=== PATIENT | female | born 1950 | race African-American/Black ===

== ENCOUNTER → 2016-06-27 | Outpatient (CLI) | payer OTHER, MEDICAID ==
[2015-09-28 11:19] VITALS: BP 183/88
[2016-06-27 10:46] LABS: BASOPHILS # (AUTO) 0.1 X10^3/uL (0.0-0.1); BASOPHILS % (AUTO) 0.7 % (0.2-1.0); EOSINOPHILS # (AUTO) 0.2 x10^3/uL (0.0-0.2); EOSINOPHILS % (AUTO) 1.5 % (0.9-2.9); HEMATOCRIT 37.7 % (36.0-47.0); HEMOGLOBIN 11.9 g/dL (12.0-16.0); LYMPHOCYTES # (AUTO) 2.8 X10^3/uL (1.3-2.9); LYMPHOCYTES % (AUTO) 18.6 % (21.0-51.0); MEAN CORPUSCULAR HEMOGLOBIN 25.9 pg (27.0-34.0); MEAN CORPUSCULAR HGB CONC 31.5 g/dL (33.0-35.0); MEAN CORPUSCULAR VOLUME 82.2 fL (80.0-100.0); MEAN PLATELET VOLUME 7.3 fL (7.4-11.0); MONOCYTES # (AUTO) 1.1 x10^3/uL (0.3-0.8); MONOCYTES % (AUTO) 7.4 % (0.0-13.0); NEUTROPHILS # (AUTO) 10.7 x10^3/uL (2.2-4.8); NEUTROPHILS % (AUTO) 71.8 % (42.0-75.0); PLATELET COUNT 329 X10^3/uL (150.0-450.0); RED BLOOD COUNT 4.59 X10^6/uL (3.5-5.4); RED CELL DISTRIBUTION WIDTH 15.2 % (11.6-16.5); RETICULOCYTE % 1.28 % (0.8-2.2); WHITE BLOOD COUNT 14.8 X10^3/uL (3.6-10.0)
[2016-06-27 11:00] LABS: ALANINE AMINOTRANSFERASE 40 Units/L (12-78); ALBUMIN 3.5 g/dL (3.4-5.0); ALKALINE PHOSPHATASE 73 Units/L (46-116); ASPARTATE AMINO TRANSFERASE 16 Units/L (15-37); BLOOD UREA NITROGEN 15 mg/dL (7-18); CALCIUM 8.4 mg/dL (8.5-10.1); CARBON DIOXIDE 30.2 mmol/L (21-32); CHLORIDE 106 mmol/L (98-107); CREATININE 0.89 mg/dL (0.55-1.02); GLUCOSE 85 mg/dL (65-99); MAGNESIUM 1.8 mg/dL (1.7-2.9); SODIUM 144 mmol/L (136-145); TOTAL PROTEIN 6.7 g/dL (6.4-8.2); eGFR BLACK RACES > 60 (>60); eGFR NON BLACK RACES > 60 (>60)
[2016-06-27 11:03] LABS: HEMOGLOBIN A1C 6.6 % (4.5-6.2)
[2016-06-27 11:10] LABS: CHOL/HDL RATIO 2.8 (0.0-5.0); TSH (3RD GENERATION) 0.334 uIU/mL (0.358-3.74)
[2016-06-27 11:41] LABS: PLATELET MORPHOLOGY COMMENT NORMAL (NORMAL)
[2016-06-30 14:08] LABS: METHYLMALONIC ACID <0.10 umol/L (0.00-0.40)
== END ==
LOC: LAB 08:57
PROVIDERS: ATTEND Nurse Practitioner Family
DX: K14.0 Glossitis (principal); I10 Essential (primary) hypertension; E78.4 Other hyperlipidemia; E03.8 Other specified hypothyroidism; K12.0 Recurrent oral aphthae; E55.9 Vitamin D deficiency, unspecified
CPT/HCPCS: 36415; 80053; 80061; 82306; 82607; 82615; 82746; 83036; 83735; 83918; 84207; 84443; 84630; 85025; 85045; 86256; 86340

== ENCOUNTER → 2016-06-28 | Outpatient (CLI) | payer OTHER, MEDICAID ==
[2015-09-28 11:19] VITALS: BP 183/88
[~2016-06-28] MED LIST: NS 100 ML IV 100 ML IV ONE
--- NOTE | 2016-06-28 13:56 | CT ---
HISTORY: Glossitis Study: CT soft tissue neck with and without contrast Comparison: 08/02/2012 Technique: Multiple axial images of the soft tissue neck were obtained from skull base to the aortic arch before and after the administration of IV contrast. Sagittal and coronal reformats were perfo rmed and reviewed. Dose reduction techniques including Automated Exposure Control (AEC) and adjustm ent of mA and kV were utilized. Findings: The visualized intracranial structures appear normal. The skull base and visualized cervical spine a re intact with mild spondylosis and degenerative disc space narrowing at C4-C5. The facial bones chalino ear grossly intact. There is minimal right sphenoid sinus mucosal thickening. Otherwise the visualiz ed paranasal sinuses and mastoid air cells are clear. The visualized lung apices are clear. The thyr oid gland appears normal. The aerodigestive structures appear normal. The prevertebral soft tissues and paraspinal soft tissue s are unremarkable. The epiglottis and laryngeal structures appear normal. No evidence of mass or ab scess. No pathologically enlarged lymph nodes are identified. No abnormal enhancement. The carotid, parotid, parapharyngeal, boat worker, and retropharyngeal space s appear normal. The pharyngeal mucosal surfaces appear grossly normal. Normal appearance of the par otid and submandibular glands. There is mild to moderate atherosclerotic disease at the bilateral ca rotid bifurcations. IMPRESSION: Normal CT of the neck soft tissues. Reported By:
== END ==
LOC: RAD 10:14
PROVIDERS: ATTEND Nurse Practitioner Family
DX: K14.0 Glossitis (principal); H92.02 Otalgia, left ear
CPT/HCPCS: 70492; A4222

== ENCOUNTER 2016-09-01 09:30 | Emergency (ER) | payer OTHER, MEDICAID ==
[2016-09-01 09:41] VITALS: BP 126/80; BMI 34.7
--- NOTE | 2016-09-01 10:36 | DR.GENAD ---
HPI - PCP Primary Care Physician: TULIO - Complaint/Symptoms Chief Complaint Doctors Comments: Patient states that she has had constipation for one week was advised to take laxatives and has had results with BM. A couple of times she notices blood in her stool and some in stool. She dmits to a colonscopy more than five years ago. Denies history of hemorrhoids. She was seen two times this week by her pulmologist due to COPD and was told she has CHF. Chief Complaint:: PT C/O BLOOD IN STOOL. PT STATES SHE WAS CONSTIPATED LAST WEEK AND SHE HAS GOT BETTER. THIS PAST SUNDAY SHE STARTED SEEING BRIGHT RED BLOOD. THROUGHOUT THE DAYS SHE STATES SHE HAS BEEN HAVING DARK TARY STOOLS WITH A BAD SMELL. - Source History Provided: Patient - Mode of Arrival Mode of Arrival: Ambulatory - Timing Onset of Chief Complaint: 08/27/16 PMH - PMH Past Medical History: Yes Past Medical History: Anxiety, Arthritis, CHF, COPD, Coronary Artery Disease, Depression, Migraines, Hypertension, Hypothyroidism Past Surgical History: Yes Surgical History: Cholecystectomy, Hysterectomy, Joint Replacement, Ortho Surgery - Family History History of Family Medical Conditions: Yes Family Medical History: Hypertension - Social History Does any household member use tobacco: Yes Alcohol Use: None Do you use any recreational Drugs:: No Lives With: Alone Lives Where: Home - infectious screening In the last 2 months have you had wt loss of >10#?: NO Have you had fever, night sweats or hemotysis?: No Have you traveled outside the country in the last 6 months?: No Isolation: Standard ROS - Review of Systems Eyes: No Symptoms Reported ENTM: No Symptoms Reported Respiratoy: No Symptoms Reported Cardiovascular: No Symptoms Reported Gastrointestinal/Abdominal: No Symptoms Reported Genitourinary: No Symptoms Reported Neurological: No Symptoms Reported Musculoskeletal: No Symptoms Reported Integumentary: No Symptoms Reported Hematologic/Lymphatic: No Symptoms Reported Endocrine: No Symptoms Reported Psychiatric: No Symptoms Reported All Other Systems: Reviewed and Negative PE - Vital Signs Vitals: Temperature 98.9 F Pulse Rate [Left Radial] 98 Pulse Rate 109 Respiratory Rate 20 Blood Pressure [Left Calf] 140/77 Blood Pressure [Left Arm] 153/82 Blood Pressure [Right Arm] 183/88 Blood Pressure 126/80 O2 Sat by Pulse Oximetry 98 - General Limitations: No Limitations General Appearance: Alert, In No Apparent Distress - Head Head Exam: Normal Inspection, Atraumatic - Eyes Eye exam: Normal Appearance, PERRL, EOMI - ENT ENT Exam: Normal Exam External Ear Exam: Normal External Inspection TM/Canal Exam: Bilateral Normal Nose Exam: Normal Nose Exam Mouth Exam: Normal Inspection Throat Exam: Normal Inspection - Chest Chest Inspection: Normal Inspection - Respiratory Respiratory Exam: Normal Lung Sounds Bilat Respiratory Exam: Bilateral Clear to Auscultation - Cardiovascular Cardiovascular Exam: Regular Rate, Normal Rhythm - Abdominal Exam Abdominal Exam: Normal Inspection Abdominal Tenderness: negative: RUQ, RLQ, LUQ, LLQ, Epigastrium, Suprapubic, Diffuse, Mild, Moderate, Severe, Other - Extremities Extremities Exam: Normal Inspection, Edema (2+pitting) - Back Back Exam: Normal Inspection - Neurologic Neurological Exam: Alert, Oriented X3, CN II-XII Intact - Psychiatric Psychiatric Exam: Normal Affect, Normal Mood - Skin Skin Exam: Warm, Dry, Intact (Rectum: w/o fissure, negative for hemorrhoid) ROR - Labs Reviewed Result Diagrams: 09/01/16 11:08 09/01/16 11:08 Laboratory: WBC 12.2 X10^3/uL (3.6-10.0) H 09/01/16 11:08 RBC 3.59 X10^6/uL (3.5-5.4) 09/01/16 11:08 Hgb 9.3 g/dL (12.0-16.0) L 09/01/16 11:08 Hct 29.3 % (36.0-47.0) L 09/01/16 11:08 MCV 81.8 fL (80.0-100.0) 09/01/16 11:08 MCH 25.8 pg (27.0-34.0) L 09/01/16 11:08 MCHC 31.5 g/dL (33.0-35.0) L 09/01/16 11:08 RDW 16.6 % (11.6-16.5) H 09/01/16 11:08 Plt Count 407 X10^3/uL (150.0-450.0) 09/01/16 11:08 Plt Count Comment Adequate (ADEQUATE) 09/01/16 11:08 MPV 7.8 fL (7.4-11.0) 09/01/16 11:08 Neut % 66.0 % (42.0-75.0) 09/01/16 11:08 Lymph % 21.2 % (21.0-51.0) 09/01/16 11:08 [place] % 8.5 % (0.0-13.0) 09/01/16 11:08 Eos % 3.6 % (0.9-2.9) H 09/01/16 11:08 Baso % 0.7 % (0.2-1.0) 09/01/16 11:08 Neut # 8.0 x10^3/uL (2.2-4.8) H 09/01/16 11:08 Lymph # 2.6 X10^3/uL (1.3-2.9) 09/01/16 11:08 [place] # 1.0 x10^3/uL (0.3-0.8) H 09/01/16 11:08 Eos # 0.4 x10^3/uL (0.0-0.2) H 09/01/16 11:08 Baso # 0.1 X10^3/uL (0.0-0.1) 09/01/16 11:08 Absolute Nucleated RBC 0.1 /100WBC 09/01/16 11:08 Plt Morphology Comment Normal (NORMAL) 09/01/16 11:08 RBC Morphology Normal (NORMAL) 09/01/16 11:08 Sodium 140 mmol/L (136-145) 09/01/16 11:08 Corrected Sodium TNP 09/01/16 11:08 Potassium 4.1 mmol/L (3.5-5.1) 09/01/16 11:08 Chloride 106 mmol/L (98-107) 09/01/16 11:08 Carbon Dioxide 26.6 mmol/L (21-32) 09/01/16 11:08 BUN 15 mg/dL (7-18) 09/01/16 11:08 Creatinine 1.00 mg/dL (0.55-1.02) 09/01/16 11:08 Est GFR (MDRD) Af Amer > 60 (>60) 09/01/16 11:08 Est GFR (MDRD) Non-Af 59 (>60) 09/01/16 11:08 Glucose 97 mg/dL (65-99) 09/01/16 11:08 Calcium 8.8 mg/dL (8.5-10.1) 09/01/16 11:08 Corrected Calcium 9.4 mg/dL (8.5-10.1) 09/01/16 11:08 Total Bilirubin 0.30 mg/dL (0.2-1.0) 09/01/16 11:08 AST 22 Units/L (15-37) 09/01/16 11:08 ALT 30 Units/L (12-78) 09/01/16 11:08 Alkaline Phosphatase 63 Units/L (46-116) 09/01/16 11:08 Total Protein 7.0 g/dL (6.4-8.2) 09/01/16 11:08 Albumin 3.2 g/dL (3.4-5.0) L 09/01/16 11:08 Globulin 3.8 g/dL (2.5-4.5) 09/01/16 11:08 Albumin/Globulin Ratio 0.8 Ratio (1.1-2.1) L 09/01/16 11:08 Stool Description Fob tube 09/01/16 10:51 Stl Occult Blood (IFOB) Positive (NEGATIVE) A 09/01/16 10:51 - Diagnosis Discharge Problem: Rectal bleed - Discharge Plan Condition: Stable - Follow ups/Referrals Follow ups/Referrals: NATANAEL ANTUNEZ [Primary Care Provider] - 3 days - Instructions
[2016-09-01 11:31] LABS: ALANINE AMINOTRANSFERASE 30 Units/L (12-78); ALBUMIN 3.2 g/dL (3.4-5.0); ALKALINE PHOSPHATASE 63 Units/L (46-116); ASPARTATE AMINO TRANSFERASE 22 Units/L (15-37); BLOOD UREA NITROGEN 15 mg/dL (7-18); CALCIUM 8.8 mg/dL (8.5-10.1); CARBON DIOXIDE 26.6 mmol/L (21-32); CHLORIDE 106 mmol/L (98-107); COR CA(FOR HYPOALB) 9.4 mg/dL (8.5-10.1); GLUCOSE 97 mg/dL (65-99); SODIUM 140 mmol/L (136-145); eGFR BLACK RACES > 60 (>60); eGFR NON BLACK RACES 59 (>60)
[2016-09-01 12:04] LABS: BASOPHILS # (AUTO) 0.1 X10^3/uL (0.0-0.1); BASOPHILS % (AUTO) 0.7 % (0.2-1.0); EOSINOPHILS # (AUTO) 0.4 x10^3/uL (0.0-0.2); EOSINOPHILS % (AUTO) 3.6 % (0.9-2.9); HEMATOCRIT 29.3 % (36.0-47.0); HEMOGLOBIN 9.3 g/dL (12.0-16.0); LYMPHOCYTES # (AUTO) 2.6 X10^3/uL (1.3-2.9); LYMPHOCYTES % (AUTO) 21.2 % (21.0-51.0); MEAN CORPUSCULAR HEMOGLOBIN 25.8 pg (27.0-34.0); MEAN CORPUSCULAR HGB CONC 31.5 g/dL (33.0-35.0); MEAN CORPUSCULAR VOLUME 81.8 fL (80.0-100.0); MEAN PLATELET VOLUME 7.8 fL (7.4-11.0); MONOCYTES % (AUTO) 8.5 % (0.0-13.0); PLATELET COUNT 407 X10^3/uL (150.0-450.0); RED BLOOD COUNT 3.59 X10^6/uL (3.5-5.4); RED CELL DISTRIBUTION WIDTH 16.6 % (11.6-16.5); WHITE BLOOD COUNT 12.2 X10^3/uL (3.6-10.0)
[2016-09-01 12:05] LABS: PLATELET MORPHOLOGY COMMENT NORMAL (NORMAL)
== END 2016-09-01 11:55 | disposition home or self-care (01) ==
LOC: ER 09:46
DX: K62.5 Hemorrhage of anus and rectum (principal)
CPT/HCPCS: 36415; 80053; 82270; 85025; 99282

== ENCOUNTER → 2016-09-11 | Outpatient (CLI) | payer OTHER, MEDICAID ==
[2016-09-01 09:41] VITALS: BP 126/80
[2016-09-11 13:57] LABS: ALANINE AMINOTRANSFERASE 24 Units/L (12-78); ALBUMIN 3.2 g/dL (3.4-5.0); ALKALINE PHOSPHATASE 66 Units/L (46-116); ASPARTATE AMINO TRANSFERASE 16 Units/L (15-37); BLOOD UREA NITROGEN 7 mg/dL (7-18); CALCIUM 9.1 mg/dL (8.5-10.1); CARBON DIOXIDE 24.8 mmol/L (21-32); CHLORIDE 106 mmol/L (98-107); COR CA(FOR HYPOALB) 9.7 mg/dL (8.5-10.1); COR NA(FOR HYPERGLY) 142 mmol/L (136-145); GLUCOSE 111 mg/dL (65-99); SODIUM 142 mmol/L (136-145); TOTAL PROTEIN 7.2 g/dL (6.4-8.2); eGFR BLACK RACES > 60 (>60); eGFR NON BLACK RACES 59 (>60)
[2016-09-11 14:21] LABS: BASOPHILS # (AUTO) 0.1 X10^3/uL (0.0-0.1); BASOPHILS % (AUTO) 1.1 % (0.2-1.0); EOSINOPHILS # (AUTO) 0.2 x10^3/uL (0.0-0.2); EOSINOPHILS % (AUTO) 2.3 % (0.9-2.9); HEMATOCRIT 30.2 % (36.0-47.0); HEMOGLOBIN 9.5 g/dL (12.0-16.0); LYMPHOCYTES # (AUTO) 2.4 X10^3/uL (1.3-2.9); LYMPHOCYTES % (AUTO) 24.4 % (21.0-51.0); MEAN CORPUSCULAR HEMOGLOBIN 25.8 pg (27.0-34.0); MEAN CORPUSCULAR HGB CONC 31.4 g/dL (33.0-35.0); MEAN PLATELET VOLUME 7.3 fL (7.4-11.0); MONOCYTES % (AUTO) 9.6 % (0.0-13.0); NEUTROPHILS # (AUTO) 6.2 x10^3/uL (2.2-4.8); NEUTROPHILS % (AUTO) 62.6 % (42.0-75.0); PLATELET COUNT 700 X10^3/uL (150.0-450.0); RED BLOOD COUNT 3.68 X10^6/uL (3.5-5.4); RED CELL DISTRIBUTION WIDTH 17.3 % (11.6-16.5); RETICULOCYTE % 3.76 % (0.8-2.2); WHITE BLOOD COUNT 9.9 X10^3/uL (3.6-10.0)
[2016-09-11 14:36] LABS: HYPOCHROMASIA 1+; PLATELET MORPHOLOGY COMMENT NORMAL (NORMAL); POIKILOCYTOSIS 1+
[2016-09-14 06:13] LABS: METHYLMALONIC ACID 0.14 umol/L (0.00-0.40)
== END ==
LOC: LAB 13:11
PROVIDERS: ATTEND Nurse Practitioner Family
DX: I10 Essential (primary) hypertension (principal); R20.0 Anesthesia of skin
CPT/HCPCS: 36415; 80053; 82607; 82615; 82746; 83918; 85025; 85045; 86256; 86340

== ENCOUNTER → 2016-09-15 | Outpatient (CLI) | payer OTHER, MEDICAID ==
[2016-09-01 09:41] VITALS: BP 126/80
== END ==
LOC: RT 14:13
PROVIDERS: ATTEND Nurse Practitioner Family
DX: R20.0 Anesthesia of skin (principal)
CPT/HCPCS: 95909

== ENCOUNTER → 2016-09-18 | Outpatient (CLI) | payer OTHER, MEDICAID ==
[2015-09-28 11:19] VITALS: BP 183/88
[~2016-09-18] MED LIST changes: +LEXISCAN IV ONE; -NS 100 ML IV 100 ML IV ONE
[2016-09-18 09:29] LABS: BASOPHILS # (AUTO) 0.1 X10^3/uL (0.0-0.1); BASOPHILS % (AUTO) 1.2 % (0.2-1.0); EOSINOPHILS # (AUTO) 0.3 x10^3/uL (0.0-0.2); EOSINOPHILS % (AUTO) 2.9 % (0.9-2.9); HEMATOCRIT 31.5 % (36.0-47.0); HEMOGLOBIN 9.9 g/dL (12.0-16.0); LYMPHOCYTES # (AUTO) 2.8 X10^3/uL (1.3-2.9); LYMPHOCYTES % (AUTO) 24.7 % (21.0-51.0); MEAN CORPUSCULAR HEMOGLOBIN 25.2 pg (27.0-34.0); MEAN CORPUSCULAR HGB CONC 31.3 g/dL (33.0-35.0); MEAN CORPUSCULAR VOLUME 80.5 fL (80.0-100.0); MEAN PLATELET VOLUME 6.8 fL (7.4-11.0); MONOCYTES % (AUTO) 8.6 % (0.0-13.0); NEUTROPHILS % (AUTO) 62.6 % (42.0-75.0); PLATELET COUNT 597 X10^3/uL (150.0-450.0); RED BLOOD COUNT 3.91 X10^6/uL (3.5-5.4); RED CELL DISTRIBUTION WIDTH 16.7 % (11.6-16.5); WHITE BLOOD COUNT 11.2 X10^3/uL (3.6-10.0)
[2016-09-18 09:50] LABS: HYPOCHROMASIA SLIGHT; PLATELET MORPHOLOGY COMMENT NORMAL (NORMAL)
== END ==
LOC: RAD 08:57
PROVIDERS: ATTEND Internal Medicine Cardiovascular Disease
DX: R07.89 Other chest pain (principal); D61.818 Other pancytopenia
CPT/HCPCS: 36415; 85025; A4222; J2785

== ENCOUNTER 2016-09-28 07:18 | Day surgery (SDC) | payer OTHER, MEDICAID ==
[2016-09-28] MEDS ORDERED: D5 LR 1000 ML 1,000 ML IV ONE (07:47)
[2016-09-28] MEDS ORDERED: DIPRIVAN VIAL 20 ML ONE (09:07)
[2016-09-28] MEDS ORDERED: DIPRIVAN VIAL 10 ML ONE (09:24)
[2016-09-28 09:42] VITALS: BP 144/73
== END 2016-09-28 09:44 | disposition home or self-care (01) ==
LOC: SURG1 07:18
PROVIDERS: ATTEND Internal Medicine Gastroenterology
PROC: 0DJD8ZZ Inspection of Lower Intestinal Tract, Via Natural or Artificial Opening Endoscopic (ICD-10-PCS; principal; 2016-09-28 09:15)
PROC: 0DBM8ZX Excision of Descending Colon, Via Natural or Artificial Opening Endoscopic, Diagnostic (ICD-10-PCS; principal; 2016-09-28 09:15)
DX: K92.1 Melena (principal); R19.4 Change in bowel habit; K63.5 Polyp of colon; K64.0 First degree hemorrhoids; D12.4 Benign neoplasm of descending colon
CPT/HCPCS: A4217; J3490; J7120

== ENCOUNTER → 2016-10-02 | Outpatient (CLI) | payer OTHER, MEDICAID | LOC: RAD 08:47 | PROVIDERS: ATTEND Nurse Practitioner Family | DX: R22.32 Localized swelling, mass and lump, left upper limb (principal); R07.89 Other chest pain ==

== ENCOUNTER → 2016-10-11 | Outpatient (CLI) | payer OTHER, MEDICAID ==
[2016-09-28 09:42] VITALS: BP 144/73
--- NOTE | 2016-10-11 12:02 | MRI ---
HISTORY: Numbness of fingers. Study: MRI cervical spine without contrast. Comparison: Cervical spine series dated November 04, 2013. Technique: Multiplanar multisequence MRI of the cervical spine was obtained utilizing standard depar tmental protocol. Findings: The visualized posterior fossa appears normal. No cerebellar tonsillar ectopia. No acute fracture or listhesis. Multilevel disc desiccation with associated mild disc height loss and type 2 Modic endpl ate changes. 7 mm T1/T2 bright focus within the T1 vertebral body most likely representing a benign hemangioma. Remaining bone marrow signal is unremarkable. The visualized spinal cord demonstrates no rmal course, caliber, and signal characteristics. C2 -- C3: No significant disc bulge, neural foraminal narrowing, or spinal canal stenosis. C3 -- C4: Broad-based disc bulge with associated uncovertebral hypertrophy causing bilateral mild/mo derate neural foraminal narrowing and spinal canal stenosis to 9 mm. C4 -- C5: Broad-based disc bulge causing spinal canal stenosis to 11 mm. No significant neural santosh inal narrowing. C5 -- C6: Broad-based disc bulge and associated uncovertebral hypertrophy causing mild/moderate bila teral neural foraminal narrowing and spinal canal stenosis to 11 mm. C6 -- C7: Broad-based disc bulge and associated uncovertebral hypertrophy causing mild bilateral alis ral foraminal narrowing and spinal canal stenosis to 10 mm. C7 -- T1: No significant disc bulge, neural foraminal narrowing, or spinal canal stenosis. IMPRESSION: Broad-based disc bulges and associated uncovertebral hypertrophy at C3 through C7 causin g mild to moderate neural foraminal narrowing. Multilevel spinal canal stenosis to 9 mm. Reported By:
== END | disposition home or self-care (01) ==
LOC: RAD 10:35
PROVIDERS: ATTEND Nurse Practitioner Family
DX: R20.0 Anesthesia of skin (principal); M50.221 Other cervical disc displacement at C4-C5 level; M50.222 Other cervical disc displacement at C5-C6 level; M50.223 Other cervical disc displacement at C6-C7 level
CPT/HCPCS: 72141

== ENCOUNTER → 2016-11-08 | Outpatient (CLI) | payer OTHER, MEDICAID ==
[2016-11-08 10:35] LABS: BASOPHILS # (AUTO) 0.1 X10^3/uL (0.0-0.1); BASOPHILS % (AUTO) 0.6 % (0.2-1.0); EOSINOPHILS % (AUTO) 0.2 % (0.9-2.9); HEMOGLOBIN 11.1 g/dL (12.0-16.0); LYMPHOCYTES # (AUTO) 2.8 X10^3/uL (1.3-2.9); LYMPHOCYTES % (AUTO) 23.7 % (21.0-51.0); MEAN CORPUSCULAR HEMOGLOBIN 24.8 pg (27.0-34.0); MEAN CORPUSCULAR HGB CONC 31.6 g/dL (33.0-35.0); MEAN CORPUSCULAR VOLUME 78.5 fL (80.0-100.0); MEAN PLATELET VOLUME 7.3 fL (7.4-11.0); MONOCYTES # (AUTO) 1.1 x10^3/uL (0.3-0.8); MONOCYTES % (AUTO) 9.1 % (0.0-13.0); NEUTROPHILS # (AUTO) 7.8 x10^3/uL (2.2-4.8); NEUTROPHILS % (AUTO) 66.4 % (42.0-75.0); PLATELET COUNT 445 X10^3/uL (150.0-450.0); RED BLOOD COUNT 4.46 X10^6/uL (3.5-5.4); RED CELL DISTRIBUTION WIDTH 16.4 % (11.6-16.5); WHITE BLOOD COUNT 11.8 X10^3/uL (3.6-10.0)
[2016-11-08 10:44] LABS: HEMOGLOBIN A1C 6.3 % (4.5-6.2)
[2016-11-08 10:45] LABS: PLATELET MORPHOLOGY COMMENT NORMAL (NORMAL)
[2016-11-08 10:55] LABS: ALANINE AMINOTRANSFERASE 29 Units/L (12-78); ALBUMIN 3.2 g/dL (3.4-5.0); ALKALINE PHOSPHATASE 55 Units/L (46-116); ASPARTATE AMINO TRANSFERASE 15 Units/L (15-37); BLOOD UREA NITROGEN 14 mg/dL (7-18); CALCIUM 7.8 mg/dL (8.5-10.1); CARBON DIOXIDE 33.4 mmol/L (21-32); CHLORIDE 105 mmol/L (98-107); CHOL/HDL RATIO 2.4 (0.0-5.0); CHOLESTEROL 130 mg/dL (0-200); COR CA(FOR HYPOALB) 8.4 mg/dL (8.5-10.1); CREATININE 0.75 mg/dL (0.55-1.02); FREE T4 (FREE THYROXINE) 0.82 ng/dL (0.76-1.46); GLUCOSE 81 mg/dL (65-99); HDL CHOLESTEROL 55 mg/dL (40-60); SODIUM 143 mmol/L (136-145); TOTAL PROTEIN 6.5 g/dL (6.4-8.2); TRIGLYCERIDES 68 mg/dL (0-150); TSH (3RD GENERATION) 0.183 uIU/mL (0.358-3.74); eGFR BLACK RACES > 60 (>60); eGFR NON BLACK RACES > 60 (>60)
[2016-11-08 11:11] LABS: ERYTHROCYTE SEDIMENTATION RATE 17 MM/HOUR (0-20)
[2016-11-08 11:15] LABS: CREATININE,URINE 206.52 mg/dL (29-226); MICROALBUMIN,URINE 26.9 mg/L
== END ==
LOC: LAB 09:48
PROVIDERS: ATTEND Nurse Practitioner Family
DX: E78.4 Other hyperlipidemia (principal); D64.89 Other specified anemias; I10 Essential (primary) hypertension; E03.8 Other specified hypothyroidism; M15.0 Primary generalized (osteo)arthritis; E11.9 Type 2 diabetes mellitus without complications
CPT/HCPCS: 36415; 80053; 80061; 82043; 83036; 84439; 84443; 84481; 85025; 85652; 86140

== ENCOUNTER → 2016-11-09 | Outpatient (CLI) | payer OTHER, MEDICAID ==
--- NOTE | 2016-11-09 15:06 | RAD ---
HISTORY: Abnormal lung sounds. Study: PA and lateral chest. Comparison: Chest x-ray dated September 21, 2016. Findings: The trachea is midline. The cardiac silhouette is unchanged. The lungs are clear without focal inf iltrate or effusion. The bony thorax unchanged. IMPRESSION: 1. No acute cardiopulmonary disease. Reported By:
== END ==
LOC: LAB 14:27
PROVIDERS: ATTEND Nurse Practitioner Family
DX: R59.1 Generalized enlarged lymph nodes (principal); R09.89 Other specified symptoms and signs involving the circulatory and respiratory systems
CPT/HCPCS: 71020

== ENCOUNTER 2016-11-10 07:01 | Day surgery (SDC) | payer OTHER, MEDICAID ==
[2016-11-10] MEDS ORDERED: NS 50 ML IV + SPIKE MINIBAG* 100 ML IV ONE (07:09)
[2016-11-10] MEDS ORDERED: LR 1000 ML IV 1,000 ML IV ONE (07:09)
[2016-11-10] MEDS ORDERED: DUONEB 0.5 MG/3 MG NEB ONE (07:21)
[2016-11-10] MEDS ORDERED: PROVENTIL NEB TX 0.083% 2.5MG/ 3ML ONE (07:27)
[2016-11-10] MEDS: MARCAINE 0.25% INJ ONE ×2 (07:50→08:44)
[2016-11-10] MEDS: ANCEF VIAL 1 GM ONE ×2 (07:50→08:20)
[2016-11-10] MEDS ORDERED: FENTANYL INJ 100 mcg ONE (07:59)
[2016-11-10] MEDS ORDERED: NS IRRIGATION 1000 ML 500 ML IR ONE (08:54)
--- NOTE | 2016-11-10 09:57 | RAD ---
HISTORY: Port-A-Cath placement Study: Single view of the chest Comparison: November 09, 2016 Findings: The trachea is midline. The cardiac silhouette is enlarged. The lungs are clear without focal infi ltrate or effusion. A left-sided Port-A-Cath is noted with the tip projecting near the cavoatrial junction. The aorta is partially calcified and tortuous. Postoperative changes of the right humerus are partially visualized. IMPRESSION: 1. Cardiomegaly. 2. Port-A-Cath placement as noted above. Reported By:
[2016-11-10 10:40] VITALS: BP 150/85
== END 2016-11-10 10:40 | disposition home or self-care (01) | DRG 301 ==
LOC: SURG1 07:01
PROVIDERS: ATTEND Surgery
PROC: 0JHF3XZ Insertion of Tunneled Vascular Access Device into Left Upper Arm Subcutaneous Tissue and Fascia, Percutaneous Approach (ICD-10-PCS; principal; 2016-11-10 08:00)
PROC: 05HN33Z Insertion of Infusion Device into Left Internal Jugular Vein, Percutaneous Approach (ICD-10-PCS; principal; 2016-11-10 08:00)
PROC: B504YZZ Plain Radiography of Left Jugular Veins using Other Contrast (ICD-10-PCS; principal; 2016-11-10 08:00)
DX: I87.2 Venous insufficiency (chronic) (peripheral) (principal)
CPT/HCPCS: 71010; 76000; 94640; A4222; S0020; J0690; J3010; J7120; J7613; J7620

== ENCOUNTER → 2016-12-14 | Outpatient (CLI) | payer OTHER, MEDICAID ==
--- NOTE | 2016-12-15 09:49 | MRI ---
HISTORY: Lumbar spondylosis, low back pain Study: MRI lumbar spine Comparison: May 26, 2016 Technique: Multiplanar multi-sequence MRI of the lumbar spine was obtained. Sagittal T1, sagittal T2 , and stir weighted images, axial T1, and axial T2 images were obtained. Findings: The lumbar spine demonstrates normal alignment with the expected signal characteristics of the bone m arrow. The conus of the cord terminates normally. T12 -- L1: No evidence for compressive disc disease. The neural foramina are patent. The joints are n ormal. L1 -- L2: No evidence for compressive disc disease. The neural foramina are patent. The joints are no rmal. L2 -- L3: Mild concentric disc bulging contributes along with bilateral facet arthropathy to mild lat eral recess narrowing on the right. The left neural foramen is patent. L3 -- L4: Mild concentric disc bulging contributes along with mild facet arthropathy to very mild lat eral recess narrowing bilaterally. L4 -- L5: Mild concentric disc bulging contributes along with pedicular shortening and facet arthropa thy to mild lateral recess narrowing bilaterally right greater than left. L5 -- S1: Broad-based disk bulging does not cause significant thecal sac effacement but contributes a long with mild bilateral facet arthropathy to lateral recess and foraminal narrowing bilaterally. IMPRESSION: As above Reported By:
== END ==
LOC: RAD 14:49
PROVIDERS: ATTEND Nurse Practitioner Family
DX: M43.06 Spondylolysis, lumbar region (principal); M51.26 Other intervertebral disc displacement, lumbar region; M54.5 Low back pain
CPT/HCPCS: 72148

== ENCOUNTER → 2017-02-06 | Outpatient (CLI) | payer OTHER, MEDICAID ==
[2017-02-06 10:01] LABS: BASOPHILS # (AUTO) 0.1 X10^3/uL (0.0-0.1); EOSINOPHILS % (AUTO) 0.1 % (0.9-2.9); HEMATOCRIT 37.2 % (36.0-47.0); HEMOGLOBIN 11.8 g/dL (12.0-16.0); LYMPHOCYTES # (AUTO) 2.7 X10^3/uL (1.3-2.9); LYMPHOCYTES % (AUTO) 20.6 % (21.0-51.0); MEAN CORPUSCULAR HEMOGLOBIN 25.3 pg (27.0-34.0); MEAN CORPUSCULAR HGB CONC 31.7 g/dL (33.0-35.0); MEAN CORPUSCULAR VOLUME 79.7 fL (80.0-100.0); MEAN PLATELET VOLUME 7.3 fL (7.4-11.0); MONOCYTES % (AUTO) 7.5 % (0.0-13.0); NEUTROPHILS # (AUTO) 9.5 x10^3/uL (2.2-4.8); NEUTROPHILS % (AUTO) 70.8 % (42.0-75.0); PLATELET COUNT 387 X10^3/uL (150.0-450.0); RED BLOOD COUNT 4.67 X10^6/uL (3.5-5.4); RED CELL DISTRIBUTION WIDTH 17.6 % (11.6-16.5); WHITE BLOOD COUNT 13.3 X10^3/uL (3.6-10.0)
[2017-02-06 10:17] LABS: HEMOGLOBIN A1C 5.9 % (4.5-6.2); PLATELET MORPHOLOGY COMMENT NORMAL (NORMAL)
[2017-02-06 10:26] LABS: ALANINE AMINOTRANSFERASE 20 Units/L (12-78); ALBUMIN 3.6 g/dL (3.4-5.0); ALKALINE PHOSPHATASE 65 Units/L (46-116); ASPARTATE AMINO TRANSFERASE 15 Units/L (15-37); BLOOD UREA NITROGEN 14 mg/dL (7-18); CALCIUM 9.4 mg/dL (8.5-10.1); CHLORIDE 101 mmol/L (98-107); CHOLESTEROL 120 mg/dL (0-200); CREATININE 1.05 mg/dL (0.55-1.02); FREE T4 (FREE THYROXINE) 0.73 ng/dL (0.76-1.46); HDL CHOLESTEROL 60 mg/dL (40-60); SODIUM 142 mmol/L (136-145); TOTAL PROTEIN 7.7 g/dL (6.4-8.2); TRIGLYCERIDES 39 mg/dL (0-150); TSH (3RD GENERATION) 0.423 uIU/mL (0.358-3.74); eGFR BLACK RACES > 60 (>60); eGFR NON BLACK RACES 55 (>60)
[2017-02-06 10:51] LABS: CREATININE,URINE 163.02 mg/dL (29-226); MICROALBUMIN,URINE 11.5 mg/L
[2017-02-06 10:54] LABS: ERYTHROCYTE SEDIMENTATION RATE 28 MM/HOUR (0-20)
== END ==
LOC: LAB 09:08
PROVIDERS: ATTEND Nurse Practitioner Family
DX: I10 Essential (primary) hypertension (principal); E11.9 Type 2 diabetes mellitus without complications; E03.8 Other specified hypothyroidism; E78.4 Other hyperlipidemia; M15.0 Primary generalized (osteo)arthritis
CPT/HCPCS: 36415; 80053; 80061; 82043; 83036; 84439; 84443; 84481; 85025; 85652; 86140

== ENCOUNTER → 2017-03-05 | Outpatient (CLI) | payer OTHER, MEDICAID ==
--- NOTE | 2017-03-05 13:00 | RAD ---
Examination: Abdomen series with PA chest History: Abdominal pain and swelling Findings: PA chest demonstrates normal heart size, arteriosclerotic aorta. There are interstitial louann nges in the lung base these which may reflect mild chronic thickening. A left IJ injection port exten ds to the right atrium. No pleural fluid or pneumoperitoneum identified. In the abdomen, supine and upright views demonstrate no evidence for localized ileus or intestinal ob struction. No free air, ascites or pathologic calcification is seen. A right hip prosthesis is observ ed. Impression: No acute chest or abdominal abnormality noted. Postsurgical findings. Reported By:
== END ==
LOC: RAD 12:04
PROVIDERS: ATTEND Nurse Practitioner Family
DX: R10.84 Generalized abdominal pain (principal)
CPT/HCPCS: 74022

== ENCOUNTER → 2017-03-23 | Outpatient (CLI) | payer OTHER, MEDICAID ==
--- NOTE | 2017-03-23 13:44 | RAD ---
Examination: Left hip, three views History: Left hip pain Findings: There is slight narrowing of the joint space. Subchondral cystic changes are present in the femoral head. No fracture is seen. There is a deep acetabulum, extending medial to the ilioischial l ine. Impression: Left hip osteoarthritis. Coxa profunda. Reported By:
== END ==
LOC: RAD 12:41
PROVIDERS: ATTEND Nurse Practitioner Family
DX: M25.552 Pain in left hip (principal); M16.12 Unilateral primary osteoarthritis, left hip
CPT/HCPCS: 73501

== ENCOUNTER → 2017-03-26 | Outpatient (CLI) | payer OTHER, MEDICAID ==
--- NOTE | 2017-03-26 16:41 | RAD ---
Examination: Lumbar spine, five views History: Low back pain Findings: Normal curvature, segmentation and alignment. There is marked disc degeneration at the L5-S 1 interspace. No evidence for fracture, pedicle destruction or sacroiliac disease. A right hip arthro plasty is present. Impression: No acute process identified. Findings of degenerative disc disease at the L5-S1 level. Reported By:
== END | disposition home or self-care (01) | DRG 552 ==
LOC: RAD 15:22
PROVIDERS: ATTEND Orthopaedic Surgery
DX: M54.5 Low back pain (principal); M51.37 Other intervertebral disc degeneration, lumbosacral region
CPT/HCPCS: 72110

== ENCOUNTER → 2017-04-25 | Outpatient (CLI) | payer OTHER, MEDICAID ==
--- NOTE | 2017-04-25 12:54 | RAD ---
HISTORY: Left hip pain that radiates down left leg. Study: Left hip: Two views Comparison: 03/23/2017 Findings: The pelvic ring is intact. Minimal degenerative changes noted the sacroiliac joints. The pubic rami are intact. The left hip shows delete minimal joint space narrowing. Mild acetabular spurring is noted. There i s suggestion of possible subchondral cyst formation in the head of the femur. No acute bony abnormal ities are identified. IMPRESSION: 1. Mild degenerative change in the left hip. 2. No acute bony abnormalities are identified. 3. No significant change is noted when compared to the prior examination. Reported By:
== END ==
LOC: RAD 11:51
PROVIDERS: ATTEND Orthopaedic Surgery
DX: M25.552 Pain in left hip (principal)
CPT/HCPCS: 73501

== ENCOUNTER 2017-04-26 09:01 | Day surgery (SDC) | payer OTHER, MEDICAID ==
[2017-04-26] MEDS ORDERED: NS 1000 ML 1,000 ML ONE (09:07)
[2017-04-26] MEDS ORDERED: DIPRIVAN VIAL 20 ML ONE (10:40)
[2017-04-26 11:26] VITALS: BP 153/80
== END 2017-04-26 11:15 | disposition home or self-care (01) ==
LOC: SURG1 09:01
PROVIDERS: ATTEND Internal Medicine Gastroenterology
PROC: 0DJ08ZZ Inspection of Upper Intestinal Tract, Via Natural or Artificial Opening Endoscopic (ICD-10-PCS; principal; 2017-04-26 11:15)
PROC: 0DB68ZX Excision of Stomach, Via Natural or Artificial Opening Endoscopic, Diagnostic (ICD-10-PCS; principal; 2017-04-26 11:15)
PROC: 0D757ZZ Dilation of Esophagus, Via Natural or Artificial Opening (ICD-10-PCS; principal; 2017-04-26 11:15)
PROC: 0DB88ZX Excision of Small Intestine, Via Natural or Artificial Opening Endoscopic, Diagnostic (ICD-10-PCS; principal; 2017-04-26 11:15)
DX: R10.13 Epigastric pain (principal); R13.19 Other dysphagia; K21.9 Gastro-esophageal reflux disease without esophagitis; R11.0 Nausea; K25.9 Gastric ulcer, unspecified as acute or chronic, without hemorrhage or perforation; K20.8 Other esophagitis; K22.2 Esophageal obstruction
CPT/HCPCS: A4217; J3490

== ENCOUNTER → 2017-05-25 | Outpatient (CLI) | payer OTHER, MEDICAID ==
[2017-04-26 11:26] VITALS: BP 153/80
--- NOTE | 2017-05-25 11:13 | VAS ---
HISTORY: Extremity pain, swelling, and edema Study: Right lower extremity Doppler venous ultrasound. TECHNIQUE: Multiple steve scale and color flow Doppler images of the deep venous system were obtained of the right lower extremity. FINDINGS: The deep venous system of the right lower extremity evaluated from the level of the common femoral ve in through the popliteal vein. Normal color flow and augmentation can be observed. In addition, nor mal compression is seen throughout the deep venous system. IMPRESSION: 1. Negative examination for DVT. Reported By:
== END ==
LOC: RAD 09:40
PROVIDERS: ATTEND Orthopaedic Surgery
DX: R60.0 Localized edema (principal)
CPT/HCPCS: 93971

== ENCOUNTER → 2017-06-21 | Outpatient (CLI) | payer OTHER, MEDICAID ==
[2017-06-27 06:45] LABS: PARATHYROID HORMONE INT 30 pg/mL (15-65)
== END ==
LOC: LAB 16:13
PROVIDERS: ATTEND Nurse Practitioner Family
DX: M85.88 Other specified disorders of bone density and structure, other site (principal)
CPT/HCPCS: 36415; 82310; 82330; 83970

== ENCOUNTER 2017-07-02 14:15 | Day surgery (SDC) | payer OTHER, MEDICAID ==
[2017-07-02] MEDS ORDERED: KENALOG INJ 40 MG IM ONE (14:29)
[2017-07-02] MEDS ORDERED: XYLOCAINE 1 % (PLAIN) ONE (14:29)
[2017-07-02] MEDS ORDERED: MARCAINE 0.25% INJ ONE (14:30)
[2017-07-02 15:05] VITALS: BP 146/76
== END 2017-07-02 15:07 | disposition home or self-care (01) | DRG 552 ==
LOC: SURG1 14:15
PROVIDERS: ATTEND Orthopaedic Surgery
PROC: 3E0R33Z Introduction of Anti-inflammatory into Spinal Canal, Percutaneous Approach (ICD-10-PCS; principal; 2017-07-02 12:45)
PROC: 3E0R3BZ Introduction of Anesthetic Agent into Spinal Canal, Percutaneous Approach (ICD-10-PCS; principal; 2017-07-02 12:45)
DX: M54.17 Radiculopathy, lumbosacral region (principal)
CPT/HCPCS: 62323; 76000; A4222; S0020; J2001; J3301

== ENCOUNTER → 2017-07-19 | Outpatient (CLI) | payer OTHER, MEDICAID ==
[2017-07-02 15:05] VITALS: BP 146/76
--- NOTE | 2017-07-19 15:43 | RAD ---
HISTORY: Shortness of breath. Study: PA and lateral chest. Comparison: Chest x-ray dated November 10, 2016. Findings: Stable appearance of a left chest Port-A-Cath. The cardiac silhouette is unremarkable. Chronic emphy sematous changes. Bibasilar scarring versus atelectasis. No obvious focal consolidation, pleural effu miroslava, or pneumothorax. The bony thorax is unremarkable. IMPRESSION: No acute cardiopulmonary disease. Reported By:
[2017-07-19 15:55] LABS: BILIRUBIN,URINE 1+ (NEGATIVE); BLOOD/HEMOGLOBIN,URINE NEGATIVE (NEGATIVE); GLUCOSE, URINE NEGATIVE (NEGATIVE); KETONES,URINE NEGATIVE (NEGATIVE); LEUKOCYTE ESTERASE ,URINE 1+ (NEGATIVE); NITRITES,URINE NEGATIVE (NEGATIVE); PROTEIN,URINE 2+ (NEGATIVE); UROBILINOGEN,URINE NORMAL (NORMAL)
[2017-07-19 16:00] LABS: BASOPHILS # (AUTO) 0.1 X10^3/uL (0.0-0.1); BASOPHILS % (AUTO) 0.7 % (0.2-1.0); EOSINOPHILS # (AUTO) 0.1 x10^3/uL (0.0-0.2); EOSINOPHILS % (AUTO) 0.8 % (0.9-2.9); HEMOGLOBIN 10.8 g/dL (12.0-16.0); LYMPHOCYTES # (AUTO) 1.6 X10^3/uL (1.3-2.9); LYMPHOCYTES % (AUTO) 12.1 % (21.0-51.0); MEAN CORPUSCULAR HEMOGLOBIN 27.4 pg (27.0-34.0); MEAN CORPUSCULAR HGB CONC 31.8 g/dL (33.0-35.0); MEAN CORPUSCULAR VOLUME 86.3 fL (80.0-100.0); MEAN PLATELET VOLUME 7.2 fL (7.4-11.0); MONOCYTES # (AUTO) 0.7 x10^3/uL (0.3-0.8); MONOCYTES % (AUTO) 5.5 % (0.0-13.0); NEUTROPHILS # (AUTO) 10.9 x10^3/uL (2.2-4.8); NEUTROPHILS % (AUTO) 80.9 % (42.0-75.0); PLATELET COUNT 332 X10^3/uL (150.0-450.0); RED BLOOD COUNT 3.94 X10^6/uL (3.5-5.4); RED CELL DISTRIBUTION WIDTH 15.1 % (11.6-16.5); WHITE BLOOD COUNT 13.4 X10^3/uL (3.6-10.0)
[2017-07-19 16:03] LABS: ALANINE AMINOTRANSFERASE 35 Units/L (12-78); ALBUMIN 3.5 g/dL (3.4-5.0); ALKALINE PHOSPHATASE 66 Units/L (46-116); ASPARTATE AMINO TRANSFERASE 16 Units/L (15-37); BLOOD UREA NITROGEN 26 mg/dL (7-18); CALCIUM 8.7 mg/dL (8.5-10.1); CARBON DIOXIDE 29.6 mmol/L (21-32); CHLORIDE 105 mmol/L (98-107); COR NA(FOR HYPERGLY) 143 mmol/L (136-145); CREATININE 1.13 mg/dL (0.55-1.02); SODIUM 143 mmol/L (136-145); eGFR BLACK RACES > 60 (>60); eGFR NON BLACK RACES 51 (>60)
[2017-07-19 16:08] LABS: B-TYPE NATRIURETIC PEPTIDE 14.9 pg/mL (0-79)
[2017-07-19 16:20] LABS: APPEARANCE,URINE HAZY (CLEAR); COLOR,URINE YELLOW (YELLOW); RBC,URINE 0-2 /HPF (NONE SEEN)
[2017-07-19 16:21] LABS: BACTERIA,URINE TRACE /HPF (NEGATIVE); MUCUS,URINE MODERATE /HPF (NEGATIVE); SQUAMOUS EPITHELIAL CELL,UR MODERATE /HPF (NEGATIVE)
== END ==
LOC: LAB 15:23
PROVIDERS: ATTEND Psychiatry & Neurology Neurology
DX: R63.5 Abnormal weight gain (principal); R06.02 Shortness of breath; Z79.899 Other long term (current) drug therapy
CPT/HCPCS: 36415; 71046; 80053; 81001; 83880; 85025

== ENCOUNTER 2017-07-27 08:10 | Day surgery (SDC) | payer OTHER, MEDICAID ==
[2017-07-27] MEDS ORDERED: ANCEF 1 GM IV PREMIX* 1 GM/50 ML BAG IV ONE (08:12)
[2017-07-27] MEDS ORDERED: LR 1000 ML IV 1,000 ML IV ONE (08:12)
[2017-07-27] MEDS ORDERED: XYLOCAINE 1% and EPINEPHRINE 1:100,000 ONE (09:27)
[2017-07-27] MEDS ORDERED: MARCAINE 0.25% INJ ONE (09:28)
[2017-07-27] MEDS ORDERED: FENTANYL INJ 100 mcg ONE (09:43)
[2017-07-27] MEDS ORDERED: NS IRRIGATION 1000 ML 1,000 ML with BACITRACIN VIAL 50,000 UNT IR ONE ×2 (10:00)
[2017-07-27] MEDS ORDERED: BACTROBAN OINT ONE (10:14)
[2017-07-27 11:01] VITALS: BP 197/100
[2017-07-27] MEDS ORDERED: VERSED ONE (14:20)
[2017-07-27] MEDS ORDERED: DIPRIVAN VIAL ONE (14:20)
== END 2017-07-27 11:03 | disposition home or self-care (01) ==
LOC: SURG1 08:10
PROVIDERS: ATTEND Surgery
PROC: 0JB70ZZ Excision of Back Subcutaneous Tissue and Fascia, Open Approach (ICD-10-PCS; principal; 2017-07-27 10:00)
DX: D21.6 Benign neoplasm of connective and other soft tissue of trunk, unspecified (principal)
CPT/HCPCS: A4222; S0020; J0690; J2001; J2250; J3010; J3490; J7120

== ENCOUNTER → 2017-07-30 | Outpatient (CLI) | payer OTHER, MEDICAID ==
[2017-07-27 11:01] VITALS: BP 197/100
[2017-07-30 15:36] LABS: BASOPHILS # (AUTO) 0.1 X10^3/uL (0.0-0.1); BASOPHILS % (AUTO) 0.9 % (0.2-1.0); EOSINOPHILS # (AUTO) 0.3 x10^3/uL (0.0-0.2); EOSINOPHILS % (AUTO) 1.8 % (0.9-2.9); HEMATOCRIT 34.6 % (36.0-47.0); HEMOGLOBIN 11.1 g/dL (12.0-16.0); LYMPHOCYTES % (AUTO) 20.7 % (21.0-51.0); MEAN CORPUSCULAR HEMOGLOBIN 27.1 pg (27.0-34.0); MEAN CORPUSCULAR VOLUME 84.8 fL (80.0-100.0); MEAN PLATELET VOLUME 7.2 fL (7.4-11.0); MONOCYTES # (AUTO) 1.1 x10^3/uL (0.3-0.8); MONOCYTES % (AUTO) 7.6 % (0.0-13.0); NEUTROPHILS # (AUTO) 9.9 x10^3/uL (2.2-4.8); PLATELET COUNT 395 X10^3/uL (150.0-450.0); RED BLOOD COUNT 4.09 X10^6/uL (3.5-5.4); RED CELL DISTRIBUTION WIDTH 15.1 % (11.6-16.5); WHITE BLOOD COUNT 14.4 X10^3/uL (3.6-10.0)
== END ==
LOC: LAB 12:16
PROVIDERS: ATTEND Nurse Practitioner Family
DX: D64.9 Anemia, unspecified (principal); R79.89 Other specified abnormal findings of blood chemistry
CPT/HCPCS: 36415; 82746; 83540; 83550; 85025

== ENCOUNTER → 2017-08-14 | Outpatient (CLI) | payer OTHER, MEDICAID ==
[2017-07-27 11:01] VITALS: BP 197/100
[2017-08-14 15:01] LABS: BASOPHILS # (AUTO) 0.1 X10^3/uL (0.0-0.1); BASOPHILS % (AUTO) 0.9 % (0.2-1.0); EOSINOPHILS # (AUTO) 0.2 x10^3/uL (0.0-0.2); EOSINOPHILS % (AUTO) 1.7 % (0.9-2.9); HEMATOCRIT 33.7 % (36.0-47.0); LYMPHOCYTES # (AUTO) 2.2 X10^3/uL (1.3-2.9); LYMPHOCYTES % (AUTO) 15.4 % (21.0-51.0); MEAN CORPUSCULAR HEMOGLOBIN 27.2 pg (27.0-34.0); MEAN CORPUSCULAR HGB CONC 32.7 g/dL (33.0-35.0); MEAN CORPUSCULAR VOLUME 83.2 fL (80.0-100.0); MEAN PLATELET VOLUME 7.4 fL (7.4-11.0); MONOCYTES # (AUTO) 1.2 x10^3/uL (0.3-0.8); NEUTROPHILS # (AUTO) 10.7 x10^3/uL (2.2-4.8); PLATELET COUNT 382 X10^3/uL (150.0-450.0); RED BLOOD COUNT 4.05 X10^6/uL (3.5-5.4); RED CELL DISTRIBUTION WIDTH 14.5 % (11.6-16.5); WHITE BLOOD COUNT 14.4 X10^3/uL (3.6-10.0)
[2017-08-14 15:17] LABS: CREATININE,URINE 268.44 mg/dL (29-226); TOTAL PROTEIN,URINE 62.7 mg/dl (0-11.9)
[2017-08-14 15:43] LABS: ALBUMIN 3.7 g/dL (3.4-5.0); BLOOD UREA NITROGEN 34 mg/dL (7-18); CALCIUM 8.7 mg/dL (8.5-10.1); CARBON DIOXIDE 28.5 mmol/L (21-32); CHLORIDE 99 mmol/L (98-107); COR NA(FOR HYPERGLY) 140 mmol/L (136-145); PHOSPHORUS 2.6 mg/dL (2.6-4.7); SODIUM 140 mmol/L (136-145); URIC ACID 9.1 mg/dL (2.6-6.0); eGFR BLACK RACES 41 (>60); eGFR NON BLACK RACES 34 (>60)
[2017-08-18 19:51] LABS: KAPPA LIGHT CHAINS 2.05 mg/dL (0.33-1.94); LAMBDA LIGHT CHAIN 1.79 mg/dL (0.57-2.63)
[2017-08-19 08:29] LABS: ANTI-NUCLEAR ANTIBODY TEST None Detected (None Detected)
[2017-08-19 08:33] LABS: KAPPA/LAMBDA RATIO 1.15 (0.26-1.65)
== END ==
LOC: LAB 14:23
PROVIDERS: ATTEND Internal Medicine
DX: N18.3 Chronic kidney disease, stage 3 (moderate) (principal)
CPT/HCPCS: 36415; 80069; 82570; 83883; 84157; 84550; 85025; 86308

== ENCOUNTER 2017-08-17 12:44 | Inpatient (IN) | payer OTHER, MEDICAID ==
[2017-08-17 13:57] LABS: BASOPHILS # (AUTO) 0.1 X10^3/uL (0.0-0.1); BASOPHILS % (AUTO) 0.6 % (0.2-1.0); EOSINOPHILS # (AUTO) 0.3 x10^3/uL (0.0-0.2); EOSINOPHILS % (AUTO) 1.8 % (0.9-2.9); HEMATOCRIT 33.1 % (36.0-47.0); HEMOGLOBIN 10.9 g/dL (12.0-16.0); LYMPHOCYTES # (AUTO) 2.8 X10^3/uL (1.3-2.9); LYMPHOCYTES % (AUTO) 19.6 % (21.0-51.0); MEAN CORPUSCULAR HEMOGLOBIN 27.2 pg (27.0-34.0); MEAN CORPUSCULAR VOLUME 82.6 fL (80.0-100.0); MEAN PLATELET VOLUME 7.4 fL (7.4-11.0); MONOCYTES # (AUTO) 1.3 x10^3/uL (0.3-0.8); MONOCYTES % (AUTO) 8.7 % (0.0-13.0); NEUTROPHILS % (AUTO) 69.3 % (42.0-75.0); PLATELET COUNT 377 X10^3/uL (150.0-450.0); RED CELL DISTRIBUTION WIDTH 14.2 % (11.6-16.5); WHITE BLOOD COUNT 14.5 X10^3/uL (3.6-10.0)
[2017-08-17 14:01] LABS: ALANINE AMINOTRANSFERASE 29 Units/L (12-78); ALBUMIN 3.8 g/dL (3.4-5.0); ALKALINE PHOSPHATASE 70 Units/L (46-116); ASPARTATE AMINO TRANSFERASE 19 Units/L (15-37); BLOOD UREA NITROGEN 60 mg/dL (7-18); CALCIUM 9.1 mg/dL (8.5-10.1); CARBON DIOXIDE 37.8 mmol/L (21-32); CHLORIDE 97 mmol/L (98-107); COR NA(FOR HYPERGLY) 141 mmol/L (136-145); CREATININE 2.21 mg/dL (0.55-1.02); SODIUM 141 mmol/L (136-145); TOTAL PROTEIN 7.7 g/dL (6.4-8.2); eGFR BLACK RACES 28 (>60); eGFR NON BLACK RACES 23 (>60)
[2017-08-17] MEDS ORDERED: NS 500 ML IV 500 ML IV ONE (14:03)
[2017-08-17] MEDS: ALBUMIN HUMAN 25%- 100ML 100 ML IV SCH (14:10)
[2017-08-17] MEDS ORDERED: POTASSIUM CHL 60 MEQ/NS 0.45% 500 ML IV PRN (14:27)
[2017-08-17] MEDS ORDERED: K-LYTE EFFERVESCENT PO PRN (14:27)
[2017-08-17] MEDS ORDERED: POTASSIUM CHLORIDE LIQ 20 MEQ UDC PO PRN (14:27)
[2017-08-17] MEDS ORDERED: MAGNESIUM SULFATE 1 GM/100 mL PREMIX 1 GM/100 ML BAG IV PRN (14:27)
[2017-08-17] MEDS ORDERED: K-RIDER 10 MEQ/NS 100 ML 10 MEQ/100 ML BAG IV PRN (14:27)
[2017-08-17] MEDS ORDERED: ULTRAM PO PRN (14:48)
[2017-08-17] MEDS ORDERED: TYLENOL 325 MG TAB PO PRN (14:48)
--- NOTE | 2017-08-17 15:08 | RAD ---
Examination: Portable AP chest History: CHF, chest pain Comparison reference 07/19/2017 Findings: Continued normal heart size with essentially clear lungs, although the extreme lung bases a re partly obscured by low lung volumes. Left jugular line extends to the right atrium. No evidence fo r pneumonia or pneumothorax. Impression: Postsurgical findings, no acute abnormality demonstrated. Reported By:
[2017-08-17] MEDS: NORCO 5/325 MG TAB PO PRN ×2 (15:26→22:06)
[2017-08-17] MEDS: POTASSIUM CHL 40 MEQ/NS 0.45% 500 ML IV PRN (15:26)
[2017-08-17 15:36] LABS: BILIRUBIN,URINE NEGATIVE (NEGATIVE); BLOOD/HEMOGLOBIN,URINE NEGATIVE (NEGATIVE); GLUCOSE, URINE NEGATIVE (NEGATIVE); KETONES,URINE NEGATIVE (NEGATIVE); LEUKOCYTE ESTERASE ,URINE NEGATIVE (NEGATIVE); NITRITES,URINE NEGATIVE (NEGATIVE); PROTEIN,URINE NEGATIVE (NEGATIVE); UROBILINOGEN,URINE NORMAL (NORMAL)
[2017-08-17 15:46] LABS: APPEARANCE,URINE CLEAR (CLEAR); COLOR,URINE YELLOW (YELLOW)
[2017-08-17 16:13] VITALS: BMI 35.9
[2017-08-17] MEDS: NS 1000 ML 1,000 ML IV SCH (22:26)
[2017-08-17] MEDS ORDERED: XANAX PO ONE (23:18)
[2017-08-17] MEDS: AMBIEN PO PRN (23:41)
[2017-08-18 06:16] LABS: BASOPHILS % (AUTO) 0.4 % (0.2-1.0); EOSINOPHILS # (AUTO) 0.2 x10^3/uL (0.0-0.2); EOSINOPHILS % (AUTO) 1.8 % (0.9-2.9); HEMATOCRIT 29.9 % (36.0-47.0); HEMOGLOBIN 9.8 g/dL (12.0-16.0); LYMPHOCYTES # (AUTO) 2.1 X10^3/uL (1.3-2.9); LYMPHOCYTES % (AUTO) 20.9 % (21.0-51.0); MEAN CORPUSCULAR HEMOGLOBIN 27.1 pg (27.0-34.0); MEAN CORPUSCULAR HGB CONC 32.6 g/dL (33.0-35.0); MEAN CORPUSCULAR VOLUME 83.2 fL (80.0-100.0); MEAN PLATELET VOLUME 7.5 fL (7.4-11.0); MONOCYTES # (AUTO) 0.8 x10^3/uL (0.3-0.8); NEUTROPHILS % (AUTO) 68.9 % (42.0-75.0); PLATELET COUNT 339 X10^3/uL (150.0-450.0); RED CELL DISTRIBUTION WIDTH 14.2 % (11.6-16.5); WHITE BLOOD COUNT 10.2 X10^3/uL (3.6-10.0)
[2017-08-18 06:23] LABS: ALANINE AMINOTRANSFERASE 23 Units/L (12-78); ALBUMIN 3.6 g/dL (3.4-5.0); ALKALINE PHOSPHATASE 57 Units/L (46-116); ASPARTATE AMINO TRANSFERASE 14 Units/L (15-37); BLOOD UREA NITROGEN 58 mg/dL (7-18); CALCIUM 8.6 mg/dL (8.5-10.1); CARBON DIOXIDE 36.7 mmol/L (21-32); CHLORIDE 102 mmol/L (98-107); CREATININE 1.78 mg/dL (0.55-1.02); SODIUM 144 mmol/L (136-145); TOTAL PROTEIN 7.1 g/dL (6.4-8.2); eGFR BLACK RACES 36 (>60); eGFR NON BLACK RACES 30 (>60)
[2017-08-18] MEDS: POTASSIUM CHL 40 MEQ/NS 0.45% 500 ML IV PRN (06:36)
[2017-08-18] MEDS: ALBUMIN HUMAN 25%- 100ML 100 ML IV SCH (09:46)
[2017-08-18] MEDS: NORCO 5/325 MG TAB PO PRN (10:39)
[2017-08-18] MEDS: DUONEB 0.5 MG/3 MG NEB SCH ×3 (13:29→20:51)
[2017-08-18] MEDS ORDERED: PATIENT'S HOME MEDICATION (Oxycodone Hcl/Acetaminophen [Percocet 10-325 Mg Tablet] 1 TAB) PO PRN (13:35)
[2017-08-18] MEDS ORDERED: AMBIEN PO PRN (13:35)
[2017-08-18] MEDS ORDERED: PATIENT'S HOME MEDICATION (Tizanidine Hcl [Zanaflex 4 Mg] 4 MG) PO PRN (13:35)
[2017-08-18] MEDS ORDERED: DILTIAZEM HCL 240 MG PO SCH (13:45)
[2017-08-18] MEDS ORDERED: PATIENT'S HOME MEDICATION (Budesonide-Formoterol 2 PUFF) IN SCH (13:45)
[2017-08-18] MEDS ORDERED: PATIENT'S HOME MEDICATION (Gabapentin [Gabapentin] 1 TAB) PO SCH (13:45)
[2017-08-18] MEDS ORDERED: SYNTHROID 50 mcg TAB PO SCH ×2 (14:00→14:33)
[2017-08-18] MEDS ORDERED: ULTRAM PO SCH (14:00)
[2017-08-18] MEDS ORDERED: SYNTHROID 50 mcg TAB ONE (14:09)
[2017-08-18] MEDS ORDERED: DITROPAN TAB 5 MG PO ONE (14:09)
[2017-08-18] MEDS: NYSTATIN SUSP PO SCH ×3 (14:14→20:07)
[2017-08-18] MEDS: IMDUR PO SCH (14:14)
[2017-08-18] MEDS: CELEXA PO SCH (14:16)
[2017-08-18] MEDS: ZAROXOYLN PO SCH (14:16)
[2017-08-18] MEDS: APRESOLINE TAB 25 MG PO SCH ×2 (14:17→21:21)
[2017-08-18] MEDS: OXYBUTYNIN CHLORIDE ER PO SCH (14:17)
[2017-08-18] MEDS: CYMBALTA PO SCH ×2 (14:18→20:06)
[2017-08-18] MEDS ORDERED: ZANAFLEX PO PRN (14:44)
[2017-08-18] MEDS: FLONASE NASAL SPRAY ENOSTRIL SCH (14:52)
[2017-08-18] MEDS: CARDIZEM CD 240 MG PO SCH (16:00)
[2017-08-18] MEDS: NEURONTIN CAP 400 MG PO SCH ×2 (16:39→20:05)
[2017-08-18] MEDS: PERCOCET TAB 5/325 MG PO PRN (18:17)
[2017-08-18] MEDS: LIPITOR TAB 10 MG PO SCH (20:05)
[2017-08-18] MEDS: LOPRESSOR TAB 50 MG PO SCH (20:05)
[2017-08-18] MEDS: RANEXA PO SCH (20:06)
[2017-08-18] MEDS: PROTONIX TAB 40 MG PO SCH (20:06)
[2017-08-18] MEDS: GLUCOPHAGE XR PO SCH (20:08)
[2017-08-18] MEDS: PULMICORT NEB TX 0.5 MG NEB SCH (20:51)
[2017-08-18] MEDS ORDERED: PATIENT'S HOME MEDICATION (Metformin Hcl [Metformin Hcl Er] 500 MG) PO SCH (21:00)
[2017-08-18] MEDS ORDERED: METAXALONE 400 MG PO SCH (21:00)
[2017-08-18] MEDS ORDERED: MILK OF MAGNESIA PO PRN (22:28)
[2017-08-18] MEDS: COLACE CAP 100 MG PO PRN (22:37)
[2017-08-18] MEDS: AMBIEN PO PRN (22:37)
[2017-08-18] MEDS: XANAX PO PRN (22:37)
[2017-08-19] MEDS: NS 1000 ML 1,000 ML IV SCH (03:38)
[2017-08-19] MEDS: PERCOCET TAB 5/325 MG PO PRN ×3 (03:55→22:49)
[2017-08-19] MEDS: APRESOLINE TAB 25 MG PO SCH ×3 (05:09→22:49)
[2017-08-19] MEDS: DUONEB 0.5 MG/3 MG NEB SCH ×2 (05:20→13:49)
[2017-08-19 05:38] LABS: ALANINE AMINOTRANSFERASE 25 Units/L (12-78); ALBUMIN 3.9 g/dL (3.4-5.0); ALKALINE PHOSPHATASE 53 Units/L (46-116); ASPARTATE AMINO TRANSFERASE 16 Units/L (15-37); BLOOD UREA NITROGEN 30 mg/dL (7-18); CALCIUM 8.7 mg/dL (8.5-10.1); CHLORIDE 102 mmol/L (98-107); COR NA(FOR HYPERGLY) 147 mmol/L (136-145); CREATININE 1.26 mg/dL (0.55-1.02); SODIUM 146 mmol/L (136-145); TOTAL PROTEIN 7.3 g/dL (6.4-8.2); eGFR BLACK RACES 54 (>60); eGFR NON BLACK RACES 45 (>60)
[2017-08-19 05:39] LABS: BASOPHILS # (AUTO) 0.1 X10^3/uL (0.0-0.1); EOSINOPHILS # (AUTO) 0.2 x10^3/uL (0.0-0.2); HEMATOCRIT 31.1 % (36.0-47.0); HEMOGLOBIN 9.9 g/dL (12.0-16.0); LYMPHOCYTES # (AUTO) 2.3 X10^3/uL (1.3-2.9); LYMPHOCYTES % (AUTO) 21.9 % (21.0-51.0); MEAN CORPUSCULAR HEMOGLOBIN 26.7 pg (27.0-34.0); MEAN CORPUSCULAR HGB CONC 31.8 g/dL (33.0-35.0); MEAN CORPUSCULAR VOLUME 83.9 fL (80.0-100.0); MEAN PLATELET VOLUME 8.1 fL (7.4-11.0); MONOCYTES # (AUTO) 1.2 x10^3/uL (0.3-0.8); NEUTROPHILS # (AUTO) 6.8 x10^3/uL (2.2-4.8); NEUTROPHILS % (AUTO) 64.1 % (42.0-75.0); PLATELET COUNT 344 X10^3/uL (150.0-450.0); RED BLOOD COUNT 3.71 X10^6/uL (3.5-5.4); RED CELL DISTRIBUTION WIDTH 14.3 % (11.6-16.5); WHITE BLOOD COUNT 10.6 X10^3/uL (3.6-10.0)
--- NOTE | 2017-08-19 08:09 | RAD ---
Findings: Examination: AP chest History: SOB Comparison reference 08/17/2017 Findings: Continued normal heart size. The lungs are essentially clear. There is no evidence for cons olidation, pulmonary edema or pneumothorax. The left jugular injection port is stable, terminating in the right atrium. Impression: No change; no acute findings. Reported By:
[2017-08-19] MEDS: ALBUMIN HUMAN 25%- 100ML 100 ML IV SCH (08:43)
[2017-08-19] MEDS: SYNTHROID 25 mcg TAB PO SCH (08:43)
[2017-08-19] MEDS: MICRO K EXTEN CAP 10 MEQ PO SCH (08:44)
[2017-08-19] MEDS: CELEXA PO SCH (08:44)
[2017-08-19] MEDS: CARDIZEM CD 240 MG PO SCH (08:44)
[2017-08-19] MEDS: CYMBALTA PO SCH ×2 (08:44→20:22)
[2017-08-19] MEDS: NEURONTIN CAP 400 MG PO SCH ×4 (08:44→20:21)
[2017-08-19] MEDS: FLONASE NASAL SPRAY ENOSTRIL SCH (08:44)
[2017-08-19] MEDS: IMDUR PO SCH (08:44)
[2017-08-19] MEDS: PROTONIX TAB 40 MG PO SCH ×2 (08:45→20:22)
[2017-08-19] MEDS: RANEXA PO SCH ×2 (08:45→20:21)
[2017-08-19] MEDS: NYSTATIN SUSP PO SCH ×4 (08:45→20:21)
[2017-08-19] MEDS: ZAROXOYLN PO SCH (08:45)
[2017-08-19] MEDS: OXYBUTYNIN CHLORIDE ER PO SCH (08:45)
[2017-08-19] MEDS ORDERED: PATIENT'S HOME MEDICATION (Potassium Chloride [Klor-Con 10 (10 Meq)] 10 MEQ) PO SCH (09:00)
[2017-08-19] MEDS: PULMICORT NEB TX 0.5 MG NEB SCH (09:04)
--- NOTE | 2017-08-19 11:47 | DR.UPDATE ---
H&P Update History and Physical Update: WAS SEEN IN THE OFFICE ON 08/17/2016. A H&P WAS COMPELTED PRIOR TO ADMISSION. PATIENT HAS BEEN SEEN AND EXAMINED WITH NO CHANGES NOTED TO H&P. Changes noted: NO Yes with the following:
--- NOTE | 2017-08-19 11:56 | PCM.PROG ---
Progress Note - Progress Note for Day of Date: 08/18/17 - Subjective Subjective: IS BEING TREATED FOR SHORTNESS OF BREATH, LIKELY RELATED TO AN EXACERBATION OF COPD. TODAY, SHE IS ALERT AND ORIENTED, LYING IN BED ON MORNING ROUNDS. SHE CONTINUES WITH COMPLAINTS OF SHORTNESS OF BREATH, NON- PRODUCTIVE COUGH, AND AN OVERACTIVE BLADDER. HER VITALS ARE STABLE TODAY. WBC 10.2, HGB 9.8, HCT 29.9, POTASSIUM 3.3, BUN 58, CREATININE 1.78, GLUCOSE 110, AST 14. OTHERWISE, SHE IS HEMODYNAMICALLY STABLE. CHEST XRAY OBTAINED ON ADMISSION IS STABLE. TODAY, WE WILL START OXYBUTYNIN AND ORDER NEW TREATMENTS TID. OTHERWISE, WE WILL CONTINUE WITH PLAN OF CARE AND IV HYDRATION. WE WILL FOLLOW UP WITH AM LABS AND CONTINUE TO MONITOR PATIENT. - Past Medical Family Social History Past Med/Fam/Surg Hx: No changes since H&P Allergies: Allergies morphine Allergy (Verified 07/02/17 14:32) rofecoxib [From Vioxx] Allergy (Verified 07/02/17 14:32) - Review of Systems ROS: No change since H&P - Vital Signs and I&O's Vital Signs: Temperature 98.4 F Pulse Rate [Left Brachial] 74 Pulse Rate 87 Respiratory Rate 20 Blood Pressure [Left Calf] 190/91 Blood Pressure [Left Arm] 121/58 Blood Pressure [Right Arm] 183/88 Blood Pressure 197/100 O2 Sat by Pulse Oximetry 98 Intake and Output: Intake & Output 08/16/17 08/17/17 08/18/17 08/19/17 11:59 11:59 11:59 11:59 Intake Total 2380 1300 Output Total 900 2950 Balance 1480 -1650 - Physical Exam Oriented: Normal Eyes: Normal Ear: Normal Nose: Normal Throat: Normal Respiratory: Generalized, Diminished Cardiovascular: Normal, Edema (BILATERAL LOWER EXTREMITY 1+ PITTING EDEMA. ) : Normal Auscultation: Bowel Sounds: Normal Palpation: Normal Tenderness: Normal Skin: Normal Musculoskeletal: Normal Psychiatric: Normal Mood Description: Calm Affect: Normal Speech Pattern: Clear, Appropriate - Laboratory and Diagnostics Result Diagrams: 08/19/17 04:16 08/19/17 04:16 Labs: Laboratory WBC 10.6 X10^3/uL (3.6-10.0) H 08/19/17 04:16 RBC 3.71 X10^6/uL (3.5-5.4) 08/19/17 04:16 Hgb 9.9 g/dL (12.0-16.0) L 08/19/17 04:16 Hct 31.1 % (36.0-47.0) L 08/19/17 04:16 MCV 83.9 fL (80.0-100.0) 08/19/17 04:16 MCH 26.7 pg (27.0-34.0) L 08/19/17 04:16 MCHC 31.8 g/dL (33.0-35.0) L 08/19/17 04:16 RDW 14.3 % (11.6-16.5) 08/19/17 04:16 Plt Count 344 X10^3/uL (150.0-450.0) 08/19/17 04:16 MPV 8.1 fL (7.4-11.0) 08/19/17 04:16 Neut % (Auto) 64.1 % (42.0-75.0) 08/19/17 04:16 Lymph % (Auto) 21.9 % (21.0-51.0) 08/19/17 04:16 [place] % (Auto) 11.0 % (0.0-13.0) 08/19/17 04:16 Eos % (Auto) 2.0 % (0.9-2.9) 08/19/17 04:16 Baso % (Auto) 1.0 % (0.2-1.0) 08/19/17 04:16 Neut # (Auto) 6.8 x10^3/uL (2.2-4.8) H 08/19/17 04:16 Lymph # (Auto) 2.3 X10^3/uL (1.3-2.9) 08/19/17 04:16 [place] # (Auto) 1.2 x10^3/uL (0.3-0.8) H 08/19/17 04:16 Eos # (Auto) 0.2 x10^3/uL (0.0-0.2) 08/19/17 04:16 Baso # (Auto) 0.1 X10^3/uL (0.0-0.1) 08/19/17 04:16 Absolute Nucleated RBC 0.1 /100WBC 08/19/17 04:16 Sodium 146 mmol/L (136-145) H 08/19/17 04:16 Corrected Sodium 147 mmol/L (136-145) H 08/19/17 04:16 Potassium 3.8 mmol/L (3.5-5.1) 08/19/17 04:16 Chloride 102 mmol/L (98-107) 08/19/17 04:16 Carbon Dioxide 33.0 mmol/L (21-32) H 08/19/17 04:16 BUN 30 mg/dL (7-18) H 08/19/17 04:16 Creatinine 1.26 mg/dL (0.55-1.02) H 08/19/17 04:16 Est GFR (MDRD) Af Amer 54 (>60) L 08/19/17 04:16 Est GFR (MDRD) Non-Af 45 (>60) L 08/19/17 04:16 Glucose 136 mg/dL (65-99) H 08/19/17 04:16 POC Glucose (mg/dL) 108 mg/dL (65-99) H 08/19/17 11:40 Calcium 8.7 mg/dL (8.5-10.1) 08/19/17 04:16 Corrected Calcium TNP 08/19/17 04:16 Magnesium 2.4 mg/dL (1.7-2.9) 08/17/17 13:31 Total Bilirubin 0.20 mg/dL (0.2-1.0) 08/19/17 04:16 AST 16 Units/L (15-37) 08/19/17 04:16 ALT 25 Units/L (12-78) 08/19/17 04:16 Alkaline Phosphatase 53 Units/L (46-116) 08/19/17 04:16 B-Natriuretic Peptide 15.4 pg/mL (0-79) 08/17/17 13:31 Total Protein 7.3 g/dL (6.4-8.2) 08/19/17 04:16 Albumin 3.9 g/dL (3.4-5.0) 08/19/17 04:16 Globulin 3.4 g/dL (2.5-4.5) 08/19/17 04:16 Albumin/Globulin Ratio 1.1 Ratio (1.1-2.1) 08/19/17 04:16 Specimen Type Clean catch urine 08/17/17 13:18 Urine Color Yellow (YELLOW) 08/17/17 13:18 Urine Appearance Clear (CLEAR) 08/17/17 13:18 Urine pH 6.0 (5.0 - 8.0) 08/17/17 13:18 Ur Specific [place] 1.005 (1.000-1.030) 08/17/17 13:18 Urine Protein Negative (NEGATIVE) 08/17/17 13:18 Urine Glucose (UA) Negative (NEGATIVE) 08/17/17 13:18 Urine Ketones Negative (NEGATIVE) 08/17/17 13:18 Urine Occult Blood Negative (NEGATIVE) 08/17/17 13:18 Urine Nitrite Negative (NEGATIVE) 08/17/17 13:18 Urine Bilirubin Negative (NEGATIVE) 08/17/17 13:18 Urine Urobilinogen Normal (NORMAL) 08/17/17 13:18 Ur Leukocyte Esterase Negative (NEGATIVE) 08/17/17 13:18 - Plan (1) COPD exacerbation Status: Acute Plan: SUPPLEMENTAL OXYGEN, RESPIRATORY TREATMENTS, CONTINUE APOLINAR MEDS, CONTINUE TO MONITOR (2) Dehydration Status: Acute Plan: NORMAL SALINE AT 75ML/HR, ALBUMIN 25% IV DAILY, CONTINUE TO MONITOR
--- NOTE | 2017-08-19 15:22 | PCM.PROG ---
Progress Note - Progress Note for Day of Date: 08/19/17 - Subjective Subjective: IS BEING TREATED FOR SHORTNESS OF BREATH, LIKELY RELATED TO AN EXACERBATION OF COPD. TODAY, SHE IS ALERT AND ORIENTED, LYING IN BED ON MORNING ROUNDS. SHE CONTINUES WITH COMPLAINTS OF SHORTNESS OF BREATH AND A NON- PRODUCTIVE COUGH. HER VITALS ARE STABLE TODAY. WBC 10.6, HGB 9.9, HCT 31.1, SODIUM 146, CARBON DIOXIDE 33.0, BUN 30, CREATININE 1.26, GLUCOSE 136. OTHERWISE , SHE IS HEMODYNAMICALLY STABLE. CHEST XRAY IS STABLE. TODAY, WE WILL CONTINUE WITH IV FLUIDS AND RESPIRATORY TREATMENTS. OTHERWISE, WE WILL FOLLOW UP WITH AM LABS AND CONTINUE TO MONITOR PATIENT. - Past Medical Family Social History Past Med/Fam/Surg Hx: No changes since H&P Allergies: Allergies morphine Allergy (Verified 07/02/17 14:32) rofecoxib [From Vioxx] Allergy (Verified 07/02/17 14:32) - Review of Systems ROS: No change since H&P - Vital Signs and I&O's Vital Signs: Temperature 98.4 F Pulse Rate [Left Brachial] 74 Pulse Rate 62 Respiratory Rate 20 Blood Pressure [Left Calf] 190/91 Blood Pressure [Left Arm] 121/58 Blood Pressure [Right Arm] 183/88 Blood Pressure 197/100 O2 Sat by Pulse Oximetry 99 Intake and Output: Intake & Output 08/17/17 08/18/17 08/19/17 08/20/17 11:59 11:59 11:59 11:59 Intake Total 2380 1300 350 Output Total 900 2950 Balance 1480 -1650 350 - Physical Exam Oriented: Normal Eyes: Normal Ear: Normal Nose: Normal Throat: Normal Respiratory: Generalized, Diminished Cardiovascular: Normal, Edema (BILATERAL LOWER EXTREMITY 1+ PITTING EDEMA. ) : Normal Auscultation: Bowel Sounds: Normal Palpation: Normal Tenderness: Normal Skin: Normal Musculoskeletal: Normal Psychiatric: Normal Mood Description: Calm Affect: Normal Speech Pattern: Clear, Appropriate - Laboratory and Diagnostics Result Diagrams: 08/19/17 04:16 08/19/17 04:16 Labs: Laboratory WBC 10.6 X10^3/uL (3.6-10.0) H 08/19/17 04:16 RBC 3.71 X10^6/uL (3.5-5.4) 08/19/17 04:16 Hgb 9.9 g/dL (12.0-16.0) L 08/19/17 04:16 Hct 31.1 % (36.0-47.0) L 08/19/17 04:16 MCV 83.9 fL (80.0-100.0) 08/19/17 04:16 MCH 26.7 pg (27.0-34.0) L 08/19/17 04:16 MCHC 31.8 g/dL (33.0-35.0) L 08/19/17 04:16 RDW 14.3 % (11.6-16.5) 08/19/17 04:16 Plt Count 344 X10^3/uL (150.0-450.0) 08/19/17 04:16 MPV 8.1 fL (7.4-11.0) 08/19/17 04:16 Neut % (Auto) 64.1 % (42.0-75.0) 08/19/17 04:16 Lymph % (Auto) 21.9 % (21.0-51.0) 08/19/17 04:16 Rush % (Auto) 11.0 % (0.0-13.0) 08/19/17 04:16 Eos % (Auto) 2.0 % (0.9-2.9) 08/19/17 04:16 Baso % (Auto) 1.0 % (0.2-1.0) 08/19/17 04:16 Neut # (Auto) 6.8 x10^3/uL (2.2-4.8) H 08/19/17 04:16 Lymph # (Auto) 2.3 X10^3/uL (1.3-2.9) 08/19/17 04:16 [place] # (Auto) 1.2 x10^3/uL (0.3-0.8) H 08/19/17 04:16 Eos # (Auto) 0.2 x10^3/uL (0.0-0.2) 08/19/17 04:16 Baso # (Auto) 0.1 X10^3/uL (0.0-0.1) 08/19/17 04:16 Absolute Nucleated RBC 0.1 /100WBC 08/19/17 04:16 Sodium 146 mmol/L (136-145) H 08/19/17 04:16 Corrected Sodium 147 mmol/L (136-145) H 08/19/17 04:16 Potassium 3.8 mmol/L (3.5-5.1) 08/19/17 04:16 Chloride 102 mmol/L (98-107) 08/19/17 04:16 Carbon Dioxide 33.0 mmol/L (21-32) H 08/19/17 04:16 BUN 30 mg/dL (7-18) H 08/19/17 04:16 Creatinine 1.26 mg/dL (0.55-1.02) H 08/19/17 04:16 Est GFR (MDRD) Af Amer 54 (>60) L 08/19/17 04:16 Est GFR (MDRD) Non-Af 45 (>60) L 08/19/17 04:16 Glucose 136 mg/dL (65-99) H 08/19/17 04:16 POC Glucose (mg/dL) 108 mg/dL (65-99) H 08/19/17 11:40 Calcium 8.7 mg/dL (8.5-10.1) 08/19/17 04:16 Corrected Calcium TNP 08/19/17 04:16 Magnesium 2.4 mg/dL (1.7-2.9) 08/17/17 13:31 Total Bilirubin 0.20 mg/dL (0.2-1.0) 08/19/17 04:16 AST 16 Units/L (15-37) 08/19/17 04:16 ALT 25 Units/L (12-78) 08/19/17 04:16 Alkaline Phosphatase 53 Units/L (46-116) 08/19/17 04:16 B-Natriuretic Peptide 15.4 pg/mL (0-79) 08/17/17 13:31 Total Protein 7.3 g/dL (6.4-8.2) 08/19/17 04:16 Albumin 3.9 g/dL (3.4-5.0) 08/19/17 04:16 Globulin 3.4 g/dL (2.5-4.5) 08/19/17 04:16 Albumin/Globulin Ratio 1.1 Ratio (1.1-2.1) 08/19/17 04:16 Specimen Type Clean catch urine 08/17/17 13:18 Urine Color Yellow (YELLOW) 08/17/17 13:18 Urine Appearance Clear (CLEAR) 08/17/17 13:18 Urine pH 6.0 (5.0 - 8.0) 08/17/17 13:18 Ur Specific [place] 1.005 (1.000-1.030) 08/17/17 13:18 Urine Protein Negative (NEGATIVE) 08/17/17 13:18 Urine Glucose (UA) Negative (NEGATIVE) 08/17/17 13:18 Urine Ketones Negative (NEGATIVE) 08/17/17 13:18 Urine Occult Blood Negative (NEGATIVE) 08/17/17 13:18 Urine Nitrite Negative (NEGATIVE) 08/17/17 13:18 Urine Bilirubin Negative (NEGATIVE) 08/17/17 13:18 Urine Urobilinogen Normal (NORMAL) 08/17/17 13:18 Ur Leukocyte Esterase Negative (NEGATIVE) 08/17/17 13:18 - Plan (1) COPD exacerbation Status: Acute Plan: SUPPLEMENTAL OXYGEN, RESPIRATORY TREATMENTS, CONTINUE APOLINAR MEDS, CONTINUE TO MONITOR (2) Dehydration Status: Acute Plan: NORMAL SALINE AT 75ML/HR, ALBUMIN 25% IV DAILY, CONTINUE TO MONITOR
[2017-08-19] MEDS: GLUCOPHAGE XR PO SCH (20:21)
[2017-08-19] MEDS: LOPRESSOR TAB 50 MG PO SCH (20:21)
[2017-08-19] MEDS: COLACE CAP 100 MG PO PRN (20:21)
[2017-08-19] MEDS: LIPITOR TAB 10 MG PO SCH (20:22)
[2017-08-19] MEDS: XANAX PO PRN (22:48)
[2017-08-19] MEDS: AMBIEN PO PRN (22:49)
[2017-08-20] MEDS: PULMICORT NEB TX 0.5 MG NEB SCH ×3 (00:53→20:50)
[2017-08-20] MEDS: DUONEB 0.5 MG/3 MG NEB SCH ×4 (00:53→20:50)
[2017-08-20] MEDS: APRESOLINE TAB 25 MG PO SCH ×3 (05:11→22:00)
[2017-08-20] MEDS: NS 1000 ML 1,000 ML IV SCH ×2 (05:43→20:39)
--- NOTE | 2017-08-20 06:09 | RAD ---
HISTORY: Shortness of breath Study: Chest AP portable Comparison: 08/19/2017, 08/17/2017 Findings: There is a port present on the left. Its tip is in the right atrium. The heart remains enlarged. No c ongestive heart failure is noted. No acute alveolar infiltrates or pleural effusions are identified. The bony thorax is unremarkable with the exception of a right shoulder arthroplasty. IMPRESSION: Mild cardiomegaly without congestive heart failure Lungs clear Reported By:
[2017-08-20] MEDS: SYNTHROID 25 mcg TAB PO SCH (06:19)
[2017-08-20 06:51] LABS: BASOPHILS % (AUTO) 0.4 % (0.2-1.0); EOSINOPHILS # (AUTO) 0.2 x10^3/uL (0.0-0.2); HEMATOCRIT 29.2 % (36.0-47.0); HEMOGLOBIN 9.5 g/dL (12.0-16.0); LYMPHOCYTES # (AUTO) 2.5 X10^3/uL (1.3-2.9); LYMPHOCYTES % (AUTO) 24.2 % (21.0-51.0); MEAN CORPUSCULAR HEMOGLOBIN 27.1 pg (27.0-34.0); MEAN CORPUSCULAR HGB CONC 32.5 g/dL (33.0-35.0); MEAN CORPUSCULAR VOLUME 83.5 fL (80.0-100.0); MEAN PLATELET VOLUME 7.4 fL (7.4-11.0); MONOCYTES # (AUTO) 1.1 x10^3/uL (0.3-0.8); MONOCYTES % (AUTO) 10.8 % (0.0-13.0); NEUTROPHILS # (AUTO) 6.5 x10^3/uL (2.2-4.8); NEUTROPHILS % (AUTO) 62.6 % (42.0-75.0); PLATELET COUNT 337 X10^3/uL (150.0-450.0); RED CELL DISTRIBUTION WIDTH 14.5 % (11.6-16.5); WHITE BLOOD COUNT 10.4 X10^3/uL (3.6-10.0)
[2017-08-20 07:07] LABS: ALANINE AMINOTRANSFERASE 22 Units/L (12-78); ALBUMIN 3.7 g/dL (3.4-5.0); ALKALINE PHOSPHATASE 46 Units/L (46-116); ASPARTATE AMINO TRANSFERASE 14 Units/L (15-37); BLOOD UREA NITROGEN 18 mg/dL (7-18); CALCIUM 8.3 mg/dL (8.5-10.1); CARBON DIOXIDE 32.7 mmol/L (21-32); CHLORIDE 105 mmol/L (98-107); CREATININE 0.94 mg/dL (0.55-1.02); SODIUM 144 mmol/L (136-145); TOTAL PROTEIN 6.8 g/dL (6.4-8.2); eGFR BLACK RACES > 60 (>60); eGFR NON BLACK RACES > 60 (>60)
[2017-08-20] MEDS: ALBUMIN HUMAN 25%- 100ML 100 ML IV SCH (08:49)
[2017-08-20] MEDS: FLONASE NASAL SPRAY ENOSTRIL SCH (08:50)
[2017-08-20] MEDS: CYMBALTA PO SCH ×2 (08:50→20:36)
[2017-08-20] MEDS: CELEXA PO SCH (08:50)
[2017-08-20] MEDS: CARDIZEM CD 240 MG PO SCH (08:50)
[2017-08-20] MEDS: ZAROXOYLN PO SCH (08:51)
[2017-08-20] MEDS: IMDUR PO SCH (08:51)
[2017-08-20] MEDS: OXYBUTYNIN CHLORIDE ER PO SCH (08:51)
[2017-08-20] MEDS: MICRO K EXTEN CAP 10 MEQ PO SCH (08:51)
[2017-08-20] MEDS: NYSTATIN SUSP PO SCH ×4 (08:52→20:40)
[2017-08-20] MEDS: RANEXA PO SCH ×2 (08:52→20:35)
[2017-08-20] MEDS: NEURONTIN CAP 400 MG PO SCH ×4 (08:52→20:37)
[2017-08-20] MEDS: PROTONIX TAB 40 MG PO SCH ×2 (08:52→20:36)
[2017-08-20] MEDS: PERCOCET TAB 5/325 MG PO PRN ×2 (12:17→20:42)
[2017-08-20] MEDS: XANAX PO PRN ×2 (12:18→23:18)
[2017-08-20] MEDS: GLUCOPHAGE XR PO SCH (20:36)
[2017-08-20] MEDS: LIPITOR TAB 10 MG PO SCH (20:37)
[2017-08-20] MEDS: LOPRESSOR TAB 50 MG PO SCH (20:38)
[2017-08-20] MEDS: AMBIEN PO PRN (23:18)
[2017-08-21] MEDS: APRESOLINE TAB 25 MG PO SCH (05:54)
[2017-08-21] MEDS: SYNTHROID 25 mcg TAB PO SCH (06:05)
[2017-08-21] MEDS: DUONEB 0.5 MG/3 MG NEB SCH (06:35)
[2017-08-21 07:09] LABS: BASOPHILS # (AUTO) 0.1 X10^3/uL (0.0-0.1); BASOPHILS % (AUTO) 0.9 % (0.2-1.0); EOSINOPHILS # (AUTO) 0.2 x10^3/uL (0.0-0.2); EOSINOPHILS % (AUTO) 1.7 % (0.9-2.9); HEMATOCRIT 30.1 % (36.0-47.0); HEMOGLOBIN 9.8 g/dL (12.0-16.0); LYMPHOCYTES # (AUTO) 2.5 X10^3/uL (1.3-2.9); LYMPHOCYTES % (AUTO) 24.3 % (21.0-51.0); MEAN CORPUSCULAR HEMOGLOBIN 27.2 pg (27.0-34.0); MEAN CORPUSCULAR HGB CONC 32.6 g/dL (33.0-35.0); MEAN CORPUSCULAR VOLUME 83.2 fL (80.0-100.0); MEAN PLATELET VOLUME 7.5 fL (7.4-11.0); MONOCYTES % (AUTO) 10.1 % (0.0-13.0); NEUTROPHILS # (AUTO) 6.4 x10^3/uL (2.2-4.8); PLATELET COUNT 312 X10^3/uL (150.0-450.0); RED BLOOD COUNT 3.63 X10^6/uL (3.5-5.4); RED CELL DISTRIBUTION WIDTH 14.3 % (11.6-16.5); WHITE BLOOD COUNT 10.1 X10^3/uL (3.6-10.0)
--- NOTE | 2017-08-21 07:19 | RAD ---
HISTORY: Shortness of breath Study: Chest AP portable Comparison: 08/20/2017 Findings: There is a port present on the left. Its tip is in the right atrium. The heart is enlarged. No conges tive heart failure is noted. No alveolar infiltrates or pleural effusions are identified. The bony th orax is unremarkable with the exception of a right shoulder arthroplasty. Hyperinflation is present. IMPRESSION: Moderate cardiomegaly without congestive heart failure Lungs hyperinflated but clear Reported By:
[2017-08-21 07:27] LABS: ALANINE AMINOTRANSFERASE 21 Units/L (12-78); ALBUMIN 3.9 g/dL (3.4-5.0); ALKALINE PHOSPHATASE 47 Units/L (46-116); ASPARTATE AMINO TRANSFERASE 12 Units/L (15-37); BLOOD UREA NITROGEN 14 mg/dL (7-18); CALCIUM 8.4 mg/dL (8.5-10.1); CARBON DIOXIDE 29.8 mmol/L (21-32); CHLORIDE 104 mmol/L (98-107); SODIUM 142 mmol/L (136-145); eGFR BLACK RACES > 60 (>60); eGFR NON BLACK RACES 58 (>60)
[2017-08-21] MEDS: PULMICORT NEB TX 0.5 MG NEB SCH (09:13)
[2017-08-21] MEDS: PROTONIX TAB 40 MG PO SCH (09:25)
[2017-08-21] MEDS: OXYBUTYNIN CHLORIDE ER PO SCH (09:25)
[2017-08-21] MEDS: CELEXA PO SCH (09:25)
[2017-08-21] MEDS: RANEXA PO SCH (09:25)
[2017-08-21] MEDS: CARDIZEM CD 240 MG PO SCH (09:26)
[2017-08-21] MEDS: IMDUR PO SCH (09:26)
[2017-08-21] MEDS: NYSTATIN SUSP PO SCH (09:26)
[2017-08-21] MEDS: MICRO K EXTEN CAP 10 MEQ PO SCH (09:26)
[2017-08-21] MEDS: ZAROXOYLN PO SCH (09:26)
[2017-08-21] MEDS: NEURONTIN CAP 400 MG PO SCH (09:26)
[2017-08-21] MEDS: ALBUMIN HUMAN 25%- 100ML 100 ML IV SCH (09:27)
[2017-08-21] MEDS: FLONASE NASAL SPRAY ENOSTRIL SCH (09:28)
[2017-08-21] MEDS: CYMBALTA PO SCH (09:29)
--- NOTE | 2017-08-21 11:07 | PCM.PROG ---
Progress Note - Progress Note for Day of Date: 08/21/17 - Subjective Subjective: IS BEING TREATED FOR SHORTNESS OF BREATH RELATED TO A COPD EXACERBATION. TODAY, SHE IS ALERT AND ORIENTED, LYING IN BED ON MORNING ROUNDS. SHE CONTINUES WITH COMPLAINTS OF SHORTNESS OF BREATH AND A NON-PRODUCTIVE COUGH. HER VITALS TODAY ARE 98.3-71-20-95%-140/54. ABNORMAL LAB VALUES INCLUDE THE FOLLOWING: WBC 10.4, HGB 9.5, HCT 29.2, CARBON DIOXIDE 32.7, GLUCOSE 104, CALCIUM 8.3, AST 14. OTHERWISE, SHE IS HEMODYNAMICALLY STABLE. TODAYS CHEST XRAY IS STABLE. TODAY, WE WILL CONTINUE WITH IV FLUIDS AND RESPIRATORY TREATMENTS. OTHERWISE, WE WILL FOLLOW UP WITH AM LABS AND CONTINUE TO MONITOR PATIENT. - Past Medical Family Social History Past Med/Fam/Surg Hx: No changes since H&P Allergies: Allergies morphine Allergy (Verified 07/02/17 14:32) rofecoxib [From Vioxx] Allergy (Verified 07/02/17 14:32) - Review of Systems ROS: No change since H&P - Vital Signs and I&O's Vital Signs: Temperature 98.6 F Pulse Rate [Left Brachial] 62 Pulse Rate 68 Respiratory Rate 20 Blood Pressure [Left Calf] 138/68 Blood Pressure [Left Arm] 135/68 Blood Pressure [Right Arm] 183/88 Blood Pressure 197/100 O2 Sat by Pulse Oximetry 98 Intake and Output: Intake & Output 08/18/17 08/19/17 08/20/17 08/21/17 11:59 11:59 11:59 11:59 Intake Total 2380 1300 1916 2240 Output Total 900 2950 1600 600 Balance 1480 -1884 828 [id number] - Physical Exam Oriented: Normal Eyes: Normal Ear: Normal Nose: Normal Throat: Normal Respiratory: Generalized, Diminished Cardiovascular: Normal, Edema (BILATERAL LOWER EXTREMITY 1+ PITTING EDEMA. ) : Normal Auscultation: Bowel Sounds: Normal Palpation: Normal Tenderness: Normal Skin: Normal Musculoskeletal: Normal Psychiatric: Normal Mood Description: Calm Affect: Normal Speech Pattern: Clear, Appropriate - Laboratory and Diagnostics Result Diagrams: 08/21/17 06:41 08/21/17 06:41 Labs: Laboratory WBC 10.1 X10^3/uL (3.6-10.0) H 08/21/17 06:41 RBC 3.63 X10^6/uL (3.5-5.4) 08/21/17 06:41 Hgb 9.8 g/dL (12.0-16.0) L 08/21/17 06:41 Hct 30.1 % (36.0-47.0) L 08/21/17 06:41 MCV 83.2 fL (80.0-100.0) 08/21/17 06:41 MCH 27.2 pg (27.0-34.0) 08/21/17 06:41 MCHC 32.6 g/dL (33.0-35.0) L 08/21/17 06:41 RDW 14.3 % (11.6-16.5) 08/21/17 06:41 Plt Count 312 X10^3/uL (150.0-450.0) 08/21/17 06:41 MPV 7.5 fL (7.4-11.0) 08/21/17 06:41 Neut % (Auto) 63.0 % (42.0-75.0) 08/21/17 06:41 Lymph % (Auto) 24.3 % (21.0-51.0) 08/21/17 06:41 Rush % (Auto) 10.1 % (0.0-13.0) 08/21/17 06:41 Eos % (Auto) 1.7 % (0.9-2.9) 08/21/17 06:41 Baso % (Auto) 0.9 % (0.2-1.0) 08/21/17 06:41 Neut # (Auto) 6.4 x10^3/uL (2.2-4.8) H 08/21/17 06:41 Lymph # (Auto) 2.5 X10^3/uL (1.3-2.9) 08/21/17 06:41 Rush # (Auto) 1.0 x10^3/uL (0.3-0.8) H 08/21/17 06:41 Eos # (Auto) 0.2 x10^3/uL (0.0-0.2) 08/21/17 06:41 Baso # (Auto) 0.1 X10^3/uL (0.0-0.1) 08/21/17 06:41 Absolute Nucleated RBC 0.0 /100WBC 08/21/17 06:41 Sodium 142 mmol/L (136-145) 08/21/17 06:41 Corrected Sodium TNP 08/21/17 06:41 Potassium 4.1 mmol/L (3.5-5.1) 08/21/17 06:41 Chloride 104 mmol/L (98-107) 08/21/17 06:41 Carbon Dioxide 29.8 mmol/L (21-32) 08/21/17 06:41 BUN 14 mg/dL (7-18) 08/21/17 06:41 Creatinine 1.00 mg/dL (0.55-1.02) 08/21/17 06:41 Est GFR (MDRD) Af Amer > 60 (>60) 08/21/17 06:41 Est GFR (MDRD) Non-Af 58 (>60) L 08/21/17 06:41 Glucose 95 mg/dL (65-99) 08/21/17 06:41 POC Glucose (mg/dL) 90 mg/dL (65-99) 08/21/17 06:02 Calcium 8.4 mg/dL (8.5-10.1) L 08/21/17 06:41 Corrected Calcium TNP 08/21/17 06:41 Magnesium 2.4 mg/dL (1.7-2.9) 08/17/17 13:31 Total Bilirubin 0.20 mg/dL (0.2-1.0) 08/21/17 06:41 AST 12 Units/L (15-37) L 08/21/17 06:41 ALT 21 Units/L (12-78) 08/21/17 06:41 Alkaline Phosphatase 47 Units/L (46-116) 08/21/17 06:41 B-Natriuretic Peptide 15.4 pg/mL (0-79) 08/17/17 13:31 Total Protein 7.0 g/dL (6.4-8.2) 08/21/17 06:41 Albumin 3.9 g/dL (3.4-5.0) 08/21/17 06:41 Globulin 3.1 g/dL (2.5-4.5) 08/21/17 06:41 Albumin/Globulin Ratio 1.3 Ratio (1.1-2.1) 08/21/17 06:41 Specimen Type Clean catch urine 08/17/17 13:18 Urine Color Yellow (YELLOW) 08/17/17 13:18 Urine Appearance Clear (CLEAR) 08/17/17 13:18 Urine pH 6.0 (5.0 - 8.0) 08/17/17 13:18 Ur Specific [place] 1.005 (1.000-1.030) 08/17/17 13:18 Urine Protein Negative (NEGATIVE) 08/17/17 13:18 Urine Glucose (UA) Negative (NEGATIVE) 08/17/17 13:18 Urine Ketones Negative (NEGATIVE) 08/17/17 13:18 Urine Occult Blood Negative (NEGATIVE) 08/17/17 13:18 Urine Nitrite Negative (NEGATIVE) 08/17/17 13:18 Urine Bilirubin Negative (NEGATIVE) 08/17/17 13:18 Urine Urobilinogen Normal (NORMAL) 08/17/17 13:18 Ur Leukocyte Esterase Negative (NEGATIVE) 08/17/17 13:18 - Plan (1) COPD exacerbation Status: Acute Plan: SUPPLEMENTAL OXYGEN, RESPIRATORY TREATMENTS, CONTINUE APOLINAR MEDS, CONTINUE TO MONITOR (2) Dehydration Status: Acute Plan: NORMAL SALINE AT 75ML/HR, ALBUMIN 25% IV DAILY, CONTINUE TO MONITOR
[2017-08-21 13:26] VITALS: BP 146/67
== END 2017-08-21 11:55 | disposition home or self-care (01) | DRG 191 ==
LOC: INTOOBSV 12:44 → MED/SURG 12:44 → OBSVTOIN 12:44
PROVIDERS: ADMIT Internal Medicine; ATTEND Internal Medicine
DX: J44.1 Chronic obstructive pulmonary disease with (acute) exacerbation (principal); I11.0 Hypertensive heart disease with heart failure; E86.0 Dehydration; R06.02 Shortness of breath; E11.65 Type 2 diabetes mellitus with hyperglycemia; R60.0 Localized edema; N17.9 Acute kidney failure, unspecified; R53.83 Other fatigue
CPT/HCPCS: 36415; 71045; 80053; 81003; 83735; 83880; 85025; 93005; 94640; 94760; A4222; P9047; J7620; J7626

== ENCOUNTER → 2019-05-28 15:15 | Observation (INO) ==
[2019-05-26 19:51] LABS: BASOPHILS % (AUTO) 0.3 % (0.2-1.0); EOSINOPHILS # (AUTO) 0.1 x10^3/uL (0.0-0.2); EOSINOPHILS % (AUTO) 0.9 % (0.9-2.9); HEMOGLOBIN 11.3 g/dL (12.0-16.0); LYMPHOCYTES # (AUTO) 2.6 X10^3/uL (1.3-2.9); LYMPHOCYTES % (AUTO) 19.9 % (21.0-51.0); MEAN CORPUSCULAR HEMOGLOBIN 27.8 pg (27.0-34.0); MEAN CORPUSCULAR HGB CONC 32.2 g/dL (33.0-35.0); MEAN CORPUSCULAR VOLUME 86.5 fL (80.0-100.0); MEAN PLATELET VOLUME 7.5 fL (7.4-11.0); MONOCYTES # (AUTO) 1.1 x10^3/uL (0.3-0.8); MONOCYTES % (AUTO) 8.5 % (0.0-13.0); NEUTROPHILS # (AUTO) 9.2 x10^3/uL (2.2-4.8); NEUTROPHILS % (AUTO) 70.4 % (42.0-75.0); PLATELET COUNT 347 X10^3/uL (150.0-450.0); RED BLOOD COUNT 4.04 X10^6/uL (3.5-5.4)
[2019-05-26 19:53] LABS: ALANINE AMINOTRANSFERASE 32 Units/L (12-78); ALBUMIN 3.3 g/dL (3.4-5.0); ALKALINE PHOSPHATASE 72 Units/L (46-116); ASPARTATE AMINO TRANSFERASE 14 Units/L (15-37); BLOOD UREA NITROGEN 15 mg/dL (7-18); CALCIUM 8.5 mg/dL (8.5-10.1); CARBON DIOXIDE 29.1 mmol/L (21-32); CHLORIDE 105 mmol/L (98-107); CKMB % 2.2 % (<4); COR CA(FOR HYPOALB) 9.1 mg/dL (8.5-10.1); CREATINE KINASE 63 Units/L (26-192); CREATINE KINASE MB 1.4 ng/mL (0-4.0); CREATININE 0.89 mg/dL (0.55-1.02); SODIUM 140 mmol/L (136-145); TOTAL PROTEIN 6.7 g/dL (6.4-8.2); TROPONIN I < 0.02 ng/mL (0-1.5); eGFR NON BLACK RACES > 60 (>60)
[2019-05-26] MEDS: NS 1000 ML 1,000 ML IV SCH (20:06)
[2019-05-26 20:19] VITALS: BMI 33.0
[2019-05-26] MEDS: DUONEB 0.5 MG/3 MG (3 mL) NEB SCH (21:20)
[2019-05-26] MEDS: PULMICORT NEB TX 0.5 MG NEB SCH (21:20)
--- NOTE | 2019-05-26 22:16 | RAD ---
HISTORYSOB, CHEST PAINSTUDYCHEST, 1 [id number]/2019FINDINGSThe trachea is midline. The cardiac silhouette is stable. The lungs are clear without focal infiltrate or effusion. No acute fracture. Right shoulder arthroplasty. Left chest port unchanged.IMPRESSIONNo acute cardiopulmonary disease.Electronically signed by: CAMILA CAMPOS (May 26, 2019 22:15:29)
[2019-05-26] MEDS: AMBIEN PO PRN (22:25)
[2019-05-26] MEDS: ULTRAM PO PRN (23:44)
[2019-05-27 01:16] LABS: CKMB % 2.5 % (<4); CREATINE KINASE 56 Units/L (26-192); CREATINE KINASE MB 1.4 ng/mL (0-4.0); TROPONIN I < 0.02 ng/mL (0-1.5)
[2019-05-27 06:29] LABS: BASOPHILS # (AUTO) 0.1 X10^3/uL (0.0-0.1); BASOPHILS % (AUTO) 0.6 % (0.2-1.0); EOSINOPHILS # (AUTO) 0.1 x10^3/uL (0.0-0.2); EOSINOPHILS % (AUTO) 0.9 % (0.9-2.9); HEMATOCRIT 33.9 % (36.0-47.0); HEMOGLOBIN 10.8 g/dL (12.0-16.0); LYMPHOCYTES # (AUTO) 1.9 X10^3/uL (1.3-2.9); LYMPHOCYTES % (AUTO) 16.7 % (21.0-51.0); MEAN CORPUSCULAR HEMOGLOBIN 27.8 pg (27.0-34.0); MEAN CORPUSCULAR HGB CONC 31.9 g/dL (33.0-35.0); MEAN CORPUSCULAR VOLUME 87.1 fL (80.0-100.0); MONOCYTES % (AUTO) 8.6 % (0.0-13.0); NEUTROPHILS # (AUTO) 8.4 x10^3/uL (2.2-4.8); NEUTROPHILS % (AUTO) 73.2 % (42.0-75.0); PLATELET COUNT 299 X10^3/uL (150.0-450.0); RED CELL DISTRIBUTION WIDTH 13.8 % (11.6-16.5); WHITE BLOOD COUNT 11.4 X10^3/uL (3.6-10.0)
[2019-05-27 06:59] LABS: ALANINE AMINOTRANSFERASE 27 Units/L (12-78); ALBUMIN 2.8 g/dL (3.4-5.0); ALKALINE PHOSPHATASE 64 Units/L (46-116); ASPARTATE AMINO TRANSFERASE 13 Units/L (15-37); BLOOD UREA NITROGEN 9 mg/dL (7-18); CALCIUM 7.9 mg/dL (8.5-10.1); CARBON DIOXIDE 27.2 mmol/L (21-32); CHLORIDE 107 mmol/L (98-107); COR CA(FOR HYPOALB) 8.9 mg/dL (8.5-10.1); CREATINE KINASE 51 Units/L (26-192); CREATININE 0.74 mg/dL (0.55-1.02); SODIUM 141 mmol/L (136-145); TOTAL PROTEIN 5.9 g/dL (6.4-8.2); TROPONIN I < 0.02 ng/mL (0-1.5); eGFR NON BLACK RACES > 60 (>60)
[2019-05-27] MEDS: NS 1000 ML 1,000 ML IV SCH (09:01)
[2019-05-27] MEDS: PULMICORT NEB TX 0.5 MG NEB SCH ×2 (09:07→20:25)
[2019-05-27] MEDS: DUONEB 0.5 MG/3 MG (3 mL) NEB SCH ×4 (09:07→20:25)
[2019-05-27] MEDS: PROTONIX INJ 40 MG VIAL IVP SCH ×2 (10:58→21:27)
[2019-05-27] MEDS: PEPCID 20 MG IV PREMIX* 20 MG/50 ML BAG IV SCH ×2 (10:58→21:27)
[2019-05-27] MEDS: ULTRAM PO PRN (11:02)
--- NOTE | 2019-05-27 11:40 | DR.UPDATE ---
H&P Update History and Physical Update: History and Physical reviewed and patient examined. Changes noted: Yes with the following: IS A 69 YEAR OLD PATIENT OF OURS WHO WAS SEEN IN THE OFFICE YESTERDAY FOR COMPLAINTS OF SHORTNESS OF BREATH, CHEST DISCOMFORT, AND WEAKNESS. SYMPTOMS REPORTEDLY STARTED EARLIER IN THE DAY. PATIENT HAS A PMH OF COPD, ASTHMA, VA, HTN, AND CARDIAC ARRHYTHMIA. WE ADMITTED PATIENT FOR FURTHER OBSERVATION AND TREATMENT. ON ARRIVAL TO THE HOSPITAL, VITALS WERE 98.3-61-20-97%-166/80. LABS WERE OBTAINED. ABNORMAL LAB VALUES INCLUDE THE FOLLOWING: WBC 13.0, HGB 11.3, HCT 35.0, TOTAL BILI 0.10, AST 14, ALBUMIN 3.3. CARDIAC ENZYMES WITHIN NORMAL LIMITS. CHEST XRAY WAS OBTAINED AND REVEALED: NO ACUTE CARDIOPULMONARY DISEASE. AN EKG WAS OBTAINED AND REVEALED: SINUS RHYTHM WITH HR 52. SHE WAS STARTED ON PROCAL AT 40ML/HR, RESPIRATORY TX, IV PEPCID, IV PROTONIX, AND HOME MEDICATIONS WERE RESUMED. WE WILL REPEAT CARDIAC ENZYMES AND EKGS TODAY AND OBTAIN AN ECHO. OTHERWISE, WE WILL FOLLOW UP WITH AM LABS AND CONTINUE TO MONITOR. Prescription drug monitoring program results: PDMP reviewed and no concerns identified H&P Reviewed: Yes Patient was examined?: Yes
--- NOTE | 2019-05-27 11:43 | RAD ---
HISTORYSOBSTUDYCHEST, 1 VIEWCOMPARISONFINDINGSThe trachea is midline. The cardiac silhouette is unremarkable. A left-sided port is in place tip in the right atrium. The lungs are clear without focal infiltrate or effusion. The bony thorax is unremarkable. A right shoulder prosthesis is in place.IMPRESSIONNo acute cardiopulmonary disease and no significant interval change from May 26, 2019 prior film..Electronically signed by: KALYN JENSEN (May 27, 2019 11:41:45)
[2019-05-27 12:05] LABS: CKMB % 1.8 % (<4); CREATINE KINASE 55 Units/L (26-192); CREATINE KINASE MB < 1.0 ng/mL (0-4.0); TROPONIN I < 0.02 ng/mL (0-1.5)
[2019-05-27 15:32] LABS: CKMB % 2.2 % (<4); CREATINE KINASE 50 Units/L (26-192); CREATINE KINASE MB 1.1 ng/mL (0-4.0); TROPONIN I < 0.02 ng/mL (0-1.5)
[2019-05-27] MEDS: CARDIZEM CD 240 MG 24-HR PO SCH (18:32)
[2019-05-27] MEDS: ALDACTONE TAB 25 MG PO SCH (18:32)
[2019-05-27] MEDS: CELEXA PO SCH (18:33)
[2019-05-27] MEDS: DIFLUCAN PO SCH (18:33)
[2019-05-27] MEDS: LIPITOR TAB 10 MG PO SCH (18:34)
[2019-05-27] MEDS: PERCOCET TAB 5/325 MG PO PRN (20:05)
[2019-05-27 20:06] LABS: CREATINE KINASE 57 Units/L (26-192); CREATINE KINASE MB < 1.0 ng/mL (0-4.0); TROPONIN I < 0.02 ng/mL (0-1.5)
[2019-05-27 20:11] LABS: CKMB % 1.8 % (<4)
[2019-05-27] MEDS: ELIQUIS PO SCH (21:30)
[2019-05-27] MEDS: LASIX PO SCH (21:30)
[2019-05-27] MEDS: XANAX PO SCH (21:30)
[2019-05-27] MEDS: AMBIEN PO PRN (21:30)
[2019-05-27] MEDS: APRESOLINE TAB 25 MG PO SCH (21:30)
[2019-05-27] MEDS: MICRO K EXTEN CAP 10 MEQ PO SCH (21:30)
[2019-05-28] MEDS: APRESOLINE TAB 25 MG PO SCH (05:34)
[2019-05-28] MEDS: XANAX PO SCH (05:34)
--- NOTE | 2019-05-28 06:36 | RAD ---
HISTORYShortness of breathSTUDYCHEST, 1 VIEWCOMPARISONbruary 2019FINDINGSThere is a left-sided port present. The heart is upper limits normal in size. No congestive heart failure is noted. No acute alveolar infiltrates are identified. No pleural effusions are present. Bony thorax is unremarkable with the exception of a right shoulder arthroplasty.IMPRESSIONNo definite infiltrates or congestive heart failureElectronically signed by: CAMILA CAMPOS (May 28, 2019 06:35:02)
[2019-05-28 06:41] LABS: BASOPHILS # (AUTO) 0.1 X10^3/uL (0.0-0.1); BASOPHILS % (AUTO) 0.6 % (0.2-1.0); EOSINOPHILS # (AUTO) 0.1 x10^3/uL (0.0-0.2); EOSINOPHILS % (AUTO) 0.8 % (0.9-2.9); HEMATOCRIT 34.8 % (36.0-47.0); HEMOGLOBIN 11.2 g/dL (12.0-16.0); LYMPHOCYTES # (AUTO) 1.6 X10^3/uL (1.3-2.9); LYMPHOCYTES % (AUTO) 15.6 % (21.0-51.0); MEAN CORPUSCULAR HEMOGLOBIN 27.7 pg (27.0-34.0); MEAN CORPUSCULAR HGB CONC 32.1 g/dL (33.0-35.0); MEAN CORPUSCULAR VOLUME 86.4 fL (80.0-100.0); MEAN PLATELET VOLUME 7.2 fL (7.4-11.0); MONOCYTES % (AUTO) 9.4 % (0.0-13.0); NEUTROPHILS # (AUTO) 7.4 x10^3/uL (2.2-4.8); NEUTROPHILS % (AUTO) 73.6 % (42.0-75.0); PLATELET COUNT 289 X10^3/uL (150.0-450.0); RED BLOOD COUNT 4.03 X10^6/uL (3.5-5.4); RED CELL DISTRIBUTION WIDTH 14.2 % (11.6-16.5); WHITE BLOOD COUNT 10.1 X10^3/uL (3.6-10.0)
[2019-05-28 06:59] LABS: ALANINE AMINOTRANSFERASE 30 Units/L (12-78); ALKALINE PHOSPHATASE 69 Units/L (46-116); ASPARTATE AMINO TRANSFERASE 11 Units/L (15-37); BLOOD UREA NITROGEN 4 mg/dL (7-18); CALCIUM 8.3 mg/dL (8.5-10.1); CARBON DIOXIDE 29.8 mmol/L (21-32); CHLORIDE 106 mmol/L (98-107); COR CA(FOR HYPOALB) 9.1 mg/dL (8.5-10.1); COR NA(FOR HYPERGLY) 143 mmol/L (136-145); CREATININE 0.81 mg/dL (0.55-1.02); SODIUM 143 mmol/L (136-145); TOTAL PROTEIN 6.2 g/dL (6.4-8.2); eGFR NON BLACK RACES > 60 (>60)
[2019-05-28] MEDS: PERCOCET TAB 5/325 MG PO PRN (08:31)
[2019-05-28] MEDS: DUONEB 0.5 MG/3 MG (3 mL) NEB SCH (08:33)
[2019-05-28] MEDS: PULMICORT NEB TX 0.5 MG NEB SCH (08:34)
[2019-05-28] MEDS: PEPCID 20 MG IV PREMIX* 20 MG/50 ML BAG IV SCH (09:59)
[2019-05-28] MEDS: DIFLUCAN PO SCH (10:00)
[2019-05-28] MEDS: MICRO K EXTEN CAP 10 MEQ PO SCH (10:01)
[2019-05-28] MEDS: LASIX PO SCH (10:01)
[2019-05-28] MEDS: CARDIZEM CD 240 MG 24-HR PO SCH (10:02)
[2019-05-28] MEDS: LIPITOR TAB 10 MG PO SCH (10:02)
[2019-05-28] MEDS: ELIQUIS PO SCH (10:02)
[2019-05-28] MEDS: CELEXA PO SCH (10:03)
[2019-05-28] MEDS: ALDACTONE TAB 25 MG PO SCH (10:03)
[2019-05-28] MEDS: PROTONIX INJ 40 MG VIAL IVP SCH (10:04)
[2019-05-28] MEDS: ULTRAM PO PRN (11:04)
[2019-05-28 12:23] VITALS: BP 152/86
[~2019-05-28 15:15] MED LIST changes: +ANTIVERT TAB 25 MG PO PRN; +BENADRYL CAP/TAB 25 MG PO ONE; +DEMADEX PO PRN; +GLUCOPHAGE XR PO SCH; +ISOSORBIDE MONONITRATE ER PO SCH; +LEVAQUIN PREMIX IV 750 MG 750 MG/150 ML BAG IV SCH; -LEXISCAN IV ONE; +NITROSTAT SL PRN; +PROCALAMINE 3 % 1,000 ML IV SCH; +SALINE 3% 15 ML NEB TX NEB ONE; +SOLU-Medrol 125 MG VIAL IVP ONE; +SOMA TAB 350 MG PO PRN; +SYNTHROID 25 mcg TAB ONE; +SYNTHROID 25 mcg TAB PO SCH; +TOPROL XL PO ONE; +TOPROL XL PO SCH; +VOLTAREN 1 % GEL MULTI DOSE TUBE TOP PRN
== END | disposition home health service (06) ==
LOC: MED/SURG
PROVIDERS: ADMIT Internal Medicine; ATTEND Internal Medicine
DX: Z79.899 Other long term (current) drug therapy; I10 Essential (primary) hypertension; J44.9 Chronic obstructive pulmonary disease, unspecified; R06.02 Shortness of breath; R07.89 Other chest pain; I25.10 Atherosclerotic heart disease of native coronary artery without angina pectoris; R53.1 Weakness
CPT/HCPCS: 36415; 71010; 71045; 80053; 82550; 82553; 84484; 85025; 93005; 93306; 94640; 94760; 96360; 96361; 96374; A4222; C9113; G0378; J1642; J1956; J2930; J7030; J7620; J7626; S0028

== ENCOUNTER 2019-12-12 13:28 | Inpatient (IN) ==
--- NOTE | 2019-12-12 13:53 | DR.GENAD ---
HPI Time Seen Time Seen by Provider: 12/12/19 13:34 PCP Primary Care Physician: RICARDO Complaint/Symptoms Chief Complaint Doctors Comments: Patient has talked to Dr. Souza and will try rehab to see if mobility will increase. Chief Complaint:: PT. C/O WEAKNESS AND DECREASED MOBILITY. PT. STATES FOR THE PAST 1.5 MONTHS IT IS GETTING MORE DIFFICULT FOR HER TO WALK. PT. STATES SHE HAS BEEN HAVING FREQUENT FALLS AT HOME. COVID-19 Coronavirus risk:travel/contact w/high risk person: No Has patient experienced Coronavirus symptoms: No Nurses notes reviewed Nurses Notes Review: Yes Source History Provided: Patient Mode of Arrival Mode of Arrival: EMS Timing Onset of Chief Complaint: 11/12/19 Came on: Gradually Duration How lon Duration: Days Location Location: [facility] Severity Severity: Moderate Modifying Factors Worsens:: exertion Associated Signs and Symptoms Associated Signs and Symptoms: falling PMH PMH Past Medical History: Yes Past Medical History: Anxiety, Arthritis, CHF, COPD, Coronary Artery Disease, Depression, Migraines, Hypertension and Hypothyroidism Past Surgical History: Yes Surgical History: Cholecystectomy, Hysterectomy, Ortho Surgery and Other Family History History of Family Medical Conditions: Yes Family Medical History: Heart Failure Social History Does patient currently use any type of tobacco product: No Have you used tobacco products in the last 12 months: No Type of Tobacco Use: None Does any household member use tobacco: No Alcohol Use: None Do you use any recreational Drugs:: No Lives With: Spouse Lives Where: Home Travel Risk Coronavirus risk:travel/contact w/high risk person: No Has patient experienced Coronavirus symptoms: No Infectious screening In the last 2 months have you had wt loss of >10#?: NO Have you had fever, night sweats or hemotysis?: No Have you traveled outside the country in the last 6 months?: No Isolation: Standard ROS Review of Systems Constitutional: Weakness Eyes: No Symptoms Reported ENTM: No Symptoms Reported Respiratoy: No Symptoms Reported Cardiovascular: No Symptoms Reported Gastrointestinal/Abdominal: No Symptoms Reported Genitourinary: No Symptoms Reported Neurological: Weakness Musculoskeletal: No Symptoms Reported Integumentary: No Symptoms Reported Hematologic/Lymphatic: No Symptoms Reported Endocrine: No Symptoms Reported Psychiatric: No Symptoms Reported All Other Systems: Reviewed and Negative PE Vital Signs Vitals: Temperature 97.3 F Pulse Rate 80 Respiratory Rate 17 Blood Pressure [Left Calf] 172/80 Blood Pressure [Left Arm] 152/86 Blood Pressure 169/87 O2 Sat by Pulse Oximetry 100 General Limitations: No Limitations General Appearance: Alert and In No Apparent Distress Head Head Exam: Normal Inspection, Atraumatic and Normocephalic Eyes Eye exam: Normal Appearance and EOMI ENT ENT Exam: Normal Exam and Normal Oropharynx External Ear Exam: Normal External Inspection Nose Exam: Normal Nose Exam Mouth Exam: Normal Inspection Throat Exam: Normal Inspection Neck Neck Exam: Normal Inspection, Full ROM and Trachea Midline Chest Chest Inspection: Normal Inspection Respiratory Respiratory Exam: Normal Lung Sounds Bilat Respiratory Exam: Bilateral: Clear to Auscultation Cardiovascular Cardiovascular Exam: Regular Rate Abdominal Exam Abdominal Exam: Normal Inspection Extremities Extremities Exam: Normal Inspection Back Back Exam: Normal Inspection Neurologic Neurological Exam: Alert, Oriented X3, CN II-XII Intact and Normal Gait Psychiatric Psychiatric Exam: Normal Affect Skin Skin Exam: Normal Color ROR Labs Reviewed Result Diagrams: 12/12/19 14:04 12/12/19 14:04 Laboratory: WBC 7.2 X10^3/uL (3.6-10.0) 12/12/19 14:04 RBC 4.46 X10^6/uL (3.5-5.4) 12/12/19 14:04 Hgb 11.7 g/dL (12.0-16.0) L 12/12/19 14:04 Hct 37.4 % (36.0-47.0) 12/12/19 14:04 MCV 83.9 fL (80.0-100.0) 12/12/19 14:04 MCH 26.2 pg (27.0-34.0) L 12/12/19 14:04 MCHC 31.3 g/dL (33.0-35.0) L 12/12/19 14:04 RDW 13.2 % (11.6-16.5) 12/12/19 14:04 Plt Count 364 X10^3/uL (150.0-450.0) 12/12/19 14:04 MPV 7.7 fL (7.4-11.0) 12/12/19 14:04 Neut % (Auto) 49.0 % (42.0-75.0) 12/12/19 14:04 Lymph % (Auto) 35.7 % (21.0-51.0) 12/12/19 14:04 Person % (Auto) 10.3 % (0.0-13.0) 12/12/19 14:04 Eos % (Auto) 4.4 % (0.9-2.9) H 12/12/19 14:04 Baso % (Auto) 0.6 % (0.2-1.0) 12/12/19 14:04 Neut # (Auto) 3.5 x10^3/uL (2.2-4.8) 12/12/19 14:04 Lymph # (Auto) 2.6 X10^3/uL (1.3-2.9) 12/12/19 14:04 Person # (Auto) 0.7 x10^3/uL (0.3-0.8) 12/12/19 14:04 Eos # (Auto) 0.3 x10^3/uL (0.0-0.2) H 12/12/19 14:04 Baso # (Auto) 0.0 X10^3/uL (0.0-0.1) 12/12/19 14:04 Absolute Nucleated RBC 0.0 /100WBC 12/12/19 14:04 Sodium 139 mmol/L (136-145) 12/12/19 14:04 Corrected Sodium TNP 12/12/19 14:04 Potassium 3.8 mmol/L (3.5-5.1) 12/12/19 14:04 Chloride 102 mmol/L (98-107) 12/12/19 14:04 Carbon Dioxide 31.8 mmol/L (21-32) 12/12/19 14:04 BUN 8 mg/dL (7-18) 12/12/19 14:04 Creatinine 1.00 mg/dL (0.55-1.02) 12/12/19 14:04 Est GFR (MDRD) Af Amer > 60 (>60) 12/12/19 14:04 Est GFR (MDRD) Non-Af 58 (>60) L 12/12/19 14:04 Glucose 97 mg/dL (65-99) 12/12/19 14:04 Calcium 10.8 mg/dL (8.5-10.1) H 12/12/19 14:04 Corrected Calcium 11.4 mg/dL (8.5-10.1) H 12/12/19 14:04 Total Bilirubin 0.30 mg/dL (0.2-1.0) 12/12/19 14:04 AST 16 Units/L (15-37) 12/12/19 14:04 ALT 13 Units/L (12-78) 12/12/19 14:04 Alkaline Phosphatase 74 Units/L (46-116) 12/12/19 14:04 Creatine Kinase 36 Units/L (26-192) 12/12/19 14:04 CK-MB (CK-2) < 1.0 ng/mL (0-4.0) 12/12/19 14:04 CK/CKMB % Calc 2.8 % (<4) 12/12/19 14:04 Troponin I < 0.02 ng/mL (0-1.5) 12/12/19 14:04 Total Protein 7.2 g/dL (6.4-8.2) 12/12/19 14:04 Albumin 3.3 g/dL (3.4-5.0) L 12/12/19 14:04 Globulin 3.9 g/dL (2.5-4.5) 12/12/19 14:04 Albumin/Globulin Ratio 0.8 Ratio (1.1-2.1) L 12/12/19 14:04 EKG Rate: 95 [place]: LAD Rhythm: NSR Block: None Opioid Opioid Risk Tool Age (Can box if 16-45): No History of Preadolescent Sexual Abuse: No Total: 0 Total Score Risk Category: Low Risk Copyright: Miko CASIANO predicting aberrant behaviors
[2019-12-12] MEDS ORDERED: CATAPRES TAB 0.2 MG PO ONE (14:04)
[2019-12-12] MEDS ORDERED: CATAPRES TAB 0.2 MG ONE (14:08)
[2019-12-12 14:17] LABS: BASOPHILS % (AUTO) 0.6 % (0.2-1.0); EOSINOPHILS # (AUTO) 0.3 x10^3/uL (0.0-0.2); EOSINOPHILS % (AUTO) 4.4 % (0.9-2.9); HEMATOCRIT 37.4 % (36.0-47.0); HEMOGLOBIN 11.7 g/dL (12.0-16.0); LYMPHOCYTES # (AUTO) 2.6 X10^3/uL (1.3-2.9); LYMPHOCYTES % (AUTO) 35.7 % (21.0-51.0); MEAN CORPUSCULAR HEMOGLOBIN 26.2 pg (27.0-34.0); MEAN CORPUSCULAR HGB CONC 31.3 g/dL (33.0-35.0); MEAN CORPUSCULAR VOLUME 83.9 fL (80.0-100.0); MEAN PLATELET VOLUME 7.7 fL (7.4-11.0); MONOCYTES # (AUTO) 0.7 x10^3/uL (0.3-0.8); MONOCYTES % (AUTO) 10.3 % (0.0-13.0); NEUTROPHILS # (AUTO) 3.5 x10^3/uL (2.2-4.8); PLATELET COUNT 364 X10^3/uL (150.0-450.0); RED BLOOD COUNT 4.46 X10^6/uL (3.5-5.4); RED CELL DISTRIBUTION WIDTH 13.2 % (11.6-16.5); WHITE BLOOD COUNT 7.2 X10^3/uL (3.6-10.0)
--- NOTE | 2019-12-12 14:18 | RAD ---
HISTORYFALLSSTUDYCHEST, 1 VIEWCOMPARISONFINDINGSThe trachea is midline. there is a left internal jugular port in place tip in the right atrium a. The heart size and configuration are normal. The lungs are clear without focal infiltrate or effusion or pneumothorax. No rib fractures are observed.. The bony thorax is unremarkable.IMPRESSIONNo acute cardiopulmonary disease and no change from prior chest film October 12, 2019..Electronically signed by: KALYN JENSEN (Dec 12, 2019 14:17:07)
[2019-12-12 14:31] LABS: BLOOD UREA NITROGEN 8 mg/dL (7-18); CALCIUM 10.8 mg/dL (8.5-10.1); CARBON DIOXIDE 31.8 mmol/L (21-32); CHLORIDE 102 mmol/L (98-107); SODIUM 139 mmol/L (136-145); TROPONIN I < 0.02 ng/mL (0-1.5); eGFR NON BLACK RACES 58 (>60)
[2019-12-12 14:35] LABS: ALANINE AMINOTRANSFERASE 13 Units/L (12-78); ALBUMIN 3.3 g/dL (3.4-5.0); ALKALINE PHOSPHATASE 74 Units/L (46-116); ASPARTATE AMINO TRANSFERASE 16 Units/L (15-37); CKMB % 2.8 % (<4); COR CA(FOR HYPOALB) 11.4 mg/dL (8.5-10.1); CREATINE KINASE 36 Units/L (26-192); CREATINE KINASE MB < 1.0 ng/mL (0-4.0); TOTAL PROTEIN 7.2 g/dL (6.4-8.2)
[2019-12-12] MEDS ORDERED: NS 1000 ML 1,000 ML ONE (16:02)
[2019-12-12] MEDS: NS 1000 ML 1,000 ML IV SCH (17:19)
[2019-12-12 19:08] VITALS: BMI 30.7
[2019-12-12] MEDS ORDERED: AMBIEN PO PRN (21:36)
[2019-12-12] MEDS ORDERED: NORCO 5/325 MG TAB ONE (21:39)
[2019-12-12] MEDS: NORCO 5/325 MG TAB PO PRN (21:41)
[2019-12-13 06:10] LABS: BASOPHILS % (AUTO) 0.7 % (0.2-1.0); EOSINOPHILS # (AUTO) 0.3 x10^3/uL (0.0-0.2); EOSINOPHILS % (AUTO) 4.4 % (0.9-2.9); HEMATOCRIT 33.7 % (36.0-47.0); HEMOGLOBIN 10.7 g/dL (12.0-16.0); LYMPHOCYTES # (AUTO) 2.4 X10^3/uL (1.3-2.9); LYMPHOCYTES % (AUTO) 32.9 % (21.0-51.0); MEAN CORPUSCULAR HEMOGLOBIN 26.6 pg (27.0-34.0); MEAN CORPUSCULAR HGB CONC 31.7 g/dL (33.0-35.0); MEAN PLATELET VOLUME 7.8 fL (7.4-11.0); MONOCYTES # (AUTO) 0.7 x10^3/uL (0.3-0.8); MONOCYTES % (AUTO) 9.7 % (0.0-13.0); NEUTROPHILS # (AUTO) 3.8 x10^3/uL (2.2-4.8); NEUTROPHILS % (AUTO) 52.3 % (42.0-75.0); PLATELET COUNT 300 X10^3/uL (150.0-450.0); RED BLOOD COUNT 4.02 X10^6/uL (3.5-5.4); RED CELL DISTRIBUTION WIDTH 13.3 % (11.6-16.5); WHITE BLOOD COUNT 7.3 X10^3/uL (3.6-10.0)
[2019-12-13] MEDS: NS 1000 ML 1,000 ML IV SCH ×2 (06:25→20:17)
[2019-12-13] MEDS: NORCO 5/325 MG TAB PO PRN (06:25)
[2019-12-13 06:28] LABS: ALANINE AMINOTRANSFERASE 12 Units/L (12-78); ALBUMIN 2.8 g/dL (3.4-5.0); ALKALINE PHOSPHATASE 65 Units/L (46-116); ASPARTATE AMINO TRANSFERASE 16 Units/L (15-37); BLOOD UREA NITROGEN 9 mg/dL (7-18); CALCIUM 10.3 mg/dL (8.5-10.1); CARBON DIOXIDE 29.9 mmol/L (21-32); CHLORIDE 107 mmol/L (98-107); COR CA(FOR HYPOALB) 11.3 mg/dL (8.5-10.1); CREATININE 0.84 mg/dL (0.55-1.02); SODIUM 141 mmol/L (136-145); TOTAL PROTEIN 6.1 g/dL (6.4-8.2); eGFR NON BLACK RACES > 60 (>60)
--- NOTE | 2019-12-13 12:23 | DR.H&P ---
H&P - History & Physical for Day of: H&P Date: 12/12/19 - Chief Complaint Chief Complaint: weakness, falls - History of Present Illness History of Present Illness: PT IS 69 BF, PT OF DR SANTIAGO, ADMITTED VIA ER WITH CO INCREASED WEAKNES AND MULTIPLE FALLS. PT RECENTLY HAD CT L SPINE WITH SEVERE MULTI LEVEL DDD. PT HAS PMH OF MALIGNANT HTN. PT STATES HER LEGS "GIVE OUT". PT ADMITTED FOR TREATMENT OF ACUTE ILLNESS. - Past Medical History Past Medical History: Coronary Artery Disease, Hypertension, Depression, Anxiety, Hypothyroidism, COPD, Arthritis, Migraines, CHF Additional Medical History: Congenital Heart Disease, Asthma, Fibroids, Muscle Weakness, Back Pain, Degenerative Disc Disease - Past Surgical History Surgical History: Hysterectomy, Other - Family History Family Medical History: Diabetes Mellitus, [place], Hypertension - Social History Does patient currently use any type of tobacco product: No Have you used tobacco products in the last 12 months: No Type of Tobacco Use: None Does any household member use tobacco: No Alcohol Use: None Drug Use: None - Medications Home Medications: morphine Allergy (Verified 12/12/19 13:31) rofecoxib [From Vioxx] Allergy (Verified 12/12/19 13:31) CONTINUE taking the following medications aspirin [Aspirin Low Dose] 81 mg PO DAILY 12/12/19 [History] gabapentin 600 mg PO TID 12/12/19 [History] hydroxyzine HCl 10 mg PO DAILY 12/12/19 [History] meclizine 25 mg PO BID PRN 12/12/19 [History] metolazone 2.5 mg PO DAILY 12/12/19 [History] nystatin 5 ml PO QID 12/12/19 [History] - Review of Systems Constitutional: Weakness Eyes: No Symptoms Reported ENT: No Symptoms Reported Respiratory: SOB with Excertion Cardiovascular: No Symptoms Reported, Edema Gastrointestinal: No Symptoms Reported Genitourinary: No Symptoms Reported Musculoskeletal: Back Pain, Leg Pain Skin: No Symptoms Reported Neurological: Weakness - Physical Exam Vital Signs: Temperature 98.2 F Pulse Rate [Left Brachial] 83 Pulse Rate 76 Respiratory Rate 20 Blood Pressure [Left Calf] 172/80 Blood Pressure [Left Arm] 143/68 Blood Pressure 169/87 O2 Sat by Pulse Oximetry 98 Oriented: Normal Eyes: Normal Ear: Normal Nose: Normal Throat: Normal Respiratory: RLL Diminished, LLL Diminished Cardiovascular: Normal, Edema : Normal Auscultation: Bowel Sounds: Normal Palpation: Normal Tenderness: Normal Skin: Decreased Turgur Musculoskeletal: Right, Left, Back:Thoracic, Back:Lumbar, Motor Deficit Psychiatric: Normal Mood Description: Calm Speech Pattern: Clear, Appropriate - Assessment/Plan (1) Weakness Status: Acute Plan: ADMIT, ADMISSION LABS. EKG AND CXR ON ADMISSION. VERIFY HOME MEDICATION, BP CONTROL. GENTLE IV HYDRATION, STRICT I&O. 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 RESP CONSULT, SUPPLEMENTAL O2 (2) Acute and chronic respiratory failure Qualifiers: Status: Acute (3) CKD (chronic kidney disease) stage 3, GFR 30-59 ml/min Status: Acute (4) Hyperglycemia due to type 2 diabetes mellitus Status: Acute (5) CAD (coronary artery disease) Status: Chronic (6) COPD (chronic obstructive pulmonary disease) Status: Chronic (7) Degenerative disc disease Status: Chronic - Allergies Allergies/Adverse Reactions: Allergies Allergy/AdvReac Type Severity Reaction Status Date / Time morphine Allergy Verified 12/12/19 13:31 rofecoxib [From Vioxx] Allergy Verified 12/12/19 13:31
--- NOTE | 2019-12-13 12:27 | PCM.PROG ---
Progress Note - Progress Note for Day of Date of Exam: 12/13/19 - Subjective Subjective: PT IS 69BF, ER ADMISSION WITH CO GENERALIZED WEAKNESS AND MULTIPLE FALLS WITH INTRACTABLE LOWER BACK PAIN. PT HAD CT L SPINE 11/10 WITH MULTIPLE LEVEL DDD. PT HAS RESP FAILURE AND COPD, STAYS ON SUPPLEMENTAL O2. PT HAD CXR ON ADMISSION WITHOUT ACUTE FINDINGS. PTS HAD MALIGNANT HTN, BP MEDICATION HAS BEEN RESUMED, UA AND UC ORDERED. PLAN TO CONSULT CASE MANAGEMENT OF NH PLACEMENT. - Past Medical Family Social History Past Med/Fam/Surg Hx: No changes since H&P Allergies: Allergies morphine Allergy (Verified 12/12/19 13:31) rofecoxib [From Vioxx] Allergy (Verified 12/12/19 13:31) - Review of Systems ROS: No change since H&P - Vital Signs and I&O's Vital Signs: Temperature 98.2 F Pulse Rate [Left Brachial] 83 Pulse Rate 76 Respiratory Rate 20 Blood Pressure [Left Calf] 172/80 Blood Pressure [Left Arm] 143/68 Blood Pressure 169/87 O2 Sat by Pulse Oximetry 98 Intake and Output: Intake & Output 12/11/19 12/12/19 12/13/19 12/14/19 11:59 11:59 11:59 11:59 Intake Total 1077 / 1077 Balance 1077 / 1077 - Physical Exam Oriented: Normal Eyes: Normal Ear: Normal Nose: Normal Throat: Normal Respiratory: Diminished Cardiovascular: Normal, Edema : Normal Auscultation: Bowel Sounds: Normal Tenderness: Normal Skin: Decreased Turgur Musculoskeletal: Right, Left, Back:Thoracic, Back:Lumbar, Motor Deficit Psychiatric: Normal Mood Description: Calm Speech Pattern: Clear, Appropriate - Laboratory and Diagnostics Result Diagrams: 12/13/19 06:00 12/13/19 06:00 Labs: Laboratory WBC 7.3 X10^3/uL (3.6-10.0) 12/13/19 06:00 RBC 4.02 X10^6/uL (3.5-5.4) 12/13/19 06:00 Hgb 10.7 g/dL (12.0-16.0) L 12/13/19 06:00 Hct 33.7 % (36.0-47.0) L 12/13/19 06:00 MCV 84.0 fL (80.0-100.0) 12/13/19 06:00 MCH 26.6 pg (27.0-34.0) L 12/13/19 06:00 MCHC 31.7 g/dL (33.0-35.0) L 12/13/19 06:00 RDW 13.3 % (11.6-16.5) 12/13/19 06:00 Plt Count 300 X10^3/uL (150.0-450.0) 12/13/19 06:00 MPV 7.8 fL (7.4-11.0) 12/13/19 06:00 Neut % (Auto) 52.3 % (42.0-75.0) 12/13/19 06:00 Lymph % (Auto) 32.9 % (21.0-51.0) 12/13/19 06:00 [place] % (Auto) 9.7 % (0.0-13.0) 12/13/19 06:00 Eos % (Auto) 4.4 % (0.9-2.9) H 12/13/19 06:00 Baso % (Auto) 0.7 % (0.2-1.0) 12/13/19 06:00 Neut # (Auto) 3.8 x10^3/uL (2.2-4.8) 12/13/19 06:00 Lymph # (Auto) 2.4 X10^3/uL (1.3-2.9) 12/13/19 06:00 [place] # (Auto) 0.7 x10^3/uL (0.3-0.8) 12/13/19 06:00 Eos # (Auto) 0.3 x10^3/uL (0.0-0.2) H 12/13/19 06:00 Baso # (Auto) 0.0 X10^3/uL (0.0-0.1) 12/13/19 06:00 Absolute Nucleated RBC 0.0 /100WBC 12/13/19 06:00 Sodium 141 mmol/L (136-145) 12/13/19 06:00 Corrected Sodium TNP 12/13/19 06:00 Potassium 3.8 mmol/L (3.5-5.1) 12/13/19 06:00 Chloride 107 mmol/L (98-107) 12/13/19 06:00 Carbon Dioxide 29.9 mmol/L (21-32) 12/13/19 06:00 BUN 9 mg/dL (7-18) 12/13/19 06:00 Creatinine 0.84 mg/dL (0.55-1.02) 12/13/19 06:00 Est GFR (MDRD) Af Amer > 60 (>60) 12/13/19 06:00 Est GFR (MDRD) Non-Af > 60 (>60) 12/13/19 06:00 Glucose 104 mg/dL (65-99) H 12/13/19 06:00 POC Glucose (mg/dL) 95 mg/dL (65-99) 12/13/19 05:31 Calcium 10.3 mg/dL (8.5-10.1) H 12/13/19 06:00 Corrected Calcium 11.3 mg/dL (8.5-10.1) H 12/13/19 06:00 Total Bilirubin 0.20 mg/dL (0.2-1.0) 12/13/19 06:00 AST 16 Units/L (15-37) 12/13/19 06:00 ALT 12 Units/L (12-78) 12/13/19 06:00 Alkaline Phosphatase 65 Units/L (46-116) 12/13/19 06:00 Creatine Kinase 36 Units/L (26-192) 12/12/19 14:04 CK-MB (CK-2) < 1.0 ng/mL (0-4.0) 12/12/19 14:04 CK/CKMB % Calc 2.8 % (<4) 12/12/19 14:04 Troponin I < 0.02 ng/mL (0-1.5) 12/12/19 14:04 Total Protein 6.1 g/dL (6.4-8.2) L 12/13/19 06:00 Albumin 2.8 g/dL (3.4-5.0) L 12/13/19 06:00 Globulin 3.3 g/dL (2.5-4.5) 12/13/19 06:00 Albumin/Globulin Ratio 0.8 Ratio (1.1-2.1) L 12/13/19 06:00 - Plan (1) Weakness Status: Acute Plan: REPEAT AM LABS, PT/OT EVALUATION. EKG AND CXR ON ADMISSION. VERIFY HOME MEDICATION, BP CONTROL. GENTLE IV HYDRATION, STRICT I&O. OCCULT STOOL DUE TO HX OF DEAN OF MEN ANTICOAGULANT THERAPY. RESP CONSULT, SUPPLEMENTAL O2 (2) Acute and chronic respiratory failure Status: Acute Qualifiers: (3) CKD (chronic kidney disease) stage 3, GFR 30-59 ml/min Status: Acute (4) Hyperglycemia due to type 2 diabetes mellitus Status: Acute (5) CAD (coronary artery disease) Status: Chronic (6) COPD (chronic obstructive pulmonary disease) Status: Chronic (7) Degenerative disc disease Status: Chronic
[2019-12-13] MEDS ORDERED: TOPROL XL PO ONE (12:36)
[2019-12-13] MEDS: CARDIZEM CD 240 MG 24-HR PO SCH (12:40)
[2019-12-13] MEDS: TOPROL XL PO SCH (12:40)
[2019-12-13] MEDS: LIPITOR TAB 10 MG PO SCH (12:40)
[2019-12-13] MEDS: CELEXA PO SCH (12:40)
[2019-12-13] MEDS: ISOSORBIDE MONONITRATE ER 24-HR PO SCH (12:40)
[2019-12-13 17:26] LABS: BILIRUBIN,URINE NEGATIVE (NEGATIVE); BLOOD/HEMOGLOBIN,URINE NEGATIVE (NEGATIVE); GLUCOSE, URINE NEGATIVE (NEGATIVE); KETONES,URINE NEGATIVE (NEGATIVE); LEUKOCYTE ESTERASE ,URINE NEGATIVE (NEGATIVE); NITRITES,URINE NEGATIVE (NEGATIVE); PROTEIN,URINE NEGATIVE (NEGATIVE); UROBILINOGEN,URINE NORMAL (NORMAL)
[2019-12-13 17:30] LABS: APPEARANCE,URINE CLEAR (CLEAR); COLOR,URINE DARK YELLOW (YELLOW)
[2019-12-13] MEDS ORDERED: ELIQUIS ONE (19:52)
[2019-12-13] MEDS: ELIQUIS PO SCH (20:16)
[2019-12-14 06:09] LABS: BASOPHILS % (AUTO) 0.5 % (0.2-1.0); EOSINOPHILS # (AUTO) 0.3 x10^3/uL (0.0-0.2); EOSINOPHILS % (AUTO) 2.8 % (0.9-2.9); HEMATOCRIT 32.3 % (36.0-47.0); HEMOGLOBIN 10.1 g/dL (12.0-16.0); LYMPHOCYTES # (AUTO) 2.6 X10^3/uL (1.3-2.9); LYMPHOCYTES % (AUTO) 26.6 % (21.0-51.0); MEAN CORPUSCULAR HEMOGLOBIN 26.5 pg (27.0-34.0); MEAN CORPUSCULAR HGB CONC 31.3 g/dL (33.0-35.0); MEAN CORPUSCULAR VOLUME 84.7 fL (80.0-100.0); MEAN PLATELET VOLUME 8.2 fL (7.4-11.0); MONOCYTES % (AUTO) 10.4 % (0.0-13.0); NEUTROPHILS # (AUTO) 5.8 x10^3/uL (2.2-4.8); NEUTROPHILS % (AUTO) 59.7 % (42.0-75.0); PLATELET COUNT 330 X10^3/uL (150.0-450.0); RED BLOOD COUNT 3.82 X10^6/uL (3.5-5.4); RED CELL DISTRIBUTION WIDTH 13.5 % (11.6-16.5); WHITE BLOOD COUNT 9.7 X10^3/uL (3.6-10.0)
[2019-12-14 06:29] LABS: ALANINE AMINOTRANSFERASE 12 Units/L (12-78); ALBUMIN 2.9 g/dL (3.4-5.0); ALKALINE PHOSPHATASE 63 Units/L (46-116); ASPARTATE AMINO TRANSFERASE 13 Units/L (15-37); BLOOD UREA NITROGEN 6 mg/dL (7-18); CALCIUM 10.2 mg/dL (8.5-10.1); CARBON DIOXIDE 28.1 mmol/L (21-32); CHLORIDE 104 mmol/L (98-107); COR CA(FOR HYPOALB) 11.1 mg/dL (8.5-10.1); SODIUM 139 mmol/L (136-145); TOTAL PROTEIN 6.3 g/dL (6.4-8.2); eGFR NON BLACK RACES > 60 (>60)
[2019-12-14] MEDS ORDERED: K-RIDER 10 MEQ/NS 100 ML 10 MEQ/100 ML BAG IV PRN (07:13)
[2019-12-14] MEDS ORDERED: MICRO K EXTEN CAP 10 MEQ PO PRN (07:13)
[2019-12-14] MEDS ORDERED: POTASSIUM CHL 60 MEQ/NS 0.45% 500 ML IV PRN (07:13)
[2019-12-14] MEDS ORDERED: K-DUR TAB 20 MEQ PO PRN (07:13)
[2019-12-14] MEDS ORDERED: KLOR-CON PO PRN (07:13)
[2019-12-14] MEDS ORDERED: POTASSIUM CHL 40 MEQ/NS 0.45% 500 ML IV PRN (07:13)
[2019-12-14] MEDS ORDERED: POTASSIUM CHLORIDE LIQ 20 MEQ UDC PO PRN (07:13)
[2019-12-14] MEDS ORDERED: TOPROL XL PO ONE (08:06)
[2019-12-14] MEDS: TOPROL XL PO SCH (08:14)
[2019-12-14] MEDS: SYNTHROID 25 mcg TAB PO SCH (08:14)
[2019-12-14] MEDS: CARDIZEM CD 240 MG 24-HR PO SCH (08:14)
[2019-12-14] MEDS: ISOSORBIDE MONONITRATE ER 24-HR PO SCH (08:14)
[2019-12-14] MEDS: ELIQUIS PO SCH ×2 (08:15→21:11)
[2019-12-14] MEDS: LIPITOR TAB 10 MG PO SCH (08:15)
[2019-12-14] MEDS: CELEXA PO SCH (08:15)
[2019-12-14] MEDS: NS 1000 ML 1,000 ML IV SCH ×2 (10:55→23:30)
[2019-12-14 11:51] LABS: ABG BASE EXCESS 4.8 mmol/L (-2.0-2.0)
[2019-12-14 11:52] LABS: ABG ALLEN TEST POS; ABG HCO3 30.4 mmol/L (22-26)
[2019-12-14] MEDS: ZOFRAN INJ 4 MG VIAL IVP PRN ×2 (13:30→13:38)
[2019-12-14] MEDS ORDERED: ZOFRAN INJ 4 MG VIAL ONE (13:31)
[2019-12-14] MEDS: NEURONTIN TAB 600 MG PO SCH ×2 (14:31→21:11)
[2019-12-14] MEDS: XANAX PO SCH ×2 (14:32→23:45)
[2019-12-14] MEDS: DUONEB 0.5 MG/3 MG (3 mL) NEB SCH ×3 (17:00→20:00)
[2019-12-14] MEDS ORDERED: PROTONIX TAB 40 MG PO ONE (19:34)
[2019-12-14] MEDS: MICRO K EXTEN CAP 10 MEQ PO SCH (21:11)
[2019-12-14] MEDS: PROTONIX TAB 40 MG PO SCH (21:11)
[2019-12-15] MEDS: DUONEB 0.5 MG/3 MG (3 mL) NEB SCH ×6 (00:15→21:25)
[2019-12-15] MEDS ORDERED: XANAX PO PRN (02:33)
[2019-12-15] MEDS: NEURONTIN TAB 600 MG PO SCH ×3 (05:59→21:00)
[2019-12-15 06:25] LABS: BASOPHILS # (AUTO) 0.1 X10^3/uL (0.0-0.1); BASOPHILS % (AUTO) 0.6 % (0.2-1.0); EOSINOPHILS # (AUTO) 0.3 x10^3/uL (0.0-0.2); EOSINOPHILS % (AUTO) 2.8 % (0.9-2.9); HEMATOCRIT 30.7 % (36.0-47.0); HEMOGLOBIN 9.8 g/dL (12.0-16.0); LYMPHOCYTES % (AUTO) 33.3 % (21.0-51.0); MEAN CORPUSCULAR HEMOGLOBIN 26.6 pg (27.0-34.0); MEAN CORPUSCULAR HGB CONC 31.9 g/dL (33.0-35.0); MEAN CORPUSCULAR VOLUME 83.5 fL (80.0-100.0); MEAN PLATELET VOLUME 8.1 fL (7.4-11.0); MONOCYTES # (AUTO) 0.7 x10^3/uL (0.3-0.8); MONOCYTES % (AUTO) 7.3 % (0.0-13.0); PLATELET COUNT 308 X10^3/uL (150.0-450.0); RED BLOOD COUNT 3.68 X10^6/uL (3.5-5.4); RED CELL DISTRIBUTION WIDTH 13.5 % (11.6-16.5); WHITE BLOOD COUNT 8.9 X10^3/uL (3.6-10.0)
[2019-12-15 06:33] LABS: ALANINE AMINOTRANSFERASE 11 Units/L (12-78); ALBUMIN 2.6 g/dL (3.4-5.0); ALKALINE PHOSPHATASE 57 Units/L (46-116); ASPARTATE AMINO TRANSFERASE 11 Units/L (15-37); BLOOD UREA NITROGEN 5 mg/dL (7-18); CALCIUM 10.1 mg/dL (8.5-10.1); CARBON DIOXIDE 29.9 mmol/L (21-32); CHLORIDE 107 mmol/L (98-107); COR CA(FOR HYPOALB) 11.2 mg/dL (8.5-10.1); CREATININE 0.79 mg/dL (0.55-1.02); SODIUM 142 mmol/L (136-145); TOTAL PROTEIN 5.9 g/dL (6.4-8.2); eGFR NON BLACK RACES > 60 (>60)
[2019-12-15] MEDS ORDERED: TOPROL XL PO ONE (08:41)
[2019-12-15] MEDS: CARDIZEM CD 240 MG 24-HR PO SCH (08:45)
[2019-12-15] MEDS: CELEXA PO SCH (08:46)
[2019-12-15] MEDS: ISOSORBIDE MONONITRATE ER 24-HR PO SCH (08:47)
[2019-12-15] MEDS: ELIQUIS PO SCH ×2 (08:47→20:44)
[2019-12-15] MEDS: LIPITOR TAB 10 MG PO SCH (08:48)
[2019-12-15] MEDS: MICRO K EXTEN CAP 10 MEQ PO SCH ×2 (08:48→20:44)
[2019-12-15] MEDS: PROTONIX TAB 40 MG PO SCH ×2 (08:48→20:45)
[2019-12-15] MEDS: TOPROL XL PO SCH (08:49)
[2019-12-15] MEDS: SYNTHROID 25 mcg TAB PO SCH (08:49)
[2019-12-15] MEDS: INVANZ INJ 1 GM VIAL 1 GM in NS 100 ML IV + SPIKE MINIBAG* 100 ML IV SCH (10:09)
[2019-12-15] MEDS: PERCOCET TAB 5/325 MG PO PRN ×3 (10:14→20:45)
[2019-12-15 10:26] LABS: CKMB % 2.6 % (<4); CREATINE KINASE 38 Units/L (26-192); CREATINE KINASE MB < 1.0 ng/mL (0-4.0); TROPONIN I < 0.02 ng/mL (0-1.5)
[2019-12-15] MEDS: NS 1000 ML 1,000 ML IV SCH (17:40)
--- NOTE | 2019-12-15 20:20 | PCM.PROG ---
Progress Note - Progress Note for Day of Date of Exam: 12/15/19 - Subjective Subjective: WAS ADMITTED ON 12/12/19 WITH INCREASED WEAKNESS AND MULTIPLE FALLS AT HOME. SHE HAD A RECENT L-SPINE CT WHICH REVEALED MULTI-LEVEL DDD. PATIENT REPORTED THAT HER LEGS GIVE OUT OFTEN. SHE REPORTS BEING UNABLE TO CARE FOR HERSELF AT HOME IN THIS CONDITION. TODAY, SHE IS ALERT AND ORIENTED, LYING IN BED ON MORNING ROUNDS. SHE CONTINUES WITH COMPLAINTS OF WEAKNESS. SHE ALSO REPORTS MILD LOWER ABDOMINAL PAIN. ON EXAMINATION, HEART IS REGULAR IN RATE AND RHYTHM. BILATERAL LUNGS ARE NOTED WITH DIMINISHED LUNG SOUNDS THROUGHOUT. ABDOMEN IS ROUND, SOFT, AND NOTED WITH MILD SUPRAPUBIC TENDERNESS. NORMAL BOWEL SOUNDS NOTED IN ALL QUADRANTS. HER VITALS THIS MORNING ARE: 98.9-75-20-94%NC- 132/68. LABS WERE OBTAINED. ABNORMAL LAB VALUES INCLUDE THE FOLLOWING: HGB 9.8, HCT 30.7, BUN 5, AST 11, ALT 11, TOTAL PROTEIN 5.9, ALBUMIN 2.6. CARDIAC ENZYMES ARE PENDING. STOOL IS POSITIVE FOR OCCULT BLOOD. URINE CULTURE REVEALS GROWTH OF E.COLI. SHE IS CURRNETLY RECEIVING NS AT 75 ML/HR, THE POTASSIUM AND MAGNESIUM PROTOCOLS, HUMULIN R SLIDING SCALE, DONEBS Q4H, ZOFRAN 4MG IV Q6H PRN, AND HER HOME MEDICATIONS WERE RESUMED. TODAY, WE WILL START INVANZ 1G IV DAILY. WE WILL HAVE PHYSICAL THERAPY EVALUATE PATIENT AND POSSIBLY ARRANGE FOR PHYSICAL THERAPY AT [facility]. OTHERWISE, WE PLAN TO FOLLOW UP WITH AM LABS AND CONTINUE TO MONITOR. - Past Medical Family Social History Past Med/Fam/Surg Hx: No changes since H&P Allergies: Allergies morphine Allergy (Verified 12/12/19 13:31) rofecoxib [From Vioxx] Allergy (Verified 12/12/19 13:31) - Review of Systems ROS: No change since H&P - Vital Signs and I&O's Vital Signs: Temperature 98.1 F Pulse Rate [Left Brachial] 62 Pulse Rate 64 Respiratory Rate 22 Blood Pressure [Left Calf] 172/80 Blood Pressure [Left Arm] 114/70 Blood Pressure 169/87 O2 Sat by Pulse Oximetry 94 Intake and Output: Intake & Output 12/13/19 12/14/19 12/15/19 12/16/19 11:59 11:59 11:59 11:59 Intake Total 1076 / 7 2555 / 2555 3052 / 3052 1285 / 1285 Balance 1077 / 1077 2555 / 2555 3052 / 3052 1285 / 1285 - Physical Exam Oriented: Normal Eyes: Normal Ear: Normal Nose: Normal Throat: Normal Respiratory: Diminished Cardiovascular: Normal, Edema : Normal Auscultation: Bowel Sounds: Normal Tenderness: Suprapubic, Mild Skin: Decreased Turgur Musculoskeletal: Right, Left, Back:Thoracic, Back:Lumbar, Motor Deficit Psychiatric: Normal Mood Description: Calm Speech Pattern: Clear, Appropriate - Laboratory and Diagnostics Result Diagrams: 12/15/19 05:40 12/15/19 05:40 Labs: 12/13/19 17:10 Urine,Clean Catch Urine Culture - Final Escherichia Coli Laboratory WBC 8.9 X10^3/uL (3.6-10.0) 12/15/19 05:40 RBC 3.68 X10^6/uL (3.5-5.4) 12/15/19 05:40 Hgb 9.8 g/dL (12.0-16.0) L 12/15/19 05:40 Hct 30.7 % (36.0-47.0) L 12/15/19 05:40 MCV 83.5 fL (80.0-100.0) 12/15/19 05:40 MCH 26.6 pg (27.0-34.0) L 12/15/19 05:40 MCHC 31.9 g/dL (33.0-35.0) L 12/15/19 05:40 RDW 13.5 % (11.6-16.5) 12/15/19 05:40 Plt Count 308 X10^3/uL (150.0-450.0) 12/15/19 05:40 MPV 8.1 fL (7.4-11.0) 12/15/19 05:40 Neut % (Auto) 56.0 % (42.0-75.0) 12/15/19 05:40 Lymph % (Auto) 33.3 % (21.0-51.0) 12/15/19 05:40 [place] % (Auto) 7.3 % (0.0-13.0) 12/15/19 05:40 Eos % (Auto) 2.8 % (0.9-2.9) 12/15/19 05:40 Baso % (Auto) 0.6 % (0.2-1.0) 12/15/19 05:40 Neut # (Auto) 5.0 x10^3/uL (2.2-4.8) H 12/15/19 05:40 Lymph # (Auto) 3.0 X10^3/uL (1.3-2.9) H 12/15/19 05:40 [place] # (Auto) 0.7 x10^3/uL (0.3-0.8) 12/15/19 05:40 Eos # (Auto) 0.3 x10^3/uL (0.0-0.2) H 12/15/19 05:40 Baso # (Auto) 0.1 X10^3/uL (0.0-0.1) 12/15/19 05:40 Absolute Nucleated RBC 0.1 /100WBC 12/15/19 05:40 Sample Site Rr 12/14/19 11:46 ABG pH 7.410 (7.35-7.45) 12/14/19 11:46 ABG pCO2 48.0 mmHg (35.0-45.0) H 12/14/19 11:46 ABG pO2 84.0 mmHg (80.0-100.0) 12/14/19 11:46 ABG HCO3 30.4 mmol/L (22-26) H* 12/14/19 11:46 ABG O2 Saturation 96.0 % (90-100) 12/14/19 11:46 ABG Base Excess 4.8 mmol/L (-2.0-2.0) H 12/14/19 11:46 Lui Test Pos 12/14/19 11:46 A-a Gradient 56.0 mmHg 12/14/19 11:46 FiO2 28.0 12/14/19 11:46 Blood Gas Comments Tal well cdn/gmb 12/14/19 11:46 Sodium 142 mmol/L (136-145) 12/15/19 05:40 Corrected Sodium TNP 12/15/19 05:40 Potassium 3.5 mmol/L (3.5-5.1) 12/15/19 05:40 Chloride 107 mmol/L (98-107) 12/15/19 05:40 Carbon Dioxide 29.9 mmol/L (21-32) 12/15/19 05:40 BUN 5 mg/dL (7-18) L 12/15/19 05:40 Creatinine 0.79 mg/dL (0.55-1.02) 12/15/19 05:40 Est GFR (MDRD) Af Amer > 60 (>60) 12/15/19 05:40 Est GFR (MDRD) Non-Af > 60 (>60) 12/15/19 05:40 Glucose 82 mg/dL (65-99) 12/15/19 05:40 POC Glucose (mg/dL) 113 mg/dL (65-99) H 12/15/19 20:03 Calcium 10.1 mg/dL (8.5-10.1) 12/15/19 05:40 Corrected Calcium 11.2 mg/dL (8.5-10.1) H 12/15/19 05:40 Total Bilirubin 0.40 mg/dL (0.2-1.0) 12/15/19 05:40 AST 11 Units/L (15-37) L 12/15/19 05:40 ALT 11 Units/L (12-78) L 12/15/19 05:40 Alkaline Phosphatase 57 Units/L (46-116) 12/15/19 05:40 Creatine Kinase 38 Units/L (26-192) 12/15/19 06:08 CK-MB (CK-2) < 1.0 ng/mL (0-4.0) 12/15/19 06:08 CK/CKMB % Calc 2.6 % (<4) 12/15/19 06:08 Troponin I < 0.02 ng/mL (0-1.5) 12/15/19 06:08 Total Protein 5.9 g/dL (6.4-8.2) L 12/15/19 05:40 Albumin 2.6 g/dL (3.4-5.0) L 12/15/19 05:40 Globulin 3.3 g/dL (2.5-4.5) 12/15/19 05:40 Albumin/Globulin Ratio 0.8 Ratio (1.1-2.1) L 12/15/19 05:40 Specimen Type Clean catch urine 12/13/19 17:10 Urine Color Dark yellow (YELLOW) 12/13/19 17:10 Urine Appearance Clear (CLEAR) 12/13/19 17:10 Urine pH 5.0 (5.0 - 8.0) 12/13/19 17:10 Ur Specific [place] 1.030 (1.000-1.030) 12/13/19 17:10 Urine Protein Negative (NEGATIVE) 12/13/19 17:10 Urine Glucose (UA) Negative (NEGATIVE) 12/13/19 17:10 Urine Ketones Negative (NEGATIVE) 12/13/19 17:10 Urine Occult Blood Negative (NEGATIVE) 12/13/19 17:10 Urine Nitrite Negative (NEGATIVE) 12/13/19 17:10 Urine Bilirubin Negative (NEGATIVE) 12/13/19 17:10 Urine Urobilinogen Normal (NORMAL) 12/13/19 17:10 Ur Leukocyte Esterase Negative (NEGATIVE) 12/13/19 17:10 Stool Description 25 grs soft yellow 12/14/19 14:25 Stl Occult Blood (IFOB) Positive (NEGATIVE) A 12/14/19 14:25 - Plan (1) Weakness Status: Acute Plan: REPEAT AM LABS, PT/OT EVALUATION. GENTLE IV HYDRATION, STRICT I&O. PT/OT (2) Frequent falls Status: Acute (3) Acute and chronic respiratory failure Status: Acute Qualifiers: Respiratory failure complication: unspecified whether with hypoxia or hypercapnia Qualified Code(s): J96.20 - Acute and chronic respiratory failure, unspecified whether with hypoxia or hypercapnia (4) CKD (chronic kidney disease) stage 3, GFR 30-59 ml/min Status: Chronic (5) Hyperglycemia due to type 2 diabetes mellitus Status: Chronic Qualifiers: Diabetes mellitus [place] insulin use: with supervisor intermediates use Qualified Code(s): E11.65 - Type 2 diabetes mellitus with hyperglycemia; Z79.4 - termite control servicer (current) use of insulin (6) CAD (coronary artery disease) Status: Chronic Qualifiers: Coronary Disease-Associated Artery/Lesion type: [place] artery [place] vs. transplanted heart: [place] heart Associated angina: with unspecified angina Qualified Code(s): I25.119 - Atherosclerotic heart disease of [place] coronary artery with unspecified angina pectoris (7) COPD (chronic obstructive pulmonary disease) Status: Chronic Qualifiers: COPD type: unspecified COPD Qualified Code(s): J44.9 - Chronic obstructive pulmonary disease, unspecified (8) Degenerative disc disease Status: Chronic Qualifiers: Mid-cervical spinal level: unspecified (9) History of anemia Status: Chronic
[2019-12-16] MEDS: DUONEB 0.5 MG/3 MG (3 mL) NEB SCH ×6 (00:35→20:45)
[2019-12-16] MEDS: NEURONTIN TAB 600 MG PO SCH (05:25)
[2019-12-16] MEDS: NS 1000 ML 1,000 ML IV SCH ×2 (05:25→20:30)
[2019-12-16] MEDS: PERCOCET TAB 5/325 MG PO PRN ×2 (05:39→20:07)
[2019-12-16 07:01] LABS: ALANINE AMINOTRANSFERASE 14 Units/L (12-78); ALKALINE PHOSPHATASE 61 Units/L (46-116); ASPARTATE AMINO TRANSFERASE 16 Units/L (15-37); BLOOD UREA NITROGEN 9 mg/dL (7-18); CALCIUM 10.2 mg/dL (8.5-10.1); CARBON DIOXIDE 28.1 mmol/L (21-32); CHLORIDE 105 mmol/L (98-107); CREATININE 0.91 mg/dL (0.55-1.02); SODIUM 140 mmol/L (136-145); TOTAL PROTEIN 6.7 g/dL (6.4-8.2); eGFR NON BLACK RACES > 60 (>60)
[2019-12-16 07:21] LABS: BASOPHILS % (AUTO) 0.6 % (0.2-1.0); EOSINOPHILS # (AUTO) 0.3 x10^3/uL (0.0-0.2); EOSINOPHILS % (AUTO) 4.1 % (0.9-2.9); HEMATOCRIT 31.8 % (36.0-47.0); HEMOGLOBIN 9.9 g/dL (12.0-16.0); LYMPHOCYTES # (AUTO) 2.5 X10^3/uL (1.3-2.9); LYMPHOCYTES % (AUTO) 31.4 % (21.0-51.0); MEAN CORPUSCULAR HEMOGLOBIN 26.2 pg (27.0-34.0); MEAN CORPUSCULAR HGB CONC 31.2 g/dL (33.0-35.0); MEAN PLATELET VOLUME 8.3 fL (7.4-11.0); MONOCYTES # (AUTO) 0.7 x10^3/uL (0.3-0.8); MONOCYTES % (AUTO) 9.2 % (0.0-13.0); NEUTROPHILS # (AUTO) 4.3 x10^3/uL (2.2-4.8); NEUTROPHILS % (AUTO) 54.7 % (42.0-75.0); PLATELET COUNT 325 X10^3/uL (150.0-450.0); RED BLOOD COUNT 3.78 X10^6/uL (3.5-5.4); RED CELL DISTRIBUTION WIDTH 13.4 % (11.6-16.5); WHITE BLOOD COUNT 7.8 X10^3/uL (3.6-10.0)
[2019-12-16] MEDS ORDERED: TOPROL XL PO ONE (08:18)
[2019-12-16] MEDS: CARDIZEM CD 240 MG 24-HR PO SCH (08:57)
[2019-12-16] MEDS: CELEXA PO SCH (08:59)
[2019-12-16] MEDS: ELIQUIS PO SCH ×2 (09:04→20:06)
[2019-12-16] MEDS: TOPROL XL PO SCH (09:04)
[2019-12-16] MEDS: SYNTHROID 25 mcg TAB PO SCH (09:04)
[2019-12-16] MEDS: MICRO K EXTEN CAP 10 MEQ PO SCH ×2 (09:05→20:07)
[2019-12-16] MEDS: LIPITOR TAB 10 MG PO SCH (09:05)
[2019-12-16] MEDS: PROTONIX TAB 40 MG PO SCH ×2 (09:05→20:07)
[2019-12-16] MEDS: INVANZ INJ 1 GM VIAL 1 GM in NS 100 ML IV + SPIKE MINIBAG* 100 ML IV SCH (09:05)
[2019-12-16] MEDS: ISOSORBIDE MONONITRATE ER 24-HR PO SCH (09:06)
[2019-12-16] MEDS ORDERED: XANAX PO PRN (09:52)
--- NOTE | 2019-12-16 11:50 | PCM.PROG ---
Progress Note - Progress Note for Day of Date of Exam: 12/16/19 - Subjective Subjective: WAS ADMITTED ON 12/12/19 WITH INCREASED WEAKNESS AND MULTIPLE FALLS AT HOME, SHE HAD A RECENT L-SPINE CT WHICH REVEALED MULTI-LEVEL DDD. PATIENT REPORTED THAT HER LEGS GIVE OUT OFTEN. SHE REPORTS BEING UNABLE TO CARE FOR HERSELF AT HOME IN THIS CONDITION AND HAS REQUESTED PHYSICAL THERAPY AT [facility]. URINE CULTURE HAS GROWN OUT E.COLI. TODAY, SHE IS ALERT AND ORIENTED, LYING IN BED ON MORNING ROUNDS. SHE CONTINUES WITH COMPLAINTS OF WEAKNESS. ON EXAMINATION, HEART IS REGULAR IN RATE AND RHYTHM. BILATERAL LUNGS ARE NOTED WITH DIMINISHED LUNG SOUNDS THROUGHOUT. ABDOMEN IS ROUND, SOFT, AND NOTED WITH MILD SUPRAPUBIC TENDERNESS. NORMAL BOWEL SOUNDS NOTED IN ALL QUADRANTS. HER VITALS THIS MORNING ARE: 98.8-62-18-95%NC-130/80. LABS WERE OBTAINED. ABNORMAL LAB VALUES INCLUDE THE FOLLOWING: HGB 9.9, HCT 31.8, CALCIUM 10.2, ALBUMIN 3.0. SHE IS CURRNETLY RECEIVING NS AT 75 ML/HR, INVANZ 1G IV DAILY, THE POTASSIUM AND MAGNESIUM PROTOCOLS, HUMULIN R SLIDING SCALE, DONEBS Q4H, ZOFRAN 4MG IV Q6H PRN, AND HER HOME MEDICATIONS WERE RESUMED. SHE HAS BEEN ACCEPTED AT [facility], PENDING COVID TEST. WE WILL DECREASE HER DOSES OF PERCOCET, ALPRAZOLAM, AND GABAPENTIN. OTHERWSE, WE WILL CONTINUE WITH CURRENT PLAN OF CARE TODAY. WE PLAN TO FOLLOW UP WITH AM LABS AND CONTINUE TO MONITOR. - Past Medical Family Social History Past Med/Fam/Surg Hx: No changes since H&P Allergies: Allergies morphine Allergy (Verified 12/12/19 13:31) rofecoxib [From Vioxx] Allergy (Verified 12/12/19 13:31) - Review of Systems ROS: No change since H&P - Vital Signs and I&O's Vital Signs: Temperature 98.8 F Pulse Rate [Left Brachial] 62 Pulse Rate 70 Respiratory Rate 18 Blood Pressure [Left Calf] 172/80 Blood Pressure [Left Arm] 130/80 Blood Pressure 169/87 O2 Sat by Pulse Oximetry 95 Intake and Output: Intake & Output 12/13/19 12/14/19 12/15/19 12/16/19 11:59 11:59 11:59 11:59 Intake Total 1076 / 1076 2555 / 2555 3052 / 3052 2335 / 2335 Balance 1077 / 1077 2555 / 2555 3052 / 3052 2335 / 2335 - Physical Exam Oriented: Normal Eyes: Normal Ear: Normal Nose: Normal Throat: Normal Respiratory: Diminished Cardiovascular: Normal, Edema : Normal Auscultation: Bowel Sounds: Normal Palpation: Normal Tenderness: Suprapubic, Mild Skin: Decreased Turgur Musculoskeletal: Right, Left, Back:Thoracic, Back:Lumbar, Motor Deficit Psychiatric: Normal Mood Description: Calm Speech Pattern: Clear, Appropriate - Laboratory and Diagnostics Result Diagrams: 12/16/19 05:30 12/16/19 05:30 Labs: 12/13/19 17:10 Urine,Clean Catch Urine Culture - Final Escherichia Coli Laboratory WBC 7.8 X10^3/uL (3.6-10.0) 12/16/19 05:30 RBC 3.78 X10^6/uL (3.5-5.4) 12/16/19 05:30 Hgb 9.9 g/dL (12.0-16.0) L 12/16/19 05:30 Hct 31.8 % (36.0-47.0) L 12/16/19 05:30 MCV 84.0 fL (80.0-100.0) 12/16/19 05:30 MCH 26.2 pg (27.0-34.0) L 12/16/19 05:30 MCHC 31.2 g/dL (33.0-35.0) L 12/16/19 05:30 RDW 13.4 % (11.6-16.5) 12/16/19 05:30 Plt Count 325 X10^3/uL (150.0-450.0) 12/16/19 05:30 MPV 8.3 fL (7.4-11.0) 12/16/19 05:30 Neut % (Auto) 54.7 % (42.0-75.0) 12/16/19 05:30 Lymph % (Auto) 31.4 % (21.0-51.0) 12/16/19 05:30 [place] % (Auto) 9.2 % (0.0-13.0) 12/16/19 05:30 Eos % (Auto) 4.1 % (0.9-2.9) H 12/16/19 05:30 Baso % (Auto) 0.6 % (0.2-1.0) 12/16/19 05:30 Neut # (Auto) 4.3 x10^3/uL (2.2-4.8) 12/16/19 05:30 Lymph # (Auto) 2.5 X10^3/uL (1.3-2.9) 12/16/19 05:30 [place] # (Auto) 0.7 x10^3/uL (0.3-0.8) 12/16/19 05:30 Eos # (Auto) 0.3 x10^3/uL (0.0-0.2) H 12/16/19 05:30 Baso # (Auto) 0.0 X10^3/uL (0.0-0.1) 12/16/19 05:30 Absolute Nucleated RBC 0.0 /100WBC 12/16/19 05:30 Sample Site Rr 12/14/19 11:46 ABG pH 7.410 (7.35-7.45) 12/14/19 11:46 ABG pCO2 48.0 mmHg (35.0-45.0) H 12/14/19 11:46 ABG pO2 84.0 mmHg (80.0-100.0) 12/14/19 11:46 ABG HCO3 30.4 mmol/L (22-26) H* 12/14/19 11:46 ABG O2 Saturation 96.0 % (90-100) 12/14/19 11:46 ABG Base Excess 4.8 mmol/L (-2.0-2.0) H 12/14/19 11:46 Lui Test Pos 12/14/19 11:46 A-a Gradient 56.0 mmHg 12/14/19 11:46 FiO2 28.0 12/14/19 11:46 Blood Gas Comments Tal well cdn/gmb 12/14/19 11:46 Sodium 140 mmol/L (136-145) 12/16/19 05:30 Corrected Sodium TNP 12/16/19 05:30 Potassium 3.8 mmol/L (3.5-5.1) 12/16/19 05:30 Chloride 105 mmol/L (98-107) 12/16/19 05:30 Carbon Dioxide 28.1 mmol/L (21-32) 12/16/19 05:30 BUN 9 mg/dL (7-18) 12/16/19 05:30 Creatinine 0.91 mg/dL (0.55-1.02) 12/16/19 05:30 Est GFR (MDRD) Af Amer > 60 (>60) 12/16/19 05:30 Est GFR (MDRD) Non-Af > 60 (>60) 12/16/19 05:30 Glucose 84 mg/dL (65-99) 12/16/19 05:30 POC Glucose (mg/dL) 99 mg/dL (65-99) 12/16/19 11:10 Calcium 10.2 mg/dL (8.5-10.1) H 12/16/19 05:30 Corrected Calcium 11.0 mg/dL (8.5-10.1) H 12/16/19 05:30 Total Bilirubin 0.20 mg/dL (0.2-1.0) 12/16/19 05:30 AST 16 Units/L (15-37) 12/16/19 05:30 ALT 14 Units/L (12-78) 12/16/19 05:30 Alkaline Phosphatase 61 Units/L (46-116) 12/16/19 05:30 Creatine Kinase 38 Units/L (26-192) 12/15/19 06:08 CK-MB (CK-2) < 1.0 ng/mL (0-4.0) 12/15/19 06:08 CK/CKMB % Calc 2.6 % (<4) 12/15/19 06:08 Troponin I < 0.02 ng/mL (0-1.5) 12/15/19 06:08 Total Protein 6.7 g/dL (6.4-8.2) 12/16/19 05:30 Albumin 3.0 g/dL (3.4-5.0) L 12/16/19 05:30 Globulin 3.7 g/dL (2.5-4.5) 12/16/19 05:30 Albumin/Globulin Ratio 0.8 Ratio (1.1-2.1) L 12/16/19 05:30 Specimen Type Clean catch urine 12/13/19 17:10 Urine Color Dark yellow (YELLOW) 12/13/19 17:10 Urine Appearance Clear (CLEAR) 12/13/19 17:10 Urine pH 5.0 (5.0 - 8.0) 12/13/19 17:10 Ur Specific [place] 1.030 (1.000-1.030) 12/13/19 17:10 Urine Protein Negative (NEGATIVE) 12/13/19 17:10 Urine Glucose (UA) Negative (NEGATIVE) 12/13/19 17:10 Urine Ketones Negative (NEGATIVE) 12/13/19 17:10 Urine Occult Blood Negative (NEGATIVE) 12/13/19 17:10 Urine Nitrite Negative (NEGATIVE) 12/13/19 17:10 Urine Bilirubin Negative (NEGATIVE) 12/13/19 17:10 Urine Urobilinogen Normal (NORMAL) 12/13/19 17:10 Ur Leukocyte Esterase Negative (NEGATIVE) 12/13/19 17:10 Stool Description 25 grs soft yellow 12/14/19 14:25 Stl Occult Blood (IFOB) Positive (NEGATIVE) A 12/14/19 14:25 - Plan (1) Weakness Status: Acute Plan: REPEAT AM LABS, PT/OT EVALUATION. GENTLE IV HYDRATION, STRICT I&O. PT/OT (2) Frequent falls Status: Acute (3) E. coli UTI Status: Acute Plan: INVANZ 1G IV DAILY, IV FLUIDS, CONTINUE TO MONITOR (4) Acute and chronic respiratory failure Status: Acute Qualifiers: Respiratory failure complication: unspecified whether with hypoxia or hypercapnia Qualified Code(s): J96.20 - Acute and chronic respiratory failure, unspecified whether with hypoxia or hypercapnia (5) CKD (chronic kidney disease) stage 3, GFR 30-59 ml/min Status: Chronic (6) Hyperglycemia due to type 2 diabetes mellitus Status: Chronic Qualifiers: Diabetes mellitus fdc insulin use: with long goods drier use Qualified Code(s): E11.65 - Type 2 diabetes mellitus with hyperglycemia; Z79.4 - exterminator helper (current) use of insulin (7) CAD (coronary artery disease) Status: Chronic Qualifiers: Coronary Disease-Associated Artery/Lesion type: [place] artery [place] vs. transplanted heart: [place] heart Associated angina: with unspecified angina Qualified Code(s): I25.119 - Atherosclerotic heart disease of [place] coronary artery with unspecified angina pectoris (8) COPD (chronic obstructive pulmonary disease) Status: Chronic Qualifiers: COPD type: unspecified COPD Qualified Code(s): J44.9 - Chronic obstructive pulmonary disease, unspecified (9) Degenerative disc disease Status: Chronic Qualifiers: Mid-cervical spinal level: unspecified (10) History of anemia Status: Chronic
[2019-12-16] MEDS: NEURONTIN CAP 300 MG PO SCH ×2 (14:25→21:12)
[2019-12-17] MEDS: DUONEB 0.5 MG/3 MG (3 mL) NEB SCH ×4 (01:15→14:24)
[2019-12-17] MEDS: PERCOCET TAB 5/325 MG PO PRN ×2 (01:31→08:59)
[2019-12-17] MEDS: NEURONTIN CAP 300 MG PO SCH ×2 (05:25→13:57)
[2019-12-17 06:29] LABS: ALANINE AMINOTRANSFERASE 13 Units/L (12-78); ALBUMIN 2.7 g/dL (3.4-5.0); ALKALINE PHOSPHATASE 57 Units/L (46-116); ASPARTATE AMINO TRANSFERASE 15 Units/L (15-37); BLOOD UREA NITROGEN 8 mg/dL (7-18); CALCIUM 9.7 mg/dL (8.5-10.1); CARBON DIOXIDE 27.7 mmol/L (21-32); CHLORIDE 106 mmol/L (98-107); COR CA(FOR HYPOALB) 10.7 mg/dL (8.5-10.1); CREATININE 0.85 mg/dL (0.55-1.02); SODIUM 140 mmol/L (136-145); eGFR NON BLACK RACES > 60 (>60)
[2019-12-17 06:30] LABS: BASOPHILS # (AUTO) 0.1 X10^3/uL (0.0-0.1); BASOPHILS % (AUTO) 0.7 % (0.2-1.0); EOSINOPHILS # (AUTO) 0.3 x10^3/uL (0.0-0.2); HEMATOCRIT 27.8 % (36.0-47.0); HEMOGLOBIN 8.9 g/dL (12.0-16.0); LYMPHOCYTES # (AUTO) 2.4 X10^3/uL (1.3-2.9); LYMPHOCYTES % (AUTO) 31.4 % (21.0-51.0); MEAN CORPUSCULAR HEMOGLOBIN 26.6 pg (27.0-34.0); MEAN CORPUSCULAR HGB CONC 32.1 g/dL (33.0-35.0); MEAN CORPUSCULAR VOLUME 82.8 fL (80.0-100.0); MONOCYTES # (AUTO) 0.6 x10^3/uL (0.3-0.8); MONOCYTES % (AUTO) 7.4 % (0.0-13.0); NEUTROPHILS # (AUTO) 4.4 x10^3/uL (2.2-4.8); NEUTROPHILS % (AUTO) 56.5 % (42.0-75.0); PLATELET COUNT 309 X10^3/uL (150.0-450.0); RED BLOOD COUNT 3.36 X10^6/uL (3.5-5.4); RED CELL DISTRIBUTION WIDTH 13.4 % (11.6-16.5); WHITE BLOOD COUNT 7.8 X10^3/uL (3.6-10.0)
[2019-12-17] MEDS ORDERED: TOPROL XL PO ONE (08:02)
[2019-12-17] MEDS: INVANZ INJ 1 GM VIAL 1 GM in NS 100 ML IV + SPIKE MINIBAG* 100 ML IV SCH (08:19)
[2019-12-17] MEDS: ISOSORBIDE MONONITRATE ER 24-HR PO SCH (08:20)
[2019-12-17] MEDS: SYNTHROID 25 mcg TAB PO SCH (08:20)
[2019-12-17] MEDS: PROTONIX TAB 40 MG PO SCH (08:20)
[2019-12-17] MEDS: TOPROL XL PO SCH (08:20)
[2019-12-17] MEDS: CELEXA PO SCH (08:21)
[2019-12-17] MEDS: ELIQUIS PO SCH (08:21)
[2019-12-17] MEDS: MICRO K EXTEN CAP 10 MEQ PO SCH (08:21)
[2019-12-17] MEDS: CARDIZEM CD 240 MG 24-HR PO SCH (08:21)
[2019-12-17] MEDS: NS 1000 ML 1,000 ML IV SCH (11:19)
[2019-12-17 13:57] VITALS: BP 161/76
== END 2019-12-17 15:00 | DRG 689 ==
LOC: MED/SURG 13:28 → ER 13:28 → MED/SURG 16:23
PROVIDERS: ADMIT Internal Medicine; ATTEND Internal Medicine
DX: I25.119 Atherosclerotic heart disease of native coronary artery with unspecified angina pectoris; R29.6 Repeated falls; E03.8 Other specified hypothyroidism; J96.20 Acute and chronic respiratory failure, unspecified whether with hypoxia or hypercapnia; Z79.4 Long term (current) use of insulin; J44.9 Chronic obstructive pulmonary disease, unspecified; R26.89 Other abnormalities of gait and mobility; N18.3 Chronic kidney disease, stage 3 (moderate); I12.9 Hypertensive chronic kidney disease with stage 1 through stage 4 chronic kidney disease, or unspecified chronic kidney disease; M51.36 Other intervertebral disc degeneration, lumbar region; J20.9 Acute bronchitis, unspecified; Z20.828 Contact with and (suspected) exposure to other viral communicable diseases; N39.0 Urinary tract infection, site not specified; B96.29 Other Escherichia coli [E. coli] as the cause of diseases classified elsewhere; M54.5 Low back pain; E11.65 Type 2 diabetes mellitus with hyperglycemia

== ENCOUNTER 2020-08-25 12:03 | Inpatient (IN) ==
--- NOTE | 2020-08-25 12:23 | DR.GENAD ---
HPI Time Seen Time Seen by Provider: 08/25/20 12:16 PCP Primary Care Physician: RICARDO HPI Comment HPI Comment: PATIENT WITH A HISTORY OF COPD, HAS HAD A PRODUCTIVE COUGH YELLOWS SPUTUM X 2 WEEKS, FREQUENT FALLS FOR 3 WEEKS AND CONFUSION PAST 3-4 DAYS. DENIES CHEST PAIN, FEVER, CHILLS, HEADACHE, NECK PAIN. Complaint/Symptoms Chief Complaint Doctors Comments: FREQUENT FALLS, WEAKNESS Chief Complaint:: FAMILY MEMBER STATES PT. HAS BEEN CONFUSED X 2 DAYS AND HAS BEEN HAVING FREQUENT FALLS AT HOME. PT. C/O CHRONIC PAIN & GENERALIZED WEAKNESS. PT. ALSO STATES SHE RECENTLY HAD A UTI. COVID-19 Coronavirus risk:travel/contact w/high risk person: No Has patient experienced Coronavirus symptoms: No Nurses notes reviewed Nurses Notes Review: Yes Source History Provided: Patient and Family Member Mode of Arrival Mode of Arrival: Wheelchair Timing Onset of Chief Complaint: 08/23/20 Came on: Gradually Duration Duration: Since Onset How lon Duration: Weeks Associated Signs and Symptoms Associated Signs and Symptoms: PRODUCTIVE COUGH, WEAKNESS PMH PMH Past Medical History: Yes Past Medical History: Anxiety, Arthritis, CHF, COPD, Coronary Artery Disease, Depression, Diabetes, Migraines, Hypertension and Hypothyroidism Past Surgical History: Yes Surgical History: Hysterectomy and Other Family History History of Family Medical Conditions: Yes Family Medical History: Diabetes Mellitus, [place] and Hypertension Social History Does patient currently use any type of tobacco product: No Have you used tobacco products in the last 12 months: No Type of Tobacco Use: None Does any household member use tobacco: No Alcohol Use: None Do you use any recreational Drugs:: No Lives With: Family Lives Where: Home Travel Risk Coronavirus risk:travel/contact w/high risk person: No Has patient experienced Coronavirus symptoms: No Infectious screening In the last 2 months have you had wt loss of >10#?: NO Have you had fever, night sweats or hemotysis?: No Have you traveled outside the country in the last 6 months?: No Isolation: Standard ROS Review of Systems Constitutional: See HPI Eyes: No Symptoms Reported ENTM: No Symptoms Reported Respiratoy: Productive Cough Cardiovascular: No Symptoms Reported Gastrointestinal/Abdominal: No Symptoms Reported Genitourinary: No Symptoms Reported Neurological: See HPI, Problems Walking and Other (FREQUENT FALLS) Musculoskeletal: No Symptoms Reported Integumentary: No Symptoms Reported Hematologic/Lymphatic: No Symptoms Reported Endocrine: No Symptoms Reported Psychiatric: No Symptoms Reported All Other Systems: Reviewed and Negative PE Vital Signs Vitals: Temperature 98.2 F Pulse Rate 88 Respiratory Rate 16 Blood Pressure [Left Calf] 172/80 Blood Pressure [Left Arm] 157/88 Blood Pressure 173/79 O2 Sat by Pulse Oximetry 100 General Limitations: No Limitations General Appearance: Alert Head Head Exam: Normal Inspection and Atraumatic Eyes Eye exam: Normal Appearance and PERRL ENT ENT Exam: Normal Exam and Normal Oropharynx External Ear Exam: Normal External Inspection TM/Canal Exam: Bilateral: Normal Nose Exam: Normal Nose Exam Mouth Exam: Normal Inspection Neck Neck Exam: Normal Inspection (NO POSTERIOR CERVICAL VERTEBRAL TENDERNESS) and Full ROM Chest Chest Inspection: Normal Inspection and Symmetric Chest Wall Rise Respiratory Respiratory Exam: Normal Lung Sounds Bilat Respiratory Exam: Bilateral: Clear to Auscultation Cardiovascular Cardiovascular Exam: Regular Rate and Normal Rhythm Abdominal Exam Abdominal Exam: Normal Inspection and Normal Bowel Sounds Back Back Exam: Normal Inspection and Full ROM Neurologic Neurological Exam: Alert and Oriented X3 Psychiatric Psychiatric Exam: Normal Affect and Normal Mood MDM Differential Diagnosis Differential Diagnosis: EXACERBATION COPD, FREQUENT FALLS, GENERALIZED WEAKNESS COURSE Treatment Treatment: IV NORMAL SALINE 50ML/HR, AFTER 2 SETS OF BLOOD CULTURES, ROCEPHIN 1 GM IVBP, DUONEB AERSOL [place] Reevaluation 1st: Unchanged Consultation Call Returned: 14:45 Consultation Comments: DISCUSSED FINDINGS WITH DR SILVA AT 1445 FOR OBSERVATION ROR Labs Reviewed Laboratory Results Reviewed?: Yes Result Diagrams: 08/25/20 13:25 08/25/20 13:25 Laboratory: WBC 11.9 X10^3/uL (3.6-10.0) H 08/25/20 13:25 RBC 3.69 X10^6/uL (3.5-5.4) 08/25/20 13:25 Hgb 10.2 g/dL (12.0-16.0) L 08/25/20 13:25 Hct 32.0 % (36.0-47.0) L 08/25/20 13:25 MCV 86.9 fL (80.0-100.0) 08/25/20 13:25 MCH 27.6 pg (27.0-34.0) 08/25/20 13:25 MCHC 31.8 g/dL (33.0-35.0) L 08/25/20 13:25 RDW 15.2 % (11.6-16.5) 08/25/20 13:25 Plt Count 504 X10^3/uL (150.0-450.0) H 08/25/20 13:25 Plt Count Comment Increased (ADEQUATE) A 08/25/20 13:25 MPV 7.0 fL (7.4-11.0) L 08/25/20 13:25 Neut % (Auto) 62.3 % (42.0-75.0) 08/25/20 13:25 Lymph % (Auto) 22.1 % (21.0-51.0) 08/25/20 13:25 [place] % (Auto) 13.3 % (0.0-13.0) H 08/25/20 13:25 Eos % (Auto) 1.7 % (0.9-2.9) 08/25/20 13:25 Baso % (Auto) 0.6 % (0.2-1.0) 08/25/20 13:25 Neut # (Auto) 7.4 x10^3/uL (2.2-4.8) H 08/25/20 13:25 Lymph # (Auto) 2.6 X10^3/uL (1.3-2.9) 08/25/20 13:25 [place] # (Auto) 1.6 x10^3/uL (0.3-0.8) H 08/25/20 13:25 Eos # (Auto) 0.2 x10^3/uL (0.0-0.2) 08/25/20 13:25 Baso # (Auto) 0.1 X10^3/uL (0.0-0.1) 08/25/20 13:25 Absolute Nucleated RBC 0.2 /100WBC 08/25/20 13:25 Total Counted 100 08/25/20 13:25 Neutrophils % (Manual) 67 % (39-76) 08/25/20 13:25 Band Neutrophils % 6 % (0-10) 08/25/20 13:25 Lymphocytes % (Manual) 11 % (13-43) L 08/25/20 13:25 Monocytes % (Manual) 10 % (4-9) H 08/25/20 13:25 Eosinophils % (Manual) 6 % (0-6) 08/25/20 13:25 Plt Morphology Comment Normal (NORMAL) 08/25/20 13:25 RBC Morphology Abnormal (NORMAL) A 08/25/20 13:25 Hypochromasia Slight A 08/25/20 13:25 Anisocytosis 1+ A 08/25/20 13:25 Sodium 138 mmol/L (136-145) 08/25/20 13:25 Corrected Sodium TNP 08/25/20 13:25 Potassium 3.9 mmol/L (3.5-5.1) 08/25/20 13:25 Chloride 100 mmol/L (98-107) 08/25/20 13:25 Carbon Dioxide 32.8 mmol/L (21-32) H 08/25/20 13:25 BUN 18 mg/dL (7-18) 08/25/20 13:25 Creatinine 0.93 mg/dL (0.55-1.02) 08/25/20 13:25 Est GFR (MDRD) Af Amer > 60 (>60) 08/25/20 13:25 Est GFR (MDRD) Non-Af > 60 (>60) 08/25/20 13:25 Glucose 79 mg/dL (65-99) 08/25/20 13:25 Calcium 8.8 mg/dL (8.5-10.1) 08/25/20 13:25 Corrected Calcium 9.8 mg/dL (8.5-10.1) 08/25/20 13:25 Total Bilirubin 0.20 mg/dL (0.2-1.0) 08/25/20 13:25 AST 25 Units/L (15-37) 08/25/20 13:25 ALT 23 Units/L (12-78) 08/25/20 13:25 Alkaline Phosphatase 73 Units/L (46-116) 08/25/20 13:25 Troponin I 0.06 ng/mL (0-1.5) 08/25/20 13:25 Total Protein 7.0 g/dL (6.4-8.2) 08/25/20 13:25 Albumin 2.8 g/dL (3.4-5.0) L 08/25/20 13:25 Globulin 4.2 g/dL (2.5-4.5) 08/25/20 13:25 Albumin/Globulin Ratio 0.7 Ratio (1.1-2.1) L 08/25/20 13:25 Specimen Type Catherized urine 08/25/20 13:48 Urine Color Yellow (YELLOW) 08/25/20 13:48 Urine Appearance Clear (CLEAR) 08/25/20 13:48 Urine pH 6.0 (5.0 - 8.0) 08/25/20 13:48 Ur Specific [place] 1.020 (1.000-1.030) 08/25/20 13:48 Urine Protein 1+ (NEGATIVE) 08/25/20 13:48 Urine Glucose (UA) Negative (NEGATIVE) 08/25/20 13:48 Urine Ketones Negative (NEGATIVE) 08/25/20 13:48 Urine Occult Blood Negative (NEGATIVE) 08/25/20 13:48 Urine Nitrite Negative (NEGATIVE) 08/25/20 13:48 Urine Bilirubin Negative (NEGATIVE) 08/25/20 13:48 Urine Urobilinogen Normal (NORMAL) 08/25/20 13:48 Ur Leukocyte Esterase 1+ (NEGATIVE) 08/25/20 13:48 Urine RBC 0-2 /HPF (0-3) 08/25/20 13:48 Urine WBC 0-2 /HPF (0-5) 08/25/20 13:48 Ur Squamous Epith Cells Rare /HPF (NEGATIVE) 08/25/20 13:48 Urine Bacteria Trace /HPF (NEGATIVE) 08/25/20 13:48 Urine Mucus Rare /HPF (NEGATIVE) 08/25/20 13:48 Ur Culture Indicated? No/not indicated 08/25/20 13:48 SARS CoV-2 RNA Rapid DURGA Negative (NEGATIVE) 08/25/20 14:50 XRAY X-ray Results: PORTABLE CHEST XRAY - NO ACUTE PROCESS, HEAD CT SCAN CONSISTENT WITH A SUBTLE PARENCHYMAL HYPODENSITY IN THE LEFT BRAINSTEM, WHICH COULD REFLECT A LACUNAR ISCHEMIC EVENT/CVA. OTHERWISE NO INTRACRANIAL HEMORHAGE OR ACUTE INTRACRANIAL PROCESS IDENTIFIED EKG Rate: 73 [place]: Normal Rhythm: NSR Hypertrophy: LAE ST: Nonsp (INFERIOR LAT NO CHANGE FROM EKG 08/06/2020) Opioid Opioid Risk Tool Age (Can box if 16-45): No History of Preadolescent Sexual Abuse: No Total: 0 Total Score Risk Category: Low Risk Copyright: Miko CASIANO predicting aberrant behaviors Diagnosis Discharge Problem: Acute exacerbation of chronic obstructive pulmonary disease, Falls frequently, Generalized weakness
[2020-08-25] MEDS ORDERED: ROCEPHIN 1 GRAM IV PREMIX 1 G/50 ML IV.SOLN. IV ONE ×2 (12:26→12:42)
--- NOTE | 2020-08-25 13:34 | CT ---
HISTORYS/P FALL, CONFUSION, HEMATOMA TO HEAD, NECK PAIN, PRODUCTIVE COUGHNoncontrast head CT examination.Comparison: Head CT examination dated October 03, 2019.Technique:Multiple axial images of the brain were obtained from the skull base to the vertex without administration of IV contrast.Findings: There is moderate sulcal and cisternal prominence as well as atherosclerotic change in the proximal intracranial carotid and vertebral arteries, which is not out of proportion to the patient's stated age. There is diffuse CT density alteration seen in the periventricular white matter of the high and mid-convexity, which is likely in the setting of small vessel disease and not out of proportion to the patient's stated age. There is [mild bilateral ex vacuo] ventricular dilatation without evidence for hydrocephalus or herniation syndrome. No midline shift is evident. No acute intraparenchymal hemorrhage or mass can be identified. If there remains a strong concern for any intra-cranial neoplasm, then follow-up with CT or MR imaging of the brain would be more sensitive to exclude any intra-cranial mass lesion. No extra-axial fluid collections are seen. No alteration in the attenuation of the brain parenchyma can be identified to suggest acute or subacute ischemic change. However, if clinical symptoms are concerning for an acute CVA, then follow-up MRI with DWI sequencing is recommended. The extracranial structures [are unremarkable].IMPRESSION:Subtle parenchymal hypodensity in the left brainstem on image number 10 of series 2 which could reflect a lacunar ischemic event/CVA. This could be best followed up with MR imaging of the brain with diffusion-weighted sequencing for assurance. Otherwise, no intracranial hemorrhage or other acute intracranial process identified.Chronic periventricular white matter microvascular disease. Age-appropriate intra-cranial cerebral senescent changes of advancing age.Electronically signed by: JOHNNY JULIAN III (August 25, 2020 13:31:30)
--- NOTE | 2020-08-25 13:36 | CT ---
HISTORYS/P FALL, CONFUSION, HEMATOMA TO HEAD, NECK PAIN, PRODUCTIVE COUGHSTUDYCT cervical spine without IV contrastCOMPARISONMRI 02/25/2020TECHNIQUEMultiple axial images of the cervical spine were obtained from the skull base to the thoracic inlet without administration of IV contrast. Sagittal and coronal reformats were performed and reviewed. Dose reduction techniques including Automated Exposure Control (AEC) and adjustment of mA and kV were utilized.FINDINGSStraightened lordosis.No subluxation.Bones appear osteopenic. Large anterior cervical osteophytes are seen at C4-5. Calcified disc bulge is seen at C3-4, unchanged from prior MRI. This likely causes cord effacement. Soft tissue detail is limited in the central canal below this level.No prevertebral edema.No C-spine fracture is seen.IMPRESSIONNo C-spine fracture is seen. Chronic disc bulge at C3-4 causes probable cord effacement as seen on prior MRI.Electronically signed by: Lazaro Modi (August 25, 2020 13:34:33)
[2020-08-25 13:58] LABS: BILIRUBIN,URINE NEGATIVE (NEGATIVE); BLOOD/HEMOGLOBIN,URINE NEGATIVE (NEGATIVE); GLUCOSE, URINE NEGATIVE (NEGATIVE); KETONES,URINE NEGATIVE (NEGATIVE); LEUKOCYTE ESTERASE ,URINE 1+ (NEGATIVE); NITRITES,URINE NEGATIVE (NEGATIVE); PROTEIN,URINE 1+ (NEGATIVE); UROBILINOGEN,URINE NORMAL (NORMAL)
--- NOTE | 2020-08-25 14:00 | RAD ---
HISTORYS/P FALL, CONFUSION, HEMATOMA TO HEAD, NECK PAIN, PRODUCTIVE COUGHSTUDYCHEST, 1 VIEWCOMPARISONPortable chest August 06, 2020.FINDINGSThe trachea is midline. The cardiac silhouette is unremarkable . The lungs are clear without focal infiltrate or effusion. Left internal jugular central venous port is in place tip in the superior vena cava. Chronic changes of fibrosis are present in the right upper lobe stable unchanged from August 06, 2020. A reverse right shoulder prosthesis is in place on the right and moderate osteoarthritic changes seen at the left glenohumeral joint. The bony thorax is unremarkable.IMPRESSIONNo acute cardiopulmonary disease but stable chronic lung changes right upper lobe stable postsurgical right shoulder and indwelling left internal jugular central venous port in place..Electronically signed by: KALYN JENSEN (August 25, 2020 13:58:39)
[2020-08-25 14:01] LABS: ALANINE AMINOTRANSFERASE 23 Units/L (12-78); ALBUMIN 2.8 g/dL (3.4-5.0); ALKALINE PHOSPHATASE 73 Units/L (46-116); ASPARTATE AMINO TRANSFERASE 25 Units/L (15-37); BLOOD UREA NITROGEN 18 mg/dL (7-18); CALCIUM 8.8 mg/dL (8.5-10.1); CARBON DIOXIDE 32.8 mmol/L (21-32); CHLORIDE 100 mmol/L (98-107); COR CA(FOR HYPOALB) 9.8 mg/dL (8.5-10.1); CREATININE 0.93 mg/dL (0.55-1.02); SODIUM 138 mmol/L (136-145); TROPONIN I 0.06 ng/mL (0-1.5); eGFR NON BLACK RACES > 60 (>60)
[2020-08-25 14:04] LABS: APPEARANCE,URINE CLEAR (CLEAR); COLOR,URINE YELLOW (YELLOW)
[2020-08-25 14:05] LABS: BACTERIA,URINE TRACE /HPF (NEGATIVE); MUCUS,URINE RARE /HPF (NEGATIVE); RBC,URINE 0-2 /HPF (0-3); SQUAMOUS EPITHELIAL CELL,UR RARE /HPF (NEGATIVE)
[2020-08-25 14:08] LABS: BASOPHILS # (AUTO) 0.1 X10^3/uL (0.0-0.1); BASOPHILS % (AUTO) 0.6 % (0.2-1.0); EOSINOPHILS # (AUTO) 0.2 x10^3/uL (0.0-0.2); EOSINOPHILS % (AUTO) 1.7 % (0.9-2.9); HEMOGLOBIN 10.2 g/dL (12.0-16.0); LYMPHOCYTES # (AUTO) 2.6 X10^3/uL (1.3-2.9); LYMPHOCYTES % (AUTO) 22.1 % (21.0-51.0); MEAN CORPUSCULAR HEMOGLOBIN 27.6 pg (27.0-34.0); MEAN CORPUSCULAR HGB CONC 31.8 g/dL (33.0-35.0); MEAN CORPUSCULAR VOLUME 86.9 fL (80.0-100.0); MONOCYTES # (AUTO) 1.6 x10^3/uL (0.3-0.8); MONOCYTES % (AUTO) 13.3 % (0.0-13.0); NEUTROPHILS # (AUTO) 7.4 x10^3/uL (2.2-4.8); NEUTROPHILS % (AUTO) 62.3 % (42.0-75.0); PLATELET COUNT 504 X10^3/uL (150.0-450.0); RED BLOOD COUNT 3.69 X10^6/uL (3.5-5.4); RED CELL DISTRIBUTION WIDTH 15.2 % (11.6-16.5); WHITE BLOOD COUNT 11.9 X10^3/uL (3.6-10.0)
[2020-08-25 14:23] LABS: ANISOCYTOSIS 1+; BAND NEUTROPHILS % 6 % (0-10); HYPOCHROMASIA SLIGHT; PLATELET MORPHOLOGY COMMENT NORMAL (NORMAL)
[2020-08-25] MEDS ORDERED: PERCOCET TAB 5/325 MG PO STA (14:42)
[2020-08-25] MEDS ORDERED: PERCOCET TAB 5/325 MG ONE (14:54)
--- NOTE | 2020-08-25 16:44 | RAD ---
Left shoulder three viewsIndication: Left shoulder pain after fallFINDINGSThere is moderate acromioclavicular glenohumeral joint DJD. Acromial humeral interval is narrowed suggesting rotator cuff insufficiency. No displaced fracture identified. Port-A-Cath is noted.Patchy left lower lung infiltrate possible.IMPRESSION1. Left shoulder degenerative change without displaced fracture.2. Possible left lower lung infiltrate. Follow-up to resolution.Electronically signed by: KATIE MAURICIO (August 25, 2020 16:43:02)
[2020-08-25] MEDS ORDERED: ROCEPHIN 1 GRAM IV PREMIX 1 G/50 ML IV.SOLN. IV SCH (18:29)
[2020-08-25] MEDS ORDERED: NITROSTAT SL PRN (18:29)
[2020-08-25] MEDS ORDERED: DEMADEX PO PRN (18:29)
[2020-08-25] MEDS: DUONEB 0.5 MG/3 MG (3 mL) NEB SCH ×2 (18:36→21:21)
[2020-08-25] MEDS: ULTRAM PO PRN (20:09)
[2020-08-25] MEDS ORDERED: VENTOLIN or PROAIR HFA IN SCH (21:00)
[2020-08-25] MEDS ORDERED: ZITHROMAX INJ 500 MG VIAL IV ONE (21:19)
[2020-08-25] MEDS: GLUCOPHAGE XR 24-HR PO SCH (22:09)
[2020-08-25] MEDS: ELIQUIS PO SCH (22:10)
[2020-08-25] MEDS: ZITHROMAX INJ 500 MG VIAL 500 MG in NS 250 ML IV 250 ML IV SCH (22:10)
[2020-08-25] MEDS: MICRO K EXTEN CAP 10 MEQ PO SCH (22:10)
[2020-08-25] MEDS: NEURONTIN CAP 300 MG PO SCH (22:10)
[2020-08-25] MEDS: PROTONIX TAB 40 MG PO SCH (22:11)
[2020-08-26] MEDS ORDERED: PROVENTIL NEB TX 0.083% 2.5MG/ 3ML NEB SCH
[2020-08-26] MEDS: DUONEB 0.5 MG/3 MG (3 mL) NEB SCH ×6 (00:40→20:20)
[2020-08-26] MEDS ORDERED: TOPROL XL PO ONE ×2 (02:57→09:42)
[2020-08-26] MEDS: TOPROL XL PO SCH ×2 (03:00→10:04)
[2020-08-26 05:08] VITALS: BMI 26.4
[2020-08-26] MEDS: NEURONTIN CAP 300 MG PO SCH ×3 (05:41→21:38)
[2020-08-26 09:11] LABS: BASOPHILS # (AUTO) 0.1 X10^3/uL (0.0-0.1); BASOPHILS % (AUTO) 1.3 % (0.2-1.0); EOSINOPHILS # (AUTO) 0.1 x10^3/uL (0.0-0.2); EOSINOPHILS % (AUTO) 0.6 % (0.9-2.9); HEMATOCRIT 29.5 % (36.0-47.0); HEMOGLOBIN 9.6 g/dL (12.0-16.0); LYMPHOCYTES # (AUTO) 2.6 X10^3/uL (1.3-2.9); LYMPHOCYTES % (AUTO) 24.9 % (21.0-51.0); MEAN CORPUSCULAR HEMOGLOBIN 28.1 pg (27.0-34.0); MEAN CORPUSCULAR HGB CONC 32.6 g/dL (33.0-35.0); MEAN CORPUSCULAR VOLUME 86.1 fL (80.0-100.0); MEAN PLATELET VOLUME 6.9 fL (7.4-11.0); MONOCYTES # (AUTO) 1.3 x10^3/uL (0.3-0.8); MONOCYTES % (AUTO) 12.7 % (0.0-13.0); NEUTROPHILS # (AUTO) 6.3 x10^3/uL (2.2-4.8); NEUTROPHILS % (AUTO) 60.5 % (42.0-75.0); PLATELET COUNT 475 X10^3/uL (150.0-450.0); RED BLOOD COUNT 3.42 X10^6/uL (3.5-5.4); WHITE BLOOD COUNT 10.3 X10^3/uL (3.6-10.0)
[2020-08-26 09:23] LABS: ALANINE AMINOTRANSFERASE 19 Units/L (12-78); ALBUMIN 2.4 g/dL (3.4-5.0); ALKALINE PHOSPHATASE 67 Units/L (46-116); ASPARTATE AMINO TRANSFERASE 13 Units/L (15-37); BLOOD UREA NITROGEN 11 mg/dL (7-18); CALCIUM 8.6 mg/dL (8.5-10.1); CARBON DIOXIDE 30.6 mmol/L (21-32); COR CA(FOR HYPOALB) 9.9 mg/dL (8.5-10.1); CREATININE 0.85 mg/dL (0.55-1.02); TOTAL PROTEIN 6.3 g/dL (6.4-8.2); eGFR NON BLACK RACES > 60 (>60)
[2020-08-26 09:30] LABS: CHLORIDE 102 mmol/L (98-107); SODIUM 139 mmol/L (136-145)
--- NOTE | 2020-08-26 09:53 | RAD ---
HISTORYSOBSTUDYCHEST x-ray, 1 VIEWCOMPARISONX-ray 08/25/2020FINDINGSPort catheter terminates in the region of the right atrium of the heart, unchanged. Patient is rotated to the right. Heart is likely normal in size. Mild increased interstitial densities in the lungs are similar to prior study and may be chronic interstitial lung disease. No pneumothorax or pleural effusion is seen. Right TSA.IMPRESSIONNo acute cardiopulmonary abnormality is seen.Electronically signed by: Lazaro Modi (August 26, 2020 09:50:54)
[2020-08-26] MEDS: ELIQUIS PO SCH ×2 (10:02→20:27)
[2020-08-26] MEDS: PROTONIX TAB 40 MG PO SCH ×2 (10:02→20:27)
[2020-08-26] MEDS: ROCEPHIN 1 GRAM IV PREMIX 1 G/50 ML IV.SOLN. IV SCH (10:02)
[2020-08-26] MEDS: CELEXA PO SCH (10:02)
[2020-08-26] MEDS: ISOSORBIDE MONONITRATE ER 24-HR PO SCH (10:03)
[2020-08-26] MEDS: ASPIRIN EC 81 MG PO SCH (10:03)
[2020-08-26] MEDS: CARDIZEM CD 240 MG 24-HR PO SCH (10:03)
[2020-08-26] MEDS: MICRO K EXTEN CAP 10 MEQ PO SCH ×2 (10:03→20:27)
[2020-08-26] MEDS: ALDACTONE TAB 25 MG PO SCH (10:03)
[2020-08-26] MEDS: ZAROXOLYN PO SCH (10:03)
[2020-08-26] MEDS: ZITHROMAX INJ 500 MG VIAL 500 MG in NS 250 ML IV 250 ML IV SCH (10:09)
[2020-08-26] MEDS ORDERED: CATAPRES-TTS-1 TD SCH (11:00)
[2020-08-26] MEDS: ULTRAM PO PRN (12:47)
--- NOTE | 2020-08-26 12:57 | MRI ---
HISTORYAMS, FALLS, WEAKNESSSTUDYBRAIN W/O CONCOMPARISONCT brain from 08/25/2020.TECHNIQUEMultiplanar multi-sequence MRI of the brain was obtained utilizing standard departmental protocol. Sagittal and axial T1 weighted images were obtained. Axial T2 and flair weighted images were performed as well. Axial diffusion weighted and ADC trace mapping was performed.FINDINGSMild motion artifact.Diffusion imaging: [Normal, no acute infarct.]Susceptibility weighted imaging: [No abnormal susceptibility artifact.]Brain volume: [Appropriate for age.]Ventricles and basal cisterns: [Normal for age.]Extra-axial spaces: [No extra-axial collection.]Cerebral parynchema: [No mass, hematoma, or mass effect.] Mild amount of T2 and Flair hyperintensities in the supratentorial subcortical and deep white matter. Bilateral chronic basal ganglia and pontine lacunar infarcts.Pituitary and other sagittal midline structures: [Partially empty sella.]Visualized orbits: [Normal.]Paranasal sinuses and mastoid air cells: [Clear.]Bones: [Intact.]Other: [None.]IMPRESSION[No acute intracranial abnormality. Mild chronic small vessel disease and chronic appearing lacunar infarcts in the basal ganglia and christy.]Electronically signed by: Parag Hirsch (August 26, 2020 12:55:54)
[2020-08-26] MEDS: SYNTHROID 25 mcg TAB PO SCH (17:58)
[2020-08-26] MEDS: GLUCOPHAGE XR 24-HR PO SCH (17:59)
[2020-08-26] MEDS: NORCO 5/325 MG TAB PO PRN (20:28)
[2020-08-27] MEDS: DUONEB 0.5 MG/3 MG (3 mL) NEB SCH ×6 (00:15→21:36)
[2020-08-27] MEDS: NEURONTIN CAP 300 MG PO SCH ×3 (05:24→21:09)
[2020-08-27] MEDS: ULTRAM PO PRN ×3 (05:24→16:48)
[2020-08-27 06:43] LABS: ALANINE AMINOTRANSFERASE 20 Units/L (12-78); ALBUMIN 2.5 g/dL (3.4-5.0); ALKALINE PHOSPHATASE 70 Units/L (46-116); ASPARTATE AMINO TRANSFERASE 11 Units/L (15-37); BLOOD UREA NITROGEN 15 mg/dL (7-18); CALCIUM 8.5 mg/dL (8.5-10.1); CARBON DIOXIDE 30.4 mmol/L (21-32); CHLORIDE 102 mmol/L (98-107); COR CA(FOR HYPOALB) 9.7 mg/dL (8.5-10.1); COR NA(FOR HYPERGLY) 141 mmol/L (136-145); CREATININE 0.99 mg/dL (0.55-1.02); SODIUM 140 mmol/L (136-145); TOTAL PROTEIN 6.3 g/dL (6.4-8.2); eGFR NON BLACK RACES 59 (>60)
[2020-08-27 06:47] LABS: BASOPHILS # (AUTO) 0.1 X10^3/uL (0.0-0.1); BASOPHILS % (AUTO) 0.6 % (0.2-1.0); EOSINOPHILS # (AUTO) 0.1 x10^3/uL (0.0-0.2); EOSINOPHILS % (AUTO) 0.7 % (0.9-2.9); HEMATOCRIT 27.9 % (36.0-47.0); HEMOGLOBIN 9.2 g/dL (12.0-16.0); LYMPHOCYTES # (AUTO) 3.3 X10^3/uL (1.3-2.9); LYMPHOCYTES % (AUTO) 28.1 % (21.0-51.0); MEAN CORPUSCULAR HEMOGLOBIN 28.3 pg (27.0-34.0); MEAN CORPUSCULAR HGB CONC 32.9 g/dL (33.0-35.0); MEAN PLATELET VOLUME 7.2 fL (7.4-11.0); MONOCYTES # (AUTO) 1.3 x10^3/uL (0.3-0.8); MONOCYTES % (AUTO) 11.4 % (0.0-13.0); NEUTROPHILS # (AUTO) 6.9 x10^3/uL (2.2-4.8); NEUTROPHILS % (AUTO) 59.2 % (42.0-75.0); PLATELET COUNT 490 X10^3/uL (150.0-450.0); RED BLOOD COUNT 3.24 X10^6/uL (3.5-5.4); RED CELL DISTRIBUTION WIDTH 14.9 % (11.6-16.5); WHITE BLOOD COUNT 11.7 X10^3/uL (3.6-10.0)
[2020-08-27 07:22] LABS: BAND NEUTROPHILS % 6 % (0-10)
[2020-08-27 07:23] LABS: PLATELET MORPHOLOGY COMMENT NORMAL (NORMAL)
[2020-08-27] MEDS ORDERED: TOPROL XL PO ONE (08:09)
[2020-08-27] MEDS ORDERED: HumuLIN R SUBCUT PRN (08:12)
--- NOTE | 2020-08-27 08:22 | DR.H&P ---
H&P - History & Physical for Day of: H&P Date: 08/25/20 - Chief Complaint Chief Complaint: COUGH, SOB, AMS, WEAKNESS, FREQUENT FALLS - History of Present Illness History of Present Illness: IS A 70 YEAR OLD PATIENT OF OURS WHO PRESENTED TO THE ER WITH COMPLAINTS OF PRODUCTIVE COUGH, SHORTNESS OF BREATH, CONFUSION, GENERALIZED WEAKNESS, FREQUENT FALLS, AND LEFT SHOULDER PAIN. SYMPTOMS STARTED APPROXIMATELY TWO WEEKS AGO. CONFUSION AND WEAKNESS HAS WORSENED OVER THE PAST TWO DAYS. PATIENT WAS RECENTLY TREATEED FOR A URINARY TRACT INFECTION. SHE HAS TAKEN MACROBID 100MG BID, KEFLEX 500MG TID. AFTER NO IMPROVEMENT WITH THOSE, SHE WAS GIVEN CIPRO 500MG PO BID AND FLAGYL 500MG PO BID. FAMILY MEMBER DENIES IMPROVEMENT IN SYMPTOMS DESPITE COMPLAINCE WITH MEDICATIONS. ON ARRIVAL TO THE ER, PATIENT IS DISORIENTED. SHE DOES FOLLOW S IMPLE COMMANDS, BUT IS NOT ORIENTED TO PLACE AND TIME. EXAMINATION REVEALED SCATTERED WHEEZING TO BILATERAL LUNGS. ON ARRIVAL, VITALS WERE 98.2-73-17-96%-173/88. LABS WERE OBTAINED. ABNORMAL LAB VALUES INCLUDE THE FOLLOWING: WBC 11.9, HGB 10.2, HCT 32.0, PLT COUNT 504, CARBON DIOXIDE 32.8, ALBUMIN 2.8. URINALYSIS WAS OBTAINED. IT WAS UNREMARKABLE. COVID-[address] WAS OBTAINED AND REVEALED: Subtle parenchymal hypodensity in the left brainstem on image number 10 of series 2 which could reflect a lacunar ischemic event/CVA. This could be best followed up with MR imaging of the brain with diffusion-weighted sequencing for assurance. Otherwise, no intracranial hemorrhage or other acute intracranial process identified. Chronic periventricular white matter microvascular disease. Age-appropriate intra- cranial cerebral senescent changes of advancing age. A C-SPINE CT WAS OBTAINED AND REVEALED: No C-spine fracture is seen. Chronic disc bulge at C3-4 causes probable cord effacement as seen on prior MRI. CHEST XRAY OBTAINED AND REVEALED: No acute cardiopulmonary disease but stable chronic lung changes right upper lobe stable postsurgical right shoulder and indwelling left internal jugular central venous port in place. A SHOULDER XRAY WAS OBTAINED AND REVEALED: 1. Left shoulder degenerative change without displaced fracture. 2. Possible left lower lung infiltrate. Follow-up to resolution. EKG REVEALED: SINUS RHYTHM WITH HR 73. SHE WAS ADMITTED TO THE HOSPITAL FOR FURTHER EVALUATION AND TREATMENT OF CVA, PNEUMONIA, COPD WITH ACUTE BRONCHITIS, AND GENERALIZED WEAKNESS. SHE WAS STARTED ON AZITHROMYCIN 500MG IV DAILY, ROCEPHIN 1G IV DAILY, DUONEBS Q4H, OTBS ACHS, HUMULIN R SLIDING. HER HOME MEDICATIONS WERE RESUMED. WE WILL OBTAIN A BRAIN MRI AND START A CATAPRES 0.1MG/HR TD PATCH. OTHERWISE, WE WILL FOLLOW UP WITH AM LABS AND CHEST XRAY AND CONTINUE TO MONITOR. TIME SPENT ON CLINICAL ASSESSMENT, REVIEWING LABS AND IMAGING, DECISION MAKING, AND DOCUMENTATION GREATER THAN 75 MINUTES. - Past Medical History Past Medical History: Coronary Artery Disease, Hypertension, Diabetes, Depression, Anxiety, Hypothyroidism, COPD, Arthritis, Migraines, CHF Additional Medical History: Congenital Heart Disease, Asthma, Fibroids, Muscle Weakness, Back Pain, Degenerative Disc Disease - Past Surgical History Surgical History: Hysterectomy - Family History Family Medical History: Diabetes Mellitus, [place], Hypertension - Social History Does patient currently use any type of tobacco product: No Have you used tobacco products in the last 12 months: No Type of Tobacco Use: None Does any household member use tobacco: No Alcohol Use: None Drug Use: Prescription Drugs - Medications Home Medications: morphine Allergy (Verified 08/06/20 13:53) rofecoxib [From Vioxx] Allergy (Verified 08/06/20 13:53) - Review of Systems Constitutional: See HPI, Weakness Eyes: No Symptoms Reported ENT: No Symptoms Reported Respiratory: See HPI, Cough, Shortness of Breath, Wheezing Cardiovascular: No Symptoms Reported Gastrointestinal: No Symptoms Reported Genitourinary: No Symptoms Reported Musculoskeletal: Shoulder Pain (LEFT ) Skin: No Symptoms Reported Neurological: See HPI, Weakness, Confusion - Physical Exam Vital Signs: Temperature 98.5 F Pulse Rate [Left Radial] 75 Pulse Rate 81 Respiratory Rate 18 Blood Pressure [Left Calf] 172/80 Blood Pressure [Left Arm] 121/65 Blood Pressure 144/68 O2 Sat by Pulse Oximetry 96 Oriented: Normal Eyes: Normal Ear: Normal Nose: Normal Throat: Normal Respiratory: Wheezes Throughout Cardiovascular: Normal : Normal Auscultation: Bowel Sounds: Normal Palpation: Normal Tenderness: Normal Skin: Normal Musculoskeletal: Normal Psychiatric: Normal Mood Description: Calm Affect: Normal Speech Pattern: Clear - Assessment/Plan (1) Acute exacerbation of chronic obstructive pulmonary disease Status: Acute Plan: ADMIT, SUPPLEMENTAL OXYGEN, AZITHROMYCIN 500MG IV DAILY, ROCEPHIN 1G IV DAILY, DUONEBS Q4H, OTBS ACHS, HUMULIN R SLIDING. (2) Acute bronchitis Qualifiers: Bronchitis organism: unspecified organism Qualified Code(s): J20.9 - Acute bronchitis, unspecified Status: Acute (3) CVA (cerebral vascular accident) Qualifiers: CVA mechanism: unspecified Qualified Code(s): I63.9 - Cerebral infarction, unspecified Status: Suspected Plan: OBTAIN BRAIN MRI (4) Falls frequently Status: Acute (5) Generalized weakness Status: Acute - Allergies Allergies/Adverse Reactions: Allergies Allergy/AdvReac Type Severity Reaction Status Date / Time morphine Allergy Verified 08/06/20 13:53 rofecoxib [From Vioxx] Allergy Verified 08/06/20 13:53
[2020-08-27] MEDS: ZITHROMAX INJ 500 MG VIAL 500 MG in NS 250 ML IV 250 ML IV SCH (08:40)
[2020-08-27] MEDS: ROCEPHIN 1 GRAM IV PREMIX 1 G/50 ML IV.SOLN. IV SCH (08:40)
[2020-08-27] MEDS: MICRO K EXTEN CAP 10 MEQ PO SCH ×2 (08:40→20:40)
[2020-08-27] MEDS: CARDIZEM CD 240 MG 24-HR PO SCH (08:40)
[2020-08-27] MEDS: ALDACTONE TAB 25 MG PO SCH (08:40)
[2020-08-27] MEDS: ISOSORBIDE MONONITRATE ER 24-HR PO SCH (08:41)
[2020-08-27] MEDS: CELEXA PO SCH (08:41)
[2020-08-27] MEDS: ZAROXOLYN PO SCH (08:41)
[2020-08-27] MEDS: TOPROL XL PO SCH (08:41)
[2020-08-27] MEDS: ASPIRIN EC 81 MG PO SCH (08:41)
[2020-08-27] MEDS: PROTONIX TAB 40 MG PO SCH ×2 (08:41→20:40)
[2020-08-27] MEDS: ELIQUIS PO SCH ×2 (08:41→20:40)
--- NOTE | 2020-08-27 10:22 | RAD ---
Chest AP portableIndication: DyspneaComparison August 26, 2020FINDINGSThere is no pneumothorax. Port-A-Cath tip is over the SVC. Monitor leads obscure minimal detail. Heart size is normal. Minimal increased interstitial markings noted. Right shoulder arthroplasty hardware is noted. Left shoulder DJD noted.IMPRESSIONNo acute chest process or change from the prior.Electronically signed by: KATIE MAURICIO (August 27, 2020 10:20:19)
[2020-08-27] MEDS: SYNTHROID 25 mcg TAB PO SCH (16:47)
[2020-08-27] MEDS: GLUCOPHAGE XR 24-HR PO SCH (16:48)
[2020-08-27] MEDS: SNACK - Diabetic Appropriate PO SCH (20:39)
[2020-08-27] MEDS: NORCO 5/325 MG TAB PO PRN (20:40)
[2020-08-27] MEDS: CRESTOR TAB 10 MG PO SCH (20:42)
[2020-08-28] MEDS: DUONEB 0.5 MG/3 MG (3 mL) NEB SCH ×6 (00:29→20:40)
[2020-08-28] MEDS: COLACE CAP 100 MG PO PRN ×2 (04:10→20:17)
[2020-08-28] MEDS: NORCO 5/325 MG TAB PO PRN ×4 (04:20→22:50)
[2020-08-28] MEDS: NEURONTIN CAP 300 MG PO SCH ×3 (05:03→21:04)
[2020-08-28 06:34] LABS: BASOPHILS # (AUTO) 0.1 X10^3/uL (0.0-0.1); BASOPHILS % (AUTO) 0.9 % (0.2-1.0); EOSINOPHILS # (AUTO) 0.1 x10^3/uL (0.0-0.2); EOSINOPHILS % (AUTO) 0.7 % (0.9-2.9); HEMATOCRIT 27.9 % (36.0-47.0); HEMOGLOBIN 9.2 g/dL (12.0-16.0); LYMPHOCYTES # (AUTO) 2.7 X10^3/uL (1.3-2.9); LYMPHOCYTES % (AUTO) 21.4 % (21.0-51.0); MEAN CORPUSCULAR HEMOGLOBIN 27.8 pg (27.0-34.0); MEAN CORPUSCULAR HGB CONC 32.8 g/dL (33.0-35.0); MEAN CORPUSCULAR VOLUME 84.8 fL (80.0-100.0); MEAN PLATELET VOLUME 7.2 fL (7.4-11.0); MONOCYTES # (AUTO) 1.2 x10^3/uL (0.3-0.8); MONOCYTES % (AUTO) 9.5 % (0.0-13.0); NEUTROPHILS # (AUTO) 8.5 x10^3/uL (2.2-4.8); NEUTROPHILS % (AUTO) 67.5 % (42.0-75.0); PLATELET COUNT 509 X10^3/uL (150.0-450.0); RED BLOOD COUNT 3.29 X10^6/uL (3.5-5.4); WHITE BLOOD COUNT 12.6 X10^3/uL (3.6-10.0)
[2020-08-28 06:49] LABS: ALANINE AMINOTRANSFERASE 22 Units/L (12-78); ALBUMIN 2.7 g/dL (3.4-5.0); ALKALINE PHOSPHATASE 82 Units/L (46-116); ASPARTATE AMINO TRANSFERASE 11 Units/L (15-37); BLOOD UREA NITROGEN 15 mg/dL (7-18); CALCIUM 8.5 mg/dL (8.5-10.1); CARBON DIOXIDE 28.3 mmol/L (21-32); CHLORIDE 102 mmol/L (98-107); COR CA(FOR HYPOALB) 9.5 mg/dL (8.5-10.1); COR NA(FOR HYPERGLY) 137 mmol/L (136-145); CREATININE 0.89 mg/dL (0.55-1.02); SODIUM 137 mmol/L (136-145); TOTAL PROTEIN 6.7 g/dL (6.4-8.2); eGFR NON BLACK RACES > 60 (>60)
[2020-08-28] MEDS ORDERED: TOPROL XL PO ONE (08:56)
[2020-08-28] MEDS ORDERED: NS 100 ML IV 100 ML IV ONE (09:41)
[2020-08-28] MEDS: ROCEPHIN 1 GRAM IV PREMIX 1 G/50 ML IV.SOLN. IV SCH (09:52)
[2020-08-28] MEDS: ALDACTONE TAB 25 MG PO SCH (09:53)
[2020-08-28] MEDS: MICRO K EXTEN CAP 10 MEQ PO SCH ×2 (09:54→20:18)
[2020-08-28] MEDS: TOPROL XL PO SCH (09:54)
[2020-08-28] MEDS: CARDIZEM CD 240 MG 24-HR PO SCH (09:54)
[2020-08-28] MEDS: ELIQUIS PO SCH ×2 (09:54→20:17)
[2020-08-28] MEDS: ZAROXOLYN PO SCH (09:55)
[2020-08-28] MEDS: ISOSORBIDE MONONITRATE ER 24-HR PO SCH (09:55)
[2020-08-28] MEDS: PROTONIX TAB 40 MG PO SCH ×2 (09:57→20:17)
[2020-08-28] MEDS: ASPIRIN EC 81 MG PO SCH (09:57)
[2020-08-28] MEDS: CELEXA PO SCH (09:58)
[2020-08-28] MEDS: ZITHROMAX INJ 500 MG VIAL 500 MG in NS 250 ML IV 250 ML IV SCH (10:00)
[2020-08-28] MEDS: GLUCOPHAGE XR 24-HR PO SCH (16:45)
[2020-08-28] MEDS: SYNTHROID 25 mcg TAB PO SCH (16:45)
[2020-08-28] MEDS: CRESTOR TAB 10 MG PO SCH (20:18)
[2020-08-28] MEDS: SNACK - Diabetic Appropriate PO SCH (20:18)
[2020-08-28] MEDS: ULTRAM PO PRN (21:04)
[2020-08-29] MEDS: DUONEB 0.5 MG/3 MG (3 mL) NEB SCH ×6 (00:16→20:31)
[2020-08-29] MEDS: NORCO 5/325 MG TAB PO PRN ×3 (05:00→20:09)
[2020-08-29] MEDS: NEURONTIN CAP 300 MG PO SCH ×3 (05:00→20:59)
[2020-08-29 06:39] LABS: BASOPHILS # (AUTO) 0.1 X10^3/uL (0.0-0.1); BASOPHILS % (AUTO) 0.5 % (0.2-1.0); EOSINOPHILS # (AUTO) 0.1 x10^3/uL (0.0-0.2); EOSINOPHILS % (AUTO) 0.5 % (0.9-2.9); HEMATOCRIT 28.9 % (36.0-47.0); HEMOGLOBIN 9.3 g/dL (12.0-16.0); MEAN CORPUSCULAR HEMOGLOBIN 27.5 pg (27.0-34.0); MEAN CORPUSCULAR HGB CONC 32.3 g/dL (33.0-35.0); MEAN CORPUSCULAR VOLUME 85.2 fL (80.0-100.0); MEAN PLATELET VOLUME 7.2 fL (7.4-11.0); MONOCYTES % (AUTO) 7.7 % (0.0-13.0); NEUTROPHILS # (AUTO) 8.4 x10^3/uL (2.2-4.8); NEUTROPHILS % (AUTO) 67.3 % (42.0-75.0); PLATELET COUNT 489 X10^3/uL (150.0-450.0); RED BLOOD COUNT 3.39 X10^6/uL (3.5-5.4); RED CELL DISTRIBUTION WIDTH 15.1 % (11.6-16.5); WHITE BLOOD COUNT 12.5 X10^3/uL (3.6-10.0)
[2020-08-29 06:51] LABS: ALANINE AMINOTRANSFERASE 25 Units/L (12-78); ALBUMIN 2.8 g/dL (3.4-5.0); ALKALINE PHOSPHATASE 92 Units/L (46-116); ASPARTATE AMINO TRANSFERASE 15 Units/L (15-37); BLOOD UREA NITROGEN 16 mg/dL (7-18); CARBON DIOXIDE 27.8 mmol/L (21-32); CHLORIDE 102 mmol/L (98-107); COR NA(FOR HYPERGLY) 139 mmol/L (136-145); CREATININE 0.88 mg/dL (0.55-1.02); SODIUM 138 mmol/L (136-145); eGFR NON BLACK RACES > 60 (>60)
[2020-08-29] MEDS ORDERED: TOPROL XL PO ONE (07:34)
[2020-08-29] MEDS ORDERED: NS 100 ML IV 100 ML IV ONE (09:18)
[2020-08-29] MEDS: ROCEPHIN 1 GRAM IV PREMIX 1 G/50 ML IV.SOLN. IV SCH (09:27)
[2020-08-29] MEDS: ZITHROMAX INJ 500 MG VIAL 500 MG in NS 250 ML IV 250 ML IV SCH (09:27)
[2020-08-29] MEDS: ALDACTONE TAB 25 MG PO SCH (09:28)
[2020-08-29] MEDS: CARDIZEM CD 240 MG 24-HR PO SCH (09:28)
[2020-08-29] MEDS: ZAROXOLYN PO SCH (09:28)
[2020-08-29] MEDS: TOPROL XL PO SCH (09:29)
[2020-08-29] MEDS: PROTONIX TAB 40 MG PO SCH ×2 (09:29→20:08)
[2020-08-29] MEDS: MICRO K EXTEN CAP 10 MEQ PO SCH ×2 (09:30→20:07)
[2020-08-29] MEDS: ELIQUIS PO SCH ×2 (09:30→20:07)
[2020-08-29] MEDS: ISOSORBIDE MONONITRATE ER 24-HR PO SCH (09:30)
[2020-08-29] MEDS: CELEXA PO SCH (09:30)
[2020-08-29] MEDS: ASPIRIN EC 81 MG PO SCH (09:31)
[2020-08-29] MEDS: ULTRAM PO PRN (10:45)
[2020-08-29] MEDS: SYNTHROID 25 mcg TAB PO SCH (17:00)
[2020-08-29] MEDS: GLUCOPHAGE XR 24-HR PO SCH (17:50)
[2020-08-29] MEDS: COLACE CAP 100 MG PO PRN (20:07)
[2020-08-29] MEDS: CRESTOR TAB 10 MG PO SCH (20:07)
[2020-08-29] MEDS: SNACK - Diabetic Appropriate PO SCH (20:08)
[2020-08-30] MEDS: DUONEB 0.5 MG/3 MG (3 mL) NEB SCH ×4 (00:43→12:15)
[2020-08-30] MEDS: NEURONTIN CAP 300 MG PO SCH ×2 (05:24→14:24)
[2020-08-30] MEDS: NORCO 5/325 MG TAB PO PRN (05:24)
[2020-08-30 06:10] LABS: BASOPHILS # (AUTO) 0.1 X10^3/uL (0.0-0.1); BASOPHILS % (AUTO) 0.9 % (0.2-1.0); EOSINOPHILS # (AUTO) 0.1 x10^3/uL (0.0-0.2); EOSINOPHILS % (AUTO) 0.5 % (0.9-2.9); HEMATOCRIT 27.4 % (36.0-47.0); LYMPHOCYTES # (AUTO) 2.8 X10^3/uL (1.3-2.9); LYMPHOCYTES % (AUTO) 22.4 % (21.0-51.0); MEAN CORPUSCULAR HEMOGLOBIN 28.1 pg (27.0-34.0); MEAN CORPUSCULAR HGB CONC 32.8 g/dL (33.0-35.0); MEAN CORPUSCULAR VOLUME 85.9 fL (80.0-100.0); MEAN PLATELET VOLUME 7.1 fL (7.4-11.0); MONOCYTES # (AUTO) 1.1 x10^3/uL (0.3-0.8); MONOCYTES % (AUTO) 8.5 % (0.0-13.0); NEUTROPHILS # (AUTO) 8.5 x10^3/uL (2.2-4.8); NEUTROPHILS % (AUTO) 67.7 % (42.0-75.0); PLATELET COUNT 454 X10^3/uL (150.0-450.0); RED BLOOD COUNT 3.19 X10^6/uL (3.5-5.4); RED CELL DISTRIBUTION WIDTH 15.1 % (11.6-16.5); WHITE BLOOD COUNT 12.5 X10^3/uL (3.6-10.0)
[2020-08-30 06:21] LABS: ALANINE AMINOTRANSFERASE 25 Units/L (12-78); ALBUMIN 2.7 g/dL (3.4-5.0); ALKALINE PHOSPHATASE 90 Units/L (46-116); ASPARTATE AMINO TRANSFERASE 14 Units/L (15-37); BLOOD UREA NITROGEN 17 mg/dL (7-18); CALCIUM 8.6 mg/dL (8.5-10.1); CARBON DIOXIDE 25.6 mmol/L (21-32); CHLORIDE 105 mmol/L (98-107); COR CA(FOR HYPOALB) 9.6 mg/dL (8.5-10.1); CREATININE 0.94 mg/dL (0.55-1.02); SODIUM 139 mmol/L (136-145); TOTAL PROTEIN 6.7 g/dL (6.4-8.2); eGFR NON BLACK RACES > 60 (>60)
[2020-08-30 08:09] VITALS: BP 136/63
[2020-08-30] MEDS ORDERED: TOPROL XL PO ONE (09:03)
[2020-08-30] MEDS: ROCEPHIN 1 GRAM IV PREMIX 1 G/50 ML IV.SOLN. IV SCH (09:17)
[2020-08-30] MEDS: PROTONIX TAB 40 MG PO SCH (09:20)
[2020-08-30] MEDS: MICRO K EXTEN CAP 10 MEQ PO SCH (09:21)
[2020-08-30] MEDS: ZAROXOLYN PO SCH (09:21)
[2020-08-30] MEDS: ELIQUIS PO SCH (09:21)
[2020-08-30] MEDS: CARDIZEM CD 240 MG 24-HR PO SCH (09:22)
[2020-08-30] MEDS: ASPIRIN EC 81 MG PO SCH (09:22)
[2020-08-30] MEDS: ISOSORBIDE MONONITRATE ER 24-HR PO SCH (09:23)
[2020-08-30] MEDS: TOPROL XL PO SCH (09:23)
[2020-08-30] MEDS: CELEXA PO SCH (09:23)
[2020-08-30] MEDS: ALDACTONE TAB 25 MG PO SCH (09:23)
[2020-08-30] MEDS: ZITHROMAX INJ 500 MG VIAL 500 MG in NS 250 ML IV 250 ML IV SCH (10:00)
--- NOTE | 2020-08-30 10:47 | RAD ---
HISTORYSOBSTUDYCHEST, 1 [id number]/14/2021.TECHNIQUEAP view of the chestFINDINGSReverse right total shoulder arthroplasty noted. Left chest wall port with tip in stable position. Cardiac and mediastinal contours are within normal limits. No consolidation or segmental lung collapse. No definite pleural effusion or pneumothorax. Soft tissue attenuation limits evaluation.IMPRESSIONNo acute pulmonary process.Electronically signed by: Parag Hirsch (August 30, 2020 10:44:44)
--- NOTE | 2020-08-30 11:23 | PCM.PROG ---
Progress Note - Progress Note for Day of Date of Exam: 08/27/20 - Subjective Subjective: WAS ADMITTED FOR FOR EXACERBATION OF COPD, ACUTE BRONCHITIS, SUSPECTED CVA, FREQUENT FALLS, AND GENERALIZED WEAKNESS. 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 TODAY, SHE IS ALERT AND ORIENTED, LYING IN BED ON MORNING ROUNDS. SHE CONTINUES WITH COMPLAINTS OF COUGH, SHORTNESS OF BREATH, AND WEAKNESS. SHE ALSO CONTINUES WITH COMPLAINTS OF LEFT SHOULDER PAIN SINCE FALLING. ON EXAMINATION, HEART IS REGUALR IN RATE AND RHYTHM. BILATERAL LUNGS ARE NOTED WITH SCATTERED WHEEZING THROUGHOUT. ABDOMEN IS ROUND, SOFT, AND NON- TENDER WITH NORMAL BOWEL SOUNDS NOTED IN ALL QUADRANTS. HER VITALS THIS MORNING ARE: 98.3-86-20-95%-154/83. LABS WERE OBTAINED. ABNORMAL LAB VALUES INCLUDE THE FOLLOWING: WBC 11.7, RBC 3.24, HGB 9.2, HCT 27.9, PLT COUNT 490, GLUCOSE 131, AST 11, TOTAL PROTEIN 6.3, ALBUMIN 2.5. BLOOD CULTURES ARE PENDING. A CHEST XRAY WAS OBTAINED AND REVEALED: There is no pneumothorax. Port-A-Cath tip is over the SVC. Monitor leads obscure minimal detail. Heart size is normal. Minimal increased interstitial markings noted. Right shoulder arthroplasty hardware is noted. Left shoulder DJD noted. SHE IS CURRENTLY RECEIVING AZITHROMYCIN 500MG IV DAILY, ROCEPHIN 1G IV DAILY, CATAPRES 0.1MG/HR TD PATCH, DUONEBS Q4H, OTBS ACHS, HUMULIN R SLIDING. HER HOME MEDICATIONS WERE RESUMED. TODAY, WE WILL ADD ECOTRIN 81MG PO DAILY, AND ROSUVASTATIN 10MG PO HS. OTHERWISE, WE PLAN TO FOLLOW UP WITH AM LABS AND CHEST XRAY AND CONTINUE TO MONITOR. PHYSICAL THERAPY WILL CONTINUE TO WORK WITH PATIENT. TIME SPENT ON CLINICAL ASSESSMENT, REVIEWING LABS AND IMAGING, DECISION MAKING, AND DOCUMENTATION GREATER THAN 45 MINUTES. - Past Medical Family Social History Past Med/Fam/Surg Hx: No changes since H&P Allergies: Allergies morphine Allergy (Verified 08/06/20 13:53) rofecoxib [From Vioxx] Allergy (Verified 08/06/20 13:53) - Review of Systems ROS: No change since H&P - Vital Signs and I&O's Vital Signs: Temperature 98.9 F Pulse Rate [Left Radial] 96 Pulse Rate 81 Respiratory Rate 20 Blood Pressure [Left Calf] 172/80 Blood Pressure [Left Arm] 136/63 Blood Pressure 144/68 O2 Sat by Pulse Oximetry 97 Intake and Output: Intake & Output 08/27/20 08/28/20 08/29/20 08/30/20 11:59 11:59 11:59 11:59 Intake Total 1011 / 1011 1120 / 1120 1300 / 1300 1390 / 1390 Balance 1011 / 1011 1120 / 1120 1300 / 1300 1390 / 1390 - Physical Exam Oriented: Normal Eyes: Normal Ear: Normal Nose: Normal Throat: Normal Respiratory: Generalized, Diminished, Wheezes Cardiovascular: Normal : Normal Auscultation: Bowel Sounds: Normal Palpation: Normal Tenderness: Normal Skin: Normal Musculoskeletal: Normal Psychiatric: Normal Mood Description: Calm Affect: Normal Speech Pattern: Clear, Appropriate - Laboratory and Diagnostics Result Diagrams: 08/30/20 05:25 08/30/20 05:25 Labs: 08/25/20 13:14 Blood Blood Culture - Preliminary 08/25/20 13:57 Blood Blood Culture - Preliminary Laboratory WBC 12.5 X10^3/uL (3.6-10.0) H 08/30/20 05:25 RBC 3.19 X10^6/uL (3.5-5.4) L 08/30/20 05:25 Hgb 9.0 g/dL (12.0-16.0) L 08/30/20 05:25 Hct 27.4 % (36.0-47.0) L 08/30/20 05:25 MCV 85.9 fL (80.0-100.0) 08/30/20 05:25 MCH 28.1 pg (27.0-34.0) 08/30/20 05:25 MCHC 32.8 g/dL (33.0-35.0) L 08/30/20 05:25 RDW 15.1 % (11.6-16.5) 08/30/20 05:25 Plt Count 454 X10^3/uL (150.0-450.0) H 08/30/20 05:25 Plt Count Comment Increased (ADEQUATE) A 08/27/20 05:39 MPV 7.1 fL (7.4-11.0) L 08/30/20 05:25 Neut % (Auto) 67.7 % (42.0-75.0) 08/30/20 05:25 Lymph % (Auto) 22.4 % (21.0-51.0) 08/30/20 05:25 [place] % (Auto) 8.5 % (0.0-13.0) 08/30/20 05:25 Eos % (Auto) 0.5 % (0.9-2.9) L 08/30/20 05:25 Baso % (Auto) 0.9 % (0.2-1.0) 08/30/20 05:25 Neut # (Auto) 8.5 x10^3/uL (2.2-4.8) H 08/30/20 05:25 Lymph # (Auto) 2.8 X10^3/uL (1.3-2.9) 08/30/20 05:25 [place] # (Auto) 1.1 x10^3/uL (0.3-0.8) H 08/30/20 05:25 Eos # (Auto) 0.1 x10^3/uL (0.0-0.2) 08/30/20 05:25 Baso # (Auto) 0.1 X10^3/uL (0.0-0.1) 08/30/20 05:25 Absolute Nucleated RBC 0.3 /100WBC 08/30/20 05:25 Total Counted 100 08/27/20 05:39 Neutrophils % (Manual) 45 % (39-76) 08/27/20 05:39 Band Neutrophils % 6 % (0-10) 08/27/20 05:39 Lymphocytes % (Manual) 31 % (13-43) 08/27/20 05:39 Monocytes % (Manual) 16 % (4-9) H 08/27/20 05:39 Eosinophils % (Manual) 2 % (0-6) 08/27/20 05:39 Plt Morphology Comment Normal (NORMAL) 08/27/20 05:39 RBC Morphology Normal (NORMAL) 08/27/20 05:39 Hypochromasia Slight A 08/25/20 13:25 Anisocytosis 1+ A 08/25/20 13:25 Sodium 139 mmol/L (136-145) 08/30/20 05:25 Corrected Sodium TNP 08/30/20 05:25 Potassium 4.4 mmol/L (3.5-5.1) 08/30/20 05:25 Chloride 105 mmol/L (98-107) 08/30/20 05:25 Carbon Dioxide 25.6 mmol/L (21-32) 08/30/20 05:25 BUN 17 mg/dL (7-18) 08/30/20 05:25 Creatinine 0.94 mg/dL (0.55-1.02) 08/30/20 05:25 Est GFR (MDRD) Af Amer > 60 (>60) 08/30/20 05:25 Est GFR (MDRD) Non-Af > 60 (>60) 08/30/20 05:25 Glucose 104 mg/dL (65-99) H 08/30/20 05:25 POC Glucose (mg/dL) 101 mg/dL (65-99) H 08/30/20 05:36 Calcium 8.6 mg/dL (8.5-10.1) 08/30/20 05:25 Corrected Calcium 9.6 mg/dL (8.5-10.1) 08/30/20 05:25 Iron 60 ug/dL (50-175) 08/28/20 06:10 Transferrin 223 mg/dL (202-364) 08/28/20 06:10 Ferritin 81 ng/mL (8-252) 08/28/20 06:10 Total Bilirubin 0.20 mg/dL (0.2-1.0) 08/30/20 05:25 AST 14 Units/L (15-37) L 08/30/20 05:25 ALT 25 Units/L (12-78) 08/30/20 05:25 Alkaline Phosphatase 90 Units/L (46-116) 08/30/20 05:25 Troponin I 0.06 ng/mL (0-1.5) 08/25/20 13:25 Total Protein 6.7 g/dL (6.4-8.2) 08/30/20 05:25 Albumin 2.7 g/dL (3.4-5.0) L 08/30/20 05:25 Globulin 4.0 g/dL (2.5-4.5) 08/30/20 05:25 Albumin/Globulin Ratio 0.7 Ratio (1.1-2.1) L 08/30/20 05:25 Vitamin B12 463 pg/mL (193-986) 08/28/20 06:10 Folate 15.1 ng/mL (>8.6) 08/28/20 06:10 Specimen Type Catherized urine 08/25/20 13:48 Urine Color Yellow (YELLOW) 08/25/20 13:48 Urine Appearance Clear (CLEAR) 08/25/20 13:48 Urine pH 6.0 (5.0 - 8.0) 08/25/20 13:48 Ur Specific [place] 1.020 (1.000-1.030) 08/25/20 13:48 Urine Protein 1+ (NEGATIVE) 08/25/20 13:48 Urine Glucose (UA) Negative (NEGATIVE) 08/25/20 13:48 Urine Ketones Negative (NEGATIVE) 08/25/20 13:48 Urine Occult Blood Negative (NEGATIVE) 08/25/20 13:48 Urine Nitrite Negative (NEGATIVE) 08/25/20 13:48 Urine Bilirubin Negative (NEGATIVE) 08/25/20 13:48 Urine Urobilinogen Normal (NORMAL) 08/25/20 13:48 Ur Leukocyte Esterase 1+ (NEGATIVE) 08/25/20 13:48 Urine RBC 0-2 /HPF (0-3) 08/25/20 13:48 Urine WBC 0-2 /HPF (0-5) 08/25/20 13:48 Ur Squamous Epith Cells Rare /HPF (NEGATIVE) 08/25/20 13:48 Urine Bacteria Trace /HPF (NEGATIVE) 08/25/20 13:48 Urine Mucus Rare /HPF (NEGATIVE) 08/25/20 13:48 Ur Culture Indicated? No/not indicated 08/25/20 13:48 SARS CoV-2 RNA Rapid DURGA Negative (NEGATIVE) 08/25/20 14:50 - Plan (1) Acute exacerbation of chronic obstructive pulmonary disease Status: Acute Plan: SUPPLEMENTAL OXYGEN, AZITHROMYCIN 500MG IV DAILY, ROCEPHIN 1G IV DAILY, DUONEBS Q4H, OTBS ACHS, HUMULIN R SLIDING. (2) Acute bronchitis Status: Acute Qualifiers: Bronchitis organism: unspecified organism Qualified Code(s): J20.9 - Acute bronchitis, unspecified (3) CVA (cerebral vascular accident) Status: Suspected Qualifiers: CVA mechanism: unspecified Qualified Code(s): I63.9 - Cerebral infarction, unspecified Plan: OBTAIN BRAIN MRI (4) Falls frequently Status: Acute (5) Generalized weakness Status: Acute
--- NOTE | 2020-08-30 13:07 | MRI ---
MR left shoulder without contrastIndication: History of pain after fall. Muscle spasmsTECHNIQUEMultiplanar multisequence imaging through the left shoulder without contrastCOMPARISONMay 2020 radiographFINDINGSThere is os acromiale with DJD at the synchondrosis and fairly advanced DJD at the AC joint. This shows downsloping of the 8 acromion, with narrowing of the acromial humeral interval and sagittal image 6. Advanced muscle belly atrophy of the supraspinatus, infraspinatus and probably sub scapularis suspected.There is joint effusion, freely communicating with the subacromial/subdeltoid bursa in the degenerated AC joint with synovitis.There is massive tear of the superior rotator cuff and infraspinatus with retraction to the glenohumeral joint.Motion artifact limits sensitivity significantly. Sub scapularis is torn and retracted to the glenohumeral joint as well on axial image 12. Circumferential fraying and tearing of the glenoid labrum noted, with complete full-thickness glenohumeral cartilage loss. Intra-articular biceps tendon is not seen.T1 weighted bone marrow signal is normal. Neurovascular structures are normal.IMPRESSION1. Full-thickness massive rotator cuff tear of the supraspinatus infraspinatus and sub scapularis, with muscle belly atrophy and retraction.2. AC joint DJD, degenerated os acromiale, narrowed acromial humeral interval, subacromial/subdeltoid bursitis and glenohumeral joint effusion, all freely communicating and glenohumeral joint DJD with full-thickness cartilage loss.3. Chronic circumferential fraying and tearing of the glenoid labrum. Presumably torn and retracted biceps tendon, not convincingly identified.4. Study is significantly motion artifact limited.Electronically signed by: KATIE MAURICIO (August 30, 2020 13:04:52)
== END 2020-08-30 16:10 | disposition home or self-care (01) | DRG 65 ==
LOC: ER 12:03 → MED/SURG 12:03 → OBSVTOIN 15:57 → MED/SURG 16:28
PROVIDERS: ADMIT Internal Medicine; ATTEND Internal Medicine
DX: R06.02 Shortness of breath; E11.65 Type 2 diabetes mellitus with hyperglycemia; Z91.81 History of falling; I25.10 Atherosclerotic heart disease of native coronary artery without angina pectoris; M25.512 Pain in left shoulder; E03.8 Other specified hypothyroidism; I63.89 Other cerebral infarction; I10 Essential (primary) hypertension; R53.1 Weakness; R29.6 Repeated falls; M54.2 Cervicalgia; J44.1 Chronic obstructive pulmonary disease with (acute) exacerbation; J20.8 Acute bronchitis due to other specified organisms

== ENCOUNTER 2021-02-03 16:26 | Inpatient (IN) ==
[2021-02-03] MEDS: SNACK - Diabetic Appropriate PO SCH (20:20)
[2021-02-03] MEDS: SOLU-Medrol 40 MG VIAL IVP SCH ×2 (20:20→22:43)
[2021-02-03] MEDS: NS 1000 ML 1,000 ML IV SCH (20:30)
[2021-02-03 20:49] VITALS: BMI 26.2
[2021-02-03] MEDS ORDERED: FLUZONE II4 or AFLURIA II4 IM ONE (20:49)
[2021-02-03] MEDS ORDERED: LEVAQUIN PREMIX IV 500 MG 500 MG/100 ML BAG IV ONE (21:00)
[2021-02-03 21:04] LABS: BASOPHILS # (AUTO) 0.1 X10^3/uL (0.0-0.1); BASOPHILS % (AUTO) 0.7 % (0.2-1.0); EOSINOPHILS # (AUTO) 0.2 x10^3/uL (0.0-0.2); EOSINOPHILS % (AUTO) 2.2 % (0.9-2.9); HEMATOCRIT 33.6 % (36.0-47.0); HEMOGLOBIN 10.8 g/dL (12.0-16.0); LYMPHOCYTES # (AUTO) 2.6 X10^3/uL (1.3-2.9); LYMPHOCYTES % (AUTO) 24.6 % (21.0-51.0); MEAN CORPUSCULAR HEMOGLOBIN 27.3 pg (27.0-34.0); MEAN CORPUSCULAR HGB CONC 32.1 g/dL (33.0-35.0); MEAN PLATELET VOLUME 6.8 fL (7.4-11.0); MONOCYTES % (AUTO) 9.8 % (0.0-13.0); NEUTROPHILS # (AUTO) 6.7 x10^3/uL (2.2-4.8); NEUTROPHILS % (AUTO) 62.7 % (42.0-75.0); PLATELET COUNT 394 X10^3/uL (150.0-450.0); RED BLOOD COUNT 3.95 X10^6/uL (3.5-5.4); RED CELL DISTRIBUTION WIDTH 18.6 % (11.6-16.5); WHITE BLOOD COUNT 10.7 X10^3/uL (3.6-10.0)
[2021-02-03] MEDS: DUONEB 0.5 MG/3 MG (3 mL) NEB SCH (21:14)
[2021-02-03] MEDS: PULMICORT NEB TX 0.5 MG NEB SCH ×2 (21:14→22:08)
[2021-02-03 21:16] LABS: ALANINE AMINOTRANSFERASE 26 Units/L (12-78); ALBUMIN 3.5 g/dL (3.4-5.0); ALKALINE PHOSPHATASE 96 Units/L (46-116); ASPARTATE AMINO TRANSFERASE 23 Units/L (15-37); BLOOD UREA NITROGEN 29 mg/dL (7-18); CALCIUM 9.1 mg/dL (8.5-10.1); CARBON DIOXIDE 24.5 mmol/L (21-32); CHLORIDE 104 mmol/L (98-107); CREATININE 1.24 mg/dL (0.55-1.02); SODIUM 140 mmol/L (136-145); TOTAL PROTEIN 7.7 g/dL (6.4-8.2); eGFR NON BLACK RACES 45 (>60)
[2021-02-03] MEDS: ULTRAM PO PRN (23:00)
[2021-02-04] MEDS: SOLU-Medrol 40 MG VIAL IVP SCH ×3 (05:28→21:06)
[2021-02-04] MEDS: ULTRAM PO PRN (05:30)
--- NOTE | 2021-02-04 05:57 | RAD ---
HISTORYCOPDSTUDYCHEST, 1 [id number]/2021FINDINGSThe trachea is midline. Left Port-A-Cath tip in right atrium unchanged. The cardiac silhouette is unremarkable . The lungs are clear without focal infiltrate or effusion. Pulmonary vasculature within normal limits. No pneumothorax. The bony thorax is unremarkable.IMPRESSIONNo acute cardiopulmonary disease.Electronically signed by: Luis A Mayers (Feb 04, 2021 05:55:32)
[2021-02-04 06:10] LABS: BASOPHILS % (AUTO) 0.1 % (0.2-1.0); HEMATOCRIT 28.2 % (36.0-47.0); HEMOGLOBIN 9.1 g/dL (12.0-16.0); LYMPHOCYTES % (AUTO) 10.4 % (21.0-51.0); MEAN CORPUSCULAR HEMOGLOBIN 27.1 pg (27.0-34.0); MEAN CORPUSCULAR HGB CONC 32.3 g/dL (33.0-35.0); MEAN CORPUSCULAR VOLUME 83.9 fL (80.0-100.0); MEAN PLATELET VOLUME 6.9 fL (7.4-11.0); MONOCYTES # (AUTO) 0.1 x10^3/uL (0.3-0.8); MONOCYTES % (AUTO) 1.2 % (0.0-13.0); NEUTROPHILS # (AUTO) 8.2 x10^3/uL (2.2-4.8); NEUTROPHILS % (AUTO) 88.3 % (42.0-75.0); PLATELET COUNT 354 X10^3/uL (150.0-450.0); RED BLOOD COUNT 3.36 X10^6/uL (3.5-5.4); WHITE BLOOD COUNT 9.3 X10^3/uL (3.6-10.0)
[2021-02-04 06:20] LABS: ALANINE AMINOTRANSFERASE 23 Units/L (12-78); ALBUMIN 2.8 g/dL (3.4-5.0); ALKALINE PHOSPHATASE 78 Units/L (46-116); ASPARTATE AMINO TRANSFERASE 15 Units/L (15-37); BLOOD UREA NITROGEN 27 mg/dL (7-18); CALCIUM 8.4 mg/dL (8.5-10.1); CARBON DIOXIDE 22.8 mmol/L (21-32); CHLORIDE 107 mmol/L (98-107); COR CA(FOR HYPOALB) 9.4 mg/dL (8.5-10.1); COR NA(FOR HYPERGLY) 141 mmol/L (136-145); CREATININE 1.07 mg/dL (0.55-1.02); SODIUM 140 mmol/L (136-145); TOTAL PROTEIN 6.5 g/dL (6.4-8.2); eGFR NON BLACK RACES 54 (>60)
[2021-02-04] MEDS: PULMICORT NEB TX 0.5 MG NEB SCH ×2 (08:40→21:30)
[2021-02-04] MEDS: DUONEB 0.5 MG/3 MG (3 mL) NEB SCH ×4 (08:40→21:30)
--- NOTE | 2021-02-04 10:06 | DR.H&P ---
H&P - History & Physical for Day of: H&P Date: 02/03/21 - Chief Complaint Chief Complaint: COUGH, SHORTNESS OF BREATH, WEAKNESS, FALLS - History of Present Illness History of Present Illness: IS A 70 YEAR OLD PATIENT OF OURS WHO HAS BEEN FOLLOWED IN THE OFFICE FOR PRODUCTIVE COUGH, SHORTNESS OF BREATH, GENERALIZED WEAKNESS, AND FREQUENT FALLS. SYMPTOMS STARTED APPROXIMATELY TWO WEEKS AGO. SHE HAS BEEN TAKING LEVAQUIN 500MG PO DAILY FOR THE PAST WEEK FOR TREATMENT OF COPD WITH ACUTE BRONCHITIS. FAMILY MEMBER DENIES IMPROVEMENT IN SYMPTOMS DESPITE COMPLAINCE WITH MEDICATIONS. AUSCULTATION OF LUNG MEDINA REVEALED SCATTERED WHEEZING. HER PMH INCLUDES: CAD, [place], HYPERTENSION, COPD, GERD, UTIs, DM II, ANXIETY, DEPRESSION, CHOLECYSTECTOMY, HYSTERECTOMY, RIGHT HIP REPLACEMENT, RIGHT SHOULDER REPLACEMENT. SHE WAS ADMITTED TO THE HOSPITAL FOR FURTHER EVALUATION AND TREATMENT. ON ARRIVAL TO THE HOSPITAL, VITALS WERE 98.6-62-22-96%-171/81. LABS WERE OBTAINED. ABNORMAL LAB VALUES INCLUDE THE FOLLOWING: WBC 10.7, HGB 10.8, HCT 33.6, BUN 29, CREATININE 1.24, TOTAL BILI 0.10. A CHEST XRAY WAS OBTAINED. SHE WAS STARTED ON NORMAL SALINE AT 75 ML/HR, LEVAQUIN 250MG IV HS, DUONEBS QID, PULMICORT NEBS BID, SOLU-MEDROL 40MG IV Q8H, OTBS ACHS, HUMULIN R SLIDING SCALE, PERCOCET 5/325MG 2 TABS Q6H PRN PAIN, AND HER HOME MEDICATIONS WERE RESUMED. WE WILL OBTAIN A CHEST CT WITH CONTRAST IN THE MORNING. OTHERWISE, WE WILL FOLLOW UP WITH AM LABS AND CHEST XRAY AND CONTINUE TO MONITOR. TIME SPENT ON CLINICAL ASSESSMENT, REVIEWING LABS AND IMAGING, DECISION MAKING, AND DOCUMENTATION GREATER THAN 75 MINUTES. - Past Medical History Past Medical History: Coronary Artery Disease, Hypertension, Diabetes, Depression, Anxiety, Hypothyroidism, COPD, Arthritis, Migraines, CHF Additional Medical History: Congenital Heart Disease, Asthma, Fibroids, Muscle Weakness, Back Pain, Degenerative Disc Disease - Past Surgical History Surgical History: Cholecystectomy, Hysterectomy, Joint Replacement, Ortho Surgery - Family History Family Medical History: Diabetes Mellitus, Cancer, [place], Coronary Artery Disease - Social History Does patient currently use any type of tobacco product: No Have you used tobacco products in the last 12 months: No Type of Tobacco Use: None Does any household member use tobacco: No Alcohol Use: None Drug Use: None - Medications Home Medications: morphine Allergy (Verified 08/06/20 13:53) rofecoxib [From Vioxx] Allergy (Verified 08/06/20 13:53) - Review of Systems Constitutional: Weakness Eyes: No Symptoms Reported ENT: No Symptoms Reported Respiratory: See HPI, Cough, Shortness of Breath, SOB with Excertion, Wheezing Cardiovascular: No Symptoms Reported Gastrointestinal: No Symptoms Reported Genitourinary: No Symptoms Reported Musculoskeletal: No Symptoms Reported Skin: No Symptoms Reported Neurological: Weakness - Physical Exam Vital Signs: Temperature 98.8 F Pulse Rate [Radial] 88 Pulse Rate 78 Respiratory Rate 18 Blood Pressure [Right Arm] 151/79 Blood Pressure [Left Calf] 172/80 Blood Pressure [Left Arm] 171/81 O2 Sat by Pulse Oximetry 94 Oriented: Normal Eyes: Normal Ear: Normal Nose: Normal Throat: Normal Respiratory: Wheezes Throughout Cardiovascular: Normal : Normal Auscultation: Bowel Sounds: Normal Palpation: Normal Tenderness: Normal Skin: Normal Musculoskeletal: Normal Psychiatric: Normal Mood Description: Calm Affect: Normal Speech Pattern: Clear - Assessment/Plan (1) Acute exacerbation of chronic obstructive pulmonary disease Status: Acute Plan: ADMIT, NORMAL SALINE AT 75 ML/HR, LEVAQUIN 250MG IV HS, DUONEBS QID, PULMICORT NEBS BID, SOLU-MEDROL 40MG IV Q8H, OTBS ACHS, HUMULIN R SLIDING SCALE, PERCOCET 5/325MG 2 TABS Q6H PRN PAIN, AND HER HOME MEDICATIONS WERE RESUMED. OBTAIN SPUTUM CULTURE. OBTAIN CHEST CT (2) Acute bronchitis Qualifiers: Bronchitis organism: unspecified organism Status: Acute - Allergies Allergies/Adverse Reactions: Allergies Allergy/AdvReac Type Severity Reaction Status Date / Time morphine Allergy Verified 08/06/20 13:53 rofecoxib [From Vioxx] Allergy Verified 08/06/20 13:53
[2021-02-04] MEDS: ELIQUIS PO SCH ×2 (11:09→20:23)
[2021-02-04] MEDS: PERCOCET TAB 5/325 MG PO PRN ×2 (11:09→20:25)
[2021-02-04] MEDS: HumuLIN R SUBCUT PRN ×3 (11:57→20:24)
[2021-02-04] MEDS: NS 1000 ML 1,000 ML IV SCH ×2 (13:39→22:11)
[2021-02-04] MEDS ORDERED: ANTIVERT TAB 25 MG PO PRN (16:45)
[2021-02-04] MEDS ORDERED: NITROSTAT SL PRN ×2 (16:45→18:00)
[2021-02-04] MEDS ORDERED: ULTRAM PO PRN (16:45)
[2021-02-04] MEDS ORDERED: TORADOL TAB PO PRN (16:45)
[2021-02-04] MEDS ORDERED: ZOFRAN TAB 4 MG PO PRN (16:45)
[2021-02-04] MEDS ORDERED: XANAX PO PRN (17:08)
[2021-02-04] MEDS ORDERED: TOPROL XL PO ONE (17:17)
[2021-02-04] MEDS: TOPROL XL PO SCH (17:32)
[2021-02-04] MEDS: SYNTHROID 25 mcg TAB PO SCH (17:32)
[2021-02-04] MEDS: OXYBUTYNIN CHLORIDE ER PO SCH (17:33)
[2021-02-04] MEDS: ZAROXOLYN PO SCH (17:33)
[2021-02-04] MEDS: ATARAX TAB 10 MG PO SCH (17:35)
[2021-02-04] MEDS: COLACE CAP 100 MG PO SCH (20:23)
[2021-02-04] MEDS: SNACK - Diabetic Appropriate PO SCH (20:23)
[2021-02-04] MEDS: PROTONIX TAB 40 MG PO SCH (20:23)
[2021-02-04] MEDS: LEVAQUIN PREMIX IV 250 MG 250 MG/50 ML BAG IV SCH (20:24)
[2021-02-04] MEDS: MEGACE PO SCH (20:24)
[2021-02-04] MEDS: AMBIEN PO PRN (20:35)
[2021-02-05] MEDS: PERCOCET TAB 5/325 MG PO PRN ×3 (03:52→22:17)
[2021-02-05] MEDS ORDERED: CATAPRES TAB 0.1 MG PO ONE (04:59)
[2021-02-05] MEDS ORDERED: CATAPRES TAB 0.1 MG ONE (05:01)
[2021-02-05] MEDS: SOLU-Medrol 40 MG VIAL IVP SCH ×3 (05:33→22:16)
[2021-02-05 05:58] LABS: BASOPHILS % (AUTO) 0 % (0.2-1.0); HEMATOCRIT 27.5 % (36.0-47.0); LYMPHOCYTES # (AUTO) 1.1 X10^3/uL (1.3-2.9); LYMPHOCYTES % (AUTO) 8.5 % (21.0-51.0); MEAN CORPUSCULAR HEMOGLOBIN 26.9 pg (27.0-34.0); MEAN CORPUSCULAR HGB CONC 32.7 g/dL (33.0-35.0); MEAN CORPUSCULAR VOLUME 82.4 fL (80.0-100.0); MONOCYTES # (AUTO) 0.9 x10^3/uL (0.3-0.8); MONOCYTES % (AUTO) 6.9 % (0.0-13.0); NEUTROPHILS # (AUTO) 11.2 x10^3/uL (2.2-4.8); NEUTROPHILS % (AUTO) 84.6 % (42.0-75.0); PLATELET COUNT 384 X10^3/uL (150.0-450.0); RED BLOOD COUNT 3.33 X10^6/uL (3.5-5.4); WHITE BLOOD COUNT 13.2 X10^3/uL (3.6-10.0)
[2021-02-05] MEDS: NS 1000 ML 1,000 ML IV SCH ×2 (06:15→12:36)
[2021-02-05 06:31] LABS: ALANINE AMINOTRANSFERASE 24 Units/L (12-78); ALBUMIN 2.9 g/dL (3.4-5.0); ALKALINE PHOSPHATASE 74 Units/L (46-116); ASPARTATE AMINO TRANSFERASE 11 Units/L (15-37); BLOOD UREA NITROGEN 14 mg/dL (7-18); CALCIUM 8.5 mg/dL (8.5-10.1); CARBON DIOXIDE 24.3 mmol/L (21-32); CHLORIDE 106 mmol/L (98-107); COR CA(FOR HYPOALB) 9.4 mg/dL (8.5-10.1); COR NA(FOR HYPERGLY) 142 mmol/L (136-145); CREATININE 0.91 mg/dL (0.55-1.02); SODIUM 141 mmol/L (136-145); TOTAL PROTEIN 6.5 g/dL (6.4-8.2); eGFR NON BLACK RACES > 60 (>60)
[2021-02-05] MEDS ORDERED: TOPROL XL PO ONE ×2 (08:22→08:50)
[2021-02-05] MEDS: SYNTHROID 25 mcg TAB PO SCH (08:46)
[2021-02-05] MEDS: ASPIRIN EC 81 MG PO SCH (08:46)
[2021-02-05] MEDS: COLACE CAP 100 MG PO SCH ×2 (08:46→20:41)
[2021-02-05] MEDS: TOPROL XL PO SCH (08:47)
[2021-02-05] MEDS: MEGACE PO SCH ×2 (08:47→20:42)
[2021-02-05] MEDS: ELIQUIS PO SCH ×2 (08:48→20:42)
[2021-02-05] MEDS: ZAROXOLYN PO SCH (08:48)
[2021-02-05] MEDS: PROTONIX TAB 40 MG PO SCH ×2 (08:48→20:42)
[2021-02-05] MEDS: OXYBUTYNIN CHLORIDE ER PO SCH (08:48)
[2021-02-05] MEDS: ULTRAM PO PRN ×2 (09:00→20:43)
[2021-02-05] MEDS: PULMICORT NEB TX 0.5 MG NEB SCH ×2 (09:06→20:09)
[2021-02-05] MEDS: DUONEB 0.5 MG/3 MG (3 mL) NEB SCH ×4 (09:06→20:09)
[2021-02-05] MEDS: ATARAX TAB 10 MG PO SCH (09:42)
--- NOTE | 2021-02-05 11:03 | PCM.PROG ---
Progress Note - Progress Note for Day of Date of Exam: 02/05/21 - Subjective Subjective: WAS ADMITTED FOR TREATMENT OF COPD EXACERBATION WITH ACUTE BRONCHITIS. TODAY, SHE IS ALERT AND ORIENTED, LYING IN BED ON MORNING ROUNDS. SHE CONTINUES WITH COMPLAINTS OF COUGH, SHORTNESS OF BREATH, AND WEAKNESS TODAY. SHE ALSO REPORTS HAVING A HEADACHE. ON EXAMINATION, HEART IS REGULAR IN RATE AND RHYTHM. BILATERAL LUNGS ARE NOTED WITH WHEEZING THROUGHOUT. ABDOMEN IS ROUND, SOFT, AND NON-TENDER WITH NORMAL BOWEL SOUNDS NOTED IN ALL QUADRANTS. HER VITALS THIS MORNING ARE: 98.9-72-20-99%-189/92. LABS WERE OBTAINED. ABNORMAL LAB VALUES INCLUDE THE FOLLOWING: WBC 13.2, RBC 3.33, HGB 9.0, HCT 27.5, GLUCOSE 144, AST 11, ALBUMIN 2.9. A CHEST CT WITH CONTRAST WAS OBTAINED THIS MORNING. RESULTS ARE PENDING. SHE IS CURRENTLY RECEIVING: NORMAL SALINE AT 75 ML/HR, LEVAQUIN 250MG IV HS, DUONEBS QID, PULMICORT NEBS BID, SOLU-MEDROL 40MG IV Q8H, OTBS ACHS, HUMULIN R SLIDING SCALE, PERCOCET 5/325MG 2 TABS Q6H PRN PAIN, AND HER HOME MEDICATIONS WERE RESUMED. WE WILL ADD TOPAMAX 25MG PO BID TODAY. OTHERWISE, WE WILL CONTINUE WITH CURRENT PLAN OF CARE. WE WILL FOLLOW UP WITH AM LABS AND CHEST XRAY AND CONTINUE TO MONITOR. TIME SPENT ON CLINICAL ASSESSMENT, REVIEWING LABS AND IMAGING, DECISION MAKING, AND DOCUMENTATION GREATER THAN 45 MINUTES. - Past Medical Family Social History Past Med/Fam/Surg Hx: No changes since H&P Allergies: Allergies morphine Allergy (Verified 08/06/20 13:53) rofecoxib [From Vioxx] Allergy (Verified 08/06/20 13:53) - Review of Systems ROS: No change since H&P - Vital Signs and I&O's Vital Signs: Temperature 98.9 F Pulse Rate [Radial] 72 Pulse Rate 77 Respiratory Rate 20 Blood Pressure [Right Arm] 189/92 Blood Pressure [Left Calf] 172/80 Blood Pressure [Left Arm] 135/68 O2 Sat by Pulse Oximetry 98 Intake and Output: Intake & Output 02/02/21 02/03/21 02/04/21 02/05/21 11:59 11:59 11:59 11:59 Intake Total 1055 / 1055 2170 / 2170 Balance 1055 / 1055 2170 / 2170 - Physical Exam Oriented: Normal Eyes: Normal Ear: Normal Nose: Normal Throat: Normal Respiratory: Wheezes Cardiovascular: Normal : Normal Auscultation: Bowel Sounds: Normal Palpation: Normal Tenderness: Normal Skin: Normal Musculoskeletal: Normal Psychiatric: Normal Mood Description: Calm Affect: Normal Speech Pattern: Clear, Appropriate - Laboratory and Diagnostics Result Diagrams: 02/05/21 05:28 02/05/21 05:28 Labs: Laboratory WBC 13.2 X10^3/uL (3.6-10.0) H 02/05/21 05:28 RBC 3.33 X10^6/uL (3.5-5.4) L 02/05/21 05:28 Hgb 9.0 g/dL (12.0-16.0) L 02/05/21 05:28 Hct 27.5 % (36.0-47.0) L 02/05/21 05:28 MCV 82.4 fL (80.0-100.0) 02/05/21 05:28 MCH 26.9 pg (27.0-34.0) L 02/05/21 05:28 MCHC 32.7 g/dL (33.0-35.0) L 02/05/21 05:28 RDW 18.0 % (11.6-16.5) H 02/05/21 05:28 Plt Count 384 X10^3/uL (150.0-450.0) 02/05/21 05:28 MPV 7.0 fL (7.4-11.0) L 02/05/21 05:28 Neut % (Auto) 84.6 % (42.0-75.0) H 02/05/21 05:28 Lymph % (Auto) 8.5 % (21.0-51.0) L 02/05/21 05:28 [place] % (Auto) 6.9 % (0.0-13.0) 02/05/21 05:28 Eos % (Auto) 0.0 % (0.9-2.9) L 02/05/21 05:28 Baso % (Auto) 0 % (0.2-1.0) L 02/05/21 05:28 Neut # (Auto) 11.2 x10^3/uL (2.2-4.8) H 02/05/21 05:28 Lymph # (Auto) 1.1 X10^3/uL (1.3-2.9) L 02/05/21 05:28 [place] # (Auto) 0.9 x10^3/uL (0.3-0.8) H 02/05/21 05:28 Eos # (Auto) 0.0 x10^3/uL (0.0-0.2) 02/05/21 05:28 Baso # (Auto) 0.0 X10^3/uL (0.0-0.1) 02/05/21 05:28 Absolute Nucleated RBC 0.0 /100WBC 02/05/21 05:28 Sodium 141 mmol/L (136-145) 02/05/21 05:28 Corrected Sodium 142 mmol/L (136-145) 02/05/21 05:28 Potassium 4.1 mmol/L (3.5-5.1) 02/05/21 05:28 Chloride 106 mmol/L (98-107) 02/05/21 05:28 Carbon Dioxide 24.3 mmol/L (21-32) 02/05/21 05:28 BUN 14 mg/dL (7-18) 02/05/21 05:28 Creatinine 0.91 mg/dL (0.55-1.02) 02/05/21 05:28 Est GFR (MDRD) Af Amer > 60 (>60) 02/05/21 05:28 Est GFR (MDRD) Non-Af > 60 (>60) 02/05/21 05:28 Glucose 144 mg/dL (65-99) H 02/05/21 05:28 POC Glucose (mg/dL) 132 mg/dL (65-99) H 02/05/21 05:29 Calcium 8.5 mg/dL (8.5-10.1) 02/05/21 05:28 Corrected Calcium 9.4 mg/dL (8.5-10.1) 02/05/21 05:28 Total Bilirubin 0.20 mg/dL (0.2-1.0) 02/05/21 05:28 AST 11 Units/L (15-37) L 02/05/21 05:28 ALT 24 Units/L (12-78) 02/05/21 05:28 Alkaline Phosphatase 74 Units/L (46-116) 02/05/21 05:28 Total Protein 6.5 g/dL (6.4-8.2) 02/05/21 05:28 Albumin 2.9 g/dL (3.4-5.0) L 02/05/21 05:28 Globulin 3.6 g/dL (2.5-4.5) 02/05/21 05:28 Albumin/Globulin Ratio 0.8 Ratio (1.1-2.1) L 02/05/21 05:28 SARS-CoV-2 (PCR) Negative (NEGATIVE) 02/03/21 18:05 Influenza Type A (PCR) Negative (NEGATIVE) 02/03/21 18:05 Influenza Type B (PCR) Negative (NEGATIVE) 02/03/21 18:05 RSV (PCR) Negative (NEGATIVE) 02/03/21 18:05 - Plan (1) Acute exacerbation of chronic obstructive pulmonary disease Status: Acute Plan: NORMAL SALINE AT 75 ML/HR, LEVAQUIN 250MG IV HS, DUONEBS QID, PULMICORT NEBS BID, SOLU-MEDROL 40MG IV Q8H, OTBS ACHS, HUMULIN R SLIDING SCALE, PERCOCET 5/325MG 2 TABS Q6H PRN PAIN, AND HER HOME MEDICATIONS WERE RESUMED. OBTAIN SPUTUM CULTURE. OBTAIN CHEST CT (2) Acute bronchitis Status: Acute Qualifiers: Bronchitis organism: unspecified organism
[2021-02-05] MEDS: TOPAMAX PO SCH ×2 (11:15→20:42)
[2021-02-05] MEDS: HumuLIN R SUBCUT PRN ×2 (11:28→20:43)
--- NOTE | 2021-02-05 14:35 | CT ---
PROCEDURE: CTA Chest .HISTORY: Dyspnea and COPD.TECHNIQUE: Axial images were performed through the chest with the administration of IV contrast with multiplanar reformations . 3D and MIPS reconstructions were performed and reviewed. Dose reduction techniques including Automated Exposure Control (AEC) and adjustment of mA and kV were utilized .COMPARISON: 10/20/2018.TECHNICAL QUALITY: Satisfactory .FINDINGS:Mild atherosclerosis and tortuosity aorta with no aneurysm or dissection.No evidence of pulmonary embolus.Normal size heart no pericardial fluid.Mediastinum and hilar regions show no masses or lymphadenopathy.No pulmonary consolidation, masses, or pleural fluid.Some linear scar versus discoid atelectasis both lung carroll.Visualized upper abdomen shows mild hydroureteronephrosis visualized collecting system on the right. Previous cholecystectomy.No acute bony abnormality.IMPRESSION:1. No pulmonary embolus or aortic dissection.2. No pulmonary consolidation.3. Mild hydroureteronephrosis visualized collecting system on the right that is unchanged from previous CT abdomen pelvis from August 06, 2020.Electronically signed by: Aly Stevens (Feb 05, 2021 14:33:27)
[2021-02-05] MEDS: SNACK - Diabetic Appropriate PO SCH (20:41)
[2021-02-05] MEDS: LEVAQUIN PREMIX IV 250 MG 250 MG/50 ML BAG IV SCH (20:42)
[2021-02-05] MEDS: AMBIEN PO PRN (20:43)
[2021-02-06] MEDS: NS 1000 ML 1,000 ML IV SCH ×2 (02:34→13:33)
[2021-02-06] MEDS: SOLU-Medrol 40 MG VIAL IVP SCH ×3 (05:37→21:03)
[2021-02-06 06:40] LABS: BASOPHILS % (AUTO) 0.1 % (0.2-1.0); HEMATOCRIT 28.2 % (36.0-47.0); HEMOGLOBIN 9.1 g/dL (12.0-16.0); LYMPHOCYTES # (AUTO) 1.4 X10^3/uL (1.3-2.9); MEAN CORPUSCULAR HGB CONC 32.3 g/dL (33.0-35.0); MEAN CORPUSCULAR VOLUME 83.7 fL (80.0-100.0); MEAN PLATELET VOLUME 6.9 fL (7.4-11.0); MONOCYTES % (AUTO) 8.9 % (0.0-13.0); NEUTROPHILS # (AUTO) 9.2 x10^3/uL (2.2-4.8); PLATELET COUNT 369 X10^3/uL (150.0-450.0); RED BLOOD COUNT 3.37 X10^6/uL (3.5-5.4); RED CELL DISTRIBUTION WIDTH 17.9 % (11.6-16.5); WHITE BLOOD COUNT 11.7 X10^3/uL (3.6-10.0)
[2021-02-06 06:55] LABS: ALANINE AMINOTRANSFERASE 33 Units/L (12-78); ALBUMIN 2.8 g/dL (3.4-5.0); ALKALINE PHOSPHATASE 66 Units/L (46-116); ASPARTATE AMINO TRANSFERASE 16 Units/L (15-37); BLOOD UREA NITROGEN 16 mg/dL (7-18); CALCIUM 8.7 mg/dL (8.5-10.1); CHLORIDE 104 mmol/L (98-107); COR CA(FOR HYPOALB) 9.7 mg/dL (8.5-10.1); COR NA(FOR HYPERGLY) 141 mmol/L (136-145); CREATININE 0.97 mg/dL (0.55-1.02); SODIUM 140 mmol/L (136-145); TOTAL PROTEIN 6.3 g/dL (6.4-8.2); eGFR NON BLACK RACES 60 (>60)
--- NOTE | 2021-02-06 07:57 | RAD ---
HISTORYSOBSTUDYAP [id number] heart size. The lungs are normally inflated without evidence for localized airspace disease or edema. Stable position of left IJ port extending to the cavoatrial junction or right atrium.IMPRESSIONNo significant change or acute pulmonary infiltrate identified.Electronically signed by: ZAC AVENDANO (Feb 06, 2021 07:55:56)
[2021-02-06] MEDS ORDERED: TOPROL XL PO ONE (08:27)
[2021-02-06] MEDS: PULMICORT NEB TX 0.5 MG NEB SCH ×2 (08:29→20:52)
[2021-02-06] MEDS: DUONEB 0.5 MG/3 MG (3 mL) NEB SCH ×4 (08:29→20:51)
[2021-02-06] MEDS: ATARAX TAB 10 MG PO SCH (08:42)
[2021-02-06] MEDS: ASPIRIN EC 81 MG PO SCH (08:42)
[2021-02-06] MEDS: TOPROL XL PO SCH (08:43)
[2021-02-06] MEDS: ZAROXOLYN PO SCH (08:43)
[2021-02-06] MEDS: MILK OF MAGNESIA PO SCH (08:44)
[2021-02-06] MEDS: PROTONIX TAB 40 MG PO SCH ×2 (08:44→20:38)
[2021-02-06] MEDS: SYNTHROID 25 mcg TAB PO SCH (08:44)
[2021-02-06] MEDS: OXYBUTYNIN CHLORIDE ER PO SCH (08:44)
[2021-02-06] MEDS: TOPAMAX PO SCH ×2 (08:44→20:38)
[2021-02-06] MEDS: MEGACE PO SCH ×2 (08:44→20:37)
[2021-02-06] MEDS: ELIQUIS PO SCH ×2 (08:45→20:37)
[2021-02-06] MEDS: PERCOCET TAB 5/325 MG PO PRN ×2 (08:50→16:05)
--- NOTE | 2021-02-06 18:12 | PCM.PROG ---
Progress Note - Progress Note for Day of Date of Exam: 02/06/21 - Subjective Subjective: WAS ADMITTED FOR TREATMENT OF COPD EXACERBATION WITH ACUTE BRONCHITIS. TODAY, SHE IS ALERT AND ORIENTED, LYING IN BED ON MORNING ROUNDS. SHE CONTINUES WITH COMPLAINTS OF COUGH, SHORTNESS OF BREATH, AND WEAKNESS TODAY. ON EXAMINATION, HEART IS REGULAR IN RATE AND RHYTHM. BILATERAL LUNGS ARE NOTED WITH WHEEZING THROUGHOUT. ABDOMEN IS ROUND, SOFT, AND NON-TENDER WITH NORMAL BOWEL SOUNDS NOTED IN ALL QUADRANTS. HER VITALS THIS MORNING ARE: 99.4-62-14-94%-199/90. LABS WERE OBTAINED. ABNORMAL LAB VALUES INCLUDE THE FOLLOWING: WBC 11.7, HCT 3.37, HGB 9.1, HCT 28.2, GLUCOSE 133, TOTAL PROTEIN 6.3, ALUBMIN 2.8. A CHEST CT WITH CONTRAST WAS OBTAINED YESTERDAY. IT REVEALED: 1. No pulmonary embolus or aortic dissection. 2. No pulmonary consolidation. 3. Mild hydroureteronephrosis visualized collecting system on the right that is unchanged from previous CT abdomen pelvis from August 06. SHE IS CURRENTLY RECEIVING: NORMAL SALINE AT 75 ML/HR, LEVAQUIN 250MG IV HS, DUONEBS QID, PULMIC ORT NEBS BID, SOLU-MEDROL 40MG IV Q8H, TOPAMAX 25MG PO BID, OTBS ACHS, HUMULIN R SLIDING SCALE, PERCOCET 5/325MG 2 TABS Q6H PRN PAIN, AND HER HOME MEDICATIONS WERE RESUMED. OTHERWISE, WE WILL CONTINUE WITH CURRENT PLAN OF CARE. WE WILL FOLLOW UP WITH AM LABS AND CHEST XRAY AND CONTINUE TO MONITOR. TIME SPENT ON CLINICAL ASSESSMENT, REVIEWING LABS AND IMAGING, DECISION MAKING, AND DOCUMENTATION GREATER THAN 45 MINUTES. - Past Medical Family Social History Past Med/Fam/Surg Hx: No changes since H&P Allergies: Allergies morphine Allergy (Verified 08/06/20 13:53) rofecoxib [From Vioxx] Allergy (Verified 08/06/20 13:53) - Review of Systems ROS: No change since H&P - Vital Signs and I&O's Vital Signs: Temperature 98.4 F Pulse Rate [Radial] 76 Pulse Rate 89 Respiratory Rate 20 Blood Pressure [Right Arm] 198/84 Blood Pressure [Left Calf] 172/80 Blood Pressure [Left Arm] 135/68 O2 Sat by Pulse Oximetry 100 Intake and Output: Intake & Output 02/04/21 02/05/21 02/06/21 02/07/21 11:59 11:59 11:59 11:59 Intake Total 1055 / 1055 2170 / 2170 2546 / 2546 1664 / 1664 Balance 1055 / 1055 2170 / 2170 2546 / 2546 1664 / 1664 - Physical Exam Oriented: Normal Eyes: Normal Ear: Normal Nose: Normal Throat: Normal Respiratory: Wheezes Cardiovascular: Normal : Normal Auscultation: Bowel Sounds: Normal Tenderness: Normal Skin: Normal Musculoskeletal: Normal Psychiatric: Normal Mood Description: Calm Affect: Normal Speech Pattern: Clear, Appropriate - Laboratory and Diagnostics Result Diagrams: 02/06/21 06:10 02/06/21 06:10 Labs: 02/06/21 09:02 Sputum - Expectorated Sputum - Final Laboratory WBC 11.7 X10^3/uL (3.6-10.0) H 02/06/21 06:10 RBC 3.37 X10^6/uL (3.5-5.4) L 02/06/21 06:10 Hgb 9.1 g/dL (12.0-16.0) L 02/06/21 06:10 Hct 28.2 % (36.0-47.0) L 02/06/21 06:10 MCV 83.7 fL (80.0-100.0) 02/06/21 06:10 MCH 27.0 pg (27.0-34.0) 02/06/21 06:10 MCHC 32.3 g/dL (33.0-35.0) L 02/06/21 06:10 RDW 17.9 % (11.6-16.5) H 02/06/21 06:10 Plt Count 369 X10^3/uL (150.0-450.0) 02/06/21 06:10 MPV 6.9 fL (7.4-11.0) L 02/06/21 06:10 Neut % (Auto) 79.0 % (42.0-75.0) H 02/06/21 06:10 Lymph % (Auto) 12.0 % (21.0-51.0) L 02/06/21 06:10 [place] % (Auto) 8.9 % (0.0-13.0) 02/06/21 06:10 Eos % (Auto) 0.0 % (0.9-2.9) L 02/06/21 06:10 Baso % (Auto) 0.1 % (0.2-1.0) L 02/06/21 06:10 Neut # (Auto) 9.2 x10^3/uL (2.2-4.8) H 02/06/21 06:10 Lymph # (Auto) 1.4 X10^3/uL (1.3-2.9) 02/06/21 06:10 [place] # (Auto) 1.0 x10^3/uL (0.3-0.8) H 02/06/21 06:10 Eos # (Auto) 0.0 x10^3/uL (0.0-0.2) 02/06/21 06:10 Baso # (Auto) 0.0 X10^3/uL (0.0-0.1) 02/06/21 06:10 Absolute Nucleated RBC 0.0 /100WBC 02/06/21 06:10 Sodium 140 mmol/L (136-145) 02/06/21 06:10 Corrected Sodium 141 mmol/L (136-145) 02/06/21 06:10 Potassium 3.9 mmol/L (3.5-5.1) 02/06/21 06:10 Chloride 104 mmol/L (98-107) 02/06/21 06:10 Carbon Dioxide 27.0 mmol/L (21-32) 02/06/21 06:10 BUN 16 mg/dL (7-18) 02/06/21 06:10 Creatinine 0.97 mg/dL (0.55-1.02) 02/06/21 06:10 Est GFR (MDRD) Af Amer > 60 (>60) 02/06/21 06:10 Est GFR (MDRD) Non-Af 60 (>60) 02/06/21 06:10 Glucose 133 mg/dL (65-99) H 02/06/21 06:10 POC Glucose (mg/dL) 133 mg/dL (65-99) H 02/06/21 16:18 Calcium 8.7 mg/dL (8.5-10.1) 02/06/21 06:10 Corrected Calcium 9.7 mg/dL (8.5-10.1) 02/06/21 06:10 Total Bilirubin 0.20 mg/dL (0.2-1.0) 02/06/21 06:10 AST 16 Units/L (15-37) 02/06/21 06:10 ALT 33 Units/L (12-78) 02/06/21 06:10 Alkaline Phosphatase 66 Units/L (46-116) 02/06/21 06:10 Total Protein 6.3 g/dL (6.4-8.2) L 02/06/21 06:10 Albumin 2.8 g/dL (3.4-5.0) L 02/06/21 06:10 Globulin 3.5 g/dL (2.5-4.5) 02/06/21 06:10 Albumin/Globulin Ratio 0.8 Ratio (1.1-2.1) L 02/06/21 06:10 SARS-CoV-2 (PCR) Negative (NEGATIVE) 02/03/21 18:05 Influenza Type A (PCR) Negative (NEGATIVE) 02/03/21 18:05 Influenza Type B (PCR) Negative (NEGATIVE) 02/03/21 18:05 RSV (PCR) Negative (NEGATIVE) 02/03/21 18:05 - Plan (1) Acute exacerbation of chronic obstructive pulmonary disease Status: Acute Plan: NORMAL SALINE AT 75 ML/HR, LEVAQUIN 250MG IV HS, DUONEBS QID, PULMICORT NEBS BID, SOLU-MEDROL 40MG IV Q8H, OTBS ACHS, HUMULIN R SLIDING SCALE, PERCOCET 5/325MG 2 TABS Q6H PRN PAIN, AND HER HOME MEDICATIONS WERE RESUMED. OBTAIN SPUTUM CULTURE. OBTAIN CHEST CT (2) Acute bronchitis Status: Acute Qualifiers: Bronchitis organism: unspecified organism
[2021-02-06] MEDS: LEVAQUIN PREMIX IV 250 MG 250 MG/50 ML BAG IV SCH (20:37)
[2021-02-06] MEDS: SNACK - Diabetic Appropriate PO SCH (20:37)
[2021-02-06] MEDS ORDERED: COLACE CAP 100 MG PO SCH (21:00)
[2021-02-06] MEDS: AMBIEN PO PRN (21:03)
[2021-02-07] MEDS: NS 1000 ML 1,000 ML IV SCH (04:23)
[2021-02-07 05:20] LABS: BASOPHILS % (AUTO) 0 % (0.2-1.0); HEMATOCRIT 28.8 % (36.0-47.0); HEMOGLOBIN 9.5 g/dL (12.0-16.0); LYMPHOCYTES % (AUTO) 12.1 % (21.0-51.0); MEAN CORPUSCULAR HEMOGLOBIN 27.1 pg (27.0-34.0); MEAN CORPUSCULAR HGB CONC 32.9 g/dL (33.0-35.0); MEAN CORPUSCULAR VOLUME 82.3 fL (80.0-100.0); MONOCYTES # (AUTO) 1.8 x10^3/uL (0.3-0.8); MONOCYTES % (AUTO) 10.8 % (0.0-13.0); NEUTROPHILS # (AUTO) 12.6 x10^3/uL (2.2-4.8); NEUTROPHILS % (AUTO) 77.1 % (42.0-75.0); PLATELET COUNT 382 X10^3/uL (150.0-450.0); RED CELL DISTRIBUTION WIDTH 17.7 % (11.6-16.5); WHITE BLOOD COUNT 16.4 X10^3/uL (3.6-10.0)
[2021-02-07 05:21] LABS: ALANINE AMINOTRANSFERASE 46 Units/L (12-78); ALBUMIN 2.8 g/dL (3.4-5.0); ALKALINE PHOSPHATASE 65 Units/L (46-116); ASPARTATE AMINO TRANSFERASE 18 Units/L (15-37); BLOOD UREA NITROGEN 17 mg/dL (7-18); CALCIUM 8.7 mg/dL (8.5-10.1); CARBON DIOXIDE 27.7 mmol/L (21-32); CHLORIDE 103 mmol/L (98-107); COR CA(FOR HYPOALB) 9.7 mg/dL (8.5-10.1); CREATININE 0.98 mg/dL (0.55-1.02); SODIUM 137 mmol/L (136-145); TOTAL PROTEIN 6.3 g/dL (6.4-8.2); eGFR NON BLACK RACES 59 (>60)
[2021-02-07] MEDS: SOLU-Medrol 40 MG VIAL IVP SCH (05:27)
--- NOTE | 2021-02-07 07:18 | RAD ---
HISTORYSOBSTUDYCHEST, 1 VIEWCOMPARISONOne day prior.TECHNIQUEAP view of the chestFINDINGSLeft chest wall port with tip in good position.[The cardiac and mediastinal contours are within normal limits. The lungs are clear without focal consolidation or segmental collapse. No pleural effusion or pneumothorax.] Reversed right total shoulder arthroplasty noted.IMPRESSIONNo acute pulmonary process.Electronically signed by: Parag Hirsch (Feb 07, 2021 07:15:38)
[2021-02-07 07:51] VITALS: BP 195/75
[2021-02-07] MEDS: PULMICORT NEB TX 0.5 MG NEB SCH (08:30)
[2021-02-07] MEDS: DUONEB 0.5 MG/3 MG (3 mL) NEB SCH (08:30)
[2021-02-07] MEDS ORDERED: TOPROL XL PO ONE (08:31)
[2021-02-07] MEDS: TOPROL XL PO SCH (08:57)
[2021-02-07] MEDS: ASPIRIN EC 81 MG PO SCH (08:57)
[2021-02-07] MEDS: ATARAX TAB 10 MG PO SCH (08:58)
[2021-02-07] MEDS: MILK OF MAGNESIA PO SCH (08:58)
[2021-02-07] MEDS: MEGACE PO SCH (08:58)
[2021-02-07] MEDS: TOPAMAX PO SCH (08:59)
[2021-02-07] MEDS: PROTONIX TAB 40 MG PO SCH (09:00)
[2021-02-07] MEDS: ZAROXOLYN PO SCH (09:00)
[2021-02-07] MEDS: ELIQUIS PO SCH (09:01)
[2021-02-07] MEDS: SYNTHROID 25 mcg TAB PO SCH (09:04)
[2021-02-07] MEDS: OXYBUTYNIN CHLORIDE ER PO SCH (09:09)
[2021-02-07] MEDS: PERCOCET TAB 5/325 MG PO PRN (11:15)
== END 2021-02-07 12:45 | disposition home or self-care (01) | DRG 192 ==
LOC: MED/SURG 16:35
PROVIDERS: ADMIT Internal Medicine; ATTEND Internal Medicine
DX: R06.02 Shortness of breath; R51.9 Headache, unspecified; R29.6 Repeated falls; J20.8 Acute bronchitis due to other specified organisms; R53.1 Weakness; J44.0 Chronic obstructive pulmonary disease with (acute) lower respiratory infection; J44.1 Chronic obstructive pulmonary disease with (acute) exacerbation; Z20.822 Contact with and (suspected) exposure to COVID-19

== ENCOUNTER 2021-03-28 15:49 | Observation (INO) ==
--- NOTE | 2021-03-28 15:59 | DR.CP ---
HPI Time Seen Time Seen by Provider: 03/28/21 15:51 Complaint Chief Complaint Doctor Comments: 70 y/o female sent to the ER from [place] for evaluation. Sent for chest pain and low heart rate (30s). Pt states having pain across the chest, describes as "pain". Radiates to upper abdomen. Nothing makes it better, nothing makes it worse. Associated with nausea, denies vomiting or diarrhea. No change in bowel or bladder. Denies fever/chills or dyspnea. COVID-19 Coronavirus risk:travel/contact w/high risk person: No Has patient experienced Coronavirus symptoms: No Reviewed Nurses Notes Review: Yes Source History Provided: Patient and Mcfp Mode of Arrival Mode of Arrival: Stretcher Timing Came on: Gradually Duration Duration: Constant Duration: Hours Context Onset: At rest Severity Severity: Moderate PMH PMH Past Medical History: Anxiety, Arthritis, CHF, COPD, Coronary Artery Disease, Depression, Diabetes, Migraines, Hypertension and Hypothyroidism Past Surgical History: Yes Surgical History: Cholecystectomy, Hysterectomy and Other Family History Family Medical History: Diabetes Mellitus, Cancer, [place] and Coronary Artery Disease Social History Do you use any recreational Drugs:: No ROS Review of Systems Constitutional: Malaise and Weakness Eyes: No Symptoms Reported ENTM: No Symptoms Reported Respiratoy: No Symptoms Reported Cardiovascular: Chest Pain Gastrointestinal/Abdominal: Abdominal Pain and Nausea Genitourinary: No Symptoms Reported Neurological: Weakness Musculoskeletal: No Symptoms Reported Integumentary: No Symptoms Reported Hematologic/Lymphatic: No Symptoms Reported Psychiatric: No Symptoms Reported All Other Systems: Reviewed and Negative PE Vitals Vitals: Temperature 97.8 F Pulse Rate 64 Respiratory Rate 29 Blood Pressure [Right Arm] 124/74 Blood Pressure 154/67 O2 Sat by Pulse Oximetry 100 General Limitations: No Limitations General Appearance: Alert and In No Apparent Distress Head Head Exam: Normal Inspection Eyes Eye exam: Normal Appearance, PERRL and EOMI ENT ENT Exam: Normal Exam and Mucous Membranes Moist Chest Chest Inspection: Normal Inspection; negative Tenderness Respiratory Respiratory Exam: Normal Lung Sounds Bilat; negative Accessory Muscle Use and Respiratory Distress Respiratory Exam: Bilateral: Clear to Auscultation Cardiovascular Cardiovascular Exam: Regular Rate, Normal Rhythm and Normal Heart Sounds Abdominal Exam Abdominal Exam: Normal Inspection, Normal Bowel Sounds, Soft and Tenderness (RUQ > LUQ) Extremities Extremities Exam: Normal Inspection and Full ROM; negative Tenderness and Edema Neurologic Neurological Exam: Alert, Oriented X3 and CN II-XII Intact; negative Motor Sensory Deficit Psychiatric Psychiatric Exam: Normal Affect Skin Skin Exam: Warm and Dry MDM Differential Diagnosis Differential Diagnosis: Angina, Chest Wall Pain, Cholelithasis, Costochondritis, Gastritis and Myocardial Infarction COURSE Treatment Treatment: 70 y/o female sent from [place] with chest pain, bradycardia. Pt in bigeminy at 72 (probably how the NH recorded 30 bpm). More tender of the RUQ. W/u initiated. ASA not given, reportedly on Eliquis, took today. 1904 - pt was feeling better, pain returning, epigastric, lower anterior chest. Has remaind in bigeminy during her ER stay. Reviewed record from recent hospitalization/EMR, no report of bigeminy in past. Labs, CXR acceptable. Cardiac enzymes negative. Will give dose of demerol/zofran and repeat troponin. 2033 - discussed with Dr Florian, covering for Dr Souza. Will admit for further observation of her bigeminy, chest/abdominal pain. ROR Labs Reviewed Laboratory Results Reviewed?: Yes Result Diagrams: 03/28/21 16:27 03/28/21 16:27 Laboratory: WBC 9.9 X10^3/uL (3.6-10.0) 03/28/21 16: RBC 3.95 X10^6/uL (3.5-5.4) 03/28/21 16: Hgb 10.9 g/dL (12.0-16.0) L 03/28/21 16: Hct 32.7 % (36.0-47.0) L 03/28/21 16: MCV 82.9 fL (80.0-100.0) 03/28/21 16: MCH 27.7 pg (27.0-34.0) 03/28/21 16: MCHC 33.4 g/dL (33.0-35.0) 03/28/21 16: RDW 14.5 % (11.6-16.5) 03/28/21 16: Plt Count 565 X10^3/uL (150.0-450.0) H 03/28/21 16: MPV 7.2 fL (7.4-11.0) L 03/28/21 16:27 Neut % (Auto) 78.5 % (42.0-75.0) H 03/28/21 16:27 Lymph % (Auto) 7.7 % (21.0-51.0) L 03/28/21 16:27 [place] % (Auto) 13.7 % (0.0-13.0) H 03/28/21 16:27 Eos % (Auto) 0.0 % (0.9-2.9) L 03/28/21 16:27 Baso % (Auto) 0.1 % (0.2-1.0) L 03/28/21 16:27 Neut # (Auto) 7.8 x10^3/uL (2.2-4.8) H 03/28/21 16:27 Lymph # (Auto) 0.8 X10^3/uL (1.3-2.9) L 03/28/21 16:27 [place] # (Auto) 1.4 x10^3/uL (0.3-0.8) H 03/28/21 16:27 Eos # (Auto) 0.0 x10^3/uL (0.0-0.2) 03/28/21 16:27 Baso # (Auto) 0.0 X10^3/uL (0.0-0.1) 03/28/21 16:27 Absolute Nucleated RBC 0.1 /100WBC 03/28/21 16:27 Sodium 138 mmol/L (136-145) 03/28/21 16:27 Corrected Sodium 140 mmol/L (136-145) 03/28/21 16:27 Potassium 3.6 mmol/L (3.5-5.1) 03/28/21 16:27 Chloride 104 mmol/L (98-107) 03/28/21 16:27 Carbon Dioxide 24.5 mmol/L (21-32) 03/28/21 16:27 BUN 27 mg/dL (7-18) H 03/28/21 16:27 Creatinine 0.92 mg/dL (0.55-1.02) 03/28/21 16:27 Est GFR (MDRD) Af Amer > 60 (>60) 03/28/21 16:27 Est GFR (MDRD) Non-Af > 60 (>60) 03/28/21 16:27 Glucose 195 mg/dL (65-99) H 03/28/21 16:27 Calcium 8.2 mg/dL (8.5-10.1) L 03/28/21 16:27 Corrected Calcium 9.6 mg/dL (8.5-10.1) 03/28/21 16:27 Total Bilirubin 0.20 mg/dL (0.2-1.0) 03/28/21 16:27 AST 12 Units/L (15-37) L 03/28/21 16:27 ALT 22 Units/L (12-78) 03/28/21 16:27 Alkaline Phosphatase 37 Units/L (46-116) L 03/28/21 16:27 Creatine Kinase 19 Units/L (26-192) L 03/28/21 16:27 CK-MB (CK-2) < 1.0 ng/mL (0-4.0) 03/28/21 16:27 CK/CKMB % Calc 5.3 % (<4) 03/28/21 16:27 Troponin I < 0.02 ng/mL (0-1.5) 03/28/21 20:13 Total Protein 5.8 g/dL (6.4-8.2) L 03/28/21 16:27 Albumin 2.3 g/dL (3.4-5.0) L 03/28/21 16:27 Globulin 3.5 g/dL (2.5-4.5) 03/28/21 16:27 Albumin/Globulin Ratio 0.7 Ratio (1.1-2.1) L 03/28/21 16:27 Lipase 386 Units/L (73-393) 03/28/21 16:27 Other Results Comments: Labs overall acceptable, mild anemia. Cardiac enzymes negative. XRAY XRAY Interpreted by: Both X-ray Results: COPD/chronic bronchitis changes, no acute abnormalities EKG Rate: 82 [place]: Normal Rhythm: NSR Block: None Hypertrophy: None ST: Nonsp Opioid Opioid Risk Tool Age (Can box if 16-45): No History of Preadolescent Sexual Abuse: No Total: 0 Total Score Risk Category: Low Risk Copyright: [facility] predicting aberrant behaviors Diagnosis Discharge Problem: Bigeminy, Acute upper abdominal pain
[2021-03-28 16:08] VITALS: BMI 26.6
[2021-03-28 16:40] LABS: BASOPHILS % (AUTO) 0.1 % (0.2-1.0); HEMATOCRIT 32.7 % (36.0-47.0); HEMOGLOBIN 10.9 g/dL (12.0-16.0); LYMPHOCYTES # (AUTO) 0.8 X10^3/uL (1.3-2.9); LYMPHOCYTES % (AUTO) 7.7 % (21.0-51.0); MEAN CORPUSCULAR HEMOGLOBIN 27.7 pg (27.0-34.0); MEAN CORPUSCULAR HGB CONC 33.4 g/dL (33.0-35.0); MEAN CORPUSCULAR VOLUME 82.9 fL (80.0-100.0); MEAN PLATELET VOLUME 7.2 fL (7.4-11.0); MONOCYTES # (AUTO) 1.4 x10^3/uL (0.3-0.8); MONOCYTES % (AUTO) 13.7 % (0.0-13.0); NEUTROPHILS # (AUTO) 7.8 x10^3/uL (2.2-4.8); NEUTROPHILS % (AUTO) 78.5 % (42.0-75.0); PLATELET COUNT 565 X10^3/uL (150.0-450.0); RED BLOOD COUNT 3.95 X10^6/uL (3.5-5.4); RED CELL DISTRIBUTION WIDTH 14.5 % (11.6-16.5); WHITE BLOOD COUNT 9.9 X10^3/uL (3.6-10.0)
[2021-03-28 16:57] LABS: ALANINE AMINOTRANSFERASE 22 Units/L (12-78); ALBUMIN 2.3 g/dL (3.4-5.0); ALKALINE PHOSPHATASE 37 Units/L (46-116); ASPARTATE AMINO TRANSFERASE 12 Units/L (15-37); BLOOD UREA NITROGEN 27 mg/dL (7-18); CALCIUM 8.2 mg/dL (8.5-10.1); CARBON DIOXIDE 24.5 mmol/L (21-32); CHLORIDE 104 mmol/L (98-107); CKMB % 5.3 % (<4); COR CA(FOR HYPOALB) 9.6 mg/dL (8.5-10.1); COR NA(FOR HYPERGLY) 140 mmol/L (136-145); CREATINE KINASE 19 Units/L (26-192); CREATINE KINASE MB < 1.0 ng/mL (0-4.0); CREATININE 0.92 mg/dL (0.55-1.02); LIPASE 386 Units/L (73-393); SODIUM 138 mmol/L (136-145); TOTAL PROTEIN 5.8 g/dL (6.4-8.2); TROPONIN I < 0.02 ng/mL (0-1.5); eGFR NON BLACK RACES > 60 (>60)
--- NOTE | 2021-03-28 17:22 | RAD ---
HISTORYCHEST PAIN CAD, RI, HTN, ASTHMA, COPD, DM, GB, HYST.STUDYCHEST, 1 VIEWCOMPARISONChest radiograph dated March 28, 2021.FINDINGSThe trachea is midline. The cardiac silhouette is unremarkable. The lungs are clear without focal infiltrate or effusion. The bony thorax is unremarkable. Changes of chronic bronchitis/COPD remain. There is a stable left-sided larry catheter CVL.IMPRESSIONNo acute cardiopulmonary findings or changes. Findings chronic bronchitis/COPD are stable.Electronically signed by: JOHNNY JULIAN III (Mar 28, 2021 17:21:13)
[2021-03-28] MEDS ORDERED: ZOFRAN INJ 4 MG VIAL IVP ONE (19:02)
[2021-03-28] MEDS ORDERED: DEMEROL INJ IVP ONE (19:02)
[2021-03-28] MEDS ORDERED: DEMEROL INJ ONE (19:20)
[2021-03-28] MEDS ORDERED: ZOFRAN INJ 4 MG VIAL ONE (19:20)
[2021-03-28] MEDS ORDERED: VENTOLIN or PROAIR HFA IN SCH (20:45)
[2021-03-29] MEDS ORDERED: LIPITOR TAB 10 MG PO SCH (01:30)
[2021-03-29] MEDS ORDERED: PATIENT'S HOME MEDICATION (Alprazolam 0.5 mg tablet) PO SCH (01:30)
[2021-03-29] MEDS ORDERED: CELEXA PO SCH ×2 (01:30→09:00)
[2021-03-29] MEDS ORDERED: GLYCOPYRROLATE FORMOTEROL IN SCH (01:30)
[2021-03-29] MEDS ORDERED: TESSALON PERLES PO PRN (01:30)
[2021-03-29] MEDS ORDERED: ANTIVERT TAB 25 MG PO PRN (01:30)
[2021-03-29] MEDS ORDERED: NITROSTAT SL PRN (01:30)
[2021-03-29] MEDS ORDERED: ARICEPT TAB 5 MG PO SCH (01:30)
[2021-03-29] MEDS ORDERED: ROXICODONE TAB 5 MG PO PRN (01:58)
[2021-03-29] MEDS ORDERED: TYLENOL 325 MG TAB PO PRN (01:59)
[2021-03-29] MEDS: NovoLIN R (or HumuLIN R) SC SCH ×3 (03:32→14:07)
[2021-03-29] MEDS: NS 1,000 ML IV 1,000 ML IV SCH ×2 (03:44→14:07)
[2021-03-29] MEDS: COLACE CAP 100 MG PO SCH ×2 (03:50→08:28)
[2021-03-29] MEDS: MEGACE PO SCH ×2 (03:50→08:29)
[2021-03-29] MEDS: TOPAMAX PO SCH ×2 (03:50→08:29)
[2021-03-29] MEDS: ELIQUIS PO SCH ×2 (03:51→08:34)
[2021-03-29] MEDS: MICRO K EXTEN CAP 10 MEQ PO SCH ×2 (03:51→08:29)
[2021-03-29] MEDS: XANAX PO SCH ×2 (03:51→08:30)
[2021-03-29] MEDS: PROTONIX TAB 40 MG PO SCH ×2 (03:52→08:29)
[2021-03-29 05:53] LABS: BASOPHILS % (AUTO) 0.4 % (0.2-1.0); HEMATOCRIT 33.8 % (36.0-47.0); HEMOGLOBIN 11.1 g/dL (12.0-16.0); LYMPHOCYTES # (AUTO) 1.6 X10^3/uL (1.3-2.9); LYMPHOCYTES % (AUTO) 13.5 % (21.0-51.0); MEAN CORPUSCULAR HEMOGLOBIN 27.2 pg (27.0-34.0); MEAN CORPUSCULAR HGB CONC 32.8 g/dL (33.0-35.0); MEAN CORPUSCULAR VOLUME 82.7 fL (80.0-100.0); MEAN PLATELET VOLUME 7.4 fL (7.4-11.0); MONOCYTES # (AUTO) 1.8 x10^3/uL (0.3-0.8); MONOCYTES % (AUTO) 14.7 % (0.0-13.0); NEUTROPHILS # (AUTO) 8.5 x10^3/uL (2.2-4.8); NEUTROPHILS % (AUTO) 71.4 % (42.0-75.0); PLATELET COUNT 559 X10^3/uL (150.0-450.0); RED BLOOD COUNT 4.09 X10^6/uL (3.5-5.4); RED CELL DISTRIBUTION WIDTH 14.7 % (11.6-16.5)
[2021-03-29 06:31] LABS: ALANINE AMINOTRANSFERASE 23 Units/L (12-78); ALBUMIN 2.3 g/dL (3.4-5.0); ALKALINE PHOSPHATASE 36 Units/L (46-116); ASPARTATE AMINO TRANSFERASE 13 Units/L (15-37); BLOOD UREA NITROGEN 28 mg/dL (7-18); CALCIUM 8.4 mg/dL (8.5-10.1); CARBON DIOXIDE 25.1 mmol/L (21-32); CHLORIDE 105 mmol/L (98-107); COR CA(FOR HYPOALB) 9.8 mg/dL (8.5-10.1); CREATININE 0.78 mg/dL (0.55-1.02); SODIUM 139 mmol/L (136-145); TOTAL PROTEIN 5.8 g/dL (6.4-8.2); eGFR NON BLACK RACES > 60 (>60)
[2021-03-29 07:11] LABS: PLATELET MORPHOLOGY COMMENT NORMAL (NORMAL)
[2021-03-29] MEDS ORDERED: TOPROL XL PO ONE (08:21)
[2021-03-29 08:39] LABS: CKMB % 4.6 % (<4); CREATINE KINASE 22 Units/L (26-192); CREATINE KINASE MB < 1.0 ng/mL (0-4.0); TROPONIN I < 0.02 ng/mL (0-1.5)
[2021-03-29] MEDS ORDERED: SYNTHROID 25 mcg TAB PO SCH (09:00)
[2021-03-29] MEDS ORDERED: ISOSORBIDE MONONITRATE 120 MG PO SCH (09:00)
[2021-03-29] MEDS ORDERED: GLUCOPHAGE XR 24-HR PO SCH (09:00)
[2021-03-29] MEDS ORDERED: ZAROXOLYN PO SCH (09:00)
[2021-03-29] MEDS ORDERED: ALDACTONE TAB 25 MG PO SCH (09:00)
[2021-03-29] MEDS ORDERED: ACCUNEB 1.25 MG NEBULE NEB PRN (09:00)
[2021-03-29] MEDS ORDERED: ISOSORBIDE MONONITRATE ER 24-HR PO SCH (09:00)
[2021-03-29] MEDS ORDERED: TOPROL XL PO SCH (09:00)
[2021-03-29 12:07] VITALS: BP 144/68
[2021-03-29] MEDS ORDERED: SNACK - Diabetic Appropriate PO SCH (20:00)
== END 2021-03-29 14:30 ==
LOC: MED/SURG 15:49 → ER 15:49 → MED/SURG 22:38
PROVIDERS: ADMIT Internal Medicine; ATTEND Internal Medicine
DX: R10.84 Generalized abdominal pain; I10 Essential (primary) hypertension; Z20.822 Contact with and (suspected) exposure to COVID-19; E11.65 Type 2 diabetes mellitus with hyperglycemia; R00.8 Other abnormalities of heart beat; J44.1 Chronic obstructive pulmonary disease with (acute) exacerbation; R07.89 Other chest pain

== ENCOUNTER 2021-04-05 12:26 | Inpatient (IN) ==
[2021-04-05] MEDS ORDERED: LEVAQUIN PREMIX IV 500 MG 500 MG/100 ML BAG IV SCH (16:00)
[2021-04-05] MEDS ORDERED: NS 1/2 1,000 ML IV 1,000 ML IV ONE (16:03)
[2021-04-05] MEDS: NS 1/2 1,000 ML IV 1,000 ML IV SCH (16:21)
[2021-04-05] MEDS: VSL#3 PO SCH (16:22)
[2021-04-05] MEDS: ROBITUSSIN DM PO SCH ×2 (16:22→21:25)
[2021-04-05 16:32] LABS: ALANINE AMINOTRANSFERASE 34 Units/L (12-78); ALKALINE PHOSPHATASE 62 Units/L (46-116); ASPARTATE AMINO TRANSFERASE 15 Units/L (15-37); BLOOD UREA NITROGEN 50 mg/dL (7-18); CALCIUM 8.7 mg/dL (8.5-10.1); CARBON DIOXIDE 20.3 mmol/L (21-32); CHLORIDE 110 mmol/L (98-107); COR CA(FOR HYPOALB) 10.3 mg/dL (8.5-10.1); CREATININE 1.48 mg/dL (0.55-1.02); SODIUM 141 mmol/L (136-145); TOTAL PROTEIN 5.9 g/dL (6.4-8.2); eGFR NON BLACK RACES 37 (>60)
[2021-04-05 16:38] LABS: BASOPHILS % (AUTO) 0.1 % (0.2-1.0); EOSINOPHILS # (AUTO) 0.1 x10^3/uL (0.0-0.2); EOSINOPHILS % (AUTO) 0.3 % (0.9-2.9); HEMATOCRIT 29.8 % (36.0-47.0); HEMOGLOBIN 9.7 g/dL (12.0-16.0); LYMPHOCYTES # (AUTO) 1.4 X10^3/uL (1.3-2.9); LYMPHOCYTES % (AUTO) 4.8 % (21.0-51.0); MEAN CORPUSCULAR HEMOGLOBIN 27.5 pg (27.0-34.0); MEAN CORPUSCULAR HGB CONC 32.6 g/dL (33.0-35.0); MEAN CORPUSCULAR VOLUME 84.3 fL (80.0-100.0); MEAN PLATELET VOLUME 7.3 fL (7.4-11.0); MONOCYTES # (AUTO) 2.1 x10^3/uL (0.3-0.8); MONOCYTES % (AUTO) 7.1 % (0.0-13.0); NEUTROPHILS # (AUTO) 26.2 x10^3/uL (2.2-4.8); NEUTROPHILS % (AUTO) 87.7 % (42.0-75.0); PLATELET COUNT 358 X10^3/uL (150.0-450.0); RED BLOOD COUNT 3.54 X10^6/uL (3.5-5.4); RED CELL DISTRIBUTION WIDTH 15.4 % (11.6-16.5); WHITE BLOOD COUNT 29.9 X10^3/uL (3.6-10.0)
[2021-04-05 16:39] LABS: LACTIC ACID 1.4 mmol/L (0.4-2.0)
--- NOTE | 2021-04-05 16:49 | RAD ---
HISTORYPNEUMONIA HX: CAD, NM, HTN, ASTHMA, COPD, DM SX: GB, HYST..brSTUDYCHEST, 1 VIEWCOMPARISONPortable chest March 28, 2021FINDINGSThe trachea is midline. The cardiac silhouette is unremarkable. A left internal jugular port is in place tip in the right atrium. The lungs are clear without focal infiltrate or effusion. Chronic changes of fibrosis are seen right greater than left upper lung field but are stable compared to March 28, 2021 as well as older films of March 14, 2021. The bony thorax is unremarkable. Right shoulder prosthesis is in place.IMPRESSIONChronic lung changes in the apices with left sided port in place but no acute cardiopulmonary findings and no significant change compared to most recent prior chest film March 28, 2021.Electronically signed by: KALYN JENSEN (Apr 05, 2021 16:48:33)
[2021-04-05 17:15] LABS: PLATELET MORPHOLOGY COMMENT NORMAL (NORMAL)
[2021-04-05 17:23] LABS: BILIRUBIN,URINE 1+ (NEGATIVE); BLOOD/HEMOGLOBIN,URINE 2+ (NEGATIVE); GLUCOSE, URINE NEGATIVE (NEGATIVE); KETONES,URINE NEGATIVE (NEGATIVE); LEUKOCYTE ESTERASE ,URINE 1+ (NEGATIVE); NITRITES,URINE NEGATIVE (NEGATIVE); PROTEIN,URINE 2+ (NEGATIVE); UROBILINOGEN,URINE NORMAL (NORMAL)
[2021-04-05 17:32] LABS: APPEARANCE,URINE SLIGHTLY HAZY (CLEAR); BACTERIA,URINE TRACE /HPF (NEGATIVE); COLOR,URINE YELLOW (YELLOW); SQUAMOUS EPITHELIAL CELL,UR FEW /HPF (NEGATIVE); YEAST,URINE FEW /HPF (NEGATIVE)
[2021-04-05] MEDS: PROVENTIL NEB TX 0.083% 2.5MG/ 3ML NEB SCH (17:55)
[2021-04-05] MEDS ORDERED: PHARMACY CONSULT LTC MEDICATIONS XX SCH (19:00)
[2021-04-05] MEDS: FORTAZ or TAZICEF VIAL INJ 1 G in NS 100 ML IV + SPIKE MINIBAG* 100 ML IV SCH (21:26)
[2021-04-06] MEDS: PROVENTIL NEB TX 0.083% 2.5MG/ 3ML NEB SCH ×4 (01:00→19:09)
[2021-04-06] MEDS ORDERED: NS 1/2 1,000 ML IV 1,000 ML IV ONE (05:14)
[2021-04-06] MEDS: NS 1/2 1,000 ML IV 1,000 ML IV SCH (05:27)
[2021-04-06] MEDS: FORTAZ or TAZICEF VIAL INJ 1 G in NS 100 ML IV + SPIKE MINIBAG* 100 ML IV SCH (05:27)
[2021-04-06 06:16] LABS: BASOPHILS % (AUTO) 0 % (0.2-1.0); EOSINOPHILS # (AUTO) 0.1 x10^3/uL (0.0-0.2); EOSINOPHILS % (AUTO) 0.3 % (0.9-2.9); HEMATOCRIT 31.8 % (36.0-47.0); HEMOGLOBIN 10.3 g/dL (12.0-16.0); LYMPHOCYTES # (AUTO) 1.6 X10^3/uL (1.3-2.9); LYMPHOCYTES % (AUTO) 5.3 % (21.0-51.0); MEAN CORPUSCULAR HEMOGLOBIN 27.3 pg (27.0-34.0); MEAN CORPUSCULAR HGB CONC 32.5 g/dL (33.0-35.0); MEAN CORPUSCULAR VOLUME 84.1 fL (80.0-100.0); MEAN PLATELET VOLUME 7.4 fL (7.4-11.0); MONOCYTES % (AUTO) 6.7 % (0.0-13.0); NEUTROPHILS # (AUTO) 26.8 x10^3/uL (2.2-4.8); NEUTROPHILS % (AUTO) 87.7 % (42.0-75.0); PLATELET COUNT 363 X10^3/uL (150.0-450.0); RED BLOOD COUNT 3.78 X10^6/uL (3.5-5.4); RED CELL DISTRIBUTION WIDTH 15.5 % (11.6-16.5)
[2021-04-06 06:19] LABS: WHITE BLOOD COUNT 30.5 X10^3/uL (3.6-10.0)
[2021-04-06 06:34] LABS: ALBUMIN 1.9 g/dL (3.4-5.0); CARBON DIOXIDE 16.5 mmol/L (21-32); COR CA(FOR HYPOALB) 10.7 mg/dL (8.5-10.1); CREATININE 1.24 mg/dL (0.55-1.02); TOTAL PROTEIN 6.1 g/dL (6.4-8.2)
[2021-04-06] MEDS: VSL#3 PO SCH (08:27)
[2021-04-06] MEDS: ROBITUSSIN DM PO SCH (08:35)
[2021-04-06] MEDS ORDERED: LEVAQUIN PREMIX IV 750 MG 750 MG/150 ML BAG IV SCH (09:00)
--- NOTE | 2021-04-06 09:52 | DR.UPDATE ---
H&P Update History and Physical Update: History and Physical reviewed and patient examined. Changes noted: Yes with the following: WAS A DIRECT ADMISSION TO THE HOSPITAL YESTERDAY DUE TO WBC OF 29.9, PERSISTENT COUGH AND SHORTNESS OF BREATH, AMS, AND GENERALIZED WEAKNESS. PATIENT WAS TREATED IN THE HOSPITAL FROM 03/23-03/29 FOR PNEUMONIA AND COPD EXACERBATION. SHE CONTINUED TO RECEIVE ORAL ANTIBIOTICS AND NEBULIZER TREATMENTS AFTER SHE WAS DISCHARGED TO THE HOSPITAL. PATIENTS DAUGHTER REPORTS THAT PATIENT HAS BEEN LETHARGIC, CONFUSED, AND HAS CONTINUED TO HAVE A PERSISTENT COUGH DESPITE COMPLIANCE WITH MEDICATIONS. ON ARRIVAL TO THE HOSPTIAL, PATIENT WAS NOTED TO BE LETHARGIC. SHE OPENED EYES TO VERBAL STIMULI, BUT DID NOT FOLLOW COMMANDS. HER VITALS ON ARRIVAL WERE 98.7-103-24-98%-120/61. LABS WERE OBTAINED. ABNORMAL LAB VALUES INCLUDE THE FOLLOWING: WBC 29.9, HGB 9.7, HCT 29.8, POTASSIUM 5.3, CHLORIDE 110, CARBON DIOXIDE 20.3, BUN 50, CREATININE 1.48, GLUCOSE 104, TOTAL PROTEIN 5.9, ALBUMIN 2.0. URINALYSIS REVEALED: WBC 3-5, RBC 3-5, LEUKOCYTES 1+, BACTERIA TRACE, OCCULT BLOOD 2+, PROTEIN 2+. CHEST XRAY REVEALED: The trachea is midline. The cardiac silhouette is unremarkable. A left internal jugular port is in place tip in the right atrium. The lungs are clear without focal infiltrate or effusion. Chronic changes of fibrosis are seen right greater than left upper lung field but are stable compared to March 28, 2021 as well as older films of March 14, 2021. The bony thorax is unremarkable. Right shoulder prosthesis is in place. SHE WAS STARTED ON 1/2NS AT 75 ML/HR, LEVAQUIN 750MG IV Q48H, FORTAZ 1G IV BID, AND ALBUTEROL NEBS Q6H FOR TREATMENT OF PNUEMONIA, UTI, SEPSIS. DUE TO DECREASED MENTAL STATUS, WE WILL HOLD HER ORAL MEDICATIONS AT THIS TIME. DUE TO PATIENTS CHRONIC PAIN, WE WILL ADD A FENTANYL 25MCG/HR PATCH AND ATROPINE DROPS Q2-4H SL PRN FOR SECRETIONS. OTHERWISE, WE WILL FOLLOW UP WITH AM LABS AND CONTINUE TO MONITOR. TIME SPENT ON CLINICAL ASSESSMENT, REVIEWING LABS AND IMAGING, DECISION MAKING, AND DOCUMENTATION GREATER THAN 75 MINUTES. H&P Reviewed: Yes Patient was examined?: Yes
[2021-04-06] MEDS: ISOPTO ATROPINE SL PRN (10:30)
[2021-04-06] MEDS: CHECK PATCH XX SCH ×2 (10:42→20:14)
[2021-04-06 13:45] VITALS: BMI 25.0
[2021-04-06] MEDS ORDERED: NYSTATIN POWDER TOP PRN (15:10)
[2021-04-06] MEDS ORDERED: OFIRMEV IV 1000 MG VIAL 1,000 MG/100 ML VIAL IV PRN (15:40)
[2021-04-06] MEDS: D5W 1,000 ML IV 1,000 ML IV SCH (16:53)
[2021-04-06] MEDS: BUTT CREAM (COMPOUND) TOP SCH (20:14)
[2021-04-06] MEDS: NORCO 7.5/325 MG TAB PO SCH (20:15)
[2021-04-06] MEDS ORDERED: FORTAZ or TAZICEF VIAL INJ 1 G in NS 100 ML IV + SPIKE MINIBAG* 100 ML IV SCH (21:00)
[2021-04-06] MEDS: MILK OF MAGNESIA PO SCH (21:52)
[2021-04-07] MEDS: PROVENTIL NEB TX 0.083% 2.5MG/ 3ML NEB SCH ×4 (00:22→16:50)
[2021-04-07 05:48] LABS: BASOPHILS % (AUTO) 0.1 % (0.2-1.0); EOSINOPHILS # (AUTO) 0.1 x10^3/uL (0.0-0.2); EOSINOPHILS % (AUTO) 0.3 % (0.9-2.9); HEMATOCRIT 30.4 % (36.0-47.0); HEMOGLOBIN 9.8 g/dL (12.0-16.0); LYMPHOCYTES # (AUTO) 1.5 X10^3/uL (1.3-2.9); LYMPHOCYTES % (AUTO) 6.4 % (21.0-51.0); MEAN CORPUSCULAR HEMOGLOBIN 26.9 pg (27.0-34.0); MEAN CORPUSCULAR HGB CONC 32.3 g/dL (33.0-35.0); MEAN CORPUSCULAR VOLUME 83.4 fL (80.0-100.0); MEAN PLATELET VOLUME 7.2 fL (7.4-11.0); MONOCYTES # (AUTO) 1.8 x10^3/uL (0.3-0.8); MONOCYTES % (AUTO) 7.4 % (0.0-13.0); NEUTROPHILS # (AUTO) 20.6 x10^3/uL (2.2-4.8); NEUTROPHILS % (AUTO) 85.8 % (42.0-75.0); PLATELET COUNT 334 X10^3/uL (150.0-450.0); RED BLOOD COUNT 3.64 X10^6/uL (3.5-5.4); RED CELL DISTRIBUTION WIDTH 15.2 % (11.6-16.5); WHITE BLOOD COUNT 24.1 X10^3/uL (3.6-10.0)
--- NOTE | 2021-04-07 05:54 | RAD ---
HISTORYSOB HX: CAD, NM, HTN, ASTHMA, COPD, DM SX: GB, HYST.STUDYCHEST, 1 [id number]/21/2021FINDINGSThe trachea is midline. Left Port-A-Cath tip in proximal right atrium unchanged. The cardiac silhouette is unremarkable. The lungs are clear without focal infiltrate or effusion. The bony thorax is unremarkable.IMPRESSIONNo acute cardiopulmonary findings .Electronically signed by: Luis A Mayers (Apr 07, 2021 05:53:17)
[2021-04-07 05:57] LABS: PLATELET MORPHOLOGY COMMENT NORMAL (NORMAL)
[2021-04-07 06:05] LABS: ALANINE AMINOTRANSFERASE 22 Units/L (12-78); ALBUMIN 1.7 g/dL (3.4-5.0); ALKALINE PHOSPHATASE 67 Units/L (46-116); ASPARTATE AMINO TRANSFERASE 12 Units/L (15-37); BLOOD UREA NITROGEN 28 mg/dL (7-18); CALCIUM 8.5 mg/dL (8.5-10.1); CARBON DIOXIDE 18.2 mmol/L (21-32); CHLORIDE 102 mmol/L (98-107); COR CA(FOR HYPOALB) 10.3 mg/dL (8.5-10.1); COR NA(FOR HYPERGLY) 131 mmol/L (136-145); CREATININE 1.02 mg/dL (0.55-1.02); SODIUM 131 mmol/L (136-145); TOTAL PROTEIN 5.9 g/dL (6.4-8.2); eGFR NON BLACK RACES 57 (>60)
[2021-04-07] MEDS: D5W 1,000 ML IV 1,000 ML IV SCH ×2 (06:56→20:20)
[2021-04-07] MEDS: FORTAZ or TAZICEF VIAL INJ 1 G in NS 100 ML IV + SPIKE MINIBAG* 100 ML IV SCH ×3 (08:40→21:05)
[2021-04-07] MEDS: LEVAQUIN PREMIX IV 750 MG 750 MG/150 ML BAG IV SCH (08:42)
[2021-04-07] MEDS: NORCO 7.5/325 MG TAB PO SCH ×4 (08:43→20:21)
[2021-04-07] MEDS: MILK OF MAGNESIA PO SCH ×2 (08:55→20:20)
[2021-04-07] MEDS: BUTT CREAM (COMPOUND) TOP SCH ×4 (08:56→20:20)
[2021-04-07] MEDS: CHECK PATCH XX SCH ×2 (08:56→20:20)
[2021-04-07] MEDS: ISOPTO ATROPINE SL PRN (08:58)
[2021-04-08] MEDS: PROVENTIL NEB TX 0.083% 2.5MG/ 3ML NEB SCH ×4 (00:04→18:45)
[2021-04-08] MEDS: FORTAZ or TAZICEF VIAL INJ 1 G in NS 100 ML IV + SPIKE MINIBAG* 100 ML IV SCH ×3 (06:10→20:59)
[2021-04-08] MEDS: D5W 1,000 ML IV 1,000 ML IV SCH ×3 (06:11→20:58)
[2021-04-08 06:15] LABS: BASOPHILS % (AUTO) 0.1 % (0.2-1.0); EOSINOPHILS # (AUTO) 0.2 x10^3/uL (0.0-0.2); EOSINOPHILS % (AUTO) 0.8 % (0.9-2.9); HEMATOCRIT 27.8 % (36.0-47.0); HEMOGLOBIN 9.2 g/dL (12.0-16.0); LYMPHOCYTES # (AUTO) 1.4 X10^3/uL (1.3-2.9); LYMPHOCYTES % (AUTO) 7.1 % (21.0-51.0); MEAN CORPUSCULAR HEMOGLOBIN 27.6 pg (27.0-34.0); MEAN CORPUSCULAR HGB CONC 33.2 g/dL (33.0-35.0); MEAN CORPUSCULAR VOLUME 83.1 fL (80.0-100.0); MONOCYTES # (AUTO) 1.6 x10^3/uL (0.3-0.8); MONOCYTES % (AUTO) 7.8 % (0.0-13.0); NEUTROPHILS # (AUTO) 17.1 x10^3/uL (2.2-4.8); NEUTROPHILS % (AUTO) 84.2 % (42.0-75.0); PLATELET COUNT 330 X10^3/uL (150.0-450.0); RED BLOOD COUNT 3.34 X10^6/uL (3.5-5.4); RED CELL DISTRIBUTION WIDTH 14.8 % (11.6-16.5); WHITE BLOOD COUNT 20.4 X10^3/uL (3.6-10.0)
[2021-04-08 06:28] LABS: ALANINE AMINOTRANSFERASE 18 Units/L (12-78); ALBUMIN 1.7 g/dL (3.4-5.0); ALKALINE PHOSPHATASE 82 Units/L (46-116); ASPARTATE AMINO TRANSFERASE 13 Units/L (15-37); BLOOD UREA NITROGEN 21 mg/dL (7-18); CALCIUM 8.6 mg/dL (8.5-10.1); CARBON DIOXIDE 18.6 mmol/L (21-32); CHLORIDE 99 mmol/L (98-107); COR CA(FOR HYPOALB) 10.4 mg/dL (8.5-10.1); CREATININE 0.96 mg/dL (0.55-1.02); SODIUM 129 mmol/L (136-145); eGFR NON BLACK RACES > 60 (>60)
[2021-04-08] MEDS: BUTT CREAM (COMPOUND) TOP SCH ×4 (08:22→20:57)
[2021-04-08] MEDS: CHECK PATCH XX SCH ×2 (08:23→20:58)
[2021-04-08] MEDS: NORCO 7.5/325 MG TAB PO SCH ×4 (08:24→20:58)
[2021-04-08] MEDS: MILK OF MAGNESIA PO SCH ×2 (08:24→20:58)
[2021-04-08] MEDS: LEVAQUIN PREMIX IV 750 MG 750 MG/150 ML BAG IV SCH (08:24)
[2021-04-08] MEDS: CELEXA PO SCH (09:55)
[2021-04-08] MEDS: CARDIZEM CD 240 MG 24-HR PO SCH (09:55)
[2021-04-08] MEDS: XANAX PO SCH ×2 (09:55→20:59)
[2021-04-08] MEDS ORDERED: PHARMACY CONSULT - VANCOMYCIN XX SCH (10:00)
[2021-04-08] MEDS ORDERED: VANCOMYCIN IV *PREMIX 1.25 G/250 ML BAG 1.25 G/250 ML PIGGYBACK IV ONE (10:00)
[2021-04-08] MEDS: ARICEPT TAB 5 MG PO SCH (20:57)
[2021-04-08] MEDS: VANCOMYCIN IV *PREMIX 1 G/200 ML BAG 1 G/200 ML PIGGYBACK IV SCH (20:59)
[2021-04-09] MEDS: PROVENTIL NEB TX 0.083% 2.5MG/ 3ML NEB SCH ×4 (00:30→17:12)
[2021-04-09] MEDS: D5W 1,000 ML IV 1,000 ML IV SCH ×3 (04:44→23:00)
[2021-04-09] MEDS: FORTAZ or TAZICEF VIAL INJ 1 G in NS 100 ML IV + SPIKE MINIBAG* 100 ML IV SCH ×3 (05:20→21:29)
[2021-04-09 05:49] LABS: BASOPHILS % (AUTO) 0.3 % (0.2-1.0); EOSINOPHILS # (AUTO) 0.2 x10^3/uL (0.0-0.2); EOSINOPHILS % (AUTO) 1.1 % (0.9-2.9); HEMATOCRIT 25.7 % (36.0-47.0); HEMOGLOBIN 8.6 g/dL (12.0-16.0); LYMPHOCYTES # (AUTO) 1.1 X10^3/uL (1.3-2.9); LYMPHOCYTES % (AUTO) 7.8 % (21.0-51.0); MEAN CORPUSCULAR HEMOGLOBIN 27.6 pg (27.0-34.0); MEAN CORPUSCULAR HGB CONC 33.3 g/dL (33.0-35.0); MEAN CORPUSCULAR VOLUME 82.9 fL (80.0-100.0); MEAN PLATELET VOLUME 6.9 fL (7.4-11.0); MONOCYTES # (AUTO) 1.1 x10^3/uL (0.3-0.8); MONOCYTES % (AUTO) 7.7 % (0.0-13.0); NEUTROPHILS # (AUTO) 12.2 x10^3/uL (2.2-4.8); NEUTROPHILS % (AUTO) 83.1 % (42.0-75.0); PLATELET COUNT 296 X10^3/uL (150.0-450.0); RED CELL DISTRIBUTION WIDTH 14.7 % (11.6-16.5); WHITE BLOOD COUNT 14.7 X10^3/uL (3.6-10.0)
[2021-04-09 05:54] LABS: ALANINE AMINOTRANSFERASE 19 Units/L (12-78); ALBUMIN 1.6 g/dL (3.4-5.0); ALKALINE PHOSPHATASE 57 Units/L (46-116); ASPARTATE AMINO TRANSFERASE 15 Units/L (15-37); BLOOD UREA NITROGEN 14 mg/dL (7-18); CALCIUM 8.3 mg/dL (8.5-10.1); CARBON DIOXIDE 19.8 mmol/L (21-32); CHLORIDE 103 mmol/L (98-107); COR CA(FOR HYPOALB) 10.2 mg/dL (8.5-10.1); CREATININE 0.88 mg/dL (0.55-1.02); SODIUM 133 mmol/L (136-145); TOTAL PROTEIN 5.7 g/dL (6.4-8.2); eGFR NON BLACK RACES > 60 (>60)
[2021-04-09] MEDS: BUTT CREAM (COMPOUND) TOP SCH ×4 (09:07→21:28)
[2021-04-09] MEDS: CELEXA PO SCH (09:10)
[2021-04-09] MEDS: NORCO 7.5/325 MG TAB PO SCH ×4 (09:10→21:30)
[2021-04-09] MEDS: CARDIZEM CD 240 MG 24-HR PO SCH (09:10)
[2021-04-09] MEDS: VANCOMYCIN IV *PREMIX 1 G/200 ML BAG 1 G/200 ML PIGGYBACK IV SCH ×2 (09:11→22:00)
[2021-04-09] MEDS: XANAX PO SCH ×2 (09:11→21:29)
[2021-04-09] MEDS: CHECK PATCH XX SCH ×2 (09:12→21:33)
--- NOTE | 2021-04-09 10:21 | PCM.PROG ---
Progress Note - Progress Note for Day of Date of Exam: 04/07/21 - Subjective Subjective: WAS ADMITTED FOR TREATMENT OF BRONCHOPNEUMONIA, UTI, AND SEPSIS. TODAY, SHE IS MORE ALERT THAN SHE WAS YESTERDAY. SHE OPENS EYES TO VERBAL STIMULI AND RESPONDS VERBALLY. PATIENTS DAUGTER REPORTS HTAT SHE CONTINUES WITH INTERMITTENT CONFUSION. SHE HAS HAD DECREASED APPETITE WELL. ON EXAMINATION, HEART IS REGULAR IN RATE AND RHYTHM. BILATERAL LUNGS NOTED WITH RHONCHI THROUGHOUT. ABDOMEN IS ROUND, SOFT, AND NON-TENDER WITH NORMAL BOWEL SOUNDS NOTED IN ALL QUADRANTS. HER VITALS THIS MORNING ARE: 97.4-100-18-97%-133/66. LABS WERE OBTAINED. ABNORMAL LAB VALUES INCLUDE THE FOLLOWING: WBC 24.1, HGB 9.8, HCT 30.4, SODIUM 131, CARBON DIOXIDE 18.2, BUN 28, GLUCOSE 112, AST 12, TOTAL PROTEIN 5.9, ALBUMIN 1.7. BLOOD AND URINE CULTURES ARE PENDING. SHE IS CURRENTLY RECEIVING D5W AT 75 ML/HR, LEVAQUIN 750MG IV Q48H, FORTAZ 1G IV BID, ALBUTEROL NEBS Q6H, FENTANYL 25MCG/HR PATCH, ATROPINE DROPS PRN SECRETIONS. WE WILL REVIEW HER HOME MEDICATIONS NOW THAT SHE IS MORE ALERT AND RESUME APPROPRIATE. OTHERWISE, WE PLAN TO FOLLOW UP WITH AM LABS AND CONTINUE TO MONITOR. TIME SPENT ON CLINICAL ASSESSMENT, REVIEWING LABS AND IMAGING, DECISION MAKING, AND DOCUMENTATION GREATER THAN 45 MINUTES. - Past Medical Family Social History Past Med/Fam/Surg Hx: No changes since H&P Allergies: Allergies morphine Allergy (Verified 08/06/20 13:53) rofecoxib [From Vioxx] Allergy (Verified 08/06/20 13:53) - Review of Systems ROS: No change since H&P - Vital Signs and I&O's Vital Signs: Temperature 98.3 F Pulse Rate [Right Brachial] 92 Pulse Rate 111 Respiratory Rate 17 Blood Pressure [Right Arm] 143/74 Blood Pressure 154/67 O2 Sat by Pulse Oximetry 98 Intake and Output: Intake & Output 04/06/21 04/07/21 04/08/21 04/09/21 11:59 11:59 11:59 11:59 Intake Total 5590 / 5590 2146 / 2146 2533 / 2533 3991 / 3991 Balance 5590 / 5590 2146 / 2146 2533 / 2533 3991 / 3991 - Physical Exam Oriented: Person Eyes: Normal Ear: Normal Nose: Normal Throat: Normal Respiratory: Generalized, Diminished, Rhonchi Cardiovascular: Normal : Normal Auscultation: Bowel Sounds: Normal Palpation: Normal Tenderness: Normal Skin: Normal Musculoskeletal: Normal Psychiatric: Normal Mood Description: Calm Affect: Normal Speech Pattern: Clear - Laboratory and Diagnostics Result Diagrams: 04/09/21 05:00 04/09/21 05:15 Labs: 04/08/21 13:25 Stool Stool Culture - Preliminary 04/08/21 13:25 Stool - Final 04/05/21 15:55 Blood Blood Culture - Final 04/05/21 16:05 Blood Blood Culture - Preliminary 04/05/21 17:05 Urine,Clean Catch Urine Culture - Final Laboratory WBC 14.7 X10^3/uL (3.6-10.0) H 04/09/21 05:00 RBC 3.10 X10^6/uL (3.5-5.4) L 04/09/21 05:00 Hgb 8.6 g/dL (12.0-16.0) L 04/09/21 05:00 Hct 25.7 % (36.0-47.0) L 04/09/21 05:00 MCV 82.9 fL (80.0-100.0) 04/09/21 05:00 MCH 27.6 pg (27.0-34.0) 04/09/21 05:00 MCHC 33.3 g/dL (33.0-35.0) 04/09/21 05:00 RDW 14.7 % (11.6-16.5) 04/09/21 05:00 Plt Count 296 X10^3/uL (150.0-450.0) 04/09/21 05:00 Plt Count Comment Adequate (ADEQUATE) 04/07/21 05:16 MPV 6.9 fL (7.4-11.0) L 04/09/21 05:00 Neut % (Auto) 83.1 % (42.0-75.0) H 04/09/21 05:00 Lymph % (Auto) 7.8 % (21.0-51.0) L 04/09/21 05:00 [place] % (Auto) 7.7 % (0.0-13.0) 04/09/21 05:00 Eos % (Auto) 1.1 % (0.9-2.9) 04/09/21 05:00 Baso % (Auto) 0.3 % (0.2-1.0) 04/09/21 05:00 Neut # (Auto) 12.2 x10^3/uL (2.2-4.8) H 04/09/21 05:00 Lymph # (Auto) 1.1 X10^3/uL (1.3-2.9) L 04/09/21 05:00 [place] # (Auto) 1.1 x10^3/uL (0.3-0.8) H 04/09/21 05:00 Eos # (Auto) 0.2 x10^3/uL (0.0-0.2) 04/09/21 05:00 Baso # (Auto) 0.0 X10^3/uL (0.0-0.1) 04/09/21 05:00 Absolute Nucleated RBC 0.0 /100WBC 04/09/21 05:00 Total Counted 100 04/07/21 05:16 Neutrophils % (Manual) 86 % (39-76) H 04/07/21 05:16 Lymphocytes % (Manual) 5 % (13-43) L 04/07/21 05:16 Monocytes % (Manual) 8 % (4-9) 04/07/21 05:16 Eosinophils % (Manual) 1 % (0-6) 04/07/21 05:16 Plt Morphology Comment Normal (NORMAL) 04/07/21 05:16 RBC Morphology Normal (NORMAL) 04/07/21 05:16 Sodium 133 mmol/L (136-145) L 04/09/21 05:15 Corrected Sodium TNP 04/09/21 05:15 Potassium 3.6 mmol/L (3.5-5.1) 04/09/21 05:15 Chloride 103 mmol/L (98-107) 04/09/21 05:15 Carbon Dioxide 19.8 mmol/L (21-32) L 04/09/21 05:15 BUN 14 mg/dL (7-18) 04/09/21 05:15 Creatinine 0.88 mg/dL (0.55-1.02) 04/09/21 05:15 Est GFR (MDRD) Af Amer > 60 (>60) 04/09/21 05:15 Est GFR (MDRD) Non-Af > 60 (>60) 04/09/21 05:15 Glucose 91 mg/dL (65-99) 04/09/21 05:15 POC Glucose (mg/dL) 90 mg/dL (65-99) 04/09/21 05:47 Lactic Acid 1.4 mmol/L (0.4-2.0) 04/05/21 15:55 Calcium 8.3 mg/dL (8.5-10.1) L 04/09/21 05:15 Corrected Calcium 10.2 mg/dL (8.5-10.1) H 04/09/21 05:15 Total Bilirubin 0.30 mg/dL (0.2-1.0) 04/09/21 05:15 AST 15 Units/L (15-37) 04/09/21 05:15 ALT 19 Units/L (12-78) 04/09/21 05:15 Alkaline Phosphatase 57 Units/L (46-116) 04/09/21 05:15 Total Protein 5.7 g/dL (6.4-8.2) L 04/09/21 05:15 Albumin 1.6 g/dL (3.4-5.0) L 04/09/21 05:15 Globulin 4.1 g/dL (2.5-4.5) 04/09/21 05:15 Albumin/Globulin Ratio 0.4 Ratio (1.1-2.1) L 04/09/21 05:15 Specimen Type Catherized urine 04/05/21 17:05 Urine Color Yellow (YELLOW) 04/05/21 17:05 Urine Appearance Slightly hazy (CLEAR) 04/05/21 17:05 Urine pH 5.0 (5.0 - 8.0) 04/05/21 17:05 Ur Specific [place] 1.025 (1.000-1.030) 04/05/21 17:05 Urine Protein 2+ (NEGATIVE) 04/05/21 17:05 Urine Glucose (UA) Negative (NEGATIVE) 04/05/21 17:05 Urine Ketones Negative (NEGATIVE) 04/05/21 17:05 Urine Occult Blood 2+ (NEGATIVE) 04/05/21 17:05 Urine Nitrite Negative (NEGATIVE) 04/05/21 17:05 Urine Bilirubin 1+ (NEGATIVE) 04/05/21 17:05 Urine Urobilinogen Normal (NORMAL) 04/05/21 17:05 Ur Leukocyte Esterase 1+ (NEGATIVE) 04/05/21 17:05 Urine RBC 3-5 /HPF (0-3) A 04/05/21 17:05 Urine WBC 3-5 /HPF (0-5) 04/05/21 17:05 Ur Squamous Epith Cells Few /HPF (NEGATIVE) 04/05/21 17:05 Urine Bacteria Trace /HPF (NEGATIVE) 04/05/21 17:05 Urine Yeast Few /HPF (NEGATIVE) 04/05/21 17:05 Ur Culture Indicated? No/not indicated 04/05/21 17:05 SARS-CoV-2 (PCR) Negative (NEGATIVE) 04/05/21 13:10 Influenza Type A (PCR) Negative (NEGATIVE) 04/05/21 13:10 Influenza Type B (PCR) Negative (NEGATIVE) 04/05/21 13:10 RSV (PCR) Negative (NEGATIVE) 04/05/21 13:10 - Plan (1) Bronchopneumonia Status: Acute Plan: D5W AT 75 ML/HR, LEVAQUIN 750MG IV Q48H, FORTAZ 1G IV BID, ALBUTEROL NEBS Q6H, FENTANYL 25MCG/HR PATCH, ATROPINE DROPS PRN SECRETIONS. (2) UTI (urinary tract infection) Status: Acute Qualifiers: Urinary tract infection type: acute cystitis Hematuria presence: without hematuria Qualified Code(s): N30.00 - Acute cystitis without hematuria (3) Sepsis Status: Acute Qualifiers: Sepsis type: sepsis due to unspecified organism Sepsis acute organ dysfunction status: unspecified Qualified Code(s): A41.9 - Sepsis, unspecified organism
--- NOTE | 2021-04-09 10:33 | PCM.PROG ---
Progress Note - Progress Note for Day of Date of Exam: 04/08/21 - Subjective Subjective: WAS ADMITTED FOR TREATMENT OF BRONCHOPNEUMONIA, UTI, AND SEPSIS. TODAY, SHE ALERT, SITTING UP IN BED ON MORNING ROUNDS. SHE RESPONDS VERBALLY AND IS ABLE TO FOLLOW COMMANDS. PATIENTS CHRIS REPORTS THAAT SHE CONTINUES WITH INTERMITTENT CONFUSION AND WEAKNESS. SHE HAS HAD DECREASED APPETITE WELL. ON EXAMINATION, SHE IS TACHYCARDIC WITH HR 110-130 bpm. BILATERAL LUNGS NOTED WITH RHONCHI THROUGHOUT. ABDOMEN IS ROUND, SOFT, AND NON- TENDER WITH NORMAL BOWEL SOUNDS NOTED IN ALL QUADRANTS. HER VITALS THIS MORNING ARE: 99.2-131-18-99%-131/74. LABS WERE OBTAINED. ABNORMAL LAB VALUES INCLUDE THE FOLLOWING: WBC 20.4, RBC 3.34, HGB 9.2, HCT 27.8, SODIUM 129, CARBON DIOXIDE 18.6, BUN 21, GLUCOSE 107, AST 13, TOTAL PROTEIN 6.0, ALBUMIN 1.7. BLOOD AND URINE CULTURES ARE PENDING. PRELIMINARY BLOOD CULTURE ARE POSITIVE FOR GROWTH OF GRAM POSITIVE COCCI. SHE IS CURRENTLY RECEIVING D5W AT 75 ML/HR, LEVAQUIN 750MG IV Q48H, FORTAZ 1G IV BID, ALBUTEROL NEBS Q6H, FENTANYL 25MCG/HR PATCH, ATROPINE DROPS PRN SECRETIONS. MOST OF HER HOME MEDICATINS WERE RESUMED. WE WILL RESUME HER CARDIZEM TODAY. WE WILL ALSO DISCONTINUE THE LEVAQUIN AND START VANCOMYCIN. OTHERWISE, WE PLAN TO FOLLOW UP WITH AM LABS AND CONTINUE TO MONITOR. TIME SPENT ON CLINICAL ASSESSMENT, REVIEWING LABS AND IMAGING, DECISION MAKING, AND DOCUMENTATION GREATER THAN 45 MINUTES. - Past Medical Family Social History Past Med/Fam/Surg Hx: No changes since H&P Allergies: Allergies morphine Allergy (Verified 08/06/20 13:53) rofecoxib [From Vioxx] Allergy (Verified 08/06/20 13:53) - Review of Systems ROS: No change since H&P - Vital Signs and I&O's Vital Signs: Temperature 98.3 F Pulse Rate [Right Brachial] 92 Pulse Rate 111 Respiratory Rate 17 Blood Pressure [Right Arm] 143/74 Blood Pressure 154/67 O2 Sat by Pulse Oximetry 98 Intake and Output: Intake & Output 04/06/21 04/07/21 04/08/21 04/09/21 11:59 11:59 11:59 11:59 Intake Total 5590 / 5590 2146 / 2145 2533 / 2533 3991 / 3991 Balance 5590 / 5590 2145 / 6 2533 / 2533 2521 / 3991 - Physical Exam Oriented: Person Eyes: Normal Ear: Normal Nose: Normal Throat: Normal Respiratory: Generalized, Diminished, Rhonchi Cardiovascular: Normal : Normal Auscultation: Bowel Sounds: Normal Palpation: Normal Tenderness: Normal Skin: Normal Musculoskeletal: Normal Psychiatric: Normal Mood Description: Calm Affect: Normal Speech Pattern: Clear - Laboratory and Diagnostics Result Diagrams: 04/09/21 05:00 04/09/21 05:15 Labs: 04/08/21 13:25 Stool Stool Culture - Preliminary 04/08/21 13:25 Stool - Final 04/05/21 15:55 Blood Blood Culture - Final 04/05/21 16:05 Blood Blood Culture - Preliminary 04/05/21 17:05 Urine,Clean Catch Urine Culture - Final Laboratory WBC 14.7 X10^3/uL (3.6-10.0) H 04/09/21 05:00 RBC 3.10 X10^6/uL (3.5-5.4) L 04/09/21 05:00 Hgb 8.6 g/dL (12.0-16.0) L 04/09/21 05:00 Hct 25.7 % (36.0-47.0) L 04/09/21 05:00 MCV 82.9 fL (80.0-100.0) 04/09/21 05:00 MCH 27.6 pg (27.0-34.0) 04/09/21 05:00 MCHC 33.3 g/dL (33.0-35.0) 04/09/21 05:00 RDW 14.7 % (11.6-16.5) 04/09/21 05:00 Plt Count 296 X10^3/uL (150.0-450.0) 04/09/21 05:00 Plt Count Comment Adequate (ADEQUATE) 04/07/21 05:16 MPV 6.9 fL (7.4-11.0) L 04/09/21 05:00 Neut % (Auto) 83.1 % (42.0-75.0) H 04/09/21 05:00 Lymph % (Auto) 7.8 % (21.0-51.0) L 04/09/21 05:00 [place] % (Auto) 7.7 % (0.0-13.0) 04/09/21 05:00 Eos % (Auto) 1.1 % (0.9-2.9) 04/09/21 05:00 Baso % (Auto) 0.3 % (0.2-1.0) 04/09/21 05:00 Neut # (Auto) 12.2 x10^3/uL (2.2-4.8) H 04/09/21 05:00 Lymph # (Auto) 1.1 X10^3/uL (1.3-2.9) L 04/09/21 05:00 [place] # (Auto) 1.1 x10^3/uL (0.3-0.8) H 04/09/21 05:00 Eos # (Auto) 0.2 x10^3/uL (0.0-0.2) 04/09/21 05:00 Baso # (Auto) 0.0 X10^3/uL (0.0-0.1) 04/09/21 05:00 Absolute Nucleated RBC 0.0 /100WBC 04/09/21 05:00 Total Counted 100 04/07/21 05:16 Neutrophils % (Manual) 86 % (39-76) H 04/07/21 05:16 Lymphocytes % (Manual) 5 % (13-43) L 04/07/21 05:16 Monocytes % (Manual) 8 % (4-9) 04/07/21 05:16 Eosinophils % (Manual) 1 % (0-6) 04/07/21 05:16 Plt Morphology Comment Normal (NORMAL) 04/07/21 05:16 RBC Morphology Normal (NORMAL) 04/07/21 05:16 Sodium 133 mmol/L (136-145) L 04/09/21 05:15 Corrected Sodium TNP 04/09/21 05:15 Potassium 3.6 mmol/L (3.5-5.1) 04/09/21 05:15 Chloride 103 mmol/L (98-107) 04/09/21 05:15 Carbon Dioxide 19.8 mmol/L (21-32) L 04/09/21 05:15 BUN 14 mg/dL (7-18) 04/09/21 05:15 Creatinine 0.88 mg/dL (0.55-1.02) 04/09/21 05:15 Est GFR (MDRD) Af Amer > 60 (>60) 04/09/21 05:15 Est GFR (MDRD) Non-Af > 60 (>60) 04/09/21 05:15 Glucose 91 mg/dL (65-99) 04/09/21 05:15 POC Glucose (mg/dL) 90 mg/dL (65-99) 04/09/21 05:47 Lactic Acid 1.4 mmol/L (0.4-2.0) 04/05/21 15:55 Calcium 8.3 mg/dL (8.5-10.1) L 04/09/21 05:15 Corrected Calcium 10.2 mg/dL (8.5-10.1) H 04/09/21 05:15 Total Bilirubin 0.30 mg/dL (0.2-1.0) 04/09/21 05:15 AST 15 Units/L (15-37) 04/09/21 05:15 ALT 19 Units/L (12-78) 04/09/21 05:15 Alkaline Phosphatase 57 Units/L (46-116) 04/09/21 05:15 Total Protein 5.7 g/dL (6.4-8.2) L 04/09/21 05:15 Albumin 1.6 g/dL (3.4-5.0) L 04/09/21 05:15 Globulin 4.1 g/dL (2.5-4.5) 04/09/21 05:15 Albumin/Globulin Ratio 0.4 Ratio (1.1-2.1) L 04/09/21 05:15 Specimen Type Catherized urine 04/05/21 17:05 Urine Color Yellow (YELLOW) 04/05/21 17:05 Urine Appearance Slightly hazy (CLEAR) 04/05/21 17:05 Urine pH 5.0 (5.0 - 8.0) 04/05/21 17:05 Ur Specific [place] 1.025 (1.000-1.030) 04/05/21 17:05 Urine Protein 2+ (NEGATIVE) 04/05/21 17:05 Urine Glucose (UA) Negative (NEGATIVE) 04/05/21 17:05 Urine Ketones Negative (NEGATIVE) 04/05/21 17:05 Urine Occult Blood 2+ (NEGATIVE) 04/05/21 17:05 Urine Nitrite Negative (NEGATIVE) 04/05/21 17:05 Urine Bilirubin 1+ (NEGATIVE) 04/05/21 17:05 Urine Urobilinogen Normal (NORMAL) 04/05/21 17:05 Ur Leukocyte Esterase 1+ (NEGATIVE) 04/05/21 17:05 Urine RBC 3-5 /HPF (0-3) A 04/05/21 17:05 Urine WBC 3-5 /HPF (0-5) 04/05/21 17:05 Ur Squamous Epith Cells Few /HPF (NEGATIVE) 04/05/21 17:05 Urine Bacteria Trace /HPF (NEGATIVE) 04/05/21 17:05 Urine Yeast Few /HPF (NEGATIVE) 04/05/21 17:05 Ur Culture Indicated? No/not indicated 04/05/21 17:05 SARS-CoV-2 (PCR) Negative (NEGATIVE) 04/05/21 13:10 Influenza Type A (PCR) Negative (NEGATIVE) 04/05/21 13:10 Influenza Type B (PCR) Negative (NEGATIVE) 04/05/21 13:10 RSV (PCR) Negative (NEGATIVE) 04/05/21 13:10 - Plan (1) Bronchopneumonia Status: Acute Plan: D5W AT 75 ML/HR, VANCOMYCIN, FORTAZ 1G IV BID, ALBUTEROL NEBS Q6H, FENTANYL 25MCG/HR PATCH, ATROPINE DROPS PRN SECRETIONS. RESUME HOME MEDS (2) UTI (urinary tract infection) Status: Acute Qualifiers: Urinary tract infection type: acute cystitis Hematuria presence: without hematuria Qualified Code(s): N30.00 - Acute cystitis without hematuria (3) Sepsis Status: Acute Qualifiers: Sepsis type: sepsis due to unspecified organism Sepsis acute organ dysfunction status: unspecified Qualified Code(s): A41.9 - Sepsis, unspecified organism
[2021-04-09] MEDS: SYNTHROID 25 mcg TAB PO SCH (11:13)
[2021-04-09] MEDS: ALDACTONE TAB 25 MG PO SCH (11:13)
[2021-04-09] MEDS: COLACE CAP 100 MG PO SCH ×2 (11:13→21:29)
[2021-04-09] MEDS: TOPAMAX PO SCH ×2 (11:14→21:29)
[2021-04-09] MEDS: PROTONIX TAB 40 MG PO SCH ×2 (11:15→21:30)
[2021-04-09] MEDS: COZAAR PO SCH (11:16)
[2021-04-09] MEDS: ELIQUIS PO SCH ×2 (11:16→21:32)
[2021-04-09] MEDS: MEGACE PO SCH ×2 (11:17→21:32)
--- NOTE | 2021-04-09 11:45 | PCM.PROG ---
Progress Note - Progress Note for Day of Date of Exam: 04/09/21 - Subjective Subjective: WAS ADMITTED FOR TREATMENT OF BRONCHOPNEUMONIA, UTI, AND SEPSIS. TODAY, SHE IS LYING IN BED WITH EYES CLOSED ON MORNING ROUNDS. SHE AWAKENS TO VERBAL STIMULI. SHE RESPONDS VERBALLY AND IS ABLE TO FOLLOW COMMANDS. STAFF REPORTS THAT SHE CONTINUES WITH GENERALIZED WEAKNESS. SHE HAS HAD DECREASED APPETITE WELL. ON EXAMINATION, HEART IS REGULAR IN RATE AND RHYTHM. BILATERAL LUNGS NOTED WITH RHONCHI THROUGHOUT. ABDOMEN IS ROUND, SOFT, AND NON- TENDER WITH NORMAL BOWEL SOUNDS NOTED IN ALL QUADRANTS. HER VITALS THIS MORNING ARE: 98.3-92-18-98%-143/74. LABS WERE OBTAINED. ABNORMAL LAB VALUES INCLUDE THE FOLLOWING: WBC 14.7, RBC 3.10, HGB 8.6, HCT 25.7, SODIUM 133, CARBON DIXOIDE 1 9.8, CALCIUM 8.3, TOTAL PROTEIN 5.7, ALBUMIN 1.6. BLOOD AND URINE CULTURES ARE PENDING. PRELIMINARY BLOOD CULTURE ARE POSITIVE FOR GROWTH OF GRAM POSITIVE COCCI. SHE IS CURRENTLY RECEIVING D5W AT 75 ML/HR, VANCOMYCIN 1G IV Q12H, FORTAZ 1G IV BID, ALBUTEROL NEBS Q6H, FENTANYL 25MCG/HR PATCH, ATROPINE DROPS PRN SECRETIONS. MOST OF HER HOME MEDICATINS WERE RESUMED. WE WILL ADD ALBUMIN 25% IV DAILY. OTHERWISE, WE PLAN TO FOLLOW UP WITH AM LABS AND CONTINUE TO MONITOR. TIME SPENT ON CLINICAL ASSESSMENT, REVIEWING LABS AND IMAGING, DECISION MAKING, AND DOCUMENTATION GREATER THAN 45 MINUTES. - Past Medical Family Social History Past Med/Fam/Surg Hx: No changes since H&P Allergies: Allergies morphine Allergy (Verified 08/06/20 13:53) rofecoxib [From Vioxx] Allergy (Verified 08/06/20 13:53) - Review of Systems ROS: No change since H&P - Vital Signs and I&O's Vital Signs: Temperature 98.3 F Pulse Rate [Right Brachial] 92 Pulse Rate 111 Respiratory Rate 20 Blood Pressure [Right Arm] 143/74 Blood Pressure 154/67 O2 Sat by Pulse Oximetry 98 Intake and Output: Intake & Output 04/06/21 04/07/21 04/08/21 04/09/21 11:59 11:59 11:59 11:59 Intake Total 5590 / 5590 2146 / 2146 2533 / 2533 3991 / 3991 Balance 5590 / 5590 2145 2533 / 2533 3991 / 3991 - Physical Exam Oriented: Person Eyes: Normal Ear: Normal Nose: Normal Throat: Normal Respiratory: Generalized, Diminished, Rhonchi Cardiovascular: Normal : Normal Auscultation: Bowel Sounds: Normal Palpation: Normal Tenderness: Normal Skin: Normal Musculoskeletal: Normal Psychiatric: Normal Mood Description: Calm Affect: Normal Speech Pattern: Clear - Laboratory and Diagnostics Result Diagrams: 04/09/21 05:00 04/09/21 05:15 Labs: 04/08/21 13:25 Stool Stool Culture - Preliminary 04/08/21 13:25 Stool - Final 04/05/21 15:55 Blood Blood Culture - Final 04/05/21 16:05 Blood Blood Culture - Preliminary 04/05/21 17:05 Urine,Clean Catch Urine Culture - Final Laboratory WBC 14.7 X10^3/uL (3.6-10.0) H 04/09/21 05:00 RBC 3.10 X10^6/uL (3.5-5.4) L 04/09/21 05:00 Hgb 8.6 g/dL (12.0-16.0) L 04/09/21 05:00 Hct 25.7 % (36.0-47.0) L 04/09/21 05:00 MCV 82.9 fL (80.0-100.0) 04/09/21 05:00 MCH 27.6 pg (27.0-34.0) 04/09/21 05:00 MCHC 33.3 g/dL (33.0-35.0) 04/09/21 05:00 RDW 14.7 % (11.6-16.5) 04/09/21 05:00 Plt Count 296 X10^3/uL (150.0-450.0) 04/09/21 05:00 Plt Count Comment Adequate (ADEQUATE) 04/07/21 05:16 MPV 6.9 fL (7.4-11.0) L 04/09/21 05:00 Neut % (Auto) 83.1 % (42.0-75.0) H 04/09/21 05:00 Lymph % (Auto) 7.8 % (21.0-51.0) L 04/09/21 05:00 [place] % (Auto) 7.7 % (0.0-13.0) 04/09/21 05:00 Eos % (Auto) 1.1 % (0.9-2.9) 04/09/21 05:00 Baso % (Auto) 0.3 % (0.2-1.0) 04/09/21 05:00 Neut # (Auto) 12.2 x10^3/uL (2.2-4.8) H 04/09/21 05:00 Lymph # (Auto) 1.1 X10^3/uL (1.3-2.9) L 04/09/21 05:00 [place] # (Auto) 1.1 x10^3/uL (0.3-0.8) H 04/09/21 05:00 Eos # (Auto) 0.2 x10^3/uL (0.0-0.2) 04/09/21 05:00 Baso # (Auto) 0.0 X10^3/uL (0.0-0.1) 04/09/21 05:00 Absolute Nucleated RBC 0.0 /100WBC 04/09/21 05:00 Total Counted 100 04/07/21 05:16 Neutrophils % (Manual) 86 % (39-76) H 04/07/21 05:16 Lymphocytes % (Manual) 5 % (13-43) L 04/07/21 05:16 Monocytes % (Manual) 8 % (4-9) 04/07/21 05:16 Eosinophils % (Manual) 1 % (0-6) 04/07/21 05:16 Plt Morphology Comment Normal (NORMAL) 04/07/21 05:16 RBC Morphology Normal (NORMAL) 04/07/21 05:16 Sodium 133 mmol/L (136-145) L 04/09/21 05:15 Corrected Sodium TNP 04/09/21 05:15 Potassium 3.6 mmol/L (3.5-5.1) 04/09/21 05:15 Chloride 103 mmol/L (98-107) 04/09/21 05:15 Carbon Dioxide 19.8 mmol/L (21-32) L 04/09/21 05:15 BUN 14 mg/dL (7-18) 04/09/21 05:15 Creatinine 0.88 mg/dL (0.55-1.02) 04/09/21 05:15 Est GFR (MDRD) Af Amer > 60 (>60) 04/09/21 05:15 Est GFR (MDRD) Non-Af > 60 (>60) 04/09/21 05:15 Glucose 91 mg/dL (65-99) 04/09/21 05:15 POC Glucose (mg/dL) 90 mg/dL (65-99) 04/09/21 05:47 Lactic Acid 1.4 mmol/L (0.4-2.0) 04/05/21 15:55 Calcium 8.3 mg/dL (8.5-10.1) L 04/09/21 05:15 Corrected Calcium 10.2 mg/dL (8.5-10.1) H 04/09/21 05:15 Total Bilirubin 0.30 mg/dL (0.2-1.0) 04/09/21 05:15 AST 15 Units/L (15-37) 04/09/21 05:15 ALT 19 Units/L (12-78) 04/09/21 05:15 Alkaline Phosphatase 57 Units/L (46-116) 04/09/21 05:15 Total Protein 5.7 g/dL (6.4-8.2) L 04/09/21 05:15 Albumin 1.6 g/dL (3.4-5.0) L 04/09/21 05:15 Globulin 4.1 g/dL (2.5-4.5) 04/09/21 05:15 Albumin/Globulin Ratio 0.4 Ratio (1.1-2.1) L 04/09/21 05:15 Specimen Type Catherized urine 04/05/21 17:05 Urine Color Yellow (YELLOW) 04/05/21 17:05 Urine Appearance Slightly hazy (CLEAR) 04/05/21 17:05 Urine pH 5.0 (5.0 - 8.0) 04/05/21 17:05 Ur Specific [place] 1.025 (1.000-1.030) 04/05/21 17:05 Urine Protein 2+ (NEGATIVE) 04/05/21 17:05 Urine Glucose (UA) Negative (NEGATIVE) 04/05/21 17:05 Urine Ketones Negative (NEGATIVE) 04/05/21 17:05 Urine Occult Blood 2+ (NEGATIVE) 04/05/21 17:05 Urine Nitrite Negative (NEGATIVE) 04/05/21 17:05 Urine Bilirubin 1+ (NEGATIVE) 04/05/21 17:05 Urine Urobilinogen Normal (NORMAL) 04/05/21 17:05 Ur Leukocyte Esterase 1+ (NEGATIVE) 04/05/21 17:05 Urine RBC 3-5 /HPF (0-3) A 04/05/21 17:05 Urine WBC 3-5 /HPF (0-5) 04/05/21 17:05 Ur Squamous Epith Cells Few /HPF (NEGATIVE) 04/05/21 17:05 Urine Bacteria Trace /HPF (NEGATIVE) 04/05/21 17:05 Urine Yeast Few /HPF (NEGATIVE) 04/05/21 17:05 Ur Culture Indicated? No/not indicated 04/05/21 17:05 SARS-CoV-2 (PCR) Negative (NEGATIVE) 04/05/21 13:10 Influenza Type A (PCR) Negative (NEGATIVE) 04/05/21 13:10 Influenza Type B (PCR) Negative (NEGATIVE) 04/05/21 13:10 RSV (PCR) Negative (NEGATIVE) 04/05/21 13:10 - Plan (1) Bronchopneumonia Status: Acute Plan: D5W AT 75 ML/HR, VANCOMYCIN, FORTAZ 1G IV BID, ALBUTEROL NEBS Q6H, FENTANYL 25MCG/HR PATCH, ATROPINE DROPS PRN SECRETIONS. RESUME HOME MEDS (2) UTI (urinary tract infection) Status: Acute Qualifiers: Urinary tract infection type: acute cystitis Hematuria presence: without hematuria Qualified Code(s): N30.00 - Acute cystitis without hematuria (3) Sepsis Status: Acute Qualifiers: Sepsis type: sepsis due to unspecified organism Sepsis acute organ dysfunction status: unspecified Qualified Code(s): A41.9 - Sepsis, unspecified organism
[2021-04-09] MEDS ORDERED: NORCO 5/325 MG TAB PO PRN (13:00)
[2021-04-09] MEDS: ALBUMIN HUMAN 25%- 100 ML 100 ML IV SCH (13:10)
[2021-04-09] MEDS ORDERED: K-RIDER 10 MEQ/NS 100 ML 10 MEQ/100 ML BAG IV PRN (17:25)
[2021-04-09] MEDS ORDERED: POTASSIUM CHL 60 MEQ/NS 0.45% 500 ML IV PRN (17:25)
[2021-04-09] MEDS ORDERED: POTASSIUM CHLORIDE LIQ 20 MEQ UDC PO PRN (17:25)
[2021-04-09] MEDS ORDERED: POTASSIUM CHL 40 MEQ/NS 0.45% 500 ML IV PRN (17:25)
[2021-04-09] MEDS ORDERED: MICRO K EXTEN CAP 10 MEQ PO PRN (17:25)
[2021-04-09] MEDS ORDERED: KLOR-CON PO PRN (17:25)
[2021-04-09] MEDS ORDERED: K-DUR TAB 20 MEQ PO PRN (17:25)
[2021-04-09] MEDS ORDERED: MAGNESIUM SULFATE 50% INJ VIAL ONE (18:13)
[2021-04-09] MEDS ORDERED: MICRO K EXTEN CAP 10 MEQ PO ONE (18:15)
[2021-04-09] MEDS ORDERED: MAGNESIUM SULFATE 1 GRAM/100 mL PREMIX 1 G/100 ML BAG IV ONE (18:18)
[2021-04-09] MEDS: MAGNESIUM SULFATE 1 GRAM/100 mL PREMIX 1 G/100 ML BAG IV PRN ×2 (18:32→20:02)
[2021-04-09] MEDS ORDERED: PHARMACY COMMENT IV SCH (20:30)
[2021-04-09 21:06] LABS: CREATININE 1.16 mg/dL (0.55-1.02); VANCOMYCIN,TROUGH 19.3 ug/mL (15-20)
[2021-04-09] MEDS: ARICEPT TAB 5 MG PO SCH (21:28)
[2021-04-09] MEDS: LIPITOR TAB 10 MG PO SCH (21:32)
[2021-04-10] MEDS: PROVENTIL NEB TX 0.083% 2.5MG/ 3ML NEB SCH ×4 (00:05→17:40)
[2021-04-10] MEDS: D5W 1,000 ML IV 1,000 ML IV SCH ×2 (03:37→12:27)
[2021-04-10 04:45] LABS: BASOPHILS % (AUTO) 0.3 % (0.2-1.0); EOSINOPHILS # (AUTO) 0.2 x10^3/uL (0.0-0.2); EOSINOPHILS % (AUTO) 1.4 % (0.9-2.9); HEMATOCRIT 24.6 % (36.0-47.0); HEMOGLOBIN 8.2 g/dL (12.0-16.0); LYMPHOCYTES # (AUTO) 1.3 X10^3/uL (1.3-2.9); LYMPHOCYTES % (AUTO) 9.6 % (21.0-51.0); MEAN CORPUSCULAR HEMOGLOBIN 27.7 pg (27.0-34.0); MEAN CORPUSCULAR HGB CONC 33.3 g/dL (33.0-35.0); MEAN CORPUSCULAR VOLUME 83.1 fL (80.0-100.0); MEAN PLATELET VOLUME 6.7 fL (7.4-11.0); MONOCYTES % (AUTO) 7.5 % (0.0-13.0); NEUTROPHILS # (AUTO) 10.7 x10^3/uL (2.2-4.8); NEUTROPHILS % (AUTO) 81.2 % (42.0-75.0); PLATELET COUNT 269 X10^3/uL (150.0-450.0); RED BLOOD COUNT 2.96 X10^6/uL (3.5-5.4); RED CELL DISTRIBUTION WIDTH 14.8 % (11.6-16.5); WHITE BLOOD COUNT 13.2 X10^3/uL (3.6-10.0)
[2021-04-10 05:00] LABS: ALANINE AMINOTRANSFERASE 24 Units/L (12-78); ALBUMIN 2.1 g/dL (3.4-5.0); ALKALINE PHOSPHATASE 49 Units/L (46-116); ASPARTATE AMINO TRANSFERASE 15 Units/L (15-37); BLOOD UREA NITROGEN 13 mg/dL (7-18); CALCIUM 8.3 mg/dL (8.5-10.1); CARBON DIOXIDE 18.5 mmol/L (21-32); CHLORIDE 106 mmol/L (98-107); COR CA(FOR HYPOALB) 9.8 mg/dL (8.5-10.1); CREATININE 0.98 mg/dL (0.55-1.02); MAGNESIUM 2.1 mg/dL (1.7-2.9); SODIUM 138 mmol/L (136-145); TOTAL PROTEIN 5.9 g/dL (6.4-8.2); eGFR NON BLACK RACES 59 (>60)
[2021-04-10] MEDS: FORTAZ or TAZICEF VIAL INJ 1 G in NS 100 ML IV + SPIKE MINIBAG* 100 ML IV SCH ×3 (05:15→21:43)
[2021-04-10] MEDS: ALBUMIN HUMAN 25%- 100 ML 100 ML IV SCH (08:43)
[2021-04-10] MEDS: ALDACTONE TAB 25 MG PO SCH (08:51)
[2021-04-10] MEDS: BUTT CREAM (COMPOUND) TOP SCH ×4 (08:52→21:03)
[2021-04-10] MEDS: ELIQUIS PO SCH ×2 (08:52→21:41)
[2021-04-10] MEDS: XANAX PO SCH ×2 (08:52→21:44)
[2021-04-10] MEDS: SYNTHROID 25 mcg TAB PO SCH (08:53)
[2021-04-10] MEDS: PROTONIX TAB 40 MG PO SCH ×2 (08:53→21:43)
[2021-04-10] MEDS: MEGACE PO SCH ×2 (08:53→21:41)
[2021-04-10] MEDS: COZAAR PO SCH (08:54)
[2021-04-10] MEDS: ISOSORBIDE MONONITRATE ER 24-HR PO SCH (08:54)
[2021-04-10] MEDS: TOPAMAX PO SCH ×2 (08:54→21:44)
[2021-04-10] MEDS: COLACE CAP 100 MG PO SCH ×2 (08:54→21:42)
[2021-04-10] MEDS: CARDIZEM CD 240 MG 24-HR PO SCH (08:55)
[2021-04-10] MEDS: CELEXA PO SCH (08:55)
[2021-04-10] MEDS: NORCO 7.5/325 MG TAB PO SCH ×4 (09:46→21:45)
[2021-04-10] MEDS: CHECK PATCH XX SCH ×2 (09:46→21:55)
[2021-04-10] MEDS: VANCOMYCIN IV *PREMIX 1 G/200 ML BAG 1 G/200 ML PIGGYBACK IV SCH ×2 (10:00→21:04)
[2021-04-10] MEDS: ARICEPT TAB 5 MG PO SCH (21:40)
[2021-04-10] MEDS: LIPITOR TAB 10 MG PO SCH (21:43)
[2021-04-11] MEDS: PROVENTIL NEB TX 0.083% 2.5MG/ 3ML NEB SCH ×4 (00:10→18:00)
[2021-04-11] MEDS: D5W 1,000 ML IV 1,000 ML IV SCH ×3 (02:56→14:21)
[2021-04-11 05:11] LABS: BASOPHILS # (AUTO) 0.1 X10^3/uL (0.0-0.1); BASOPHILS % (AUTO) 0.5 % (0.2-1.0); EOSINOPHILS # (AUTO) 0.2 x10^3/uL (0.0-0.2); EOSINOPHILS % (AUTO) 1.8 % (0.9-2.9); HEMATOCRIT 25.1 % (36.0-47.0); HEMOGLOBIN 8.3 g/dL (12.0-16.0); LYMPHOCYTES # (AUTO) 1.6 X10^3/uL (1.3-2.9); LYMPHOCYTES % (AUTO) 12.7 % (21.0-51.0); MEAN CORPUSCULAR HEMOGLOBIN 27.8 pg (27.0-34.0); MEAN CORPUSCULAR HGB CONC 33.1 g/dL (33.0-35.0); MONOCYTES # (AUTO) 1.1 x10^3/uL (0.3-0.8); MONOCYTES % (AUTO) 8.8 % (0.0-13.0); NEUTROPHILS # (AUTO) 9.4 x10^3/uL (2.2-4.8); NEUTROPHILS % (AUTO) 76.2 % (42.0-75.0); PLATELET COUNT 297 X10^3/uL (150.0-450.0); RED BLOOD COUNT 2.99 X10^6/uL (3.5-5.4); WHITE BLOOD COUNT 12.4 X10^3/uL (3.6-10.0)
[2021-04-11] MEDS: FORTAZ or TAZICEF VIAL INJ 1 G in NS 100 ML IV + SPIKE MINIBAG* 100 ML IV SCH ×3 (05:33→22:09)
[2021-04-11 05:38] LABS: ALANINE AMINOTRANSFERASE 27 Units/L (12-78); ALBUMIN 2.7 g/dL (3.4-5.0); ALKALINE PHOSPHATASE 49 Units/L (46-116); ASPARTATE AMINO TRANSFERASE 17 Units/L (15-37); BLOOD UREA NITROGEN 14 mg/dL (7-18); CALCIUM 8.6 mg/dL (8.5-10.1); CARBON DIOXIDE 16.5 mmol/L (21-32); CHLORIDE 106 mmol/L (98-107); COR CA(FOR HYPOALB) 9.6 mg/dL (8.5-10.1); CREATININE 1.01 mg/dL (0.55-1.02); SODIUM 138 mmol/L (136-145); TOTAL PROTEIN 6.3 g/dL (6.4-8.2); eGFR NON BLACK RACES 57 (>60)
[2021-04-11] MEDS: ALBUMIN HUMAN 25%- 100 ML 100 ML IV SCH (09:00)
[2021-04-11] MEDS: ELIQUIS PO SCH ×2 (09:01→21:13)
[2021-04-11] MEDS: CELEXA PO SCH (09:01)
[2021-04-11] MEDS: CHECK PATCH XX SCH ×2 (09:01→21:08)
[2021-04-11] MEDS: COZAAR PO SCH (09:01)
[2021-04-11] MEDS: CARDIZEM CD 240 MG 24-HR PO SCH (09:01)
[2021-04-11] MEDS: COLACE CAP 100 MG PO SCH ×2 (09:01→21:09)
[2021-04-11] MEDS: ALDACTONE TAB 25 MG PO SCH (09:01)
[2021-04-11] MEDS: BUTT CREAM (COMPOUND) TOP SCH ×4 (09:01→21:08)
[2021-04-11] MEDS: ISOSORBIDE MONONITRATE ER 24-HR PO SCH (09:02)
[2021-04-11] MEDS: NORCO 7.5/325 MG TAB PO SCH ×4 (09:02→21:10)
[2021-04-11] MEDS: MEGACE PO SCH ×2 (09:02→21:15)
[2021-04-11] MEDS: VANCOMYCIN IV *PREMIX 1 G/200 ML BAG 1 G/200 ML PIGGYBACK IV SCH ×2 (09:03→20:50)
[2021-04-11] MEDS: SYNTHROID 25 mcg TAB PO SCH (09:03)
[2021-04-11] MEDS: TOPAMAX PO SCH ×2 (09:03→21:10)
[2021-04-11] MEDS: PROTONIX TAB 40 MG PO SCH ×2 (09:03→21:10)
[2021-04-11] MEDS: XANAX PO SCH ×2 (09:04→21:09)
--- NOTE | 2021-04-11 09:21 | PCM.PROG ---
Progress Note - Progress Note for Day of Date of Exam: 04/10/21 - Subjective Subjective: WAS ADMITTED FOR TREATMENT OF BRONCHOPNEUMONIA, UTI, AND SEPSIS. TODAY, SHE IS LYING IN BED WITH EYES CLOSED ON MORNING ROUNDS. SHE AWAKENS TO VERBAL STIMULI. SHE RESPONDS VERBALLY AND IS ABLE TO FOLLOW COMMANDS. STAFF REPORTS THAT SHE CONTINUES WITH GENERALIZED WEAKNESS. ON EXAMINATION, HEART IS REGULAR IN RATE AND RHYTHM. BILATERAL LUNGS NOTED WITH RHONCHI THROUGHOUT. ABDOMEN IS ROUND, SOFT, AND NON-TENDER WITH NORMAL BOWEL SOUNDS NOTED IN ALL QUADRANTS. HER VITALS THIS MORNING ARE: 97.6-93-20-98%-139/73. LABS WERE OBTAINED. ABNORMAL LAB VALUES INCLUDE THE FOLLOWING: WBC 13.2, RBC 2.96, HGB 8.2, HCT 24.6, CARBON DIOXIDE 18.5, GLUCOSE 103, CALCIUM 8.3, TOTAL PROTEIN 5.9, ALBUMIN 2.1. BLOOD AND URINE CULTURES ARE PENDING. PRELIMINARY BLOOD CULTURE ARE POSITIVE FOR GROWTH OF GRAM POSITIVE COCCI. SHE IS CURRENTLY RECEIVING D5W AT 75 ML/HR, ALBUMIN 25% IV DAILY, VANCOMYCIN 1G IV Q12H, FORTAZ 1G IV BID, ALBUTEROL NEBS Q6H, FENTANYL 25MCG/HR PATCH, ATROPINE DROPS PRN SECRETIONS. WE WILL CONTINUE WITH CURRENT PLAN OF CARE TODAY. OTHERWISE, WE PLAN TO FOLLOW UP WITH AM LABS AND CONTINUE TO MONITOR. TIME SPENT ON CLINICAL ASSESSMENT, REVIEWING LABS AND IMAGING, DECISION MAKING, AND DOCUMENTATION GREATER THAN 45 MINUTES. - Past Medical Family Social History Past Med/Fam/Surg Hx: No changes since H&P Allergies: Allergies morphine Allergy (Verified 08/06/20 13:53) rofecoxib [From Vioxx] Allergy (Verified 08/06/20 13:53) - Review of Systems ROS: No change since H&P - Vital Signs and I&O's Vital Signs: Temperature 97.6 F Pulse Rate [Right Brachial] 108 Pulse Rate 80 Respiratory Rate 19 Blood Pressure [Right Arm] 145/75 Blood Pressure 154/67 O2 Sat by Pulse Oximetry 100 Intake and Output: Intake & Output 04/08/21 04/09/21 04/10/21 04/11/21 11:59 11:59 11:59 11:59 Intake Total 2533 / 2533 3991 / 3991 2463 / 2463 2254 / 2254 Output Total 200 / 200 Balance 2533 / 2533 3991 / 3991 2463 / 2463 2053 - Physical Exam Oriented: Person Eyes: Normal Ear: Normal Nose: Normal Throat: Normal Respiratory: Generalized, Diminished, Rhonchi Cardiovascular: Normal : Normal Auscultation: Bowel Sounds: Normal Palpation: Normal Tenderness: Normal Skin: Normal Musculoskeletal: Normal Psychiatric: Normal Mood Description: Calm Affect: Normal Speech Pattern: Appropriate - Laboratory and Diagnostics Result Diagrams: 04/11/21 04:05 04/11/21 04:05 Labs: 04/08/21 13:25 Stool Stool Culture - Final 04/08/21 13:25 Stool - Final 04/08/21 08:55 Blood Blood Culture - Preliminary 04/08/21 08:49 Blood Blood Culture - Preliminary 04/05/21 15:55 Blood Blood Culture - Final 04/05/21 16:05 Blood Blood Culture - Preliminary 04/05/21 17:05 Urine,Clean Catch Urine Culture - Final Laboratory WBC 12.4 X10^3/uL (3.6-10.0) H 04/11/21 04:05 RBC 2.99 X10^6/uL (3.5-5.4) L 04/11/21 04:05 Hgb 8.3 g/dL (12.0-16.0) L 04/11/21 04:05 Hct 25.1 % (36.0-47.0) L 04/11/21 04:05 MCV 84.0 fL (80.0-100.0) 04/11/21 04:05 MCH 27.8 pg (27.0-34.0) 04/11/21 04:05 MCHC 33.1 g/dL (33.0-35.0) 04/11/21 04:05 RDW 15.0 % (11.6-16.5) 04/11/21 04:05 Plt Count 297 X10^3/uL (150.0-450.0) 04/11/21 04:05 Plt Count Comment Adequate (ADEQUATE) 04/07/21 05:16 MPV 7.0 fL (7.4-11.0) L 04/11/21 04:05 Neut % (Auto) 76.2 % (42.0-75.0) H 04/11/21 04:05 Lymph % (Auto) 12.7 % (21.0-51.0) L 04/11/21 04:05 [place] % (Auto) 8.8 % (0.0-13.0) 04/11/21 04:05 Eos % (Auto) 1.8 % (0.9-2.9) 04/11/21 04:05 Baso % (Auto) 0.5 % (0.2-1.0) 04/11/21 04:05 Neut # (Auto) 9.4 x10^3/uL (2.2-4.8) H 04/11/21 04:05 Lymph # (Auto) 1.6 X10^3/uL (1.3-2.9) 04/11/21 04:05 [place] # (Auto) 1.1 x10^3/uL (0.3-0.8) H 04/11/21 04:05 Eos # (Auto) 0.2 x10^3/uL (0.0-0.2) 04/11/21 04:05 Baso # (Auto) 0.1 X10^3/uL (0.0-0.1) 04/11/21 04:05 Absolute Nucleated RBC 0.0 /100WBC 04/11/21 04:05 Total Counted 100 04/07/21 05:16 Neutrophils % (Manual) 86 % (39-76) H 04/07/21 05:16 Lymphocytes % (Manual) 5 % (13-43) L 04/07/21 05:16 Monocytes % (Manual) 8 % (4-9) 04/07/21 05:16 Eosinophils % (Manual) 1 % (0-6) 04/07/21 05:16 Plt Morphology Comment Normal (NORMAL) 04/07/21 05:16 RBC Morphology Normal (NORMAL) 04/07/21 05:16 Sodium 138 mmol/L (136-145) 04/11/21 04:05 Corrected Sodium TNP 04/11/21 04:05 Potassium 4.0 mmol/L (3.5-5.1) 04/11/21 04:05 Chloride 106 mmol/L (98-107) 04/11/21 04:05 Carbon Dioxide 16.5 mmol/L (21-32) L 04/11/21 04:05 BUN 14 mg/dL (7-18) 04/11/21 04:05 Creatinine 1.01 mg/dL (0.55-1.02) 04/11/21 04:05 Est GFR (MDRD) Af Amer > 60 (>60) 04/11/21 04:05 Est GFR (MDRD) Non-Af 57 (>60) L 04/11/21 04:05 Glucose 93 mg/dL (65-99) 04/11/21 04:05 POC Glucose (mg/dL) 109 mg/dL (65-99) H 04/11/21 05:08 Lactic Acid 1.4 mmol/L (0.4-2.0) 04/05/21 15:55 Calcium 8.6 mg/dL (8.5-10.1) 04/11/21 04:05 Corrected Calcium 9.6 mg/dL (8.5-10.1) 04/11/21 04:05 Magnesium 2.1 mg/dL (1.7-2.9) 04/10/21 04:15 Total Bilirubin 0.30 mg/dL (0.2-1.0) 04/11/21 04:05 AST 17 Units/L (15-37) 04/11/21 04:05 ALT 27 Units/L (12-78) 04/11/21 04:05 Alkaline Phosphatase 49 Units/L (46-116) 04/11/21 04:05 Total Protein 6.3 g/dL (6.4-8.2) L 04/11/21 04:05 Albumin 2.7 g/dL (3.4-5.0) L 04/11/21 04:05 Globulin 3.6 g/dL (2.5-4.5) 04/11/21 04:05 Albumin/Globulin Ratio 0.8 Ratio (1.1-2.1) L 04/11/21 04:05 Specimen Type Catherized urine 04/05/21 17:05 Urine Color Yellow (YELLOW) 04/05/21 17:05 Urine Appearance Slightly hazy (CLEAR) 04/05/21 17:05 Urine pH 5.0 (5.0 - 8.0) 04/05/21 17:05 Ur Specific [place] 1.025 (1.000-1.030) 04/05/21 17:05 Urine Protein 2+ (NEGATIVE) 04/05/21 17:05 Urine Glucose (UA) Negative (NEGATIVE) 04/05/21 17:05 Urine Ketones Negative (NEGATIVE) 04/05/21 17:05 Urine Occult Blood 2+ (NEGATIVE) 04/05/21 17:05 Urine Nitrite Negative (NEGATIVE) 04/05/21 17:05 Urine Bilirubin 1+ (NEGATIVE) 04/05/21 17:05 Urine Urobilinogen Normal (NORMAL) 04/05/21 17:05 Ur Leukocyte Esterase 1+ (NEGATIVE) 04/05/21 17:05 Urine RBC 3-5 /HPF (0-3) A 04/05/21 17:05 Urine WBC 3-5 /HPF (0-5) 04/05/21 17:05 Ur Squamous Epith Cells Few /HPF (NEGATIVE) 04/05/21 17:05 Urine Bacteria Trace /HPF (NEGATIVE) 04/05/21 17:05 Urine Yeast Few /HPF (NEGATIVE) 04/05/21 17:05 Ur Culture Indicated? No/not indicated 04/05/21 17:05 Vancomycin Trough 19.3 ug/mL (15-20) 04/09/21 20:32 SARS-CoV-2 (PCR) Negative (NEGATIVE) 04/05/21 13:10 Influenza Type A (PCR) Negative (NEGATIVE) 04/05/21 13:10 Influenza Type B (PCR) Negative (NEGATIVE) 04/05/21 13:10 RSV (PCR) Negative (NEGATIVE) 04/05/21 13:10 - Plan (1) Bronchopneumonia Status: Acute Plan: D5W AT 75 ML/HR, ALBUMIN 25% IV DAILY, VANCOMYCIN, FORTAZ 1G IV BID, ALBUTEROL NEBS Q6H, FENTANYL 25MCG/HR PATCH, ATROPINE DROPS PRN SECRETIONS. RESUME HOME MEDS (2) UTI (urinary tract infection) Status: Acute Qualifiers: Urinary tract infection type: acute cystitis Hematuria presence: without hematuria Qualified Code(s): N30.00 - Acute cystitis without hematuria (3) Sepsis Status: Acute Qualifiers: Sepsis type: sepsis due to unspecified organism Sepsis acute organ dysfunction status: unspecified Qualified Code(s): A41.9 - Sepsis, unspecified organism
--- NOTE | 2021-04-11 09:29 | PCM.PROG ---
Progress Note - Progress Note for Day of Date of Exam: 04/11/21 - Subjective Subjective: WAS ADMITTED FOR TREATMENT OF BRONCHOPNEUMONIA, UTI, AND SEPSIS. TODAY, SHE IS ALERT, SITTING UP IN BED ON MORNING ROUNDS. SHE RESPONDS VERBALLY AND IS ABLE TO FOLLOW COMMANDS. STAFF AND FAMILY REPORTS THAT SHE CONTINUES WITH GENERALIZED WEAKNESS. PATIENT DENIES COMPLAINTS THIS MORNING. ON EXAMINATION, HEART IS REGULAR IN RATE AND RHYTHM. BILATERAL LUNGS NOTED WITH DIMINISHED LUNG SOUNDS THROUGHOUT. ABDOMEN IS ROUND, SOFT, AND NON-TENDER WITH NORMAL BOWEL SOUNDS NOTED IN ALL QUADRANTS. HER VITALS THIS MORNING ARE: 96.4-061-50-100%-145/75. LABS WERE OBTAINED. ABNORMAL LAB VALUES INCLUDE THE FOLLOWING: WBC 12.4, RBC 2.99, HGB 8.3, HCT 25.1, CARBON DIOXIDE 16.5, TOTAL PROTEIN 6.3, ALBUMIN 2.7. SHE IS CURRENTLY RECEIVING D5W AT 75 ML/HR, ALBUMIN 25% IV DAILY, VANCOMYCIN 1G IV Q12H, FORTAZ 1G IV BID, ALBUTEROL NEBS Q6H, FENTANYL 25MCG/HR PATCH, ATROPINE DROPS PRN SECRETIONS. MOST OF HER HOME MEDICATIONS HAVE BEEN RESUMED. WE WILL CONTINUE WITH CURRENT PLAN OF CARE TODAY. OTHERWISE, WE PLAN TO FOLLOW UP WITH AM LABS AND CONTINUE TO MONITOR. TIME SPENT ON CLINICAL ASSESSMENT, REVIEWING LABS AND IMAGING, DECISION MAKING, AND DOCUMENTATION GREATER THAN 45 MINUTES. - Past Medical Family Social History Past Med/Fam/Surg Hx: No changes since H&P Allergies: Allergies morphine Allergy (Verified 08/06/20 13:53) rofecoxib [From Vioxx] Allergy (Verified 08/06/20 13:53) - Review of Systems ROS: No change since H&P - Vital Signs and I&O's Vital Signs: Temperature 97.6 F Pulse Rate [Right Brachial] 108 Pulse Rate 80 Respiratory Rate 19 Blood Pressure [Right Arm] 145/75 Blood Pressure 154/67 O2 Sat by Pulse Oximetry 100 Intake and Output: Intake & Output 04/08/21 04/09/21 04/10/21 04/11/21 11:59 11:59 11:59 11:59 Intake Total 2533 / 2533 3991 / 3991 2463 / 2463 2254 / 2254 Output Total 200 / 200 Balance 2533 / 2533 3991 / 3991 2463 / 2463 2054 / 2054 - Physical Exam Oriented: Person Eyes: Normal Ear: Normal Nose: Normal Throat: Normal Respiratory: Generalized, Diminished Cardiovascular: Normal : Normal Auscultation: Bowel Sounds: Normal Palpation: Normal Tenderness: Normal Skin: Normal Musculoskeletal: Normal Psychiatric: Normal Mood Description: Calm Affect: Normal Speech Pattern: Appropriate - Laboratory and Diagnostics Result Diagrams: 04/11/21 04:05 04/11/21 04:05 Labs: 04/08/21 13:25 Stool Stool Culture - Final 04/08/21 13:25 Stool - Final 04/08/21 08:55 Blood Blood Culture - Preliminary 04/08/21 08:49 Blood Blood Culture - Preliminary 04/05/21 15:55 Blood Blood Culture - Final 04/05/21 16:05 Blood Blood Culture - Preliminary 04/05/21 17:05 Urine,Clean Catch Urine Culture - Final Laboratory WBC 12.4 X10^3/uL (3.6-10.0) H 04/11/21 04:05 RBC 2.99 X10^6/uL (3.5-5.4) L 04/11/21 04:05 Hgb 8.3 g/dL (12.0-16.0) L 04/11/21 04:05 Hct 25.1 % (36.0-47.0) L 04/11/21 04:05 MCV 84.0 fL (80.0-100.0) 04/11/21 04:05 MCH 27.8 pg (27.0-34.0) 04/11/21 04:05 MCHC 33.1 g/dL (33.0-35.0) 04/11/21 04:05 RDW 15.0 % (11.6-16.5) 04/11/21 04:05 Plt Count 297 X10^3/uL (150.0-450.0) 04/11/21 04:05 Plt Count Comment Adequate (ADEQUATE) 04/07/21 05:16 MPV 7.0 fL (7.4-11.0) L 04/11/21 04:05 Neut % (Auto) 76.2 % (42.0-75.0) H 04/11/21 04:05 Lymph % (Auto) 12.7 % (21.0-51.0) L 04/11/21 04:05 [place] % (Auto) 8.8 % (0.0-13.0) 04/11/21 04:05 Eos % (Auto) 1.8 % (0.9-2.9) 04/11/21 04:05 Baso % (Auto) 0.5 % (0.2-1.0) 04/11/21 04:05 Neut # (Auto) 9.4 x10^3/uL (2.2-4.8) H 04/11/21 04:05 Lymph # (Auto) 1.6 X10^3/uL (1.3-2.9) 04/11/21 04:05 [place] # (Auto) 1.1 x10^3/uL (0.3-0.8) H 04/11/21 04:05 Eos # (Auto) 0.2 x10^3/uL (0.0-0.2) 04/11/21 04:05 Baso # (Auto) 0.1 X10^3/uL (0.0-0.1) 04/11/21 04:05 Absolute Nucleated RBC 0.0 /100WBC 04/11/21 04:05 Total Counted 100 04/07/21 05:16 Neutrophils % (Manual) 86 % (39-76) H 04/07/21 05:16 Lymphocytes % (Manual) 5 % (13-43) L 04/07/21 05:16 Monocytes % (Manual) 8 % (4-9) 04/07/21 05:16 Eosinophils % (Manual) 1 % (0-6) 04/07/21 05:16 Plt Morphology Comment Normal (NORMAL) 04/07/21 05:16 RBC Morphology Normal (NORMAL) 04/07/21 05:16 Sodium 138 mmol/L (136-145) 04/11/21 04:05 Corrected Sodium TNP 04/11/21 04:05 Potassium 4.0 mmol/L (3.5-5.1) 04/11/21 04:05 Chloride 106 mmol/L (98-107) 04/11/21 04:05 Carbon Dioxide 16.5 mmol/L (21-32) L 04/11/21 04:05 BUN 14 mg/dL (7-18) 04/11/21 04:05 Creatinine 1.01 mg/dL (0.55-1.02) 04/11/21 04:05 Est GFR (MDRD) Af Amer > 60 (>60) 04/11/21 04:05 Est GFR (MDRD) Non-Af 57 (>60) L 04/11/21 04:05 Glucose 93 mg/dL (65-99) 04/11/21 04:05 POC Glucose (mg/dL) 109 mg/dL (65-99) H 04/11/21 05:08 Lactic Acid 1.4 mmol/L (0.4-2.0) 04/05/21 15:55 Calcium 8.6 mg/dL (8.5-10.1) 04/11/21 04:05 Corrected Calcium 9.6 mg/dL (8.5-10.1) 04/11/21 04:05 Magnesium 2.1 mg/dL (1.7-2.9) 04/10/21 04:15 Total Bilirubin 0.30 mg/dL (0.2-1.0) 04/11/21 04:05 AST 17 Units/L (15-37) 04/11/21 04:05 ALT 27 Units/L (12-78) 04/11/21 04:05 Alkaline Phosphatase 49 Units/L (46-116) 04/11/21 04:05 Total Protein 6.3 g/dL (6.4-8.2) L 04/11/21 04:05 Albumin 2.7 g/dL (3.4-5.0) L 04/11/21 04:05 Globulin 3.6 g/dL (2.5-4.5) 04/11/21 04:05 Albumin/Globulin Ratio 0.8 Ratio (1.1-2.1) L 04/11/21 04:05 Specimen Type Catherized urine 04/05/21 17:05 Urine Color Yellow (YELLOW) 04/05/21 17:05 Urine Appearance Slightly hazy (CLEAR) 04/05/21 17:05 Urine pH 5.0 (5.0 - 8.0) 04/05/21 17:05 Ur Specific [place] 1.025 (1.000-1.030) 04/05/21 17:05 Urine Protein 2+ (NEGATIVE) 04/05/21 17:05 Urine Glucose (UA) Negative (NEGATIVE) 04/05/21 17:05 Urine Ketones Negative (NEGATIVE) 04/05/21 17:05 Urine Occult Blood 2+ (NEGATIVE) 04/05/21 17:05 Urine Nitrite Negative (NEGATIVE) 04/05/21 17:05 Urine Bilirubin 1+ (NEGATIVE) 04/05/21 17:05 Urine Urobilinogen Normal (NORMAL) 04/05/21 17:05 Ur Leukocyte Esterase 1+ (NEGATIVE) 04/05/21 17:05 Urine RBC 3-5 /HPF (0-3) A 04/05/21 17:05 Urine WBC 3-5 /HPF (0-5) 04/05/21 17:05 Ur Squamous Epith Cells Few /HPF (NEGATIVE) 04/05/21 17:05 Urine Bacteria Trace /HPF (NEGATIVE) 04/05/21 17:05 Urine Yeast Few /HPF (NEGATIVE) 04/05/21 17:05 Ur Culture Indicated? No/not indicated 04/05/21 17:05 Vancomycin Trough 19.3 ug/mL (15-20) 04/09/21 20:32 SARS-CoV-2 (PCR) Negative (NEGATIVE) 04/05/21 13:10 Influenza Type A (PCR) Negative (NEGATIVE) 04/05/21 13:10 Influenza Type B (PCR) Negative (NEGATIVE) 04/05/21 13:10 RSV (PCR) Negative (NEGATIVE) 04/05/21 13:10 - Plan (1) Bronchopneumonia Status: Acute Plan: D5W AT 75 ML/HR, ALBUMIN 25% IV DAILY, VANCOMYCIN, FORTAZ 1G IV BID, ALBUTEROL NEBS Q6H, FENTANYL 25MCG/HR PATCH, ATROPINE DROPS PRN SECRETIONS. RESUME HOME MEDS (2) UTI (urinary tract infection) Status: Acute Qualifiers: Urinary tract infection type: acute cystitis Hematuria presence: without hematuria Qualified Code(s): N30.00 - Acute cystitis without hematuria (3) Sepsis Status: Acute Qualifiers: Sepsis type: sepsis due to unspecified organism Sepsis acute organ dysfunction status: unspecified Qualified Code(s): A41.9 - Sepsis, unspecified organism
[2021-04-11 20:42] LABS: CREATININE 0.87 mg/dL (0.55-1.02)
[2021-04-11 20:45] LABS: VANCOMYCIN,TROUGH 30.5 ug/mL (15-20)
[2021-04-11] MEDS: ARICEPT TAB 5 MG PO SCH (21:08)
[2021-04-11] MEDS: LIPITOR TAB 10 MG PO SCH (22:15)
[2021-04-12] MEDS: PROVENTIL NEB TX 0.083% 2.5MG/ 3ML NEB SCH ×4 (00:15→17:47)
[2021-04-12] MEDS: D5W 1,000 ML IV 1,000 ML IV SCH ×4 (00:24→16:22)
[2021-04-12 05:24] LABS: BASOPHILS # (AUTO) 0.1 X10^3/uL (0.0-0.1); BASOPHILS % (AUTO) 0.5 % (0.2-1.0); EOSINOPHILS # (AUTO) 0.2 x10^3/uL (0.0-0.2); EOSINOPHILS % (AUTO) 1.5 % (0.9-2.9); HEMATOCRIT 22.8 % (36.0-47.0); HEMOGLOBIN 7.7 g/dL (12.0-16.0); LYMPHOCYTES # (AUTO) 1.9 X10^3/uL (1.3-2.9); LYMPHOCYTES % (AUTO) 15.9 % (21.0-51.0); MEAN CORPUSCULAR HEMOGLOBIN 27.9 pg (27.0-34.0); MEAN CORPUSCULAR HGB CONC 33.8 g/dL (33.0-35.0); MEAN CORPUSCULAR VOLUME 82.6 fL (80.0-100.0); MEAN PLATELET VOLUME 7.4 fL (7.4-11.0); MONOCYTES % (AUTO) 8.9 % (0.0-13.0); NEUTROPHILS # (AUTO) 8.6 x10^3/uL (2.2-4.8); NEUTROPHILS % (AUTO) 73.2 % (42.0-75.0); PLATELET COUNT 322 X10^3/uL (150.0-450.0); RED BLOOD COUNT 2.76 X10^6/uL (3.5-5.4); WHITE BLOOD COUNT 11.8 X10^3/uL (3.6-10.0)
[2021-04-12 05:39] LABS: ALANINE AMINOTRANSFERASE 29 Units/L (12-78); ALBUMIN 2.7 g/dL (3.4-5.0); ALKALINE PHOSPHATASE 46 Units/L (46-116); ASPARTATE AMINO TRANSFERASE 29 Units/L (15-37); BLOOD UREA NITROGEN 11 mg/dL (7-18); CALCIUM 8.8 mg/dL (8.5-10.1); CARBON DIOXIDE 18.9 mmol/L (21-32); CHLORIDE 106 mmol/L (98-107); COR CA(FOR HYPOALB) 9.8 mg/dL (8.5-10.1); CREATININE 0.64 mg/dL (0.55-1.02); SODIUM 137 mmol/L (136-145); TOTAL PROTEIN 6.2 g/dL (6.4-8.2); eGFR NON BLACK RACES > 60 (>60)
[2021-04-12] MEDS: FORTAZ or TAZICEF VIAL INJ 1 G in NS 100 ML IV + SPIKE MINIBAG* 100 ML IV SCH ×3 (05:59→21:11)
[2021-04-12] MEDS: ALBUMIN HUMAN 25%- 100 ML 100 ML IV SCH (08:50)
[2021-04-12] MEDS: ALDACTONE TAB 25 MG PO SCH (08:50)
[2021-04-12] MEDS: CELEXA PO SCH (08:51)
[2021-04-12] MEDS: CARDIZEM CD 240 MG 24-HR PO SCH (08:51)
[2021-04-12] MEDS: COLACE CAP 100 MG PO SCH ×2 (08:51→20:54)
[2021-04-12] MEDS: COZAAR PO SCH (08:51)
[2021-04-12] MEDS: BUTT CREAM (COMPOUND) TOP SCH ×4 (08:51→20:54)
[2021-04-12] MEDS: ELIQUIS PO SCH ×2 (08:51→20:54)
[2021-04-12] MEDS: ISOSORBIDE MONONITRATE ER 24-HR PO SCH (08:51)
[2021-04-12] MEDS: MEGACE PO SCH ×2 (08:51→20:54)
[2021-04-12] MEDS: PROTONIX TAB 40 MG PO SCH ×2 (08:52→20:54)
[2021-04-12] MEDS: XANAX PO SCH ×2 (08:52→20:55)
[2021-04-12] MEDS: TOPAMAX PO SCH ×2 (08:52→20:55)
[2021-04-12] MEDS: NORCO 7.5/325 MG TAB PO SCH (08:52)
[2021-04-12] MEDS: SYNTHROID 25 mcg TAB PO SCH (08:52)
[2021-04-12] MEDS ORDERED: PHARMACY COMMENT IV NR (09:00)
[2021-04-12] MEDS: CHECK PATCH XX SCH ×2 (09:58→20:54)
[2021-04-12 10:54] LABS: CREATININE 0.82 mg/dL (0.55-1.02)
[2021-04-12 10:56] LABS: VANCOMYCIN,TROUGH 21.9 ug/mL (15-20)
[2021-04-12] MEDS ORDERED: NS 250 ML IV 250 ML IV PRN (14:00)
[2021-04-12] MEDS ORDERED: TYLENOL 325 MG TAB PO ONE (14:02)
[2021-04-12] MEDS ORDERED: BENADRYL INJ 50 MG VIAL IVP ONE (14:02)
--- NOTE | 2021-04-12 15:33 | PCM.PROG ---
Progress Note - Progress Note for Day of Date of Exam: 04/12/21 - Subjective Subjective: WAS ADMITTED FOR TREATMENT OF BRONCHOPNEUMONIA, UTI, AND SEPSIS. TODAY, SHE IS ALERT, SITTING UP IN BED ON MORNING ROUNDS. SHE RESPONDS VERBALLY AND IS ABLE TO FOLLOW COMMANDS. STAFF AND FAMILY REPORTS THAT SHE CONTINUES WITH GENERALIZED WEAKNESS. PATIENT DENIES COMPLAINTS THIS MORNING. ON EXAMINATION, HEART IS REGULAR IN RATE AND RHYTHM. BILATERAL LUNGS NOTED WITH DIMINISHED LUNG SOUNDS THROUGHOUT. ABDOMEN IS ROUND, SOFT, AND NON-TENDER WITH NORMAL BOWEL SOUNDS NOTED IN ALL QUADRANTS. HER VITALS THIS MORNING ARE: 98.8-101-18-99%-135/66. LABS WERE OBTAINED. ABNORMAL LAB VALUES INCLUDE THE FOLLOWING: WBC 11.8, RBC 2.76, HGB 7.7, HCT 22.8, CARBON DIOXIDE 18.9, TOTAL PROTEIN 6.2, ALBUMIN 2.7. SHE IS CURRENTLY RECEIVING D5W AT 75 ML/HR, ALBUMIN 25% IV DAILY, VANCOMYCIN 1G IV Q12H, FORTAZ 1G IV BID, ALBUTEROL NEBS Q6H, FENTANYL 25MCG/HR PATCH, ATROPINE DROPS PRN SECRETIONS. MOST OF HER HOME MEDICATIONS HAVE BEEN RESUMED. WE WILL TRANSFUSE 1 UNIT OF PACKED RED BLOOD CELLS TODAY. OTHERWISE, WE WILL CONTINUE WITH CURRENT PLAN OF CARE. WE PLAN TO FOLLOW UP WITH AM LABS AND CONTINUE TO MONITOR. TIME SPENT ON CLINICAL ASSESSMENT, REVIEWING LABS AND IMAGING, DECISION MAKING, AND DOCUMENTATION GREATER THAN 45 MINUTES. - Past Medical Family Social History Past Med/Fam/Surg Hx: No changes since H&P Allergies: Allergies morphine Allergy (Verified 08/06/20 13:53) rofecoxib [From Vioxx] Allergy (Verified 08/06/20 13:53) - Review of Systems ROS: No change since H&P - Vital Signs and I&O's Vital Signs: Temperature 98.6 F Pulse Rate [Right Brachial] 100 Pulse Rate 84 Respiratory Rate 16 Blood Pressure [Right Arm] 113/65 Blood Pressure 154/67 O2 Sat by Pulse Oximetry 97 Intake and Output: Intake & Output 04/10/21 04/11/21 04/12/21 04/13/21 11:59 11:59 11:59 11:59 Intake Total 2463 / 2463 2254 / 2254 2056 / 2056 781 / 781 Output Total 200 / 200 Balance 2463 / 2463 2054 / 2054 2057 / 2057 781 / 781 - Physical Exam Oriented: Normal Eyes: Normal Ear: Normal Nose: Normal Throat: Normal Respiratory: Generalized, Diminished Cardiovascular: Normal : Normal Auscultation: Bowel Sounds: Normal Palpation: Normal Tenderness: Normal Skin: Normal Musculoskeletal: Normal Psychiatric: Normal Mood Description: Calm Affect: Normal Speech Pattern: Appropriate - Laboratory and Diagnostics Result Diagrams: 04/12/21 04:28 04/12/21 09:56 Labs: 04/05/21 16:05 Blood Blood Culture - Final 04/08/21 13:25 Stool Stool Culture - Final 04/08/21 13:25 Stool - Final 04/08/21 08:55 Blood Blood Culture - Preliminary 04/08/21 08:49 Blood Blood Culture - Preliminary 04/05/21 15:55 Blood Blood Culture - Final 04/05/21 17:05 Urine,Clean Catch Urine Culture - Final Laboratory WBC 11.8 X10^3/uL (3.6-10.0) H 04/12/21 04:28 RBC 2.76 X10^6/uL (3.5-5.4) L 04/12/21 04:28 Hgb 7.7 g/dL (12.0-16.0) L 04/12/21 04:28 Hct 22.8 % (36.0-47.0) L 04/12/21 04:28 MCV 82.6 fL (80.0-100.0) 04/12/21 04:28 MCH 27.9 pg (27.0-34.0) 04/12/21 04:28 MCHC 33.8 g/dL (33.0-35.0) 04/12/21 04:28 RDW 15.0 % (11.6-16.5) 04/12/21 04:28 Plt Count 322 X10^3/uL (150.0-450.0) 04/12/21 04:28 Plt Count Comment Adequate (ADEQUATE) 04/07/21 05:16 MPV 7.4 fL (7.4-11.0) 04/12/21 04:28 Neut % (Auto) 73.2 % (42.0-75.0) 04/12/21 04:28 Lymph % (Auto) 15.9 % (21.0-51.0) L 04/12/21 04:28 [place] % (Auto) 8.9 % (0.0-13.0) 04/12/21 04:28 Eos % (Auto) 1.5 % (0.9-2.9) 04/12/21 04:28 Baso % (Auto) 0.5 % (0.2-1.0) 04/12/21 04:28 Neut # (Auto) 8.6 x10^3/uL (2.2-4.8) H 04/12/21 04:28 Lymph # (Auto) 1.9 X10^3/uL (1.3-2.9) 04/12/21 04:28 [place] # (Auto) 1.0 x10^3/uL (0.3-0.8) H 04/12/21 04:28 Eos # (Auto) 0.2 x10^3/uL (0.0-0.2) 04/12/21 04:28 Baso # (Auto) 0.1 X10^3/uL (0.0-0.1) 04/12/21 04:28 Absolute Nucleated RBC 0.0 /100WBC 04/12/21 04:28 Total Counted 100 04/07/21 05:16 Neutrophils % (Manual) 86 % (39-76) H 04/07/21 05:16 Lymphocytes % (Manual) 5 % (13-43) L 04/07/21 05:16 Monocytes % (Manual) 8 % (4-9) 04/07/21 05:16 Eosinophils % (Manual) 1 % (0-6) 04/07/21 05:16 Plt Morphology Comment Normal (NORMAL) 04/07/21 05:16 RBC Morphology Normal (NORMAL) 04/07/21 05:16 Sodium 137 mmol/L (136-145) 04/12/21 04:28 Corrected Sodium TNP 04/12/21 04:28 Potassium 4.0 mmol/L (3.5-5.1) 04/12/21 04:28 Chloride 106 mmol/L (98-107) 04/12/21 04:28 Carbon Dioxide 18.9 mmol/L (21-32) L 04/12/21 04:28 BUN 11 mg/dL (7-18) 04/12/21 04:28 Creatinine 0.82 mg/dL (0.55-1.02) 04/12/21 09:56 Est GFR (MDRD) Af Amer > 60 (>60) 04/12/21 04:28 Est GFR (MDRD) Non-Af > 60 (>60) 04/12/21 04:28 Glucose 90 mg/dL (65-99) 04/12/21 04:28 POC Glucose (mg/dL) 111 mg/dL (65-99) H 04/12/21 11:34 Lactic Acid 1.4 mmol/L (0.4-2.0) 04/05/21 15:55 Calcium 8.8 mg/dL (8.5-10.1) 04/12/21 04:28 Corrected Calcium 9.8 mg/dL (8.5-10.1) 04/12/21 04:28 Magnesium 2.1 mg/dL (1.7-2.9) 04/10/21 04:15 Total Bilirubin 0.50 mg/dL (0.2-1.0) 04/12/21 04:28 AST 29 Units/L (15-37) 04/12/21 04:28 ALT 29 Units/L (12-78) 04/12/21 04:28 Alkaline Phosphatase 46 Units/L (46-116) 04/12/21 04:28 Total Protein 6.2 g/dL (6.4-8.2) L 04/12/21 04:28 Albumin 2.7 g/dL (3.4-5.0) L 04/12/21 04:28 Globulin 3.5 g/dL (2.5-4.5) 04/12/21 04:28 Albumin/Globulin Ratio 0.8 Ratio (1.1-2.1) L 04/12/21 04:28 Specimen Type Catherized urine 04/05/21 17:05 Urine Color Yellow (YELLOW) 04/05/21 17:05 Urine Appearance Slightly hazy (CLEAR) 04/05/21 17:05 Urine pH 5.0 (5.0 - 8.0) 04/05/21 17:05 Ur Specific [place] 1.025 (1.000-1.030) 04/05/21 17:05 Urine Protein 2+ (NEGATIVE) 04/05/21 17:05 Urine Glucose (UA) Negative (NEGATIVE) 04/05/21 17:05 Urine Ketones Negative (NEGATIVE) 04/05/21 17:05 Urine Occult Blood 2+ (NEGATIVE) 04/05/21 17:05 Urine Nitrite Negative (NEGATIVE) 04/05/21 17:05 Urine Bilirubin 1+ (NEGATIVE) 04/05/21 17:05 Urine Urobilinogen Normal (NORMAL) 04/05/21 17:05 Ur Leukocyte Esterase 1+ (NEGATIVE) 04/05/21 17:05 Urine RBC 3-5 /HPF (0-3) A 04/05/21 17:05 Urine WBC 3-5 /HPF (0-5) 04/05/21 17:05 Ur Squamous Epith Cells Few /HPF (NEGATIVE) 04/05/21 17:05 Urine Bacteria Trace /HPF (NEGATIVE) 04/05/21 17:05 Urine Yeast Few /HPF (NEGATIVE) 04/05/21 17:05 Ur Culture Indicated? No/not indicated 04/05/21 17:05 Vancomycin Trough 21.9 ug/mL (15-20) H* 04/12/21 09:56 SARS-CoV-2 (PCR) Negative (NEGATIVE) 04/05/21 13:10 Influenza Type A (PCR) Negative (NEGATIVE) 04/05/21 13:10 Influenza Type B (PCR) Negative (NEGATIVE) 04/05/21 13:10 RSV (PCR) Negative (NEGATIVE) 04/05/21 13:10 Blood Type B POSITIVE 04/12/21 09:56 Antibody Screen Negative 04/12/21 09:56 Crossmatch See Detail 04/12/21 09:56 - Plan (1) Bronchopneumonia Status: Acute Plan: D5W AT 75 ML/HR, ALBUMIN 25% IV DAILY, VANCOMYCIN, FORTAZ 1G IV BID, ALBUTEROL NEBS Q6H, FENTANYL 25MCG/HR PATCH, ATROPINE DROPS PRN SECRETIONS. RESUME HOME MEDS (2) UTI (urinary tract infection) Status: Acute Qualifiers: Urinary tract infection type: acute cystitis Hematuria presence: without hematuria Qualified Code(s): N30.00 - Acute cystitis without hematuria (3) Sepsis Status: Acute Qualifiers: Sepsis type: sepsis due to unspecified organism Sepsis acute organ dysfunction status: unspecified Qualified Code(s): A41.9 - Sepsis, unspecified organism (4) Anemia Status: Acute Qualifiers: Anemia type: unspecified type Qualified Code(s): D64.9 - Anemia, unspecified Plan: TRANSFUSE 1 UNIT PRBC
[2021-04-12 19:45] LABS: HEMATOCRIT 26.1 % (36.0-47.0)
[2021-04-12] MEDS: ARICEPT TAB 5 MG PO SCH (20:53)
[2021-04-12] MEDS: LIPITOR TAB 10 MG PO SCH (20:54)
[2021-04-13] MEDS: PROVENTIL NEB TX 0.083% 2.5MG/ 3ML NEB SCH ×2 (00:10→06:17)
[2021-04-13] MEDS: FORTAZ or TAZICEF VIAL INJ 1 G in NS 100 ML IV + SPIKE MINIBAG* 100 ML IV SCH (05:27)
[2021-04-13] MEDS: D5W 1,000 ML IV 1,000 ML IV SCH (05:27)
[2021-04-13 06:10] LABS: BASOPHILS % (AUTO) 0 % (0.2-1.0); EOSINOPHILS # (AUTO) 0.4 x10^3/uL (0.0-0.2); EOSINOPHILS % (AUTO) 3.9 % (0.9-2.9); HEMATOCRIT 26.8 % (36.0-47.0); HEMOGLOBIN 9.1 g/dL (12.0-16.0); LYMPHOCYTES # (AUTO) 0.2 X10^3/uL (1.3-2.9); LYMPHOCYTES % (AUTO) 2.5 % (21.0-51.0); MEAN CORPUSCULAR HEMOGLOBIN 28.6 pg (27.0-34.0); MEAN CORPUSCULAR HGB CONC 34.1 g/dL (33.0-35.0); MEAN PLATELET VOLUME 7.1 fL (7.4-11.0); MONOCYTES # (AUTO) 0.3 x10^3/uL (0.3-0.8); MONOCYTES % (AUTO) 3.4 % (0.0-13.0); NEUTROPHILS # (AUTO) 9.2 x10^3/uL (2.2-4.8); NEUTROPHILS % (AUTO) 90.2 % (42.0-75.0); PLATELET COUNT 358 X10^3/uL (150.0-450.0); RED BLOOD COUNT 3.19 X10^6/uL (3.5-5.4); RED CELL DISTRIBUTION WIDTH 15.1 % (11.6-16.5); WHITE BLOOD COUNT 10.2 X10^3/uL (3.6-10.0)
[2021-04-13 06:23] LABS: ALANINE AMINOTRANSFERASE 26 Units/L (12-78); ALBUMIN 3.1 g/dL (3.4-5.0); ALKALINE PHOSPHATASE 50 Units/L (46-116); ASPARTATE AMINO TRANSFERASE 13 Units/L (15-37); BLOOD UREA NITROGEN 13 mg/dL (7-18); CALCIUM 9.1 mg/dL (8.5-10.1); CHLORIDE 105 mmol/L (98-107); COR CA(FOR HYPOALB) 9.8 mg/dL (8.5-10.1); CREATININE 0.69 mg/dL (0.55-1.02); SODIUM 137 mmol/L (136-145); TOTAL PROTEIN 6.3 g/dL (6.4-8.2); eGFR NON BLACK RACES > 60 (>60)
[2021-04-13 08:09] VITALS: BP 131/70
[2021-04-13] MEDS ORDERED: PHARMACY COMMENT IV NR (09:00)
[2021-04-13] MEDS: ALBUMIN HUMAN 25%- 100 ML 100 ML IV SCH (09:02)
[2021-04-13] MEDS: ELIQUIS PO SCH (09:03)
[2021-04-13] MEDS: COZAAR PO SCH (09:03)
[2021-04-13] MEDS: COLACE CAP 100 MG PO SCH (09:04)
[2021-04-13] MEDS: CARDIZEM CD 240 MG 24-HR PO SCH (09:04)
[2021-04-13] MEDS: CELEXA PO SCH (09:04)
[2021-04-13] MEDS: SYNTHROID 25 mcg TAB PO SCH (09:05)
[2021-04-13] MEDS: XANAX PO SCH (09:05)
[2021-04-13] MEDS: TOPAMAX PO SCH (09:05)
[2021-04-13] MEDS: ALDACTONE TAB 25 MG PO SCH (09:05)
[2021-04-13] MEDS: BUTT CREAM (COMPOUND) TOP SCH (09:06)
[2021-04-13] MEDS: PROTONIX TAB 40 MG PO SCH (09:06)
[2021-04-13] MEDS: ISOSORBIDE MONONITRATE ER 24-HR PO SCH (09:06)
[2021-04-13] MEDS: MEGACE PO SCH (09:06)
[2021-04-13] MEDS: CHECK PATCH XX SCH (09:07)
[2021-04-13] MEDS ORDERED: ELIQUIS PO SCH ×2 (09:15→21:00)
[2021-04-13 10:16] LABS: CREATININE 0.78 mg/dL (0.55-1.02); VANCOMYCIN,TROUGH 11.7 ug/mL (15-20)
== END 2021-04-13 11:50 | DRG 871 ==
LOC: MED/SURG → OBSVTOIN 12:31
PROVIDERS: ADMIT Internal Medicine; ATTEND Internal Medicine

== ENCOUNTER 2021-04-18 01:27 | Inpatient (IN) ==
[2021-04-18] MEDS ORDERED: CARDIZEM INJ 50 MG VIAL IVP ONE ×2 (01:45→02:49)
[2021-04-18] MEDS ORDERED: NS 500 ML IV 500 ML IV ONE (01:50)
[2021-04-18] MEDS ORDERED: NS 1,000 ML IV 1,000 ML ONE ×3 (01:50→07:15)
[2021-04-18] MEDS ORDERED: CARDIZEM INJ 50 MG VIAL ONE (01:51)
[2021-04-18 02:10] LABS: BASOPHILS % (AUTO) 0.2 % (0.2-1.0); EOSINOPHILS # (AUTO) 0.2 x10^3/uL (0.0-0.2); EOSINOPHILS % (AUTO) 0.6 % (0.9-2.9); HEMATOCRIT 33.9 % (36.0-47.0); LYMPHOCYTES % (AUTO) 11.3 % (21.0-51.0); MEAN CORPUSCULAR HEMOGLOBIN 27.9 pg (27.0-34.0); MEAN CORPUSCULAR HGB CONC 32.3 g/dL (33.0-35.0); MEAN CORPUSCULAR VOLUME 86.3 fL (80.0-100.0); MEAN PLATELET VOLUME 7.4 fL (7.4-11.0); MONOCYTES # (AUTO) 2.1 x10^3/uL (0.3-0.8); MONOCYTES % (AUTO) 7.8 % (0.0-13.0); NEUTROPHILS # (AUTO) 21.2 x10^3/uL (2.2-4.8); NEUTROPHILS % (AUTO) 80.1 % (42.0-75.0); PLATELET COUNT 860 X10^3/uL (150.0-450.0); RED BLOOD COUNT 3.93 X10^6/uL (3.5-5.4); RED CELL DISTRIBUTION WIDTH 16.5 % (11.6-16.5); WHITE BLOOD COUNT 26.5 X10^3/uL (3.6-10.0)
--- NOTE | 2021-04-18 02:14 | DR.AMS ---
HPI Time Seen Time Seen by Provider: 04/18/21 01:44 Complaint Cheif Complaint Doctors Comments: 71 y/o female brought over from the [facility] for altered mental status. Pt nonverbal, not responding to stimuli, gazing to the right. RN called the [facility] to ask when she was last seen as normal. The nurse at the [facility] states she was like this when she came on shift at 1830 (7+ hours ago). Was normal the night before. Not sure why the delay in sending over. BS on arrival 178. Monitor shows tachycardia around 135. Appears to be atrial fibrillation with RVR. BP 90s/60s. Pt unable to offer complaints. No further sym ptoms reported from [facility]. Reviewed Nurses Notes Reviewed: Yes PMH PMH Past Medical History: Anxiety, Arthritis, CHF, COPD, Coronary Artery Disease, Depression, Diabetes, Migraines, Hypertension and Hypothyroidism Past Surgical History: Yes Surgical History: Cholecystectomy, Hysterectomy and Other Family History Family Medical History: Diabetes Mellitus, Cancer, OR and Coronary Artery Disease Social History Do you use any recreational Drugs:: No ROS Review of Systems Unable to Obtain Due To: Altered mental status PE Vitals Vital Signs: Temp Pulse Resp BP BP Pulse Ox 04/18/21 07:45 109 H 21 111/63 99 04/18/21 07:30 118 H 21 110/57 100 04/18/21 07:15 122 H 22 100/55 99 04/18/21 07:07 98.4 F 124 H 22 126/67 99 04/18/21 07:03 18 04/18/21 07:00 121 H 27 H 126/67 98 04/18/21 06:46 121 H 25 H 125/63 04/18/21 06:45 121 H 26 H 88 L 04/18/21 06:30 121 H 26 H 147/69 93 L 04/18/21 06:15 120 H 24 138/73 100 04/18/21 06:00 120 H 23 117/66 100 04/18/21 05:45 120 H 23 116/67 100 04/18/21 05:30 122 H 26 H 152/74 100 04/18/21 05:15 124 H 27 H 133/77 99 04/18/21 05:00 125 H 26 H 133/66 99 04/18/21 04:45 123 H 29 H 126/57 99 04/18/21 04:30 121 H 25 H 118/93 04/18/21 04:22 122 H 25 H 128/84 04/18/21 04:15 122 H 28 H 04/18/21 04:00 119 H 30 H 04/18/21 03:45 120 H 32 H 04/18/21 03:30 119 H 30 H 04/18/21 03:15 119 H 31 H 04/18/21 03:00 113 H 32 H 98 04/18/21 02:45 120 H 32 H 04/18/21 02:44 120 H 31 H 143/92 04/18/21 02:30 122 H 32 H 89 L 04/18/21 02:15 121 H 30 H 04/18/21 02:14 121 H 29 H 04/18/21 02:10 132/87 04/18/21 01:29 100.6 F H 136 H 32 H 101/77 97 04/15/21 15:32 155/77 General Limitations: Altered Mental Status General Appearance: Other (gazing to right, having generalized weakness.) Head Head Exam: Normal Inspection, Atraumatic and Normocephalic Eyes Pupils: Regular, Round: Left (L 5 mm, R 4 mm) ENT ENT Exam: Mucous Membranes Moist Neck Neck Exam: Normal Inspection Respiratory Respiratory Exam: Normal Lung Sounds Bilat and Respiratory Distress (tachypnea) Respiratory Exam: Bilateral: Clear to Auscultation Cardiovascular Cardiovascular Exam: Tachycardia Abdominal Exam Abdominal Exam: Normal Bowel Sounds and Soft Extremities Extremities Exam: Normal Inspection (no obvious deformities. Not moving exts spontaneously.); negative Edema Skin Skin Exam: Warm, Dry and Normal Color; negative Diaphoresis Other Exam Other Exam: Unable to fully assess neuro exam - but unresponsive to verbal or noxious stimuli. Gazing to right, L pupil slightly larger than R. No obvious facial droop. + generalized weakness. Unable to assess sensation, localized weakness, cerebellar exam. GCS - 6 (eyes open spontaneously, no motor or verbal response). MDM Differential Diagnosis Metabolic: Hypoglycemia and Hypoxemia Structural: CVA and SAH Infectious: Sepsis and UTI COURSE Treatment Treatment: 71 y/o female sent over from the [facility] for evaluation of altered mental status. Unknown time of duration. The nurse at the [facility] states she was like this when she came on duty at 1830. Was fine the night before. BS not low. Does have tachycardia in the 140s, probable afib with RVR. W/u initiated. Given IV fluids, IV diltizem. Pt taken to CT - no obvious hemorrhage. No obvious sub acute CVA. Labs show WBC to be elevated to 26K. Platelets elevated to 860. Chemistries show potassium to be elevated at 6.8, with a low bicarb of 14, elevated Cr 3.8. ABG - very acidotic, pH 7.29. Given Calcium gluconate, sodium bicarb, regular insulin and D50 IV to treat her potassium. Given IV Zosyn for probable UTI/urosepsis. + nontraumatic renal injury - Cr 3.8 (was 0.92 few days ago), and WBC 26K. Cardiac enzymes negative. Additonal IV fluids given. 0445 - pt more awake, alert. Able to speak a bit now. States she is feeling a little better. Clinically with sepsis from a UTI. Seen recently in the ER, dx'd with UTI and treated with cipro. Urine culture shows growth resistent to quinolones, was sensitive to Zosyn. Given IV Zosyn. ROR Labs Reviewed Laboratory Results Reviewed?: Yes Result Diagrams: 04/18/21 01:36 04/18/21 07:09 Laboratory: WBC 26.5 X10^3/uL (3.6-10.0) H D 04/18/21 01:36 RBC 3.93 X10^6/uL (3.5-5.4) 04/18/21 01:36 Hgb 11.0 g/dL (12.0-16.0) L 04/18/21 01:36 Hct 33.9 % (36.0-47.0) L 04/18/21 01:36 MCV 86.3 fL (80.0-100.0) 04/18/21 01:36 MCH 27.9 pg (27.0-34.0) 04/18/21 01:36 MCHC 32.3 g/dL (33.0-35.0) L 04/18/21 01:36 RDW 16.5 % (11.6-16.5) 04/18/21 01:36 Plt Count 860 X10^3/uL (150.0-450.0) H 04/18/21 01:36 Plt Count Comment Increased (ADEQUATE) A 04/18/21 01:36 MPV 7.4 fL (7.4-11.0) 04/18/21 01:36 Neut % (Auto) 80.1 % (42.0-75.0) H 04/18/21 01:36 Lymph % (Auto) 11.3 % (21.0-51.0) L 04/18/21 01:36 [place] % (Auto) 7.8 % (0.0-13.0) 04/18/21 01:36 Eos % (Auto) 0.6 % (0.9-2.9) L 04/18/21 01:36 Baso % (Auto) 0.2 % (0.2-1.0) 04/18/21 01:36 Neut # (Auto) 21.2 x10^3/uL (2.2-4.8) H 04/18/21 01:36 Lymph # (Auto) 3.0 X10^3/uL (1.3-2.9) H 04/18/21 01:36 [place] # (Auto) 2.1 x10^3/uL (0.3-0.8) H 04/18/21 01:36 Eos # (Auto) 0.2 x10^3/uL (0.0-0.2) 04/18/21 01:36 Baso # (Auto) 0.0 X10^3/uL (0.0-0.1) 04/18/21 01:36 Absolute Nucleated RBC 0.1 /100WBC 04/18/21 01:36 Total Counted 100 04/18/21 01:36 Neutrophils % (Manual) 71 % (39-76) 04/18/21 01:36 Band Neutrophils % 9 % (0-10) 04/18/21 01:36 Lymphocytes % (Manual) 13 % (13-43) 04/18/21 01:36 Monocytes % (Manual) 7 % (4-9) 04/18/21 01:36 Plt Morphology Comment Normal (NORMAL) 04/18/21 01:36 RBC Morphology Normal (NORMAL) 04/18/21 01:36 PT 21.2 SECONDS (11.8-14.3) 04/18/21 03:55 INR Target Range - 04/18/21 03:55 INR 1.94 (0.8-1.3) H 04/18/21 03:55 APTT 38.8 SECONDS (22.9-36.5) H 04/18/21 03:55 PTT Comment - 04/18/21 03:55 Sample Site Rrad 04/18/21 03:00 ABG pH 7.290 (7.35-7.45) L 04/18/21 03:00 ABG pCO2 21.0 mmHg (35.0-45.0) L 04/18/21 03:00 ABG pO2 92.0 mmHg (80.0-100.0) 04/18/21 03:00 ABG HCO3 10.1 mmol/L (22-26) L* 04/18/21 03:00 ABG O2 Saturation 96.0 % (90-100) 04/18/21 03:00 ABG Base Excess -14.5 mmol/L (-2.0-2.0) L 04/18/21 03:00 Lui Test Pos 04/18/21 03:00 A-a Gradient 81.0 mmHg 04/18/21 03:00 FiO2 28.0 04/18/21 03:00 Blood Gas Comments Tal well ms 04/18/21 03:00 Sodium 137 mmol/L (136-145) 04/18/21 01:36 Corrected Sodium 140 mmol/L (136-145) 04/18/21 01:36 Potassium 5.4 mmol/L (3.5-5.1) H 04/18/21 07:09 Chloride 107 mmol/L (98-107) 04/18/21 01:36 Carbon Dioxide 14.4 mmol/L (21-32) L* 04/18/21 01:36 BUN 52 mg/dL (7-18) H 04/18/21 01:36 Creatinine 3.80 mg/dL (0.55-1.02) H 04/18/21 01:36 Est GFR (MDRD) Af Amer 15 (>60) L 04/18/21 01:36 Est GFR (MDRD) Non-Af 12 (>60) L 04/18/21 01:36 Glucose 212 mg/dL (65-99) H 04/18/21 01:36 POC Glucose (mg/dL) 178 mg/dL (65-99) H 04/18/21 01:34 Lactic Acid 6.1 mmol/L (0.4-2.0) H 04/18/21 07:09 Calcium 9.9 mg/dL (8.5-10.1) 04/18/21 01:36 Corrected Calcium 10.6 mg/dL (8.5-10.1) H 04/18/21 01:36 Total Bilirubin 0.30 mg/dL (0.2-1.0) 04/18/21 01:36 AST 12 Units/L (15-37) L 04/18/21 01:36 ALT 17 Units/L (12-78) 04/18/21 01:36 Alkaline Phosphatase 69 Units/L (46-116) 04/18/21 01:36 Creatine Kinase 34 Units/L (26-192) 04/18/21 01:36 CK-MB (CK-2) < 1.0 ng/mL (0-4.0) 04/18/21 01:36 CK/CKMB % Calc 2.9 % (<4) 04/18/21 01:36 Troponin I < 0.02 ng/mL (0-1.5) 04/18/21 01:36 Total Protein 7.8 g/dL (6.4-8.2) 04/18/21 01:36 Albumin 3.1 g/dL (3.4-5.0) L 04/18/21 01:36 Globulin 4.7 g/dL (2.5-4.5) H 04/18/21 01:36 Albumin/Globulin Ratio 0.7 Ratio (1.1-2.1) L 04/18/21 01:36 SARS-CoV-2 (PCR) Negative (NEGATIVE) 04/18/21 02:21 Influenza Type A (PCR) Negative (NEGATIVE) 04/18/21 02:21 Influenza Type B (PCR) Negative (NEGATIVE) 04/18/21 02:21 RSV (PCR) Negative (NEGATIVE) 04/18/21 02:21 Other Results Comments: ABG pH 7.29, pCO2 21, pO2 92, BE -14.5, HCO3 10. XRAY XRAY Interpreted by: Both X-ray Results: CXR without acute abnormalities. EKG Rate: 125 Barton: Normal Rhythm: ST Block: None Hypertrophy: LAE ST: Nonsp (+ peaked T waves) Opioid Opioid Risk Tool Age (Can box if 16-45): No History of Preadolescent Sexual Abuse: No Total: 0 Total Score Risk Category: Low Risk Copyright: Miko CASIANO predicting aberrant behaviors Diagnosis Discharge Problem: Sepsis Qualifiers: Sepsis type: Escherichia coli Sepsis acute organ dysfunction status: with acute organ dysfunction Severe sepsis acute organ dysfunction type: acute renal failure Acute renal failure type: unspecified Severe sepsis shock status: with septic shock Qualified Code(s): A41.51 - Sepsis due to Escherichia coli [E. coli] ADDITIONAL NOTES Additional Notes Additional Notes: Critical Care - 35 minutes. Time spent in initial evaluation/management, treatment with IV fluids (x 3), treatment of hyperkalemia (w/3 meds), interpretation of labs, review of medical record/recent ER visit, change of antibiotic therapy, review of [facility] record, reevaluation of pt, discussion with admitting attending
[2021-04-18 02:28] LABS: BAND NEUTROPHILS % 9 % (0-10); PLATELET MORPHOLOGY COMMENT NORMAL (NORMAL)
--- NOTE | 2021-04-18 02:32 | CT ---
PROCEDURE: CT Head without Contrast .HISTORY: Altered mental status.TECHNIQUE: Axial images were performed through the head without the administration of IV contrast with multiplanar reformations . Dose reduction techniques including Automated Exposure Control (AEC) and adjustment of mA and kV were utilized .COMPARISON: 08/25/2020.TECHNICAL QUALITY: Satisfactory .FINDINGS:Brain shows no mass, hemorrhage, or acute stroke.Moderate periventricular old micro ischemic changes. Moderate diffuse cerebral and cerebellar atrophy.Ventricles are normal size for patient's age.No acute skull or scalp abnormality.Air-fluid level in the left sphenoidal sinus and cyst in the right sphenoidal sinus. Clear mastoids.IMPRESSION:1. No acute intracranial abnormality.2. Senescent changes.3. Acute chronic sinus changes.Electronically signed by: Aly Stevens (Apr 18, 2021 02:30:41)
[2021-04-18 02:39] LABS: ALANINE AMINOTRANSFERASE 17 Units/L (12-78); ALBUMIN 3.1 g/dL (3.4-5.0); ALKALINE PHOSPHATASE 69 Units/L (46-116); ASPARTATE AMINO TRANSFERASE 12 Units/L (15-37); BLOOD UREA NITROGEN 52 mg/dL (7-18); CALCIUM 9.9 mg/dL (8.5-10.1); CHLORIDE 107 mmol/L (98-107); CKMB % 2.9 % (<4); COR CA(FOR HYPOALB) 10.6 mg/dL (8.5-10.1); COR NA(FOR HYPERGLY) 140 mmol/L (136-145); CREATINE KINASE 34 Units/L (26-192); CREATINE KINASE MB < 1.0 ng/mL (0-4.0); SODIUM 137 mmol/L (136-145); TOTAL PROTEIN 7.8 g/dL (6.4-8.2); eGFR NON BLACK RACES 12 (>60)
[2021-04-18 02:41] LABS: CARBON DIOXIDE 14.4 mmol/L (21-32)
[2021-04-18 03:05] LABS: ABG ALLEN TEST POS; ABG BASE EXCESS -14.5 mmol/L (-2.0-2.0); ABG HCO3 10.1 mmol/L (22-26)
[2021-04-18] MEDS ORDERED: SODIUM BICARBONATE 8.4% INJ ADULT IVP ONE (03:07)
[2021-04-18] MEDS ORDERED: D50W ABBOJECT SYR IV ONE (03:07)
[2021-04-18] MEDS ORDERED: CALCIUM GLUCONATE 10% 1 G in NS 100 ML IV 100 ML IV ONE (03:09)
[2021-04-18] MEDS ORDERED: NovoLIN R (or HumuLIN R) IV ONE (03:11)
[2021-04-18] MEDS ORDERED: ZOSYN VIAL 3.375 GRAMS 3.375 G in NS 100 ML IV + SPIKE MINIBAG* 100 ML IV ONE (03:25)
[2021-04-18] MEDS ORDERED: NS 1,000 ML IV 1,000 ML IV ONE (03:30)
[2021-04-18] MEDS ORDERED: NS 100 ML IV 100 ML ONE (03:38)
[2021-04-18] MEDS ORDERED: D50W ABBOJECT SYR ONE (03:38)
[2021-04-18] MEDS ORDERED: ZOSYN VIAL 3.375 GRAMS IV ONE (03:38)
[2021-04-18] MEDS ORDERED: NovoLIN R (or HumuLIN R) ONE (03:39)
[2021-04-18] MEDS ORDERED: SODIUM BICARBONATE 8.4% INJ ADULT ONE (03:39)
[2021-04-18] MEDS ORDERED: NS 100 ML IV + SPIKE MINIBAG* 100 ML IV ONE (03:40)
[2021-04-18 04:32] LABS: LACTIC ACID 7.1 mmol/L (0.4-2.0)
--- NOTE | 2021-04-18 05:12 | RAD ---
PROCEDURE: Chest X-ray 1 View .HISTORY: SEPSIS .TECHNIQUE: AP view .COMPARISON: 04/15/2021.TECHNICAL QUALITY: Satisfactory .FINDINGS:Unchanged left-sided internal jugular Port-A-Cath.Normal size heart.Mediastinum and hilar regions show no masses or lymphadenopathy .Normal central vascularity .No pulmonary consolidation, masses, pleural fluid, or pneumothorax .No acute bony abnormality .IMPRESSION:No active cardiopulmonary disease .Electronically signed by: Aly Stevens (Apr 18, 2021 05:10:18)
[2021-04-18] MEDS ORDERED: DEMEROL INJ IVP ONE (06:53)
[2021-04-18] MEDS ORDERED: ZOFRAN INJ 4 MG VIAL IVP ONE (06:53)
[2021-04-18] MEDS ORDERED: DEMEROL INJ ONE (06:57)
[2021-04-18] MEDS ORDERED: ZOFRAN INJ 4 MG VIAL ONE (06:57)
[2021-04-18] MEDS ORDERED: NS 1,000 ML IV 1,000 ML IV SCH (08:00)
[2021-04-18 10:00] VITALS: BMI 26.1
[2021-04-18] MEDS ORDERED: PHARMACY CONSULT LTC MEDICATIONS XX SCH (10:00)
[2021-04-18] MEDS ORDERED: NovoLIN R (or HumuLIN R) SUBCUT PRN (11:55)
[2021-04-18] MEDS ORDERED: ANTIVERT TAB 25 MG PO PRN (12:15)
[2021-04-18] MEDS ORDERED: TESSALON PERLES PO PRN (12:15)
[2021-04-18] MEDS ORDERED: NITROSTAT SL PRN (12:15)
[2021-04-18] MEDS ORDERED: VANCOMYCIN IV *PREMIX 1 G/200 ML BAG 1 G/200 ML PIGGYBACK IV NR (13:00)
[2021-04-18] MEDS: DUONEB 0.5 MG/3 MG (3 mL) NEB SCH ×3 (13:01→20:30)
[2021-04-18] MEDS: FORTAZ or TAZICEF VIAL INJ 1 G in NS 100 ML IV + SPIKE MINIBAG* 100 ML IV SCH (14:28)
[2021-04-18] MEDS: COLACE CAP 100 MG PO SCH ×2 (14:29→21:30)
[2021-04-18] MEDS: ZAROXOLYN PO SCH (14:29)
[2021-04-18] MEDS: MICRO K EXTEN CAP 10 MEQ PO SCH ×2 (14:30→21:42)
[2021-04-18] MEDS: TOPAMAX PO SCH ×2 (14:31→21:30)
[2021-04-18] MEDS: CELEXA PO SCH (14:31)
[2021-04-18] MEDS: TOPROL XL PO SCH (14:32)
[2021-04-18] MEDS: MEGACE PO SCH ×2 (14:32→21:30)
[2021-04-18] MEDS: SYNTHROID 25 mcg TAB PO SCH (14:32)
[2021-04-18] MEDS: PROTONIX TAB 40 MG PO SCH ×2 (14:33→21:30)
[2021-04-18] MEDS: COZAAR PO SCH (14:33)
[2021-04-18] MEDS: PERCOCET TAB 5/325 MG PO SCH ×3 (14:34→21:30)
[2021-04-18] MEDS: ELIQUIS PO SCH ×2 (14:35→21:30)
[2021-04-18] MEDS: ASPIRIN EC 81 MG PO SCH (14:35)
[2021-04-18] MEDS: NS 1,000 ML IV 1,000 ML with SODIUM BICARBONATE 8.4% INJ ADULT 100 ML IV SCH ×4 (14:58→22:50)
--- NOTE | 2021-04-18 17:12 | DR.H&P ---
H&P - History & Physical for Day of: H&P Date: 04/18/21 - Chief Complaint Chief Complaint: LETHARGIC, AMS - History of Present Illness History of Present Illness: IS A 71 YEAR OLD PATIENT OF OURS. SHE HAS BEEN A RESIDENT AT [facility] FOR PHYSICAL THERAPY AND REHAB. SHE HAS RECENTLY BEEN HOSPITALIZED FOR TREATMENT OF PNEUMONIA AND SEPSIS. SHE WAS LAST RELEASED FROM THE HOSPITAL ON 04/13/21. SHE RETURNED THIS MORNING WITH SENIOR CARE STAFF REPORTING THAT PATIENT HAS BEEN LETHARGIC AND HAS HAD ALTERED MENTAL STATUS. THEY REPORT THAT PATIENT IS NOT RESPONDING TO STIMULI. THEY REPORT THAT SHE IS GAZING TO THE RIGHT SIDE. SENIOR CARE STAFF REPORTED THAT PATIENT HAD BEEN IN THIS STATE FOR AT LEAST 8 HOURS. ON ARRIVAL TO THE ER, SHE WAS NOTED TO BE TACHYCARDIC WITH HR 130-140s. MARKETING INFORMATION ANALYST REVEALED ATRIAL FIBRILLATION. HER BLOOD PRESSURE WAS 90s/60s. HER PMH INCLUDES: CAD, NH, HYPERTENSION, COPD, GERD, UTIs, DM II, ANXIETY, DEPRESSION, CHOLECYSTECTOMY, HYSTERECTOMY, RIGHT HIP REPLACEMENT, RIGHT SHOULDER REPLACEMENT. ON ARRIVAL, VITALS WERE 100.6-136-32-97%-101/77. LABS WERE OBTAINED. ABNORMAL LAB VALUES INCLUDE THE FOLLOWING: WBC 26.5, HGB 11.0, HCT 33.9, PLT COUNT 860, INR 1.94, PTT 38.8, POTASSIUM 6.8, CARBON DIOXIDE 14.4, BUN 52, CREATININE 3.80, GLUCOSE 212, LACTIC ACID 7.1, AST 12, ALBUMIN 3.1, GLOBULIN 4.7. CARDIAC ENZYMES WERE WITHIN NORMAL LIMITS. AN OUTPATIENT URINALYSIS WAS OBTAINED AND REVEALED: WBC TNTC, RBC 5-10, NITRITES POSITIVE, LEUKOCYTES 3+, BACTERIA 3+. URINE CULTURE REVEALED GROWTH OF E.COLI. COVID, INFLUENZA, AND RSV NEGATIVE. ABG WAS OBTAINED AND REVEALED: PH 7.290, PC02 21, P02 92, HC03 10.1, 02 SAT 96, BASE EXCESS - 14.5, A-A GRADIENT 81, FI02 28.0. BLOOD CULTURES WERE SET UP. A BRAIN CT WAS OBTAINED AND REVEALED: 1. No acute intracranial abnormality. 2. Senescent sal[place] ges. 3. Acute chronic sinus changes. EKG REVEALED: SINUS TACHYCARDIA WITH HR 125. A CHEST XRAY WAS OBTAINED AND REVEALED: No active cardiopulmonary disease. IN THE ER, SHE WAS GIVEN A NORMAL SALINE BOLUS X 2 LITERS, 1 AMP OF D50, 1 AMP OF SODIUM BICARB, 1 G CALCIUM GLUCONATE, HUMULIN R 5 UNITS, ZOSYN 3.375G IV X 1 DOSE, DEMEROL 25MG IV X 1 DOSE, ZOFRAN 4MG IV X 1 DOSE, AND CARDIZEM 10MG IV X 2 DOSES. SHE WAS ADMITTED TO THE HOSPITAL FOR FURTHER EVALUATION AND TREATMENT OF UTI, SEPSIS. SHE WAS STARTED ON NORMAL SALINE WITH 2 AMPS SODIUM BICARB AT 125ML/HR, VANCOMYCIN 1G IV DAILY, FORTAZ 1G IV DAILY, DUONEBS QID, OTBS ACHS, HUMULIN R SLIDING SCALE, AND HER HOME MEDICATIONS WERE RESUMED. OTHERWISE, WE PLAN TO FOLLOW UP WITH AM LABS AND CONTINUE TO MONITOR. TIME SPENT ON CLINICAL ASSESSMENT, REVIEWING LABS AND IMAGING, DECISION MAKING, AND DOCUMENTATION WAS GREATER THAN 75 MINUTES. - Past Medical History Past Medical History: Coronary Artery Disease, Hypertension, Diabetes, Depression, Anxiety, Hypothyroidism, COPD, Arthritis, Migraines, CHF Additional Medical History: Congenital Heart Disease, Asthma, Fibroids, Muscle Weakness, Back Pain, Degenerative Disc Disease - Past Surgical History Surgical History: Cholecystectomy, Hysterectomy, Other - Family History Family Medical History: Diabetes Mellitus, Cancer, NH, Coronary Artery Disease - Social History Does patient currently use any type of tobacco product: No Have you used tobacco products in the last 12 months: No Type of Tobacco Use: None Does any household member use tobacco: No Alcohol Use: None Drug Use: None - Medications Home Medications: morphine Allergy (Verified 08/06/20 13:53) rofecoxib [From Vioxx] Allergy (Verified 08/06/20 13:53) - Review of Systems Constitutional: Weakness Eyes: No Symptoms Reported ENT: No Symptoms Reported Respiratory: No Symptoms Reported Cardiovascular: No Symptoms Reported Gastrointestinal: No Symptoms Reported Genitourinary: No Symptoms Reported Musculoskeletal: No Symptoms Reported Skin: No Symptoms Reported Neurological: See HPI, Weakness, Confusion - Physical Exam Vital Signs: Temperature 98.4 F Pulse Rate [Left Radial] 104 Pulse Rate 72 Respiratory Rate 20 Blood Pressure [Left Arm] 190/78 Blood Pressure 123/62 O2 Sat by Pulse Oximetry 97 Oriented: Unable to test Eyes: Normal Ear: Normal Nose: Normal Throat: Normal Respiratory: Diminished Throughout Cardiovascular: Tachycardia, Irregular : Normal Auscultation: Bowel Sounds: Normal Palpation: Normal Tenderness: Normal Skin: Normal Musculoskeletal: Normal Psychiatric: Normal Mood Description: Calm Affect: Normal Speech Pattern: Unclear - Assessment/Plan (1) UTI (urinary tract infection) Qualifiers: Urinary tract infection type: acute cystitis Hematuria presence: with hematuria Qualified Code(s): N30.01 - Acute cystitis with hematuria Status: Acute Plan: ADMIT, NORMAL SALINE WITH 2 AMPS SODIUM BICARB AT 125ML/HR, VANCOMYCIN 1G IV DAILY, FORTAZ 1G IV DAILY, DUONEBS QID, OTBS ACHS, HUMULIN R SLIDING SCALE, AND HER HOME MEDICATIONS WERE RESUMED. (2) Sepsis Qualifiers: Sepsis type: Escherichia coli Sepsis acute organ dysfunction status: with acute organ dysfunction Severe sepsis acute organ dysfunction type: acute renal failure Acute renal failure type: unspecified Severe sepsis shock status: with septic shock Qualified Code(s): A41.51 - Sepsis due to Escherichia coli [E. coli]; R65.21 - Severe sepsis with septic shock; N17.9 - Acute kidney failure, unspecified Status: Acute - Allergies Allergies/Adverse Reactions: Allergies Allergy/AdvReac Type Severity Reaction Status Date / Time morphine Allergy Verified 08/06/20 13:53 rofecoxib [From Vioxx] Allergy Verified 08/06/20 13:53
[2021-04-18] MEDS: SNACK - Diabetic Appropriate PO SCH (20:15)
[2021-04-18] MEDS: MOBIC TAB 15 MG PO SCH (21:30)
[2021-04-18] MEDS: ARICEPT TAB 5 MG PO SCH (21:30)
[2021-04-18] MEDS: LIPITOR TAB 10 MG PO SCH (21:30)
[2021-04-19] MEDS: NS 1,000 ML IV 1,000 ML with SODIUM BICARBONATE 8.4% INJ ADULT 100 ML IV SCH ×6 (05:24→21:34)
[2021-04-19 05:43] LABS: ABG ALLEN TEST POS; ABG BASE EXCESS -5.8 mmol/L (-2.0-2.0); ABG HCO3 18.5 mmol/L (22-26)
[2021-04-19 06:12] LABS: BASOPHILS % (AUTO) 0.2 % (0.2-1.0); EOSINOPHILS # (AUTO) 0.6 x10^3/uL (0.0-0.2); EOSINOPHILS % (AUTO) 3.3 % (0.9-2.9); HEMATOCRIT 25.2 % (36.0-47.0); HEMOGLOBIN 8.2 g/dL (12.0-16.0); LYMPHOCYTES # (AUTO) 1.3 X10^3/uL (1.3-2.9); LYMPHOCYTES % (AUTO) 7.1 % (21.0-51.0); MEAN CORPUSCULAR HEMOGLOBIN 27.9 pg (27.0-34.0); MEAN CORPUSCULAR HGB CONC 32.5 g/dL (33.0-35.0); MEAN CORPUSCULAR VOLUME 85.6 fL (80.0-100.0); MEAN PLATELET VOLUME 7.2 fL (7.4-11.0); MONOCYTES # (AUTO) 1.8 x10^3/uL (0.3-0.8); MONOCYTES % (AUTO) 9.9 % (0.0-13.0); NEUTROPHILS # (AUTO) 14.5 x10^3/uL (2.2-4.8); NEUTROPHILS % (AUTO) 79.5 % (42.0-75.0); PLATELET COUNT 563 X10^3/uL (150.0-450.0); RED BLOOD COUNT 2.95 X10^6/uL (3.5-5.4); RED CELL DISTRIBUTION WIDTH 16.2 % (11.6-16.5); WHITE BLOOD COUNT 18.2 X10^3/uL (3.6-10.0)
[2021-04-19 06:30] LABS: ALANINE AMINOTRANSFERASE 52 Units/L (12-78); ALBUMIN 2.1 g/dL (3.4-5.0); ALKALINE PHOSPHATASE 57 Units/L (46-116); ASPARTATE AMINO TRANSFERASE 50 Units/L (15-37); BLOOD UREA NITROGEN 54 mg/dL (7-18); CALCIUM 8.4 mg/dL (8.5-10.1); CARBON DIOXIDE 19.8 mmol/L (21-32); COR CA(FOR HYPOALB) 9.9 mg/dL (8.5-10.1); CREATININE 2.37 mg/dL (0.55-1.02); SODIUM 149 mmol/L (136-145); TOTAL PROTEIN 5.5 g/dL (6.4-8.2); eGFR NON BLACK RACES 21 (>60)
[2021-04-19 06:33] LABS: CHLORIDE 119 mmol/L (98-107)
[2021-04-19 07:05] LABS: BAND NEUTROPHILS % 5 % (0-10); PLATELET MORPHOLOGY COMMENT NORMAL (NORMAL)
[2021-04-19] MEDS: DUONEB 0.5 MG/3 MG (3 mL) NEB SCH ×4 (08:44→20:46)
[2021-04-19] MEDS: FORTAZ or TAZICEF VIAL INJ 1 G in NS 100 ML IV + SPIKE MINIBAG* 100 ML IV SCH (09:19)
[2021-04-19] MEDS: CELEXA PO SCH (09:19)
[2021-04-19] MEDS: ISOSORBIDE MONONITRATE ER 24-HR PO SCH (09:19)
[2021-04-19] MEDS: MOBIC TAB 15 MG PO SCH ×2 (09:19→21:10)
[2021-04-19] MEDS: MICRO K EXTEN CAP 10 MEQ PO SCH ×2 (09:20→21:10)
[2021-04-19] MEDS: SYNTHROID 25 mcg TAB PO SCH (09:20)
[2021-04-19] MEDS: ZAROXOLYN PO SCH (09:20)
[2021-04-19] MEDS: PROTONIX TAB 40 MG PO SCH ×2 (09:20→21:10)
[2021-04-19] MEDS: ELIQUIS PO SCH ×2 (09:20→21:10)
[2021-04-19] MEDS: CARDIZEM CD 240 MG 24-HR PO SCH (09:20)
[2021-04-19] MEDS: TOPROL XL PO SCH (09:21)
[2021-04-19] MEDS: COZAAR PO SCH (09:21)
[2021-04-19] MEDS: ASPIRIN EC 81 MG PO SCH (09:21)
[2021-04-19] MEDS: MEGACE PO SCH ×2 (09:21→21:10)
[2021-04-19] MEDS: PERCOCET TAB 5/325 MG PO SCH ×4 (09:21→21:10)
[2021-04-19] MEDS: COLACE CAP 100 MG PO SCH ×2 (09:21→21:10)
[2021-04-19] MEDS: TOPAMAX PO SCH ×2 (09:21→21:10)
[2021-04-19] MEDS ORDERED: PHARMACY COMMENT IV ONE (13:00)
[2021-04-19] MEDS ORDERED: VANCOMYCIN IV *PREMIX 1.25 G/250 ML BAG 1.25 G/250 ML PIGGYBACK IV NR (15:00)
[2021-04-19] MEDS: SNACK - Diabetic Appropriate PO SCH (21:10)
[2021-04-19] MEDS: ARICEPT TAB 5 MG PO SCH (21:10)
[2021-04-19] MEDS: LIPITOR TAB 10 MG PO SCH (21:10)
[2021-04-20] MEDS: NS 1,000 ML IV 1,000 ML with SODIUM BICARBONATE 8.4% INJ ADULT 100 ML IV SCH ×2 (05:51)
[2021-04-20 06:43] LABS: BASOPHILS # (AUTO) 0.1 X10^3/uL (0.0-0.1); BASOPHILS % (AUTO) 0.4 % (0.2-1.0); EOSINOPHILS # (AUTO) 0.4 x10^3/uL (0.0-0.2); EOSINOPHILS % (AUTO) 2.7 % (0.9-2.9); HEMATOCRIT 25.7 % (36.0-47.0); HEMOGLOBIN 8.5 g/dL (12.0-16.0); LYMPHOCYTES # (AUTO) 1.6 X10^3/uL (1.3-2.9); LYMPHOCYTES % (AUTO) 9.4 % (21.0-51.0); MEAN CORPUSCULAR HEMOGLOBIN 28.1 pg (27.0-34.0); MEAN CORPUSCULAR VOLUME 85.3 fL (80.0-100.0); MEAN PLATELET VOLUME 7.4 fL (7.4-11.0); MONOCYTES # (AUTO) 2.2 x10^3/uL (0.3-0.8); MONOCYTES % (AUTO) 12.9 % (0.0-13.0); NEUTROPHILS # (AUTO) 12.6 x10^3/uL (2.2-4.8); NEUTROPHILS % (AUTO) 74.6 % (42.0-75.0); PLATELET COUNT 587 X10^3/uL (150.0-450.0); RED BLOOD COUNT 3.02 X10^6/uL (3.5-5.4); RED CELL DISTRIBUTION WIDTH 16.6 % (11.6-16.5); WHITE BLOOD COUNT 16.9 X10^3/uL (3.6-10.0)
[2021-04-20 07:12] LABS: BAND NEUTROPHILS % 6 % (0-10); METAMYELOCYTES % 2; PLATELET MORPHOLOGY COMMENT NORMAL (NORMAL)
[2021-04-20 07:20] LABS: ALANINE AMINOTRANSFERASE 51 Units/L (12-78); ALBUMIN 2.2 g/dL (3.4-5.0); ALKALINE PHOSPHATASE 74 Units/L (46-116); ASPARTATE AMINO TRANSFERASE 34 Units/L (15-37); BLOOD UREA NITROGEN 53 mg/dL (7-18); CALCIUM 8.9 mg/dL (8.5-10.1); CARBON DIOXIDE 19.4 mmol/L (21-32); COR CA(FOR HYPOALB) 10.3 mg/dL (8.5-10.1); CREATININE 1.78 mg/dL (0.55-1.02); TOTAL PROTEIN 6.1 g/dL (6.4-8.2); eGFR NON BLACK RACES 30 (>60)
[2021-04-20 07:28] LABS: CHLORIDE 123 mmol/L (98-107); SODIUM 155 mmol/L (136-145)
[2021-04-20] MEDS: DUONEB 0.5 MG/3 MG (3 mL) NEB SCH ×4 (08:40→20:16)
[2021-04-20] MEDS ORDERED: NS 1/2 1,000 ML IV 1,000 ML IV ONE ×2 (09:45→22:38)
[2021-04-20] MEDS: COZAAR PO SCH (09:52)
[2021-04-20] MEDS: CARDIZEM CD 240 MG 24-HR PO SCH (09:52)
[2021-04-20] MEDS: ELIQUIS PO SCH ×2 (09:52→21:33)
[2021-04-20] MEDS: PERCOCET TAB 5/325 MG PO SCH ×4 (09:53→21:34)
[2021-04-20] MEDS: TOPROL XL PO SCH (09:53)
[2021-04-20] MEDS: FORTAZ or TAZICEF VIAL INJ 1 G in NS 100 ML IV + SPIKE MINIBAG* 100 ML IV SCH (09:53)
[2021-04-20] MEDS: NS 1/2 1,000 ML IV 1,000 ML IV SCH ×2 (09:53→22:00)
[2021-04-20] MEDS ORDERED: ISOPTO ATROPINE SL PRN (10:54)
[2021-04-20] MEDS: MICRO K EXTEN CAP 10 MEQ PO SCH ×2 (11:16→21:34)
[2021-04-20] MEDS: COLACE CAP 100 MG PO SCH ×2 (11:16→21:33)
[2021-04-20] MEDS: MEGACE PO SCH ×2 (11:16→21:33)
[2021-04-20] MEDS: ASPIRIN EC 81 MG PO SCH (11:16)
[2021-04-20] MEDS: CELEXA PO SCH (11:16)
[2021-04-20] MEDS: ISOSORBIDE MONONITRATE ER 24-HR PO SCH (11:16)
[2021-04-20] MEDS: SYNTHROID 25 mcg TAB PO SCH (11:17)
[2021-04-20] MEDS: ZAROXOLYN PO SCH (11:17)
[2021-04-20] MEDS: MOBIC TAB 15 MG PO SCH ×2 (11:17→21:34)
[2021-04-20] MEDS: TOPAMAX PO SCH ×2 (11:17→21:34)
[2021-04-20] MEDS: PROTONIX TAB 40 MG PO SCH ×2 (11:17→21:34)
--- NOTE | 2021-04-20 12:43 | PCM.PROG ---
Progress Note - Progress Note for Day of Date of Exam: 04/19/21 - Subjective Subjective: WAS ADMITTED FOR TREATMENT OF SEPSIS DUE TO UTI. TODAY, SHE IS LYING IN BED WITH EYES CLOSED ON MORNING ROUNDS. SHE OPENS EYES TO VERBAL STIMULI AND RESPONDS VERBALLY. PATIENTS DAUGTER REPORTS THAT SHE APPEARED TO BE UNCOMFORTABLE AND IN PAIN THROUGHOUT THE NIGHT. SHE HAS HAD DECREASED APPETITE. STAFF ALSO REPORTS THAT SHE HAS DIFFICULTY SWALLOWING. SHE HAS HAD MINIMAL URINARY OUTPUT. ON EXAMINATION, HEART IS REGULAR IN RATE AND RHYTHM. BILATERAL LUNGS NOTED WITH DIMINISHED LUNG SOUNDS THROUGHOUT. ABDOMEN IS ROUND, SOFT, AND NON-TENDER WITH NORMAL BOWEL SOUNDS NOTED IN ALL QUADRANTS. HER VITALS THIS MORNING ARE: 98.5-100-14-96%-167/79. LABS WERE OBTAINED. ABNORMAL LAB VALUES INCLUDE THE FOLLOWING: WBC WBC 18.2, RBC 2.95, HGB 8.2, HCT 25.2, PLT COUNT 563, SODIUM 149, CHLORIDE 119, CARBON DIOXIDE 19.8, BUN 54, CREATININE 2.37, CALCIUM 8.4, TOTAL BILI 0.10, AST 50, TOTAL PROTEIN 5.5, ALBUMIN 2.4. ABG REVEALED: PH 7.370, PC02 32, P02 72, HC03 18.5, 02 SAT 94, A-A GRADIENT 88, FI02 28.0. BLOOD CULTURES ARE PENDING. SHE IS CURRENTLY RECEIVING NORMAL SALINE WITH 2 AMPS SOD IUM BICARB AT 125ML/HR, VANCOMYCIN 1G IV DAILY, FORTAZ 1G IV DAILY, DUONEBS QID, OTBS ACHS, HUMULIN R SLIDING SCALE, FENTANYL 25MCG/HR PATCH, AND HER HOME MEDICATIONS WERE RESUMED. OTHERWISE, WE PLAN TO FOLLOW UP WITH AM LABS AND CONTINUE TO MONITOR. TIME SPENT ON CLINICAL ASSESSMENT, REVIEWING LABS AND IMAGING, DECISION MAKING, AND DOCUMENTATION GREATER THAN 45 MINUTES. - Past Medical Family Social History Past Med/Fam/Surg Hx: No changes since H&P Allergies: Allergies morphine Allergy (Verified 08/06/20 13:53) rofecoxib [From Vioxx] Allergy (Verified 08/06/20 13:53) - Review of Systems ROS: No change since H&P - Vital Signs and I&O's Vital Signs: Temperature 99.5 F Pulse Rate [Left Radial] 128 Pulse Rate 118 Respiratory Rate 22 Blood Pressure [Left Arm] 166/91 Blood Pressure 123/62 O2 Sat by Pulse Oximetry 98 Intake and Output: Intake & Output 04/18/21 04/19/21 04/20/21 04/21/21 11:59 11:59 11:59 11:59 Intake Total 100 / 100 1400 / 1400 Output Total 25 / 0 / 0 Balance 75 / 75 1400 / 1400 - Physical Exam Oriented: Person Eyes: Normal Ear: Normal Nose: Normal Throat: Normal Respiratory: Generalized, Diminished Cardiovascular: Normal : Normal Auscultation: Bowel Sounds: Normal Palpation: Normal Tenderness: Normal Skin: Normal Musculoskeletal: Normal Psychiatric: Normal Mood Description: Calm Affect: Normal Speech Pattern: Delayed - Laboratory and Diagnostics Result Diagrams: 04/20/21 05:27 04/20/21 05:27 Labs: 04/18/21 03:35 Blood Blood Culture - Preliminary 04/18/21 02:35 Blood Blood Culture - Preliminary Laboratory WBC 16.9 X10^3/uL (3.6-10.0) H 04/20/21 05:27 RBC 3.02 X10^6/uL (3.5-5.4) L 04/20/21 05:27 Hgb 8.5 g/dL (12.0-16.0) L 04/20/21 05:27 Hct 25.7 % (36.0-47.0) L 04/20/21 05:27 MCV 85.3 fL (80.0-100.0) 04/20/21 05:27 MCH 28.1 pg (27.0-34.0) 04/20/21 05:27 MCHC 33.0 g/dL (33.0-35.0) 04/20/21 05:27 RDW 16.6 % (11.6-16.5) H 04/20/21 05:27 Plt Count 587 X10^3/uL (150.0-450.0) H 04/20/21 05:27 Plt Count Comment Increased (ADEQUATE) A 04/20/21 05:27 MPV 7.4 fL (7.4-11.0) 04/20/21 05:27 Neut % (Auto) 74.6 % (42.0-75.0) 04/20/21 05:27 Lymph % (Auto) 9.4 % (21.0-51.0) L 04/20/21 05:27 Richardson % (Auto) 12.9 % (0.0-13.0) 04/20/21 05:27 Eos % (Auto) 2.7 % (0.9-2.9) 04/20/21 05:27 Baso % (Auto) 0.4 % (0.2-1.0) 04/20/21 05:27 Neut # (Auto) 12.6 x10^3/uL (2.2-4.8) H 04/20/21 05:27 Lymph # (Auto) 1.6 X10^3/uL (1.3-2.9) 04/20/21 05:27 Richardson # (Auto) 2.2 x10^3/uL (0.3-0.8) H 04/20/21 05:27 Eos # (Auto) 0.4 x10^3/uL (0.0-0.2) H 04/20/21 05:27 Baso # (Auto) 0.1 X10^3/uL (0.0-0.1) 04/20/21 05:27 Absolute Nucleated RBC 0.3 /100WBC 04/20/21 05:27 Total Counted 100 04/20/21 05:27 Neutrophils % (Manual) 64 % (39-76) 04/20/21 05:27 Band Neutrophils % 6 % (0-10) 04/20/21 05:27 Lymphocytes % (Manual) 18 % (13-43) 04/20/21 05:27 Monocytes % (Manual) 8 % (4-9) 04/20/21 05:27 Eosinophils % (Manual) 2 % (0-6) 04/20/21 05:27 Metamyelocytes % 2 04/20/21 05:27 Plt Morphology Comment Normal (NORMAL) 04/20/21 05:27 RBC Morphology Normal (NORMAL) 04/20/21 05:27 PT 21.2 SECONDS (11.8-14.3) 04/18/21 03:55 INR Target Range - 04/18/21 03:55 INR 1.94 (0.8-1.3) H 04/18/21 03:55 APTT 38.8 SECONDS (22.9-36.5) H 04/18/21 03:55 PTT Comment - 04/18/21 03:55 Sample Site Rr 04/19/21 05:00 ABG pH 7.370 (7.35-7.45) 04/19/21 05:00 ABG pCO2 32.0 mmHg (35.0-45.0) L 04/19/21 05:00 ABG pO2 72.0 mmHg (80.0-100.0) L 04/19/21 05:00 ABG HCO3 18.5 mmol/L (22-26) L 04/19/21 05:00 ABG O2 Saturation 94.0 % (90-100) 04/19/21 05:00 ABG Base Excess -5.8 mmol/L (-2.0-2.0) L 04/19/21 05:00 Lui Test Pos 04/19/21 05:00 A-a Gradient 88.0 mmHg 04/19/21 05:00 FiO2 28.0 04/19/21 05:00 Blood Gas Comments Tal well sw 04/19/21 05:00 Sodium 155 mmol/L (136-145) H* 04/20/21 05:27 Corrected Sodium TNP 04/20/21 05:27 Potassium 4.7 mmol/L (3.5-5.1) 04/20/21 05:27 Chloride 123 mmol/L (98-107) H* 04/20/21 05:27 Carbon Dioxide 19.4 mmol/L (21-32) L 04/20/21 05:27 BUN 53 mg/dL (7-18) H 04/20/21 05:27 Creatinine 1.78 mg/dL (0.55-1.02) H 04/20/21 05:27 Est GFR (MDRD) Af Amer 36 (>60) L 04/20/21 05:27 Est GFR (MDRD) Non-Af 30 (>60) L 04/20/21 05:27 Glucose 70 mg/dL (65-99) 04/20/21 05:27 POC Glucose (mg/dL) 85 mg/dL (65-99) 04/20/21 12:07 Lactic Acid 1.2 mmol/L (0.4-2.0) 04/18/21 18:16 Calcium 8.9 mg/dL (8.5-10.1) 04/20/21 05:27 Corrected Calcium 10.3 mg/dL (8.5-10.1) H 04/20/21 05:27 Total Bilirubin 0.20 mg/dL (0.2-1.0) 04/20/21 05:27 AST 34 Units/L (15-37) 04/20/21 05:27 ALT 51 Units/L (12-78) 04/20/21 05:27 Alkaline Phosphatase 74 Units/L (46-116) 04/20/21 05:27 Creatine Kinase 34 Units/L (26-192) 04/18/21 01:36 CK-MB (CK-2) < 1.0 ng/mL (0-4.0) 04/18/21 01:36 CK/CKMB % Calc 2.9 % (<4) 04/18/21 01:36 Troponin I < 0.02 ng/mL (0-1.5) 04/18/21 01:36 Total Protein 6.1 g/dL (6.4-8.2) L 04/20/21 05:27 Albumin 2.2 g/dL (3.4-5.0) L 04/20/21 05:27 Globulin 3.9 g/dL (2.5-4.5) 04/20/21 05:27 Albumin/Globulin Ratio 0.6 Ratio (1.1-2.1) L 04/20/21 05:27 Random Vancomycin 13.8 ug/mL 04/19/21 13:56 SARS-CoV-2 (PCR) Negative (NEGATIVE) 04/18/21 02:21 Influenza Type A (PCR) Negative (NEGATIVE) 04/18/21 02:21 Influenza Type B (PCR) Negative (NEGATIVE) 04/18/21 02:21 RSV (PCR) Negative (NEGATIVE) 04/18/21 02:21 - Plan (1) UTI (urinary tract infection) Status: Acute Qualifiers: Urinary tract infection type: acute cystitis Hematuria presence: with hematuria Qualified Code(s): N30.01 - Acute cystitis with hematuria Plan: NORMAL SALINE WITH 2 AMPS SODIUM BICARB AT 125ML/HR, VANCOMYCIN 1G IV DAILY, FORTAZ 1G IV DAILY, DUONEBS QID, FENTANYL 25MCG/HR PATCH, OTBS ACHS, HUMULIN R SLIDING SCALE, AND HER HOME MEDICATIONS WERE RESUMED. (2) Sepsis Status: Acute Qualifiers: Sepsis type: Escherichia coli Sepsis acute organ dysfunction status: with acute organ dysfunction Severe sepsis acute organ dysfunction type: acute renal failure Acute renal failure type: unspecified Severe sepsis shock status: with septic shock Qualified Code(s): A41.51 - Sepsis due to Escherichia coli [E. coli]; R65.21 - Severe sepsis with septic shock; N17.9 - Acute kidney failure, unspecified
--- NOTE | 2021-04-20 12:57 | PCM.PROG ---
Progress Note - Progress Note for Day of Date of Exam: 04/20/21 - Subjective Subjective: WAS ADMITTED FOR TREATMENT OF SEPSIS DUE TO UTI. TODAY, SHE IS LYING IN BED WITH EYES CLOSED ON MORNING ROUNDS. SHE OPENS EYES AND RESPONDS TO VERBAL STIMULI. PATIENTS DAUGTER REPORTS THAT SHE CONTINUED TO MOAN IF SHE WERE IN PAIN THROUGHOUT THE NIGHT. SHE HAS HAD DECREASED APPETITE. STAFF ALSO REPORTS THAT SHE HAS DIFFICULTY SWALLOWING. SHE HAS HAD MINIMAL URINARY OUTPUT. ON EXAMINATION, SHE IS TACHYCARDIC WITH IRREGULAR RHYTHM. BILATERAL LUNGS NOTED WITH RHONCHI THROUGHOUT. ABDOMEN IS ROUND, SOFT, AND NON- TENDER WITH NORMAL BOWEL SOUNDS NOTED IN ALL QUADRANTS. HER VITALS THIS MORNING ARE: 99.9-272-47-100%-166/91. LABS WERE OBTAINED. ABNORMAL LAB VALUES INCLUDE THE FOLLOWING: WBC 16.9, RBC 3.02, HGB 8.5, HCT 25.7, PLT COUNT 587, SODIUM 155, CHLORIDE 123, CARBON DIOXIDE 19.4, BUN 53, CREATININE 1.78, TOTAL PROTEIN 6.1, ALBUMIN 2.2. BLOOD CULTURES ARE PENDING. SHE IS CURRENTLY RECEIVING NORMAL SALINE WITH 2 AMPS SODIUM BICARB AT 125ML/HR, VANCOMYCIN 1G IV DAILY, FORTAZ 1G IV DAILY, DUONEBS QID, OTBS ACHS, HUMULIN R SLIDING SCALE, FENTANYL 25MCG/HR PATCH, AND HER HOME MEDICATIONS WERE RESUMED. TODAY, WE WILL CHANGE IV FLUIDS TO 1/2NS AT 75 ML/HR. WE WILL INCREASE FENTANYL PATCH TO 50MCG/HR AND ADD ATROPINE DROPS PRN FOR SECRETIONS. OTHERWISE, WE WILL CONTINUE WITH CURRENT PLAN OF CARE. WE PLAN TO FOLLOW UP WITH AM LABS AND CONTINUE TO MONITOR. TIME SPENT ON C LINICAL ASSESSMENT, REVIEWING LABS AND IMAGING, DECISION MAKING, AND DOCUMENTATION GREATER THAN 45 MINUTES. - Past Medical Family Social History Past Med/Fam/Surg Hx: No changes since H&P Allergies: Allergies morphine Allergy (Verified 08/06/20 13:53) rofecoxib [From Vioxx] Allergy (Verified 08/06/20 13:53) - Review of Systems ROS: No change since H&P - Vital Signs and I&O's Vital Signs: Temperature 99.5 F Pulse Rate [Left Radial] 128 Pulse Rate 118 Respiratory Rate 22 Blood Pressure [Left Arm] 166/91 Blood Pressure 123/62 O2 Sat by Pulse Oximetry 98 Intake and Output: Intake & Output 04/18/21 04/19/21 04/20/21 04/21/21 11:59 11:59 11:59 11:59 Intake Total 100 / 100 1400 / 1400 Output Total 0 / 0 Balance 75 / 75 1400 / 1400 - Physical Exam Oriented: Person Eyes: Normal Ear: Normal Nose: Normal Throat: Normal Respiratory: Generalized, Diminished Cardiovascular: Normal : Normal Auscultation: Bowel Sounds: Normal Tenderness: Normal Skin: Normal Musculoskeletal: Normal Psychiatric: Normal Mood Description: Calm Affect: Normal Speech Pattern: Delayed - Laboratory and Diagnostics Result Diagrams: 04/20/21 05:27 04/20/21 05:27 Labs: 04/18/21 03:35 Blood Blood Culture - Preliminary 04/18/21 02:35 Blood Blood Culture - Preliminary Laboratory WBC 16.9 X10^3/uL (3.6-10.0) H 04/20/21 05:27 RBC 3.02 X10^6/uL (3.5-5.4) L 04/20/21 05:27 Hgb 8.5 g/dL (12.0-16.0) L 04/20/21 05:27 Hct 25.7 % (36.0-47.0) L 04/20/21 05:27 MCV 85.3 fL (80.0-100.0) 04/20/21 05:27 MCH 28.1 pg (27.0-34.0) 04/20/21 05:27 MCHC 33.0 g/dL (33.0-35.0) 04/20/21 05:27 RDW 16.6 % (11.6-16.5) H 04/20/21 05:27 Plt Count 587 X10^3/uL (150.0-450.0) H 04/20/21 05:27 Plt Count Comment Increased (ADEQUATE) A 04/20/21 05:27 MPV 7.4 fL (7.4-11.0) 04/20/21 05:27 Neut % (Auto) 74.6 % (42.0-75.0) 04/20/21 05:27 Lymph % (Auto) 9.4 % (21.0-51.0) L 04/20/21 05:27 Mccormick % (Auto) 12.9 % (0.0-13.0) 04/20/21 05:27 Eos % (Auto) 2.7 % (0.9-2.9) 04/20/21 05:27 Baso % (Auto) 0.4 % (0.2-1.0) 04/20/21 05:27 Neut # (Auto) 12.6 x10^3/uL (2.2-4.8) H 04/20/21 05:27 Lymph # (Auto) 1.6 X10^3/uL (1.3-2.9) 04/20/21 05:27 Mccormick # (Auto) 2.2 x10^3/uL (0.3-0.8) H 04/20/21 05:27 Eos # (Auto) 0.4 x10^3/uL (0.0-0.2) H 04/20/21 05:27 Baso # (Auto) 0.1 X10^3/uL (0.0-0.1) 04/20/21 05:27 Absolute Nucleated RBC 0.3 /100WBC 04/20/21 05:27 Total Counted 100 04/20/21 05:27 Neutrophils % (Manual) 64 % (39-76) 04/20/21 05:27 Band Neutrophils % 6 % (0-10) 04/20/21 05:27 Lymphocytes % (Manual) 18 % (13-43) 04/20/21 05:27 Monocytes % (Manual) 8 % (4-9) 04/20/21 05:27 Eosinophils % (Manual) 2 % (0-6) 04/20/21 05:27 Metamyelocytes % 2 04/20/21 05:27 Plt Morphology Comment Normal (NORMAL) 04/20/21 05:27 RBC Morphology Normal (NORMAL) 04/20/21 05:27 PT 21.2 SECONDS (11.8-14.3) 04/18/21 03:55 INR Target Range - 04/18/21 03:55 INR 1.94 (0.8-1.3) H 04/18/21 03:55 APTT 38.8 SECONDS (22.9-36.5) H 04/18/21 03:55 PTT Comment - 04/18/21 03:55 Sample Site Rr 04/19/21 05:00 ABG pH 7.370 (7.35-7.45) 04/19/21 05:00 ABG pCO2 32.0 mmHg (35.0-45.0) L 04/19/21 05:00 ABG pO2 72.0 mmHg (80.0-100.0) L 04/19/21 05:00 ABG HCO3 18.5 mmol/L (22-26) L 04/19/21 05:00 ABG O2 Saturation 94.0 % (90-100) 04/19/21 05:00 ABG Base Excess -5.8 mmol/L (-2.0-2.0) L 04/19/21 05:00 Lui Test Pos 04/19/21 05:00 A-a Gradient 88.0 mmHg 04/19/21 05:00 FiO2 28.0 04/19/21 05:00 Blood Gas Comments Tal well sw 04/19/21 05:00 Sodium 155 mmol/L (136-145) H* 04/20/21 05:27 Corrected Sodium TNP 04/20/21 05:27 Potassium 4.7 mmol/L (3.5-5.1) 04/20/21 05:27 Chloride 123 mmol/L (98-107) H* 04/20/21 05:27 Carbon Dioxide 19.4 mmol/L (21-32) L 04/20/21 05:27 BUN 53 mg/dL (7-18) H 04/20/21 05:27 Creatinine 1.78 mg/dL (0.55-1.02) H 04/20/21 05:27 Est GFR (MDRD) Af Amer 36 (>60) L 04/20/21 05:27 Est GFR (MDRD) Non-Af 30 (>60) L 04/20/21 05:27 Glucose 70 mg/dL (65-99) 04/20/21 05:27 POC Glucose (mg/dL) 85 mg/dL (65-99) 04/20/21 12:07 Lactic Acid 1.2 mmol/L (0.4-2.0) 04/18/21 18:16 Calcium 8.9 mg/dL (8.5-10.1) 04/20/21 05:27 Corrected Calcium 10.3 mg/dL (8.5-10.1) H 04/20/21 05:27 Total Bilirubin 0.20 mg/dL (0.2-1.0) 04/20/21 05:27 AST 34 Units/L (15-37) 04/20/21 05:27 ALT 51 Units/L (12-78) 04/20/21 05:27 Alkaline Phosphatase 74 Units/L (46-116) 04/20/21 05:27 Creatine Kinase 34 Units/L (26-192) 04/18/21 01:36 CK-MB (CK-2) < 1.0 ng/mL (0-4.0) 04/18/21 01:36 CK/CKMB % Calc 2.9 % (<4) 04/18/21 01:36 Troponin I < 0.02 ng/mL (0-1.5) 04/18/21 01:36 Total Protein 6.1 g/dL (6.4-8.2) L 04/20/21 05:27 Albumin 2.2 g/dL (3.4-5.0) L 04/20/21 05:27 Globulin 3.9 g/dL (2.5-4.5) 04/20/21 05:27 Albumin/Globulin Ratio 0.6 Ratio (1.1-2.1) L 04/20/21 05:27 Random Vancomycin 13.8 ug/mL 04/19/21 13:56 SARS-CoV-2 (PCR) Negative (NEGATIVE) 04/18/21 02:21 Influenza Type A (PCR) Negative (NEGATIVE) 04/18/21 02:21 Influenza Type B (PCR) Negative (NEGATIVE) 04/18/21 02:21 RSV (PCR) Negative (NEGATIVE) 04/18/21 02:21 - Plan (1) UTI (urinary tract infection) Status: Acute Qualifiers: Urinary tract infection type: acute cystitis Hematuria presence: with he maturia Qualified Code(s): N30.01 - Acute cystitis with hematuria Plan: 1/2NS AT 75 ML/HR, VANCOMYCIN 1G IV DAILY, FORTAZ 1G IV DAILY, DUONEBS QI D, FENTANYL 50MCG/HR PATCH, OTBS ACHS, HUMULIN R SLIDING SCALE, AND HER HOME MEDICATIONS WERE RESUMED. (2) Sepsis Status: Acute Qualifiers: Sepsis type: Escherichia coli Sepsis acute organ dysfunction status: with acute organ dysfunction Severe sepsis acute organ dysfunction type: acute renal failure Acute renal failure type: unspecified Severe sepsis shock status: with septic shock Qualified Code(s): A41.51 - Sepsis due to Escherichia coli [E. coli]; R65.21 - Severe sepsis with septic shock; N17.9 - Acute kidney failure, unspecified
[2021-04-20] MEDS ORDERED: PHARMACY COMMENT IV NR (14:30)
[2021-04-20] MEDS: ARICEPT TAB 5 MG PO SCH (21:32)
[2021-04-20] MEDS: LIPITOR TAB 10 MG PO SCH (21:33)
[2021-04-21] MEDS: SNACK - Diabetic Appropriate PO SCH ×2 (06:20→20:15)
[2021-04-21 06:25] LABS: BASOPHILS # (AUTO) 0.1 X10^3/uL (0.0-0.1); BASOPHILS % (AUTO) 0.3 % (0.2-1.0); EOSINOPHILS # (AUTO) 0.5 x10^3/uL (0.0-0.2); EOSINOPHILS % (AUTO) 2.5 % (0.9-2.9); HEMATOCRIT 25.5 % (36.0-47.0); HEMOGLOBIN 8.4 g/dL (12.0-16.0); LYMPHOCYTES # (AUTO) 2.2 X10^3/uL (1.3-2.9); LYMPHOCYTES % (AUTO) 10.9 % (21.0-51.0); MEAN CORPUSCULAR HEMOGLOBIN 28.1 pg (27.0-34.0); MEAN CORPUSCULAR HGB CONC 32.8 g/dL (33.0-35.0); MEAN CORPUSCULAR VOLUME 85.5 fL (80.0-100.0); MEAN PLATELET VOLUME 7.3 fL (7.4-11.0); MONOCYTES # (AUTO) 2.1 x10^3/uL (0.3-0.8); MONOCYTES % (AUTO) 10.2 % (0.0-13.0); NEUTROPHILS # (AUTO) 15.6 x10^3/uL (2.2-4.8); NEUTROPHILS % (AUTO) 76.1 % (42.0-75.0); PLATELET COUNT 524 X10^3/uL (150.0-450.0); RED BLOOD COUNT 2.98 X10^6/uL (3.5-5.4); RED CELL DISTRIBUTION WIDTH 16.7 % (11.6-16.5); WHITE BLOOD COUNT 20.4 X10^3/uL (3.6-10.0)
[2021-04-21 06:42] LABS: ALANINE AMINOTRANSFERASE 39 Units/L (12-78); ALBUMIN 2.1 g/dL (3.4-5.0); ALKALINE PHOSPHATASE 80 Units/L (46-116); ASPARTATE AMINO TRANSFERASE 18 Units/L (15-37); BLOOD UREA NITROGEN 53 mg/dL (7-18); CARBON DIOXIDE 17.9 mmol/L (21-32); COR CA(FOR HYPOALB) 10.5 mg/dL (8.5-10.1); CREATININE 1.37 mg/dL (0.55-1.02); eGFR NON BLACK RACES 40 (>60)
[2021-04-21 06:46] LABS: SODIUM 153 mmol/L (136-145)
[2021-04-21 06:47] LABS: CHLORIDE 124 mmol/L (98-107)
[2021-04-21 07:24] LABS: BAND NEUTROPHILS % 7 % (0-10); PLATELET MORPHOLOGY COMMENT NORMAL (NORMAL)
[2021-04-21 07:25] LABS: ANISOCYTOSIS SLIGHT
[2021-04-21] MEDS: DUONEB 0.5 MG/3 MG (3 mL) NEB SCH ×4 (08:45→20:25)
[2021-04-21] MEDS ORDERED: VANCOMYCIN IV *PREMIX 1 G/200 ML BAG 1 G/200 ML PIGGYBACK IV SCH ×2 (09:00→12:00)
[2021-04-21] MEDS: FORTAZ or TAZICEF VIAL INJ 1 G in NS 100 ML IV + SPIKE MINIBAG* 100 ML IV SCH (09:48)
[2021-04-21] MEDS ORDERED: DURAGESIC 100 mcg/HR PATCH TD SCH (10:00)
[2021-04-21] MEDS: NS 1/2 1,000 ML IV 1,000 ML IV SCH ×3 (11:09→14:04)
[2021-04-21] MEDS ORDERED: NS 1/2 1,000 ML IV 1,000 ML IV ONE (12:24)
--- NOTE | 2021-04-21 13:09 | PCM.PROG ---
Progress Note - Progress Note for Day of Date of Exam: 04/21/21 - Subjective Subjective: WAS ADMITTED FOR TREATMENT OF SEPSIS DUE TO UTI. TODAY, SHE IS LYING IN BED WITH EYES CLOSED ON MORNING ROUNDS. SHE OPENS EYES TO VERBAL STIMULI. PATIENTS DAUGTER REPORTS THAT SHE CONTINUED TO MOAN IF SHE WERE IN PAIN THROUGHOUT THE NIGHT. SHE HAS HAD DECREASED ORAL INTAKE. STAFF ALSO REPORTS THAT SHE HAS DIFFICULTY SWALLOWING ORAL MEDICATIONS. SHE HAS NOT HAD ANY MEANINGFUL URINARY OUTPUT YESTERDAY OR THROUGHOUT THE NIGHT. ON EXAMINATION, SHE IS TACHYCARDIC WITH IRREGULAR RHYTHM. BILATERAL LUNGS NOTED WITH RHONCHI THROUGHOUT. ABDOMEN IS ROUND, SOFT, AND NON-TENDER WITH NORMAL BOWEL SOUNDS NOTED IN ALL QUADRANTS. HER VITALS THIS MORNING ARE: 98.5-108-22-96%-128/77. LABS WERE OBTAINED. ABNORMAL LAB VALUES INCLUDE THE FOLLOWING: WBC 20.4, RBC 2.98, HGB 8.4, HCT 25.5, PLT COUNT 524, SODIUM 153, CHLORIDE 124, CARBON DIOXIDE 17.9, BUN 53, CREATININE 1.37, TOTAL PROTEIN 6.0, ALBUMIN 2.1. BLOOD CULTURES ARE PENDING. SHE IS CURRENTLY RECEIVING NS AT 75 ML/HR, VANCOMYCIN 1G IV DAILY, FORTAZ 1G IV DAILY, DUONEBS QID, OTBS ACHS, HUMULIN R SLIDING SCALE, FENTANYL 50MCG/HR PATCH, ATROPINE DROPS FOR SECRETIONS, AND HER HOME MEDICATIONS WERE RESUMED. TODAY, WE WILL CHANGE IV FLUIDS TO 1/2NS AT 75 ML/HR. WE WILL INCREASE FENTANYL PATCH TO 100MCG/HR TODAY. WE WILL HOLD HER ORAL MEDICATIONS DUE TO PATIENT BEING UNABLE TO SWALLOW WITHOUT DIFFICULTY. OTHERWISE, WE WILL CONTINUE WITH IV FLUIDS AND IV ANTIBIOTICS. WE PLAN TO FOLLOW UP WITH AM LABS AND CONTINUE TO MONITOR. TIME SPENT ON CLINICAL ASSESSMENT, REVIEWING LABS AND IMAGING, DECISION MAKING, AND DOCUMENTATION GREATER THAN 45 MINUTES. - Past Medical Family Social History Past Med/Fam/Surg Hx: No changes since H&P Allergies: Allergies morphine Allergy (Verified 08/06/20 13:53) rofecoxib [From Vioxx] Allergy (Verified 08/06/20 13:53) - Review of Systems ROS: No change since H&P - Vital Signs and I&O's Vital Signs: Temperature 98.5 F Pulse Rate [Left Radial] 92 Pulse Rate 77 Respiratory Rate 22 Blood Pressure [Left Arm] 128/77 Blood Pressure 123/62 O2 Sat by Pulse Oximetry 99 Intake and Output: Intake & Output 04/19/21 04/20/21 04/21/21 04/22/21 11:59 11:59 11:59 11:59 Intake Total 100 / 100 1400 / 1400 358 / 358 Output Total 25 / 25 0 / 0 0 / 0 Balance 75 / 75 1400 / 1400 358 / 358 - Physical Exam Oriented: Unable to test Eyes: Normal Ear: Normal Nose: Normal Throat: Normal Respiratory: Generalized, Diminished Cardiovascular: Tachycardia, Irregular : Normal Auscultation: Bowel Sounds: Normal Palpation: Normal Tenderness: Normal Skin: Normal Musculoskeletal: Normal Psychiatric: Normal Mood Description: Calm Affect: Normal Speech Pattern: Delayed - Laboratory and Diagnostics Result Diagrams: 04/21/21 05:58 04/21/21 05:58 Labs: 04/18/21 03:35 Blood Blood Culture - Preliminary 04/18/21 02:35 Blood Blood Culture - Preliminary Laboratory WBC 20.4 X10^3/uL (3.6-10.0) H 04/21/21 05:58 RBC 2.98 X10^6/uL (3.5-5.4) L 04/21/21 05:58 Hgb 8.4 g/dL (12.0-16.0) L 04/21/21 05:58 Hct 25.5 % (36.0-47.0) L 04/21/21 05:58 MCV 85.5 fL (80.0-100.0) 04/21/21 05:58 MCH 28.1 pg (27.0-34.0) 04/21/21 05:58 MCHC 32.8 g/dL (33.0-35.0) L 04/21/21 05:58 RDW 16.7 % (11.6-16.5) H 04/21/21 05:58 Plt Count 524 X10^3/uL (150.0-450.0) H 04/21/21 05:58 Plt Count Comment Increased (ADEQUATE) A 04/21/21 05:58 MPV 7.3 fL (7.4-11.0) L 04/21/21 05:58 Neut % (Auto) 76.1 % (42.0-75.0) H 04/21/21 05:58 Lymph % (Auto) 10.9 % (21.0-51.0) L 04/21/21 05:58 [place] % (Auto) 10.2 % (0.0-13.0) 04/21/21 05:58 Eos % (Auto) 2.5 % (0.9-2.9) 04/21/21 05:58 Baso % (Auto) 0.3 % (0.2-1.0) 04/21/21 05:58 Neut # (Auto) 15.6 x10^3/uL (2.2-4.8) H 04/21/21 05:58 Lymph # (Auto) 2.2 X10^3/uL (1.3-2.9) 04/21/21 05:58 [place] # (Auto) 2.1 x10^3/uL (0.3-0.8) H 04/21/21 05:58 Eos # (Auto) 0.5 x10^3/uL (0.0-0.2) H 04/21/21 05:58 Baso # (Auto) 0.1 X10^3/uL (0.0-0.1) 04/21/21 05:58 Absolute Nucleated RBC 0.0 /100WBC 04/21/21 05:58 Total Counted 100 04/21/21 05:58 Neutrophils % (Manual) 66 % (39-76) 04/21/21 05:58 Band Neutrophils % 7 % (0-10) 04/21/21 05:58 Lymphocytes % (Manual) 17 % (13-43) 04/21/21 05:58 Monocytes % (Manual) 8 % (4-9) 04/21/21 05:58 Eosinophils % (Manual) 2 % (0-6) 04/21/21 05:58 Metamyelocytes % 2 04/20/21 05:27 Plt Morphology Comment Normal (NORMAL) 04/21/21 05:58 RBC Morphology Abnormal (NORMAL) A 04/21/21 05:58 Anisocytosis Slight A 04/21/21 05:58 PT 21.2 SECONDS (11.8-14.3) 04/18/21 03:55 INR Target Range - 04/18/21 03:55 INR 1.94 (0.8-1.3) H 04/18/21 03:55 APTT 38.8 SECONDS (22.9-36.5) H 04/18/21 03:55 PTT Comment - 04/18/21 03:55 Sample Site Rr 04/19/21 05:00 ABG pH 7.370 (7.35-7.45) 04/19/21 05:00 ABG pCO2 32.0 mmHg (35.0-45.0) L 04/19/21 05:00 ABG pO2 72.0 mmHg (80.0-100.0) L 04/19/21 05:00 ABG HCO3 18.5 mmol/L (22-26) L 04/19/21 05:00 ABG O2 Saturation 94.0 % (90-100) 04/19/21 05:00 ABG Base Excess -5.8 mmol/L (-2.0-2.0) L 04/19/21 05:00 Lui Test Pos 04/19/21 05:00 A-a Gradient 88.0 mmHg 04/19/21 05:00 FiO2 28.0 04/19/21 05:00 Blood Gas Comments Tal well sw 04/19/21 05:00 Sodium 153 mmol/L (136-145) H* 04/21/21 05:58 Corrected Sodium TNP 04/21/21 05:58 Potassium 4.6 mmol/L (3.5-5.1) 04/21/21 05:58 Chloride 124 mmol/L (98-107) H* 04/21/21 05:58 Carbon Dioxide 17.9 mmol/L (21-32) L 04/21/21 05:58 BUN 53 mg/dL (7-18) H 04/21/21 05:58 Creatinine 1.37 mg/dL (0.55-1.02) H 04/21/21 05:58 Est GFR (MDRD) Af Amer 49 (>60) L 04/21/21 05:58 Est GFR (MDRD) Non-Af 40 (>60) L 04/21/21 05:58 Glucose 75 mg/dL (65-99) 04/21/21 05:58 POC Glucose (mg/dL) 80 mg/dL (65-99) 04/21/21 06:38 Lactic Acid 1.2 mmol/L (0.4-2.0) 04/18/21 18:16 Calcium 9.0 mg/dL (8.5-10.1) 04/21/21 05:58 Corrected Calcium 10.5 mg/dL (8.5-10.1) H 04/21/21 05:58 Total Bilirubin 0.30 mg/dL (0.2-1.0) 04/21/21 05:58 AST 18 Units/L (15-37) 04/21/21 05:58 ALT 39 Units/L (12-78) 04/21/21 05:58 Alkaline Phosphatase 80 Units/L (46-116) 04/21/21 05:58 Creatine Kinase 34 Units/L (26-192) 04/18/21 01:36 CK-MB (CK-2) < 1.0 ng/mL (0-4.0) 04/18/21 01:36 CK/CKMB % Calc 2.9 % (<4) 04/18/21 01:36 Troponin I < 0.02 ng/mL (0-1.5) 04/18/21 01:36 Total Protein 6.0 g/dL (6.4-8.2) L 04/21/21 05:58 Albumin 2.1 g/dL (3.4-5.0) L 04/21/21 05:58 Globulin 3.9 g/dL (2.5-4.5) 04/21/21 05:58 Albumin/Globulin Ratio 0.5 Ratio (1.1-2.1) L 04/21/21 05:58 Random Vancomycin 15.5 ug/mL 04/21/21 05:58 SARS-CoV-2 (PCR) Negative (NEGATIVE) 04/18/21 02:21 Influenza Type A (PCR) Negative (NEGATIVE) 04/18/21 02:21 Influenza Type B (PCR) Negative (NEGATIVE) 04/18/21 02:21 RSV (PCR) Negative (NEGATIVE) 04/18/21 02:21 - Plan (1) UTI (urinary tract infection) Status: Acute Qualifiers: Urinary tract infection type: acute cystitis Hematuria presence: with hematuria Qualified Code(s): N30.01 - Acute cystitis with hematuria Plan: 1/2NS AT 75 ML/HR, VANCOMYCIN 1G IV DAILY, FORTAZ 1G IV DAILY, DUONEBS QID, FENTANYL 100MCG/HR PATCH, OTBS ACHS, HUMULIN R SLIDING SCALE. (2) Sepsis Status: Acute Qualifiers: Sepsis type: Escherichia coli Sepsis acute organ dysfunction status: with acute organ dysfunction Severe sepsis acute organ dysfunction type: acute renal failure Acute renal failure type: unspecified Severe sepsis shock status: with septic shock Qualified Code(s): A41.51 - Sepsis due to Escherichia coli [E. coli]; R65.21 - Severe sepsis with septic shock; N17.9 - Acute kidney failure, unspecified
[2021-04-21] MEDS ORDERED: NovoLIN R (or HumuLIN R) SUBCUT PRN (16:21)
[2021-04-21] MEDS ORDERED: SNACK - Diabetic Appropriate PO SCH (20:00)
[2021-04-22] MEDS ORDERED: NS 1/2 1,000 ML IV 1,000 ML IV ONE ×2 (01:48→17:43)
[2021-04-22] MEDS: NS 1/2 1,000 ML IV 1,000 ML IV SCH ×3 (02:00→17:49)
[2021-04-22] MEDS ORDERED: D50W ABBOJECT SYR IV ONE (05:29)
[2021-04-22] MEDS ORDERED: D50W ABBOJECT SYR ONE (05:35)
[2021-04-22] MEDS ORDERED: NORCO 5/325 MG TAB ONE (06:11)
[2021-04-22] MEDS ORDERED: NORCO 5/325 MG TAB PO PRN (06:13)
[2021-04-22 06:21] LABS: BASOPHILS # (AUTO) 0.1 X10^3/uL (0.0-0.1); BASOPHILS % (AUTO) 0.3 % (0.2-1.0); EOSINOPHILS # (AUTO) 0.6 x10^3/uL (0.0-0.2); EOSINOPHILS % (AUTO) 3.5 % (0.9-2.9); HEMOGLOBIN 8.5 g/dL (12.0-16.0); LYMPHOCYTES # (AUTO) 2.4 X10^3/uL (1.3-2.9); LYMPHOCYTES % (AUTO) 12.8 % (21.0-51.0); MEAN CORPUSCULAR HEMOGLOBIN 28.1 pg (27.0-34.0); MEAN CORPUSCULAR HGB CONC 32.8 g/dL (33.0-35.0); MEAN CORPUSCULAR VOLUME 85.5 fL (80.0-100.0); MEAN PLATELET VOLUME 7.4 fL (7.4-11.0); MONOCYTES # (AUTO) 1.8 x10^3/uL (0.3-0.8); MONOCYTES % (AUTO) 9.8 % (0.0-13.0); NEUTROPHILS # (AUTO) 13.6 x10^3/uL (2.2-4.8); NEUTROPHILS % (AUTO) 73.6 % (42.0-75.0); PLATELET COUNT 512 X10^3/uL (150.0-450.0); RED BLOOD COUNT 3.04 X10^6/uL (3.5-5.4); RED CELL DISTRIBUTION WIDTH 16.3 % (11.6-16.5); WHITE BLOOD COUNT 18.4 X10^3/uL (3.6-10.0)
[2021-04-22 06:31] LABS: ALANINE AMINOTRANSFERASE 31 Units/L (12-78); ALBUMIN 2.2 g/dL (3.4-5.0); ALKALINE PHOSPHATASE 81 Units/L (46-116); ASPARTATE AMINO TRANSFERASE 17 Units/L (15-37); BLOOD UREA NITROGEN 39 mg/dL (7-18); CALCIUM 8.9 mg/dL (8.5-10.1); CARBON DIOXIDE 18.5 mmol/L (21-32); COR CA(FOR HYPOALB) 10.3 mg/dL (8.5-10.1); CREATININE 1.08 mg/dL (0.55-1.02); SODIUM 148 mmol/L (136-145); TOTAL PROTEIN 6.4 g/dL (6.4-8.2); eGFR NON BLACK RACES 53 (>60)
[2021-04-22 06:54] LABS: CHLORIDE 118 mmol/L (98-107)
[2021-04-22 07:59] LABS: BAND NEUTROPHILS % 2 % (0-10)
[2021-04-22 08:00] LABS: PLATELET MORPHOLOGY COMMENT NORMAL (NORMAL)
[2021-04-22] MEDS: DUONEB 0.5 MG/3 MG (3 mL) NEB SCH ×4 (08:45→21:09)
[2021-04-22] MEDS: DURAGESIC 75 mcg/HR PATCH TD SCH (09:25)
[2021-04-22] MEDS: CARDIZEM CD 240 MG 24-HR PO SCH (09:25)
[2021-04-22] MEDS: FORTAZ or TAZICEF VIAL INJ 1 G in NS 100 ML IV + SPIKE MINIBAG* 100 ML IV SCH (10:10)
[2021-04-22] MEDS ORDERED: PERCOCET TAB 5/325 MG ONE (12:39)
[2021-04-22] MEDS: PERCOCET TAB 5/325 MG PO PRN ×2 (12:51→21:30)
[2021-04-22] MEDS ORDERED: XANAX ONE (16:09)
[2021-04-22] MEDS: XANAX PO PRN ×2 (16:28→21:30)
--- NOTE | 2021-04-22 18:16 | PCM.PROG ---
Progress Note Progress Note for Day of Date of Exam: 04/22/21 Subjective Subjective: Patient seen at bedside. She is awake and alert. Daughter also present at bedside, states patient did not sleep much last night. She has been tolerating PO intake. She is currently being treated for sepsis due to recurrent UTI. Yesterday, patient was having a lot of pain and her fentanyl patch was supposed to be increased to 100mcg but she currently has the 75mcg patch on. Patient does not seem to be in any distress. She is able to answer simple questions and follow simple commands. Her UOP is slightly better than the day before, 950 cc/24hrs. Daughter states other family members will be coming later to discuss goals of care and resuscitation status. Labs reviewed Plan: continue current treatment with IV antibiotics and fluids. Will increase fentanyl patch to 75mcg and switch Hydrocodone to Oxycodone as that was working better for the patient as needed. Urine Cx show E.coli. Blood Cx are negative. Monitor AM labs and imaging. Time spent for clinical assessment, reviewing labs and imaging, physical exam, decision making and documentation greater than 45 mins. Past Medical Family Social History Past Med/Fam/Surg Hx: No changes since H&P Allergies: Allergies morphine Allergy (Verified 08/06/20 13:53) rofecoxib [From Vioxx] Allergy (Verified 08/06/20 13:53) Review of Systems ROS: No change since H&P Vital Signs and I&O's Vital Signs: Temperature 98.0 F Pulse Rate [Left Radial] 130 Pulse Rate 120 Respiratory Rate 20 Blood Pressure [Left Arm] 155/94 Blood Pressure 123/62 O2 Sat by Pulse Oximetry 98 Intake and Output: Intake & Output 04/19/21 04/20/21 04/21/21 04/22/21 23:59 23:59 23:59 23:59 Intake Total 1500 / 1500 168 / 168 729 / 729 458 / 458 Output Total 0 / 0 0 / 0 550 / 550 600 / 600 Balance 1500 / 1500 168 / 168 179 / 179 -142 / -142 Physical Exam Oriented: Unable to test Eyes: Normal Ear: Normal Nose: Normal Throat: Normal Respiratory: Generalized and Diminished Cardiovascular: Tachycardia and Irregular Auscultation: Bowel Sounds: Normal Tenderness: Normal Skin: Normal Musculoskeletal: Normal Psychiatric: Normal Mood Description: Calm Affect: Normal Speech Pattern: Delayed Laboratory and Diagnostics Result Diagrams: 04/22/21 05:20 04/22/21 05:20 Labs: 04/18/21 03:35 Blood Blood Culture - Preliminary 04/18/21 02:35 Blood Blood Culture - Preliminary Laboratory WBC 18.4 X10^3/uL (3.6-10.0) H 04/22/21 05:20 RBC 3.04 X10^6/uL (3.5-5.4) L 04/22/21 05:20 Hgb 8.5 g/dL (12.0-16.0) L 04/22/21 05:20 Hct 26.0 % (36.0-47.0) L 04/22/21 05:20 MCV 85.5 fL (80.0-100.0) 04/22/21 05:20 MCH 28.1 pg (27.0-34.0) 04/22/21 05:20 MCHC 32.8 g/dL (33.0-35.0) L 04/22/21 05:20 RDW 16.3 % (11.6-16.5) 04/22/21 05:20 Plt Count 512 X10^3/uL (150.0-450.0) H 04/22/21 05:20 Plt Count Comment Increased (ADEQUATE) A 04/22/21 05:20 MPV 7.4 fL (7.4-11.0) 04/22/21 05:20 Neut % (Auto) 73.6 % (42.0-75.0) 04/22/21 05:20 Lymph % (Auto) 12.8 % (21.0-51.0) L 04/22/21 05:20 [place] % (Auto) 9.8 % (0.0-13.0) 04/22/21 05:20 Eos % (Auto) 3.5 % (0.9-2.9) H 04/22/21 05:20 Baso % (Auto) 0.3 % (0.2-1.0) 04/22/21 05:20 Neut # (Auto) 13.6 x10^3/uL (2.2-4.8) H 04/22/21 05:20 Lymph # (Auto) 2.4 X10^3/uL (1.3-2.9) 04/22/21 05:20 [place] # (Auto) 1.8 x10^3/uL (0.3-0.8) H 04/22/21 05:20 Eos # (Auto) 0.6 x10^3/uL (0.0-0.2) H 04/22/21 05:20 Baso # (Auto) 0.1 X10^3/uL (0.0-0.1) 04/22/21 05:20 Absolute Nucleated RBC 0.3 /100WBC 04/22/21 05:20 Total Counted 100 04/22/21 05:20 Neutrophils % (Manual) 64 % (39-76) 04/22/21 05:20 Band Neutrophils % 2 % (0-10) 04/22/21 05:20 Lymphocytes % (Manual) 20 % (13-43) 04/22/21 05:20 Monocytes % (Manual) 12 % (4-9) H 04/22/21 05:20 Eosinophils % (Manual) 2 % (0-6) 04/22/21 05:20 Metamyelocytes % 2 04/20/21 05:27 Nucleated RBCs 1 04/22/21 05:20 Plt Morphology Comment Normal (NORMAL) 04/22/21 05:20 RBC Morphology Normal (NORMAL) 04/22/21 05:20 Anisocytosis Slight A 04/21/21 05:58 PT 21.2 SECONDS (11.8-14.3) 04/18/21 03:55 INR Target Range - 04/18/21 03:55 INR 1.94 (0.8-1.3) H 04/18/21 03:55 APTT 38.8 SECONDS (22.9-36.5) H 04/18/21 03:55 PTT Comment - 04/18/21 03:55 Sample Site Rr 04/19/21 05:00 ABG pH 7.370 (7.35-7.45) 04/19/21 05:00 ABG pCO2 32.0 mmHg (35.0-45.0) L 04/19/21 05:00 ABG pO2 72.0 mmHg (80.0-100.0) L 04/19/21 05:00 ABG HCO3 18.5 mmol/L (22-26) L 04/19/21 05:00 ABG O2 Saturation 94.0 % (90-100) 04/19/21 05:00 ABG Base Excess -5.8 mmol/L (-2.0-2.0) L 04/19/21 05:00 Lui Test Pos 04/19/21 05:00 A-a Gradient 88.0 mmHg 04/19/21 05:00 FiO2 28.0 04/19/21 05:00 Blood Gas Comments Tal well sw 04/19/21 05:00 Sodium 148 mmol/L (136-145) H 04/22/21 05:20 Corrected Sodium TNP 04/22/21 05:20 Potassium 4.1 mmol/L (3.5-5.1) 04/22/21 05:20 Chloride 118 mmol/L (98-107) H* 04/22/21 05:20 Carbon Dioxide 18.5 mmol/L (21-32) L 04/22/21 05:20 BUN 39 mg/dL (7-18) H 04/22/21 05:20 Creatinine 1.08 mg/dL (0.55-1.02) H 04/22/21 05:20 Est GFR (MDRD) Af Amer > 60 (>60) 04/22/21 05:20 Est GFR (MDRD) Non-Af 53 (>60) L 04/22/21 05:20 Glucose 63 mg/dL (65-99) L 04/22/21 05:20 POC Glucose (mg/dL) 84 mg/dL (65-99) 04/22/21 17:00 Lactic Acid 1.2 mmol/L (0.4-2.0) 04/18/21 18:16 Calcium 8.9 mg/dL (8.5-10.1) 04/22/21 05:20 Corrected Calcium 10.3 mg/dL (8.5-10.1) H 04/22/21 05:20 Total Bilirubin 0.30 mg/dL (0.2-1.0) 04/22/21 05:20 AST 17 Units/L (15-37) 04/22/21 05:20 ALT 31 Units/L (12-78) 04/22/21 05:20 Alkaline Phosphatase 81 Units/L (46-116) 04/22/21 05:20 Creatine Kinase 34 Units/L (26-192) 04/18/21 01:36 CK-MB (CK-2) < 1.0 ng/mL (0-4.0) 04/18/21 01:36 CK/CKMB % Calc 2.9 % (<4) 04/18/21 01:36 Troponin I < 0.02 ng/mL (0-1.5) 04/18/21 01:36 Total Protein 6.4 g/dL (6.4-8.2) 04/22/21 05:20 Albumin 2.2 g/dL (3.4-5.0) L 04/22/21 05:20 Globulin 4.2 g/dL (2.5-4.5) 04/22/21 05:20 Albumin/Globulin Ratio 0.5 Ratio (1.1-2.1) L 04/22/21 05:20 Random Vancomycin 15.5 ug/mL 04/21/21 05:58 SARS-CoV-2 (PCR) Negative (NEGATIVE) 04/18/21 02:21 Influenza Type A (PCR) Negative (NEGATIVE) 04/18/21 02:21 Influenza Type B (PCR) Negative (NEGATIVE) 04/18/21 02:21 RSV (PCR) Negative (NEGATIVE) 04/18/21 02:21 Plan (1) UTI (urinary tract infection): Status: Acute Qualifiers: Hematuria presence: with hematuria Urinary tract infection type: acute cystitis Qualified Code(s): N30.01 - Acute cystitis with hematuria (2) Sepsis: Status: Acute Qualifiers: Acute renal failure type: unspecified Sepsis acute organ dysfunction status: with acute organ dysfunction Sepsis type: Escherichia coli Severe sepsis acute organ dysfunction type: acute renal failure Severe sepsis shock status: with septic shock Qualified Code(s): A41.51 - Sepsis due to Escherichia coli [E. coli]; R65.21 - Severe sepsis with septic shock; N17.9 - Acute kidney failure, unspecified (3) Generalized weakness: Status: Acute (4) CVA (cerebral vascular accident): Status: Suspected Qualifiers: CVA mechanism: unspecified Qualified Code(s): I63.9 - Cerebral infarct ion, unspecified (5) Hypernatremia: Status: Acute (6) Frequent falls: Status: Acute (7) CAD (coronary artery disease): Status: Chronic Qualifiers: Associated angina: with unspecified angina Coronary Disease-Associated Artery/Lesion type: [place] artery [place] vs. transplanted heart: [place] heart Qualified Code(s): I25.119 - Atherosclerotic heart disease of [place] coronary artery with unspecified angina pectoris (8) COPD (chronic obstructive pulmonary disease): Status: Chronic Qualifiers: COPD type: unspecified COPD Qualified Code(s): J44.9 - Chronic obstructive pulmonary disease, unspecified (9) Hypertension: Status: Chronic Qualifiers: Hypertension type: primary hypertension Qualified Code(s): I10 - Essential (primary) hypertension (10) Anxiety: Status: Chronic
[2021-04-22] MEDS ORDERED: LOPRESSOR INJ 5 MG AMP IVP ONE ×2 (20:14→21:02)
[2021-04-22] MEDS ORDERED: LOPRESSOR INJ 5 MG AMP ONE (20:17)
[2021-04-22] MEDS: SNACK - Diabetic Appropriate PO SCH (21:31)
[2021-04-23] MEDS: PERCOCET TAB 5/325 MG PO PRN ×2 (02:17→08:54)
[2021-04-23] MEDS: XANAX PO PRN ×2 (02:18→08:55)
[2021-04-23 06:15] LABS: BASOPHILS % (AUTO) 0.2 % (0.2-1.0); EOSINOPHILS # (AUTO) 0.3 x10^3/uL (0.0-0.2); EOSINOPHILS % (AUTO) 1.2 % (0.9-2.9); HEMATOCRIT 27.3 % (36.0-47.0); HEMOGLOBIN 8.9 g/dL (12.0-16.0); LYMPHOCYTES # (AUTO) 2.6 X10^3/uL (1.3-2.9); LYMPHOCYTES % (AUTO) 11.9 % (21.0-51.0); MEAN CORPUSCULAR HEMOGLOBIN 27.7 pg (27.0-34.0); MEAN CORPUSCULAR HGB CONC 32.5 g/dL (33.0-35.0); MEAN CORPUSCULAR VOLUME 85.3 fL (80.0-100.0); MEAN PLATELET VOLUME 7.5 fL (7.4-11.0); MONOCYTES # (AUTO) 1.6 x10^3/uL (0.3-0.8); MONOCYTES % (AUTO) 7.4 % (0.0-13.0); NEUTROPHILS # (AUTO) 17.1 x10^3/uL (2.2-4.8); NEUTROPHILS % (AUTO) 79.3 % (42.0-75.0); PLATELET COUNT 487 X10^3/uL (150.0-450.0); RED BLOOD COUNT 3.21 X10^6/uL (3.5-5.4); RED CELL DISTRIBUTION WIDTH 16.6 % (11.6-16.5); WHITE BLOOD COUNT 21.6 X10^3/uL (3.6-10.0)
[2021-04-23 06:24] LABS: ALANINE AMINOTRANSFERASE 368 Units/L (12-78); ALBUMIN 2.2 g/dL (3.4-5.0); ALKALINE PHOSPHATASE 74 Units/L (46-116); ASPARTATE AMINO TRANSFERASE 659 Units/L (15-37); BLOOD UREA NITROGEN 36 mg/dL (7-18); CARBON DIOXIDE 15.7 mmol/L (21-32); COR CA(FOR HYPOALB) 10.4 mg/dL (8.5-10.1); CREATININE 1.07 mg/dL (0.55-1.02); SODIUM 148 mmol/L (136-145); TOTAL PROTEIN 6.1 g/dL (6.4-8.2); eGFR NON BLACK RACES 53 (>60)
[2021-04-23 06:26] LABS: CHLORIDE 117 mmol/L (98-107)
[2021-04-23 07:20] LABS: PLATELET MORPHOLOGY COMMENT NORMAL (NORMAL)
[2021-04-23] MEDS: CARDIZEM CD 240 MG 24-HR PO SCH (08:54)
[2021-04-23] MEDS: NS 1/2 1,000 ML IV 1,000 ML IV SCH (09:01)
[2021-04-23] MEDS: FORTAZ or TAZICEF VIAL INJ 1 G in NS 100 ML IV + SPIKE MINIBAG* 100 ML IV SCH (09:01)
[2021-04-23] MEDS: DUONEB 0.5 MG/3 MG (3 mL) NEB SCH ×4 (09:06→20:20)
--- NOTE | 2021-04-23 10:59 | PCM.PROG ---
Progress Note Progress Note for Day of Date of Exam: 04/23/21 Subjective Subjective: Patient seen at bedside. She is resting comfortably with no distress. Patient opens eyes to name calling. No family present at bedside today. She is currently being treated for sepsis due to recurrent UTI. Patient's resuscitation status was changed to DNR yesterday. Labs reviewed - patient's LFTs noted to be significantly elevated today. Plan: continue current treatment with IV antibiotics and fluids. DC Vancomycin. Continue Fentanyl patch and decrease Oxycodone. Will DC xanax as patient is more drowsy today. Urine Cx show E.coli. Blood Cx are negative. Monitor AM labs and imaging. Time spent for clinical assessment, reviewing labs and imaging, physical exam, decision making and documentation greater than 45 mins. Past Medical Family Social History Past Med/Fam/Surg Hx: No changes since H&P Allergies: Allergies morphine Allergy (Verified 08/06/20 13:53) rofecoxib [From Vioxx] Allergy (Verified 08/06/20 13:53) Review of Systems ROS: No change since H&P Vital Signs and I&O's Vital Signs: Temperature 97.3 F Pulse Rate [Left Radial] 114 Pulse Rate 122 Respiratory Rate 20 Blood Pressure [Left Arm] 132/86 Blood Pressure 120/72 O2 Sat by Pulse Oximetry 94 Intake and Output: Intake & Output 04/20/21 04/21/21 04/22/21 04/23/21 23:59 23:59 23:59 23:59 Intake Total 168 / 168 729 / 729 1418 / 1418 440 / 440 Output Total 0 / 0 550 / 550 725 / 725 75 / 75 Balance 168 / 168 179 / 179 693 / 693 365 / 365 Physical Exam Oriented: Unable to test Eyes: Normal Ear: Normal Nose: Normal Throat: Normal Respiratory: Generalized and Diminished Cardiovascular: Tachycardia and Irregular Auscultation: Bowel Sounds: Normal Tenderness: Normal Skin: Normal Musculoskeletal: Normal Psychiatric: Normal Mood Description: Calm Affect: Normal Laboratory and Diagnostics Result Diagrams: 04/23/21 05:51 04/23/21 05:51 Labs: 04/18/21 03:35 Blood Blood Culture - Final 04/18/21 02:35 Blood Blood Culture - Final Laboratory WBC 21.6 X10^3/uL (3.6-10.0) H 04/23/21 05:51 RBC 3.21 X10^6/uL (3.5-5.4) L 04/23/21 05:51 Hgb 8.9 g/dL (12.0-16.0) L 04/23/21 05:51 Hct 27.3 % (36.0-47.0) L 04/23/21 05:51 MCV 85.3 fL (80.0-100.0) 04/23/21 05:51 MCH 27.7 pg (27.0-34.0) 04/23/21 05:51 MCHC 32.5 g/dL (33.0-35.0) L 04/23/21 05:51 RDW 16.6 % (11.6-16.5) H 04/23/21 05:51 Plt Count 487 X10^3/uL (150.0-450.0) H 04/23/21 05:51 Plt Count Comment Increased (ADEQUATE) A 04/23/21 05:51 MPV 7.5 fL (7.4-11.0) 04/23/21 05:51 Neut % (Auto) 79.3 % (42.0-75.0) H 04/23/21 05:51 Lymph % (Auto) 11.9 % (21.0-51.0) L 04/23/21 05:51 [place] % (Auto) 7.4 % (0.0-13.0) 04/23/21 05:51 Eos % (Auto) 1.2 % (0.9-2.9) 04/23/21 05:51 Baso % (Auto) 0.2 % (0.2-1.0) 04/23/21 05:51 Neut # (Auto) 17.1 x10^3/uL (2.2-4.8) H 04/23/21 05:51 Lymph # (Auto) 2.6 X10^3/uL (1.3-2.9) 04/23/21 05:51 [place] # (Auto) 1.6 x10^3/uL (0.3-0.8) H 04/23/21 05:51 Eos # (Auto) 0.3 x10^3/uL (0.0-0.2) H 04/23/21 05:51 Baso # (Auto) 0.0 X10^3/uL (0.0-0.1) 04/23/21 05:51 Absolute Nucleated RBC 0.5 /100WBC 04/23/21 05:51 Total Counted 100 04/23/21 05:51 Neutrophils % (Manual) 75 % (39-76) 04/23/21 05:51 Band Neutrophils % 2 % (0-10) 04/22/21 05:20 Lymphocytes % (Manual) 15 % (13-43) 04/23/21 05:51 Monocytes % (Manual) 7 % (4-9) 04/23/21 05:51 Eosinophils % (Manual) 3 % (0-6) 04/23/21 05:51 Metamyelocytes % 2 04/20/21 05:27 Nucleated RBCs 1 04/22/21 05:20 Plt Morphology Comment Normal (NORMAL) 04/23/21 05:51 RBC Morphology Normal (NORMAL) 04/23/21 05:51 Anisocytosis Slight A 04/21/21 05:58 PT 21.2 SECONDS (11.8-14.3) 04/18/21 03:55 INR Target Range - 04/18/21 03:55 INR 1.94 (0.8-1.3) H 04/18/21 03:55 APTT 38.8 SECONDS (22.9-36.5) H 04/18/21 03:55 PTT Comment - 04/18/21 03:55 Sample Site Rr 04/19/21 05:00 ABG pH 7.370 (7.35-7.45) 04/19/21 05:00 ABG pCO2 32.0 mmHg (35.0-45.0) L 04/19/21 05:00 ABG pO2 72.0 mmHg (80.0-100.0) L 04/19/21 05:00 ABG HCO3 18.5 mmol/L (22-26) L 04/19/21 05:00 ABG O2 Saturation 94.0 % (90-100) 04/19/21 05:00 ABG Base Excess -5.8 mmol/L (-2.0-2.0) L 04/19/21 05:00 Lui Test Pos 04/19/21 05:00 A-a Gradient 88.0 mmHg 04/19/21 05:00 FiO2 28.0 04/19/21 05:00 Blood Gas Comments Tal well sw 04/19/21 05:00 Sodium 148 mmol/L (136-145) H 04/23/21 05:51 Corrected Sodium TNP 04/23/21 05:51 Potassium 4.3 mmol/L (3.5-5.1) 04/23/21 05:51 Chloride 117 mmol/L (98-107) H* 04/23/21 05:51 Carbon Dioxide 15.7 mmol/L (21-32) L 04/23/21 05:51 BUN 36 mg/dL (7-18) H 04/23/21 05:51 Creatinine 1.07 mg/dL (0.55-1.02) H 04/23/21 05:51 Est GFR (MDRD) Af Amer > 60 (>60) 04/23/21 05:51 Est GFR (MDRD) Non-Af 53 (>60) L 04/23/21 05:51 Glucose 92 mg/dL (65-99) 04/23/21 05:51 POC Glucose (mg/dL) 78 mg/dL (65-99) 04/23/21 05:53 Lactic Acid 1.2 mmol/L (0.4-2.0) 04/18/21 18:16 Calcium 9.0 mg/dL (8.5-10.1) 04/23/21 05:51 Corrected Calcium 10.4 mg/dL (8.5-10.1) H 04/23/21 05:51 Total Bilirubin 0.30 mg/dL (0.2-1.0) 04/23/21 05:51 AST 659 Units/L (15-37) H 04/23/21 05:51 ALT 368 Units/L (12-78) H 04/23/21 05:51 Alkaline Phosphatase 74 Units/L (46-116) 04/23/21 05:51 Creatine Kinase 34 Units/L (26-192) 04/18/21 01:36 CK-MB (CK-2) < 1.0 ng/mL (0-4.0) 04/18/21 01:36 CK/CKMB % Calc 2.9 % (<4) 04/18/21 01:36 Troponin I < 0.02 ng/mL (0-1.5) 04/18/21 01:36 Total Protein 6.1 g/dL (6.4-8.2) L 04/23/21 05:51 Albumin 2.2 g/dL (3.4-5.0) L 04/23/21 05:51 Globulin 3.9 g/dL (2.5-4.5) 04/23/21 05:51 Albumin/Globulin Ratio 0.6 Ratio (1.1-2.1) L 04/23/21 05:51 Random Vancomycin 15.5 ug/mL 04/21/21 05:58 SARS-CoV-2 (PCR) Negative (NEGATIVE) 04/18/21 02:21 Influenza Type A (PCR) Negative (NEGATIVE) 04/18/21 02:21 Influenza Type B (PCR) Negative (NEGATIVE) 04/18/21 02:21 RSV (PCR) Negative (NEGATIVE) 04/18/21 02:21 Plan (1) UTI (urinary tract infection): Status: Acute Qualifiers: Hematuria presence: with hematuria Urinary tract infection type: acute cystitis Qualified Code(s): N30.01 - Acute cystitis with hematuria (2) Sepsis: Status: Acute Qualifiers: Acute renal failure type: unspecified Sepsis acute organ dysfunction status: with acute organ dysfunction Sepsis type: Escherichia coli Severe sepsis acute organ dysfunction type: acute renal failure Severe sepsis shock status: with septic shock Qualified Code(s): A41.51 - Sepsis due to Escherichia coli [E. coli]; R65.21 - Severe sepsis with septic shock; N17.9 - Acute kidney failure, unspecified (3) Generalized weakness: Status: Acute (4) CVA (cerebral vascular accident): Status: Suspected Qualifiers: CVA mechanism: unspecified Qualified Code(s): I63.9 - Cerebral infarction, unspecified (5) Hypernatremia: Status: Acute (6) Frequent falls: Status: Acute (7) CAD (coronary artery disease): Status: Chronic Qualifiers: Associated angina: with unspecified angina Coronary Disease-Associated Artery/Lesion type: [place] artery [place] vs. transplanted heart: pokagon heart Qualified Code(s): I25.119 - Atherosclerotic heart disease of [place] coronary artery with unspecified angina pectoris (8) COPD (chronic obstructive pulmonary disease): Status: Chronic Qualifiers: COPD type: unspecified COPD Qualified Code(s): J44.9 - Chronic obs tructive pulmonary disease, unspecified (9) Hypertension: Status: Chronic Qualifiers: Hypertension type: primary hypertension Qualified Code(s): I10 - Essential (primary) hypertension (10) Anxiety: Status: Chronic
[2021-04-23] MEDS ORDERED: PHARMACY COMMENT IV NR (11:00)
[2021-04-23 11:58] LABS: CREATININE 1.04 mg/dL (0.55-1.02); VANCOMYCIN,TROUGH 10.3 ug/mL (15-20)
[2021-04-23] MEDS ORDERED: BUTT CREAM (COMPOUND) TOP PRN (15:22)
[2021-04-23] MEDS ORDERED: BUTT CREAM (COMPOUND) ONE (15:23)
[2021-04-23] MEDS: SNACK - Diabetic Appropriate PO SCH (21:56)
[2021-04-24] MEDS: NS 1/2 1,000 ML IV 1,000 ML IV SCH (03:54)
[2021-04-24 06:05] LABS: BASOPHILS % (AUTO) 0.3 % (0.2-1.0); EOSINOPHILS # (AUTO) 0.3 x10^3/uL (0.0-0.2); HEMATOCRIT 27.4 % (36.0-47.0); HEMOGLOBIN 8.9 g/dL (12.0-16.0); LYMPHOCYTES % (AUTO) 12.4 % (21.0-51.0); MEAN CORPUSCULAR HEMOGLOBIN 27.7 pg (27.0-34.0); MEAN CORPUSCULAR HGB CONC 32.5 g/dL (33.0-35.0); MEAN PLATELET VOLUME 7.5 fL (7.4-11.0); MONOCYTES # (AUTO) 1.3 x10^3/uL (0.3-0.8); NEUTROPHILS # (AUTO) 12.4 x10^3/uL (2.2-4.8); NEUTROPHILS % (AUTO) 77.3 % (42.0-75.0); PLATELET COUNT 433 X10^3/uL (150.0-450.0); RED BLOOD COUNT 3.22 X10^6/uL (3.5-5.4); RED CELL DISTRIBUTION WIDTH 16.3 % (11.6-16.5)
[2021-04-24 06:16] LABS: ALANINE AMINOTRANSFERASE 276 Units/L (12-78); ALBUMIN 2.1 g/dL (3.4-5.0); ALKALINE PHOSPHATASE 78 Units/L (46-116); ASPARTATE AMINO TRANSFERASE 223 Units/L (15-37); BLOOD UREA NITROGEN 28 mg/dL (7-18); CALCIUM 9.1 mg/dL (8.5-10.1); CARBON DIOXIDE 17.9 mmol/L (21-32); COR CA(FOR HYPOALB) 10.6 mg/dL (8.5-10.1); CREATININE 0.86 mg/dL (0.55-1.02); SODIUM 149 mmol/L (136-145); TOTAL PROTEIN 6.1 g/dL (6.4-8.2); eGFR NON BLACK RACES > 60 (>60)
[2021-04-24 06:29] LABS: CHLORIDE 118 mmol/L (98-107)
[2021-04-24] MEDS ORDERED: NS 1/2 1,000 ML IV 1,000 ML IV ONE (07:50)
[2021-04-24] MEDS: FORTAZ or TAZICEF VIAL INJ 1 G in NS 100 ML IV + SPIKE MINIBAG* 100 ML IV SCH (08:20)
[2021-04-24] MEDS: CARDIZEM CD 240 MG 24-HR PO SCH (08:20)
[2021-04-24] MEDS: DUONEB 0.5 MG/3 MG (3 mL) NEB SCH ×4 (09:13→21:20)
[2021-04-24] MEDS: PERCOCET TAB 5/325 MG PO PRN ×2 (09:16→18:10)
--- NOTE | 2021-04-24 10:35 | PCM.PROG ---
Progress Note Progress Note for Day of Date of Exam: 04/24/21 Subjective Subjective: Patient seen at bedside. She is awake and alert this morning. Daughter present at bedside. She did eat some this morning. She states she feels better. She is currently being treated for sepsis due to recurrent UTI. Labs reviewed - LFTs trending down Plan: continue current treatment with IV antibiotics and fluids. Will order CXR. Patient has been having more dry cough and congestion. Continue nebs. Continue Fentanyl patch and Oxycodone. Urine Cx show E.coli. Blood Cx are negative. Monitor AM labs and imaging. Time spent for clinical assessment, reviewing labs and imaging, physical exam, decision making and documentation greater than 45 mins. Past Medical Family Social History Past Med/Fam/Surg Hx: No changes since H&P Allergies: Allergies morphine Allergy (Verified 08/06/20 13:53) rofecoxib [From Vioxx] Allergy (Verified 08/06/20 13:53) Review of Systems ROS: No change since H&P Vital Signs and I&O's Vital Signs: Temperature 97.9 F Pulse Rate [Left Radial] 93 Pulse Rate 107 Respiratory Rate 17 Blood Pressure [Left Arm] 163/98 Blood Pressure 120/72 O2 Sat by Pulse Oximetry 97 Intake and Output: Intake & Output 04/21/21 04/22/21 04/23/21 04/24/21 23:59 23:59 23:59 23:59 Intake Total 729 / 729 1418 / 1418 825 / 825 258 / 258 Output Total 550 / 550 725 / 725 225 / 225 100 / 100 Balance 179 / 179 693 / 693 600 / 600 158 / 158 Physical Exam Oriented: Person and Place Eyes: Normal Ear: Normal Nose: Normal Throat: Normal Respiratory: Generalized, Wheezes and Rhonchi Cardiovascular: Tachycardia and Irregular Auscultation: Bowel Sounds: Normal Tenderness: Normal Skin: Normal Musculoskeletal: Normal Psychiatric: Normal Mood Description: Calm Affect: Normal Speech Pattern: Clear and Appropriate Laboratory and Diagnostics Result Diagrams: 04/24/21 05:25 04/24/21 05:25 Labs: 04/18/21 03:35 Blood Blood Culture - Final 04/18/21 02:35 Blood Blood Culture - Final Laboratory WBC 16.0 X10^3/uL (3.6-10.0) H 04/24/21 05:25 RBC 3.22 X10^6/uL (3.5-5.4) L 04/24/21 05:25 Hgb 8.9 g/dL (12.0-16.0) L 04/24/21 05:25 Hct 27.4 % (36.0-47.0) L 04/24/21 05:25 MCV 85.0 fL (80.0-100.0) 04/24/21 05:25 MCH 27.7 pg (27.0-34.0) 04/24/21 05:25 MCHC 32.5 g/dL (33.0-35.0) L 04/24/21 05:25 RDW 16.3 % (11.6-16.5) 04/24/21 05:25 Plt Count 433 X10^3/uL (150.0-450.0) 04/24/21 05:25 Plt Count Comment Increased (ADEQUATE) A 04/23/21 05:51 MPV 7.5 fL (7.4-11.0) 04/24/21 05:25 Neut % (Auto) 77.3 % (42.0-75.0) H 04/24/21 05:25 Lymph % (Auto) 12.4 % (21.0-51.0) L 04/24/21 05:25 [place] % (Auto) 8.0 % (0.0-13.0) 04/24/21 05:25 Eos % (Auto) 2.0 % (0.9-2.9) 04/24/21 05:25 Baso % (Auto) 0.3 % (0.2-1.0) 04/24/21 05:25 Neut # (Auto) 12.4 x10^3/uL (2.2-4.8) H 04/24/21 05:25 Lymph # (Auto) 2.0 X10^3/uL (1.3-2.9) 04/24/21 05:25 [place] # (Auto) 1.3 x10^3/uL (0.3-0.8) H 04/24/21 05:25 Eos # (Auto) 0.3 x10^3/uL (0.0-0.2) H 04/24/21 05:25 Baso # (Auto) 0.0 X10^3/uL (0.0-0.1) 04/24/21 05:25 Absolute Nucleated RBC 0.2 /100WBC 04/24/21 05:25 Total Counted 100 04/23/21 05:51 Neutrophils % (Manual) 75 % (39-76) 04/23/21 05:51 Band Neutrophils % 2 % (0-10) 04/22/21 05:20 Lymphocytes % (Manual) 15 % (13-43) 04/23/21 05:51 Monocytes % (Manual) 7 % (4-9) 04/23/21 05:51 Eosinophils % (Manual) 3 % (0-6) 04/23/21 05:51 Metamyelocytes % 2 04/20/21 05:27 Nucleated RBCs 1 04/22/21 05:20 Plt Morphology Comment Normal (NORMAL) 04/23/21 05:51 RBC Morphology Normal (NORMAL) 04/23/21 05:51 Anisocytosis Slight A 04/21/21 05:58 PT 21.2 SECONDS (11.8-14.3) 04/18/21 03:55 INR Target Range - 04/18/21 03:55 INR 1.94 (0.8-1.3) H 04/18/21 03:55 APTT 38.8 SECONDS (22.9-36.5) H 04/18/21 03:55 PTT Comment - 04/18/21 03:55 Sample Site Rr 04/19/21 05:00 ABG pH 7.370 (7.35-7.45) 04/19/21 05:00 ABG pCO2 32.0 mmHg (35.0-45.0) L 04/19/21 05:00 ABG pO2 72.0 mmHg (80.0-100.0) L 04/19/21 05:00 ABG HCO3 18.5 mmol/L (22-26) L 04/19/21 05:00 ABG O2 Saturation 94.0 % (90-100) 04/19/21 05:00 ABG Base Excess -5.8 mmol/L (-2.0-2.0) L 04/19/21 05:00 Lui Test Pos 04/19/21 05:00 A-a Gradient 88.0 mmHg 04/19/21 05:00 FiO2 28.0 04/19/21 05:00 Blood Gas Comments Tal well sw 04/19/21 05:00 Sodium 149 mmol/L (136-145) H 04/24/21 05:25 Corrected Sodium TNP 04/24/21 05:25 Potassium 3.9 mmol/L (3.5-5.1) 04/24/21 05:25 Chloride 118 mmol/L (98-107) H* 04/24/21 05:25 Carbon Dioxide 17.9 mmol/L (21-32) L 04/24/21 05:25 BUN 28 mg/dL (7-18) H 04/24/21 05:25 Creatinine 0.86 mg/dL (0.55-1.02) 04/24/21 05:25 Est GFR (MDRD) Af Amer > 60 (>60) 04/24/21 05:25 Est GFR (MDRD) Non-Af > 60 (>60) 04/24/21 05:25 Glucose 72 mg/dL (65-99) 04/24/21 05:25 POC Glucose (mg/dL) 67 mg/dL (65-99) 04/23/21 21:24 Lactic Acid 1.2 mmol/L (0.4-2.0) 04/18/21 18:16 Calcium 9.1 mg/dL (8.5-10.1) 04/24/21 05:25 Corrected Calcium 10.6 mg/dL (8.5-10.1) H 04/24/21 05:25 Total Bilirubin 0.30 mg/dL (0.2-1.0) 04/24/21 05:25 AST 223 Units/L (15-37) H 04/24/21 05:25 ALT 276 Units/L (12-78) H 04/24/21 05:25 Alkaline Phosphatase 78 Units/L (46-116) 04/24/21 05:25 Creatine Kinase 34 Units/L (26-192) 04/18/21 01:36 CK-MB (CK-2) < 1.0 ng/mL (0-4.0) 04/18/21 01:36 CK/CKMB % Calc 2.9 % (<4) 04/18/21 01:36 Troponin I < 0.02 ng/mL (0-1.5) 04/18/21 01:36 Total Protein 6.1 g/dL (6.4-8.2) L 04/24/21 05:25 Albumin 2.1 g/dL (3.4-5.0) L 04/24/21 05:25 Globulin 4.0 g/dL (2.5-4.5) 04/24/21 05:25 Albumin/Globulin Ratio 0.5 Ratio (1.1-2.1) L 04/24/21 05:25 Vancomycin Trough 10.3 ug/mL (15-20) L 04/23/21 11:07 Random Vancomycin 15.5 ug/mL 04/21/21 05:58 SARS-CoV-2 (PCR) Negative (NEGATIVE) 04/18/21 02:21 Influenza Type A (PCR) Negative (NEGATIVE) 04/18/21 02:21 Influenza Type B (PCR) Negative (NEGATIVE) 04/18/21 02:21 RSV (PCR) Negative (NEGATIVE) 04/18/21 02:21 Plan (1) UTI (urinary tract infection): Status: Acute Qualifiers: Hematuria presence: with hematuria Urinary tract infection type: acute cystitis Qualified Code(s): N30.01 - Acute cystitis with hematuria (2) Sepsis: Status: Acute Qualifiers: Acute renal failure type: unspecified Sepsis acute organ dysfunction status: with acute organ dysfunction Sepsis type: Escherichia coli Severe sepsis acute organ dysfunction type: acute renal failure Severe sepsis shock status: with septic shock Qualified Code(s): A41.51 - Sepsis due to Escherichia coli [E. coli]; R65.21 - Severe sepsis with septic shock; N17.9 - Acute kidney failure, unspecified (3) Generalized weakness: Status: Acute (4) CVA (cerebral vascular accident): Status: Suspected Qualifiers: CVA mechanism: unspecified Qualified Code(s): I63.9 - Cerebral infarction, unspecified (5) Hypernatremia: Status: Acute (6) Frequent falls: Status: Acute (7) CAD (coronary artery disease): Status: Chronic Qualifiers: Associated angina: with unspecified angina Coronary Disease-Associated Artery/Lesion type: [place] artery [place] vs. transplanted heart: [place] heart Qualified Code(s): I25.119 - Atherosclerotic heart disease of [place] coronary artery with unspecified angina pectoris (8) COPD (chronic obstructive pulmonary disease): Status: Chronic Qualifiers: COPD type: unspecified COPD Qualified Code(s): J44.9 - Chronic obstructive pulmonary disease, unspecified (9) Hypertension: Status: Chronic Qualifiers: Hypertension type: primary hypertension Qualified Code(s): I10 - Essential (primary) hypertension (10) Anxiety: Status: Chronic
[2021-04-24] MEDS ORDERED: TESSALON PERLES PO PRN (10:36)
[2021-04-24] MEDS ORDERED: ROBITUSSIN DM PO PRN (10:36)
[2021-04-24] MEDS: SNACK - Diabetic Appropriate PO SCH (20:37)
[2021-04-25] MEDS: NS 1/2 1,000 ML IV 1,000 ML IV SCH (03:47)
--- NOTE | 2021-04-25 06:10 | RAD ---
HISTORYCough hypoxiaSTUDYAP [id number] normal heart size and contour. No change in position of the left IJ port extending to the right atrium. Developing infiltrate noted in the right upper lobe and suspect left base as well. No dominant mass, pneumothorax or pleural fluid.IMPRESSIONRight upper lobe infiltrate consistent with pneumonia. Minimal similar process in the left base may be present. Follow-up suggested.Electronically signed by: ZAC AVENDANO (Apr 25, 2021 06:08:47)
[2021-04-25 06:23] LABS: BASOPHILS % (AUTO) 0.2 % (0.2-1.0); EOSINOPHILS # (AUTO) 0.2 x10^3/uL (0.0-0.2); EOSINOPHILS % (AUTO) 1.7 % (0.9-2.9); HEMATOCRIT 24.2 % (36.0-47.0); HEMOGLOBIN 7.9 g/dL (12.0-16.0); LYMPHOCYTES # (AUTO) 1.6 X10^3/uL (1.3-2.9); LYMPHOCYTES % (AUTO) 12.4 % (21.0-51.0); MEAN CORPUSCULAR HEMOGLOBIN 27.8 pg (27.0-34.0); MEAN CORPUSCULAR HGB CONC 32.7 g/dL (33.0-35.0); MEAN CORPUSCULAR VOLUME 84.8 fL (80.0-100.0); MEAN PLATELET VOLUME 7.6 fL (7.4-11.0); MONOCYTES # (AUTO) 1.2 x10^3/uL (0.3-0.8); MONOCYTES % (AUTO) 8.8 % (0.0-13.0); NEUTROPHILS # (AUTO) 10.1 x10^3/uL (2.2-4.8); NEUTROPHILS % (AUTO) 76.9 % (42.0-75.0); PLATELET COUNT 353 X10^3/uL (150.0-450.0); RED BLOOD COUNT 2.85 X10^6/uL (3.5-5.4); RED CELL DISTRIBUTION WIDTH 16.2 % (11.6-16.5); WHITE BLOOD COUNT 13.2 X10^3/uL (3.6-10.0)
[2021-04-25] MEDS: PERCOCET TAB 5/325 MG PO PRN (06:39)
[2021-04-25 06:45] LABS: ALANINE AMINOTRANSFERASE 182 Units/L (12-78); ALKALINE PHOSPHATASE 68 Units/L (46-116); ASPARTATE AMINO TRANSFERASE 67 Units/L (15-37); BLOOD UREA NITROGEN 23 mg/dL (7-18); CALCIUM 8.7 mg/dL (8.5-10.1); CARBON DIOXIDE 18.8 mmol/L (21-32); COR CA(FOR HYPOALB) 10.3 mg/dL (8.5-10.1); CREATININE 0.72 mg/dL (0.55-1.02); eGFR NON BLACK RACES > 60 (>60)
[2021-04-25 06:47] LABS: CHLORIDE 121 mmol/L (98-107); SODIUM 153 mmol/L (136-145)
[2021-04-25] MEDS: CARDIZEM CD 240 MG 24-HR PO SCH (08:26)
[2021-04-25] MEDS: FORTAZ or TAZICEF VIAL INJ 1 G in NS 100 ML IV + SPIKE MINIBAG* 100 ML IV SCH (08:26)
[2021-04-25] MEDS: DUONEB 0.5 MG/3 MG (3 mL) NEB SCH ×4 (09:18→20:38)
[2021-04-25] MEDS: DURAGESIC 75 mcg/HR PATCH TD SCH (10:05)
[2021-04-25] MEDS: SNACK - Diabetic Appropriate PO SCH (20:20)
--- NOTE | 2021-04-25 22:00 | PCM.PROG ---
Progress Note Progress Note for Day of Date of Exam: 04/25/21 Subjective Subjective: Patient seen at bedside. She is awake and alert this morning. present at bedside. She did eat some this morning. She states she feels better. She is currently being treated for sepsis due to recurrent UTI. CXR showed right sided pneumonia. Labs reviewed - LFTs trending down Plan: continue current treatment with IV antibiotics, increase NS 1/2 to 50cc/hr. Continue nebs. Add IS. Continue Fentanyl patch and Oxycodone. Encouraged oral intake. Urine Cx show E.coli. Blood Cx are negative. Monitor AM labs and imaging. Time spent for clinical assessment, reviewing labs and imaging, physical exam, decision making and documentation greater than 45 mins. Past Medical Family Social History Past Med/Fam/Surg Hx: No changes since H&P Allergies: Allergies morphine Allergy (Verified 08/06/20 13:53) rofecoxib [From Vioxx] Allergy (Verified 08/06/20 13:53) Review of Systems ROS: No change since H&P Vital Signs and I&O's Vital Signs: Temperature 98.9 F Pulse Rate [Left Radial] 109 Pulse Rate 117 Respiratory Rate 22 Blood Pressure [Left Arm] 131/84 Blood Pressure 120/72 O2 Sat by Pulse Oximetry 96 Intake and Output: Intake & Output 04/22/21 04/23/21 04/24/21 04/25/21 23:59 23:59 23:59 23:59 Intake Total 1418 / 1418 825 / 825 658 / 658 1328 / 1328 Output Total 725 / 725 225 / 225 125 / 125 200 / 200 Balance 693 / 693 600 / 600 533 / 533 1128 / 1128 Physical Exam Oriented: Person and Place Eyes: Normal Ear: Normal Nose: Normal Throat: Normal Respiratory: Generalized, Diminished and Rhonchi Cardiovascular: Tachycardia and Irregular Auscultation: Bowel Sounds: Normal Tenderness: Normal Skin: Normal Musculoskeletal: Normal Psychiatric: Normal Mood Description: Calm Affect: Normal Speech Pattern: Clear and Appropriate Laboratory and Diagnostics Result Diagrams: 04/25/21 05:30 04/25/21 05:30 Labs: 04/18/21 03:35 Blood Blood Culture - Final 04/18/21 02:35 Blood Blood Culture - Final Laboratory WBC 13.2 X10^3/uL (3.6-10.0) H 04/25/21 05:30 RBC 2.85 X10^6/uL (3.5-5.4) L 04/25/21 05:30 Hgb 7.9 g/dL (12.0-16.0) L 04/25/21 05:30 Hct 24.2 % (36.0-47.0) L 04/25/21 05:30 MCV 84.8 fL (80.0-100.0) 04/25/21 05:30 MCH 27.8 pg (27.0-34.0) 04/25/21 05:30 MCHC 32.7 g/dL (33.0-35.0) L 04/25/21 05:30 RDW 16.2 % (11.6-16.5) 04/25/21 05:30 Plt Count 353 X10^3/uL (150.0-450.0) 04/25/21 05:30 Plt Count Comment Increased (ADEQUATE) A 04/23/21 05:51 MPV 7.6 fL (7.4-11.0) 04/25/21 05:30 Neut % (Auto) 76.9 % (42.0-75.0) H 04/25/21 05:30 Lymph % (Auto) 12.4 % (21.0-51.0) L 04/25/21 05:30 [place] % (Auto) 8.8 % (0.0-13.0) 04/25/21 05:30 Eos % (Auto) 1.7 % (0.9-2.9) 04/25/21 05:30 Baso % (Auto) 0.2 % (0.2-1.0) 04/25/21 05:30 Neut # (Auto) 10.1 x10^3/uL (2.2-4.8) H 04/25/21 05:30 Lymph # (Auto) 1.6 X10^3/uL (1.3-2.9) 04/25/21 05:30 [place] # (Auto) 1.2 x10^3/uL (0.3-0.8) H 04/25/21 05:30 Eos # (Auto) 0.2 x10^3/uL (0.0-0.2) 04/25/21 05:30 Baso # (Auto) 0.0 X10^3/uL (0.0-0.1) 04/25/21 05:30 Absolute Nucleated RBC 0.3 /100WBC 04/25/21 05:30 Total Counted 100 04/23/21 05:51 Neutrophils % (Manual) 75 % (39-76) 04/23/21 05:51 Band Neutrophils % 2 % (0-10) 04/22/21 05:20 Lymphocytes % (Manual) 15 % (13-43) 04/23/21 05:51 Monocytes % (Manual) 7 % (4-9) 04/23/21 05:51 Eosinophils % (Manual) 3 % (0-6) 04/23/21 05:51 Metamyelocytes % 2 04/20/21 05:27 Nucleated RBCs 1 04/22/21 05:20 Plt Morphology Comment Normal (NORMAL) 04/23/21 05:51 RBC Morphology Normal (NORMAL) 04/23/21 05:51 Anisocytosis Slight A 04/21/21 05:58 PT 21.2 SECONDS (11.8-14.3) 04/18/21 03:55 INR Target Range - 04/18/21 03:55 INR 1.94 (0.8-1.3) H 04/18/21 03:55 APTT 38.8 SECONDS (22.9-36.5) H 04/18/21 03:55 PTT Comment - 04/18/21 03:55 Sample Site Rr 04/19/21 05:00 ABG pH 7.370 (7.35-7.45) 04/19/21 05:00 ABG pCO2 32.0 mmHg (35.0-45.0) L 04/19/21 05:00 ABG pO2 72.0 mmHg (80.0-100.0) L 04/19/21 05:00 ABG HCO3 18.5 mmol/L (22-26) L 04/19/21 05:00 ABG O2 Saturation 94.0 % (90-100) 04/19/21 05:00 ABG Base Excess -5.8 mmol/L (-2.0-2.0) L 04/19/21 05:00 Lui Test Pos 04/19/21 05:00 A-a Gradient 88.0 mmHg 04/19/21 05:00 FiO2 28.0 04/19/21 05:00 Blood Gas Comments Tal well sw 04/19/21 05:00 Sodium 153 mmol/L (136-145) H* 04/25/21 05:30 Corrected Sodium TNP 04/25/21 05:30 Potassium 3.8 mmol/L (3.5-5.1) 04/25/21 05:30 Chloride 121 mmol/L (98-107) H* 04/25/21 05:30 Carbon Dioxide 18.8 mmol/L (21-32) L 04/25/21 05:30 BUN 23 mg/dL (7-18) H 04/25/21 05:30 Creatinine 0.72 mg/dL (0.55-1.02) 04/25/21 05:30 Est GFR (MDRD) Af Amer > 60 (>60) 04/25/21 05:30 Est GFR (MDRD) Non-Af > 60 (>60) 04/25/21 05:30 Glucose 83 mg/dL (65-99) 04/25/21 05:30 POC Glucose (mg/dL) 85 mg/dL (65-99) 04/25/21 20:18 Lactic Acid 1.2 mmol/L (0.4-2.0) 04/18/21 18:16 Calcium 8.7 mg/dL (8.5-10.1) 04/25/21 05:30 Corrected Calcium 10.3 mg/dL (8.5-10.1) H 04/25/21 05:30 Total Bilirubin 0.30 mg/dL (0.2-1.0) 04/25/21 05:30 AST 67 Units/L (15-37) H 04/25/21 05:30 ALT 182 Units/L (12-78) H 04/25/21 05:30 Alkaline Phosphatase 68 Units/L (46-116) 04/25/21 05:30 Creatine Kinase 34 Units/L (26-192) 04/18/21 01:36 CK-MB (CK-2) < 1.0 ng/mL (0-4.0) 04/18/21 01:36 CK/CKMB % Calc 2.9 % (<4) 04/18/21 01:36 Troponin I < 0.02 ng/mL (0-1.5) 04/18/21 01:36 Total Protein 6.0 g/dL (6.4-8.2) L 04/25/21 05:30 Albumin 2.0 g/dL (3.4-5.0) L 04/25/21 05:30 Globulin 4.0 g/dL (2.5-4.5) 04/25/21 05:30 Albumin/Globulin Ratio 0.5 Ratio (1.1-2.1) L 04/25/21 05:30 Vancomycin Trough 10.3 ug/mL (15-20) L 04/23/21 11:07 Random Vancomycin 15.5 ug/mL 04/21/21 05:58 SARS-CoV-2 (PCR) Negative (NEGATIVE) 04/18/21 02:21 Influenza Type A (PCR) Negative (NEGATIVE) 04/18/21 02:21 Influenza Type B (PCR) Negative (NEGATIVE) 04/18/21 02:21 RSV (PCR) Negative (NEGATIVE) 04/18/21 02:21 Plan (1) UTI (urinary tract infection): Status: Acute Qualifiers: Hematuria presence: with hematuria Urinary tract infection type: acute cystitis Qualified Code(s): N30.01 - Acute cystitis with hematuria (2) Sepsis: Status: Acute Qualifiers: Acute renal failure type: unspecified Sepsis acute organ dysfunction status: with acute organ dysfunction Sepsis type: Escherichia coli Severe sepsis acute organ dysfunction type: acute renal failure Severe sepsis shock status: with septic shock Qualified Code(s): A41.51 - Sepsis due to Escherichia coli [E. coli]; R65.21 - Severe sepsis with septic shock; N17.9 - Acute kidney failure, unspecified (3) Generalized weakness: Status: Acute (4) CVA (cerebral vascular accident): Status: Suspected Qualifiers: CVA mechanism: unspecified Qualified Code(s): I63.9 - Cerebral infarction, unspecified (5) Hypernatremia: Status: Acute (6) Frequent falls: Status: Acute (7) CAD (coronary artery disease): Status: Chronic Qualifiers: Associated angina: with unspecified angina Coronary Disease-Associated Artery/Lesion type: [place] artery [place] vs. transplanted heart: [place] heart Qualified Code(s): I25.119 - Atherosclerotic heart disease of [place] coronary artery with unspecified angina pectoris (8) COPD (chronic obstructive pulmonary disease): Status: Chronic Qualifiers: COPD type: unspecified COPD Qualified Code(s): J44.9 - Chronic obstructive pulmonary disease, unspecified (9) Hypertension: Status: Chronic Qualifiers: Hypertension type: primary hypertension Qualified Code(s): I10 - Essential (primary) hypertension (10) Anxiety: Status: Chronic
[2021-04-26] MEDS ORDERED: NS 1/2 1,000 ML IV 1,000 ML IV ONE (02:12)
[2021-04-26] MEDS: NS 1/2 1,000 ML IV 1,000 ML IV SCH (03:13)
[2021-04-26] MEDS: PERCOCET TAB 5/325 MG PO PRN (03:18)
[2021-04-26 06:13] LABS: BASOPHILS % (AUTO) 0.2 % (0.2-1.0); EOSINOPHILS # (AUTO) 0.2 x10^3/uL (0.0-0.2); EOSINOPHILS % (AUTO) 0.9 % (0.9-2.9); HEMATOCRIT 27.9 % (36.0-47.0); HEMOGLOBIN 8.9 g/dL (12.0-16.0); LYMPHOCYTES # (AUTO) 2.5 X10^3/uL (1.3-2.9); LYMPHOCYTES % (AUTO) 12.3 % (21.0-51.0); MEAN CORPUSCULAR HEMOGLOBIN 27.3 pg (27.0-34.0); MEAN CORPUSCULAR VOLUME 85.2 fL (80.0-100.0); MEAN PLATELET VOLUME 8.1 fL (7.4-11.0); MONOCYTES # (AUTO) 1.5 x10^3/uL (0.3-0.8); MONOCYTES % (AUTO) 7.3 % (0.0-13.0); NEUTROPHILS # (AUTO) 16.2 x10^3/uL (2.2-4.8); NEUTROPHILS % (AUTO) 79.3 % (42.0-75.0); PLATELET COUNT 379 X10^3/uL (150.0-450.0); RED BLOOD COUNT 3.28 X10^6/uL (3.5-5.4); RED CELL DISTRIBUTION WIDTH 16.3 % (11.6-16.5); WHITE BLOOD COUNT 20.5 X10^3/uL (3.6-10.0)
[2021-04-26 06:22] LABS: ALANINE AMINOTRANSFERASE 130 Units/L (12-78); ALBUMIN 2.3 g/dL (3.4-5.0); ALKALINE PHOSPHATASE 75 Units/L (46-116); ASPARTATE AMINO TRANSFERASE 29 Units/L (15-37); BLOOD UREA NITROGEN 17 mg/dL (7-18); CALCIUM 8.8 mg/dL (8.5-10.1); CARBON DIOXIDE 18.5 mmol/L (21-32); COR CA(FOR HYPOALB) 10.2 mg/dL (8.5-10.1); CREATININE 0.66 mg/dL (0.55-1.02); SODIUM 149 mmol/L (136-145); TOTAL PROTEIN 6.6 g/dL (6.4-8.2); eGFR NON BLACK RACES > 60 (>60)
[2021-04-26 06:26] LABS: CHLORIDE 116 mmol/L (98-107)
[2021-04-26] MEDS: CARDIZEM CD 240 MG 24-HR PO SCH (08:36)
[2021-04-26] MEDS: FORTAZ or TAZICEF VIAL INJ 1 G in NS 100 ML IV + SPIKE MINIBAG* 100 ML IV SCH (08:36)
[2021-04-26] MEDS: DUONEB 0.5 MG/3 MG (3 mL) NEB SCH ×4 (08:50→20:42)
--- NOTE | 2021-04-26 10:40 | RAD ---
HISTORYHYPOXIA, PNEUMONIASTUDYCHES x-ray t, 1 VIEWCOMPARISONX-ray 04/24/2021FINDINGSPort catheter terminates in the region of the right atrium of the heart. Heart is normal in size. Persistent vague densities are seen throughout the right lung. This may be pneumonia. Possible mild involvement of the left lower lung by pneumonia, also. Lung infiltrates are unchanged. No pneumothorax or pleural effusion is seen.IMPRESSIONProbable bilateral pneumonia is similar to prior study.Electronically signed by: Lazaro Modi (Apr 26, 2021 10:38:52)
[2021-04-26] MEDS: VIBRAMYCIN 100 MG in D5W 250 ML IV 250 ML IV SCH ×2 (14:07→20:39)
[2021-04-26] MEDS: D5 1/2 NS 1,000 ML 1,000 ML IV SCH (14:07)
--- NOTE | 2021-04-26 14:22 | PCM.PROG ---
Progress Note Progress Note for Day of Date of Exam: 04/26/21 Subjective Subjective: Patient seen at bedside, no acute events overnight. Patient seems to have more oral secretions today and sounds more congested. She is no respiratory distress. Family at bedside. Labs reviewed - LFTs trending down Plan: Order CXR. Continue current treatment with IV antibiotics. Add doxycycline for atypical coverage. Change to NPO, speech consult. Continue nebs and IS. Continue Fentanyl patch and Oxycodone. Urine Cx show E.coli. Blood Cx are negative. Monitor AM labs and imaging. Time spent for clinical assessment, reviewing labs and imaging, physical exam, decision making and documentation greater than 45 mins. Past Medical Family Social History Past Med/Fam/Surg Hx: No changes since H&P Allergies: Allergies morphine Allergy (Verified 08/06/20 13:53) rofecoxib [From Vioxx] Allergy (Verified 08/06/20 13:53) Review of Systems ROS: No change since H&P Vital Signs and I&O's Vital Signs: Temperature 98.2 F Pulse Rate [Left Radial] 114 Pulse Rate 110 Respiratory Rate 22 Blood Pressure [Left Arm] 140/93 Blood Pressure 120/72 O2 Sat by Pulse Oximetry 96 Intake and Output: Intake & Output 04/23/21 04/24/21 04/25/21 04/26/21 23:59 23:59 23:59 23:59 Intake Total 825 / 825 658 / 658 2643 / 2643 Output Total 225 / 225 125 / 125 400 / 400 Balance 600 / 600 533 / 533 2243 / 2243 Physical Exam Oriented: Person and Place Eyes: Normal Ear: Normal Nose: Normal Throat: Normal Respiratory: Generalized, Diminished and Rhonchi Cardiovascular: Tachycardia and Irregular Auscultation: Bowel Sounds: Normal Tenderness: Normal Skin: Normal Musculoskeletal: Normal Psychiatric: Normal Mood Description: Calm Affect: Normal Speech Pattern: Clear and Appropriate Laboratory and Diagnostics Result Diagrams: 04/26/21 05:25 04/26/21 05:25 Labs: 04/18/21 03:35 Blood Blood Culture - Final 04/18/21 02:35 Blood Blood Culture - Final Laboratory WBC 20.5 X10^3/uL (3.6-10.0) H 04/26/21 05:25 RBC 3.28 X10^6/uL (3.5-5.4) L 04/26/21 05:25 Hgb 8.9 g/dL (12.0-16.0) L 04/26/21 05:25 Hct 27.9 % (36.0-47.0) L 04/26/21 05:25 MCV 85.2 fL (80.0-100.0) 04/26/21 05:25 MCH 27.3 pg (27.0-34.0) 04/26/21 05:25 MCHC 32.0 g/dL (33.0-35.0) L 04/26/21 05:25 RDW 16.3 % (11.6-16.5) 04/26/21 05:25 Plt Count 379 X10^3/uL (150.0-450.0) 04/26/21 05:25 Plt Count Comment Increased (ADEQUATE) A 04/23/21 05:51 MPV 8.1 fL (7.4-11.0) 04/26/21 05:25 Neut % (Auto) 79.3 % (42.0-75.0) H 04/26/21 05:25 Lymph % (Auto) 12.3 % (21.0-51.0) L 04/26/21 05:25 [place] % (Auto) 7.3 % (0.0-13.0) 04/26/21 05:25 Eos % (Auto) 0.9 % (0.9-2.9) 04/26/21 05:25 Baso % (Auto) 0.2 % (0.2-1.0) 04/26/21 05:25 Neut # (Auto) 16.2 x10^3/uL (2.2-4.8) H 04/26/21 05:25 Lymph # (Auto) 2.5 X10^3/uL (1.3-2.9) 04/26/21 05:25 [place] # (Auto) 1.5 x10^3/uL (0.3-0.8) H 04/26/21 05:25 Eos # (Auto) 0.2 x10^3/uL (0.0-0.2) 04/26/21 05:25 Baso # (Auto) 0.0 X10^3/uL (0.0-0.1) 04/26/21 05:25 Absolute Nucleated RBC 0.4 /100WBC 04/26/21 05:25 Total Counted 100 04/23/21 05:51 Neutrophils % (Manual) 75 % (39-76) 04/23/21 05:51 Band Neutrophils % 2 % (0-10) 04/22/21 05:20 Lymphocytes % (Manual) 15 % (13-43) 04/23/21 05:51 Monocytes % (Manual) 7 % (4-9) 04/23/21 05:51 Eosinophils % (Manual) 3 % (0-6) 04/23/21 05:51 Metamyelocytes % 2 04/20/21 05:27 Nucleated RBCs 1 04/22/21 05:20 Plt Morphology Comment Normal (NORMAL) 04/23/21 05:51 RBC Morphology Normal (NORMAL) 04/23/21 05:51 Anisocytosis Slight A 04/21/21 05:58 PT 21.2 SECONDS (11.8-14.3) 04/18/21 03:55 INR Target Range - 04/18/21 03:55 INR 1.94 (0.8-1.3) H 04/18/21 03:55 APTT 38.8 SECONDS (22.9-36.5) H 04/18/21 03:55 PTT Comment - 04/18/21 03:55 Sample Site Rr 04/19/21 05:00 ABG pH 7.370 (7.35-7.45) 04/19/21 05:00 ABG pCO2 32.0 mmHg (35.0-45.0) L 04/19/21 05:00 ABG pO2 72.0 mmHg (80.0-100.0) L 04/19/21 05:00 ABG HCO3 18.5 mmol/L (22-26) L 04/19/21 05:00 ABG O2 Saturation 94.0 % (90-100) 04/19/21 05:00 ABG Base Excess -5.8 mmol/L (-2.0-2.0) L 04/19/21 05:00 Lui Test Pos 04/19/21 05:00 A-a Gradient 88.0 mmHg 04/19/21 05:00 FiO2 28.0 04/19/21 05:00 Blood Gas Comments Tal well sw 04/19/21 05:00 Sodium 149 mmol/L (136-145) H 04/26/21 05:25 Corrected Sodium TNP 04/26/21 05:25 Potassium 3.7 mmol/L (3.5-5.1) 04/26/21 05:25 Chloride 116 mmol/L (98-107) H* 04/26/21 05:25 Carbon Dioxide 18.5 mmol/L (21-32) L 04/26/21 05:25 BUN 17 mg/dL (7-18) 04/26/21 05:25 Creatinine 0.66 mg/dL (0.55-1.02) 04/26/21 05:25 Est GFR (MDRD) Af Amer > 60 (>60) 04/26/21 05:25 Est GFR (MDRD) Non-Af > 60 (>60) 04/26/21 05:25 Glucose 84 mg/dL (65-99) 04/26/21 05:25 POC Glucose (mg/dL) 67 mg/dL (65-99) 04/26/21 11:53 Lactic Acid 1.2 mmol/L (0.4-2.0) 04/18/21 18:16 Calcium 8.8 mg/dL (8.5-10.1) 04/26/21 05:25 Corrected Calcium 10.2 mg/dL (8.5-10.1) H 04/26/21 05:25 Total Bilirubin 0.30 mg/dL (0.2-1.0) 04/26/21 05:25 AST 29 Units/L (15-37) 04/26/21 05:25 ALT 130 Units/L (12-78) H 04/26/21 05:25 Alkaline Phosphatase 75 Units/L (46-116) 04/26/21 05:25 Creatine Kinase 34 Units/L (26-192) 04/18/21 01:36 CK-MB (CK-2) < 1.0 ng/mL (0-4.0) 04/18/21 01:36 CK/CKMB % Calc 2.9 % (<4) 04/18/21 01:36 Troponin I < 0.02 ng/mL (0-1.5) 04/18/21 01:36 Total Protein 6.6 g/dL (6.4-8.2) 04/26/21 05:25 Albumin 2.3 g/dL (3.4-5.0) L 04/26/21 05:25 Globulin 4.3 g/dL (2.5-4.5) 04/26/21 05:25 Albumin/Globulin Ratio 0.5 Ratio (1.1-2.1) L 04/26/21 05:25 Vancomycin Trough 10.3 ug/mL (15-20) L 04/23/21 11:07 Random Vancomycin 15.5 ug/mL 04/21/21 05:58 SARS-CoV-2 (PCR) Negative (NEGATIVE) 04/18/21 02:21 Influenza Type A (PCR) Negative (NEGATIVE) 04/18/21 02:21 Influenza Type B (PCR) Negative (NEGATIVE) 04/18/21 02:21 RSV (PCR) Negative (NEGATIVE) 04/18/21 02:21 Plan (1) Pneumonia: Status: Acute Qualifiers: Laterality: left Lung location: lower lobe of lung Pneumonia type: due to Klebsiella pneumoniae Qualified Code(s): J15.0 - Pneumonia due to Klebsiella pneumoniae (2) UTI (urinary tract infection): Status: Acute Qualifiers: Hematuria presence: with hematuria Urinary tract infection type: acute cystitis Qualified Code(s): N30.01 - Acute cystitis with hematuria (3) Sepsis: Status: Acute Qualifiers: Acute renal failure type: unspecified Sepsis acute organ dysfunction status: with acute organ dysfunction Sepsis type: Escherichia coli Severe sepsis acute organ dysfunction type: acute renal failure Severe sepsis shock status: with septic shock Qualified Code(s): A41.51 - Sepsis due to Escherichia coli [E. coli]; R65.21 - Severe sepsis with septic shock; N17.9 - Acute kidney failure, unspecified (4) Generalized weakness: Status: Acute (5) CVA (cerebral vascular accident): Status: Suspected Qualifiers: CVA mechanism: unspecified Qualified Code(s): I63.9 - Cerebral infarc tion, unspecified (6) Hypernatremia: Status: Acute (7) Frequent falls: Status: Acute (8) CAD (coronary artery disease): Status: Chronic Qualifiers: Associated angina: with unspecified angina Coronary Disease-Associated Artery/Lesion type: [place] artery [place] vs. transplanted heart: [place] heart Qualified Code(s): I25.119 - Atherosclerotic heart disease of [place] coronary artery with unspecified angina pectoris (9) COPD (chronic obstructive pulmonary disease): Status: Chronic Qualifiers: COPD type: unspecified COPD Qualified Code(s): J44.9 - Chronic obstructive pulmonary disease, unspecified (10) Hypertension: Status: Chronic Qualifiers: Hypertension type: primary hypertension Qualified Code(s): I10 - Essential (primary) hypertension (11) Anxiety: Status: Chronic
[2021-04-26] MEDS: SNACK - Diabetic Appropriate PO SCH (20:34)
[2021-04-26] MEDS: LOVENOX INJ 40 MG SYR SC SCH (20:37)
--- NOTE | 2021-04-27 06:42 | RAD ---
HISTORYSOB HX: CAD, TN, HTN, ASTHMA, COPD, DM SX: GB, HYST.STUDYCHEST, 1 [id number] trachea is midline. Left Port-A-Cath tip in distal SVC. The cardiac silhouette is unremarkable. Increased interstitial markings throughout the lungs again noted. No pleural effusion or pneumothorax. The bony thorax is unremarkable.IMPRESSIONStable portable chest.Electronically signed by: Luis A Mayers (Apr 27, 2021 06:41:14)
[2021-04-27 07:01] LABS: BASOPHILS % (AUTO) 0.3 % (0.2-1.0); EOSINOPHILS # (AUTO) 0.2 x10^3/uL (0.0-0.2); EOSINOPHILS % (AUTO) 1.2 % (0.9-2.9); HEMATOCRIT 24.4 % (36.0-47.0); HEMOGLOBIN 8.1 g/dL (12.0-16.0); LYMPHOCYTES # (AUTO) 2.5 X10^3/uL (1.3-2.9); LYMPHOCYTES % (AUTO) 16.3 % (21.0-51.0); MEAN CORPUSCULAR HGB CONC 33.4 g/dL (33.0-35.0); MEAN CORPUSCULAR VOLUME 83.9 fL (80.0-100.0); MEAN PLATELET VOLUME 8.2 fL (7.4-11.0); MONOCYTES # (AUTO) 1.2 x10^3/uL (0.3-0.8); MONOCYTES % (AUTO) 7.9 % (0.0-13.0); NEUTROPHILS # (AUTO) 11.3 x10^3/uL (2.2-4.8); NEUTROPHILS % (AUTO) 74.3 % (42.0-75.0); PLATELET COUNT 335 X10^3/uL (150.0-450.0); RED CELL DISTRIBUTION WIDTH 16.5 % (11.6-16.5); WHITE BLOOD COUNT 15.2 X10^3/uL (3.6-10.0)
[2021-04-27 07:21] LABS: ALANINE AMINOTRANSFERASE 75 Units/L (12-78); ALKALINE PHOSPHATASE 68 Units/L (46-116); ASPARTATE AMINO TRANSFERASE 17 Units/L (15-37); BLOOD UREA NITROGEN 11 mg/dL (7-18); CALCIUM 8.2 mg/dL (8.5-10.1); CARBON DIOXIDE 18.6 mmol/L (21-32); CHLORIDE 113 mmol/L (98-107); COR CA(FOR HYPOALB) 9.8 mg/dL (8.5-10.1); CREATININE 0.53 mg/dL (0.55-1.02); SODIUM 143 mmol/L (136-145); TOTAL PROTEIN 6.1 g/dL (6.4-8.2); eGFR NON BLACK RACES > 60 (>60)
[2021-04-27] MEDS: DUONEB 0.5 MG/3 MG (3 mL) NEB SCH ×4 (08:25→20:20)
[2021-04-27] MEDS: LOVENOX INJ 40 MG SYR SC SCH (09:33)
[2021-04-27] MEDS: FORTAZ or TAZICEF VIAL INJ 1 G in NS 100 ML IV + SPIKE MINIBAG* 100 ML IV SCH (09:34)
[2021-04-27] MEDS: CARDIZEM CD 240 MG 24-HR PO SCH (09:46)
[2021-04-27] MEDS ORDERED: DURAGESIC 100 mcg/HR PATCH TD SCH (10:00)
[2021-04-27] MEDS: VIBRAMYCIN 100 MG in D5W 250 ML IV 250 ML IV SCH ×2 (11:01→20:35)
--- NOTE | 2021-04-27 13:04 | PCM.PROG ---
Progress Note - Progress Note for Day of Date of Exam: 04/27/21 - Subjective Subjective: WAS ADMITTED FOR TREATMENT OF SEPSIS DUE TO UTI AND BILATERAL PNEUMONIA. TODAY, SHE IS ALERT, LYING IN BED ON MORNING ROUNDS. HER DAUGHTER AND SPOUSE ARE AT BEDSIDE. PATIENTS DAUGTER REPORTS THAT SHE CONTINUED TO MOAN IF SHE WERE IN PAIN THROUGHOUT THE NIGHT. SHE IS CURRENTLY NPO DUE TO DYSPHAGIA. SHE HAS BEEN ABLE TO SWALLOW A FEW PILLS. HER URINE OUTPUT HAS IMPROVED SINCE WE LAST SAW HER. SHE DOES HAVE A NON-PRODUCTIVE COUGH THIS MORNING, BUT IS NOT IN ANY RESPIRATORY DISTRESS. ON EXAMINATION, SHE IS TACHYCARDIC WITH IRREGULAR RHYTHM. BILATERAL LUNGS NOTED WITH RHONCHI T HROUGHOUT. ABDOMEN IS ROUND, SOFT, AND NON-TENDER WITH NORMAL BOWEL SOUNDS NOTED IN ALL QUADRANTS. HER VITALS THIS MORNING ARE: 98.4-118-26-98%-143/84. LABS WERE OBTAINED. ABNORMAL LAB VALUES INCLUDE THE FOLLOWING: WBC 15.2, RBC 2.90, HGB 8.1, HCT 24.4, CHLORIDE 113, CARBON DIOXIDE 18.6, CREATININE 0.53, CALCIUM 8.2, TOTAL PROTEIN 6.1, ALBUMIN 2.0. A CHEST XRAY WAS OBTAINED THIS MORNING AND REVEALED: The trachea is midline. Left Port-A-Cath tip in distal SVC. The cardiac silhouette is unremarkable. Increased interstitial markings throughout the lungs again noted. No pleural effusion or pneumothorax. The bony thorax is unremarkable. SHE IS CURRENTLY RECEIVING D5 NS AT 50 ML/HR, DOXYCYCLINE 100MG IV Q12H, FORTAZ 1G IV DAILY, DUONEBS QID, OTBS ACHS, HUMULIN R SLIDING SCALE, FENTANYL 75MCG/HR PATCH, ATROPINE DROPS FOR SECRETIONS, TESSALON PERLES 100MG PO TID PRN, CARDIZEM CD 240MG PO DAILY, LOVENOS 40MG SC DAILY, PERCOCET 5/325MG PO Q4H PRN. TODAY, WE WILL INCREASE FENTANYL PATCH TO 100MCG/HR TODAY. OTHERWISE, WE WILL CONTINUE WITH CURRENT PLAN OF CARE. WE WILL HAVE SPEECH THERAPY REEV ALUATE PATIENT TOMORROW. WE PLAN TO FOLLOW UP WITH AM LABS AND CONTINUE TO MONITOR. TIME SPENT ON CLINICAL ASSESSMENT, REVIEWING LABS AND IMAGING, DECISION MAKING, AND DOCUMENTATION GREATER THAN 45 MINUTES. - Past Medical Family Social History Past Med/Fam/Surg Hx: No changes since H&P Allergies: Allergies morphine Allergy (Verified 08/06/20 13:53) rofecoxib [From Vioxx] Allergy (Verified 08/06/20 13:53) - Review of Systems ROS: No change since H&P - Vital Signs and I&O's Vital Signs: Temperature 98.4 F Pulse Rate [Left Radial] 118 Pulse Rate 116 Respiratory Rate 26 Blood Pressure [Left Arm] 143/84 Blood Pressure 120/72 O2 Sat by Pulse Oximetry 96 Intake and Output: Intake & Output 04/25/21 04/26/21 04/27/21 04/28/21 11:59 11:59 11:59 11:59 Intake Total 780 / 780 2263 / 2263 1607 / 1607 Output Total 100 / 100 325 / 325 75 / 75 Balance 680 / 680 1938 / 1938 1532 / 1532 - Physical Exam Oriented: Person, Place Eyes: Normal Ear: Normal Nose: Normal Throat: Normal Respiratory: Generalized, Diminished, Rhonchi Cardiovascular: Tachycardia, Irregular : Normal Auscultation: Bowel Sounds: Normal Palpation: Normal Tenderness: Normal Skin: Normal Musculoskeletal: Normal Psychiatric: Normal Mood Description: Calm Affect: Normal Speech Pattern: Clear, Appropriate - Laboratory and Diagnostics Result Diagrams: 04/27/21 06:26 04/27/21 06:26 Labs: 04/18/21 03:35 Blood Blood Culture - Final 04/18/21 02:35 Blood Blood Culture - Final Laboratory WBC 15.2 X10^3/uL (3.6-10.0) H 04/27/21 06:26 RBC 2.90 X10^6/uL (3.5-5.4) L 04/27/21 06:26 Hgb 8.1 g/dL (12.0-16.0) L 04/27/21 06:26 Hct 24.4 % (36.0-47.0) L 04/27/21 06:26 MCV 83.9 fL (80.0-100.0) 04/27/21 06:26 MCH 28.0 pg (27.0-34.0) 04/27/21 06:26 MCHC 33.4 g/dL (33.0-35.0) 04/27/21 06:26 RDW 16.5 % (11.6-16.5) 04/27/21 06:26 Plt Count 335 X10^3/uL (150.0-450.0) 04/27/21 06:26 Plt Count Comment Increased (ADEQUATE) A 04/23/21 05:51 MPV 8.2 fL (7.4-11.0) 04/27/21 06:26 Neut % (Auto) 74.3 % (42.0-75.0) 04/27/21 06:26 Lymph % (Auto) 16.3 % (21.0-51.0) L 04/27/21 06:26 [place] % (Auto) 7.9 % (0.0-13.0) 04/27/21 06:26 Eos % (Auto) 1.2 % (0.9-2.9) 04/27/21 06:26 Baso % (Auto) 0.3 % (0.2-1.0) 04/27/21 06:26 Neut # (Auto) 11.3 x10^3/uL (2.2-4.8) H 04/27/21 06:26 Lymph # (Auto) 2.5 X10^3/uL (1.3-2.9) 04/27/21 06:26 [place] # (Auto) 1.2 x10^3/uL (0.3-0.8) H 04/27/21 06:26 Eos # (Auto) 0.2 x10^3/uL (0.0-0.2) 04/27/21 06:26 Baso # (Auto) 0.0 X10^3/uL (0.0-0.1) 04/27/21 06:26 Absolute Nucleated RBC 0.1 /100WBC 04/27/21 06:26 Total Counted 100 04/23/21 05:51 Neutrophils % (Manual) 75 % (39-76) 04/23/21 05:51 Band Neutrophils % 2 % (0-10) 04/22/21 05:20 Lymphocytes % (Manual) 15 % (13-43) 04/23/21 05:51 Monocytes % (Manual) 7 % (4-9) 04/23/21 05:51 Eosinophils % (Manual) 3 % (0-6) 04/23/21 05:51 Metamyelocytes % 2 04/20/21 05:27 Nucleated RBCs 1 04/22/21 05:20 Plt Morphology Comment Normal (NORMAL) 04/23/21 05:51 RBC Morphology Normal (NORMAL) 04/23/21 05:51 Anisocytosis Slight A 04/21/21 05:58 PT 21.2 SECONDS (11.8-14.3) 04/18/21 03:55 INR Target Range - 04/18/21 03:55 INR 1.94 (0.8-1.3) H 04/18/21 03:55 APTT 38.8 SECONDS (22.9-36.5) H 04/18/21 03:55 PTT Comment - 04/18/21 03:55 Sample Site Rr 04/19/21 05:00 ABG pH 7.370 (7.35-7.45) 04/19/21 05:00 ABG pCO2 32.0 mmHg (35.0-45.0) L 04/19/21 05:00 ABG pO2 72.0 mmHg (80.0-100.0) L 04/19/21 05:00 ABG HCO3 18.5 mmol/L (22-26) L 04/19/21 05:00 ABG O2 Saturation 94.0 % (90-100) 04/19/21 05:00 ABG Base Excess -5.8 mmol/L (-2.0-2.0) L 04/19/21 05:00 Lui Test Pos 04/19/21 05:00 A-a Gradient 88.0 mmHg 04/19/21 05:00 FiO2 28.0 04/19/21 05:00 Blood Gas Comments Tal well sw 04/19/21 05:00 Sodium 143 mmol/L (136-145) 04/27/21 06:26 Corrected Sodium TNP 04/27/21 06:26 Potassium 3.5 mmol/L (3.5-5.1) 04/27/21 06:26 Chloride 113 mmol/L (98-107) H 04/27/21 06:26 Carbon Dioxide 18.6 mmol/L (21-32) L 04/27/21 06:26 BUN 11 mg/dL (7-18) 04/27/21 06:26 Creatinine 0.53 mg/dL (0.55-1.02) L 04/27/21 06:26 Est GFR (MDRD) Af Amer > 60 (>60) 04/27/21 06:26 Est GFR (MDRD) Non-Af > 60 (>60) 04/27/21 06:26 Glucose 86 mg/dL (65-99) 04/27/21 06:26 POC Glucose (mg/dL) 91 mg/dL (65-99) 04/27/21 11:35 Lactic Acid 1.2 mmol/L (0.4-2.0) 04/18/21 18:16 Calcium 8.2 mg/dL (8.5-10.1) L 04/27/21 06:26 Corrected Calcium 9.8 mg/dL (8.5-10.1) 04/27/21 06:26 Total Bilirubin 0.30 mg/dL (0.2-1.0) 04/27/21 06:26 AST 17 Units/L (15-37) 04/27/21 06:26 ALT 75 Units/L (12-78) 04/27/21 06:26 Alkaline Phosphatase 68 Units/L (46-116) 04/27/21 06:26 Creatine Kinase 34 Units/L (26-192) 04/18/21 01:36 CK-MB (CK-2) < 1.0 ng/mL (0-4.0) 04/18/21 01:36 CK/CKMB % Calc 2.9 % (<4) 04/18/21 01:36 Troponin I < 0.02 ng/mL (0-1.5) 04/18/21 01:36 Total Protein 6.1 g/dL (6.4-8.2) L 04/27/21 06:26 Albumin 2.0 g/dL (3.4-5.0) L 04/27/21 06:26 Globulin 4.1 g/dL (2.5-4.5) 04/27/21 06:26 Albumin/Globulin Ratio 0.5 Ratio (1.1-2.1) L 04/27/21 06:26 Vancomycin Trough 10.3 ug/mL (15-20) L 04/23/21 11:07 Random Vancomycin 15.5 ug/mL 04/21/21 05:58 SARS-CoV-2 (PCR) Negative (NEGATIVE) 04/18/21 02:21 Influenza Type A (PCR) Negative (NEGATIVE) 04/18/21 02:21 Influenza Type B (PCR) Negative (NEGATIVE) 04/18/21 02:21 RSV (PCR) Negative (NEGATIVE) 04/18/21 02:21 - Plan (1) UTI (urinary tract infection) Status: Acute Qualifiers: Urinary tract infection type: acute cystitis Hematuria presence: with hematuria Qualified Code(s): N30.01 - Acute cystitis with hematuria Plan: D5 NS AT 50 ML/HR, DOXYCYCLINE 100MG IV Q12H, FORTAZ 1G IV DAILY, DUONEBS QID, OTBS ACHS, HUMULIN R SLIDING SCALE, FENTANYL 75MCG/HR PATCH, ATROPINE DROPS FOR SECRETIONS, TESSALON PERLES 100MG PO TID PRN, CARDIZEM CD 240MG PO DAILY, LOVENOS 40MG SC DAILY, PERCOCET 5/325MG PO Q4H PRN. (2) Sepsis Status: Acute Qualifiers: Sepsis type: Escherichia coli Sepsis acute organ dysfunction status: with acute organ dysfunction Severe sepsis acute organ dysfunction type: acute renal failure Acute renal failure type: unspecified Severe sepsis shock status: with septic shock Qualified Code(s): A41.51 - Sepsis due to Es cherichia coli [E. coli]; R65.21 - Severe sepsis with septic shock; N17.9 - Acute kidney failure, unspecified
[2021-04-27] MEDS: D5 1/2 NS 1,000 ML 1,000 ML IV SCH (18:57)
[2021-04-28] MEDS: SNACK - Diabetic Appropriate PO SCH (06:00)
[2021-04-28 06:21] LABS: BASOPHILS # (AUTO) 0.1 X10^3/uL (0.0-0.1); BASOPHILS % (AUTO) 0.4 % (0.2-1.0); EOSINOPHILS # (AUTO) 0.2 x10^3/uL (0.0-0.2); EOSINOPHILS % (AUTO) 1.1 % (0.9-2.9); HEMATOCRIT 24.7 % (36.0-47.0); HEMOGLOBIN 8.2 g/dL (12.0-16.0); LYMPHOCYTES # (AUTO) 2.6 X10^3/uL (1.3-2.9); LYMPHOCYTES % (AUTO) 17.6 % (21.0-51.0); MEAN CORPUSCULAR HEMOGLOBIN 27.9 pg (27.0-34.0); MEAN CORPUSCULAR HGB CONC 33.3 g/dL (33.0-35.0); MEAN PLATELET VOLUME 8.1 fL (7.4-11.0); MONOCYTES # (AUTO) 1.3 x10^3/uL (0.3-0.8); MONOCYTES % (AUTO) 8.5 % (0.0-13.0); NEUTROPHILS # (AUTO) 10.7 x10^3/uL (2.2-4.8); NEUTROPHILS % (AUTO) 72.4 % (42.0-75.0); PLATELET COUNT 326 X10^3/uL (150.0-450.0); RED BLOOD COUNT 2.94 X10^6/uL (3.5-5.4); RED CELL DISTRIBUTION WIDTH 16.2 % (11.6-16.5); WHITE BLOOD COUNT 14.8 X10^3/uL (3.6-10.0)
--- NOTE | 2021-04-28 06:37 | RAD ---
HISTORYSOB HX: CAD, CO, HTN, ASTHMA, COPD, DM SX: GB, HYST.STUDYCHEST, 1 [id number] trachea is midline. Left Port-A-Cath tip unchanged with tip in the right atrium. The cardiac silhouette is unremarkable. Increased interstitial markings throughout the lungs with patchy right upper lobe infiltrate. No pneumothorax.. The bony thorax is unremarkable.IMPRESSIONIncreased interstitial markings throughout the lungs with patchy right upper lobe infiltrate.Electronically signed by: Luis A Mayers (Apr 28, 2021 06:35:06)
[2021-04-28 06:50] LABS: ALANINE AMINOTRANSFERASE 54 Units/L (12-78); ALKALINE PHOSPHATASE 69 Units/L (46-116); ASPARTATE AMINO TRANSFERASE 14 Units/L (15-37); BLOOD UREA NITROGEN 6 mg/dL (7-18); CALCIUM 8.1 mg/dL (8.5-10.1); CARBON DIOXIDE 21.9 mmol/L (21-32); CHLORIDE 109 mmol/L (98-107); COR CA(FOR HYPOALB) 9.7 mg/dL (8.5-10.1); CREATININE 0.52 mg/dL (0.55-1.02); SODIUM 142 mmol/L (136-145); TOTAL PROTEIN 6.1 g/dL (6.4-8.2); eGFR NON BLACK RACES > 60 (>60)
[2021-04-28] MEDS: LOVENOX INJ 40 MG SYR SC SCH (08:00)
[2021-04-28] MEDS: CARDIZEM CD 240 MG 24-HR PO SCH (08:00)
[2021-04-28] MEDS: VIBRAMYCIN 100 MG in D5W 250 ML IV 250 ML IV SCH (08:00)
[2021-04-28] MEDS: DUONEB 0.5 MG/3 MG (3 mL) NEB SCH (09:38)
[2021-04-28] MEDS: FORTAZ or TAZICEF VIAL INJ 1 G in NS 100 ML IV + SPIKE MINIBAG* 100 ML IV SCH (10:00)
[2021-04-28] MEDS ORDERED: ZOFRAN INJ 4 MG VIAL ONE (10:11)
[2021-04-28] MEDS: ZOFRAN INJ 4 MG VIAL IVP PRN ×2 (10:19→10:21)
[2021-04-28 11:49] VITALS: BP 134/84
== END 2021-04-28 11:15 | DRG 871 ==
LOC: ER 01:27 → MED/SURG 01:27 → OBSVTOIN 08:36 → MED/SURG 09:15
PROVIDERS: ADMIT Internal Medicine; ATTEND Internal Medicine
DX: M19.90 Unspecified osteoarthritis, unspecified site; E87.0 Hyperosmolality and hypernatremia; R13.11 Dysphagia, oral phase; R65.21 Severe sepsis with septic shock; I25.119 Atherosclerotic heart disease of native coronary artery with unspecified angina pectoris; F41.8 Other specified anxiety disorders; J18.8 Other pneumonia, unspecified organism; Z66 Do not resuscitate; L89.892 Pressure ulcer of other site, stage 2; I48.91 Unspecified atrial fibrillation; R29.6 Repeated falls; I10 Essential (primary) hypertension; R94.31 Abnormal electrocardiogram [ECG] [EKG]; A41.51 Sepsis due to Escherichia coli [E. coli]; J44.9 Chronic obstructive pulmonary disease, unspecified; L89.152 Pressure ulcer of sacral region, stage 2; Z20.822 Contact with and (suspected) exposure to COVID-19; N30.01 Acute cystitis with hematuria; R41.82 Altered mental status, unspecified; N17.8 Other acute kidney failure

== ENCOUNTER 2021-08-19 14:45 | Inpatient (IN) ==
[2021-08-19] MEDS ORDERED: CARDIZEM INJ 50 MG VIAL IVP ONE ×2 (15:18→17:23)
--- NOTE | 2021-08-19 15:21 | DR.HTN ---
HPI Time Seen Time Seen by Provider: 08/19/21 15:12 Primary Care Physician Primary Care Physician: Harley Complaints Chief Complaint Doctors Comments: HTN AFTER COVID BOOSTER YESTERDAY. SENT OVER FROM 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 Chief Complaint:: Pt sent from [facility] for high blood pressure. Pt received covid booster yesterday and has had high blood pressure since. 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 COVID-19 Coronavirus risk:travel/contact w/high risk person: No Has patient experienced Coronavirus symptoms: No Source History Provided: Patient Mode of Arrival Mode of Arrival: Wheelchair Timing Onset of Chief Complaint: 08/19/21 Context Treatment of HTN Prior to Arrival: Taking meds as prescribed Associated Signs and Symptoms HTN Associated Signs and Symptoms: Shortness of Breath PMH PMH Past Medical History: Yes Past Medical History: Anxiety, Arthritis, CHF, COPD, Coronary Artery Disease, Depression, Diabetes, Migraines, Hypertension and Hypothyroidism Past Surgical History: Yes Surgical History: Cholecystectomy, Hysterectomy and Other Family History History of Family Medical Conditions: Yes Family Medical History: Diabetes Mellitus, Cancer, [place] and Coronary Artery Disease Social History Do you use any recreational Drugs:: No Lives Where: [facility] Travel Risk Coronavirus risk:travel/contact w/high risk person: No Has patient experienced Coronavirus symptoms: No Infectious screening In the last 2 months have you had wt loss of >10#?: NO Have you had fever, night sweats or hemotysis?: No Have you traveled outside the country in the last 6 months?: No Isolation: Standard ROS Review of Systems Constitutional: Irritable Eyes: No Symptoms Reported ENTM: No Symptoms Reported Respiratoy: Short of Breath Cardiovascular: Palpitations Gastrointestinal/Abdominal: No Symptoms Reported Genitourinary: No Symptoms Reported Neurological: No Symptoms Reported Musculoskeletal: No Symptoms Reported Integumentary: No Symptoms Reported Hematologic/Lymphatic: No Symptoms Reported Endocrine: No Symptoms Reported Psychiatric: No Symptoms Reported All Other Systems: Reviewed and Negative PE Vital Signs Vitals: Temperature 99.6 F Pulse Rate 104 Respiratory Rate 23 Blood Pressure [Left Arm] 134/84 Blood Pressure 173/92 O2 Sat by Pulse Oximetry 100 General General Appearance: Anxious and In Distress (SEVERE DISTRESS) Head Head Exam: Normal Inspection Eyes Eye exam: Normal Appearance ENT ENT Exam: Normal Exam Neck Neck Exam: Normal Inspection Chest Chest Inspection: Normal Inspection Respiratory Respiratory Exam: Other (DEMINISHED BREATH SOUNDS IN R ML) Respiratory Exam: Right: Decreased Breath Sounds Cardiovascular Cardiovascular Exam: Normal Rhythm and Tachycardia Abdominal Exam Abdominal Exam: Normal Inspection, Normal Bowel Sounds and Soft Extremities Extremities Exam: Normal Inspection Back Back Exam: Normal Inspection Neurologic Neurological Exam: Alert and Oriented X3 Psychiatric Psychiatric Exam: Normal Affect and Normal Mood Skin Skin Exam: Warm, Dry, Intact and Normal Color MDM Additional Information Obtained Additional Findings:: MALIGNANT HYPERTENSION,TACHYCARDIA,SHORTNESS OF BREATH Differential Diagnosis Differential Diagnosis: Hypertensive emergency and Hypertensive urgency Differential Diagnosis Comment: PNEUMONIA,SVT,HYPERTENSIVE EMERGENCY COURSE Treatment Treatment: PATIENT REQUIRED SEVERAL COUSSES OF CARDIZEM 20MG IV INITIALLY AND SUSEQUENT 10MG IV,HYDRALAZINE 20MG IV AND FINALLY LABETALOL 20MG IV TO DECREASE THE HEART RATE BELOW 100 AND BP SYSTOLIC BELOW 150. THE PATIENT HAD CTA OF CHEST THAT DID NOT SHOW PULMONARY EMBOLUS BUT DID SHOW RML PNEUMONIA. D-DIMER WAS ELEVATED AT 3.39. SPOKE TO DR MENCHACA AT 955 AND HE STATED TO ADMIT TO HOSPITAL WITH PNEUMONIA,UTI AND HYPERTENSIVE URGENCY. ROR Labs Reviewed Laboratory Results Reviewed?: Yes Result Diagrams: 08/19/21 15:06 08/19/21 15:06 Laboratory: WBC 12.1 X10^3/uL (3.6-10.0) H 08/19/21 15:06 RBC 4.58 X10^6/uL (3.5-5.4) 08/19/21 15:06 Hgb 12.1 g/dL (12.0-16.0) 08/19/21 15:06 Hct 36.8 % (36.0-47.0) 08/19/21 15:06 MCV 80.4 fL (80.0-100.0) 08/19/21 15:06 MCH 26.4 pg (27.0-34.0) L 08/19/21 15:06 MCHC 32.8 g/dL (33.0-35.0) L 08/19/21 15:06 RDW 13.6 % (11.6-16.5) 08/19/21 15:06 Plt Count 466 X10^3/uL (150.0-450.0) H 08/19/21 15:06 MPV 7.0 fL (7.4-11.0) L 08/19/21 15:06 Neut % (Auto) 86.8 % (42.0-75.0) H 08/19/21 15:06 Lymph % (Auto) 5.1 % (21.0-51.0) L 08/19/21 15:06 [place] % (Auto) 5.6 % (0.0-13.0) 08/19/21 15:06 Eos % (Auto) 2.1 % (0.9-2.9) 08/19/21 15:06 Baso % (Auto) 0.4 % (0.2-1.0) 08/19/21 15:06 Neut # (Auto) 10.5 x10^3/uL (2.2-4.8) H 08/19/21 15:06 Lymph # (Auto) 0.6 X10^3/uL (1.3-2.9) L 08/19/21 15:06 [place] # (Auto) 0.7 x10^3/uL (0.3-0.8) 08/19/21 15:06 Eos # (Auto) 0.3 x10^3/uL (0.0-0.2) H 08/19/21 15:06 Baso # (Auto) 0.0 X10^3/uL (0.0-0.1) 08/19/21 15:06 Absolute Nucleated RBC 0.0 /100WBC 08/19/21 15:06 PT 14.8 SECONDS (11.8-14.3) 08/19/21 15:06 INR Target Range - 08/19/21 15:06 INR 1.20 (0.8-1.3) 08/19/21 15:06 APTT 30.5 SECONDS (22.9-36.5) 08/19/21 15:06 PTT Comment - 08/19/21 15:06 D-Dimer 3.89 ug/ml (0.0-0.57) H* 08/19/21 15:06 Sample Site Rra 08/19/21 18:04 ABG pH 7.460 (7.35-7.45) H 08/19/21 18:04 ABG pCO2 35.0 mmHg (35.0-45.0) 08/19/21 18:04 ABG pO2 86.0 mmHg (80.0-100.0) 08/19/21 18:04 ABG HCO3 24.9 mmol/L (22-26) 08/19/21 18:04 ABG O2 Saturation 97.0 % (90-100) 08/19/21 18:04 ABG Base Excess 1.3 mmol/L (-2.0-2.0) 08/19/21 18:04 Lui Test Pos 08/19/21 18:04 A-a Gradient 70.0 mmHg 08/19/21 18:04 FiO2 28.0 08/19/21 18:04 Blood Gas Comments Pt dior well eb 08/19/21 18:04 Sodium 138 mmol/L (136-145) 08/19/21 15:06 Corrected Sodium TNP 08/19/21 15:06 Potassium 3.8 mmol/L (3.5-5.1) 08/19/21 15:06 Chloride 102 mmol/L (98-107) 08/19/21 15:06 Carbon Dioxide 26.0 mmol/L (21-32) 08/19/21 15:06 BUN 9 mg/dL (7-18) 08/19/21 15:06 Creatinine 0.86 mg/dL (0.55-1.02) 08/19/21 15:06 Est GFR (MDRD) Af Amer > 60 (>60) 08/19/21 15:06 Est GFR (MDRD) Non-Af > 60 (>60) 08/19/21 15:06 Glucose 101 mg/dL (65-99) H 08/19/21 15:06 Lactic Acid 0.6 mmol/L (0.4-2.0) 08/19/21 20:15 Calcium 9.2 mg/dL (8.5-10.1) 08/19/21 15:06 Corrected Calcium 10.1 mg/dL (8.5-10.1) 08/19/21 15:06 Total Bilirubin 0.50 mg/dL (0.2-1.0) 08/19/21 15:06 AST 17 Units/L (15-37) 08/19/21 15:06 ALT 14 Units/L (12-78) 08/19/21 15:06 Alkaline Phosphatase 83 Units/L (46-116) 08/19/21 15:06 Creatine Kinase 133 Units/L (26-192) 08/19/21 15:06 CK-MB (CK-2) 3.4 ng/mL (0-4.0) 08/19/21 15:06 CK/CKMB % Calc 2.6 % (<4) 08/19/21 15:06 Troponin I High Sens 21.3 ng/L (4.0-60.0) 08/19/21 15:06 Total Protein 8.3 g/dL (6.4-8.2) H 08/19/21 15:06 Albumin 2.9 g/dL (3.4-5.0) L 08/19/21 15:06 Globulin 5.4 g/dL (2.5-4.5) H 08/19/21 15:06 Albumin/Globulin Ratio 0.5 Ratio (1.1-2.1) L 08/19/21 15:06 Specimen Type Catherized urine 08/19/21 19:03 Urine Color [place] (YELLOW) 08/19/21 19:03 Urine Appearance Cloudy (CLEAR) 08/19/21 19:03 Urine pH 8.0 (5.0 - 8.0) 08/19/21 19:03 Ur Specific [place] 1.015 (1.000-1.030) 08/19/21 19:03 Urine Protein 3+ (NEGATIVE) 08/19/21 19:03 Urine Glucose (UA) Negative (NEGATIVE) 08/19/21 19:03 Urine Ketones 2+ (NEGATIVE) 08/19/21 19:03 Urine Blood 5+ (NEGATIVE) 08/19/21 19: Urine Nitrite Negative (NEGATIVE) 08/19/21 19: Urine Bilirubin Negative (NEGATIVE) 08/19/21 19:03 Urine Urobilinogen Normal (NORMAL) 08/19/21 19:03 Ur Leukocyte Esterase 3+ (NEGATIVE) 08/19/21 19:03 Urine RBC Tntc /HPF (0-3) A 08/19/21 19:03 Urine WBC 30-50 /HPF (0-5) A 08/19/21 19:03 Ur Squamous Epith Cells Rare /HPF (NEGATIVE) 08/19/21 19:03 Urine Bacteria 2+ /HPF (NEGATIVE) 08/19/21 19:03 Ur Culture Indicated? Yes/culture set up 08/19/21 19:03 SARS-CoV-2 (PCR) Negative (NEGATIVE) 08/19/21 17:30 SARS CoV-2 RNA Rapid DURGA Cancelled 08/19/21 17:35 Opioid Opioid Risk Tool Age (Can box if 16-45): No History of Preadolescent Sexual Abuse: No Total: 0 Total Score Risk Category: Low Risk Copyright: Miko CASIANO predicting aberrant behaviors Diagnosis Discharge Problem: Hypertensive urgency Pneumonia Qualifiers: Qualified Code(s): J18.9 - Pneumonia, unspecified organism Urinary tract infection Qualifiers: Qualified Code(s): N39.0 - Urinary tract infection, site not specified
[2021-08-19] MEDS ORDERED: NITROSTAT SL PRN (15:27)
[2021-08-19] MEDS ORDERED: NITROSTAT ONE (15:30)
[2021-08-19 15:31] LABS: BASOPHILS % (AUTO) 0.4 % (0.2-1.0); EOSINOPHILS # (AUTO) 0.3 x10^3/uL (0.0-0.2); EOSINOPHILS % (AUTO) 2.1 % (0.9-2.9); HEMATOCRIT 36.8 % (36.0-47.0); HEMOGLOBIN 12.1 g/dL (12.0-16.0); LYMPHOCYTES # (AUTO) 0.6 X10^3/uL (1.3-2.9); LYMPHOCYTES % (AUTO) 5.1 % (21.0-51.0); MEAN CORPUSCULAR HEMOGLOBIN 26.4 pg (27.0-34.0); MEAN CORPUSCULAR HGB CONC 32.8 g/dL (33.0-35.0); MEAN CORPUSCULAR VOLUME 80.4 fL (80.0-100.0); MONOCYTES # (AUTO) 0.7 x10^3/uL (0.3-0.8); MONOCYTES % (AUTO) 5.6 % (0.0-13.0); NEUTROPHILS # (AUTO) 10.5 x10^3/uL (2.2-4.8); NEUTROPHILS % (AUTO) 86.8 % (42.0-75.0); RED BLOOD COUNT 4.58 X10^6/uL (3.5-5.4); RED CELL DISTRIBUTION WIDTH 13.6 % (11.6-16.5); WHITE BLOOD COUNT 12.1 X10^3/uL (3.6-10.0)
[2021-08-19 15:48] LABS: ALANINE AMINOTRANSFERASE 14 Units/L (12-78); ALBUMIN 2.9 g/dL (3.4-5.0); ALKALINE PHOSPHATASE 83 Units/L (46-116); ASPARTATE AMINO TRANSFERASE 17 Units/L (15-37); BLOOD UREA NITROGEN 9 mg/dL (7-18); CALCIUM 9.2 mg/dL (8.5-10.1); CHLORIDE 102 mmol/L (98-107); CKMB % 2.6 % (<4); COR CA(FOR HYPOALB) 10.1 mg/dL (8.5-10.1); CREATINE KINASE 133 Units/L (26-192); CREATINE KINASE MB 3.4 ng/mL (0-4.0); CREATININE 0.86 mg/dL (0.55-1.02); SODIUM 138 mmol/L (136-145); TOTAL PROTEIN 8.3 g/dL (6.4-8.2); eGFR NON BLACK RACES > 60 (>60)
[2021-08-19] MEDS ORDERED: APRESOLINE INJ 20 MG VIAL IVP ONE (16:24)
[2021-08-19] MEDS ORDERED: APRESOLINE INJ 20 MG VIAL ONE (16:26)
[2021-08-19] MEDS ORDERED: SOLU-Medrol 125 MG VIAL ONE (16:33)
[2021-08-19] MEDS ORDERED: SOLU-Medrol 125 MG VIAL IVP ONE (16:33)
[2021-08-19] MEDS ORDERED: ATIVAN INJ 2 MG VIAL IVP ONE ×2 (16:35→18:20)
[2021-08-19] MEDS ORDERED: ATIVAN INJ 2 MG VIAL ONE ×2 (16:41→18:15)
[2021-08-19] MEDS ORDERED: DUONEB 0.5 MG/3 MG (3 mL) NEB ONE (16:59)
[2021-08-19] MEDS ORDERED: NS 100 ML IV 100 ML ONE ×2 (17:49→21:28)
[2021-08-19] MEDS ORDERED: NORMODYNE INJ 100 MG VIAL IVP ONE (17:51)
[2021-08-19] MEDS ORDERED: NORMODYNE INJ 20 MG VIAL ONE (17:53)
[2021-08-19 18:04] LABS: ABG ALLEN TEST POS; ABG BASE EXCESS 1.3 mmol/L (-2.0-2.0); ABG HCO3 24.9 mmol/L (22-26)
[2021-08-19 19:21] LABS: BILIRUBIN,URINE NEGATIVE (NEGATIVE); BLOOD/HEMOGLOBIN,URINE 5+ (NEGATIVE); GLUCOSE, URINE NEGATIVE (NEGATIVE); KETONES,URINE 2+ (NEGATIVE); LEUKOCYTE ESTERASE ,URINE 3+ (NEGATIVE); NITRITES,URINE NEGATIVE (NEGATIVE); PROTEIN,URINE 3+ (NEGATIVE); UROBILINOGEN,URINE NORMAL (NORMAL)
[2021-08-19 19:30] LABS: APPEARANCE,URINE CLOUDY (CLEAR); BACTERIA,URINE 2+ /HPF (NEGATIVE); COLOR,URINE PINK (YELLOW); RBC,URINE TNTC /HPF (0-3); SQUAMOUS EPITHELIAL CELL,UR RARE /HPF (NEGATIVE)
--- NOTE | 2021-08-19 20:05 | CT ---
HISTORYSOB, ELEVATED DDIMER 3.89STUDYCTA CHESTCOMPARISONNone.TECHNIQUEMultiple axial images of the chest were obtained from the thoracic inlet to the upper abdomen after the administration of IV contrast. 3D reconstructions utilizing axial MIPS imaging was performed and reviewed. Dose reduction techniques including Automated Exposure Control (AEC) and adjustment of mA and kV were utilized.FINDINGSMany of the images are degraded by motion artifact. There is a left MediPort catheter in situ with its tip overlying the junction of the superior vena cava and right atrium. The mediastinum does not demonstrate significant pathological lymphadenopathy. There is no pericardial effusion observed. Atherosclerotic disease of the left anterior descending artery and left circumflex is noted. The thoracic aorta is normal in its contour without evidence for aneurysmal dilatation. The central pulmonary arterial system does not demonstrate central filling defects to suggest pulmonary emboli.Evaluation of the lung parenchyma there are increased interstitial markings noted throughout the right lung with focal alveolar infiltrates within the posterior segment of the right upper lobe. Linear subsegmental atelectasis of the right lower lobe is also seen. No pulmonary nodule or mass can be identified. The bony thorax reveals a anterior wedge deformity of T11 with sclerosis and collapse of the inferior endplate. This results in approximately 50 percent loss of the vertebral body height anteriorly noted. Bridging anterior osteophytes are also seen.. The visualized portions of the upper abdomen are grossly unremarkable .There is a total right shoulder arthroplasty in situ.There are cholecystectomy clips in the gallbladder fossa. There is an indeterminate low-attenuation lesion within the dome of the liver measuring 1.2 centimeters. There is an abnormal contour to the upper pole of the right kidney. It is unclear if this represents an exophytic solid mass arising from the right upper pole or whether this represents some type of cross fused ectopia of the right kidney. This abnormal area measures approximately 4.9 centimeters x 4.4 centimeters.IMPRESSION1. Right lung interstitial infiltrate.2. Contour abnormality of the upper pole of the right kidney. It is unclear if this represents some type of cross fused ectopia versus a solid mass arising from the upper pole of the right kidney. No prior CT abdomen and pelvis is available for comparison at this time. Once a previous becomes available, an addendum will gladly be given to assess the progression or stability of this finding.Electronically signed by: Marianela Yip (August 19, 2021 20:03:34)
[2021-08-19] MEDS ORDERED: ROCEPHIN 1 GRAM IV PREMIX 1 G/50 ML IV.SOLN. IV ONE ×2 (21:19→21:29)
[2021-08-19] MEDS ORDERED: NORMODYNE INJ 20 MG VIAL IVP PRN (23:51)
[2021-08-20] MEDS ORDERED: NovoLIN R (or HumuLIN R) SC PRN (00:07)
[2021-08-20] MEDS: ROCEPHIN 1 GRAM IV PREMIX 1 G/50 ML IV.SOLN. IV SCH (00:18)
[2021-08-20] MEDS ORDERED: NS 1,000 ML IV 1,000 ML ONE (00:49)
[2021-08-20] MEDS: NS 1,000 ML IV 1,000 ML IV SCH (03:22)
[2021-08-20 06:13] LABS: BASOPHILS % (AUTO) 0.1 % (0.2-1.0); HEMATOCRIT 35.6 % (36.0-47.0); HEMOGLOBIN 11.6 g/dL (12.0-16.0); LYMPHOCYTES # (AUTO) 0.6 X10^3/uL (1.3-2.9); LYMPHOCYTES % (AUTO) 5.7 % (21.0-51.0); MEAN CORPUSCULAR HEMOGLOBIN 26.1 pg (27.0-34.0); MEAN CORPUSCULAR HGB CONC 32.5 g/dL (33.0-35.0); MEAN CORPUSCULAR VOLUME 80.2 fL (80.0-100.0); MEAN PLATELET VOLUME 7.1 fL (7.4-11.0); MONOCYTES # (AUTO) 0.1 x10^3/uL (0.3-0.8); NEUTROPHILS # (AUTO) 10.4 x10^3/uL (2.2-4.8); NEUTROPHILS % (AUTO) 93.2 % (42.0-75.0); RED BLOOD COUNT 4.44 X10^6/uL (3.5-5.4); RED CELL DISTRIBUTION WIDTH 13.9 % (11.6-16.5); WHITE BLOOD COUNT 11.1 X10^3/uL (3.6-10.0)
[2021-08-20] MEDS: ROBITUSSIN DM PO PRN ×2 (06:22→23:56)
[2021-08-20 06:31] LABS: ALANINE AMINOTRANSFERASE 16 Units/L (12-78); ALBUMIN 2.8 g/dL (3.4-5.0); ALKALINE PHOSPHATASE 78 Units/L (46-116); ASPARTATE AMINO TRANSFERASE 19 Units/L (15-37); BLOOD UREA NITROGEN 16 mg/dL (7-18); CARBON DIOXIDE 25.4 mmol/L (21-32); CHLORIDE 103 mmol/L (98-107); COR NA(FOR HYPERGLY) 140 mmol/L (136-145); CREATININE 1.03 mg/dL (0.55-1.02); SODIUM 139 mmol/L (136-145); TOTAL PROTEIN 7.9 g/dL (6.4-8.2); eGFR NON BLACK RACES 56 (>60)
[2021-08-20 06:43] LABS: BAND NEUTROPHILS % 2 % (0-10); HYPOCHROMASIA SLIGHT; PLATELET MORPHOLOGY COMMENT NORMAL (NORMAL)
[2021-08-20] MEDS ORDERED: SALINE 3% 15 ML NEB TX ONE (08:45)
[2021-08-20] MEDS: DUONEB 0.5 MG/3 MG (3 mL) NEB SCH ×4 (08:45→20:50)
[2021-08-20] MEDS ORDERED: SALINE 3% 15 ML NEB TX NEB ONE (08:45)
[2021-08-20] MEDS: CARDIZEM CD 240 MG 24-HR PO SCH (09:36)
[2021-08-20] MEDS: COLACE CAP 100 MG PO SCH ×2 (09:36→21:44)
--- NOTE | 2021-08-20 13:14 | DR.H&P ---
H&P - History & Physical for Day of: H&P Date: 08/19/21 - Chief Complaint Chief Complaint: "FEELS BAD" ELEVATED BLOOD PRESSURE, "PEEING POOP" - History of Present Illness History of Present Illness: PT IS 71 BF RESIDENT OF [facility], ER ADMISSION WITH HYPERTENSIVE URGENCY, RLL PNEUMONIA AND UTI. PT REPORTS SHE HAD BEEN FEELING BAD SINCE LAST WEEK. CO LOOKS LIKE SHE IS "PEEING OUT POOP" WHEN SHE URINATES AND CO "NOT BREATHING WELL" PT HAD CTA LUNGS IN ER REVEALING PNEUMONIA. PT HAS PMH OF CAD, HTN, OA, HYPERLIPIDEMIA. PT ADMITTED FOR TREATMENT OF ACUTE ILLNESS. - Past Medical History Past Medical History: Coronary Artery Disease, Hypertension, Diabetes, Depression, Anxiety, Hypothyroidism, COPD, Arthritis, Migraines, CHF Additional Medical History: Congenital Heart Disease, Asthma, Fibroids, Muscle Weakness, Back Pain, Degenerative Disc Disease - Past Surgical History Surgical History: Cholecystectomy, Hysterectomy - Family History Family Medical History: Diabetes Mellitus, Cancer, [place], Coronary Artery Disease - Social History Does patient currently use any type of tobacco product: No Type of Tobacco Use: None Does any household member use tobacco: No Alcohol Use: None Drug Use: None Risks, benefits, and alternatives of opioids discussed: No Prescription drug monitoring program results: PDMP reviewed and no concerns identified - Medications Home Medications: morphine Allergy (Verified 08/06/20 13:53) rofecoxib [From Vioxx] Allergy (Verified 08/06/20 13:53) CONTINUE taking the following medications atropine 2 drp SUBLINGUAL Q2H PRN 08/19/21 [History] clonidine HCl 0.1 mg PO Q4H PRN 08/19/21 [History] diltiazem HCl 240 mg PO QAM 08/19/21 [History] docusate sodium [Colace] 100 mg PO BID 08/19/21 [History] fentanyl 1 patch TRANSDERMAL Q72H 08/19/21 [History] fentanyl 1 patch TRANSDERMAL Q72H 08/19/21 [History] ipratropium-albuterol 3 ml INHALATION QID 08/19/21 [History] magnesium hydroxide [Milk Of Magnesia Concentrated] 30 ml PO Q OTHER DAY 08/19/21 [History] - Review of Systems Constitutional: Weakness, Malaise Eyes: No Symptoms Reported ENT: No Symptoms Reported Respiratory: Cough, Shortness of Breath Cardiovascular: No Symptoms Reported Gastrointestinal: No Symptoms Reported Genitourinary: Dysuria, Frequency Musculoskeletal: Back Pain Skin: No Symptoms Reported Neurological: Weakness - Physical Exam Vital Signs: Temperature 98.9 F Pulse Rate 104 Respiratory Rate 16 Blood Pressure [Left Arm] 134/84 Blood Pressure 140/87 O2 Sat by Pulse Oximetry 98 Oriented: Normal Eyes: Normal Ear: Normal Nose: Normal Throat: Dry Respiratory: Wheezes Throughout (MILD UPPER EXPIRATORY WHEEZING), RML Diminis hed, RLL Diminished, LLL Diminished Cardiovascular: Normal : Dysuria Auscultation: Bowel Sounds: Normal Palpation: Normal Tenderness: Normal Skin: Decreased [place] Musculoskeletal: Normal Psychiatric: Normal Mood Description: Calm Speech Pattern: Clear, Appropriate - Assessment/Plan (1) Pneumonia Qualifiers: Qualified Code(s): J18.9 - Pneumonia, unspecified organism Status: Acute Plan: ADMIT, BLOOD, URINE AND SPUTUM CULTURE ON ADMISSION. GENTLE IV HYDRATION WITH STRICT I&OS. BP AND CARDIAC MONITORING. SUPPLEMENTAL O2 PRN, VERIFY HOME MEDICATION. IV ANTIBIOTICS (2) Urinary tract infection Qualifiers: Qualified Code(s): N39.0 - Urinary tract infection, site not specified Status: Acute (3) Hypertensive urgency Status: Acute (4) COPD (chronic obstructive pulmonary disease) Qualifiers: COPD type: unspecified COPD Qualified Code(s): J44.9 - Chronic obstructive pulmonary disease, unspecified Status: Chronic (5) CAD (coronary artery disease) Qualifiers: Coronary Disease-Associated Artery/Lesion type: [place] artery [place] vs. transplanted heart: [place] heart Associated angina: with unspecified angina Qualified Code(s): I25.119 - Atherosclerotic heart disease of [place] coronary artery with unspecified angina pectoris Status: Chronic (6) Hypertension Qualifiers: Hypertension type: primary hypertension Qualified Code(s): I10 - Essential (primary) hypertension Status: Chronic (7) Hypothyroidism Status: Chronic - Allergies Allergies/Adverse Reactions: Allergies Allergy/AdvReac Type Severity Reaction Status Date / Time morphine Allergy Verified 08/06/20 13:53 rofecoxib [From Vioxx] Allergy Verified 08/06/20 13:53
[2021-08-20 19:17] VITALS: BMI 24.8
[2021-08-20] MEDS: SNACK - Diabetic Appropriate PO SCH (20:56)
[2021-08-21] MEDS: ROCEPHIN 1 GRAM IV PREMIX 1 G/50 ML IV.SOLN. IV SCH (01:00)
[2021-08-21] MEDS: NS 1,000 ML IV 1,000 ML IV SCH (01:01)
[2021-08-21 05:58] LABS: BASOPHILS % (AUTO) 0.4 % (0.2-1.0); EOSINOPHILS % (AUTO) 0.2 % (0.9-2.9); HEMATOCRIT 29.1 % (36.0-47.0); HEMOGLOBIN 9.6 g/dL (12.0-16.0); LYMPHOCYTES # (AUTO) 1.4 X10^3/uL (1.3-2.9); LYMPHOCYTES % (AUTO) 17.8 % (21.0-51.0); MEAN CORPUSCULAR HEMOGLOBIN 26.4 pg (27.0-34.0); MEAN CORPUSCULAR HGB CONC 33.1 g/dL (33.0-35.0); MEAN CORPUSCULAR VOLUME 79.8 fL (80.0-100.0); MEAN PLATELET VOLUME 7.2 fL (7.4-11.0); MONOCYTES # (AUTO) 1.2 x10^3/uL (0.3-0.8); MONOCYTES % (AUTO) 15.7 % (0.0-13.0); NEUTROPHILS # (AUTO) 5.1 x10^3/uL (2.2-4.8); NEUTROPHILS % (AUTO) 65.9 % (42.0-75.0); RED BLOOD COUNT 3.65 X10^6/uL (3.5-5.4); RED CELL DISTRIBUTION WIDTH 13.9 % (11.6-16.5); WHITE BLOOD COUNT 7.7 X10^3/uL (3.6-10.0)
[2021-08-21 06:10] LABS: ALANINE AMINOTRANSFERASE 14 Units/L (12-78); ALBUMIN 2.5 g/dL (3.4-5.0); ALKALINE PHOSPHATASE 63 Units/L (46-116); ASPARTATE AMINO TRANSFERASE 16 Units/L (15-37); BLOOD UREA NITROGEN 23 mg/dL (7-18); CALCIUM 8.6 mg/dL (8.5-10.1); CARBON DIOXIDE 27.2 mmol/L (21-32); CHLORIDE 107 mmol/L (98-107); COR CA(FOR HYPOALB) 9.8 mg/dL (8.5-10.1); SODIUM 141 mmol/L (136-145); TOTAL PROTEIN 6.9 g/dL (6.4-8.2); eGFR NON BLACK RACES > 60 (>60)
--- NOTE | 2021-08-21 07:05 | RAD ---
HISTORYPneumoniaSTUDYPortable AP [id number]/06/2022FINDINGSHeart size and contour normal. The lungs are now essentially clear. There is no definite airspace or interstitial disease, hilar enlargement or significant pleural effusion. Stable position of left IJ port extending to the right atrium.IMPRESSIONNo acute pulmonary or pleural abnormality now demonstrated.Electronically signed by: ZAC AVENDANO (August 21, 2021 07:04:10)
[2021-08-21] MEDS: DUONEB 0.5 MG/3 MG (3 mL) NEB SCH ×4 (08:31→21:00)
[2021-08-21] MEDS: COLACE CAP 100 MG PO SCH ×2 (09:29→20:47)
[2021-08-21] MEDS: CARDIZEM CD 240 MG 24-HR PO SCH (09:29)
[2021-08-21] MEDS: ULTRAM PO PRN ×2 (13:43→18:44)
[2021-08-21] MEDS: SNACK - Diabetic Appropriate PO SCH (20:48)
[2021-08-21] MEDS ORDERED: VISTARIL PO PRN (20:57)
[2021-08-22] MEDS: ROCEPHIN 1 GRAM IV PREMIX 1 G/50 ML IV.SOLN. IV SCH (01:00)
[2021-08-22] MEDS: NS 1,000 ML IV 1,000 ML IV SCH (01:09)
[2021-08-22 06:14] LABS: BLOOD UREA NITROGEN 16 mg/dL (7-18); CALCIUM 8.6 mg/dL (8.5-10.1); CARBON DIOXIDE 26.1 mmol/L (21-32); CHLORIDE 107 mmol/L (98-107); CREATININE 0.78 mg/dL (0.55-1.02); SODIUM 141 mmol/L (136-145); eGFR NON BLACK RACES > 60 (>60)
[2021-08-22 06:17] LABS: BASOPHILS % (AUTO) 0.6 % (0.2-1.0); EOSINOPHILS # (AUTO) 0.5 x10^3/uL (0.0-0.2); HEMATOCRIT 27.9 % (36.0-47.0); HEMOGLOBIN 9.3 g/dL (12.0-16.0); LYMPHOCYTES # (AUTO) 2.1 X10^3/uL (1.3-2.9); MEAN CORPUSCULAR HEMOGLOBIN 26.9 pg (27.0-34.0); MEAN CORPUSCULAR HGB CONC 33.5 g/dL (33.0-35.0); MEAN CORPUSCULAR VOLUME 80.1 fL (80.0-100.0); MEAN PLATELET VOLUME 7.3 fL (7.4-11.0); MONOCYTES # (AUTO) 0.8 x10^3/uL (0.3-0.8); NEUTROPHILS # (AUTO) 3.1 x10^3/uL (2.2-4.8); NEUTROPHILS % (AUTO) 47.4 % (42.0-75.0); RED BLOOD COUNT 3.48 X10^6/uL (3.5-5.4); RED CELL DISTRIBUTION WIDTH 13.6 % (11.6-16.5); WHITE BLOOD COUNT 6.5 X10^3/uL (3.6-10.0)
[2021-08-22] MEDS ORDERED: MILK OF MAGNESIA PO PRN (06:44)
[2021-08-22] MEDS ORDERED: COLACE CAP 100 MG PO PRN (06:44)
[2021-08-22] MEDS: DUONEB 0.5 MG/3 MG (3 mL) NEB SCH (08:30)
[2021-08-22] MEDS ORDERED: LOVENOX INJ 40 MG SYR SC SCH (09:00)
[2021-08-22] MEDS: CARDIZEM CD 240 MG 24-HR PO SCH (09:15)
[2021-08-22 13:40] VITALS: BP 160/93
[2021-08-23 22:37] LABS: ALANINE AMINOTRANSFERASE 18 Units/L (12-78); ALBUMIN 2.4 g/dL (3.4-5.0); ALKALINE PHOSPHATASE 55 Units/L (46-116); ASPARTATE AMINO TRANSFERASE 19 Units/L (15-37); COR CA(FOR HYPOALB) 9.9 mg/dL (8.5-10.1); TOTAL PROTEIN 6.3 g/dL (6.4-8.2)
== END 2021-08-22 14:00 | DRG 177 ==
LOC: ER 14:45 → ICU 23:18 → MED/SURG 08-20 14:41
PROVIDERS: ADMIT Internal Medicine; ATTEND Internal Medicine
DX: I10 Essential (primary) hypertension; I25.110 Atherosclerotic heart disease of native coronary artery with unstable angina pectoris; B96.4 Proteus (mirabilis) (morganii) as the cause of diseases classified elsewhere; J96.22 Acute and chronic respiratory failure with hypercapnia; Z20.822 Contact with and (suspected) exposure to COVID-19; N39.0 Urinary tract infection, site not specified; E78.2 Mixed hyperlipidemia; I48.91 Unspecified atrial fibrillation; B96.29 Other Escherichia coli [E. coli] as the cause of diseases classified elsewhere; I16.0 Hypertensive urgency; E03.8 Other specified hypothyroidism; E11.65 Type 2 diabetes mellitus with hyperglycemia; J15.211 Pneumonia due to Methicillin susceptible Staphylococcus aureus; J44.1 Chronic obstructive pulmonary disease with (acute) exacerbation; M19.90 Unspecified osteoarthritis, unspecified site

== ENCOUNTER 2021-11-09 19:30 | Inpatient (IN) ==
[2021-11-09] MEDS ORDERED: DUONEB 0.5 MG/3 MG (3 mL) NEB ONE ×3 (19:54→23:25)
--- NOTE | 2021-11-09 19:54 | DR.SOBA ---
HPI Time Seen Time Seen by Provider: 11/09/21 19:51 HPI Comment HPI Comment: A 71 y/ofemale NHR presenting with 2 weeks of SOB. There is wheezing and the SOB is at rest. She denies chest pain or palpitations. She has no nausea. She states that she has had a couple of neb. treatments today at the [facility]. Reviewed Nurses Notes Reviewed: Yes Source History Provided: Patient Context Onset:: At Rest PE Risk Factors:: None History of:: COPD Currently on:: Neither Prehospital Care:: Inhaled B2 Modifying Factors Worsens:: Nothing Improves:: Nothing Associated Signs and Symptoms Associated Signs and Symptoms: Wheeze PMH PMH Past Medical History: Anxiety, Arthritis, CHF, COPD, Coronary Artery Disease, Depression, Diabetes, Migraines, Hypertension and Hypothyroidism Past Surgical History: Yes Surgical History: Cholecystectomy and Hysterectomy Family History Family Medical History: Diabetes Mellitus, Cancer, OR and Coronary Artery Disease Social History Do you use any recreational Drugs:: No ROS Review of Systems Constitutional: No Symptoms Reported Eyes: No Symptoms Reported ENTM: No Symptoms Reported Respiratoy: Short of Breath and Wheezing Cardiovascular: No Symptoms Reported Gastrointestinal/Abdominal: No Symptoms Reported Genitourinary: No Symptoms Reported Neurological: No Symptoms Reported Musculoskeletal: No Symptoms Reported Integumentary: No Symptoms Reported Hematologic/Lymphatic: No Symptoms Reported Endocrine: No Symptoms Reported Psychiatric: No Symptoms Reported All Other Systems: Reviewed and Negative PE Vital Signs Vitals: Temperature 99.4 F Pulse Rate 114 Respiratory Rate 28 Blood Pressure [Left Arm] 160/93 Blood Pressure 180/112 O2 Sat by Pulse Oximetry 99 General Limitations: No Limitations General Appearance: Alert and In No Apparent Distress Head Head Exam: Normal Inspection, Atraumatic and Normocephalic Eyes Eye exam: Normal Appearance and EOMI ENT ENT Exam: Normal Exam, Normal Oropharynx, Normal External Ear Exam and Mucous Membranes Moist Neck Neck Exam: Normal Inspection, Full ROM and Trachea Midline Chest Chest Inspection: Normal Inspection and Symmetric Chest Wall Rise Respiratory Respiratory Exam: Bilateral: Wheezing, Bilateral: Rhonchi and Bilateral: Crackles Cardiovascular Cardiovascular Exam: Regular Rate, Normal Rhythm, Normal Heart Sounds, +S1 and +S2 Abdominal Exam Abdominal Exam: Normal Inspection, Normal Bowel Sounds and Soft Extremities Extremities Exam: Normal Inspection and Full ROM Back Back Exam: Normal Inspection and Full ROM Neurologic Neurological Exam: Alert and Oriented X3 Psychiatric Psychiatric Exam: Normal Affect and Normal Mood Skin Skin Exam: Dry, Intact and Normal Color COURSE Treatment Treatment: Her s/s improved greatly with nasal suctioning and administration of Duoneb Jet neb. Her record review showed a leukocytosis of 19,000 on a CBC from early this morning. The BNP was 5+. I will obtain a U/A now to see if could yield a reason for the leukocytosis. I just found a CXR done at the [facility] this afternoon, it was read as showing multi-lobar infiltrates. She is being admited nd orders have been put in for admission. Reevaluation 1st: Improved ROR Labs Reviewed Laboratory: SARS-CoV-2 (PCR) Negative (NEGATIVE) 11/09/21 20:48 Influenza Type A (PCR) Negative (NEGATIVE) 11/09/21 20:48 Influenza Type B (PCR) Negative (NEGATIVE) 11/09/21 20:48 RSV (PCR) Negative (NEGATIVE) 11/09/21 20:48 Opioid Opioid Risk Tool Age (Can box if 16-45): No History of Preadolescent Sexual Abuse: No Total: 0 Total Score Risk Category: Low Risk Copyright: Miko CASIANO predicting aberrant behaviors Discharge Plan Diagnosis Discharge Problem: Lobar pneumonia COPD (chronic obstructive pulmonary disease) Qualifiers: COPD type: COPD with acute exacerbation Qualified Code(s): J44.1 - Chronic obstructive pulmonary disease with (acute) exacerbation CKD (chronic kidney disease) stage 3, GFR 30-59 ml/min Qualifiers: Chronic kidney disease stage 3 subtype: stage 3b (GFR 30-44) Qualified Code(s): N18.32 - Chronic kidney disease, stage 3b CAD (coronary artery disease) Qualifiers: Coronary Disease-Associated Artery/Lesion type: [place] artery [place] vs. transplanted heart: [place] heart Associated angina: with stable angina Qualified Code(s): I25.118 - Atherosclerotic heart disease of [place] coronary artery with other forms of angina pectoris Hypertension Qualifiers: Hypertension type: primary hypertension Qualified Code(s): I10 - Essential (primary) hypertension Hypothyroidism Qualifiers: Hypothyroidism type: acquired Qualified Code(s): E03.9 - Hypothyroidism, unspecified Discharge Plan Patient Disposition: ADMITTED INPATIENT Condition: Stable Orders to Discharge Patient Discharge Orders: Transfer (Routine); Ordered 11/09/21 Ordered By: BEHZAD REYEZ
[2021-11-09] MEDS ORDERED: SALINE 0.9% 3 ML NEB TX NEB ONE (20:03)
[2021-11-09] MEDS ORDERED: SALINE 0.9% 3 ML NEB TX ONE (20:05)
[2021-11-09] MEDS ORDERED: LEVAQUIN PREMIX IV 750 MG 750 MG/150 ML BAG IV ONE ×2 (21:13→21:39)
[2021-11-09] MEDS ORDERED: NS 100 ML IV 100 ML ONE (21:39)
[2021-11-09] MEDS ORDERED: PROVENTIL NEB TX 0.083% 2.5MG/ 3ML NEB PRN (22:13)
[2021-11-09] MEDS ORDERED: REFLEX: PROVENTIL NEB & PulmiCORT NEB~ NEB SCH (22:15)
[2021-11-09] MEDS ORDERED: SALINE 3% 15 ML NEB TX ONE ×2 (23:12→23:25)
[2021-11-09] MEDS ORDERED: SALINE 3% 15 ML NEB TX NEB ONE (23:30)
[2021-11-09] MEDS: DUONEB 0.5 MG/3 MG (3 mL) NEB SCH (23:30)
[2021-11-10] MEDS ORDERED: CATAPRES TAB 0.1 MG PO PRN (00:05)
[2021-11-10] MEDS ORDERED: DURAGESIC 100 mcg/HR PATCH TD SCH (00:05)
[2021-11-10] MEDS ORDERED: NovoLIN R (or HumuLIN R) SC SCH (00:05)
[2021-11-10] MEDS ORDERED: MAGNESIUM HYDROXIDE PO SCH (00:05)
[2021-11-10] MEDS ORDERED: [UNRECOGNIZED DRUG - OTHER] PO SCH (00:05)
[2021-11-10] MEDS ORDERED: NS 1/2 1,000 ML IV 1,000 ML IV ONE ×2 (00:16→20:30)
[2021-11-10] MEDS: NS IV SCH ×3 (00:31→22:00)
[2021-11-10] MEDS: DUONEB 0.5 MG/3 MG (3 mL) NEB SCH ×6 (00:50→20:20)
[2021-11-10] MEDS ORDERED: PHARMACY CONSULT LTC MEDICATIONS XX SCH (02:00)
[2021-11-10] MEDS: TYLENOL 325 MG TAB PO PRN (04:42)
[2021-11-10 04:45] LABS: BILIRUBIN,URINE NEGATIVE (NEGATIVE); BLOOD/HEMOGLOBIN,URINE 5+ (NEGATIVE); GLUCOSE, URINE NEGATIVE (NEGATIVE); KETONES,URINE NEGATIVE (NEGATIVE); LEUKOCYTE ESTERASE ,URINE 3+ (NEGATIVE); NITRITES,URINE POSITIVE (NEGATIVE); PROTEIN,URINE 2+ (NEGATIVE); UROBILINOGEN,URINE NORMAL (NORMAL)
[2021-11-10 04:56] LABS: BASOPHILS % (AUTO) 0.2 % (0.2-1.0); EOSINOPHILS # (AUTO) 0.5 x10^3/uL (0.0-0.2); EOSINOPHILS % (AUTO) 2.5 % (0.9-2.9); LYMPHOCYTES # (AUTO) 2.4 X10^3/uL (1.3-2.9); LYMPHOCYTES % (AUTO) 11.1 % (21.0-51.0); MEAN CORPUSCULAR HEMOGLOBIN 25.4 pg (27.0-34.0); MEAN CORPUSCULAR HGB CONC 32.3 g/dL (33.0-35.0); MEAN CORPUSCULAR VOLUME 78.8 fL (80.0-100.0); MEAN PLATELET VOLUME 6.8 fL (7.4-11.0); MONOCYTES # (AUTO) 0.9 x10^3/uL (0.3-0.8); MONOCYTES % (AUTO) 4.4 % (0.0-13.0); NEUTROPHILS # (AUTO) 17.4 x10^3/uL (2.2-4.8); NEUTROPHILS % (AUTO) 81.8 % (42.0-75.0); RED BLOOD COUNT 3.55 X10^6/uL (3.5-5.4); RED CELL DISTRIBUTION WIDTH 16.6 % (11.6-16.5); WHITE BLOOD COUNT 21.3 X10^3/uL (3.6-10.0)
[2021-11-10 05:01] LABS: APPEARANCE,URINE TURBID (CLEAR); BACTERIA,URINE 2+ /HPF (NEGATIVE); COLOR,URINE YELLOW (YELLOW); SQUAMOUS EPITHELIAL CELL,UR FEW /HPF (NEGATIVE)
[2021-11-10 05:02] LABS: OTHER CASTS, URINE FEW /LPF (NEGATIVE)
[2021-11-10 05:10] LABS: ALANINE AMINOTRANSFERASE 18 Units/L (12-78); ALBUMIN 2.5 g/dL (3.4-5.0); ALKALINE PHOSPHATASE 76 Units/L (46-116); ASPARTATE AMINO TRANSFERASE 11 Units/L (15-37); BLOOD UREA NITROGEN 16 mg/dL (7-18); CALCIUM 8.4 mg/dL (8.5-10.1); CARBON DIOXIDE 27.5 mmol/L (21-32); CHLORIDE 104 mmol/L (98-107); COR CA(FOR HYPOALB) 9.6 mg/dL (8.5-10.1); CREATININE 0.86 mg/dL (0.55-1.02); SODIUM 139 mmol/L (136-145); TOTAL PROTEIN 6.6 g/dL (6.4-8.2); eGFR NON BLACK RACES > 60 (>60)
[2021-11-10 05:26] LABS: BAND NEUTROPHILS % 1 % (0-10); METAMYELOCYTES % 1
[2021-11-10 05:27] LABS: ANISOCYTOSIS SLIGHT; HYPOCHROMASIA SLIGHT; MICROCYTOSIS SLIGHT; PLATELET MORPHOLOGY COMMENT NORMAL (NORMAL)
[2021-11-10 05:29] LABS: SCHISTOCYTES PRESENT
--- NOTE | 2021-11-10 05:49 | RAD ---
HISTORYPNEUMONIA Relevant Clinical InformationSTUDYCHEST, 1 [id number]/27/2022FINDINGSThe trachea is midline. Left Port-A-Cath tip in right atrium. The cardiac silhouette is unremarkable. Increased interstitial markings and hazy alveolar densities within the right lung and left lower lobe.. The bony thorax is unremarkable.IMPRESSIONStable portable chest.Electronically signed by: Luis A Mayers (Nov 10, 2021 05:47:52)
[2021-11-10] MEDS ORDERED: ZOSYN VIAL 4.5 GRAMS 4.5 G in NS 100 ML IV + SPIKE MINIBAG* 100 ML IV SCH (06:00)
[2021-11-10] MEDS ORDERED: ZOSYN VIAL 4.5 GRAMS IV ONE (06:19)
[2021-11-10] MEDS ORDERED: NS 100 ML IV 100 ML ONE (06:20)
[2021-11-10] MEDS: SOLU-Medrol 40 MG VIAL IVP SCH ×3 (06:33→22:19)
[2021-11-10] MEDS: CARDIZEM CD 240 MG 24-HR PO SCH (08:08)
[2021-11-10] MEDS: ROBITUSSIN DM PO SCH ×4 (08:09→21:00)
[2021-11-10] MEDS: MILK OF MAGNESIA PO SCH (08:09)
[2021-11-10] MEDS: COLACE CAP 100 MG PO SCH ×2 (08:09→20:59)
[2021-11-10] MEDS: VSL#3 PO SCH (08:12)
[2021-11-10] MEDS: TUSSIONEX PENNKINETIC SUSP PO PRN (08:36)
[2021-11-10] MEDS ORDERED: GLYCOPYRROLATE FORMOTEROL IN SCH (09:00)
[2021-11-10] MEDS ORDERED: DUONEB 0.5 MG/3 MG (3 mL) NEB SCH (09:00)
[2021-11-10] MEDS: PULMICORT NEB TX 0.5 MG NEB SCH ×2 (09:53→20:20)
[2021-11-10] MEDS: DIFLUCAN 200 MG IV PREMIX* 200 MG/100 ML BAG IV SCH (11:41)
[2021-11-10] MEDS: VOLTAREN 1 % GEL MULTI DOSE TUBE TOP SCH ×2 (11:41→21:41)
[2021-11-10] MEDS: NORCO 7.5/325 MG TAB PO SCH ×4 (11:42→21:00)
[2021-11-10] MEDS: ZOSYN VIAL 4.5 GRAMS 4.5 G in NS 100 ML IV 100 ML IV SCH ×2 (13:54→22:19)
[2021-11-10] MEDS ORDERED: NS 250 ML IV 250 ML IV ONE (13:57)
[2021-11-10] MEDS ORDERED: NovoLIN R (or HumuLIN R) ONE (16:20)
[2021-11-10] MEDS: NovoLIN R (or HumuLIN R) SC PRN ×2 (16:22→20:53)
--- NOTE | 2021-11-10 19:42 | DR.H&P ---
H&P - History & Physical for Day of: H&P Date: 11/09/21 - Chief Complaint Chief Complaint: COUGH, SOB, WHEEZING - History of Present Illness History of Present Illness: IS A 71 YEAR OLD PATIENT OF OURS. SHE IS A RESIDENT OF [facility]. SHE PRESENTED TO THE ER WITH COMPLAINTS OF SHORTNESS OF BREATH, COUGH, AND WHEEZING. SYMPTOMS STARTED APRROXIMATELY TWO WEEKS AGO. PATIENT REPORTS THAT COUGH HAS BEEN NON-PRODUCTIVE UNTIL THE PAST TWO DAYS. SHE HAS APPARENTLY BEEN USING NEBULIZER TREATMENTS OVER AT THE CUSTODIAL WITHOUT IMPROVEMENT IN SYMPTOMS. AUSCULTATION OF LUNG MEDINA REVEALED SCATTERED WHEEZING. HER PMH INCLUDES: CAD, MD, HYPERTENSION, COPD, GERD, UTIs, DM II, ANXIETY, DEPRESSION, CHOLECYSTECTOMY, HYSTERECTOMY, RIGHT HIP REPLACEMENT, RIGHT SHOULDER REPLACEMENT. ON ARRIVAL TO THE ER, VITALS WERE: 99.4-122-24-98%-136/91. SHE WAS ON NASAL CANNULA AT 2 LPM. LABS WERE OBTAINED. WBC 21.3, RBC 3.55, HGB 9.0, HCT 28.0, PLT COUNT 457, SODIUM 139, POTASSIUM 3.9, CHLORIDE 104, BUN 16, CREATININE 0.86, GLUCOSE 89, CALCIUM 8.4, TOTAL BILI 0.30, AST 11, ALT 18, ALK PHOS 76, TOTAL PROTEIN 6.6, ALBUMIN 2.5. A URINALYSIS WAS OBTAINED AND REVEALED: WBC 30-50, RBC 10-20, LEUKOCYTES 3+, BACTERIA 2+, MUCUS MODERATE, NITRITE POSITIVE, BLOOD 5+. COVID, INFLUENZA, AND RSV NEGATIVE. A CHEST XRAY WAS OBTAINED AND REVEALED: The trachea is midline. Left Port-A-Cath tip in right atrium. The cardiac silhouette is unremarkable. Increased interstitial markings and hazy alveolar densities within the right lung and left lower lobe. The bony thorax is unremarkable. BLOOD, SPUTUM AND URINE CULTURES WERE SET UP. SHE WAS ADMITTED TO THE HOSPITAL FOR FURTHER EVALUATION AND TREATMENT OF MULTILOBAR PNEUMONIA, COPD EXACERBATION, AND URINARY TRACT INFECTION. SHE WAS STARTED ON 1/2NS AT 75 ML/HR, LEVAQUIN 750MG IV DAILY, ZOSYN 4.5G IV TID, DIFLUCAN 200MG IV DAILY, DUONEBS Q4H, PULMICORT NEBS BID, SOLU- MEDROL 80MG IV Q8H, TUSSIONEX 5ML PO Q12H PRN, OTBS ACHS, HUMULIN R SLIDING SCALE, VSL 2 CAPSULES DAILY, ROBITUSSIN DM 10ML PO QID, AND HER HOME MEDICATIONS WERE RESUMED. OTHERWISE, WE PLAN TO FOLLOW-UP WITH AM LABS AND XRAY AND CONTINUE TO [facility]. TIME SPENT ON CLINICAL ASSESSMENT, REVIEWING LABS AND IMAGING, DECISION MAKING, AND DOCUMENTATION GREATER THAN 75 MINUTES. - Past Medical History Past Medical History: Coronary Artery Disease, Hypertension, Diabetes, Depression, Anxiety, Hypothyroidism, COPD, Arthritis, Migraines, CHF Additional Medical History: Congenital Heart Disease, Asthma, Fibroids, Muscle Weakness, Back Pain, Degenerative Disc Disease - Past Surgical History Surgical History: Cholecystectomy, Hysterectomy - Family History Family Medical History: Diabetes Mellitus, Hypertension - Social History Does patient currently use any type of tobacco product: No Have you used tobacco products in the last 12 months: No Type of Tobacco Use: None Does any household member use tobacco: No Alcohol Use: None Drug Use: None - Medications Home Medications: morphine Allergy (Verified 08/06/20 13:53) rofecoxib [From Vioxx] Allergy (Verified 08/06/20 13:53) CONTINUE taking the following medications glycopyrrolate 9 mcg-formoterol 4.8 mcg HFA aerosol inhaler (Bevespi Aerosphere) 2 puff inhalation BID 11/09/21 [History] alprazolam 0.25 mg tablet (Xanax) 0.25 mg PO TID 11/10/21 [History] diclofenac sodium 1 % topical gel 1 g topical BID 11/10/21 [History] gabapentin 100 mg capsule 100 mg PO QHS 11/10/21 [History] hydrocodone 7.5 mg-acetaminophen 325 mg tablet 1 tab PO QID 11/10/21 [History] - Review of Systems Constitutional: Weakness Eyes: No Symptoms Reported ENT: No Symptoms Reported Respiratory: Cough, Shortness of Breath, SOB with Excertion, Wheezing Cardiovascular: No Symptoms Reported Gastrointestinal: No Symptoms Reported Genitourinary: No Symptoms Reported Musculoskeletal: No Symptoms Reported Skin: No Symptoms Reported Neurological: Weakness - Physical Exam Vital Signs: Temperature 98.4 F Pulse Rate 91 Respiratory Rate 22 Blood Pressure [Left Arm] 160/91 Blood Pressure 134/76 O2 Sat by Pulse Oximetry 100 Oriented: Normal Eyes: Normal Ear: Normal Nose: Normal Throat: Normal Respiratory: Wheezes Throughout Cardiovascular: Tachycardia : Normal Auscultation: Bowel Sounds: Normal Palpation: Normal Tenderness: Normal Skin: Normal Musculoskeletal: Normal Psychiatric: Normal Mood Description: Calm Affect: Normal Speech Pattern: Clear - Assessment/Plan (1) Lobar pneumonia Status: Acute Plan: ADMIT, SUPPLEMENTAL OXYGEN, 1/2NS AT 75 ML/HR, LEVAQUIN 750MG IV DAILY, ZOSYN 4.5G IV TID, DIFLUCAN 200MG IV DAILY, DUONEBS Q4H, PULMICORT NEBS BID, SOLU-MEDROL 80MG IV Q8H, TUSSIONEX 5ML PO Q12H PRN, OTBS ACHS, HUMULIN R SLIDING SCALE, VSL 2 CAPSULES DAILY, ROBITUSSIN DM 10ML PO QID, AND HER HOME MEDICATIONS WERE RESUMED. (2) Acute exacerbation of chronic obstructive pulmonary disease Status: Acute (3) UTI (urinary tract infection) Qualifiers: Urinary tract infection type: acute cystitis Hematuria presence: with hematuria Qualified Code(s): N30.01 - Acute cystitis with hematuria Status: Acute (4) Weakness Status: Acute (5) CAD (coronary artery disease) Qualifiers: Coronary Disease-Associated Artery/Lesion type: [place] artery [place] vs. transplanted heart: [place] heart Associated angina: with stable angina Qualified Code(s): I25.118 - Atherosclerotic heart disease of [place] coronary artery with other forms of angina pectoris Status: Chronic (6) CKD (chronic kidney disease) stage 3, GFR 30-59 ml/min Qualifiers: Chronic kidney disease stage 3 subtype: stage 3b (GFR 30-44) Qualified Code(s): N18.32 - Chronic kidney disease, stage 3b Status: Chronic (7) Hypertension Qualifiers: Hypertension type: primary hypertension Qualified Code(s): I10 - Essential (primary) hypertension Status: Chronic (8) Hypothyroidism Qualifiers: Hypothyroidism type: acquired Qualified Code(s): E03.9 - Hypothyroidism, unspecified Status: Chronic - Allergies Allergies/Adverse Reactions: Allergies Allergy/AdvReac Type Severity Reaction Status Date / Time morphine Allergy Verified 08/06/20 13:53 rofecoxib [From Vioxx] Allergy Verified 08/06/20 13:53
[2021-11-10] MEDS: LEVAQUIN PREMIX IV 750 MG 750 MG/150 ML BAG IV SCH (20:36)
[2021-11-10] MEDS: XANAX PO PRN (20:54)
[2021-11-10] MEDS: SNACK - Diabetic Appropriate PO SCH ×2 (20:59→23:08)
[2021-11-10] MEDS: NEURONTIN CAP 100 MG PO SCH (21:00)
[2021-11-11] MEDS: DUONEB 0.5 MG/3 MG (3 mL) NEB SCH ×6 (00:18→21:20)
[2021-11-11] MEDS: SOLU-Medrol 40 MG VIAL IVP SCH ×3 (05:46→21:30)
[2021-11-11] MEDS: ZOSYN VIAL 4.5 GRAMS 4.5 G in NS 100 ML IV 100 ML IV SCH ×3 (05:47→22:30)
[2021-11-11 05:53] LABS: BASOPHILS % (AUTO) 0.1 % (0.2-1.0); HEMATOCRIT 26.8 % (36.0-47.0); HEMOGLOBIN 8.8 g/dL (12.0-16.0); LYMPHOCYTES # (AUTO) 0.6 X10^3/uL (1.3-2.9); LYMPHOCYTES % (AUTO) 4.5 % (21.0-51.0); MEAN CORPUSCULAR HEMOGLOBIN 25.7 pg (27.0-34.0); MEAN CORPUSCULAR HGB CONC 32.9 g/dL (33.0-35.0); MEAN CORPUSCULAR VOLUME 78.1 fL (80.0-100.0); MEAN PLATELET VOLUME 6.9 fL (7.4-11.0); MONOCYTES # (AUTO) 0.3 x10^3/uL (0.3-0.8); MONOCYTES % (AUTO) 1.9 % (0.0-13.0); NEUTROPHILS % (AUTO) 93.5 % (42.0-75.0); RED BLOOD COUNT 3.43 X10^6/uL (3.5-5.4); RED CELL DISTRIBUTION WIDTH 16.5 % (11.6-16.5); WHITE BLOOD COUNT 13.9 X10^3/uL (3.6-10.0)
[2021-11-11 06:07] LABS: ALANINE AMINOTRANSFERASE 21 Units/L (12-78); ALBUMIN 2.5 g/dL (3.4-5.0); ALKALINE PHOSPHATASE 85 Units/L (46-116); ASPARTATE AMINO TRANSFERASE 12 Units/L (15-37); BLOOD UREA NITROGEN 19 mg/dL (7-18); CALCIUM 8.5 mg/dL (8.5-10.1); CARBON DIOXIDE 28.1 mmol/L (21-32); CHLORIDE 103 mmol/L (98-107); COR CA(FOR HYPOALB) 9.7 mg/dL (8.5-10.1); COR NA(FOR HYPERGLY) 140 mmol/L (136-145); CREATININE 0.99 mg/dL (0.55-1.02); SODIUM 138 mmol/L (136-145); TOTAL PROTEIN 6.9 g/dL (6.4-8.2); eGFR NON BLACK RACES 58 (>60)
--- NOTE | 2021-11-11 06:07 | RAD ---
HISTORYSOB Relevant Clinical InformationSTUDYCHEST, 1 [id number]/28/2022FINDINGSThe trachea is midline. Left Port-A-Cath tip in right atrium. the cardiac silhouette is unremarkable. Mild increased interstitial markings throughout the lungs unchanged. No pleural effusion or pneumothorax. The bony thorax is unremarkable.IMPRESSIONStable portable chest.Electronically signed by: Luis A Mayers (Nov 11, 2021 06:06:02)
[2021-11-11 06:19] LABS: PLATELET MORPHOLOGY COMMENT NORMAL (NORMAL)
[2021-11-11 06:20] LABS: HYPOCHROMASIA SLIGHT; MICROCYTOSIS SLIGHT
[2021-11-11] MEDS: NovoLIN R (or HumuLIN R) SC PRN ×2 (06:24→14:36)
[2021-11-11] MEDS: PULMICORT NEB TX 0.5 MG NEB SCH ×2 (08:00→21:20)
[2021-11-11] MEDS: CARDIZEM CD 240 MG 24-HR PO SCH (08:01)
[2021-11-11] MEDS: DIFLUCAN 200 MG IV PREMIX* 200 MG/100 ML BAG IV SCH (08:02)
[2021-11-11] MEDS: VOLTAREN 1 % GEL MULTI DOSE TUBE TOP SCH ×2 (08:02→21:00)
[2021-11-11] MEDS: COLACE CAP 100 MG PO SCH ×2 (08:02→21:30)
[2021-11-11] MEDS: ROBITUSSIN DM PO SCH ×4 (08:02→21:30)
[2021-11-11] MEDS: NORCO 7.5/325 MG TAB PO SCH ×4 (08:03→21:00)
[2021-11-11] MEDS: VSL#3 PO SCH (08:03)
[2021-11-11] MEDS: TUSSIONEX PENNKINETIC SUSP PO PRN (08:07)
[2021-11-11] MEDS: XANAX PO PRN ×2 (08:47→14:36)
[2021-11-11] MEDS ORDERED: NS 1/2 1,000 ML IV 1,000 ML IV ONE (14:28)
[2021-11-11] MEDS: NS IV SCH ×2 (14:36→17:35)
--- NOTE | 2021-11-11 18:37 | PCM.PROG ---
Progress Note - Progress Note for Day of Date of Exam: 11/11/21 - Subjective Subjective: IS CURRENTLY INPATIENT STATUS FOR TREATMENT OF MULTILOBAR PNEUMONIA, COPD EXACERBATION, UTI, AND GENERALIZED WEAKNESS. TODAY, SHE IS LYING IN BED WITH EYES CLOSED ON MORNING ROUNDS. SHE AWAKENS TO VERBAL STIMULI. SHE COMPLAINS OF SHORTNESS OF BREATH AND COUGH. SHE IS CURRENTLY UTILIZING OXYGEN VIA NASAL CANNUAL AT 2 LPM. SATURATIONS HAVE BEEN IN THE 90s. ON EXAMINATION, SHE IS TACHYCARDIC WITH HR 110-120 BPM. EXPIRATORY WHEEZING NOTED ON AUSCULTATION. ABDOMEN IS ROUND, SOFT, AND NON-TENDER WITH NORMAL BOWEL SOUNDS NOTED IN ALL QUADRANTS. NO UPPER OR LOWER EXTREMITY EDEMA NOTED. HER VITALS THIS MORNING ARE: 99.2-589-37-100%-149/80. LABS WERE OBTAINED. WBC 13.9, RBC 3.43, HGB 8.8, HCT 26.8, PLT COUNT 458, SODIUM 138, POTASSIUM 3.9, BUN 19, CREATININE 0.99, GLUCOSE 199, CALCIUM 8.5, AST 12, ALT 21, ALK PHOS 85, TOTAL PROTEIN 6.9, ALBUMIN 2.5. URINE, SPUTUM, AND BLOOD CULTURES ARE PENDING. A CHEST XRAY WAS OBTAINED AND REVEALED: The trachea is midline. Left Port-A-Cath tip in right atrium. the cardiac silhouette is unremarkable. Mild increased interstitial markings throughout the lungs unchanged. No pleural effusion or pneumothorax. The bony thorax is unremarkable. SHE IS CURRENTLY RECEIVING 1/2NS AT 75 ML/HR, LEVAQUIN 750MG IV DAILY, ZOSYN 4.5G IV TID, DIFLUCAN 200MG IV DAILY, DUONEBS Q4H, PULMICORT NEBS BID, SOLU-MEDROL 80MG IV Q8H, TUSSIONEX 5ML PO Q12H PRN, O TBS ACHS, HUMULIN R SLIDING SCALE, VSL 2 CAPSULES DAILY, ROBITUSSIN DM 10ML PO QID, AND HER HOME MEDICATIONS WERE RESUMED. WE WILL CONTINUE WITH CURRENT PLAN OF CARE TODAY. OTHERWISE, WE WILL FOLLOW-UP WITH AM LABS AND CONTINUE TO MONITOR. TIME SPENT ON CLINICAL ASSESSMENT, REVIEWING LABS AND IMAGING, DECISION MAKING, AND DOCUMENTATION GREATER THAN 45 MINUTES. - Past Medical Family Social History Past Med/Fam/Surg Hx: No changes since H&P Allergies: Allergies morphine Allergy (Verified 08/06/20 13:53) rofecoxib [From Vioxx] Allergy (Verified 08/06/20 13:53) - Review of Systems ROS: No change since H&P - Vital Signs and I&O's Vital Signs: Temperature 97.5 F Pulse Rate 91 Respiratory Rate 24 Blood Pressure [Left Arm] 160/91 Blood Pressure 149/62 O2 Sat by Pulse Oximetry 100 Intake and Output: Intake & Output 11/09/21 11/10/21 11/11/21 11/12/21 11:59 11:59 11:59 11:59 Intake Total 580 / 580 3689 / 3689 1413 / 1413 Balance 580 / 580 3689 / 3689 1413 / 1413 - Physical Exam Oriented: Normal Eyes: Normal Ear: Normal Nose: Normal Throat: Normal Respiratory: Generalized, Diminished Cardiovascular: Tachycardia : Normal Auscultation: Bowel Sounds: Normal Palpation: Normal Tenderness: Normal Skin: Normal Musculoskeletal: Normal Psychiatric: Normal Mood Description: Calm Affect: Normal Speech Pattern: Clear, Appropriate - Laboratory and Diagnostics Result Diagrams: 11/11/21 05:09 11/11/21 05:09 Labs: 11/10/21 04:11 Urine,Catheterized Urine Culture - Preliminary 11/10/21 00:01 Sputum - Expectorated Sputum Sputum Culture - Preliminary 11/10/21 00:01 Sputum - Expectorated Sputum - Final 11/09/21 21:30 Blood Blood Culture - Preliminary 11/09/21 21:21 Blood Blood Culture - Preliminary Laboratory WBC 13.9 X10^3/uL (3.6-10.0) H 11/11/21 05:09 RBC 3.43 X10^6/uL (3.5-5.4) L 11/11/21 05:09 Hgb 8.8 g/dL (12.0-16.0) L 11/11/21 05:09 Hct 26.8 % (36.0-47.0) L 11/11/21 05:09 MCV 78.1 fL (80.0-100.0) L 11/11/21 05:09 MCH 25.7 pg (27.0-34.0) L 11/11/21 05:09 MCHC 32.9 g/dL (33.0-35.0) L 11/11/21 05:09 RDW 16.5 % (11.6-16.5) 11/11/21 05:09 Plt Count 458 X10^3/uL (150.0-450.0) H 11/11/21 05:09 Plt Count Comment Increased (ADEQUATE) A 11/11/21 05:09 MPV 6.9 fL (7.4-11.0) L 11/11/21 05:09 Neut % (Auto) 93.5 % (42.0-75.0) H 11/11/21 05:09 Lymph % (Auto) 4.5 % (21.0-51.0) L 11/11/21 05:09 Barron % (Auto) 1.9 % (0.0-13.0) 11/11/21 05:09 Eos % (Auto) 0.0 % (0.9-2.9) L 11/11/21 05:09 Baso % (Auto) 0.1 % (0.2-1.0) L 11/11/21 05:09 Neut # (Auto) 13.0 x10^3/uL (2.2-4.8) H 11/11/21 05:09 Lymph # (Auto) 0.6 X10^3/uL (1.3-2.9) L 11/11/21 05:09 Barron # (Auto) 0.3 x10^3/uL (0.3-0.8) 11/11/21 05:09 Eos # (Auto) 0.0 x10^3/uL (0.0-0.2) 11/11/21 05:09 Baso # (Auto) 0.0 X10^3/uL (0.0-0.1) 11/11/21 05:09 Absolute Nucleated RBC 0.1 /100WBC 11/11/21 05:09 Total Counted 100 11/11/21 05:09 Neutrophils % (Manual) 92 % (39-76) H 11/11/21 05:09 Band Neutrophils % 1 % (0-10) 11/10/21 04:25 Lymphocytes % (Manual) 6 % (13-43) L 11/11/21 05:09 Monocytes % (Manual) 2 % (4-9) L 11/11/21 05:09 Eosinophils % (Manual) 3 % (0-6) 11/10/21 04:25 Metamyelocytes % 1 11/10/21 04:25 Atypical Lymphocytes Few A 11/10/21 04:25 Plt Morphology Comment Normal (NORMAL) 11/11/21 05:09 RBC Morphology Abnormal (NORMAL) A 11/11/21 05:09 Hypochromasia Slight A 11/11/21 05:09 Anisocytosis Slight A 11/10/21 04:25 Microcytosis Slight A 11/11/21 05:09 Schistocytes Present 11/10/21 04:25 Sodium 138 mmol/L (136-145) 11/11/21 05:09 Corrected Sodium 140 mmol/L (136-145) 11/11/21 05:09 Potassium 3.9 mmol/L (3.5-5.1) 11/11/21 05:09 Chloride 103 mmol/L (98-107) 11/11/21 05:09 Carbon Dioxide 28.1 mmol/L (21-32) 11/11/21 05:09 BUN 19 mg/dL (7-18) H 11/11/21 05:09 Creatinine 0.99 mg/dL (0.55-1.02) 11/11/21 05:09 Est GFR (MDRD) Af Amer > 60 (>60) 11/11/21 05:09 Est GFR (MDRD) Non-Af 58 (>60) L 11/11/21 05:09 Glucose 199 mg/dL (65-99) H 11/11/21 05:09 POC Glucose (mg/dL) 206 mg/dL (65-99) H 11/11/21 17:16 Calcium 8.5 mg/dL (8.5-10.1) 11/11/21 05:09 Corrected Calcium 9.7 mg/dL (8.5-10.1) 11/11/21 05:09 Total Bilirubin 0.20 mg/dL (0.2-1.0) 11/11/21 05:09 AST 12 Units/L (15-37) L 11/11/21 05:09 ALT 21 Units/L (12-78) 11/11/21 05:09 Alkaline Phosphatase 85 Units/L (46-116) 11/11/21 05:09 Total Protein 6.9 g/dL (6.4-8.2) 11/11/21 05:09 Albumin 2.5 g/dL (3.4-5.0) L 11/11/21 05:09 Globulin 4.4 g/dL (2.5-4.5) 11/11/21 05:09 Albumin/Globulin Ratio 0.6 Ratio (1.1-2.1) L 11/11/21 05:09 Specimen Type Catherized urine 11/10/21 04:11 Urine Color Yellow (YELLOW) 11/10/21 04:11 Urine Appearance Turbid (CLEAR) 11/10/21 04:11 Urine pH 6.0 (5.0 - 8.0) 11/10/21 04:11 Ur Specific Hardy 1.010 (1.000-1.030) 11/10/21 04:11 Urine Protein 2+ (NEGATIVE) 11/10/21 04:11 Urine Glucose (UA) Negative (NEGATIVE) 11/10/21 04:11 Urine Ketones Negative (NEGATIVE) 11/10/21 04:11 Urine Blood 5+ (NEGATIVE) 11/10/21 04:11 Urine Nitrite Positive (NEGATIVE) 11/10/21 04:11 Urine Bilirubin Negative (NEGATIVE) 11/10/21 04:11 Urine Urobilinogen Normal (NORMAL) 11/10/21 04:11 Ur Leukocyte Esterase 3+ (NEGATIVE) 11/10/21 04:11 Urine RBC 10-20 /HPF (0-3) A 11/10/21 04:11 Urine WBC 30-50 /HPF (0-5) A 11/10/21 04:11 Ur Squamous Epith Cells Few /HPF (NEGATIVE) 11/10/21 04:11 Amorphous Sediment 1+ /HPF (NEGATIVE) 11/10/21 04:11 Urine Bacteria 2+ /HPF (NEGATIVE) 11/10/21 04:11 Other Casts Few /LPF (NEGATIVE) 11/10/21 04:11 Urine Mucus Moderate /HPF (NEGATIVE) 11/10/21 04:11 Ur Culture Indicated? Yes/culture set up 11/10/21 04:11 SARS-CoV-2 (PCR) Negative (NEGATIVE) 11/09/21 20:48 Influenza Type A (PCR) Negative (NEGATIVE) 11/09/21 20:48 Influenza Type B (PCR) Negative (NEGATIVE) 11/09/21 20:48 RSV (PCR) Negative (NEGATIVE) 11/09/21 20:48 - Plan (1) Lobar pneumonia Status: Acute Plan: SUPPLEMENTAL OXYGEN, 1/2NS AT 75 ML/HR, LEVAQUIN 750MG IV DAILY, ZOSYN 4.5G IV TID, DIFLUCAN 200MG IV DAILY, DUONEBS Q4H, PULMICORT NEBS BID, SOLU- MEDROL 80MG IV Q8H, TUSSIONEX 5ML PO Q12H PRN, OTBS ACHS, HUMULIN R SLIDING SCALE, VSL 2 CAPSULES DAILY, ROBITUSSIN DM 10ML PO QID, AND HER HOME MEDICATIONS WERE RESUMED. (2) Acute exacerbation of chronic obstructive pulmonary disease Status: Acute (3) UTI (urinary tract infection) Status: Acute Qualifiers: Urinary tract infection type: acute cystitis Hematuria presence: with hematuria Qualified Code(s): N30.01 - Acute cystitis with hematuria (4) Weakness Status: Acute (5) CAD (coronary artery disease) Status: Chronic Qualifiers: Coronary Disease-Associated Artery/Lesion type: [place] artery [place] vs. transplanted heart: [place] heart Associated angina: with stable angina Qualified Code(s): I25.118 - Atherosclerotic heart disease of [place] coronary artery with other forms of angina pectoris (6) CKD (chronic kidney disease) stage 3, GFR 30-59 ml/min Status: Chronic Qualifiers: Chronic kidney disease stage 3 subtype: stage 3b (GFR 30-44) Qualified Code(s): N18.32 - Chronic kidney disease, stage 3b (7) Hypertension Status: Chronic Qualifiers: Hypertension type: primary hypertension Qualified Code(s): I10 - Essential (primary) hypertension (8) Hypothyroidism Status: Chronic Qualifiers: Hypothyroidism type: acquired Qualified Code(s): E03.9 - Hypothyroidism, unspecified
[2021-11-11] MEDS: SNACK - Diabetic Appropriate PO SCH (21:00)
[2021-11-11] MEDS: LEVAQUIN PREMIX IV 750 MG 750 MG/150 ML BAG IV SCH (21:00)
[2021-11-11] MEDS ORDERED: NS 100 ML IV 100 ML ONE (21:23)
[2021-11-11] MEDS: NEURONTIN CAP 100 MG PO SCH (21:30)
[2021-11-12] MEDS: DUONEB 0.5 MG/3 MG (3 mL) NEB SCH ×6 (01:10→21:45)
[2021-11-12 05:45] LABS: BASOPHILS # (AUTO) 0.1 X10^3/uL (0.0-0.1); BASOPHILS % (AUTO) 0.5 % (0.2-1.0); HEMATOCRIT 25.4 % (36.0-47.0); HEMOGLOBIN 8.4 g/dL (12.0-16.0); LYMPHOCYTES # (AUTO) 0.3 X10^3/uL (1.3-2.9); LYMPHOCYTES % (AUTO) 2.6 % (21.0-51.0); MEAN CORPUSCULAR HEMOGLOBIN 25.9 pg (27.0-34.0); MEAN CORPUSCULAR HGB CONC 32.9 g/dL (33.0-35.0); MEAN CORPUSCULAR VOLUME 78.7 fL (80.0-100.0); MEAN PLATELET VOLUME 6.9 fL (7.4-11.0); MONOCYTES # (AUTO) 0.7 x10^3/uL (0.3-0.8); MONOCYTES % (AUTO) 5.3 % (0.0-13.0); NEUTROPHILS # (AUTO) 11.6 x10^3/uL (2.2-4.8); NEUTROPHILS % (AUTO) 91.6 % (42.0-75.0); RED BLOOD COUNT 3.23 X10^6/uL (3.5-5.4); RED CELL DISTRIBUTION WIDTH 16.7 % (11.6-16.5); WHITE BLOOD COUNT 12.6 X10^3/uL (3.6-10.0)
[2021-11-12 05:58] LABS: ALANINE AMINOTRANSFERASE 29 Units/L (12-78); ALBUMIN 2.5 g/dL (3.4-5.0); ALKALINE PHOSPHATASE 76 Units/L (46-116); ASPARTATE AMINO TRANSFERASE 12 Units/L (15-37); BLOOD UREA NITROGEN 22 mg/dL (7-18); CALCIUM 8.5 mg/dL (8.5-10.1); CARBON DIOXIDE 28.4 mmol/L (21-32); CHLORIDE 105 mmol/L (98-107); COR CA(FOR HYPOALB) 9.7 mg/dL (8.5-10.1); COR NA(FOR HYPERGLY) 143 mmol/L (136-145); CREATININE 0.92 mg/dL (0.55-1.02); SODIUM 141 mmol/L (136-145); TOTAL PROTEIN 6.7 g/dL (6.4-8.2); eGFR NON BLACK RACES > 60 (>60)
[2021-11-12] MEDS: SOLU-Medrol 40 MG VIAL IVP SCH ×3 (06:09→21:06)
[2021-11-12] MEDS: ZOSYN VIAL 4.5 GRAMS 4.5 G in NS 100 ML IV 100 ML IV SCH ×3 (06:09→22:00)
[2021-11-12 06:14] LABS: BAND NEUTROPHILS % 1 % (0-10); PLATELET MORPHOLOGY COMMENT NORMAL (NORMAL)
[2021-11-12 06:15] LABS: ANISOCYTOSIS SLIGHT; HYPOCHROMASIA SLIGHT; MICROCYTOSIS SLIGHT
--- NOTE | 2021-11-12 06:31 | RAD ---
HISTORY:Shortness of breathStudy: Single view chestComparison:11/11/2021Findings:Stable left IJ port. Coarsened interstitial markings again demonstrated without infiltrate, effusion or pneumothorax. There postsurgical changes of the right humerus. Heart size is normal.IMPRESSION:Stable chest.Electronically signed by: LEONID STEPHEN (Nov 12, 2021 06:29:42)
[2021-11-12] MEDS: NS IV SCH ×3 (07:23→20:35)
[2021-11-12] MEDS: PULMICORT NEB TX 0.5 MG NEB SCH ×2 (08:52→21:45)
[2021-11-12] MEDS: DIFLUCAN 200 MG IV PREMIX* 200 MG/100 ML BAG IV SCH (09:31)
[2021-11-12] MEDS: MILK OF MAGNESIA PO SCH (09:31)
[2021-11-12] MEDS: CARDIZEM CD 240 MG 24-HR PO SCH (09:31)
[2021-11-12] MEDS: COLACE CAP 100 MG PO SCH ×2 (09:31→21:05)
[2021-11-12] MEDS: ROBITUSSIN DM PO SCH ×4 (09:31→20:34)
[2021-11-12] MEDS: NORCO 7.5/325 MG TAB PO SCH ×4 (09:32→21:00)
[2021-11-12] MEDS: VOLTAREN 1 % GEL MULTI DOSE TUBE TOP SCH ×2 (09:34→20:08)
[2021-11-12] MEDS: VSL#3 PO SCH (09:34)
[2021-11-12] MEDS: XANAX PO PRN ×2 (09:42→21:00)
[2021-11-12] MEDS ORDERED: LEVSIN/MAALOX/LIDOC VISC PO ONE (09:57)
[2021-11-12] MEDS: NovoLIN R (or HumuLIN R) SC PRN ×3 (11:33→21:07)
[2021-11-12] MEDS ORDERED: NS 1/2 1,000 ML IV 1,000 ML IV ONE (16:20)
[2021-11-12] MEDS: CATAPRES TAB 0.1 MG PO PRN (18:18)
[2021-11-12] MEDS: SNACK - Diabetic Appropriate PO SCH (20:08)
[2021-11-12] MEDS: LEVAQUIN PREMIX IV 750 MG 750 MG/150 ML BAG IV SCH (20:45)
[2021-11-12] MEDS: NEURONTIN CAP 100 MG PO SCH (21:05)
[2021-11-13] MEDS ORDERED: APRESOLINE INJ 20 MG VIAL IVP ONE (00:09)
[2021-11-13] MEDS: DUONEB 0.5 MG/3 MG (3 mL) NEB SCH ×6 (00:42→21:00)
[2021-11-13] MEDS: CHECK PATCH XX SCH ×3 (02:00→20:56)
[2021-11-13] MEDS: TUSSIONEX PENNKINETIC SUSP PO PRN (04:05)
[2021-11-13 05:29] LABS: BASOPHILS % (AUTO) 0.1 % (0.2-1.0); HEMATOCRIT 26.1 % (36.0-47.0); HEMOGLOBIN 8.8 g/dL (12.0-16.0); LYMPHOCYTES # (AUTO) 0.6 X10^3/uL (1.3-2.9); LYMPHOCYTES % (AUTO) 6.1 % (21.0-51.0); MEAN CORPUSCULAR HEMOGLOBIN 26.2 pg (27.0-34.0); MEAN CORPUSCULAR HGB CONC 33.7 g/dL (33.0-35.0); MEAN CORPUSCULAR VOLUME 77.7 fL (80.0-100.0); MEAN PLATELET VOLUME 6.8 fL (7.4-11.0); MONOCYTES # (AUTO) 0.6 x10^3/uL (0.3-0.8); MONOCYTES % (AUTO) 6.7 % (0.0-13.0); NEUTROPHILS # (AUTO) 7.9 x10^3/uL (2.2-4.8); NEUTROPHILS % (AUTO) 87.1 % (42.0-75.0); RED BLOOD COUNT 3.36 X10^6/uL (3.5-5.4); RED CELL DISTRIBUTION WIDTH 16.2 % (11.6-16.5); WHITE BLOOD COUNT 9.1 X10^3/uL (3.6-10.0)
--- NOTE | 2021-11-13 05:30 | RAD ---
PROCEDURE: Chest X-ray 1 View .HISTORY: Dyspnea.TECHNIQUE: AP view .COMPARISON: 11/12/2021.TECHNICAL QUALITY: Satisfactory .FINDINGS:Left internal jugular Port-A-Cath in good position.Normal size heart.Mediastinum and hilar regions show no masses or lymphadenopathy .Normal central vascularity .No pulmonary consolidation, masses, pleural fluid, or pneumothorax .Total right shoulder arthroplasty.IMPRESSION:No active cardiopulmonary disease .Electronically signed by: Aly Stevens (Nov 13, 2021 05:28:08)
[2021-11-13 05:49] LABS: ALANINE AMINOTRANSFERASE 26 Units/L (12-78); ALBUMIN 2.5 g/dL (3.4-5.0); ALKALINE PHOSPHATASE 70 Units/L (46-116); ASPARTATE AMINO TRANSFERASE 11 Units/L (15-37); BLOOD UREA NITROGEN 21 mg/dL (7-18); CALCIUM 8.3 mg/dL (8.5-10.1); CARBON DIOXIDE 28.7 mmol/L (21-32); CHLORIDE 105 mmol/L (98-107); COR CA(FOR HYPOALB) 9.5 mg/dL (8.5-10.1); COR NA(FOR HYPERGLY) 143 mmol/L (136-145); CREATININE 0.86 mg/dL (0.55-1.02); SODIUM 142 mmol/L (136-145); TOTAL PROTEIN 6.4 g/dL (6.4-8.2); eGFR NON BLACK RACES > 60 (>60)
[2021-11-13] MEDS: ZOSYN VIAL 4.5 GRAMS 4.5 G in NS 100 ML IV 100 ML IV SCH ×3 (06:06→22:00)
[2021-11-13] MEDS: SOLU-Medrol 40 MG VIAL IVP SCH ×3 (06:06→22:01)
[2021-11-13 07:14] LABS: HYPOCHROMASIA SLIGHT; MICROCYTOSIS SLIGHT; PLATELET MORPHOLOGY COMMENT NORMAL (NORMAL)
[2021-11-13 07:18] LABS: TARGET CELLS SLIGHT
[2021-11-13] MEDS: COLACE CAP 100 MG PO SCH ×2 (08:52→20:56)
[2021-11-13] MEDS: ROBITUSSIN DM PO SCH ×4 (08:52→20:57)
[2021-11-13] MEDS: DIFLUCAN 200 MG IV PREMIX* 200 MG/100 ML BAG IV SCH (08:53)
[2021-11-13] MEDS: CARDIZEM CD 240 MG 24-HR PO SCH (08:53)
[2021-11-13] MEDS: NORCO 7.5/325 MG TAB PO SCH ×4 (08:53→20:57)
[2021-11-13] MEDS: XANAX PO PRN ×2 (08:53→23:00)
[2021-11-13] MEDS: VSL#3 PO SCH (08:54)
[2021-11-13] MEDS: VOLTAREN 1 % GEL MULTI DOSE TUBE TOP SCH ×2 (08:54→20:58)
[2021-11-13] MEDS: PULMICORT NEB TX 0.5 MG NEB SCH ×2 (09:12→21:00)
[2021-11-13] MEDS: NS IV SCH (10:03)
[2021-11-13] MEDS: FLONASE NASAL SPRAY ENOSTRIL SCH (11:36)
[2021-11-13] MEDS: NovoLIN R (or HumuLIN R) SC PRN ×3 (11:42→22:00)
[2021-11-13] MEDS ORDERED: POTASSIUM CHLORIDE LIQ 20 MEQ UDC PO PRN (16:39)
[2021-11-13] MEDS ORDERED: MICRO K EXTEN CAP 10 MEQ PO PRN (16:39)
[2021-11-13] MEDS ORDERED: POTASSIUM CHL 60 MEQ/NS 0.45% 500 ML IV PRN (16:39)
[2021-11-13] MEDS ORDERED: K-RIDER 10 MEQ/NS 100 ML 10 MEQ/100 ML BAG IV PRN (16:39)
[2021-11-13] MEDS ORDERED: POTASSIUM CHL 40 MEQ/NS 0.45% 500 ML IV PRN (16:39)
[2021-11-13] MEDS ORDERED: KLOR-CON PO PRN (16:39)
[2021-11-13] MEDS: K-DUR TAB 20 MEQ PO PRN (18:22)
[2021-11-13] MEDS: LEVAQUIN PREMIX IV 750 MG 750 MG/150 ML BAG IV SCH (20:26)
[2021-11-13] MEDS: SNACK - Diabetic Appropriate PO SCH (20:55)
[2021-11-13] MEDS: NEURONTIN CAP 100 MG PO SCH (20:56)
[2021-11-13] MEDS: CATAPRES TAB 0.1 MG PO PRN (23:00)
[2021-11-14] MEDS: DUONEB 0.5 MG/3 MG (3 mL) NEB SCH ×6 (00:13→20:15)
[2021-11-14] MEDS: NS IV SCH ×3 (01:14→15:38)
[2021-11-14 05:20] LABS: BASOPHILS % (AUTO) 0.1 % (0.2-1.0); HEMOGLOBIN 8.9 g/dL (12.0-16.0); LYMPHOCYTES # (AUTO) 0.6 X10^3/uL (1.3-2.9); LYMPHOCYTES % (AUTO) 6.9 % (21.0-51.0); MEAN CORPUSCULAR HEMOGLOBIN 26.8 pg (27.0-34.0); MEAN CORPUSCULAR HGB CONC 34.3 g/dL (33.0-35.0); MEAN CORPUSCULAR VOLUME 78.2 fL (80.0-100.0); MEAN PLATELET VOLUME 6.8 fL (7.4-11.0); MONOCYTES # (AUTO) 0.4 x10^3/uL (0.3-0.8); NEUTROPHILS # (AUTO) 7.6 x10^3/uL (2.2-4.8); RED BLOOD COUNT 3.33 X10^6/uL (3.5-5.4); RED CELL DISTRIBUTION WIDTH 16.3 % (11.6-16.5); WHITE BLOOD COUNT 8.6 X10^3/uL (3.6-10.0)
--- NOTE | 2021-11-14 05:35 | RAD ---
PROCEDURE: Chest X-ray 1 View .HISTORY: Dyspnea.TECHNIQUE: AP portable view done at 5:13 a.m..COMPARISON: 11/13/2021.TECHNICAL QUALITY: Satisfactory .FINDINGS:Unchanged left internal jugular Port-A-Cath with the tip in the right atrium.Normal size heart.Mediastinum and hilar regions show no masses or lymphadenopathy .Normal central vascularity .No pulmonary consolidation, masses, pleural fluid, or pneumothorax. Unchanged interstitial fibrosis bilaterally.No acute bony abnormality .IMPRESSION:No acute change.Electronically signed by: Aly Stevens (Nov 14, 2021 05:33:31)
[2021-11-14 06:07] LABS: BLOOD UREA NITROGEN 23 mg/dL (7-18); CALCIUM 8.4 mg/dL (8.5-10.1); CARBON DIOXIDE 29.6 mmol/L (21-32); CHLORIDE 104 mmol/L (98-107); COR NA(FOR HYPERGLY) 141 mmol/L (136-145); SODIUM 140 mmol/L (136-145); eGFR NON BLACK RACES > 60 (>60)
[2021-11-14] MEDS: SOLU-Medrol 40 MG VIAL IVP SCH ×3 (06:15→21:30)
[2021-11-14] MEDS: ZOSYN VIAL 4.5 GRAMS 4.5 G in NS 100 ML IV 100 ML IV SCH ×3 (06:15→23:00)
[2021-11-14] MEDS: XANAX PO PRN ×3 (06:16→21:00)
[2021-11-14] MEDS: CATAPRES TAB 0.1 MG PO PRN ×3 (06:16→21:30)
[2021-11-14] MEDS: PULMICORT NEB TX 0.5 MG NEB SCH ×2 (07:05→20:15)
[2021-11-14] MEDS: CARDIZEM CD 240 MG 24-HR PO SCH (08:07)
[2021-11-14] MEDS: DIFLUCAN 200 MG IV PREMIX* 200 MG/100 ML BAG IV SCH (08:08)
[2021-11-14] MEDS: VOLTAREN 1 % GEL MULTI DOSE TUBE TOP SCH ×2 (08:08→20:18)
[2021-11-14] MEDS: ROBITUSSIN DM PO SCH ×4 (08:08→20:18)
[2021-11-14] MEDS: COLACE CAP 100 MG PO SCH ×2 (08:08→20:17)
[2021-11-14] MEDS: VSL#3 PO SCH (08:09)
[2021-11-14] MEDS: FLONASE NASAL SPRAY ENOSTRIL SCH (08:09)
[2021-11-14] MEDS: MILK OF MAGNESIA PO SCH (08:15)
[2021-11-14] MEDS: NORCO 7.5/325 MG TAB PO SCH ×4 (08:15→20:18)
[2021-11-14] MEDS: CHECK PATCH XX SCH ×2 (08:15→21:30)
[2021-11-14 09:25] LABS: ALANINE AMINOTRANSFERASE 34 Units/L (12-78); ALBUMIN 2.5 g/dL (3.4-5.0); ALKALINE PHOSPHATASE 65 Units/L (46-116); ASPARTATE AMINO TRANSFERASE 11 Units/L (15-37); COR CA(FOR HYPOALB) 9.6 mg/dL (8.5-10.1); TOTAL PROTEIN 6.2 g/dL (6.4-8.2)
[2021-11-14] MEDS ORDERED: CARDIZEM CD 120 MG 24-HR PO ONE (10:12)
--- NOTE | 2021-11-14 10:46 | PCM.PROG ---
Progress Note - Progress Note for Day of Date of Exam: 11/14/21 - Subjective Subjective: IS CURRENTLY INPATIENT STATUS FOR TREATMENT OF MULTILOBAR PNEUMONIA, COPD EXACERBATION, UTI, AND GENERALIZED WEAKNESS. SHE HAD AN UNEVENTFUL WEEKEND. TODAY, SHE IS ALERT AND ORIENTED, SITTING UP IN BED ON MORNING ROUNDS. SHE CONTINUES TO COMPLAIN OF SHORTNESS OF BREATH AND COUGH. SHE REPORTS DISCOMFORT TO THE CHEST WHEN COUGHING. SHE IS CURRENTLY UTILIZING OXYGEN VIA NASAL CANNUAL AT 2 LPM. SATURATIONS HAVE BEEN IN THE 90s. ON EXAMINATION, SHE IS TACHYCARDIC WITH HR 110-120 BPM. EXPIRATORY WHEEZING NOTED ON AUSCULTATION. ABDOMEN IS ROUND, SOFT, AND NON-TENDER WITH NORMAL BOWEL SOUNDS NOTED IN ALL QUADRANTS. NO UPPER OR LOWER EXTREMITY EDEMA NOTED. HER VITALS THIS MORNING ARE: 97.9-105-23-97%-197/91. LABS WERE OBTAINED. WBC 8.6, RBC 3.33, HGB 8.9, HCT 26.0, SODIUM 140, POTASSIUM 3.8, CHLORIDE 104, BUN 23, CREATININE 0.90, GLUCOSE 160, CALCIUM 8.4, AST 11, ALT 34, ALK PHOS 65, TOTAL PROTEIN 6.2, ALBUMIN 2.5. URINE CULTURE IS POSITIVE FOR GROWTH OF E.COLI. SPUTUM CULTURE IS POSITIVE FOR GROWTH OF STAPHYLOCOCCUS AUREUS. BLOOD CULTURES ARE PENDING. A CHEST XRAY WAS OBTAINED AND REVEALED: Unchanged left internal jugular Port-A-Cath with the tip in the right atrium. Normal size heart. Mediastinum and hilar regions show no masses or lymphadenopathy. Normal central vascularity. No pulmonary consolidation, masses, pleural fluid, or pneumothorax. Unchanged interstitial fibrosis bilaterally. No acute bony abnormality. SHE IS CURRENTLY RECEIVING 1/2NS AT 75 ML/HR, LEVAQUIN 750MG IV DAILY, ZOSYN 4.5G IV TID, DIFLUCAN 200MG IV DAILY, DUONEBS Q4H, PULMICORT NEBS BID, SOLU-MEDROL 20MG IV Q8H, TUSSIONEX 5ML PO Q12H PRN, OTBS ACHS, HUMULIN R SLIDING SCALE, VSL 2 CAPSULES DAILY, ROBITUSSIN DM 10ML PO QID, THE POTASSIUM AND MAGNESIUM PROTOCOLS, AND HER HOME MEDICATIONS WERE RESUMED. TODAY, WE WILL INCREASE CARDIZEM TO 360MG PO DAILY. OTHERWISE, WE WILL FOLLOW-UP WITH AM LABS AND CONTINUE TO MONITOR. TIME SPENT ON CLINICAL ASSESSMENT, REVIEWING LABS AND IMAGING, DECISION MAKING, AND DOCUMENTATION GREATER THAN 45 MINUTES. - Past Medical Family Social History Past Med/Fam/Surg Hx: No changes since H&P Allergies: Allergies morphine Allergy (Verified 08/06/20 13:53) rofecoxib [From Vioxx] Allergy (Verified 08/06/20 13:53) - Review of Systems ROS: No change since H&P - Vital Signs and I&O's Vital Signs: Temperature 97.9 F Pulse Rate 112 Respiratory Rate 17 Blood Pressure [Left Arm] 160/91 Blood Pressure 197/91 O2 Sat by Pulse Oximetry 94 Intake and Output: Intake & Output 11/11/21 11/12/21 11/13/21 11/14/21 11:59 11:59 11:59 11:59 Intake Total 3689 / 3689 2733 / 2733 1843 / 1843 1890 / 1890 Balance 3689 / 3689 2733 / 2733 1843 / 1843 189 / 1890 - Physical Exam Oriented: Normal Eyes: Normal Ear: Normal Nose: Normal Throat: Normal Respiratory: Generalized, Diminished Cardiovascular: Tachycardia : Normal Auscultation: Bowel Sounds: Normal Palpation: Normal Tenderness: Normal Skin: Normal Musculoskeletal: Normal Psychiatric: Normal Mood Description: Calm Affect: Normal Speech Pattern: Clear, Appropriate - Laboratory and Diagnostics Result Diagrams: 11/14/21 04:20 11/14/21 04:20 Labs: 11/10/21 00:01 Sputum - Expectorated Sputum Sputum Culture - Final Staphylococcus Aureus 11/10/21 00:01 Sputum - Expectorated Sputum - Final 11/10/21 04:11 Urine,Catheterized Urine Culture - Final Escherichia Coli 11/09/21 21:30 Blood Blood Culture - Preliminary 11/09/21 21:21 Blood Blood Culture - Preliminary Laboratory WBC 8.6 X10^3/uL (3.6-10.0) 11/14/21 04:20 RBC 3.33 X10^6/uL (3.5-5.4) L 11/14/21 04:20 Hgb 8.9 g/dL (12.0-16.0) L 11/14/21 04:20 Hct 26.0 % (36.0-47.0) L 11/14/21 04:20 MCV 78.2 fL (80.0-100.0) L 11/14/21 04:20 MCH 26.8 pg (27.0-34.0) L 11/14/21 04:20 MCHC 34.3 g/dL (33.0-35.0) 11/14/21 04:20 RDW 16.3 % (11.6-16.5) 11/14/21 04:20 Plt Count 404 X10^3/uL (150.0-450.0) 11/14/21 04:20 Plt Count Comment Adequate (ADEQUATE) 11/13/21 04:20 MPV 6.8 fL (7.4-11.0) L 11/14/21 04:20 Neut % (Auto) 88.0 % (42.0-75.0) H 11/14/21 04:20 Lymph % (Auto) 6.9 % (21.0-51.0) L 11/14/21 04:20 [place] % (Auto) 5.0 % (0.0-13.0) 11/14/21 04:20 Eos % (Auto) 0.0 % (0.9-2.9) L 11/14/21 04:20 Baso % (Auto) 0.1 % (0.2-1.0) L 11/14/21 04:20 Neut # (Auto) 7.6 x10^3/uL (2.2-4.8) H 11/14/21 04:20 Lymph # (Auto) 0.6 X10^3/uL (1.3-2.9) L 11/14/21 04:20 [place] # (Auto) 0.4 x10^3/uL (0.3-0.8) 11/14/21 04:20 Eos # (Auto) 0.0 x10^3/uL (0.0-0.2) 11/14/21 04:20 Baso # (Auto) 0.0 X10^3/uL (0.0-0.1) 11/14/21 04:20 Absolute Nucleated RBC 0.0 /100WBC 11/14/21 04:20 Total Counted 100 11/13/21 04:20 Neutrophils % (Manual) 90 % (39-76) H 11/13/21 04:20 Band Neutrophils % 1 % (0-10) 11/12/21 04:00 Lymphocytes % (Manual) 5 % (13-43) L 11/13/21 04:20 Monocytes % (Manual) 5 % (4-9) 11/13/21 04:20 Eosinophils % (Manual) 3 % (0-6) 11/10/21 04:25 Metamyelocytes % 1 11/10/21 04:25 Atypical Lymphocytes Few A 11/10/21 04:25 Plt Morphology Comment Normal (NORMAL) 11/13/21 04:20 RBC Morphology Abnormal (NORMAL) A 11/13/21 04:20 Hypochromasia Slight A 11/13/21 04:20 Anisocytosis Slight A 11/12/21 04:00 Microcytosis Slight A 11/13/21 04:20 Target Cells Slight A 11/13/21 04:20 Schistocytes Present 11/10/21 04:25 Sodium 140 mmol/L (136-145) 11/14/21 04:20 Corrected Sodium 141 mmol/L (136-145) 11/14/21 04:20 Potassium 3.8 mmol/L (3.5-5.1) 11/14/21 04:20 Chloride 104 mmol/L (98-107) 11/14/21 04:20 Carbon Dioxide 29.6 mmol/L (21-32) 11/14/21 04:20 BUN 23 mg/dL (7-18) H 11/14/21 04:20 Creatinine 0.90 mg/dL (0.55-1.02) 11/14/21 04:20 Est GFR (MDRD) Af Amer > 60 (>60) 11/14/21 04:20 Est GFR (MDRD) Non-Af > 60 (>60) 11/14/21 04:20 Glucose 160 mg/dL (65-99) H 11/14/21 04:20 POC Glucose (mg/dL) 160 mg/dL (65-99) H 11/14/21 06:22 Calcium 8.4 mg/dL (8.5-10.1) L 11/14/21 04:20 Corrected Calcium 9.6 mg/dL (8.5-10.1) 11/14/21 04:20 Magnesium 2.0 mg/dL (1.7-2.9) 11/13/21 04:20 Iron 29 ug/dL (50-175) L 11/12/21 04:00 Transferrin 197 mg/dL (202-364) L 11/12/21 04:00 Ferritin 74 ng/mL (8-252) 11/12/21 04:00 Total Bilirubin 0.20 mg/dL (0.2-1.0) 11/14/21 04:20 AST 11 Units/L (15-37) L 11/14/21 04:20 ALT 34 Units/L (12-78) 11/14/21 04:20 Alkaline Phosphatase 65 Units/L (46-116) 11/14/21 04:20 Total Protein 6.2 g/dL (6.4-8.2) L 11/14/21 04:20 Albumin 2.5 g/dL (3.4-5.0) L 11/14/21 04:20 Globulin 3.7 g/dL (2.5-4.5) 11/14/21 04:20 Albumin/Globulin Ratio 0.7 Ratio (1.1-2.1) L 11/14/21 04:20 Vitamin B12 386 pg/mL (193-986) 11/12/21 04:00 Folate 11.7 ng/mL (>8.6) 11/12/21 04:00 Specimen Type Catherized urine 11/10/21 04:11 Urine Color Yellow (YELLOW) 11/10/21 04:11 Urine Appearance Turbid (CLEAR) 11/10/21 04:11 Urine pH 6.0 (5.0 - 8.0) 11/10/21 04:11 Ur Specific [place] 1.010 (1.000-1.030) 11/10/21 04:11 Urine Protein 2+ (NEGATIVE) 11/10/21 04:11 Urine Glucose (UA) Negative (NEGATIVE) 11/10/21 04:11 Urine Ketones Negative (NEGATIVE) 11/10/21 04:11 Urine Blood 5+ (NEGATIVE) 11/10/21 04:11 Urine Nitrite Positive (NEGATIVE) 11/10/21 04:11 Urine Bilirubin Negative (NEGATIVE) 11/10/21 04:11 Urine Urobilinogen Normal (NORMAL) 11/10/21 04:11 Ur Leukocyte Esterase 3+ (NEGATIVE) 11/10/21 04:11 Urine RBC 10-20 /HPF (0-3) A 11/10/21 04:11 Urine WBC 30-50 /HPF (0-5) A 11/10/21 04:11 Ur Squamous Epith Cells Few /HPF (NEGATIVE) 11/10/21 04:11 Amorphous Sediment 1+ /HPF (NEGATIVE) 11/10/21 04:11 Urine Bacteria 2+ /HPF (NEGATIVE) 11/10/21 04:11 Other Casts Few /LPF (NEGATIVE) 11/10/21 04:11 Urine Mucus Moderate /HPF (NEGATIVE) 11/10/21 04:11 Ur Culture Indicated? Yes/culture set up 11/10/21 04:11 SARS-CoV-2 (PCR) Negative (NEGATIVE) 11/09/21 20:48 Influenza Type A (PCR) Negative (NEGATIVE) 11/09/21 20:48 Influenza Type B (PCR) Negative (NEGATIVE) 11/09/21 20:48 RSV (PCR) Negative (NEGATIVE) 11/09/21 20:48 - Plan (1) Lobar pneumonia Status: Acute Plan: SUPPLEMENTAL OXYGEN, IV FLUIDS, IV ANTIBIOTICS, NEBULIZER TREATMENTS, RESUME HOME MEDS, CONTINUE TO MONITOR (2) Acute exacerbation of chronic obstructive pulmonary disease Status: Acute (3) UTI (urinary tract infection) Status: Acute Qualifiers: Urinary tract infection type: acute cystitis Hematuria presence: with hematuria Qualified Code(s): N30.01 - Acute cystitis with hematuria (4) Weakness Status: Acute (5) CAD (coronary artery disease) Status: Chronic Qualifiers: Coronary Disease-Associated Artery/Lesion type: [place] artery [place] vs. transplanted heart: [place] heart Associated angina: with stable angina Qualified Code(s): I25.118 - Atherosclerotic heart disease of [place] coronary artery with other forms of angina pectoris (6) CKD (chronic kidney disease) stage 3, GFR 30-59 ml/min Status: Chronic Qualifiers: Chronic kidney disease stage 3 subtype: stage 3b (GFR 30-44) Qualified Code(s): N18.32 - Chronic kidney disease, stage 3b (7) Hypertension Status: Chronic Qualifiers: Hypertension type: primary hypertension Qualified Code(s): I10 - Essential (primary) hypertension (8) Hypothyroidism Status: Chronic Qualifiers: Hypothyroidism type: acquired Qualified Code(s): E03.9 - Hypothyroidism, unspecified
[2021-11-14] MEDS: TUSSIONEX PENNKINETIC SUSP PO PRN (16:52)
[2021-11-14] MEDS: LEVAQUIN PREMIX IV 750 MG 750 MG/150 ML BAG IV SCH (20:16)
[2021-11-14] MEDS: SNACK - Diabetic Appropriate PO SCH (20:17)
[2021-11-14] MEDS: NEURONTIN CAP 100 MG PO SCH (20:19)
[2021-11-14] MEDS ORDERED: CATAPRES TAB 0.1 MG PO ONE (22:42)
[2021-11-15] MEDS: DUONEB 0.5 MG/3 MG (3 mL) NEB SCH ×6 (00:01→20:16)
[2021-11-15] MEDS: NORMODYNE INJ 20 MG VIAL IV PRN ×4 (00:15→01:10)
[2021-11-15] MEDS: CATAPRES TAB 0.1 MG PO PRN (02:00)
[2021-11-15] MEDS ORDERED: BENICAR TAB 40 MG PO ONE (02:14)
[2021-11-15 04:58] LABS: BASOPHILS % (AUTO) 0.1 % (0.2-1.0); HEMATOCRIT 28.5 % (36.0-47.0); HEMOGLOBIN 9.5 g/dL (12.0-16.0); LYMPHOCYTES # (AUTO) 0.4 X10^3/uL (1.3-2.9); LYMPHOCYTES % (AUTO) 4.6 % (21.0-51.0); MEAN CORPUSCULAR HEMOGLOBIN 25.8 pg (27.0-34.0); MEAN CORPUSCULAR HGB CONC 33.3 g/dL (33.0-35.0); MEAN CORPUSCULAR VOLUME 77.7 fL (80.0-100.0); MEAN PLATELET VOLUME 6.9 fL (7.4-11.0); MONOCYTES # (AUTO) 0.6 x10^3/uL (0.3-0.8); MONOCYTES % (AUTO) 7.2 % (0.0-13.0); NEUTROPHILS # (AUTO) 7.9 x10^3/uL (2.2-4.8); NEUTROPHILS % (AUTO) 88.1 % (42.0-75.0); RED BLOOD COUNT 3.67 X10^6/uL (3.5-5.4); RED CELL DISTRIBUTION WIDTH 16.7 % (11.6-16.5)
[2021-11-15 05:05] LABS: ALANINE AMINOTRANSFERASE 35 Units/L (12-78); ALBUMIN 2.5 g/dL (3.4-5.0); ALKALINE PHOSPHATASE 67 Units/L (46-116); ASPARTATE AMINO TRANSFERASE 10 Units/L (15-37); BLOOD UREA NITROGEN 16 mg/dL (7-18); CALCIUM 8.3 mg/dL (8.5-10.1); CHLORIDE 103 mmol/L (98-107); COR CA(FOR HYPOALB) 9.5 mg/dL (8.5-10.1); COR NA(FOR HYPERGLY) 140 mmol/L (136-145); CREATININE 0.68 mg/dL (0.55-1.02); SODIUM 139 mmol/L (136-145); TOTAL PROTEIN 6.3 g/dL (6.4-8.2); eGFR NON BLACK RACES > 60 (>60)
[2021-11-15] MEDS: NS IV SCH ×3 (05:29→21:31)
[2021-11-15] MEDS: SOLU-Medrol 40 MG VIAL IVP SCH ×3 (05:44→21:13)
[2021-11-15] MEDS: ZOSYN VIAL 4.5 GRAMS 4.5 G in NS 100 ML IV 100 ML IV SCH ×3 (05:44→21:14)
--- NOTE | 2021-11-15 05:55 | RAD ---
PROCEDURE: Chest X-ray 1 View .HISTORY: Pneumonia and dyspnea.TECHNIQUE: AP portable done at 5:24 a.m..COMPARISON: 11/14/2021.TECHNICAL QUALITY: Satisfactory .FINDINGS:Left internal jugular Port-A-Cath in good position with the tip in the right atrium.Normal size heart.Mediastinum and hilar regions show no masses or lymphadenopathy. Tortuous aorta.Normal central vascularity .No pulmonary consolidation, masses, pleural fluid, or pneumothorax .No acute bony abnormality .IMPRESSION:No active cardiopulmonary disease .Electronically signed by: Aly Stevens (Nov 15, 2021 05:53:06)
[2021-11-15] MEDS: PULMICORT NEB TX 0.5 MG NEB SCH ×2 (08:05→20:16)
[2021-11-15] MEDS: DIFLUCAN 200 MG IV PREMIX* 200 MG/100 ML BAG IV SCH (08:38)
[2021-11-15] MEDS: COLACE CAP 100 MG PO SCH ×2 (08:39→20:05)
[2021-11-15] MEDS: CARDIZEM CD 360 MG 24-HR PO SCH (08:39)
[2021-11-15] MEDS: TUSSIONEX PENNKINETIC SUSP PO PRN ×2 (08:39→20:03)
[2021-11-15] MEDS: ROBITUSSIN DM PO SCH ×4 (08:39→20:03)
[2021-11-15] MEDS: VSL#3 PO SCH (08:39)
[2021-11-15] MEDS: NORCO 7.5/325 MG TAB PO SCH ×4 (08:40→20:04)
[2021-11-15] MEDS: XANAX PO PRN ×3 (08:43→20:03)
[2021-11-15] MEDS: FLONASE NASAL SPRAY ENOSTRIL SCH (08:44)
[2021-11-15] MEDS ORDERED: NS 1/2 1,000 ML IV 1,000 ML IV ONE (08:46)
[2021-11-15] MEDS: VOLTAREN 1 % GEL MULTI DOSE TUBE TOP SCH ×2 (08:48→21:11)
[2021-11-15] MEDS: CHECK PATCH XX SCH ×2 (08:51→20:15)
[2021-11-15] MEDS ORDERED: BENICAR TAB 40 MG PO SCH (10:00)
--- NOTE | 2021-11-15 10:17 | PCM.PROG ---
Progress Note - Progress Note for Day of Date of Exam: 11/15/21 - Subjective Subjective: IS CURRENTLY INPATIENT STATUS FOR TREATMENT OF MULTILOBAR PNEUMONIA, COPD EXACERBATION, UTI, HTN, AND GENERALIZED WEAKNESS. TODAY, SHE IS ALERT AND ORIENTED, SITTING UP IN BED ON MORNING ROUNDS. SHE CONTINUES TO COMPLAIN OF SHORTNESS OF BREATH AND COUGH, BUT REPORTS SOME IMPROVEMENT IN SYMPTOMS SINCE YESTERDAY. SHE IS CURRENTLY UTILIZING OXYGEN VIA NASAL CANNUAL AT 2 LPM. SATURATIONS HAVE BEEN IN THE 90s. ON EXAMINATION, HEART IS REGULAR IN RATE AND RHYTHM. DIMINISHED LUNG SOUNDS NOTED IN ALL QUADRANTS. ABDOMEN IS ROUND, SOFT, AND NON-TENDER WITH NORMAL BOWEL SOUNDS NOTED IN ALL QUADRANTS. NO UPPER OR LOWER EXTREMITY EDEMA NOTED. HER VITALS THIS MORNING ARE: 98.8-74-15-100%-165/76. LABS WERE OBTAINED. WBC 9.0, RBC 3.67, HGB 9.5, HCT 28.5, PLT COUNT 414, SODIUM 139, POTASSIUM 3.6, BUN 16, CREATININE 0.68, GLUCOSE 125, CALCIUM 8.3, AST 10, ALT 35, ALK PHOS 67, TOTAL PROTEIN 6.3, ALBUMIN 2.5. URINE CULTURE IS POSITIVE FOR GROWTH OF E.COLI. SPUTUM CULTURE IS POSITIVE FOR G ROWTH OF STAPHYLOCOCCUS AUREUS. SHE IS CURRENTLY RECEIVING 1/2NS AT 75 ML/HR, LEVAQUIN 750MG IV DAILY, ZOSYN 4.5G IV TID, DIFLUCAN 200MG IV DAILY, DUONEBS Q4H, PULMICORT NEBS BID, SOLU-MEDROL 20MG IV Q8H, TUSSIONEX 5ML PO Q12H PRN, OTBS ACHS, HUMULIN R SLIDING SCALE, VSL 2 CAPSULES DAILY, ROBITUSSIN DM 10ML PO QID, THE POTASSIUM AND MAGNESIUM PROTOCOLS, CARDIZEM CD 360MG PO DAILY, AND HER HOME MEDICATIONS WERE RESUMED. TODAY, WE WILL ADD BENICAR 20MG PO DAILY DUE TO ELEVATED BLOOD PRESSURES. OTHERWISE, WE WILL FOLLOW-UP WITH AM LABS AND CONTINUE TO MONITOR. TIME SPENT ON CLINICAL ASSESSMENT, REVIEWING LABS AND IMAGING, DECISION MAKING, AND DOCUMENTATION GREATER THAN 45 MINUTES. - Past Medical Family Social History Past Med/Fam/Surg Hx: No changes since H&P Allergies: Allergies morphine Allergy (Verified 08/06/20 13:53) rofecoxib [From Vioxx] Allergy (Verified 08/06/20 13:53) - Review of Systems ROS: No change since H&P - Vital Signs and I&O's Vital Signs: Temperature 98.8 F Pulse Rate [Right Brachial] 74 Pulse Rate 100 Respiratory Rate 25 Blood Pressure [Right Arm] 213/98 Blood Pressure [Left Arm] 213/99 Blood Pressure 165/76 O2 Sat by Pulse Oximetry 93 Intake and Output: Intake & Output 11/12/21 11/13/21 11/14/21 11/15/21 11:59 11:59 11:59 11:59 Intake Total 2733 / 2733 1843 / 1843 1890 / 1890 2572 / 2572 Balance 2733 / 2733 1843 / 1843 1890 / 1890 2572 / 2572 - Physical Exam Oriented: Normal Eyes: Normal Ear: Normal Nose: Normal Throat: Normal Respiratory: Generalized, Diminished Cardiovascular: Normal : Normal Auscultation: Bowel Sounds: Normal Palpation: Normal Tenderness: Normal Skin: Normal Musculoskeletal: Normal Psychiatric: Normal Mood Description: Calm Affect: Normal Speech Pattern: Clear, Appropriate - Laboratory and Diagnostics Result Diagrams: 11/15/21 04:05 11/15/21 04:05 Labs: 11/10/21 00:01 Sputum - Expectorated Sputum Sputum Culture - Final Staphylococcus Aureus 11/10/21 00:01 Sputum - Expectorated Sputum - Final 11/10/21 04:11 Urine,Catheterized Urine Culture - Final Escherichia Coli 11/09/21 21:30 Blood Blood Culture - Preliminary 11/09/21 21:21 Blood Blood Culture - Preliminary Laboratory WBC 9.0 X10^3/uL (3.6-10.0) 11/15/21 04:05 RBC 3.67 X10^6/uL (3.5-5.4) 11/15/21 04:05 Hgb 9.5 g/dL (12.0-16.0) L 11/15/21 04:05 Hct 28.5 % (36.0-47.0) L 11/15/21 04:05 MCV 77.7 fL (80.0-100.0) L 11/15/21 04:05 MCH 25.8 pg (27.0-34.0) L 11/15/21 04:05 MCHC 33.3 g/dL (33.0-35.0) 11/15/21 04:05 RDW 16.7 % (11.6-16.5) H 11/15/21 04:05 Plt Count 414 X10^3/uL (150.0-450.0) 11/15/21 04:05 Plt Count Comment Adequate (ADEQUATE) 11/13/21 04:20 MPV 6.9 fL (7.4-11.0) L 11/15/21 04:05 Neut % (Auto) 88.1 % (42.0-75.0) H 11/15/21 04:05 Lymph % (Auto) 4.6 % (21.0-51.0) L 11/15/21 04:05 [place] % (Auto) 7.2 % (0.0-13.0) 11/15/21 04:05 Eos % (Auto) 0.0 % (0.9-2.9) L 11/15/21 04:05 Baso % (Auto) 0.1 % (0.2-1.0) L 11/15/21 04:05 Neut # (Auto) 7.9 x10^3/uL (2.2-4.8) H 11/15/21 04:05 Lymph # (Auto) 0.4 X10^3/uL (1.3-2.9) L 11/15/21 04:05 [place] # (Auto) 0.6 x10^3/uL (0.3-0.8) 11/15/21 04:05 Eos # (Auto) 0.0 x10^3/uL (0.0-0.2) 11/15/21 04:05 Baso # (Auto) 0.0 X10^3/uL (0.0-0.1) 11/15/21 04:05 Absolute Nucleated RBC 0.0 /100WBC 11/15/21 04:05 Total Counted 100 11/13/21 04:20 Neutrophils % (Manual) 90 % (39-76) H 11/13/21 04:20 Band Neutrophils % 1 % (0-10) 11/12/21 04:00 Lymphocytes % (Manual) 5 % (13-43) L 11/13/21 04:20 Monocytes % (Manual) 5 % (4-9) 11/13/21 04:20 Eosinophils % (Manual) 3 % (0-6) 11/10/21 04:25 Metamyelocytes % 1 11/10/21 04:25 Atypical Lymphocytes Few A 11/10/21 04:25 Plt Morphology Comment Normal (NORMAL) 11/13/21 04:20 RBC Morphology Abnormal (NORMAL) A 11/13/21 04:20 Hypochromasia Slight A 11/13/21 04:20 Anisocytosis Slight A 11/12/21 04:00 Microcytosis Slight A 11/13/21 04:20 Target Cells Slight A 11/13/21 04:20 Schistocytes Present 11/10/21 04:25 Sodium 139 mmol/L (136-145) 11/15/21 04:05 Corrected Sodium 140 mmol/L (136-145) 11/15/21 04:05 Potassium 3.6 mmol/L (3.5-5.1) 11/15/21 04:05 Chloride 103 mmol/L (98-107) 11/15/21 04:05 Carbon Dioxide 31.0 mmol/L (21-32) 11/15/21 04:05 BUN 16 mg/dL (7-18) 11/15/21 04:05 Creatinine 0.68 mg/dL (0.55-1.02) 11/15/21 04:05 Est GFR (MDRD) Af Amer > 60 (>60) 11/15/21 04:05 Est GFR (MDRD) Non-Af > 60 (>60) 11/15/21 04:05 Glucose 125 mg/dL (65-99) H 11/15/21 04:05 POC Glucose (mg/dL) 128 mg/dL (65-99) H 11/15/21 06:04 Calcium 8.3 mg/dL (8.5-10.1) L 11/15/21 04:05 Corrected Calcium 9.5 mg/dL (8.5-10.1) 11/15/21 04:05 Magnesium 2.0 mg/dL (1.7-2.9) 11/13/21 04:20 Iron 29 ug/dL (50-175) L 11/12/21 04:00 Transferrin 197 mg/dL (202-364) L 11/12/21 04:00 Ferritin 74 ng/mL (8-252) 11/12/21 04:00 Total Bilirubin 0.30 mg/dL (0.2-1.0) 11/15/21 04:05 AST 10 Units/L (15-37) L 11/15/21 04:05 ALT 35 Units/L (12-78) 11/15/21 04:05 Alkaline Phosphatase 67 Units/L (46-116) 11/15/21 04:05 Total Protein 6.3 g/dL (6.4-8.2) L 11/15/21 04:05 Albumin 2.5 g/dL (3.4-5.0) L 11/15/21 04:05 Globulin 3.8 g/dL (2.5-4.5) 11/15/21 04:05 Albumin/Globulin Ratio 0.7 Ratio (1.1-2.1) L 11/15/21 04:05 Vitamin B12 386 pg/mL (193-986) 11/12/21 04:00 Folate 11.7 ng/mL (>8.6) 11/12/21 04:00 Specimen Type Catherized urine 11/10/21 04:11 Urine Color Yellow (YELLOW) 11/10/21 04:11 Urine Appearance Turbid (CLEAR) 11/10/21 04:11 Urine pH 6.0 (5.0 - 8.0) 11/10/21 04:11 Ur Specific [place] 1.010 (1.000-1.030) 11/10/21 04:11 Urine Protein 2+ (NEGATIVE) 11/10/21 04:11 Urine Glucose (UA) Negative (NEGATIVE) 11/10/21 04:11 Urine Ketones Negative (NEGATIVE) 11/10/21 04:11 Urine Blood 5+ (NEGATIVE) 11/10/21 04:11 Urine Nitrite Positive (NEGATIVE) 11/10/21 04:11 Urine Bilirubin Negative (NEGATIVE) 11/10/21 04:11 Urine Urobilinogen Normal (NORMAL) 11/10/21 04:11 Ur Leukocyte Esterase 3+ (NEGATIVE) 11/10/21 04:11 Urine RBC 10-20 /HPF (0-3) A 11/10/21 04:11 Urine WBC 30-50 /HPF (0-5) A 11/10/21 04:11 Ur Squamous Epith Cells Few /HPF (NEGATIVE) 11/10/21 04:11 Amorphous Sediment 1+ /HPF (NEGATIVE) 11/10/21 04:11 Urine Bacteria 2+ /HPF (NEGATIVE) 11/10/21 04:11 Other Casts Few /LPF (NEGATIVE) 11/10/21 04:11 Urine Mucus Moderate /HPF (NEGATIVE) 11/10/21 04:11 Ur Culture Indicated? Yes/culture set up 11/10/21 04:11 SARS-CoV-2 (PCR) Negative (NEGATIVE) 11/09/21 20:48 Influenza Type A (PCR) Negative (NEGATIVE) 11/09/21 20:48 Influenza Type B (PCR) Negative (NEGATIVE) 11/09/21 20:48 RSV (PCR) Negative (NEGATIVE) 11/09/21 20:48 - Plan (1) Lobar pneumonia Status: Acute Plan: SUPPLEMENTAL OXYGEN, IV FLUIDS, IV ANTIBIOTICS, NEBULIZER TREATMENTS, CARDIZEM CD 360MG PO DAILY, BENICAR 20MG PO DAILY, RESUME HOME MEDS, CONTINUE TO MONITOR (2) Acute exacerbation of chronic obstructive pulmonary disease Status: Acute (3) UTI (urinary tract infection) Status: Acute Qualifiers: Urinary tract infection type: acute cystitis Hematuria presence: with hematuria Qualified Code(s): N30.01 - Acute cystitis with hematuria (4) Weakness Status: Acute (5) CAD (coronary artery disease) Status: Chronic Qualifiers: Coronary Disease-Associated Artery/Lesion type: [place] artery [place] vs. transplanted heart: [place] heart Associated angina: with stable angina Qualified Code(s): I25.118 - Atherosclerotic heart disease of [place] coronary artery with other forms of angina pectoris (6) CKD (chronic kidney disease) stage 3, GFR 30-59 ml/min Status: Chronic Qualifiers: Chronic kidney disease stage 3 subtype: stage 3b (GFR 30-44) Qualified Code(s): N18.32 - Chronic kidney disease, stage 3b (7) Hypertension Status: Chronic Qualifiers: Hypertension type: primary hypertension Qualified Code(s): I10 - Essential (primary) hypertension (8) Hypothyroidism Status: Chronic Qualifiers: Hypothyroidism type: acquired Qualified Code(s): E03.9 - Hypothyroidism, unspecified
[2021-11-15] MEDS ORDERED: NS 250 ML IV 250 ML IV ONE (11:35)
[2021-11-15] MEDS: NovoLIN R (or HumuLIN R) SC PRN ×2 (11:50→17:12)
[2021-11-15] MEDS ORDERED: MAALOX or MYLANTA PO PRN (13:43)
[2021-11-15 15:41] VITALS: BMI 26.3
[2021-11-15] MEDS: K-DUR TAB 20 MEQ PO PRN (20:03)
[2021-11-15] MEDS: LEVAQUIN PREMIX IV 750 MG 750 MG/150 ML BAG IV SCH (20:05)
[2021-11-15] MEDS: NEURONTIN CAP 100 MG PO SCH (20:05)
[2021-11-15] MEDS: SNACK - Diabetic Appropriate PO SCH (20:05)
[2021-11-16] MEDS: DUONEB 0.5 MG/3 MG (3 mL) NEB SCH ×6 (00:25→20:45)
[2021-11-16] MEDS: TYLENOL 325 MG TAB PO PRN (02:53)
[2021-11-16 05:20] LABS: BASOPHILS % (AUTO) 0.1 % (0.2-1.0); HEMATOCRIT 26.9 % (36.0-47.0); HEMOGLOBIN 8.9 g/dL (12.0-16.0); LYMPHOCYTES # (AUTO) 0.5 X10^3/uL (1.3-2.9); LYMPHOCYTES % (AUTO) 3.9 % (21.0-51.0); MEAN CORPUSCULAR HEMOGLOBIN 25.6 pg (27.0-34.0); MEAN CORPUSCULAR HGB CONC 32.9 g/dL (33.0-35.0); MEAN CORPUSCULAR VOLUME 77.8 fL (80.0-100.0); MEAN PLATELET VOLUME 7.2 fL (7.4-11.0); MONOCYTES # (AUTO) 0.8 x10^3/uL (0.3-0.8); NEUTROPHILS # (AUTO) 11.6 x10^3/uL (2.2-4.8); RED BLOOD COUNT 3.46 X10^6/uL (3.5-5.4); RED CELL DISTRIBUTION WIDTH 16.4 % (11.6-16.5); WHITE BLOOD COUNT 12.9 X10^3/uL (3.6-10.0)
--- NOTE | 2021-11-16 05:28 | RAD ---
PROCEDURE: Chest X-ray 1 View .HISTORY: Pneumonia and dyspnea.TECHNIQUE: AP portable done at 4:51 a.m..COMPARISON: 11/15/2021.TECHNICAL QUALITY: Satisfactory .FINDINGS:Unchanged left internal jugular Port-A-Cath with the tip in the right atrium.Normal size heart.Mediastinum and hilar regions show no masses or lymphadenopathy .Normal central vascularity .No pulmonary consolidation, masses, pleural fluid, or pneumothorax .Total right shoulder arthroplasty.IMPRESSION:No active cardiopulmonary disease .Electronically signed by: Aly Stevens (Nov 16, 2021 05:27:20)
[2021-11-16 05:35] LABS: ALANINE AMINOTRANSFERASE 60 Units/L (12-78); ALBUMIN 2.2 g/dL (3.4-5.0); ALKALINE PHOSPHATASE 58 Units/L (46-116); ASPARTATE AMINO TRANSFERASE 18 Units/L (15-37); BLOOD UREA NITROGEN 23 mg/dL (7-18); CALCIUM 7.8 mg/dL (8.5-10.1); CARBON DIOXIDE 28.6 mmol/L (21-32); CHLORIDE 104 mmol/L (98-107); COR CA(FOR HYPOALB) 9.2 mg/dL (8.5-10.1); COR NA(FOR HYPERGLY) 139 mmol/L (136-145); MAGNESIUM 1.8 mg/dL (1.7-2.9); SODIUM 138 mmol/L (136-145); TOTAL PROTEIN 5.4 g/dL (6.4-8.2); eGFR NON BLACK RACES > 60 (>60)
[2021-11-16] MEDS ORDERED: NS 1/2 1,000 ML IV 1,000 ML IV ONE (05:37)
[2021-11-16] MEDS: SOLU-Medrol 40 MG VIAL IVP SCH ×3 (06:00→21:34)
[2021-11-16] MEDS: ZOSYN VIAL 4.5 GRAMS 4.5 G in NS 100 ML IV 100 ML IV SCH ×3 (06:00→21:34)
[2021-11-16] MEDS: NS IV SCH ×3 (06:12→23:46)
[2021-11-16] MEDS: K-DUR TAB 20 MEQ PO PRN (06:29)
[2021-11-16] MEDS: PULMICORT NEB TX 0.5 MG NEB SCH ×2 (08:50→20:45)
--- NOTE | 2021-11-16 09:36 | PCM.PROG ---
Progress Note - Progress Note for Day of Date of Exam: 11/16/21 - Subjective Subjective: IS CURRENTLY INPATIENT STATUS FOR TREATMENT OF MULTILOBAR PNEUMONIA, COPD EXACERBATION, UTI, HTN, AND GENERALIZED WEAKNESS. TODAY, SHE IS ALERT AND ORIENTED, SITTING UP IN BED ON MORNING ROUNDS. SHE CONTINUES TO COMPLAIN OF SHORTNESS OF BREATH AT TIMES, BUT REPORTS SOME IMPROVEMENT IN SYMPTOMS SINCE YESTERDAY. SHE IS CURRENTLY UTILIZING OXYGEN VIA NASAL CANNUAL AT 2 LPM. SATURATIONS HAVE BEEN IN THE 90s. HER BLOOD PRESSURE HAS REMAINED ELEVATED SINCE ADDING BENICAR 20 DAILY. ON EXAMINATION, HEART IS REGULAR IN RATE AND RHYTHM. DIMINISHED LUNG SOUNDS NOTED IN ALL QUADRANTS. ABDOMEN IS ROUND, SOFT, AND NON-TENDER WITH NORMAL BOWEL SOUNDS NOTED IN ALL QUADRANTS. NO UPPER OR LOWER EXTREMITY EDEMA NOTED. HER VITALS THIS MORNING ARE: 98.4-68-13-100%-175/86. LABS WERE OBTAINED. WBC 12.9, RBC 3.46, HGB 8.9, HCT 26.9, SODIUM 138, POTASSIUM 3.7, CHLORIDE 104, BUN 23, CREATININE 0.80, GLUCOSE 152, CALCIUM 7.8, MAGNESIUM 1.8, TOTAL PROTEIN 5.4, ALBUMIN 2.2. URINE CULTURE IS POSITIVE FOR GROWTH OF E.COLI. SPUTUM CULTURE IS POSITIVE FOR GROWTH OF STAPHYLOCOCCUS AUREUS. SHE IS CURRENTLY RECEIVING 1/2NS AT 75 ML/HR, LEVAQUIN 750MG IV DAILY, ZOSYN 4.5G IV TID, DIFLUCAN 200MG IV DAILY, DUONEBS Q4H, PULMICORT NEBS BID, SOLU-MEDROL 20MG IV Q8H, TUSSIONEX 5ML PO Q12H PRN, BENICAR 20MG DAILY, OTBS ACHS, HUMULIN R SLIDING SCALE, VSL 2 CAPSULES DAILY, ROBITUSSIN DM 10ML PO QID, THE POTASSIUM AND MAGNESIUM PROTOCOLS, CARDIZEM CD 360MG PO DAILY, AND HER HOME MEDICATIONS WERE RESUMED. TODAY, WE WILL INCREASE BENICAR TO 40MG PO DAILY. OTHERWISE, WE WILL FOLLOW-UP WITH AM LABS AND CONTINUE TO MONITOR. TIME SPENT ON CLINICAL ASSESSMENT, REVIEWING LABS AND IMAGING, DECISION MAKING, AND DOCUMENTATION GREATER THAN 45 MINUTES. - Past Medical Family Social History Past Med/Fam/Surg Hx: No changes since H&P Allergies: Allergies morphine Allergy (Verified 08/06/20 13:53) rofecoxib [From Vioxx] Allergy (Verified 08/06/20 13:53) - Review of Systems ROS: No change since H&P - Vital Signs and I&O's Vital Signs: Temperature 98.4 F Pulse Rate [Right Brachial] 74 Pulse Rate 83 Respiratory Rate 13 Blood Pressure [Right Arm] 213/98 Blood Pressure [Left Arm] 213/99 Blood Pressure 175/86 O2 Sat by Pulse Oximetry 98 Intake and Output: Intake & Output 11/13/21 11/14/21 11/15/21 11/16/21 11:59 11:59 11:59 11:59 Intake Total 1842 / 184 1890 / 1890 2572 / 2572 3547 / 3547 Balance 184 / 184 1890 / 1890 2572 / 2572 3547 / 3547 - Physical Exam Oriented: Normal Eyes: Normal Ear: Normal Nose: Normal Throat: Normal Respiratory: Generalized, Diminished Cardiovascular: Normal : Normal Auscultation: Bowel Sounds: Normal Palpation: Normal Tenderness: Normal Skin: Normal Musculoskeletal: Normal Psychiatric: Normal Mood Description: Calm Affect: Normal Speech Pattern: Clear, Appropriate - Laboratory and Diagnostics Result Diagrams: 11/16/21 04:20 11/16/21 04:20 Labs: 11/09/21 21:30 Blood Blood Culture - Final 11/09/21 21:21 Blood Blood Culture - Final 11/10/21 00:01 Sputum - Expectorated Sputum Sputum Culture - Final Staphylococcus Aureus 11/10/21 00:01 Sputum - Expectorated Sputum - Final 11/10/21 04:11 Urine,Catheterized Urine Culture - Final Escherichia Coli Laboratory WBC 12.9 X10^3/uL (3.6-10.0) H 11/16/21 04:20 RBC 3.46 X10^6/uL (3.5-5.4) L 11/16/21 04:20 Hgb 8.9 g/dL (12.0-16.0) L 11/16/21 04:20 Hct 26.9 % (36.0-47.0) L 11/16/21 04:20 MCV 77.8 fL (80.0-100.0) L 11/16/21 04:20 MCH 25.6 pg (27.0-34.0) L 11/16/21 04:20 MCHC 32.9 g/dL (33.0-35.0) L 11/16/21 04:20 RDW 16.4 % (11.6-16.5) 11/16/21 04:20 Plt Count 336 X10^3/uL (150.0-450.0) 11/16/21 04:20 Plt Count Comment Adequate (ADEQUATE) 11/13/21 04:20 MPV 7.2 fL (7.4-11.0) L 11/16/21 04:20 Neut % (Auto) 90.0 % (42.0-75.0) H 11/16/21 04:20 Lymph % (Auto) 3.9 % (21.0-51.0) L 11/16/21 04:20 [place] % (Auto) 6.0 % (0.0-13.0) 11/16/21 04:20 Eos % (Auto) 0.0 % (0.9-2.9) L 11/16/21 04:20 Baso % (Auto) 0.1 % (0.2-1.0) L 11/16/21 04:20 Neut # (Auto) 11.6 x10^3/uL (2.2-4.8) H 11/16/21 04:20 Lymph # (Auto) 0.5 X10^3/uL (1.3-2.9) L 11/16/21 04:20 [place] # (Auto) 0.8 x10^3/uL (0.3-0.8) 11/16/21 04:20 Eos # (Auto) 0.0 x10^3/uL (0.0-0.2) 11/16/21 04:20 Baso # (Auto) 0.0 X10^3/uL (0.0-0.1) 11/16/21 04:20 Absolute Nucleated RBC 0.1 /100WBC 11/16/21 04:20 Total Counted 100 11/13/21 04:20 Neutrophils % (Manual) 90 % (39-76) H 11/13/21 04:20 Band Neutrophils % 1 % (0-10) 11/12/21 04:00 Lymphocytes % (Manual) 5 % (13-43) L 11/13/21 04:20 Monocytes % (Manual) 5 % (4-9) 11/13/21 04:20 Eosinophils % (Manual) 3 % (0-6) 11/10/21 04:25 Metamyelocytes % 1 11/10/21 04:25 Atypical Lymphocytes Few A 11/10/21 04:25 Plt Morphology Comment Normal (NORMAL) 11/13/21 04:20 RBC Morphology Abnormal (NORMAL) A 11/13/21 04:20 Hypochromasia Slight A 11/13/21 04:20 Anisocytosis Slight A 11/12/21 04:00 Microcytosis Slight A 11/13/21 04:20 Target Cells Slight A 11/13/21 04:20 Schistocytes Present 11/10/21 04:25 Sodium 138 mmol/L (136-145) 11/16/21 04:20 Corrected Sodium 139 mmol/L (136-145) 11/16/21 04:20 Potassium 3.7 mmol/L (3.5-5.1) 11/16/21 04:20 Chloride 104 mmol/L (98-107) 11/16/21 04:20 Carbon Dioxide 28.6 mmol/L (21-32) 11/16/21 04:20 BUN 23 mg/dL (7-18) H 11/16/21 04:20 Creatinine 0.80 mg/dL (0.55-1.02) 11/16/21 04:20 Est GFR (MDRD) Af Amer > 60 (>60) 11/16/21 04:20 Est GFR (MDRD) Non-Af > 60 (>60) 11/16/21 04:20 Glucose 152 mg/dL (65-99) H 11/16/21 04:20 POC Glucose (mg/dL) 139 mg/dL (65-99) H 11/15/21 19:56 Calcium 7.8 mg/dL (8.5-10.1) L 11/16/21 04:20 Corrected Calcium 9.2 mg/dL (8.5-10.1) 11/16/21 04:20 Magnesium 1.8 mg/dL (1.7-2.9) 11/16/21 04:20 Iron 29 ug/dL (50-175) L 11/12/21 04:00 Transferrin 197 mg/dL (202-364) L 11/12/21 04:00 Ferritin 74 ng/mL (8-252) 11/12/21 04:00 Total Bilirubin 0.20 mg/dL (0.2-1.0) 11/16/21 04:20 AST 18 Units/L (15-37) 11/16/21 04:20 ALT 60 Units/L (12-78) 11/16/21 04:20 Alkaline Phosphatase 58 Units/L (46-116) 11/16/21 04:20 Creatine Kinase 49 Units/L (26-192) 11/15/21 14:36 Troponin I High Sens 14.2 ng/L (4.0-60.0) 11/15/21 14:36 Total Protein 5.4 g/dL (6.4-8.2) L 11/16/21 04:20 Albumin 2.2 g/dL (3.4-5.0) L 11/16/21 04:20 Globulin 3.2 g/dL (2.5-4.5) 11/16/21 04:20 Albumin/Globulin Ratio 0.7 Ratio (1.1-2.1) L 11/16/21 04:20 Vitamin B12 386 pg/mL (193-986) 11/12/21 04:00 Folate 11.7 ng/mL (>8.6) 11/12/21 04:00 Specimen Type Catherized urine 11/10/21 04:11 Urine Color Yellow (YELLOW) 11/10/21 04:11 Urine Appearance Turbid (CLEAR) 11/10/21 04:11 Urine pH 6.0 (5.0 - 8.0) 11/10/21 04:11 Ur Specific [place] 1.010 (1.000-1.030) 11/10/21 04:11 Urine Protein 2+ (NEGATIVE) 11/10/21 04:11 Urine Glucose (UA) Negative (NEGATIVE) 11/10/21 04:11 Urine Ketones Negative (NEGATIVE) 11/10/21 04:11 Urine Blood 5+ (NEGATIVE) 11/10/21 04:11 Urine Nitrite Positive (NEGATIVE) 11/10/21 04:11 Urine Bilirubin Negative (NEGATIVE) 11/10/21 04:11 Urine Urobilinogen Normal (NORMAL) 11/10/21 04:11 Ur Leukocyte Esterase 3+ (NEGATIVE) 11/10/21 04:11 Urine RBC 10-20 /HPF (0-3) A 11/10/21 04:11 Urine WBC 30-50 /HPF (0-5) A 11/10/21 04:11 Ur Squamous Epith Cells Few /HPF (NEGATIVE) 11/10/21 04:11 Amorphous Sediment 1+ /HPF (NEGATIVE) 11/10/21 04:11 Urine Bacteria 2+ /HPF (NEGATIVE) 11/10/21 04:11 Other Casts Few /LPF (NEGATIVE) 11/10/21 04:11 Urine Mucus Moderate /HPF (NEGATIVE) 11/10/21 04:11 Ur Culture Indicated? Yes/culture set up 11/10/21 04:11 SARS-CoV-2 (PCR) Negative (NEGATIVE) 11/09/21 20:48 Influenza Type A (PCR) Negative (NEGATIVE) 11/09/21 20:48 Influenza Type B (PCR) Negative (NEGATIVE) 11/09/21 20:48 RSV (PCR) Negative (NEGATIVE) 11/09/21 20:48 - Plan (1) Lobar pneumonia Status: Acute Plan: SUPPLEMENTAL OXYGEN, IV FLUIDS, IV ANTIBIOTICS, NEBULIZER TREATMENTS, CA RDIZEM CD 360MG PO DAILY, BENICAR 20MG PO DAILY, RESUME HOME MEDS, CONTINUE TO MONITOR (2) Acute exacerbation of chronic obstructive pulmonary disease Status: Acute (3) UTI (urinary tract infection) Status: Acute Qualifiers: Urinary tract infection type: acute cystitis Hematuria presence: with hematuria Qualified Code(s): N30.01 - Acute cystitis with hematuria (4) Weakness Status: Acute (5) CAD (coronary artery disease) Status: Chronic Qualifiers: Coronary Disease-Associated Artery/Lesion type: [place] artery [place] vs. transplanted heart: [place] heart Associated angina: with stable angina Qualified Code(s): I25.118 - Atherosclerotic heart disease of [place] coronary artery with other forms of angina pectoris (6) CKD (chronic kidney disease) stage 3, GFR 30-59 ml/min Status: Chronic Qualifiers: Chronic kidney disease stage 3 subtype: stage 3b (GFR 30-44) Qualified Code(s): N18.32 - Chronic kidney disease, stage 3b (7) Hypertension Status: Chronic Qualifiers: Hypertension type: primary hypertension Qualified Code(s): I10 - Essential (primary) hypertension (8) Hypothyroidism Status: Chronic Qualifiers: Hypothyroidism type: acquired Qualified Code(s): E03.9 - Hypothyroidism, unspecified
[2021-11-16] MEDS: VSL#3 PO SCH (09:44)
[2021-11-16] MEDS: DIFLUCAN 200 MG IV PREMIX* 200 MG/100 ML BAG IV SCH (09:44)
[2021-11-16] MEDS: MILK OF MAGNESIA PO SCH (09:44)
[2021-11-16] MEDS: CARDIZEM CD 360 MG 24-HR PO SCH (09:44)
[2021-11-16] MEDS: COLACE CAP 100 MG PO SCH ×2 (09:44→21:35)
[2021-11-16] MEDS: BENICAR TAB 40 MG PO SCH (09:44)
[2021-11-16] MEDS: ROBITUSSIN DM PO SCH ×4 (09:44→20:05)
[2021-11-16] MEDS: CHECK PATCH XX SCH ×2 (09:45→21:35)
[2021-11-16] MEDS: PERCOCET TAB 5/325 MG PO PRN ×3 (09:45→21:37)
[2021-11-16] MEDS: VOLTAREN 1 % GEL MULTI DOSE TUBE TOP SCH ×2 (09:46→21:34)
[2021-11-16] MEDS: FLONASE NASAL SPRAY ENOSTRIL SCH (09:46)
[2021-11-16] MEDS: NovoLIN R (or HumuLIN R) SC PRN ×3 (11:34→21:37)
[2021-11-16] MEDS: MAGNESIUM SULFATE 1 GRAM/100 mL PREMIX 1 G/100 ML BAG IV PRN ×2 (15:27→17:03)
[2021-11-16] MEDS: SNACK - Diabetic Appropriate PO SCH (20:00)
[2021-11-16] MEDS: LEVAQUIN PREMIX IV 750 MG 750 MG/150 ML BAG IV SCH (20:05)
[2021-11-16] MEDS: TUSSIONEX PENNKINETIC SUSP PO PRN (20:05)
[2021-11-16] MEDS: XANAX PO PRN (20:05)
[2021-11-16] MEDS: NEURONTIN CAP 100 MG PO SCH (20:06)
[2021-11-16] MEDS: CATAPRES TAB 0.1 MG PO PRN (21:32)
[2021-11-17] MEDS ORDERED: NS 1/2 1,000 ML IV 1,000 ML IV ONE (00:51)
[2021-11-17] MEDS ORDERED: NS 250 ML IV 250 ML IV ONE (00:51)
[2021-11-17] MEDS: DUONEB 0.5 MG/3 MG (3 mL) NEB SCH ×5 (01:15→12:08)
[2021-11-17] MEDS: NS IV SCH (02:24)
[2021-11-17 05:01] LABS: BASOPHILS % (AUTO) 0.1 % (0.2-1.0); HEMATOCRIT 27.7 % (36.0-47.0); LYMPHOCYTES # (AUTO) 0.9 X10^3/uL (1.3-2.9); LYMPHOCYTES % (AUTO) 7.2 % (21.0-51.0); MEAN CORPUSCULAR HEMOGLOBIN 25.4 pg (27.0-34.0); MEAN CORPUSCULAR HGB CONC 32.5 g/dL (33.0-35.0); MEAN CORPUSCULAR VOLUME 78.2 fL (80.0-100.0); MEAN PLATELET VOLUME 6.9 fL (7.4-11.0); MONOCYTES # (AUTO) 0.9 x10^3/uL (0.3-0.8); MONOCYTES % (AUTO) 7.2 % (0.0-13.0); NEUTROPHILS # (AUTO) 11.1 x10^3/uL (2.2-4.8); NEUTROPHILS % (AUTO) 85.5 % (42.0-75.0); RED BLOOD COUNT 3.55 X10^6/uL (3.5-5.4); RED CELL DISTRIBUTION WIDTH 17.1 % (11.6-16.5); WHITE BLOOD COUNT 12.9 X10^3/uL (3.6-10.0)
[2021-11-17 05:10] LABS: ALANINE AMINOTRANSFERASE 44 Units/L (12-78); ALBUMIN 2.4 g/dL (3.4-5.0); ALKALINE PHOSPHATASE 58 Units/L (46-116); ASPARTATE AMINO TRANSFERASE 10 Units/L (15-37); BLOOD UREA NITROGEN 18 mg/dL (7-18); CALCIUM 7.6 mg/dL (8.5-10.1); CARBON DIOXIDE 28.1 mmol/L (21-32); CHLORIDE 104 mmol/L (98-107); COR CA(FOR HYPOALB) 8.9 mg/dL (8.5-10.1); CREATININE 0.75 mg/dL (0.55-1.02); SODIUM 140 mmol/L (136-145); TOTAL PROTEIN 5.6 g/dL (6.4-8.2); eGFR NON BLACK RACES > 60 (>60)
[2021-11-17] MEDS: ZOSYN VIAL 4.5 GRAMS 4.5 G in NS 100 ML IV 100 ML IV SCH (05:52)
[2021-11-17] MEDS: SOLU-Medrol 40 MG VIAL IVP SCH (05:52)
--- NOTE | 2021-11-17 05:55 | RAD ---
PROCEDURE: Chest X-ray 1 View .HISTORY: Follow-up pneumonia with dyspnea.TECHNIQUE: AP portable done at 5:01 a.m..COMPARISON: 11/16/2021.TECHNICAL QUALITY: Satisfactory .FINDINGS:Unchanged left internal jugular Port-A-Cath.Normal size heart.Mediastinum and hilar regions show no masses or lymphadenopathy. Tortuous aorta.Normal central vascularity .No pulmonary consolidation, masses, pleural fluid, or pneumothorax .No acute bony abnormality .IMPRESSION:No active cardiopulmonary disease .Electronically signed by: Aly Stevens (Nov 17, 2021 05:54:01)
[2021-11-17] MEDS: PULMICORT NEB TX 0.5 MG NEB SCH ×2 (08:10→08:15)
[2021-11-17] MEDS: BENICAR TAB 40 MG PO SCH (09:25)
[2021-11-17] MEDS: PERCOCET TAB 5/325 MG PO PRN (09:25)
[2021-11-17] MEDS: COLACE CAP 100 MG PO SCH (09:25)
[2021-11-17] MEDS: VSL#3 PO SCH (09:25)
[2021-11-17] MEDS: CARDIZEM CD 360 MG 24-HR PO SCH (09:26)
[2021-11-17] MEDS: CATAPRES TAB 0.1 MG PO PRN (09:26)
[2021-11-17] MEDS: CHECK PATCH XX SCH (09:26)
[2021-11-17] MEDS: FLONASE NASAL SPRAY ENOSTRIL SCH (09:26)
[2021-11-17] MEDS: VOLTAREN 1 % GEL MULTI DOSE TUBE TOP SCH (09:26)
[2021-11-17] MEDS: DIFLUCAN 200 MG IV PREMIX* 200 MG/100 ML BAG IV SCH (09:32)
[2021-11-17] MEDS: ROBITUSSIN DM PO SCH (09:32)
[2021-11-17] MEDS ORDERED: CATAPRES-TTS-2 TD SCH (10:00)
[2021-11-17] MEDS: NovoLIN R (or HumuLIN R) SC PRN (12:14)
[2021-11-17 12:16] VITALS: BP 182/90
== END 2021-11-17 13:30 | DRG 178 ==
LOC: ER 19:30 → ICU 21:58
PROVIDERS: ADMIT Obstetrics & Gynecology Obstetrics; ATTEND Internal Medicine
DX: R53.1 Weakness; R07.89 Other chest pain; R06.02 Shortness of breath; L89.309 Pressure ulcer of unspecified buttock, unspecified stage; J15.211 Pneumonia due to Methicillin susceptible Staphylococcus aureus; Z20.822 Contact with and (suspected) exposure to COVID-19; N18.32 Chronic kidney disease, stage 3b; N30.01 Acute cystitis with hematuria; E03.8 Other specified hypothyroidism; R79.89 Other specified abnormal findings of blood chemistry; M94.0 Chondrocostal junction syndrome [Tietze]; I25.118 Atherosclerotic heart disease of native coronary artery with other forms of angina pectoris; B96.29 Other Escherichia coli [E. coli] as the cause of diseases classified elsewhere; I12.9 Hypertensive chronic kidney disease with stage 1 through stage 4 chronic kidney disease, or unspecified chronic kidney disease; J44.1 Chronic obstructive pulmonary disease with (acute) exacerbation

== ENCOUNTER 2021-11-24 14:27 | Inpatient (IN) ==
--- NOTE | 2021-11-24 14:44 | DR.SOBA ---
HPI Time Seen Time Seen by Provider: 11/24/21 14:42 Complaints Chief Complaint Doctors Comments: 71 y/o female, resident of [facility], sent over for evaluation. Pt was doing fine today, started feeling poorly after lunch. Developed epigastric pain, palpitations, and shortness of breath. Denies chest pain, cough, fever, chills, nausea, vomiting diarrhea or urinary issues. Reviewed Nurses Notes Reviewed: Yes Source History Provided: Patient PMH PMH Past Medical History: Anxiety, Arthritis, CHF, COPD, Coronary Artery Disease, Depression, Diabetes, Migraines, Hypertension and Hypothyroidism Past Surgical History: Yes Surgical History: Cholecystectomy and Hysterectomy Family History Family Medical History: Diabetes Mellitus and Hypertension Social History Do you use any recreational Drugs:: No ROS Review of Systems Constitutional: Weakness Eyes: No Symptoms Reported ENTM: No Symptoms Reported Respiratoy: Non-Productive Cough and Short of Breath Cardiovascular: No Symptoms Reported Gastrointestinal/Abdominal: Abdominal Pain and Nausea Genitourinary: No Symptoms Reported Neurological: Weakness Musculoskeletal: No Symptoms Reported Integumentary: No Symptoms Reported Hematologic/Lymphatic: No Symptoms Reported Psychiatric: No Symptoms Reported All Other Systems: Reviewed and Negative PE Vital Signs Vitals: Temperature 98.3 F Pulse Rate 127 Respiratory Rate 35 Blood Pressure [Right Arm] 213/98 Blood Pressure [Left Arm] 213/99 Blood Pressure 103/66 O2 Sat by Pulse Oximetry 99 General General Appearance: Alert, In No Apparent Distress, Anxious and In Distress Head Head Exam: Normal Inspection Eyes Eye exam: PERRL and EOMI ENT ENT Exam: Normal Exam and Mucous Membranes Moist Neck Neck Exam: Normal Inspection and Full ROM; negative Tenderness Respiratory Respiratory Exam: Respiratory Distress Respiratory Exam: Bilateral: Clear to Auscultation Cardiovascular Cardiovascular Exam: Regular Rate, Tachycardia and Normal Heart Sounds Extremities Extremities Exam: Normal Inspection; negative Edema Neurologic Neurological Exam: Alert, Oriented X3 and CN II-XII Intact; negative Motor Sensory Deficit Psychiatric Psychiatric Exam: Anxious Skin Skin Exam: Warm and Dry MDM Differential Diagnosis Differential Diagnosis: CHF, Hypertensive Emergency, Mycardial Infarction, Pneumonia and Respiratory Failure COURSE Treatment Treatment: 71 y/o female, suddenly ill over the past few hours. Presents with HTN, tachycardia, respiratory distress. Good pulse ox, on low amount of O2 vis NC. W/u initiated. Given IV fluids, IV diltiazem. 1654 - BP and rate better after ditiazem. No underlying atrial fibrillation. WBC elevated tp 25K. chemistries acceptable. Lactic acid elevated to 3.5, U/a with UTI findings, WBCs TNTC. Pt given IV rocephin, additional IV fluids. Disucssed with her attending, Dr Souza. Will admit. ROR Labs Reviewed Laboratory Results Reviewed?: Yes Result Diagrams: 11/29/21 04:44 11/29/21 04:44 Laboratory: 11/24/21 15:51 Blood Blood Culture - Preliminary 11/24/21 15:28 Blood Blood Culture - Preliminary 11/24/21 16:14 Urine,Catheterized Urine Culture - Final Escherichia Coli WBC 25.4 X10^3/uL (3.6-10.0) H 11/24/21 15:10 RBC 4.65 X10^6/uL (3.5-5.4) 11/24/21 15:10 Hgb 11.9 g/dL (12.0-16.0) L 11/24/21 15:10 Hct 37.4 % (36.0-47.0) 11/24/21 15:10 MCV 80.4 fL (80.0-100.0) 11/24/21 15:10 MCH 25.7 pg (27.0-34.0) L 11/24/21 15:10 MCHC 31.9 g/dL (33.0-35.0) L 11/24/21 15:10 RDW 17.6 % (11.6-16.5) H 11/24/21 15:10 Plt Count 441 X10^3/uL (150.0-450.0) 11/24/21 15:10 Plt Count Comment Adequate (ADEQUATE) 11/24/21 15:10 MPV 7.3 fL (7.4-11.0) L 11/24/21 15:10 Neut % (Auto) 77.2 % (42.0-75.0) H 11/24/21 15:10 Lymph % (Auto) 13.2 % (21.0-51.0) L 11/24/21 15:10 [place] % (Auto) 7.9 % (0.0-13.0) 11/24/21 15:10 Eos % (Auto) 1.4 % (0.9-2.9) 11/24/21 15:10 Baso % (Auto) 0.3 % (0.2-1.0) 11/24/21 15:10 Neut # (Auto) 19.6 x10^3/uL (2.2-4.8) H 11/24/21 15:10 Lymph # (Auto) 3.4 X10^3/uL (1.3-2.9) H 11/24/21 15:10 [place] # (Auto) 2.0 x10^3/uL (0.3-0.8) H 11/24/21 15:10 Eos # (Auto) 0.4 x10^3/uL (0.0-0.2) H 11/24/21 15:10 Baso # (Auto) 0.1 X10^3/uL (0.0-0.1) 11/24/21 15:10 Absolute Nucleated RBC 0.1 /100WBC 11/24/21 15:10 Total Counted 100 11/24/21 15:10 Neutrophils % (Manual) 70 % (39-76) 11/24/21 15:10 Lymphocytes % (Manual) 21 % (13-43) 11/24/21 15:10 Monocytes % (Manual) 8 % (4-9) 11/24/21 15:10 Eosinophils % (Manual) 1 % (0-6) 11/24/21 15:10 Plt Morphology Comment Normal (NORMAL) 11/24/21 15:10 RBC Morphology Normal (NORMAL) 11/24/21 15:10 Sodium 138 mmol/L (136-145) 11/24/21 15:10 Corrected Sodium 139 mmol/L (136-145) 11/24/21 15:10 Potassium 5.0 mmol/L (3.5-5.1) 11/24/21 15:10 Chloride 101 mmol/L (98-107) 11/24/21 15:10 Carbon Dioxide 29.9 mmol/L (21-32) 11/24/21 15:10 BUN 13 mg/dL (7-18) 11/24/21 15:10 Creatinine 1.02 mg/dL (0.55-1.02) 11/24/21 15:10 Est GFR (MDRD) Af Amer > 60 (>60) 11/24/21 15:10 Est GFR (MDRD) Non-Af 56 (>60) L 11/24/21 15:10 Glucose 124 mg/dL (65-99) H 11/24/21 15:10 Lactic Acid 3.5 mmol/L (0.4-2.0) H 11/24/21 15:10 Calcium 9.6 mg/dL (8.5-10.1) 11/24/21 15:10 Corrected Calcium 10.3 mg/dL (8.5-10.1) H 11/24/21 15:10 Total Bilirubin 0.50 mg/dL (0.2-1.0) 11/24/21 15:10 AST 17 Units/L (15-37) 11/24/21 15:10 ALT 24 Units/L (12-78) 11/24/21 15:10 Alkaline Phosphatase 88 Units/L (46-116) 11/24/21 15:10 Creatine Kinase 46 Units/L (26-192) 11/24/21 15:10 Troponin I High Sens 8.8 ng/L (4.0-60.0) 11/24/21 15:10 B-Natriuretic Peptide < 5.0 pg/mL (0-79) 11/24/21 15:10 Total Protein 8.0 g/dL (6.4-8.2) 11/24/21 15:10 Albumin 3.1 g/dL (3.4-5.0) L 11/24/21 15:10 Globulin 4.9 g/dL (2.5-4.5) H 11/24/21 15:10 Albumin/Globulin Ratio 0.6 Ratio (1.1-2.1) L 11/24/21 15:10 Specimen Type Catherized urine 11/24/21 16:14 Urine Color Yellow (YELLOW) 11/24/21 16:14 Urine Appearance Cloudy (CLEAR) 11/24/21 16:14 Urine pH 7.0 (5.0 - 8.0) 11/24/21 16:14 Ur Specific [place] 1.015 (1.000-1.030) 11/24/21 16:14 Urine Protein 2+ (NEGATIVE) 11/24/21 16:14 Urine Glucose (UA) Negative (NEGATIVE) 11/24/21 16:14 Urine Ketones Negative (NEGATIVE) 11/24/21 16:14 Urine Blood 5+ (NEGATIVE) 11/24/21 16:14 Urine Nitrite Negative (NEGATIVE) 11/24/21 16:14 Urine Bilirubin Negative (NEGATIVE) 11/24/21 16:14 Urine Urobilinogen Normal (NORMAL) 11/24/21 16:14 Ur Leukocyte Esterase 3+ (NEGATIVE) 11/24/21 16:14 Urine RBC 30-50 /HPF (0-3) A 11/24/21 16:14 Urine WBC Tntc /HPF (0-5) A 11/24/21 16:14 Ur Squamous Epith Cells Negative /HPF (NEGATIVE) 11/24/21 16:14 Urine Bacteria 4+ /HPF (NEGATIVE) 11/24/21 16:14 Ur Culture Indicated? Yes/culture set up 11/24/21 16:14 SARS CoV-2 RNA Rapid DURGA Negative (NEGATIVE) 11/24/21 16:30 See comments under "Course" EKG Rate: 159 [place]: Normal Rhythm: ST Block: None Hypertrophy: LAE ST: Nonsp Opioid Opioid Risk Tool Age (Can box if 16-45): No History of Preadolescent Sexual Abuse: No Total: 0 Total Score Risk Category: Low Risk Copyright: Miko CASIANO predicting aberrant behaviors Discharge Plan Diagnosis Discharge Problem: Acute UTI Discharge Plan Patient Disposition: 09 ADMITTED INPATIENT Condition: Stable
[2021-11-24] MEDS ORDERED: CARDIZEM INJ 50 MG VIAL IVP ONE (14:45)
[2021-11-24] MEDS ORDERED: NS 500 ML IV 500 ML IV ONE ×4 (14:45→16:56)
[2021-11-24] MEDS ORDERED: CARDIZEM INJ 125 MG VIAL ONE (14:47)
[2021-11-24] MEDS ORDERED: XOPENEX 1.25 MG/3 ML NEBULE NEB ONE ×2 (14:49→14:50)
--- NOTE | 2021-11-24 15:04 | RAD ---
HISTORYSOBSTUDYAP chestCOMPARISONAugust 2021, CTA chest 08/19/2021FINDINGSHeart size normal with arteriosclerotic aorta and stable position of left IJ port extending to the right atrium. Similar extent and distribution of bilateral interstitial disease without evidence for airspace component. No pleural fluid is demonstrated.IMPRESSIONNo change. The stable interstitial findings are likely related to peribronchial fibrosis and scarring.Electronically signed by: ZAC AVENDANO (Nov 24, 2021 15:03:03)
[2021-11-24] MEDS ORDERED: LOPRESSOR INJ 5 MG AMP IVP ONE (15:08)
[2021-11-24] MEDS ORDERED: LOPRESSOR INJ 5 MG AMP ONE (15:09)
[2021-11-24 15:52] LABS: BASOPHILS # (AUTO) 0.1 X10^3/uL (0.0-0.1); BASOPHILS % (AUTO) 0.3 % (0.2-1.0); EOSINOPHILS # (AUTO) 0.4 x10^3/uL (0.0-0.2); EOSINOPHILS % (AUTO) 1.4 % (0.9-2.9); HEMATOCRIT 37.4 % (36.0-47.0); HEMOGLOBIN 11.9 g/dL (12.0-16.0); LYMPHOCYTES # (AUTO) 3.4 X10^3/uL (1.3-2.9); LYMPHOCYTES % (AUTO) 13.2 % (21.0-51.0); MEAN CORPUSCULAR HEMOGLOBIN 25.7 pg (27.0-34.0); MEAN CORPUSCULAR HGB CONC 31.9 g/dL (33.0-35.0); MEAN CORPUSCULAR VOLUME 80.4 fL (80.0-100.0); MEAN PLATELET VOLUME 7.3 fL (7.4-11.0); MONOCYTES % (AUTO) 7.9 % (0.0-13.0); NEUTROPHILS # (AUTO) 19.6 x10^3/uL (2.2-4.8); NEUTROPHILS % (AUTO) 77.2 % (42.0-75.0); RED BLOOD COUNT 4.65 X10^6/uL (3.5-5.4); RED CELL DISTRIBUTION WIDTH 17.6 % (11.6-16.5); WHITE BLOOD COUNT 25.4 X10^3/uL (3.6-10.0)
[2021-11-24 16:04] LABS: LACTIC ACID 3.5 mmol/L (0.4-2.0)
[2021-11-24 16:06] LABS: ALANINE AMINOTRANSFERASE 24 Units/L (12-78); ALBUMIN 3.1 g/dL (3.4-5.0); ALKALINE PHOSPHATASE 88 Units/L (46-116); ASPARTATE AMINO TRANSFERASE 17 Units/L (15-37); BLOOD UREA NITROGEN 13 mg/dL (7-18); CALCIUM 9.6 mg/dL (8.5-10.1); CARBON DIOXIDE 29.9 mmol/L (21-32); CHLORIDE 101 mmol/L (98-107); COR CA(FOR HYPOALB) 10.3 mg/dL (8.5-10.1); COR NA(FOR HYPERGLY) 139 mmol/L (136-145); CREATINE KINASE 46 Units/L (26-192); CREATININE 1.02 mg/dL (0.55-1.02); SODIUM 138 mmol/L (136-145); eGFR NON BLACK RACES 56 (>60)
[2021-11-24 16:08] LABS: PLATELET MORPHOLOGY COMMENT NORMAL (NORMAL)
[2021-11-24] MEDS ORDERED: ROCEPHIN 1 GRAM IV PREMIX 1 G/50 ML IV.SOLN. IV ONE (16:18)
[2021-11-24 16:24] LABS: BILIRUBIN,URINE NEGATIVE (NEGATIVE); BLOOD/HEMOGLOBIN,URINE 5+ (NEGATIVE); GLUCOSE, URINE NEGATIVE (NEGATIVE); KETONES,URINE NEGATIVE (NEGATIVE); LEUKOCYTE ESTERASE ,URINE 3+ (NEGATIVE); NITRITES,URINE NEGATIVE (NEGATIVE); PROTEIN,URINE 2+ (NEGATIVE); UROBILINOGEN,URINE NORMAL (NORMAL)
[2021-11-24 16:26] LABS: APPEARANCE,URINE CLOUDY (CLEAR); COLOR,URINE YELLOW (YELLOW)
[2021-11-24] MEDS ORDERED: ROCEPHIN VIAL 1 GRAM ONE (16:26)
[2021-11-24] MEDS ORDERED: NS 50 ML IV 50 ML IV ONE (16:26)
[2021-11-24 16:36] LABS: BACTERIA,URINE 4+ /HPF (NEGATIVE); RBC,URINE 30-50 /HPF (0-3); SQUAMOUS EPITHELIAL CELL,UR NEGATIVE /HPF (NEGATIVE)
[2021-11-24] MEDS ORDERED: PATIENT'S HOME MEDICATION (Oxycodone-Acetaminophen 7.5-325 mg Tablet) PO PRN (18:12)
[2021-11-24] MEDS ORDERED: ROCEPHIN 1 GRAM IV PREMIX 1 G/50 ML IV.SOLN. IV SCH (18:12)
[2021-11-24] MEDS ORDERED: NovoLIN R (or HumuLIN R) SC SCH (18:12)
[2021-11-24] MEDS ORDERED: MAGNESIUM HYDROXIDE PO SCH (18:12)
[2021-11-24] MEDS ORDERED: [UNRECOGNIZED DRUG - OTHER] PO SCH (18:12)
[2021-11-24] MEDS: CATAPRES-TTS-2 TD SCH (18:31)
[2021-11-24 18:37] VITALS: BMI 23.9
[2021-11-24] MEDS ORDERED: PHARMACY CONSULT LTC MEDICATIONS XX SCH (19:00)
[2021-11-24] MEDS: GLYCOPYRROLATE FORMOTEROL IN SCH (20:57)
[2021-11-24] MEDS: DUONEB 0.5 MG/3 MG (3 mL) NEB SCH (20:57)
[2021-11-24] MEDS: NEURONTIN CAP 100 MG PO SCH (21:16)
[2021-11-24] MEDS: XANAX PO SCH (21:16)
[2021-11-24] MEDS: D5 NS 1,000 ML IV 1,000 ML IV SCH (21:16)
[2021-11-24] MEDS: SNACK - Diabetic Appropriate PO SCH (21:17)
[2021-11-24] MEDS: ROXICODONE TAB 5 MG PO PRN (21:31)
[2021-11-24] MEDS: PERCOCET TAB 5/325 MG PO PRN (21:31)
[2021-11-25 05:22] LABS: BASOPHILS # (AUTO) 0.1 X10^3/uL (0.0-0.1); BASOPHILS % (AUTO) 0.3 % (0.2-1.0); EOSINOPHILS # (AUTO) 0.5 x10^3/uL (0.0-0.2); EOSINOPHILS % (AUTO) 2.3 % (0.9-2.9); LYMPHOCYTES # (AUTO) 1.9 X10^3/uL (1.3-2.9); LYMPHOCYTES % (AUTO) 9.7 % (21.0-51.0); MEAN CORPUSCULAR HEMOGLOBIN 25.4 pg (27.0-34.0); MEAN CORPUSCULAR VOLUME 79.6 fL (80.0-100.0); MEAN PLATELET VOLUME 6.9 fL (7.4-11.0); MONOCYTES # (AUTO) 1.4 x10^3/uL (0.3-0.8); MONOCYTES % (AUTO) 7.4 % (0.0-13.0); NEUTROPHILS # (AUTO) 15.6 x10^3/uL (2.2-4.8); NEUTROPHILS % (AUTO) 80.3 % (42.0-75.0); RED CELL DISTRIBUTION WIDTH 17.4 % (11.6-16.5); WHITE BLOOD COUNT 19.4 X10^3/uL (3.6-10.0)
[2021-11-25 05:28] LABS: LACTIC ACID 1.6 mmol/L (0.4-2.0)
[2021-11-25 05:34] LABS: ALANINE AMINOTRANSFERASE 21 Units/L (12-78); ALBUMIN 2.4 g/dL (3.4-5.0); ALKALINE PHOSPHATASE 71 Units/L (46-116); ASPARTATE AMINO TRANSFERASE 13 Units/L (15-37); BLOOD UREA NITROGEN 19 mg/dL (7-18); CALCIUM 8.8 mg/dL (8.5-10.1); CARBON DIOXIDE 25.9 mmol/L (21-32); CHLORIDE 105 mmol/L (98-107); COR CA(FOR HYPOALB) 10.1 mg/dL (8.5-10.1); COR NA(FOR HYPERGLY) 139 mmol/L (136-145); CREATININE 1.01 mg/dL (0.55-1.02); SODIUM 139 mmol/L (136-145); TOTAL PROTEIN 6.3 g/dL (6.4-8.2); eGFR NON BLACK RACES 57 (>60)
[2021-11-25] MEDS: XANAX PO SCH ×4 (05:48→21:08)
[2021-11-25 05:52] LABS: HEMOGLOBIN 9.9 g/dL (12.0-16.0)
[2021-11-25] MEDS: DUONEB 0.5 MG/3 MG (3 mL) NEB SCH ×4 (08:30→21:02)
[2021-11-25] MEDS: BENICAR TAB 40 MG PO SCH (09:45)
[2021-11-25] MEDS: ROCEPHIN VIAL 1 GRAM 1 G in NS 100 ML IV 100 ML IV SCH (09:45)
[2021-11-25] MEDS: D5 NS 1,000 ML IV 1,000 ML IV SCH ×2 (09:45→22:05)
[2021-11-25] MEDS: CARDIZEM CD 360 MG 24-HR PO SCH (09:46)
[2021-11-25] MEDS: COLACE CAP 100 MG PO SCH (09:46)
[2021-11-25] MEDS: MILK OF MAGNESIA PO SCH (09:46)
[2021-11-25] MEDS: FLONASE NASAL SPRAY ENOSTRIL SCH (09:46)
--- NOTE | 2021-11-25 11:17 | DR.H&P ---
H&P - History & Physical for Day of: H&P Date: 11/24/21 - Chief Complaint Chief Complaint: SUPRAPUBIC PAIN, DYSURIA, HEMATURIA, SOB, WEAKNESS - History of Present Illness History of Present Illness: IS A 71 YEAR OLD PATIENT OF OURS. SHE IS A RESIDENT OF [facility]. SHE WAS SENT TO THE ER FOR EVALUATION DUE TO COMPLAINTS OF SUPRAPUBIC PAIN, DYSURIA, SHORTNESS OF BREATH, AND SEVERE WEAKNESS. SHE DENIED CHEST PAIN, COUGH, FEVER, CHILLS, NAUSEA, VOMITING, OR DIARRHEA. HER SYMPTOMS STARTED ONE DAY PRIOR TO ARRIVAL. PATIENT REPORTS HAVING VISIBLE BLOOD IN URINE. HER PMH INCLUDES: CAD, MD, HYPERTENSION, COPD, GERD, UTIs, DM II, ANXIETY, DEPRESSION, CHOLECYSTECTOMY, HYSTERECTOMY, RIGHT HIP REPLACEMENT, RIGHT SHOULDER REPLACEMENT. ON ARRIVAL TO THE ER, HER VITALS WERE 98.3-156-24-99%-203/114. HER LABS WERE OBTAINED. WBC 25.4, RBC 4.65, HGB 11.9, HCT 37.4, SODIUM 138, POTASSIUM 5.0, CHLORIDE 101, BUN 13, CREATININE 1.02, GLUCOSE 124, LACTIC ACID 3.5, CALCIUM 9.6, AST 17, ALT 24, ALK PHOS 88, CREATINE KINASE 46, TROPONIN 8.8, TOTAL PROTEIN 8.0, ALBUMIN 3.1. A URINALYSIS WAS OBTAINED AND REVEALED: URINE RBC 30-50, WBC TNTC, LEUKOCYTES 3+, BLOOD 5+, PROTEIN 2+. A URINE CULTURE AND BLOOD CULTURES WERE SET UP. COVID-19 NEGATIVE. A CHEST XRAY WAS OBTAINED AND REVEALED: No change. The stable interstitial findings are likely related to peribronchial fibrosis and scarring. EKG REVEALED SINUS TACHYCARDIA WITH HR 159. IN THER ER, SHE WAS GIVEN A NORMAL SALINE BOLUS X 2 LITERS, XOPENEX NEB X 1, CARDIZEM 20MG BOLUS X 1, LOPRESSOR 5MG IV X 1, ROCEPHIN 1G IV X 1. HER BLOOD PRESSURE DECREASED TO 114/55 AND HER HEART RATE DECREASED TO 127. SHE WAS ADMITTED TO THE HOSPITAL FOR FURTHER EVALUATION AND TREATMENT OF SEPSIS, ACUTE UTI, HYPERTENSION. SHE WAS STARTED ON D5NS AT 100 ML/HR, ROCEPHIN 1G IV DAILY, DUONEBS QID, DIFLUCAN 200MG IV DAILY, AND HUMULIN R SLIDING SCALE. HER HOME MEDICATIONS OF XANAX, CLONIDINE, DILTIAZEM, COLACE, DURAGESIC PATCH, FLONASE, GABAPENTIN, MILK OF MAGNESIA, OLMESARTAN, OXYCODONE, AND PERCOCET WERE ALSO RESUMED. OTHERWISE, WE PLAN TO FOLLOW-UP WITH AM LABS AND CONTINUE TO MONITOR. TIME SPENT ON CLINICAL ASSESSMENT, REVIWING LABS AND IMAGING, DECISION MAKING, AND DOCUMENTATION GREATER THAN 75 MINUTES. - Past Medical History Past Medical History: Coronary Artery Disease, Hypertension, Diabetes, Depression, Anxiety, Hypothyroidism, COPD, Arthritis, Migraines, CHF Additional Medical History: Congenital Heart Disease, Asthma, Fibroids, Muscle Weakness, Back Pain, Degenerative Disc Disease - Past Surgical History Surgical History: Cholecystectomy, Hysterectomy - Family History Family Medical History: Diabetes Mellitus, Hypertension - Social History Does patient currently use any type of tobacco product: No Have you used tobacco products in the last 12 months: No Type of Tobacco Use: None Does any household member use tobacco: No Alcohol Use: None Drug Use: Prescription Drugs - Medications Home Medications: morphine Allergy (Verified 08/06/20 13:53) rofecoxib [From Vioxx] Allergy (Verified 08/06/20 13:53) CONTINUE taking the following medications levalbuterol HCl 0.31 mg/3 mL solution for nebulization 0.31 mg inhalation QID 11/24/21 [History] - Review of Systems Constitutional: Weakness Eyes: No Symptoms Reported ENT: No Symptoms Reported Respiratory: Shortness of Breath Cardiovascular: No Symptoms Reported Gastrointestinal: Abdominal Pain Genitourinary: See HPI, Dysuria, Hematuria Musculoskeletal: No Symptoms Reported Skin: No Symptoms Reported Neurological: Weakness - Physical Exam Vital Signs: Temperature 98.3 F Pulse Rate [Right Radial] 112 Pulse Rate 104 Respiratory Rate 31 Blood Pressure [Right Arm] 108/65 Blood Pressure [Left Arm] 213/99 Blood Pressure 120/66 O2 Sat by Pulse Oximetry 96 Oriented: Normal Eyes: Normal Ear: Normal Nose: Normal Throat: Normal Respiratory: Diminished Throughout Cardiovascular: Tachycardia : Hematuria Auscultation: Bowel Sounds: Normal Palpation: Normal Tenderness: Suprapubic Skin: Normal Musculoskeletal: Normal Psychiatric: Normal Mood Description: Calm Affect: Normal Speech Pattern: Clear - Assessment/Plan (1) Sepsis Qualifiers: Sepsis type: sepsis due to unspecified organism Sepsis acute organ dysfunction status: without acute organ dysfunction Qualified Code(s): A41.9 - Sepsis, unspecified organism Status: Acute Plan: ADMIT, D5NS AT 100 ML/HR, ROCEPHIN 1G IV DAILY, DUONEBS QID, DIFLUCAN 200MG IV DAILY, AND HUMULIN R SLIDING SCALE. RESUME HOME MEDS (2) Urinary tract infection Qualifiers: Urinary tract infection type: acute cystitis Hematuria presence: with hematuria Qualified Code(s): N30.01 - Acute cystitis with hematuria Status: Acute (3) COPD (chronic obstructive pulmonary disease) Qualifiers: COPD type: unspecified COPD Status: Chronic (4) CAD (coronary artery disease) Qualifiers: Coronary Disease-Associated Artery/Lesion type: [place] artery [place] vs. transplanted heart: [place] heart Associated angina: unspecified whether angina present Qualified Code(s): I25.10 - Atherosclerotic heart disease of [place] coronary artery without angina pectoris Status: Chronic (5) Hypertension Qualifiers: Hypertension type: primary hypertension Status: Chronic (6) Anxiety Status: Chronic (7) Arthritis Status: Chronic - Allergies Allergies/Adverse Reactions: Allergies Allergy/AdvReac Type Severity Reaction Status Date / Time morphine Allergy Verified 08/06/20 13:53 rofecoxib [From Vioxx] Allergy Verified 08/06/20 13:53
[2021-11-25] MEDS ORDERED: BUTT CREAM (COMPOUND) TOP PRN (12:26)
[2021-11-25] MEDS ORDERED: BUTT CREAM (COMPOUND) ONE (12:32)
[2021-11-25] MEDS: DIFLUCAN 200 MG IV PREMIX* 200 MG/100 ML BAG IV SCH (12:46)
[2021-11-25] MEDS ORDERED: ROBITUSSIN DM ONE (15:19)
[2021-11-25] MEDS: ROBITUSSIN DM PO PRN (15:23)
[2021-11-25] MEDS: PERCOCET TAB 5/325 MG PO PRN ×2 (15:24→21:07)
[2021-11-25] MEDS: SNACK - Diabetic Appropriate PO SCH (21:00)
[2021-11-25] MEDS: NEURONTIN CAP 100 MG PO SCH (21:08)
[2021-11-25] MEDS: ROXICODONE TAB 5 MG PO PRN (21:09)
[2021-11-26] MEDS: XANAX PO SCH ×3 (05:14→21:00)
[2021-11-26 05:29] LABS: BASOPHILS # (AUTO) 0.1 X10^3/uL (0.0-0.1); BASOPHILS % (AUTO) 0.8 % (0.2-1.0); EOSINOPHILS # (AUTO) 0.4 x10^3/uL (0.0-0.2); EOSINOPHILS % (AUTO) 3.8 % (0.9-2.9); HEMATOCRIT 25.4 % (36.0-47.0); HEMOGLOBIN 8.3 g/dL (12.0-16.0); LYMPHOCYTES # (AUTO) 1.7 X10^3/uL (1.3-2.9); LYMPHOCYTES % (AUTO) 17.4 % (21.0-51.0); MEAN CORPUSCULAR HGB CONC 32.6 g/dL (33.0-35.0); MEAN CORPUSCULAR VOLUME 79.8 fL (80.0-100.0); MEAN PLATELET VOLUME 7.2 fL (7.4-11.0); MONOCYTES # (AUTO) 0.8 x10^3/uL (0.3-0.8); MONOCYTES % (AUTO) 8.6 % (0.0-13.0); NEUTROPHILS # (AUTO) 6.8 x10^3/uL (2.2-4.8); NEUTROPHILS % (AUTO) 69.4 % (42.0-75.0); RED BLOOD COUNT 3.18 X10^6/uL (3.5-5.4); RED CELL DISTRIBUTION WIDTH 17.2 % (11.6-16.5)
[2021-11-26 05:38] LABS: ALANINE AMINOTRANSFERASE 17 Units/L (12-78); ALBUMIN 2.2 g/dL (3.4-5.0); ALKALINE PHOSPHATASE 63 Units/L (46-116); ASPARTATE AMINO TRANSFERASE 10 Units/L (15-37); BLOOD UREA NITROGEN 15 mg/dL (7-18); CALCIUM 8.5 mg/dL (8.5-10.1); CARBON DIOXIDE 26.9 mmol/L (21-32); CHLORIDE 107 mmol/L (98-107); COR CA(FOR HYPOALB) 9.9 mg/dL (8.5-10.1); CREATININE 0.86 mg/dL (0.55-1.02); SODIUM 141 mmol/L (136-145); TOTAL PROTEIN 5.9 g/dL (6.4-8.2); eGFR NON BLACK RACES > 60 (>60)
[2021-11-26 05:42] LABS: WHITE BLOOD COUNT 9.7 X10^3/uL (3.6-10.0)
[2021-11-26] MEDS: DIFLUCAN 200 MG IV PREMIX* 200 MG/100 ML BAG IV SCH (08:20)
[2021-11-26] MEDS: ROCEPHIN VIAL 1 GRAM 1 G in NS 100 ML IV 100 ML IV SCH (08:22)
[2021-11-26] MEDS: CARDIZEM CD 360 MG 24-HR PO SCH (08:22)
[2021-11-26] MEDS: BENICAR TAB 40 MG PO SCH (08:22)
[2021-11-26] MEDS: COLACE CAP 100 MG PO SCH (08:24)
[2021-11-26] MEDS: FLONASE NASAL SPRAY ENOSTRIL SCH (08:24)
[2021-11-26] MEDS: DUONEB 0.5 MG/3 MG (3 mL) NEB SCH ×4 (08:55→20:10)
[2021-11-26] MEDS: PERCOCET TAB 5/325 MG PO PRN ×2 (09:16→20:00)
[2021-11-26] MEDS: ROXICODONE TAB 5 MG PO PRN ×2 (09:17→20:00)
[2021-11-26] MEDS: D5 NS 1,000 ML IV 1,000 ML IV SCH ×2 (18:40→23:02)
[2021-11-26] MEDS: SNACK - Diabetic Appropriate PO SCH (20:00)
[2021-11-26] MEDS: NEURONTIN CAP 100 MG PO SCH (21:00)
[2021-11-26] MEDS: ROBITUSSIN DM PO PRN (21:00)
[2021-11-27 05:18] LABS: BASOPHILS # (AUTO) 0.1 X10^3/uL (0.0-0.1); BASOPHILS % (AUTO) 0.7 % (0.2-1.0); EOSINOPHILS # (AUTO) 0.3 x10^3/uL (0.0-0.2); EOSINOPHILS % (AUTO) 4.6 % (0.9-2.9); HEMOGLOBIN 8.6 g/dL (12.0-16.0); LYMPHOCYTES # (AUTO) 1.7 X10^3/uL (1.3-2.9); LYMPHOCYTES % (AUTO) 22.6 % (21.0-51.0); MEAN CORPUSCULAR HEMOGLOBIN 26.3 pg (27.0-34.0); MEAN CORPUSCULAR HGB CONC 33.1 g/dL (33.0-35.0); MEAN CORPUSCULAR VOLUME 79.2 fL (80.0-100.0); MEAN PLATELET VOLUME 7.1 fL (7.4-11.0); MONOCYTES # (AUTO) 0.6 x10^3/uL (0.3-0.8); MONOCYTES % (AUTO) 8.3 % (0.0-13.0); NEUTROPHILS # (AUTO) 4.7 x10^3/uL (2.2-4.8); NEUTROPHILS % (AUTO) 63.8 % (42.0-75.0); RED BLOOD COUNT 3.28 X10^6/uL (3.5-5.4); WHITE BLOOD COUNT 7.3 X10^3/uL (3.6-10.0)
[2021-11-27 05:29] LABS: ALANINE AMINOTRANSFERASE 14 Units/L (12-78); ALBUMIN 2.3 g/dL (3.4-5.0); ALKALINE PHOSPHATASE 64 Units/L (46-116); ASPARTATE AMINO TRANSFERASE 8 Units/L (15-37); BLOOD UREA NITROGEN 12 mg/dL (7-18); CALCIUM 8.8 mg/dL (8.5-10.1); CARBON DIOXIDE 27.9 mmol/L (21-32); CHLORIDE 107 mmol/L (98-107); COR CA(FOR HYPOALB) 10.2 mg/dL (8.5-10.1); CREATININE 0.94 mg/dL (0.55-1.02); SODIUM 142 mmol/L (136-145); TOTAL PROTEIN 6.2 g/dL (6.4-8.2); eGFR NON BLACK RACES > 60 (>60)
[2021-11-27] MEDS: XANAX PO SCH ×3 (07:00→21:23)
[2021-11-27] MEDS: DUONEB 0.5 MG/3 MG (3 mL) NEB SCH ×4 (08:25→21:27)
[2021-11-27] MEDS: CARDIZEM CD 360 MG 24-HR PO SCH (09:30)
[2021-11-27] MEDS: ROCEPHIN VIAL 1 GRAM 1 G in NS 100 ML IV 100 ML IV SCH (09:31)
[2021-11-27] MEDS: DIFLUCAN 200 MG IV PREMIX* 200 MG/100 ML BAG IV SCH (09:32)
[2021-11-27] MEDS: COLACE CAP 100 MG PO SCH (09:32)
[2021-11-27] MEDS: FLONASE NASAL SPRAY ENOSTRIL SCH (09:32)
[2021-11-27] MEDS: BENICAR TAB 40 MG PO SCH (09:32)
[2021-11-27] MEDS: PERCOCET TAB 5/325 MG PO PRN (11:18)
[2021-11-27] MEDS: ROXICODONE TAB 5 MG PO PRN (11:27)
[2021-11-27] MEDS ORDERED: SOLU-Medrol 40 MG VIAL IVP ONE (11:29)
[2021-11-27] MEDS ORDERED: LASIX IVP ONE (11:29)
[2021-11-27] MEDS ORDERED: K-DUR TAB 20 MEQ PO ONE (11:30)
[2021-11-27] MEDS: MILK OF MAGNESIA PO SCH (11:38)
[2021-11-27] MEDS: D5 NS 1,000 ML IV 1,000 ML IV SCH (13:11)
[2021-11-27] MEDS: ROBITUSSIN DM PO PRN ×2 (15:28→21:22)
--- NOTE | 2021-11-27 16:48 | RAD ---
EXAM: CHEST X-RAYHISTORY: Shortness of breath.TECHNIQUE: AP chest x-ray dated November 27, 2021 at 4:03 PM.COMPARISON: CXR dated November 24, 2021 at 2:49 PM.FINDINGS:The heart size and mediastinum are within normal limits. The visualized bony structures are within normal limits.There is mild asymmetrical prominence of the bronchopulmonary markings in the right lung (with interval progression of changes compared with the previous exam) in keeping with bronchitis or early bronchopneumonia in the appropriate clinical setting; DDX includes mild asymmetrical noncardiogenic pulmonary congestion in the appropriate clinical setting. Clinical correlation is advised.No focal lung consolidation/mass, pleural effusion, or pneumothorax is seen. A left anterior chest wall chest port is again noted in situ with the distal tip in the right atrium. Status post total right shoulder replacement.IMPRESSION:1. Mild asymmetrical prominence of the bronchopulmonary markings in the right lung (with interval progression of changes compared with the previous exam) in keeping with bronchitis or early bronchopneumonia in the appropriate clinical setting; DDX includes mild asymmetrical noncardiogenic pulmonary congestion in the appropriate clinical setting. Clinical correlation is advised.2. Recommend clinical correlation and appropriate follow-up x-ray evaluation to ensure interval clearance as clinically warranted.3. Consider follow evaluation with noncontrast chest CT for further characterization as clinically warranted.Electronically signed by: David Ceja (Nov 27, 2021 16:47:01)
[2021-11-27] MEDS: NEURONTIN CAP 100 MG PO SCH (21:23)
[2021-11-27] MEDS: CATAPRES-TTS-2 TD SCH (21:23)
[2021-11-27] MEDS: GLYCOPYRROLATE FORMOTEROL IN SCH (21:26)
[2021-11-27] MEDS: SNACK - Diabetic Appropriate PO SCH (22:38)
[2021-11-28] MEDS ORDERED: DUONEB 0.5 MG/3 MG (3 mL) NEB ONE (00:03)
[2021-11-28] MEDS: D5 NS 1,000 ML IV 1,000 ML IV SCH ×2 (01:44→15:25)
[2021-11-28 05:22] LABS: BASOPHILS % (AUTO) 0.2 % (0.2-1.0); HEMATOCRIT 28.4 % (36.0-47.0); HEMOGLOBIN 9.4 g/dL (12.0-16.0); LYMPHOCYTES % (AUTO) 10.9 % (21.0-51.0); MEAN CORPUSCULAR HEMOGLOBIN 26.3 pg (27.0-34.0); MEAN CORPUSCULAR HGB CONC 33.1 g/dL (33.0-35.0); MEAN CORPUSCULAR VOLUME 79.2 fL (80.0-100.0); MEAN PLATELET VOLUME 7.2 fL (7.4-11.0); MONOCYTES # (AUTO) 0.3 x10^3/uL (0.3-0.8); MONOCYTES % (AUTO) 3.4 % (0.0-13.0); NEUTROPHILS # (AUTO) 7.7 x10^3/uL (2.2-4.8); NEUTROPHILS % (AUTO) 85.5 % (42.0-75.0); RED BLOOD COUNT 3.58 X10^6/uL (3.5-5.4); RED CELL DISTRIBUTION WIDTH 16.7 % (11.6-16.5)
[2021-11-28 05:41] LABS: ALANINE AMINOTRANSFERASE 16 Units/L (12-78); ALBUMIN 2.5 g/dL (3.4-5.0); ALKALINE PHOSPHATASE 75 Units/L (46-116); ASPARTATE AMINO TRANSFERASE 8 Units/L (15-37); BLOOD UREA NITROGEN 12 mg/dL (7-18); CALCIUM 9.1 mg/dL (8.5-10.1); CARBON DIOXIDE 28.6 mmol/L (21-32); CHLORIDE 105 mmol/L (98-107); COR CA(FOR HYPOALB) 10.3 mg/dL (8.5-10.1); COR NA(FOR HYPERGLY) 143 mmol/L (136-145); SODIUM 142 mmol/L (136-145); eGFR NON BLACK RACES > 60 (>60)
[2021-11-28] MEDS: XANAX PO SCH ×4 (05:58→21:00)
[2021-11-28] MEDS ORDERED: PULMICORT NEB TX 0.5 MG NEB ONE (08:05)
[2021-11-28] MEDS: PERCOCET TAB 5/325 MG PO PRN ×3 (08:25→23:31)
[2021-11-28] MEDS: PULMICORT NEB TX 0.5 MG NEB SCH ×2 (08:30→20:30)
[2021-11-28] MEDS: DUONEB 0.5 MG/3 MG (3 mL) NEB SCH ×4 (08:30→20:30)
--- NOTE | 2021-11-28 09:23 | RAD ---
HISTORYCOUGH, WHEEZING, SOBSTUDYCHEST x-ray, 1 VIEWCOMPARISONX-ray 11/27/2021FINDINGSPort catheter terminates in the right atrium of the heart. The heart is normal in size. There is probable COPD. There are abnormal interstitial densities in the lungs, right greater than left. Mild linear atelectasis is seen in the lingula and left lung base, unchanged. No pneumothorax or pleural effusion is seen.IMPRESSIONAppearance of the chest is unchanged.Electronically signed by: Lazaro Modi (Nov 28, 2021 09:21:27)
[2021-11-28] MEDS: ROCEPHIN VIAL 1 GRAM 1 G in NS 100 ML IV 100 ML IV SCH (09:26)
[2021-11-28] MEDS: ROXICODONE TAB 5 MG PO PRN ×2 (09:27→16:47)
[2021-11-28] MEDS: DIFLUCAN 200 MG IV PREMIX* 200 MG/100 ML BAG IV SCH (09:27)
[2021-11-28] MEDS: CARDIZEM CD 360 MG 24-HR PO SCH (09:28)
[2021-11-28] MEDS: ROBITUSSIN DM PO PRN ×2 (09:28→14:25)
[2021-11-28] MEDS: COLACE CAP 100 MG PO SCH (09:28)
[2021-11-28] MEDS: FLONASE NASAL SPRAY ENOSTRIL SCH (09:29)
[2021-11-28] MEDS: BENICAR TAB 40 MG PO SCH (09:32)
[2021-11-28] MEDS: SNACK - Diabetic Appropriate PO SCH (20:59)
[2021-11-28] MEDS: NEURONTIN CAP 100 MG PO SCH (21:00)
--- NOTE | 2021-11-28 21:23 | PCM.PROG ---
Progress Note - Progress Note for Day of Date of Exam: 11/28/21 - Subjective Subjective: IS CURRENTLY INPATIENT STATUS FOR TREATMENT OF E.COLI UTI. TODAY, SHE IS ALERT, SITTING UP IN BED ON MORNING ROUNDS. SHE COMPLAINS OF WEAKNESS AND SHORTNESS OF BREATH AT TIMES. SHE IS CURRENTLY UTILIZING OXYGEN VIA NASAL CANNUAL AT 2 LPM. SATURATIONS HAVE BEEN IN THE 90s. ON EXAMINATION, SHE IS TACHYCARDIC WITH HR 100-110 BPM. RHONCHI NOTED TO AUSCULTATION. ABDOMEN IS ROUND, SOFT, AND NON-TENDER WITH NORMAL BOWEL SOUNDS NOTED IN ALL QUADRANTS. NO UPPER OR LOWER EXTREMITY EDEMA NOTED. HER VITALS THIS MORNING ARE: 98.7-110-20-97%-127/80. SHE IS CURRENTLY UTILIZING OXYGEN VIA NASAL CANNULA AT 2 LPM. LABS WERE OBTAINED. WBC 9.0, HGB 9.4, HCT 28.4, SODIUM 142, POTASSIUM 4.4, CHLORIDE 105, BUN 12, CREATININE 0.90, GLUCOSE 127, CALCIUM 9.1, AST 8, ALT 16, ALK PHOS 75, TOTAL PROTEIN 7.0, ALBUMIN 2.5. SPUTUM AND BLOOD CULTURES ARE PENDING. URINE CULTURE IS POSITIVE FOR E.COLI. A CHEST XRAY WAS OBTAINED AND REVEALED: Port catheter terminates in the right atrium of the heart. The heart is normal in size. There is probable COPD. There are abnormal interstitial densities in the lungs, right greater than left. Mild linear atelectasis is seen in the lingula and left lung base, unchanged. No pneumothorax or pleural effusion is seen. SHE IS CURRENTLY RECEIVING D5NS AT 100 ML/HR, ROCEPHIN 1G IV DAILY, DUONEBS QID, PULMICORT NEBS BID, DIFLUCAN 200MG IV DAILY, AND HUMULIN R SLIDING SCALE. HER HOME MEDICATIONS OF XANAX, CLONIDINE, DILTIAZEM, COLACE, DURAGESIC PATCH, FLONASE, GABAPENTIN, MILK OF MAGNESIA, OLMESARTAN, OXYCODONE, AND PERCOCET WERE ALSO RESUMED. WE WILL CONTINUE WITH CURRENT PLAN OF CARE TODAY. OTHERWISE, WE WILL FOLLOW-UP WITH AM LABS AND CONTINUE TO MONITOR. TIME SPENT ON CLINICAL ASSESSMENT, REVIEWING LABS AND IMAGING, DECISION MAKING, AND DOCUMENTATION GREATER THAN 45 MINUTES. - Past Medical Family Social History Past Med/Fam/Surg Hx: No changes since H&P Allergies: Allergies morphine Allergy (Verified 08/06/20 13:53) rofecoxib [From Vioxx] Allergy (Verified 08/06/20 13:53) - Review of Systems ROS: No change since H&P - Vital Signs and I&O's Vital Signs: Temperature 98.9 F Pulse Rate [Right Radial] 86 Pulse Rate 97 Respiratory Rate 23 Blood Pressure [Right Arm] 104/71 Blood Pressure [Left Arm] 213/99 Blood Pressure 113/59 O2 Sat by Pulse Oximetry 98 Intake and Output: Intake & Output 11/26/21 11/27/21 11/28/21 11/29/21 11:59 11:59 11:59 11:59 Intake Total 1973 561 / 561 1108 / 1108 833 / 833 Balance 1973 561 / 561 1108 / 1108 833 / 833 - Physical Exam Oriented: Normal Eyes: Normal Ear: Normal Nose: Normal Throat: Normal Respiratory: Generalized, Diminished, Rhonchi Cardiovascular: Tachycardia : Hematuria Auscultation: Bowel Sounds: Normal Palpation: Normal Tenderness: Suprapubic Skin: Normal Musculoskeletal: Normal Psychiatric: Normal Mood Description: Calm Affect: Normal Speech Pattern: Clear, Appropriate - Laboratory and Diagnostics Result Diagrams: 11/28/21 04:50 11/28/21 04:50 Labs: 11/28/21 08:30 Sputum - Expectorated Sputum - Final 11/24/21 15:51 Blood Blood Culture - Preliminary 11/24/21 15:28 Blood Blood Culture - Preliminary 11/24/21 16:14 Urine,Catheterized Urine Culture - Final Escherichia Coli Laboratory WBC 9.0 X10^3/uL (3.6-10.0) 11/28/21 04:50 RBC 3.58 X10^6/uL (3.5-5.4) 11/28/21 04:50 Hgb 9.4 g/dL (12.0-16.0) L 11/28/21 04:50 Hct 28.4 % (36.0-47.0) L 11/28/21 04:50 MCV 79.2 fL (80.0-100.0) L 11/28/21 04:50 MCH 26.3 pg (27.0-34.0) L 11/28/21 04:50 MCHC 33.1 g/dL (33.0-35.0) 11/28/21 04:50 RDW 16.7 % (11.6-16.5) H 11/28/21 04:50 Plt Count 305 X10^3/uL (150.0-450.0) 11/28/21 04:50 Plt Count Comment Adequate (ADEQUATE) 11/24/21 15:10 MPV 7.2 fL (7.4-11.0) L 11/28/21 04:50 Neut % (Auto) 85.5 % (42.0-75.0) H 11/28/21 04:50 Lymph % (Auto) 10.9 % (21.0-51.0) L 11/28/21 04:50 [place] % (Auto) 3.4 % (0.0-13.0) 11/28/21 04:50 Eos % (Auto) 0.0 % (0.9-2.9) L 11/28/21 04:50 Baso % (Auto) 0.2 % (0.2-1.0) 11/28/21 04:50 Neut # (Auto) 7.7 x10^3/uL (2.2-4.8) H 11/28/21 04:50 Lymph # (Auto) 1.0 X10^3/uL (1.3-2.9) L 11/28/21 04:50 [place] # (Auto) 0.3 x10^3/uL (0.3-0.8) 11/28/21 04:50 Eos # (Auto) 0.0 x10^3/uL (0.0-0.2) 11/28/21 04:50 Baso # (Auto) 0.0 X10^3/uL (0.0-0.1) 11/28/21 04:50 Absolute Nucleated RBC 0.0 /100WBC 11/28/21 04:50 Total Counted 100 11/24/21 15:10 Neutrophils % (Manual) 70 % (39-76) 11/24/21 15:10 Lymphocytes % (Manual) 21 % (13-43) 11/24/21 15:10 Monocytes % (Manual) 8 % (4-9) 11/24/21 15:10 Eosinophils % (Manual) 1 % (0-6) 11/24/21 15:10 Plt Morphology Comment Normal (NORMAL) 11/24/21 15:10 RBC Morphology Normal (NORMAL) 11/24/21 15:10 Sodium 142 mmol/L (136-145) 11/28/21 04:50 Corrected Sodium 143 mmol/L (136-145) 11/28/21 04:50 Potassium 4.4 mmol/L (3.5-5.1) 11/28/21 04:50 Chloride 105 mmol/L (98-107) 11/28/21 04:50 Carbon Dioxide 28.6 mmol/L (21-32) 11/28/21 04:50 BUN 12 mg/dL (7-18) 11/28/21 04:50 Creatinine 0.90 mg/dL (0.55-1.02) 11/28/21 04:50 Est GFR (MDRD) Af Amer > 60 (>60) 11/28/21 04:50 Est GFR (MDRD) Non-Af > 60 (>60) 11/28/21 04:50 Glucose 127 mg/dL (65-99) H 11/28/21 04:50 POC Glucose (mg/dL) 161 mg/dL (65-99) H 11/28/21 20:34 Lactic Acid 1.6 mmol/L (0.4-2.0) 11/25/21 04:50 Calcium 9.1 mg/dL (8.5-10.1) 11/28/21 04:50 Corrected Calcium 10.3 mg/dL (8.5-10.1) H 11/28/21 04:50 Total Bilirubin 0.10 mg/dL (0.2-1.0) L 11/28/21 04:50 AST 8 Units/L (15-37) L 11/28/21 04:50 ALT 16 Units/L (12-78) 11/28/21 04:50 Alkaline Phosphatase 75 Units/L (46-116) 11/28/21 04:50 Creatine Kinase 46 Units/L (26-192) 11/24/21 15:10 Troponin I High Sens 8.8 ng/L (4.0-60.0) 11/24/21 15:10 B-Natriuretic Peptide < 5.0 pg/mL (0-79) 11/24/21 15:10 Total Protein 7.0 g/dL (6.4-8.2) 11/28/21 04:50 Albumin 2.5 g/dL (3.4-5.0) L 11/28/21 04:50 Globulin 4.5 g/dL (2.5-4.5) 11/28/21 04:50 Albumin/Globulin Ratio 0.6 Ratio (1.1-2.1) L 11/28/21 04:50 Specimen Type Catherized urine 11/24/21 16:14 Urine Color Yellow (YELLOW) 11/24/21 16:14 Urine Appearance Cloudy (CLEAR) 11/24/21 16:14 Urine pH 7.0 (5.0 - 8.0) 11/24/21 16:14 Ur Specific [place] 1.015 (1.000-1.030) 11/24/21 16:14 Urine Protein 2+ (NEGATIVE) 11/24/21 16:14 Urine Glucose (UA) Negative (NEGATIVE) 11/24/21 16:14 Urine Ketones Negative (NEGATIVE) 11/24/21 16:14 Urine Blood 5+ (NEGATIVE) 11/24/21 16:14 Urine Nitrite Negative (NEGATIVE) 11/24/21 16:14 Urine Bilirubin Negative (NEGATIVE) 11/24/21 16:14 Urine Urobilinogen Normal (NORMAL) 11/24/21 16:14 Ur Leukocyte Esterase 3+ (NEGATIVE) 11/24/21 16:14 Urine RBC 30-50 /HPF (0-3) A 11/24/21 16:14 Urine WBC Tntc /HPF (0-5) A 11/24/21 16:14 Ur Squamous Epith Cells Negative /HPF (NEGATIVE) 11/24/21 16:14 Urine Bacteria 4+ /HPF (NEGATIVE) 11/24/21 16:14 Ur Culture Indicated? Yes/culture set up 11/24/21 16:14 SARS CoV-2 RNA Rapid DURGA Negative (NEGATIVE) 11/24/21 16:30 - Plan (1) Sepsis Status: Acute Qualifiers: Sepsis type: sepsis due to unspecified organism Sepsis acute organ dysfunction status: without acute organ dysfunction Qualified Code(s): A41.9 - Sepsis, unspecified organism Plan: D5NS AT 100 ML/HR, ROCEPHIN 1G IV DAILY, DUONEBS QID, PULMICORT NEBS BID, DIFLUCAN 200MG IV DAILY, AND HUMULIN R SLIDING SCALE. RESUME HOME MEDS (2) Urinary tract infection Status: Acute Qualifiers: Urinary tract infection type: acute cystitis Hematuria presence: with hematuria Qualified Code(s): N30.01 - Acute cystitis with hematuria (3) COPD (chronic obstructive pulmonary disease) Status: Chronic Qualifiers: COPD type: unspecified COPD (4) CAD (coronary artery disease) Status: Chronic Qualifiers: Coronary Disease-Associated Artery/Lesion type: [place] artery [place] vs. transplanted heart: [place] heart Associated angina: unspecified whether angina present Qualified Code(s): I25.10 - Atherosclerotic heart disease of [place] coronary artery without angina pectoris (5) Hypertension Status: Chronic Qualifiers: Hypertension type: primary hypertension (6) Anxiety Status: Chronic (7) Arthritis Status: Chronic
[2021-11-28] MEDS ORDERED: ZOFRAN INJ 4 MG VIAL IVP PRN (23:26)
[2021-11-28] MEDS ORDERED: ZOFRAN INJ 4 MG VIAL ONE (23:28)
[2021-11-29] MEDS: ROXICODONE TAB 5 MG PO PRN ×2 (00:11→10:09)
[2021-11-29] MEDS: ROBITUSSIN DM PO PRN (00:11)
[2021-11-29] MEDS: D5 NS 1,000 ML IV 1,000 ML IV SCH (03:48)
[2021-11-29 05:30] LABS: BASOPHILS # (AUTO) 0.1 X10^3/uL (0.0-0.1); BASOPHILS % (AUTO) 0.6 % (0.2-1.0); EOSINOPHILS # (AUTO) 0.3 x10^3/uL (0.0-0.2); EOSINOPHILS % (AUTO) 3.8 % (0.9-2.9); HEMOGLOBIN 8.5 g/dL (12.0-16.0); LYMPHOCYTES % (AUTO) 23.5 % (21.0-51.0); MEAN CORPUSCULAR HEMOGLOBIN 26.2 pg (27.0-34.0); MEAN CORPUSCULAR HGB CONC 32.9 g/dL (33.0-35.0); MEAN CORPUSCULAR VOLUME 79.7 fL (80.0-100.0); MEAN PLATELET VOLUME 7.1 fL (7.4-11.0); MONOCYTES # (AUTO) 0.7 x10^3/uL (0.3-0.8); MONOCYTES % (AUTO) 8.1 % (0.0-13.0); NEUTROPHILS # (AUTO) 5.5 x10^3/uL (2.2-4.8); RED BLOOD COUNT 3.26 X10^6/uL (3.5-5.4); RED CELL DISTRIBUTION WIDTH 16.6 % (11.6-16.5); WHITE BLOOD COUNT 8.6 X10^3/uL (3.6-10.0)
[2021-11-29] MEDS: XANAX PO SCH ×3 (05:31→20:59)
[2021-11-29 05:42] LABS: ALANINE AMINOTRANSFERASE 17 Units/L (12-78); ALBUMIN 2.4 g/dL (3.4-5.0); ALKALINE PHOSPHATASE 67 Units/L (46-116); ASPARTATE AMINO TRANSFERASE 12 Units/L (15-37); BLOOD UREA NITROGEN 17 mg/dL (7-18); CHLORIDE 106 mmol/L (98-107); COR CA(FOR HYPOALB) 10.3 mg/dL (8.5-10.1); CREATININE 0.88 mg/dL (0.55-1.02); SODIUM 143 mmol/L (136-145); TOTAL PROTEIN 6.3 g/dL (6.4-8.2); eGFR NON BLACK RACES > 60 (>60)
[2021-11-29] MEDS: PERCOCET TAB 5/325 MG PO PRN ×2 (07:45→17:00)
[2021-11-29] MEDS: DUONEB 0.5 MG/3 MG (3 mL) NEB SCH ×4 (08:30→21:05)
[2021-11-29] MEDS: PULMICORT NEB TX 0.5 MG NEB SCH ×2 (08:30→21:05)
[2021-11-29] MEDS: DIFLUCAN 200 MG IV PREMIX* 200 MG/100 ML BAG IV SCH (10:05)
[2021-11-29] MEDS: ROCEPHIN VIAL 1 GRAM 1 G in NS 100 ML IV 100 ML IV SCH (10:05)
[2021-11-29] MEDS: COLACE CAP 100 MG PO SCH (10:08)
[2021-11-29] MEDS: BENICAR TAB 40 MG PO SCH (10:09)
[2021-11-29] MEDS: CARDIZEM CD 360 MG 24-HR PO SCH (10:09)
[2021-11-29] MEDS: MILK OF MAGNESIA PO SCH ×2 (11:25→14:28)
[2021-11-29] MEDS: FLONASE NASAL SPRAY ENOSTRIL SCH (11:25)
--- NOTE | 2021-11-29 11:54 | PCM.PROG ---
Progress Note - Progress Note for Day of Date of Exam: 11/29/21 - Subjective Subjective: IS CURRENTLY INPATIENT STATUS FOR TREATMENT OF E.COLI UTI AND BRONCHITIS. TODAY, SHE IS ALERT, SITTING UP IN BED ON MORNING ROUNDS. SHE COMPLAINS OF WEAKNESS AND SHORTNESS OF BREATH AT TIMES. SHE IS CURRENTLY UTILIZING OXYGEN VIA NASAL CANNUAL AT 2 LPM. SATURATIONS HAVE BEEN IN THE 90s. ON EXAMINATION, HEART IS REGULAR IN RATE AND RHYTHM. RHONCHI NOTED TO AUSCULTATION. ABDOMEN IS ROUND, SOFT, AND NON-TENDER WITH NORMAL BOWEL SOUNDS NOTED IN ALL QUADRANTS. NO UPPER OR LOWER EXTREMITY EDEMA NOTED. HER VITALS THIS MORNING ARE: 98.6-99-22-97%-145/83. SHE IS CURRENTLY UTILIZING OXYGEN VIA NASAL CANNULA AT 2 LPM. LABS WERE OBTAINED. WBC 8.6, RBC 3.26, HGB 8.5, HCT 26.0, SODIUM 143, POTASSIUM 4.4, BUN 17, CREATININE 0.88, GLUCOSE 83, TOTAL BILI 0.10, AST 12, ALT 17, ALK PHOS 67, TOTAL PROTEIN 6.3, ALBUMIN 2.4. SPUTUM AND BLOOD CULTURES ARE PENDING. URINE CULTURE IS POSITIVE FOR E.COLI. SHE IS CURRENTLY RECEIVING D5NS AT 100 ML/HR, ROCEPHIN 1G IV DAILY, DUONEBS QID, PULMICORT NEBS BID, DIFLUCAN 200MG IV DAILY, AND HUMULIN R SLIDING SCALE. HER HOME MEDICATIONS OF XANAX, CLONIDINE, DILTIAZEM, COLACE, DURAGESIC PATCH, FLONASE, GABAPENTIN, MILK OF MAGNESIA, OLMESARTAN, OXYCODONE, AND PERCOCET WERE ALSO RESUMED. WE WILL CONTINUE WITH CURRENT PLAN OF CARE TODAY. OTHERWISE, WE WILL FOLLOW-UP WITH AM LABS AND CONTINUE TO MONITOR. TIME SPENT ON CLINICAL ASSESSMENT, REVIEWING LABS AND IMAGING, DECISION MAKING, AND DOCUMENTATION GREATER THAN 45 MINUTES. - Past Medical Family Social History Past Med/Fam/Surg Hx: No changes since H&P Allergies: Allergies morphine Allergy (Verified 08/06/20 13:53) rofecoxib [From Vioxx] Allergy (Verified 08/06/20 13:53) - Review of Systems ROS: No change since H&P - Vital Signs and I&O's Vital Signs: Temperature 98.6 F Pulse Rate [Right Radial] 99 Pulse Rate 64 Respiratory Rate 18 Blood Pressure [Right Arm] 145/83 Blood Pressure [Left Arm] 213/99 Blood Pressure 113/59 O2 Sat by Pulse Oximetry 94 Intake and Output: Intake & Output 11/26/21 11/27/21 11/28/21 11/29/21 11:59 11:59 11:59 11:59 Intake Total 1973 561 / 561 1108 / 1108 1657 / 1657 Balance 1973 561 / 561 1108 / 1108 1657 / 1657 - Physical Exam Oriented: Normal Eyes: Normal Ear: Normal Nose: Normal Throat: Normal Respiratory: Generalized, Diminished, Rhonchi Cardiovascular: Tachycardia : Hematuria Auscultation: Bowel Sounds: Normal Tenderness: Suprapubic Skin: Normal Musculoskeletal: Normal Psychiatric: Normal Mood Description: Calm Affect: Normal Speech Pattern: Clear, Appropriate - Laboratory and Diagnostics Result Diagrams: 11/29/21 04:44 11/29/21 04:44 Labs: 11/28/21 08:30 Sputum - Expectorated Sputum Sputum Culture - Preliminary 11/28/21 08:30 Sputum - Expectorated Sputum - Final 11/24/21 15:51 Blood Blood Culture - Preliminary 11/24/21 15:28 Blood Blood Culture - Preliminary 11/24/21 16:14 Urine,Catheterized Urine Culture - Final Escherichia Coli Laboratory WBC 8.6 X10^3/uL (3.6-10.0) 11/29/21 04:44 RBC 3.26 X10^6/uL (3.5-5.4) L 11/29/21 04:44 Hgb 8.5 g/dL (12.0-16.0) L 11/29/21 04:44 Hct 26.0 % (36.0-47.0) L 11/29/21 04:44 MCV 79.7 fL (80.0-100.0) L 11/29/21 04:44 MCH 26.2 pg (27.0-34.0) L 11/29/21 04:44 MCHC 32.9 g/dL (33.0-35.0) L 11/29/21 04:44 RDW 16.6 % (11.6-16.5) H 11/29/21 04:44 Plt Count 274 X10^3/uL (150.0-450.0) 11/29/21 04:44 Plt Count Comment Adequate (ADEQUATE) 11/24/21 15:10 MPV 7.1 fL (7.4-11.0) L 11/29/21 04:44 Neut % (Auto) 64.0 % (42.0-75.0) 11/29/21 04:44 Lymph % (Auto) 23.5 % (21.0-51.0) 11/29/21 04:44 [place] % (Auto) 8.1 % (0.0-13.0) 11/29/21 04:44 Eos % (Auto) 3.8 % (0.9-2.9) H 11/29/21 04:44 Baso % (Auto) 0.6 % (0.2-1.0) 11/29/21 04:44 Neut # (Auto) 5.5 x10^3/uL (2.2-4.8) H 11/29/21 04:44 Lymph # (Auto) 2.0 X10^3/uL (1.3-2.9) 11/29/21 04:44 [place] # (Auto) 0.7 x10^3/uL (0.3-0.8) 11/29/21 04:44 Eos # (Auto) 0.3 x10^3/uL (0.0-0.2) H 11/29/21 04:44 Baso # (Auto) 0.1 X10^3/uL (0.0-0.1) 11/29/21 04:44 Absolute Nucleated RBC 0.0 /100WBC 11/29/21 04:44 Total Counted 100 11/24/21 15:10 Neutrophils % (Manual) 70 % (39-76) 11/24/21 15:10 Lymphocytes % (Manual) 21 % (13-43) 11/24/21 15:10 Monocytes % (Manual) 8 % (4-9) 11/24/21 15:10 Eosinophils % (Manual) 1 % (0-6) 11/24/21 15:10 Plt Morphology Comment Normal (NORMAL) 11/24/21 15:10 RBC Morphology Normal (NORMAL) 11/24/21 15:10 Sodium 143 mmol/L (136-145) 11/29/21 04:44 Corrected Sodium TNP 11/29/21 04:44 Potassium 4.4 mmol/L (3.5-5.1) 11/29/21 04:44 Chloride 106 mmol/L (98-107) 11/29/21 04:44 Carbon Dioxide 29.0 mmol/L (21-32) 11/29/21 04:44 BUN 17 mg/dL (7-18) 11/29/21 04:44 Creatinine 0.88 mg/dL (0.55-1.02) 11/29/21 04:44 Est GFR (MDRD) Af Amer > 60 (>60) 11/29/21 04:44 Est GFR (MDRD) Non-Af > 60 (>60) 11/29/21 04:44 Glucose 83 mg/dL (65-99) 11/29/21 04:44 POC Glucose (mg/dL) 71 mg/dL (65-99) 11/29/21 11:31 Lactic Acid 1.6 mmol/L (0.4-2.0) 11/25/21 04:50 Calcium 9.0 mg/dL (8.5-10.1) 11/29/21 04:44 Corrected Calcium 10.3 mg/dL (8.5-10.1) H 11/29/21 04:44 Total Bilirubin 0.10 mg/dL (0.2-1.0) L 11/29/21 04:44 AST 12 Units/L (15-37) L 11/29/21 04:44 ALT 17 Units/L (12-78) 11/29/21 04:44 Alkaline Phosphatase 67 Units/L (46-116) 11/29/21 04:44 Creatine Kinase 46 Units/L (26-192) 11/24/21 15:10 Troponin I High Sens 8.8 ng/L (4.0-60.0) 11/24/21 15:10 B-Natriuretic Peptide < 5.0 pg/mL (0-79) 11/24/21 15:10 Total Protein 6.3 g/dL (6.4-8.2) L 11/29/21 04:44 Albumin 2.4 g/dL (3.4-5.0) L 11/29/21 04:44 Globulin 3.9 g/dL (2.5-4.5) 11/29/21 04:44 Albumin/Globulin Ratio 0.6 Ratio (1.1-2.1) L 11/29/21 04:44 Specimen Type Catherized urine 11/24/21 16:14 Urine Color Yellow (YELLOW) 11/24/21 16:14 Urine Appearance Cloudy (CLEAR) 11/24/21 16:14 Urine pH 7.0 (5.0 - 8.0) 11/24/21 16:14 Ur Specific [place] 1.015 (1.000-1.030) 11/24/21 16:14 Urine Protein 2+ (NEGATIVE) 11/24/21 16:14 Urine Glucose (UA) Negative (NEGATIVE) 11/24/21 16:14 Urine Ketones Negative (NEGATIVE) 11/24/21 16:14 Urine Blood 5+ (NEGATIVE) 11/24/21 16:14 Urine Nitrite Negative (NEGATIVE) 11/24/21 16:14 Urine Bilirubin Negative (NEGATIVE) 11/24/21 16:14 Urine Urobilinogen Normal (NORMAL) 11/24/21 16:14 Ur Leukocyte Esterase 3+ (NEGATIVE) 11/24/21 16:14 Urine RBC 30-50 /HPF (0-3) A 11/24/21 16:14 Urine WBC Tntc /HPF (0-5) A 11/24/21 16:14 Ur Squamous Epith Cells Negative /HPF (NEGATIVE) 11/24/21 16:14 Urine Bacteria 4+ /HPF (NEGATIVE) 11/24/21 16:14 Ur Culture Indicated? Yes/culture set up 11/24/21 16:14 SARS CoV-2 RNA Rapid DURGA Negative (NEGATIVE) 11/24/21 16:30 - Plan (1) Sepsis Status: Acute Qualifiers: Sepsis type: sepsis due to unspecified organism Sepsis acute organ dysfunction status: without acute organ dysfunction Qualified Code(s): A41.9 - Sepsis, unspecified organism Plan: D5NS AT 100 ML/HR, ROCEPHIN 1G IV DAILY, DUONEBS QID, PULMICORT NEBS BID, DIFLUCAN 200MG IV DAILY, AND HUMULIN R SLIDING SCALE. RESUME HOME MEDS (2) Urinary tract infection Status: Acute Qualifiers: Urinary tract infection type: acute cystitis Hematuria presence: with hematuria Qualified Code(s): N30.01 - Acute cystitis with hematuria (3) COPD (chronic obstructive pulmonary disease) Status: Chronic Qualifiers: COPD type: unspecified COPD (4) CAD (coronary artery disease) Status: Chronic Qualifiers: Coronary Disease-Associated Artery/Lesion type: [place] artery [place] vs. transplanted heart: [place] heart Associated angina: unspecified whether angina present Qualified Code(s): I25.10 - Atherosclerotic heart disease of [place] coronary artery without angina pectoris (5) Hypertension Status: Chronic Qualifiers: Hypertension type: primary hypertension (6) Anxiety Status: Chronic (7) Arthritis Status: Chronic
[2021-11-29] MEDS ORDERED: ROBITUSSIN DM ONE (19:14)
[2021-11-29] MEDS: ROBITUSSIN DM PO SCH (20:56)
[2021-11-29] MEDS: NEURONTIN CAP 100 MG PO SCH (20:57)
[2021-11-29] MEDS: SNACK - Diabetic Appropriate PO SCH (20:57)
[2021-11-30] MEDS: D5 NS 1,000 ML IV 1,000 ML IV SCH ×3 (00:11→05:22)
[2021-11-30 05:17] LABS: BASOPHILS # (AUTO) 0.1 X10^3/uL (0.0-0.1); BASOPHILS % (AUTO) 0.8 % (0.2-1.0); EOSINOPHILS # (AUTO) 0.5 x10^3/uL (0.0-0.2); EOSINOPHILS % (AUTO) 6.4 % (0.9-2.9); HEMATOCRIT 27.1 % (36.0-47.0); LYMPHOCYTES % (AUTO) 24.5 % (21.0-51.0); MEAN CORPUSCULAR HEMOGLOBIN 26.2 pg (27.0-34.0); MEAN CORPUSCULAR HGB CONC 33.2 g/dL (33.0-35.0); MEAN PLATELET VOLUME 6.8 fL (7.4-11.0); MONOCYTES # (AUTO) 0.6 x10^3/uL (0.3-0.8); NEUTROPHILS # (AUTO) 4.9 x10^3/uL (2.2-4.8); NEUTROPHILS % (AUTO) 61.3 % (42.0-75.0); RED BLOOD COUNT 3.44 X10^6/uL (3.5-5.4); RED CELL DISTRIBUTION WIDTH 17.1 % (11.6-16.5)
[2021-11-30] MEDS: XANAX PO SCH ×3 (05:23→13:25)
[2021-11-30 05:30] LABS: ALANINE AMINOTRANSFERASE 25 Units/L (12-78); ALBUMIN 2.4 g/dL (3.4-5.0); ALKALINE PHOSPHATASE 71 Units/L (46-116); ASPARTATE AMINO TRANSFERASE 14 Units/L (15-37); BLOOD UREA NITROGEN 13 mg/dL (7-18); CALCIUM 8.9 mg/dL (8.5-10.1); CARBON DIOXIDE 28.6 mmol/L (21-32); CHLORIDE 107 mmol/L (98-107); COR CA(FOR HYPOALB) 10.2 mg/dL (8.5-10.1); CREATININE 0.78 mg/dL (0.55-1.02); SODIUM 144 mmol/L (136-145); TOTAL PROTEIN 6.3 g/dL (6.4-8.2); eGFR NON BLACK RACES > 60 (>60)
--- NOTE | 2021-11-30 06:31 | RAD ---
HISTORYShortness of breathSTUDYChest AP [id number]/15/2022FINDINGSTher e is a left-sided port present with its tip in the right atrium. Heart size is normal. Katey are normal. Lungs are mildly hyperinflated but free of acute infiltrates. Mild interstitial lung changes are present right greater than left unchanged no alveolar infiltrates or areas of consolidation are identified. No pleural effusions or pneumothoraces are identified. Bony thorax is unremarkable.IMPRESSIONLungs mildly hyperinflated with minimal interstitial lung changes but no acute alveolar infiltrates. Consistent with COPD in the appropriate clinical setting. Findings are unchanged from the prior examination.Electronically signed by: CAMILA CAMPOS (Nov 30, 2021 06:30:24)
[2021-11-30] MEDS: BENICAR TAB 40 MG PO SCH (08:19)
[2021-11-30] MEDS: CARDIZEM CD 360 MG 24-HR PO SCH (08:19)
[2021-11-30] MEDS: COLACE CAP 100 MG PO SCH (08:19)
[2021-11-30] MEDS: ROBITUSSIN DM PO SCH ×2 (08:20→13:00)
[2021-11-30] MEDS: DUONEB 0.5 MG/3 MG (3 mL) NEB SCH ×2 (08:20→13:00)
[2021-11-30] MEDS: DIFLUCAN 200 MG IV PREMIX* 200 MG/100 ML BAG IV SCH (08:20)
[2021-11-30] MEDS: FLONASE NASAL SPRAY ENOSTRIL SCH (08:20)
[2021-11-30] MEDS: PULMICORT NEB TX 0.5 MG NEB SCH (08:20)
[2021-11-30] MEDS: ROCEPHIN VIAL 1 GRAM 1 G in NS 100 ML IV 100 ML IV SCH (08:21)
[2021-11-30] MEDS: PERCOCET TAB 5/325 MG PO PRN ×2 (08:32→13:36)
[2021-11-30 13:08] VITALS: BP 111/67
[2021-11-30] MEDS: ROXICODONE TAB 5 MG PO PRN (13:37)
== END 2021-11-30 14:00 | DRG 690 ==
LOC: ER 14:27 → ICU 17:04 → MED/SURG 11-26 17:45
PROVIDERS: ADMIT Internal Medicine; ATTEND Internal Medicine
DX: R06.02 Shortness of breath; Z86.69 Personal history of other diseases of the nervous system and sense organs; E03.9 Hypothyroidism, unspecified; I25.2 Old myocardial infarction; N30.01 Acute cystitis with hematuria; F32.A Depression, unspecified; J44.1 Chronic obstructive pulmonary disease with (acute) exacerbation; I50.9 Heart failure, unspecified; R00.0 Tachycardia, unspecified; R53.1 Weakness; B96.29 Other Escherichia coli [E. coli] as the cause of diseases classified elsewhere; K21.9 Gastro-esophageal reflux disease without esophagitis; E11.9 Type 2 diabetes mellitus without complications; M51.36 Other intervertebral disc degeneration, lumbar region; Z96.641 Presence of right artificial hip joint; F41.9 Anxiety disorder, unspecified; M19.90 Unspecified osteoarthritis, unspecified site; Z20.822 Contact with and (suspected) exposure to COVID-19; Z96.611 Presence of right artificial shoulder joint; B95.62 Methicillin resistant Staphylococcus aureus infection as the cause of diseases classified elsewhere; I11.0 Hypertensive heart disease with heart failure; R26.89 Other abnormalities of gait and mobility; Z87.440 Personal history of urinary (tract) infections

== ENCOUNTER 2022-01-05 11:42 | Observation (INO) ==
[2022-01-05 11:54] VITALS: BMI 24.2
--- NOTE | 2022-01-05 12:23 | DR.DIZZY ---
HPI Time seen Time Seen by Provider: 01/05/22 12:22 PCP Primary Care Physician: Harley Complaint Chief Complaint Doctor Comments: 71 y/o female presents for evaluation. Having increasing weakness. Recently left NH 3 days ago, now cared for at home. + h aving generalized weakness, difficulty in standing. No focal weakness. Having some muscle aches, especially left arm. No report of fever, chills, cough. Has not been eating, drinking well. + h/o sacral decubitus, has tailbone pain. No diarrhea, + urinates frequently. Chief Complaint:: weak, can't walk or do anything, sacral bed sore. C/o pain in left shoulder and bilateral legs. Pt. signed out of [facility] on Sunday. COVID-19 Coronavirus risk:travel/contact w/high risk person: No Has patient experienced Coronavirus symptoms: No Nurses Notes Reviewed Nurses Notes Review: Yes Source History Provided: Patient and Family Member Mode of Arrival Mode of Arrival: Wheelchair Timing Onset of Chief Complaint: 01/02/22 Context Stroke Symptoms: None PMH PMH Past Medical History: Yes Past Medical History: Anxiety, Arthritis, CHF, COPD, Coronary Artery Disease, Depression, Diabetes, Migraines, Hypertension and Hypothyroidism Past Surgical History: Yes Surgical History: Cholecystectomy and Hysterectomy Family History History of Family Medical Conditions: Yes Family Medical History: Diabetes Mellitus and Hypertension Social History Does patient currently use any type of tobacco product: No Have you used tobacco products in the last 12 months: No Type of Tobacco Use: None Does any household member use tobacco: No Do you use any recreational Drugs:: No Lives With: Spouse Lives Where: Home Travel Risk Coronavirus risk:travel/contact w/high risk person: No Has patient experienced Coronavirus symptoms: No Infectious screening In the last 2 months have you had wt loss of >10#?: NO Have you had fever, night sweats or hemotysis?: No Have you traveled outside the country in the last 6 months?: No Isolation: Standard ROS Review of Systems Constitutional: Malaise and Weakness Eyes: No Symptoms Reported ENTM: No Symptoms Reported Respiratoy: No Symptoms Reported Cardiovascular: No Symptoms Reported Gastrointestinal/Abdominal: No Symptoms Reported Genitourinary: Frequency Neurological: Weakness and Dizziness Musculoskeletal: Muscle Pain Integumentary: No Symptoms Reported Hematologic/Lymphatic: No Symptoms Reported Psychiatric: No Symptoms Reported All Other Systems: Reviewed and Negative PE Vital Signs Vitals: Temperature 96.9 F Pulse Rate 104 Respiratory Rate 20 Blood Pressure [Right Arm] 111/67 Blood Pressure 133/80 O2 Sat by Pulse Oximetry 93 General General Appearance: Alert and In No Apparent Distress Head Head Exam: Normal Inspection, Atraumatic and Normocephalic Eyes Eye exam: PERRL and EOMI ENT ENT Exam: Normal Oropharynx and Mucous Membranes Moist Respiratory Respiratory Exam: Normal Lung Sounds Bilat; negative Accessory Muscle Use or Respiratory Distress Cardiovascular Cardiovascular Exam: Regular Rate, Normal Rhythm and Normal Heart Sounds Abdominal Exam Abdominal Exam: Normal Inspection, Normal Bowel Sounds and Soft; negative Tenderness Extremeties Extremities Exam: Normal Inspection and Full ROM; negative Edema Neurologic Neurological Exam: Alert, Oriented X3 and CN II-XII Intact; negative Motor Sensory Deficit Skin Skin Exam: Warm, Dry and Other (+ healing sacral decubitus) MDM Differential Diagnosis Differential Diagnosis: Dehydration, Electrolyte disorder and Other (UTI) COURSE Treatment Treatment: 71 y/o female with increasing weakness, no focal neuro deficits. W/u initiated. 1540 - CBC, CMP acceptable. Lactic acid slightly elevated at 2.4. U/A with TNTC WBCs, + bacteria. Pt was given IV fluids, given IV rocephin for UTI. Recommend admission for further treatment of her UTI, in view of her generalized weakness/advanced age. Discussed with Dr Souza, accepts the admission. [facility]OR Labs Reviewed Result Diagrams: 01/05/22 13:51 01/05/22 13:51 Laboratory: WBC 11.7 X10^3/uL (3.6-10.0) H 01/05/22 13:51 RBC 4.19 X10^6/uL (3.5-5.4) 01/05/22 13:51 Hgb 10.8 g/dL (12.0-16.0) L 01/05/22 13:51 Hct 33.8 % (36.0-47.0) L 01/05/22 13:51 MCV 80.8 fL (80.0-100.0) 01/05/22 13:51 MCH 25.7 pg (27.0-34.0) L 01/05/22 13:51 MCHC 31.8 g/dL (33.0-35.0) L 01/05/22 13:51 RDW 16.7 % (11.6-16.5) H 01/05/22 13:51 Plt Count 435 X10^3/uL (150.0-450.0) 01/05/22 13:51 MPV 7.3 fL (7.4-11.0) L 01/05/22 13:51 Neut % (Auto) 55.9 % (42.0-75.0) 01/05/22 13:51 Lymph % (Auto) 29.5 % (21.0-51.0) 01/05/22 13:51 Norman % (Auto) 9.2 % (0.0-13.0) 01/05/22 13:51 Eos % (Auto) 4.8 % (0.9-2.9) H 01/05/22 13:51 Baso % (Auto) 0.6 % (0.2-1.0) 01/05/22 13:51 Neut # (Auto) 6.5 x10^3/uL (2.2-4.8) H 01/05/22 13:51 Lymph # (Auto) 3.5 X10^3/uL (1.3-2.9) H 01/05/22 13:51 Norman # (Auto) 1.1 x10^3/uL (0.3-0.8) H 01/05/22 13:51 Eos # (Auto) 0.6 x10^3/uL (0.0-0.2) H 01/05/22 13:51 Baso # (Auto) 0.1 X10^3/uL (0.0-0.1) 01/05/22 13:51 Absolute Nucleated RBC 0.0 /100WBC 01/05/22 13:51 Sodium 144 mmol/L (136-145) 01/05/22 13:51 Corrected Sodium TNP 01/05/22 13:51 Potassium 3.8 mmol/L (3.5-5.1) 01/05/22 13:51 Chloride 108 mmol/L (98-107) H 01/05/22 13:51 Carbon Dioxide 28.4 mmol/L (21-32) 01/05/22 13:51 BUN 20 mg/dL (7-18) H 01/05/22 13:51 Creatinine 0.92 mg/dL (0.55-1.02) 01/05/22 13:51 Est GFR (MDRD) Af Amer > 60 (>60) 01/05/22 13:51 Est GFR (MDRD) Non-Af > 60 (>60) 01/05/22 13:51 Glucose 65 mg/dL (65-99) 01/05/22 13:51 Lactic Acid 2.4 mmol/L (0.4-2.0) H 01/05/22 13:51 Calcium 9.3 mg/dL (8.5-10.1) 01/05/22 13:51 Corrected Calcium 10.0 mg/dL (8.5-10.1) 01/05/22 13:51 Total Bilirubin 0.20 mg/dL (0.2-1.0) 01/05/22 13:51 AST 14 Units/L (15-37) L 01/05/22 13:51 ALT 17 Units/L (12-78) 01/05/22 13:51 Alkaline Phosphatase 90 Units/L (46-116) 01/05/22 13:51 Creatine Kinase 57 Units/L (26-192) 01/05/22 13:51 Troponin I High Sens 6.4 ng/L (4.0-60.0) 01/05/22 13:51 Total Protein 7.5 g/dL (6.4-8.2) 01/05/22 13:51 Albumin 3.1 g/dL (3.4-5.0) L 01/05/22 13:51 Globulin 4.4 g/dL (2.5-4.5) 01/05/22 13:51 Albumin/Globulin Ratio 0.7 Ratio (1.1-2.1) L 01/05/22 13:51 Lipase 28 Units/L (73-393) L 01/05/22 13:51 Specimen Type Cancelled 01/05/22 13:30 Specimen Type Catherized urine 01/05/22 13:30 Urine Color Cancelled 01/05/22 13:30 Urine Color Yellow (YELLOW) 01/05/22 13:30 Urine Appearance Cancelled 01/05/22 13:30 Urine Appearance Cloudy (CLEAR) 01/05/22 13:30 Urine pH 6.0 (5.0 - 8.0) 01/05/22 13:30 Urine pH Cancelled 01/05/22 13:30 Ur Specific Cooks 1.015 (1.000-1.030) 01/05/22 13:30 Ur Specific Cooks Cancelled 01/05/22 13:30 Urine Protein 3+ (NEGATIVE) 01/05/22 13:30 Urine Protein Cancelled 01/05/22 13:30 Urine Glucose (UA) Cancelled 01/05/22 13:30 Urine Glucose (UA) Negative (NEGATIVE) 01/05/22 13:30 Urine Ketones Cancelled 01/05/22 13:30 Urine Ketones Negative (NEGATIVE) 01/05/22 13:30 Urine Blood 5+ (NEGATIVE) 01/05/22 13:30 Urine Blood Cancelled 01/05/22 13:30 Urine Nitrite Cancelled 01/05/22 13:30 Urine Nitrite Positive (NEGATIVE) 01/05/22 13:30 Urine Bilirubin Cancelled 01/05/22 13:30 Urine Bilirubin Negative (NEGATIVE) 01/05/22 13:30 Urine Urobilinogen Cancelled 01/05/22 13:30 Urine Urobilinogen Normal (NORMAL) 01/05/22 13:30 Ur Leukocyte Esterase 3+ (NEGATIVE) 01/05/22 13:30 Ur Leukocyte Esterase Cancelled 01/05/22 13:30 Urine RBC 10-20 /HPF (0-3) A 01/05/22 13:30 Urine WBC Tntc /HPF (0-5) A 01/05/22 13:30 Ur Squamous Epith Cells Rare /HPF (NEGATIVE) 01/05/22 13:30 Urine Bacteria 2+ /HPF (NEGATIVE) 01/05/22 13:30 Ur Culture Indicated? Yes/culture set up 01/05/22 13:30 SARS-CoV-2 (PCR) Negative (NEGATIVE) 01/05/22 12:50 Influenza Type A (PCR) Negative (NEGATIVE) 01/05/22 12:50 Influenza Type B (PCR) Negative (NEGATIVE) 01/05/22 12:50 RSV (PCR) Negative (NEGATIVE) 01/05/22 12:50 Opioid Opioid Risk Tool Age (Can box if 16-45): No History of Preadolescent Sexual Abuse: No Total: 0 Total Score Risk Category: Low Risk Copyright: Miko CASIANO predicting aberrant behaviors Discharge Plan Diagnosis Discharge Problem: Acute cystitis, Generalized weakness Discharge Plan Patient Disposition: 09 ADMITTED INPATIENT Condition: Stable Prescriptions: No Action Novolin R Regular U-100 Insuln 100 unit/mL Solution See Rx Instructions .ROUTE .COMPLEX Rx Instructions: PER S/S docusate sodium [Colace] 100 mg Capsule 100 mg PO DAILY fentanyl 50 mcg/hr patch 72 hour 1 patch transdermal Q72H magnesium hydroxide [Milk Of Magnesia Concentrated] 2,400 mg/10 mL Suspension 30 ml PO Q OTHER DAY Bevespi Aerosphere 9-4.8 mcg HFA aerosol inhaler 2 puff inhalation BID alprazolam [Xanax] 0.25 mg Tablet 0.25 mg PO TID gabapentin 100 mg Capsule 100 mg PO QHS diclofenac sodium 1 % Gel 1 g TOPICAL BID clonidine 0.2 mg/24 hr Patch Weekly 1 ea TD Q7D Qty: 0 0RF diltiazem HCl 360 mg Capsule,Extended Release 24 Hr 360 mg PO DAILY 0RF fluticasone propionate 50 mcg/actuation [place],Suspension 2 spr ENOSTRIL DAILY 0RF olmesartan 40 mg Tablet 40 mg PO DAILY 0RF oxycodone-acetaminophen 7.5-325 mg Tablet 1 tab PO QID MDD 4 PRNQty: 120 0RF Rx Instructions: take one tablet four times a day as needed for pain fluconazole [Diflucan] 100 mg tablet 100 mg PO DAILY Qty: 10 0RF Rx Instructions: TAKE ONE TABLET DAILY FOR 10 DAYS UNTIL 11/28/21 sulfamethoxazole-trimethoprim [Bactrim DS] 800-160 mg Tablet 1 tab PO BID Qty: 28 0RF Rx Instructions: TAKE ONE TABLET TWICE A DAY X 14 DAYS ipratropium-albuterol 0.5 mg-3 mg(2.5 mg base)/3 mL Solution For Nebulization 3 ml NEB QIDRESP 0RF Health Concerns: Post Hospitalization: new medications and changes needed to prevent readmission or further decline. Pt educated and given instructions on all concerns. Plan of Treatment: Continue with present treatment and follow up plan. Pt is to keep follow up appointment as instructed and take medications as ordered. Follow ups/Referrals Follow ups/Referrals: Jose Luis Souza [Primary Care Provider] - 3 days
[2022-01-05] MEDS ORDERED: NS 500 ML IV 500 ML IV ONE ×2 (12:31→12:42)
[2022-01-05 13:52] LABS: BILIRUBIN,URINE NEGATIVE (NEGATIVE); BLOOD/HEMOGLOBIN,URINE 5+ (NEGATIVE); GLUCOSE, URINE NEGATIVE (NEGATIVE); KETONES,URINE NEGATIVE (NEGATIVE); LEUKOCYTE ESTERASE ,URINE 3+ (NEGATIVE); NITRITES,URINE POSITIVE (NEGATIVE); PROTEIN,URINE 3+ (NEGATIVE); UROBILINOGEN,URINE NORMAL (NORMAL)
--- NOTE | 2022-01-05 13:56 | RAD ---
HISTORY:WeaknessStudy: Single view chestComparison:11/30/2021Findings:Partially visualized left IJ port is in stable position. Mild nonspecific interstitial changes at the lung apices which may be due to COPD. No infiltrate, effusion, or pneumothorax identified .Cardiac and mediastinal contours are within normal limits .The soft tissues are intact.There is a partially visualized right shoulder prosthesis.IMPRESSION:1.No acute cardiopulmonary abnormality.Electronically signed by: LEONID STEPHEN (Jan 05, 2022 13:55:05)
[2022-01-05 14:05] LABS: APPEARANCE,URINE CLOUDY (CLEAR); BACTERIA,URINE 2+ /HPF (NEGATIVE); COLOR,URINE YELLOW (YELLOW); SQUAMOUS EPITHELIAL CELL,UR RARE /HPF (NEGATIVE)
[2022-01-05 14:08] LABS: BASOPHILS # (AUTO) 0.1 X10^3/uL (0.0-0.1); BASOPHILS % (AUTO) 0.6 % (0.2-1.0); EOSINOPHILS # (AUTO) 0.6 x10^3/uL (0.0-0.2); EOSINOPHILS % (AUTO) 4.8 % (0.9-2.9); HEMATOCRIT 33.8 % (36.0-47.0); HEMOGLOBIN 10.8 g/dL (12.0-16.0); LYMPHOCYTES # (AUTO) 3.5 X10^3/uL (1.3-2.9); LYMPHOCYTES % (AUTO) 29.5 % (21.0-51.0); MEAN CORPUSCULAR HEMOGLOBIN 25.7 pg (27.0-34.0); MEAN CORPUSCULAR HGB CONC 31.8 g/dL (33.0-35.0); MEAN CORPUSCULAR VOLUME 80.8 fL (80.0-100.0); MEAN PLATELET VOLUME 7.3 fL (7.4-11.0); MONOCYTES # (AUTO) 1.1 x10^3/uL (0.3-0.8); MONOCYTES % (AUTO) 9.2 % (0.0-13.0); NEUTROPHILS # (AUTO) 6.5 x10^3/uL (2.2-4.8); NEUTROPHILS % (AUTO) 55.9 % (42.0-75.0); RED BLOOD COUNT 4.19 X10^6/uL (3.5-5.4); RED CELL DISTRIBUTION WIDTH 16.7 % (11.6-16.5); WHITE BLOOD COUNT 11.7 X10^3/uL (3.6-10.0)
[2022-01-05 14:14] LABS: ALANINE AMINOTRANSFERASE 17 Units/L (12-78); ALBUMIN 3.1 g/dL (3.4-5.0); ALKALINE PHOSPHATASE 90 Units/L (46-116); ASPARTATE AMINO TRANSFERASE 14 Units/L (15-37); BLOOD UREA NITROGEN 20 mg/dL (7-18); CALCIUM 9.3 mg/dL (8.5-10.1); CARBON DIOXIDE 28.4 mmol/L (21-32); CHLORIDE 108 mmol/L (98-107); CREATINE KINASE 57 Units/L (26-192); CREATININE 0.92 mg/dL (0.55-1.02); LIPASE 28 Units/L (73-393); SODIUM 144 mmol/L (136-145); TOTAL PROTEIN 7.5 g/dL (6.4-8.2); eGFR NON BLACK RACES > 60 (>60)
[2022-01-05 14:17] LABS: LACTIC ACID 2.4 mmol/L (0.4-2.0)
[2022-01-05] MEDS ORDERED: ROCEPHIN VIAL 1 GRAM 1 G in NS 100 ML IV 100 ML IV ONE (14:20)
[2022-01-05] MEDS ORDERED: ROCEPHIN VIAL 1 GRAM ONE (14:37)
[2022-01-05] MEDS ORDERED: NS 100 ML IV 100 ML ONE (14:37)
[2022-01-05] MEDS: ROCEPHIN VIAL 1 GRAM 1 G in NS 100 ML IV 100 ML IV SCH (17:01)
[2022-01-05] MEDS: D5 NS 1,000 ML IV 1,000 ML IV SCH (17:08)
[2022-01-05] MEDS ORDERED: DUONEB 0.5 MG/3 MG (3 mL) NEB ONE (19:19)
[2022-01-05] MEDS: DUONEB 0.5 MG/3 MG (3 mL) NEB SCH (19:55)
[2022-01-06 05:35] LABS: BASOPHILS # (AUTO) 0.1 X10^3/uL (0.0-0.1); BASOPHILS % (AUTO) 1.3 % (0.2-1.0); EOSINOPHILS # (AUTO) 0.4 x10^3/uL (0.0-0.2); EOSINOPHILS % (AUTO) 3.8 % (0.9-2.9); HEMATOCRIT 27.7 % (36.0-47.0); HEMOGLOBIN 9.1 g/dL (12.0-16.0); LYMPHOCYTES # (AUTO) 3.2 X10^3/uL (1.3-2.9); LYMPHOCYTES % (AUTO) 30.6 % (21.0-51.0); MEAN CORPUSCULAR HEMOGLOBIN 25.7 pg (27.0-34.0); MEAN CORPUSCULAR HGB CONC 32.8 g/dL (33.0-35.0); MEAN CORPUSCULAR VOLUME 78.4 fL (80.0-100.0); MEAN PLATELET VOLUME 7.4 fL (7.4-11.0); MONOCYTES % (AUTO) 9.8 % (0.0-13.0); NEUTROPHILS # (AUTO) 5.6 x10^3/uL (2.2-4.8); NEUTROPHILS % (AUTO) 54.5 % (42.0-75.0); RED BLOOD COUNT 3.53 X10^6/uL (3.5-5.4); WHITE BLOOD COUNT 10.3 X10^3/uL (3.6-10.0)
[2022-01-06] MEDS: D5 NS 1,000 ML IV 1,000 ML IV SCH ×3 (05:42→23:40)
[2022-01-06 05:52] LABS: ALANINE AMINOTRANSFERASE 12 Units/L (12-78); ALBUMIN 2.4 g/dL (3.4-5.0); ALKALINE PHOSPHATASE 70 Units/L (46-116); ASPARTATE AMINO TRANSFERASE 11 Units/L (15-37); BLOOD UREA NITROGEN 10 mg/dL (7-18); CALCIUM 8.2 mg/dL (8.5-10.1); CARBON DIOXIDE 29.9 mmol/L (21-32); CHLORIDE 110 mmol/L (98-107); COR CA(FOR HYPOALB) 9.5 mg/dL (8.5-10.1); CREATININE 0.67 mg/dL (0.55-1.02); SODIUM 144 mmol/L (136-145); TOTAL PROTEIN 5.9 g/dL (6.4-8.2); eGFR NON BLACK RACES > 60 (>60)
[2022-01-06] MEDS ORDERED: POTASSIUM CHLORIDE LIQ 20 MEQ UDC PO PRN (06:11)
[2022-01-06] MEDS ORDERED: K-RIDER 10 MEQ/NS 100 ML 10 MEQ/100 ML BAG IV PRN (06:11)
[2022-01-06] MEDS ORDERED: MICRO K EXTEN CAP 10 MEQ PO PRN (06:11)
[2022-01-06] MEDS ORDERED: KLOR-CON PO PRN (06:11)
[2022-01-06] MEDS ORDERED: K-DUR TAB 20 MEQ PO PRN (06:11)
[2022-01-06] MEDS: DUONEB 0.5 MG/3 MG (3 mL) NEB SCH ×4 (08:40→21:36)
[2022-01-06] MEDS: ROCEPHIN VIAL 1 GRAM 1 G in NS 100 ML IV 100 ML IV SCH (08:40)
[2022-01-06] MEDS ORDERED: XANAX PO PRN (09:33)
[2022-01-06] MEDS ORDERED: TORADOL 15 MG VIAL IVP PRN (09:34)
[2022-01-06] MEDS: FLONASE NASAL SPRAY ENOSTRIL SCH (10:09)
[2022-01-06] MEDS: BENICAR TAB 40 MG PO SCH (10:09)
[2022-01-06] MEDS: MAGNESIUM SULFATE 1 GRAM/100 mL PREMIX 1 G/100 ML BAG IV PRN ×4 (10:13→17:21)
--- NOTE | 2022-01-06 10:13 | DR.H&P ---
H&P - History & Physical for Day of: H&P Date: 01/05/22 - Chief Complaint Chief Complaint: WEAKNESS, DIFFICULTY STANDING, GENERALIZED MUSCLE ACHES, FREQUENT URINATION, AND DECREASED APPETITE. - History of Present Illness History of Present Illness: IS A 71 YEAR OLD PATIENT OF OURS. SHE PRESENTED TO THE ER WITH COMPLAINTS OF SEVERE WEAKNESS, DIFFICULTY STANDING, GENERALIZED MUSCLE ACHES, FREQUENT URINATION, AND DECREASED APPETITE. SHE DENIES FEVER, CHILLS, COUGH, DIARRHEA. HER FAMILY REPORTS THAT SHE RECENTLY LEFT THE [facility] THREE DAYS AGO AND IS NOW BEING CARED FOR AT HOME. HER SYMPTOMS STARTED THREE DAYS PRIOR TO ARRIVAL. HER PMH INCLUDES: CAD, FL, HYPERTENSION, COPD, GERD, UTIs, DM II, ANXIETY, DEPRESSION, CHOLECYSTECTOMY, HYSTERECTOMY, RIGHT HIP REPLACEMENT, RIGHT SHOULDER REPLACEMENT. ON ARRIVAL TO THE ER, HER V ITALS WERE 96.9-104-20-93%-133/80. HER LABS WERE OBTAINED. WBC 11.7, RBC 4.19, HGB 10.8, HCT 33.8, SODIUM 144, POTASSIUM 3.8, CHLORIDE 108, BUN 20, CREATININE 0.92, GLUCOSE 65, LACTIC ACID 2.4, CALCIUM 9.3, TOTAL BILI 0.20, AST 14, ALT 17, ALK PHOS 90, CREATINE KINASE 57, TROPONIN 6.4, TOTAL PROTEIN 7.5, ALBUMIN 3.1, LIPASE 28. A URINALYSIS WAS OBTAINED AND REVEALED: WBC TNTC, RBC 10-20, LEUKOCYTES 3+, BACTERIA 2+, BLOOD 5+, NITRITE POSITIVE. A URINE CULTURE WAS SET UP. COVID-19, RSV, AND INFLUENZA NEGATIVE. A CHEST XRAY WAS OBTAINED AND REVEALED: 1.No acute cardiopulmonary abnormality. IN THER ER, SHE WAS GIVEN A NORMAL SALINE BOLUS X 1 LITER AND ROCEPHIN 1G IV X 1 DOSE. SHE WAS ADMITTED TO THE HOSPITAL FOR FURTHER EVALUATION AND TREATMENT OF ACUTE UTI AND GENERALIZED WEAKNESS. - Past Medical History Past Medical History: Coronary Artery Disease, Hypertension, Diabetes, Depression, Anxiety, Hypothyroidism, COPD, Arthritis, Migraines, CHF Additional Medical History: Congenital Heart Disease, Asthma, Fibroids, Muscle Weakness, Back Pain, Degenerative Disc Disease - Past Surgical History Surgical History: Cholecystectomy, Hysterectomy - Family History Family Medical History: Diabetes Mellitus, Hypertension - Social History Does patient currently use any type of tobacco product: No Have you used tobacco products in the last 12 months: No Type of Tobacco Use: None Does any household member use tobacco: No Alcohol Use: None Drug Use: Prescription Drugs - Medications Home Medications: morphine Allergy (Verified 08/06/20 13:53) rofecoxib [From Vioxx] Allergy (Verified 08/06/20 13:53) - Review of Systems Constitutional: Weakness Eyes: No Symptoms Reported ENT: No Symptoms Reported Respiratory: No Symptoms Reported Cardiovascular: No Symptoms Reported Gastrointestinal: Nausea Genitourinary: No Symptoms Reported Musculoskeletal: Arm Pain, Back Pain, Leg Pain Skin: No Symptoms Reported Neurological: Weakness, Confusion - Physical Exam Vital Signs: Temperature 97.8 F Pulse Rate [Left Brachial] 100 Pulse Rate 99 Respiratory Rate 18 Blood Pressure [Left Arm] 156/67 Blood Pressure [Right Arm] 111/67 Blood Pressure 133/80 O2 Sat by Pulse Oximetry 96 Oriented: Person Eyes: Normal Ear: Normal Nose: Normal Throat: Normal Respiratory: Diminished Throughout Cardiovascular: Tachycardia : Normal Auscultation: Bowel Sounds: Normal Palpation: Normal Tenderness: Normal Skin: Normal Musculoskeletal: Leg, Back:Lumbar, Tender Psychiatric: Normal Mood Description: Calm Affect: Normal Speech Pattern: Inappropriate - Allergies Allergies/Adverse Reactions: Allergies Allergy/AdvReac Type Severity Reaction Status Date / Time morphine Allergy Verified 08/06/20 13:53 rofecoxib [From Vioxx] Allergy Verified 08/06/20 13:53
[2022-01-06] MEDS: PERCOCET TAB 5/325 MG PO PRN ×2 (11:01→17:20)
[2022-01-06] MEDS ORDERED: NEURONTIN CAP 100 MG PO SCH (21:00)
[2022-01-07 06:23] LABS: BASOPHILS # (AUTO) 0.1 X10^3/uL (0.0-0.1); EOSINOPHILS # (AUTO) 0.5 x10^3/uL (0.0-0.2); EOSINOPHILS % (AUTO) 4.9 % (0.9-2.9); HEMATOCRIT 26.5 % (36.0-47.0); HEMOGLOBIN 8.7 g/dL (12.0-16.0); LYMPHOCYTES # (AUTO) 2.4 X10^3/uL (1.3-2.9); LYMPHOCYTES % (AUTO) 25.1 % (21.0-51.0); MEAN CORPUSCULAR HEMOGLOBIN 25.9 pg (27.0-34.0); MEAN CORPUSCULAR HGB CONC 32.8 g/dL (33.0-35.0); MEAN PLATELET VOLUME 7.3 fL (7.4-11.0); MONOCYTES # (AUTO) 0.8 x10^3/uL (0.3-0.8); MONOCYTES % (AUTO) 8.9 % (0.0-13.0); NEUTROPHILS # (AUTO) 5.7 x10^3/uL (2.2-4.8); NEUTROPHILS % (AUTO) 60.1 % (42.0-75.0); RED BLOOD COUNT 3.36 X10^6/uL (3.5-5.4); RED CELL DISTRIBUTION WIDTH 16.2 % (11.6-16.5); WHITE BLOOD COUNT 9.5 X10^3/uL (3.6-10.0)
[2022-01-07 06:44] LABS: ALANINE AMINOTRANSFERASE 11 Units/L (12-78); ALBUMIN 2.2 g/dL (3.4-5.0); ALKALINE PHOSPHATASE 70 Units/L (46-116); ASPARTATE AMINO TRANSFERASE 13 Units/L (15-37); BLOOD UREA NITROGEN 4 mg/dL (7-18); CALCIUM 8.1 mg/dL (8.5-10.1); CARBON DIOXIDE 26.3 mmol/L (21-32); CHLORIDE 110 mmol/L (98-107); COR CA(FOR HYPOALB) 9.5 mg/dL (8.5-10.1); CREATININE 0.67 mg/dL (0.55-1.02); MAGNESIUM 1.6 mg/dL (1.7-2.9); SODIUM 142 mmol/L (136-145); TOTAL PROTEIN 5.7 g/dL (6.4-8.2); eGFR NON BLACK RACES > 60 (>60)
[2022-01-07] MEDS: D5 NS 1,000 ML IV 1,000 ML IV SCH (08:20)
[2022-01-07] MEDS: BENICAR TAB 40 MG PO SCH (08:20)
[2022-01-07] MEDS: ROCEPHIN VIAL 1 GRAM 1 G in NS 100 ML IV 100 ML IV SCH (08:20)
[2022-01-07] MEDS: FLONASE NASAL SPRAY ENOSTRIL SCH (08:22)
[2022-01-07] MEDS: PERCOCET TAB 5/325 MG PO PRN (08:23)
[2022-01-07] MEDS: DUONEB 0.5 MG/3 MG (3 mL) NEB SCH (08:48)
[2022-01-07 09:08] VITALS: BP 168/78
[2022-01-07] MEDS: MAGNESIUM SULFATE 1 GRAM/100 mL PREMIX 1 G/100 ML BAG IV PRN (09:12)
[2022-01-07] MEDS ORDERED: ZOFRAN INJ 4 MG VIAL IVP PRN (09:53)
--- NOTE | 2022-01-07 10:27 | W.DIS.FURT ---
Summary of Discharge Discharge Summary of Date Date of Exam: 01/07/22 Admission Date Date of Admission: 01/05/22 Admission Diagnosis Patient Problems (Updated 01/06/22 @ 10:13 by Jose Luis Souza) Acute cystitis (Acute) N30.00 Generalized weakness (Acute) R53.1 Hospital Course: Pt is a 71 year old female admitted for acute cystitis. Her hospital course included antibiotics IV Rocephin. Her urine culture did grow E. coli. Pt responded well to treatments. Labs: Wbc 9.5, Hgb 8.7, Plt 372, Na 142, K 4.0, Creatinine 0.67, Glucose 81. Pt was discharged in stable condition. Rx keflex 500mg bid x 7 days. Instructed to follow up with pcp in 3-5 days. Vital Signs: Vital Signs (72 hours) 01/05/22 11:47 01/05/22 16:04 01/05/22 16:16 Temperature 96.9 F L 99.2 F Pulse Rate 104 H Pulse Rate [Left Brachial] 113 H Respiratory Rate 20 22 Blood Pressure 133/80 Blood Pressure [Left Arm] 189/84 O2 Sat by Pulse Oximetry 93 L 95 Oxygen Delivery Method Room Air Room Air Oxygen Flow Rate FIO2% 01/05/22 16:11 01/05/22 17:07 01/05/22 16:30 Temperature 100.4 F H Pulse Rate Pulse Rate [Left Brachial] 112 H Respiratory Rate 20 Blood Pressure Blood Pressure [Left Arm] 169/79 O2 Sat by Pulse Oximetry 97 Oxygen Delivery Method Nasal Cannula Room Air Nasal Cannula Oxygen Flow Rate 2 2 FIO2% 01/05/22 19:00 01/05/22 20:00 01/05/22 19:55 Temperature 98.8 F Pulse Rate Pulse Rate [Left Brachial] 108 H Respiratory Rate 18 Blood Pressure Blood Pressure [Left Arm] 136/65 O2 Sat by Pulse Oximetry 100 Oxygen Delivery Method Nasal Cannula Nasal Cannula Nasal Cannula Oxygen Flow Rate 2 2 2 FIO2% 01/05/22 19:55 01/06/22 00:00 01/06/22 04:00 Temperature 98.2 F 97.8 F Pulse Rate 106 H Pulse Rate [Left Brachial] 102 H 100 H Respiratory Rate 18 18 Blood Pressure Blood Pressure [Left Arm] 128/67 156/67 O2 Sat by Pulse Oximetry 96 99 99 Oxygen Delivery Method Nasal Cannula Nasal Cannula Oxygen Flow Rate 2 2 FIO2% 01/06/22 08:54 01/06/22 09:05 01/06/22 08:40 Temperature Pulse Rate Pulse Rate [Left Brachial] Respiratory Rate Blood Pressure Blood Pressure [Left Arm] O2 Sat by Pulse Oximetry Oxygen Delivery Method Nasal Cannula Nasal Cannula Nasal Cannula Oxygen Flow Rate 2 2 2 FIO2% 28 01/06/22 08:40 01/06/22 11:01 01/06/22 14:08 Temperature Pulse Rate 99 H Pulse Rate [Left Brachial] Respiratory Rate 22 22 Blood Pressure Blood Pressure [Left Arm] O2 Sat by Pulse Oximetry 96 Oxygen Delivery Method Oxygen Flow Rate FIO2% 01/06/22 08:00 01/06/22 12:01 01/06/22 12:00 Temperature 98.9 F 98.3 F Pulse Rate Pulse Rate [Left Brachial] 101 H 97 H Respiratory Rate 22 22 20 Blood Pressure Blood Pressure [Left Arm] 182/82 141/67 O2 Sat by Pulse Oximetry 99 98 Oxygen Delivery Method Nasal Cannula Nasal Cannula Oxygen Flow Rate 2 2 FIO2% 01/06/22 14:38 01/06/22 16:00 01/06/22 17:20 Temperature 98.5 F Pulse Rate Pulse Rate [Left Brachial] 105 H Respiratory Rate 22 20 22 Blood Pressure Blood Pressure [Left Arm] 126/63 O2 Sat by Pulse Oximetry 98 Oxygen Delivery Method Nasal Cannula Oxygen Flow Rate 2 FIO2% 01/06/22 18:20 01/06/22 19:00 01/06/22 20:00 Temperature 98.4 F Pulse Rate Pulse Rate [Left Brachial] 102 H Respiratory Rate 22 18 Blood Pressure Blood Pressure [Left Arm] 126/64 O2 Sat by Pulse Oximetry 99 Oxygen Delivery Method Nasal Cannula Nasal Cannula Oxygen Flow Rate 2 2 FIO2% 01/07/22 00:00 01/07/22 04:00 01/07/22 08:23 Temperature 98.1 F 98.3 F Pulse Rate Pulse Rate [Left Brachial] 100 H 95 H Respiratory Rate 18 18 22 Blood Pressure Blood Pressure [Left Arm] 152/78 165/85 O2 Sat by Pulse Oximetry 99 100 Oxygen Delivery Method Nasal Cannula Nasal Cannula Oxygen Flow Rate 2 2 FIO2% 01/07/22 08:30 01/07/22 08:00 01/07/22 10:19 Temperature 99.5 F Pulse Rate Pulse Rate [Left Brachial] 108 H Respiratory Rate 20 22 Blood Pressure Blood Pressure [Left Arm] 168/78 O2 Sat by Pulse Oximetry 98 Oxygen Delivery Method Nasal Cannula Nasal Cannula Oxygen Flow Rate 2 2 FIO2% 01/07/22 08:48 01/07/22 08:48 Temperature Pulse Rate 108 H Pulse Rate [Left Brachial] Respiratory Rate Blood Pressure Blood Pressure [Left Arm] O2 Sat by Pulse Oximetry 96 Oxygen Delivery Method Nasal Cannula Oxygen Flow Rate 2 FIO2% 28 Labs: Laboratory Last Values WBC 9.5 X10^3/uL (3.6-10.0) 01/07/22 05:59 RBC 3.36 X10^6/uL (3.5-5.4) L 01/07/22 05:59 Hgb 8.7 g/dL (12.0-16.0) L 01/07/22 05:59 Hct 26.5 % (36.0-47.0) L 01/07/22 05:59 MCV 79.0 fL (80.0-100.0) L 01/07/22 05:59 MCH 25.9 pg (27.0-34.0) L 01/07/22 05:59 MCHC 32.8 g/dL (33.0-35.0) L 01/07/22 05:59 RDW 16.2 % (11.6-16.5) 01/07/22 05:59 Plt Count 372 X10^3/uL (150.0-450.0) 01/07/22 05:59 MPV 7.3 fL (7.4-11.0) L 01/07/22 05:59 Neut % (Auto) 60.1 % (42.0-75.0) 01/07/22 05:59 Lymph % (Auto) 25.1 % (21.0-51.0) 01/07/22 05:59 [place] % (Auto) 8.9 % (0.0-13.0) 01/07/22 05:59 Eos % (Auto) 4.9 % (0.9-2.9) H 01/07/22 05:59 Baso % (Auto) 1.0 % (0.2-1.0) 01/07/22 05:59 Neut # (Auto) 5.7 x10^3/uL (2.2-4.8) H 01/07/22 05:59 Lymph # (Auto) 2.4 X10^3/uL (1.3-2.9) 01/07/22 05:59 [place] # (Auto) 0.8 x10^3/uL (0.3-0.8) 01/07/22 05:59 Eos # (Auto) 0.5 x10^3/uL (0.0-0.2) H 01/07/22 05:59 Baso # (Auto) 0.1 X10^3/uL (0.0-0.1) 01/07/22 05:59 Absolute Nucleated RBC 0.0 /100WBC 01/07/22 05:59 Sodium 142 mmol/L (136-145) 01/07/22 05:59 Corrected Sodium TNP 01/07/22 05:59 Potassium 4.0 mmol/L (3.5-5.1) 01/07/22 05:59 Chloride 110 mmol/L (98-107) H 01/07/22 05:59 Carbon Dioxide 26.3 mmol/L (21-32) 01/07/22 05:59 BUN 4 mg/dL (7-18) L 01/07/22 05:59 Creatinine 0.67 mg/dL (0.55-1.02) 01/07/22 05:59 Est GFR (MDRD) Af Amer > 60 (>60) 01/07/22 05:59 Est GFR (MDRD) Non-Af > 60 (>60) 01/07/22 05:59 Glucose 81 mg/dL (65-99) 01/07/22 05:59 POC Glucose (mg/dL) 75 mg/dL (65-99) 01/07/22 05:37 Lactic Acid 2.4 mmol/L (0.4-2.0) H 01/05/22 13:51 Calcium 8.1 mg/dL (8.5-10.1) L 01/07/22 05:59 Corrected Calcium 9.5 mg/dL (8.5-10.1) 01/07/22 05:59 Magnesium 1.6 mg/dL (1.7-2.9) L 01/07/22 05:59 Total Bilirubin 0.20 mg/dL (0.2-1.0) 01/07/22 05:59 AST 13 Units/L (15-37) L 01/07/22 05:59 ALT 11 Units/L (12-78) L 01/07/22 05:59 Alkaline Phosphatase 70 Units/L (46-116) 01/07/22 05:59 Creatine Kinase 57 Units/L (26-192) 01/05/22 13:51 Troponin I High Sens 6.4 ng/L (4.0-60.0) 01/05/22 13:51 Total Protein 5.7 g/dL (6.4-8.2) L 01/07/22 05:59 Albumin 2.2 g/dL (3.4-5.0) L 01/07/22 05:59 Globulin 3.5 g/dL (2.5-4.5) 01/07/22 05:59 Albumin/Globulin Ratio 0.6 Ratio (1.1-2.1) L 01/07/22 05:59 Lipase 28 Units/L (73-393) L 01/05/22 13:51 Specimen Type Cancelled 01/05/22 13:30 Specimen Type Catherized urine 01/05/22 13:30 Urine Color Cancelled 01/05/22 13:30 Urine Color Yellow (YELLOW) 01/05/22 13:30 Urine Appearance Cancelled 01/05/22 13:30 Urine Appearance Cloudy (CLEAR) 01/05/22 13:30 Urine pH 6.0 (5.0 - 8.0) 01/05/22 13:30 Urine pH Cancelled 01/05/22 13:30 Ur Specific [place] 1.015 (1.000-1.030) 01/05/22 13:30 Ur Specific [place] Cancelled 01/05/22 13:30 Urine Protein 3+ (NEGATIVE) 01/05/22 13:30 Urine Protein Cancelled 01/05/22 13:30 Urine Glucose (UA) Cancelled 01/05/22 13:30 Urine Glucose (UA) Negative (NEGATIVE) 01/05/22 13:30 Urine Ketones Cancelled 01/05/22 13:30 Urine Ketones Negative (NEGATIVE) 01/05/22 13:30 Urine Blood 5+ (NEGATIVE) 01/05/22 13:30 Urine Blood Cancelled 01/05/22 13:30 Urine Nitrite Cancelled 01/05/22 13:30 Urine Nitrite Positive (NEGATIVE) 01/05/22 13:30 Urine Bilirubin Cancelled 01/05/22 13:30 Urine Bilirubin Negative (NEGATIVE) 01/05/22 13:30 Urine Urobilinogen Cancelled 01/05/22 13:30 Urine Urobilinogen Normal (NORMAL) 01/05/22 13:30 Ur Leukocyte Esterase 3+ (NEGATIVE) 01/05/22 13:30 Ur Leukocyte Esterase Cancelled 01/05/22 13:30 Urine RBC 10-20 /HPF (0-3) A 01/05/22 13:30 Urine WBC Tntc /HPF (0-5) A 01/05/22 13:30 Ur Squamous Epith Cells Rare /HPF (NEGATIVE) 01/05/22 13:30 Urine Bacteria 2+ /HPF (NEGATIVE) 01/05/22 13:30 Ur Culture Indicated? Yes/culture set up 01/05/22 13:30 SARS-CoV-2 (PCR) Negative (NEGATIVE) 01/05/22 12:50 Influenza Type A (PCR) Negative (NEGATIVE) 01/05/22 12:50 Influenza Type B (PCR) Negative (NEGATIVE) 01/05/22 12:50 RSV (PCR) Negative (NEGATIVE) 01/05/22 12:50 Reason For Visit: ACUTE UTI, GENERALIZED WEAKNESS Discharge Date Discharge Date: 01/07/22 Discharge Diagnosis All Active Problems (Updated 01/06/22 @ 10:13 by Jose Luis Souza) Chest pain, rule out acute myocardial infarction (Acute) Epigastric pain (Acute) Fall (Acute) Head trauma (Acute) Traumatic hematoma of head (Acute) Pneumonia (Acute) Urinary tract infection (Acute) Hypertensive urgency (Acute) Lobar pneumonia (Acute) Acute UTI (Acute) Sepsis (Acute) Acute cystitis (Acute) Generalized weakness (Acute) Hypernatremia (Acute) UTI (urinary tract infection) (Acute) Acute exacerbation of chronic obstructive pulmonary disease (Acute) Falls frequently (Acute) Generalized weakness (Acute) Acute bronchitis (Acute) Pneumonia (Acute) Bigeminy (Acute) Acute upper abdominal pain (Acute) Bronchopneumonia (Acute) Sepsis (Acute) Anemia (Acute) Sepsis (Acute) E. coli UTI (Acute) Frequent falls (Acute) Weakness (Acute) COPD (chronic obstructive pulmonary disease) (Chronic) CAD (coronary artery disease) (Chronic) Hypertension (Chronic) Hypothyroidism (Chronic) Anxiety (Chronic) History of anemia (Chronic) Arthritis (Chronic) Depression (Chronic) Congenital heart disease (Chronic) Asthma (Chronic) Degenerative disc disease (Chronic) COPD (chronic obstructive pulmonary disease) (Chronic) No history of deep venous thrombosis or pulmonary embolus (Chronic) CKD (chronic kidney disease) stage 3, GFR 30-59 ml/min (Chronic) Hyperglycemia due to type 2 diabetes mellitus (Chronic) Plan of Treatment: Continue with present treatment and follow up plan. Pt is to keep follow up appointment as instructed and take medications as ordered. Discharge Medications Discharge Medications: morphine Allergy (Verified 08/06/20 13:53) rofecoxib [From Vioxx] Allergy (Verified 08/06/20 13:53) Discharge Disposition Discharge Disposition: Home Discharge Condition: Stable Discharge Plan Discharge Plan Hospital Course: Pt is a 71 year old female admitted for acute cystitis. Her hospital course included antibiotics IV Rocephin. Her urine culture did grow E. coli. Pt responded well to treatments. Labs: Wbc 9.5, Hgb 8.7, Plt 372, Na 142, K 4.0, Creatinine 0.67, Glucose 81. Pt was discharged in stable condition. Rx keflex 500mg bid x 7 days. Instructed to follow up with pcp in 3-5 days. Patient Disposition: 01 HOME, SELF-CARE Condition: Stable Health Concerns: Post Hospitalization: new medications and changes needed to prevent readmission or further decline. Pt educated and given instructions on all concerns. Plan of Treatment: Continue with present treatment and follow up plan. Pt is to keep follow up appointment as instructed and take medications as ordered. Prescriptions: New cephalexin 500 mg Capsule 500 mg PO BID 5 Days Qty: 10 0RF Continued fentanyl 50 mcg/hr patch 72 hour 1 patch transdermal Q72H alprazolam [Xanax] 0.25 mg Tablet 0.5 mg PO TID gabapentin 100 mg Capsule 100 mg PO QHS fluticasone propionate 50 mcg/actuation [place],Suspension 2 spr ENOSTRIL DAILY 0RF olmesartan 40 mg Tablet 40 mg PO DAILY 0RF oxycodone-acetaminophen 7.5-325 mg Tablet 1 tab PO QID MDD 4 PRNQty: 120 0RF Rx Instructions: take one tablet four times a day as needed for pain Orders to Discharge Patient Discharge Orders: Discharge (Routine); Ordered 01/07/22 Ordered By: Lobito Slade Follow ups/Referrals Follow ups/Referrals: Jose Luis Souza [Primary Care Provider] - 3 days Instructions Instructions: Weakness, [id number], Urinary Tract Infection, Adult, [id number], Cephalexin tablets or capsules Stand Alone Forms: Excuse From Work or School, Precautions for COVID19, [facility], Patient Portal, Social Distancing
== END 2022-01-07 11:58 | disposition home or self-care (01) ==
LOC: MED/SURG 11:42 → ER 11:42 → MED/SURG 16:23
PROVIDERS: ADMIT Internal Medicine; ATTEND Internal Medicine
DX: E11.65 Type 2 diabetes mellitus with hyperglycemia; I10 Essential (primary) hypertension; E03.8 Other specified hypothyroidism; B96.29 Other Escherichia coli [E. coli] as the cause of diseases classified elsewhere; I25.10 Atherosclerotic heart disease of native coronary artery without angina pectoris; R53.1 Weakness; Z20.822 Contact with and (suspected) exposure to COVID-19; S81.812A Laceration without foreign body, left lower leg, initial encounter; J44.9 Chronic obstructive pulmonary disease, unspecified; N30.00 Acute cystitis without hematuria; X58.XXXA Exposure to other specified factors, initial encounter; M79.18 Myalgia, other site

== ENCOUNTER 2022-04-01 13:31 | Inpatient (IN) ==
--- NOTE | 2022-04-01 17:33 | RAD ---
EXAM: CHEST X-RAYHISTORY: Shortness of breath.TECHNIQUE: PA and lateral chest x-ray.COMPARISON: CXR dated January 05, 2022.FINDINGS:There is a stable left anterior chest wall chest port in situ with the distal tip in the proximal right atrium (adequate position).The heart size and mediastinum are within normal limits. The visualized bony structures are within normal limits.There is mild diffuse prominence of the interstitial markings; DDX includes mild noncardiogenic pulmonary congestion, interstitial fibrosis, bronchitis, and mild interstitial pneumonia in the appropriate clinical setting. Clinical correlation is advised.No focal lung consolidation/mass, pleural effusion, or pneumothorax is seen.IMPRESSION:1. Mild diffuse prominence of the interstitial markings (new findings); DDX includes mild noncardiogenic pulmonary congestion, interstitial fibrosis, bronchitis, and mild interstitial pneumonia in the appropriate clinical setting. Clinical correlation is advised.2. Recommend clinical correlation and appropriate follow-up x-ray evaluation to ensure interval clearance as clinically warranted.3. Consider follow evaluation with noncontrast chest CT for further characterization as clinically warranted.Electronically signed by: David Ceja (Apr 01, 2022 17:31:11)
[2022-04-01 17:47] LABS: BASOPHILS % (AUTO) 0.2 % (0.2-1.0); EOSINOPHILS # (AUTO) 0.4 x10^3/uL (0.0-0.2); EOSINOPHILS % (AUTO) 1.3 % (0.9-2.9); HEMATOCRIT 31.8 % (36.0-47.0); LYMPHOCYTES # (AUTO) 2.1 X10^3/uL (1.3-2.9); MEAN CORPUSCULAR HEMOGLOBIN 25.5 pg (27.0-34.0); MEAN CORPUSCULAR HGB CONC 31.5 g/dL (33.0-35.0); MEAN PLATELET VOLUME 7.2 fL (7.4-11.0); MONOCYTES # (AUTO) 1.7 x10^3/uL (0.3-0.8); MONOCYTES % (AUTO) 5.6 % (0.0-13.0); NEUTROPHILS % (AUTO) 85.9 % (42.0-75.0); RED BLOOD COUNT 3.93 X10^6/uL (3.5-5.4)
[2022-04-01 17:52] LABS: WHITE BLOOD COUNT 30.2 X10^3/uL (3.6-10.0)
[2022-04-01 17:53] LABS: ALBUMIN 2.7 g/dL (3.4-5.0); CALCIUM 8.5 mg/dL (8.5-10.1); CARBON DIOXIDE 27.1 mmol/L (21-32); COR CA(FOR HYPOALB) 9.5 mg/dL (8.5-10.1); CREATININE 1.94 mg/dL (0.55-1.02); TOTAL PROTEIN 6.9 g/dL (6.4-8.2)
[2022-04-01 17:59] LABS: BAND NEUTROPHILS % 5 % (0-10)
[2022-04-01 18:00] LABS: ANISOCYTOSIS 1+; HYPOCHROMASIA SLIGHT; PLATELET MORPHOLOGY COMMENT NORMAL (NORMAL); POIKILOCYTOSIS SLIGHT
[2022-04-01 18:01] LABS: TARGET CELLS SLIGHT
--- NOTE | 2022-04-01 18:23 | DR.URIAD ---
HPI Time Seen Time Seen by Provider: 04/01/22 18:21 PCP Primary Care Physician: RICARDO HPI Comment HPI Comment: According to pt she has not bene feleing well for months .has hx of COPD,using oxygen at home .Has been expereincing cough that has become more productive slolwy and shortness of breath for sometime.Has seen her FP .Was given medication including steroids .helped some but not fully .here to have herself evaluated .[facility] Complaint Chief Complaint Doctors Comments: COUGH Chief Complaint:: PT STATES THAT SHE THINKS THAT SHE HAS PNEUMONIA AND HAS BEEN SICK WITH A COUGH SINCE LAST WEEK AND SHE FEELS LIKE SHE IS GETTING WORSE. PT STATES THAT SHE HAS SLIGHTLY PRODUCTIVE COUGH THAT IS THICK IN CONSTISTENCY AND YELLOW IN COLOR ACCOMPANIED BY CONGESTION. PT ALSO STATES THAT IT HURTS IN HER CHEST WHEN SHE COUGHS Self Treatment fo Chief Complaint: NONE COVID-19 Coronavirus risk:travel/contact w/high risk person: No Has patient experienced Coronavirus symptoms: Yes Coronavirus symptoms experienced: Coughing and Shortness of Breath Reviewed Nurses Notes Reviewed: Yes Source History Provided: Patient Mode of Arrival Mode of Arrival: Wheelchair Timing Onset of Chief Complaint: 03/25/22 Context History of Respiratory: Steroid Use Quality Quality of Cough: Productive Rhinorrhea: None Shortness of Breath: Mild Associated Signs and Symptoms Other Signs and Symptoms: Abdominal Pain PMH PMH Past Medical History: Yes Past Medical History: Anxiety, Arthritis, CHF, COPD, Coronary Artery Disease, Depression, Diabetes, Migraines, Hypertension and Hypothyroidism Past Surgical History: Yes Surgical History: Cholecystectomy and Hysterectomy Family History History of Family Medical Conditions: Yes Family Medical History: Diabetes Mellitus and Hypertension Social History Does patient currently use any type of tobacco product: No Have you used tobacco products in the last 12 months: No Type of Tobacco Use: None Does any household member use tobacco: No Do you use any recreational Drugs:: No Travel Risk Coronavirus risk:travel/contact w/high risk person: No Has patient experienced Coronavirus symptoms: Yes Coronavirus symptoms experienced: Coughing and Shortness of Breath Infectious screening In the last 2 months have you had wt loss of >10#?: NO Have you had fever, night sweats or hemotysis?: No Have you traveled outside the country in the last 6 months?: No Isolation: Respiratory ROS Review of Systems Constitutional: Fatigue Eyes: No Symptoms Reported ENTM: No Symptoms Reported Respiratoy: Productive Cough and Short of Breath Cardiovascular: No Symptoms Reported Gastrointestinal/Abdominal: Abdominal Pain Genitourinary: No Symptoms Reported (but except urine is strange colour ) Neurological: No Symptoms Reported Musculoskeletal: Joint Pain Hematologic/Lymphatic: No Symptoms Reported Endocrine: No Symptoms Reported PE Vital Signs Vitals: Temperature 98.3 F Pulse Rate [Left] 112 Pulse Rate 125 Respiratory Rate 22 Blood Pressure [Left Arm] 112/74 Blood Pressure 125/55 O2 Sat by Pulse Oximetry 97 General Limitations: No Limitations General Appearance: Alert, Anxious and In Distress Head Head Exam: Normal Inspection, Atraumatic and Normocephalic Eyes Eye exam: PERRL and EOMI ENT ENT Exam: Mucous Membranes Moist TM/Canal Exam: Bilateral: Normal Throat Exam: Other (pursed lips) Neck Neck Exam: Normal Inspection Chest Chest Inspection: Normal Inspection and Symmetric Chest Wall Rise Respiratory Respiratory Exam: Prolonged Expiratory Phase Respiratory Exam: Bilateral: Wheezing and Bilateral: Crackles Cardiovascular Cardiovascular Exam: +S1 and +S2 Abdominal Exam Abdominal Exam: Normal Bowel Sounds, Soft and Tenderness Abdominal Tenderness: Diffuse and Mild Extremeties Extremities Exam: Normal Inspection Neurologic Neurological Exam: Alert Skin Skin Exam: Normal Color MDM Additional Information Findings: cough ,shortness of bretah . unusual coloured urine COURSE Treatment Treatment: neb treatment .CXR ,covid,bnp ,cbc cmp urinalysis ROR Labs Reviewed Laboratory Results Reviewed?: Yes Result Diagrams: 04/01/22 17:30 04/01/22 17:30 Laboratory: WBC 30.2 X10^3/uL (3.6-10.0) H* 04/01/22 17:30 RBC 3.93 X10^6/uL (3.5-5.4) 04/01/22 17:30 Hgb 10.0 g/dL (12.0-16.0) L 04/01/22 17:30 Hct 31.8 % (36.0-47.0) L 04/01/22 17:30 MCV 81.0 fL (80.0-100.0) 04/01/22 17:30 MCH 25.5 pg (27.0-34.0) L 04/01/22 17:30 MCHC 31.5 g/dL (33.0-35.0) L 04/01/22 17:30 RDW 20.0 % (11.6-16.5) H 04/01/22 17:30 Plt Count 411 X10^3/uL (150.0-450.0) 04/01/22 17:30 Plt Count Comment Adequate (ADEQUATE) 04/01/22 17:30 MPV 7.2 fL (7.4-11.0) L 04/01/22 17:30 Neut % (Auto) 85.9 % (42.0-75.0) H 04/01/22 17:30 Lymph % (Auto) 7.0 % (21.0-51.0) L 04/01/22 17:30 [place] % (Auto) 5.6 % (0.0-13.0) 04/01/22 17:30 Eos % (Auto) 1.3 % (0.9-2.9) 04/01/22 17:30 Baso % (Auto) 0.2 % (0.2-1.0) 04/01/22 17:30 Neut # (Auto) 26.0 x10^3/uL (2.2-4.8) H 04/01/22 17:30 Lymph # (Auto) 2.1 X10^3/uL (1.3-2.9) 04/01/22 17:30 [place] # (Auto) 1.7 x10^3/uL (0.3-0.8) H 04/01/22 17:30 Eos # (Auto) 0.4 x10^3/uL (0.0-0.2) H 04/01/22 17:30 Baso # (Auto) 0.0 X10^3/uL (0.0-0.1) 04/01/22 17:30 Absolute Nucleated RBC 0.0 /100WBC 04/01/22 17:30 Total Counted 100 04/01/22 17:30 Neutrophils % (Manual) 74 % (39-76) 04/01/22 17:30 Band Neutrophils % 5 % (0-10) 04/01/22 17:30 Lymphocytes % (Manual) 12 % (13-43) L 04/01/22 17:30 Monocytes % (Manual) 4 % (4-9) 04/01/22 17:30 Eosinophils % (Manual) 5 % (0-6) 04/01/22 17:30 Plt Morphology Comment Normal (NORMAL) 04/01/22 17:30 RBC Morphology Abnormal (NORMAL) A 04/01/22 17:30 Hypochromasia Slight A 04/01/22 17:30 Poikilocytosis Slight A 04/01/22 17:30 Anisocytosis 1+ A 04/01/22 17:30 Target Cells Slight A 04/01/22 17:30 D-Dimer 3.02 ug/ml (0.0-0.57) H 04/02/22 02:00 Sodium 141 mmol/L (136-145) 04/01/22 17:30 Corrected Sodium 141 mmol/L (136-145) 04/01/22 17:30 Potassium 4.2 mmol/L (3.5-5.1) 04/01/22 17:30 Chloride 104 mmol/L (98-107) 04/01/22 17:30 Carbon Dioxide 27.1 mmol/L (21-32) 04/01/22 17:30 BUN 54 mg/dL (7-18) H 04/01/22 17:30 Creatinine 1.94 mg/dL (0.55-1.02) H 04/01/22 17:30 Est GFR (MDRD) Af Amer 33 (>60) L 04/01/22 17:30 Est GFR (MDRD) Non-Af 27 (>60) L 04/01/22 17:30 Glucose 120 mg/dL (65-99) H 04/01/22 17:30 Lactic Acid 0.9 mmol/L (0.4-2.0) 04/02/22 00:45 Calcium 8.5 mg/dL (8.5-10.1) 04/01/22 17:30 Corrected Calcium 9.5 mg/dL (8.5-10.1) 04/01/22 17:30 Total Bilirubin 0.40 mg/dL (0.2-1.0) 04/01/22 17:30 AST 12 Units/L (15-37) L 04/01/22 17:30 ALT 18 Units/L (12-78) 04/01/22 17:30 Alkaline Phosphatase 87 Units/L (46-116) 04/01/22 17:30 Creatine Kinase 31 Units/L (26-192) 04/02/22 02:00 Troponin I High Sens 14.3 ng/L (4.0-60.0) 04/02/22 02:00 B-Natriuretic Peptide 51.0 pg/mL (0-79) 04/01/22 17:30 Total Protein 6.9 g/dL (6.4-8.2) 04/01/22 17:30 Albumin 2.7 g/dL (3.4-5.0) L 04/01/22 17:30 Globulin 4.2 g/dL (2.5-4.5) 04/01/22 17:30 Albumin/Globulin Ratio 0.6 Ratio (1.1-2.1) L 04/01/22 17:30 Specimen Type Catherized urine 04/01/22 21:20 Urine Color Brown (YELLOW) 04/01/22 21:20 Urine Appearance Turbid (CLEAR) 04/01/22 21:20 Urine pH 8.0 (5.0 - 8.0) 04/01/22 21:20 Ur Specific [place] 1.015 (1.000-1.030) 04/01/22 21:20 Urine Protein 3+ (NEGATIVE) 04/01/22 21:20 Urine Glucose (UA) Negative (NEGATIVE) 04/01/22 21:20 Urine Ketones 1+ (NEGATIVE) 04/01/22 21:20 Urine Blood 5+ (NEGATIVE) 04/01/22 21:20 Urine Nitrite Positive (NEGATIVE) 04/01/22 21:20 Urine Bilirubin 1+ (NEGATIVE) 04/01/22 21:20 Urine Urobilinogen 3+ (NORMAL) 04/01/22 21:20 Ur Leukocyte Esterase 3+ (NEGATIVE) 04/01/22 21:20 Urine RBC 3-5 /HPF (0-3) A 04/01/22 21:20 Urine WBC 10-20 /HPF (0-5) A 04/01/22 21:20 Ur Squamous Epith Cells Rare /HPF (NEGATIVE) 04/01/22 21:20 Calcium Oxalate Crystal Few /HPF (NEGATIVE) 04/01/22 21:20 Triple Phos Crystals Few /HPF (NEGATIVE) 04/01/22 21:20 Amorphous Sediment 3+ /HPF (NEGATIVE) 04/01/22 21:20 Urine Bacteria 4+ /HPF (NEGATIVE) 12/17/22 21:20 Granular Casts Few /LPF (NEGATIVE) 04/01/22 21:20 Other Casts Few /LPF (NEGATIVE) 04/01/22 21:20 Ur Culture Indicated? Yes/culture set up 04/01/22 21:20 SARS-CoV-2 (PCR) Negative (NEGATIVE) 04/01/22 18:17 Influenza Type A (PCR) Negative (NEGATIVE) 04/01/22 18:17 Influenza Type B (PCR) Negative (NEGATIVE) 04/01/22 18:17 RSV (PCR) Negative (NEGATIVE) 04/01/22 18:17 Opioid Opioid Risk Tool Age (Can box if 16-45): No History of Preadolescent Sexual Abuse: No Total: 0 Total Score Risk Category: Low Risk Copyright: Miko CASIANO predicting aberrant behaviors Discharge Plan Diagnosis Discharge Problem: COPD (chronic obstructive pulmonary disease), Interstitial pneumonia, Chronic renal failure, stage 4 (severe), D-dimer, elevated, Abdominal pain, Chronic, continuous use of opioids, Leucocytosis Discharge Plan Patient Disposition: ADMITTED INPATIENT Condition: Stable ADDITIONAL NOTES Additional Notes Additional Notes: P t was discussed Dr Souza agreed to accept the patient whom he knows well. Furthermore patient was doing fine ,began to have increased heart rate,clammy and start groaning pointing to her upper abdomen was hurting .she was noted to have sluggish bowels .CT of the abdomen without contrast was ordered stat. CT abdomen without contrast showed no acute pathology .While patinet was having abdominal pain she also had a large bowel movement .However due to patient groaning and complaining about the pain.She was given daludid 1 mg .Helped to keep the pain under control .Currently patient is comfortable
[2022-04-01] MEDS ORDERED: DUONEB 0.5 MG/3 MG (3 mL) NEB ONE ×3 (19:42→19:59)
[2022-04-01] MEDS ORDERED: LASIX IVP ONE ×2 (21:18→21:20)
[2022-04-01 21:49] LABS: BILIRUBIN,URINE 1+ (NEGATIVE); BLOOD/HEMOGLOBIN,URINE 5+ (NEGATIVE); GLUCOSE, URINE NEGATIVE (NEGATIVE); KETONES,URINE 1+ (NEGATIVE); LEUKOCYTE ESTERASE ,URINE 3+ (NEGATIVE); NITRITES,URINE POSITIVE (NEGATIVE); PROTEIN,URINE 3+ (NEGATIVE); UROBILINOGEN,URINE 3+ (NORMAL)
[2022-04-01 22:12] LABS: APPEARANCE,URINE TURBID (CLEAR); BACTERIA,URINE 4+ /HPF (NEGATIVE); COLOR,URINE BROWN (YELLOW); SQUAMOUS EPITHELIAL CELL,UR RARE /HPF (NEGATIVE)
[2022-04-01 22:13] LABS: CALCIUM OXALATE CRYSTALS,UR FEW /HPF (NEGATIVE); GRANULAR CASTS,URINE FEW /LPF (NEGATIVE); TRIPLE PHOSPHATE CRYSTAL,UR FEW /HPF (NEGATIVE)
[2022-04-01 22:14] LABS: OTHER CASTS, URINE FEW /LPF (NEGATIVE)
[2022-04-02] MEDS ORDERED: ZOSYN VIAL 3.375 GRAMS IV ONE (00:22)
[2022-04-02] MEDS ORDERED: NS 100 ML IV 100 ML ONE (00:23)
[2022-04-02] MEDS ORDERED: ZOSYN VIAL 3.375 GRAMS 3.375 G in NS 100 ML IV 100 ML IV ONE (00:34)
[2022-04-02] MEDS ORDERED: DILAUDID INJ IVP ONE (01:29)
[2022-04-02] MEDS ORDERED: ZOFRAN INJ 4 MG VIAL IVP ONE (01:29)
[2022-04-02] MEDS ORDERED: DILAUDID INJ ONE (01:29)
[2022-04-02] MEDS ORDERED: ZOFRAN INJ 4 MG VIAL ONE (01:29)
--- NOTE | 2022-04-02 01:39 | CT ---
HISTORYCONCERNS FOR BOWEL PERFORATIONSTUDYABDOMEN/PELVIS W/O [id number]/29/2022 theTECHNIQUEMultiple axial images of the abdomen and pelvis were obtained from the lung bases to the pubic symphysis without the administration of IV contrast. Dose reduction techniques including Automated Exposure Control (AEC) and adjustment of mA and kV were utilized.FINDINGSThe visualized portions of the lung bases are unremarkable . The a spleen, pancreas, kidneys, and adrenal glands are unremarkable in their CT appearance. Post cholecystectomy changes. The liver is normal in size and demonstrates several small hepatic cysts.. No significant mesenteric lymphadenopathy or stranding can be observed. No free fluid or free air is seen within the abdomen. No bowel wall thickening or bowel dilatation is present. The colon is unremarkable. Specifically, there is no diverticulosis noted within the sigmoid colon. The urinary bladder is grossly unremarkable. The bony structures are grossly intact. There is streak artifact through the lower pelvis from patient's right hip prosthesis. 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
[2022-04-02 03:24] LABS: ALBUMIN 2.4 g/dL (3.4-5.0); CALCIUM 8.5 mg/dL (8.5-10.1); CARBON DIOXIDE 28.8 mmol/L (21-32); COR CA(FOR HYPOALB) 9.8 mg/dL (8.5-10.1); CREATININE 1.47 mg/dL (0.55-1.02); TOTAL PROTEIN 6.7 g/dL (6.4-8.2)
[2022-04-02 03:25] LABS: BASOPHILS % (AUTO) 0.2 % (0.2-1.0); EOSINOPHILS # (AUTO) 0.3 x10^3/uL (0.0-0.2); EOSINOPHILS % (AUTO) 1.3 % (0.9-2.9); HEMATOCRIT 31.6 % (36.0-47.0); HEMOGLOBIN 10.1 g/dL (12.0-16.0); LYMPHOCYTES # (AUTO) 2.5 X10^3/uL (1.3-2.9); LYMPHOCYTES % (AUTO) 9.4 % (21.0-51.0); MEAN CORPUSCULAR HEMOGLOBIN 25.6 pg (27.0-34.0); MEAN CORPUSCULAR HGB CONC 31.8 g/dL (33.0-35.0); MEAN CORPUSCULAR VOLUME 80.3 fL (80.0-100.0); MEAN PLATELET VOLUME 7.7 fL (7.4-11.0); MONOCYTES # (AUTO) 1.4 x10^3/uL (0.3-0.8); MONOCYTES % (AUTO) 5.4 % (0.0-13.0); NEUTROPHILS # (AUTO) 22.3 x10^3/uL (2.2-4.8); NEUTROPHILS % (AUTO) 83.7 % (42.0-75.0); RED BLOOD COUNT 3.93 X10^6/uL (3.5-5.4); RED CELL DISTRIBUTION WIDTH 20.3 % (11.6-16.5); WHITE BLOOD COUNT 26.6 X10^3/uL (3.6-10.0)
[2022-04-02 03:37] LABS: BAND NEUTROPHILS % 1 % (0-10)
[2022-04-02 03:38] LABS: ANISOCYTOSIS 1+; HYPOCHROMASIA SLIGHT; PLATELET MORPHOLOGY COMMENT NORMAL (NORMAL); TARGET CELLS PRESENT
[2022-04-02 04:16] VITALS: BMI 25.4
[2022-04-02] MEDS ORDERED: PERCOCET TAB 5/325 MG PO PRN (06:35)
[2022-04-02] MEDS: DUONEB 0.5 MG/3 MG (3 mL) NEB SCH ×4 (08:54→21:00)
[2022-04-02] MEDS: PULMICORT NEB TX 0.5 MG NEB SCH ×2 (08:54→21:00)
[2022-04-02] MEDS ORDERED: XANAX PO PRN (09:26)
[2022-04-02] MEDS ORDERED: CATAPRES-TTS-2 TD SCH (10:00)
[2022-04-02] MEDS ORDERED: TOPROL XL PO ONE (11:46)
[2022-04-02] MEDS: BENICAR TAB 40 MG PO SCH (11:53)
[2022-04-02] MEDS: FLEXERIL TAB 10 MG PO SCH ×2 (11:54→21:34)
[2022-04-02] MEDS: MEGACE PO SCH ×2 (11:54→21:34)
[2022-04-02] MEDS: MAGIC MOUTHWASH (Orig. Formula) PO SCH (11:54)
[2022-04-02] MEDS: TOPROL XL PO SCH (11:54)
[2022-04-02] MEDS: NEURONTIN CAP 100 MG PO SCH (11:54)
[2022-04-02] MEDS: NS 1,000 ML IV 1,000 ML IV SCH (11:55)
[2022-04-02] MEDS: FORTAZ or TAZICEF VIAL INJ 2 G in NS 100 ML IV 100 ML IV SCH ×2 (11:55→21:34)
[2022-04-02] MEDS ORDERED: LEVAQUIN PREMIX IV 750 MG 750 MG/150 ML BAG IV SCH (13:00)
[2022-04-02] MEDS ORDERED: NovoLIN R (or HumuLIN R) SUBCUT PRN (19:42)
[2022-04-02] MEDS: LIPITOR TAB 10 MG PO SCH (21:34)
[2022-04-02] MEDS: AMBIEN PO SCH (21:34)
[2022-04-02] MEDS: SNACK - Diabetic Appropriate PO SCH (21:37)
[2022-04-02] MEDS: PERCOCET TAB 5/325 MG PO PRN (22:10)
[2022-04-03 05:23] LABS: BASOPHILS # (AUTO) 0.1 X10^3/uL (0.0-0.1); BASOPHILS % (AUTO) 0.6 % (0.2-1.0); EOSINOPHILS # (AUTO) 0.3 x10^3/uL (0.0-0.2); EOSINOPHILS % (AUTO) 2.3 % (0.9-2.9); HEMATOCRIT 23.3 % (36.0-47.0); LYMPHOCYTES # (AUTO) 2.1 X10^3/uL (1.3-2.9); LYMPHOCYTES % (AUTO) 14.4 % (21.0-51.0); MEAN CORPUSCULAR HEMOGLOBIN 26.8 pg (27.0-34.0); MEAN CORPUSCULAR HGB CONC 33.6 g/dL (33.0-35.0); MEAN CORPUSCULAR VOLUME 79.9 fL (80.0-100.0); MEAN PLATELET VOLUME 7.6 fL (7.4-11.0); MONOCYTES # (AUTO) 1.1 x10^3/uL (0.3-0.8); MONOCYTES % (AUTO) 7.7 % (0.0-13.0); NEUTROPHILS # (AUTO) 10.9 x10^3/uL (2.2-4.8); RED BLOOD COUNT 2.92 X10^6/uL (3.5-5.4); RED CELL DISTRIBUTION WIDTH 19.3 % (11.6-16.5)
[2022-04-03 05:32] LABS: LACTIC ACID 0.5 mmol/L (0.4-2.0)
[2022-04-03 05:34] LABS: HEMOGLOBIN 7.8 g/dL (12.0-16.0); WHITE BLOOD COUNT 14.5 X10^3/uL (3.6-10.0)
[2022-04-03 05:40] LABS: ALANINE AMINOTRANSFERASE 13 Units/L (12-78); ALBUMIN 1.8 g/dL (3.4-5.0); ALKALINE PHOSPHATASE 106 Units/L (46-116); ASPARTATE AMINO TRANSFERASE 9 Units/L (15-37); BLOOD UREA NITROGEN 25 mg/dL (7-18); CALCIUM 8.1 mg/dL (8.5-10.1); CHLORIDE 107 mmol/L (98-107); COR CA(FOR HYPOALB) 9.9 mg/dL (8.5-10.1); SODIUM 142 mmol/L (136-145); TOTAL PROTEIN 5.6 g/dL (6.4-8.2); eGFR NON BLACK RACES > 60 (>60)
[2022-04-03] MEDS: NS 1,000 ML IV 1,000 ML IV SCH ×2 (05:41)
--- NOTE | 2022-04-03 07:37 | RAD ---
HISTORYShortness of breathSTUDYChest AP [id number] e is a left-sided port with its tip in the expected position of superior vena cava. Heart size is normal. Katey are normal. Diffuse predominantly interstitial lung changes are present not significantly different from prior examination. No acute alveolar infiltrates or pleural effusions are identified. Mild hyperinflation is present. Bony thorax is unremarkable.IMPRESSIONNo acute infiltratesContinued mild hyperinflationDiffuse bilateral interstitial lung changes likely chronicElectronically signed by: CAMILA CAMPOS (Apr 03, 2022 07:36:04)
[2022-04-03] MEDS: DUONEB 0.5 MG/3 MG (3 mL) NEB SCH ×4 (08:02→21:23)
[2022-04-03] MEDS: PULMICORT NEB TX 0.5 MG NEB SCH ×2 (08:02→21:23)
--- NOTE | 2022-04-03 08:55 | EKG ---
Test Reason : cp Blood Pressure : */* mmHG Vent. Rate : 114 BPM Atrial Rate : 114 BPM P-R Int : 120 ms QRS Dur : 80 ms QT Int : 310 ms P-R-T Axes : 76 21 85 degrees QTc Int : 427 ms Sinus tachycardia Nonspecific T wave abnormality Abnormal ECG No previous ECGs available Confirmed by Ambrosio Stroud ([id number]) on 04/04/2022 1:07:44 PM Referred By: Confirmed By: Ambrosio Stroud
[2022-04-03] MEDS ORDERED: TOPROL XL PO ONE (09:33)
[2022-04-03] MEDS: MEGACE PO SCH ×2 (09:46→21:39)
[2022-04-03] MEDS: FLEXERIL TAB 10 MG PO SCH ×2 (09:46→21:39)
[2022-04-03] MEDS: NEURONTIN CAP 100 MG PO SCH (09:46)
[2022-04-03] MEDS: BENICAR TAB 40 MG PO SCH (09:46)
[2022-04-03] MEDS: FORTAZ or TAZICEF VIAL INJ 2 G in NS 100 ML IV 100 ML IV SCH ×2 (09:47→21:56)
[2022-04-03] MEDS: CARDIZEM CD 360 MG 24-HR PO SCH (09:47)
[2022-04-03] MEDS: TOPROL XL PO SCH (09:50)
[2022-04-03] MEDS: MAGIC MOUTHWASH (Orig. Formula) PO SCH (09:50)
[2022-04-03] MEDS: LEVAQUIN PREMIX IV 750 MG 750 MG/150 ML BAG IV SCH (10:58)
[2022-04-03] MEDS ORDERED: TYLENOL 325 MG TAB PO PRN (15:28)
--- NOTE | 2022-04-03 19:02 | DR.H&P ---
H&P - History & Physical for Day of: H&P Date: 04/02/22 - Chief Complaint Chief Complaint: COUGH, SOB, WEAKNESS, ABDOMINAL PAIN - History of Present Illness History of Present Illness: IS A 71 YEAR OLD PATIENT OF OURS. SHE PRESENTED TO THE ER WITH COMPLAINTS OF SEVERE WEAKNESS, SHORTNESS OF BREATH, PRODUCTIVE COUGH, CHEST CONGESTION, AND DIFFUSE ABDOMINAL PAIN. PATIENT REPORTS THAT SPUTUM IS THICK IN CONSISTENCY AND YELLOW IN COLOR. SHE ALSO REPORTS CHEST CONGESTION AND DISCOMFORT. SHE REPORTS RECENTLY BEING TREATED WITH LEVAQUIN AND PREDNISONE. SHE DENIES IMPROVEMENT IN SYMPTOMS DESPITE COMPLIANCE WITH MEDICATIONS. HER PMH INCLUDES: CAD, [place], HYPERTENSION, COPD, GERD, UTIs, DM II, ANXIETY, DEPRESSION, CHOLECYSTECTOMY, HYSTERECTOMY, RIGHT HIP REPLACEMENT, RIGHT SHOULDER REPLACEMENT. ON ARRIVAL TO THE ER, HER VITALS WERE 98 .3-75-24-94%-104/60. HER LABS WERE OBTAINED. WBC 30.2, RBC 3.93, HGB 10.0, HCT 31.8, PLT COUNT 411, D-DIMER 3.02, SODIUM 141, POTASSIUM 4.2, CHLORIDE 104, BUN 54, CREATININE 1.94, GLUCOSE 120, CALCIUM 8.5, TOTAL BILI 0.40, AST 12, ALT 18, ALK PHOS 87, TOTAL PROTEIN 6.9, ALBUMIN 2.7. COVID, INFLUENZA, AND RSV NEGATIVE. A URINALYSIS WAS OBTAINED AND REVEALED: WBC 10-20, RBC 3-5, LEUKOCYTES 3+, BACTE LISETTE 4+, NITRITES POSITIVE. BLOOD AND SPUTUM CULTURES WERE ALSO SET UP. A CHEST XRAY WAS OBTAINED AND REVEALED: 1. Mild diffuse prominence of the interstitial markings (new findings); DDX includes mild noncardiogenic pulmonary congestion, interstitial fibrosis, bronchitis, and mild interstitial pneumonia in the appropriate clinical setting. AN ABDOMEN/PELVIS CT WITHOUT CONTRAST WAS OBTAINED AND REVEALED: Unremarkable CT of the abdomen and pelvis. IN THE ER, SHE WAS LASIX 40MG IV X 1 DOSE, DUONEB X 1, DILAUDID 1MG IV 1, ZOFRAN 4MG IV X 1, ZOSYN 3.375G IV X 1. SHE WAS ADMITTED TO THE HOSPITAL FOR FURTHER EVALUATION AND TREATMENT OF ACUTE UTI, COPD EXACERBATION WITH ACUTE BRONCHITIS, SHORTNESS OF BREATH, LEUKOCYTOSIS. SHE WAS STARTED ON NORMAL SALINE AT 50 ML/HR, FORTAZ 2G IV Q12H, LEVAQUIN 750MG IV DAILY, DUONBS QID, PULMICORT NEBS BID, HUMULIN R SLIDING SCALE, OTBS ACHS, AND HER HOME MEDICATIONS WERE RESUMED. OTHERWISE, WE WILL FOLLOW-UP WITH AM LABS AND CONTINUE TO MONITOR. TIME SPENT ON CLINICAL ASSESSMENT, REVIEWING LABS AND IMAGING, DECISION MAKING, AND DOCUMENTATION GREATER THAN 75 MINUTES. - Past Medical History Past Medical History: Coronary Artery Disease, Hypertension, Diabetes, Depression, Anxiety, Hypothyroidism, COPD, Arthritis, Migraines, CHF Additional Medical History: Congenital Heart Disease, Asthma, Fibroids, Muscle Weakness, Back Pain, Degenerative Disc Disease - Past Surgical History Surgical History: Cholecystectomy, Hysterectomy - Family History Family Medical History: Diabetes Mellitus, Coronary Artery Disease, Hypertension - Social History Does patient currently use any type of tobacco product: No Have you used tobacco products in the last 12 months: No Type of Tobacco Use: None Does any household member use tobacco: No Alcohol Use: None Drug Use: Prescription Drugs - Medications Home Medications: morphine Allergy (Verified 08/06/20 13:53) rofecoxib [From Vioxx] Allergy (Verified 08/06/20 13:53) CONTINUE taking the following medications albuterol sulfate 90 mcg/actuation aerosol inhaler (Ventolin HFA) 2 inh inhalation Q4H PRN 04/01/22 [History] alprazolam 0.5 mg tablet 1 tab PO TID PRN 04/01/22 [History] atorvastatin 10 mg tablet 1 tab PO QDAY 04/01/22 [History] clonidine 0.2 mg/24 hr weekly transdermal patch 1 patch transdermal QWEEK 04/01/22 [History] cyclobenzaprine 10 mg tablet 1 tab PO BID 04/01/22 [History] diltiazem HCl 360 mg capsule,extended release 24 hr 1 cap PO QDAY 04/01/22 [History] furosemide 20 mg tablet 1 tab PO BID 04/01/22 [History] gabapentin 100 mg capsule 1 cap PO QDAY 04/01/22 [History] hydrochlorothiazide 12.5 mg capsule 1 cap PO QDAY 04/01/22 [History] lidocaine HCl 2 % mucosal solution (Lidocaine Viscous) 1 applic PO DAILY 04/01/22 [History] megestrol 40 mg tablet 1 tab PO BID 04/01/22 [History] metoprolol succinate 200 mg tablet,extended release 24 hr 1 tab PO QDAY 04/01/22 [History] olmesartan 40 mg tablet 1 tab PO QDAY 04/01/22 [History] oxycodone-acetaminophen 7.5 mg-325 mg tablet 1 tab PO QID PRN 04/01/22 [History] tramadol 50 mg tablet 1 tab PO Q6H PRN 04/01/22 [History] zolpidem 10 mg tablet 1 tab PO QPM 04/01/22 [History] - Review of Systems Constitutional: Fever, Weakness Eyes: No Symptoms Reported ENT: No Symptoms Reported Respiratory: Cough, Shortness of Breath, SOB with Excertion, Sputum Cardiovascular: No Symptoms Reported Gastrointestinal: See HPI, Nausea, Abdominal Pain Genitourinary: No Symptoms Reported Musculoskeletal: No Symptoms Reported Skin: No Symptoms Reported Neurological: Weakness - Physical Exam Vital Signs: Temperature 98.5 F Pulse Rate [Left] 86 Pulse Rate 78 Respiratory Rate 18 Blood Pressure [Left Arm] 99/55 Blood Pressure 103/60 O2 Sat by Pulse Oximetry 98 Oriented: Normal Eyes: Normal Ear: Normal Nose: Normal Throat: Normal Respiratory: Diminished Throughout Cardiovascular: Normal : Normal Auscultation: Bowel Sounds: Normal Palpation: Normal Tenderness: Normal Skin: Normal Musculoskeletal: Normal Psychiatric: Normal Mood Description: Calm Affect: Normal Speech Pattern: Clear - Assessment/Plan (1) Acute UTI Status: Acute Plan: ADMIT, SUPPLEMENTAL OXYGEN, NORMAL SALINE AT 50 ML/HR, FORTAZ 2G IV Q12H, LEVAQUIN 750MG IV DAILY, DUONBS QID, PULMICORT NEBS BID, HUMULIN R SLIDING SCALE, OTBS ACHS, AND HER HOME MEDICATIONS WERE RESUMED. (2) COPD with acute bronchitis Status: Acute (3) Leucocytosis Qualifiers: Leukocytosis type: unspecified Qualified Code(s): D72.829 - Elevated white blood cell count, unspecified Status: Acute (4) Shortness of breath Status: Acute (5) Generalized weakness Status: Acute (6) CAD (coronary artery disease) Qualifiers: Coronary Disease-Associated Artery/Lesion type: [place] artery [place] vs. transplanted heart: [place] heart Associated angina: unspecified whether angina present Qualified Code(s): I25.10 - Atherosclerotic heart disease of [place] coronary artery without angina pectoris Status: Chronic (7) Hypertension Qualifiers: Hypertension type: primary hypertension Status: Chronic (8) Hypothyroidism Qualifiers: Hypothyroidism type: acquired Qualified Code(s): E03.9 - Hypothyroidism, unspecified Status: Chronic (9) Anxiety Status: Chronic (10) Degenerative disc disease Qualifiers: Mid-cervical spinal level: unspecified Status: Chronic - Allergies Allergies/Adverse Reactions: Allergies Allergy/AdvReac Type Severity Reaction Status Date / Time morphine Allergy Verified 08/06/20 13:53 rofecoxib [From Vioxx] Allergy Verified 08/06/20 13:53
[2022-04-03] MEDS: AMBIEN PO SCH (21:39)
[2022-04-03] MEDS: LIPITOR TAB 10 MG PO SCH (21:39)
[2022-04-03] MEDS: PERCOCET TAB 5/325 MG PO PRN (21:50)
[2022-04-03] MEDS: SNACK - Diabetic Appropriate PO SCH (21:53)
--- NOTE | 2022-04-03 23:04 | PCM.PROG ---
Progress Note - Progress Note for Day of Date of Exam: 04/03/22 - Subjective Subjective: IS CURRENTLY INPATIENT STATUS FOR TREATMENT OF ACUTE UTI, COPD WITH ACUTE BRONCHITIS, LEUKOCYTOSIS, SHORTNESS OF BREATH, AND GENERALIZED WEAKNESS. TODAY, SHE IS LYING IN BED WITH EYES CLOSED ON MORNING ROUNDS. SHE AWAKENS TO VERBAL STIMULI. SHE CONTINUES WITH COMPLAINTS OF COUGH, SHORNESS OF BREATH, AND LOWER ABDOMINAL PAIN. ON EXAMINATION, HEART IS REGULAR IN RATE AND RHYTHM. BILATERAL LUNGS ARE NOTED WITH DIMINISHED LUNG SOUNDS THROUGHOUT. ABDOMEN IS ROUND, SOFT, AND NOTED WITH NORMAL BOWEL SOUNDS NOTED IN ALL QUADRANTS. NO UPPER OR LOWER EXTREMITY EDEMA NOTED. HER VITALS THIS MORNING ARE: 98.5-79-20-98%-135/64. LABS WERE OBTAINED. WBC 14.5, RBC 2.92, HGB 7.8, HCT 23.3, PLT COUNT 347, SODIUM 142, POTASSIUM 4.6, CHLORIDE 107, BUN 25, CREATININE 0.90, GLUCOSE 83, CALCIUM 8.1, TOTAL BILI 0.40, AST 9, ALT 13, ALK PHOS 106, TOTAL PROTEIN 5.6, ALBUMIN 1.8. A CHEST XRAY WAS OBTAINED AND REVEALED: No acute infiltrates. Continued mild hyperinflation. Diffuse bilateral interstitial lung changes likely chronic. SHE IS CURRENTLY RECEIVING NORMAL SALINE AT 50 ML/HR, FORTAZ 2G IV Q12H, LEVAQUIN 750MG IV DAILY, DUONBS QID, PULMICORT NEBS BID, HUMULIN R SLIDING SCALE, OTBS ACHS, AND HER HOME MEDICATIONS WERE RESUMED. WE WILL CONTINUE WITH CURRENT PLAN OF CARE TODAY. OTHERWISE, WE WILL FOLLOW-UP WITH AM LABS AND CONTINUE TO MONITOR. TIME SPENT ON CLINICAL ASSESSMENT, REVIEWING LABS AND IMAGING, DECISION MAKING, AND DOCUMENTATION GREATER THAN 45 MINUTES. - Past Medical Family Social History Past Med/Fam/Surg Hx: No changes since H&P Allergies: Allergies morphine Allergy (Verified 08/06/20 13:53) rofecoxib [From Vioxx] Allergy (Verified 08/06/20 13:53) - Review of Systems ROS: No change since H&P - Vital Signs and I&O's Vital Signs: Temperature 98.5 F Pulse Rate [Left] 79 Pulse Rate 78 Respiratory Rate 20 Blood Pressure [Left Arm] 135/64 Blood Pressure 103/60 O2 Sat by Pulse Oximetry 95 Intake and Output: Intake & Output 04/01/22 04/02/22 04/03/22 04/04/22 11:59 11:59 11:59 11:59 Intake Total 0 / 0 2207 / 2207 540 / 540 Output Total 1220 / 1220 1425 / 1425 600 / 600 Balance -1220 / -1220 782 / 782 -60 / -60 - Physical Exam Oriented: Normal Eyes: Normal Ear: Normal Nose: Normal Throat: Normal Respiratory: Generalized, Diminished Cardiovascular: Normal : Normal Auscultation: Bowel Sounds: Normal Palpation: Normal Tenderness: Normal Skin: Normal Musculoskeletal: Normal Psychiatric: Normal Mood Description: Calm Affect: Normal Speech Pattern: Clear - Laboratory and Diagnostics Result Diagrams: 04/03/22 04:34 04/03/22 04:34 Labs: 04/02/22 09:30 Sputum - Expectorated Sputum Sputum Culture - Preliminary 04/02/22 09:30 Sputum - Expectorated Sputum - Final 04/01/22 21:20 Urine,Catheterized Urine Culture - Preliminary Escherichia Coli Laboratory WBC 14.5 X10^3/uL (3.6-10.0) H D 04/03/22 04:34 RBC 2.92 X10^6/uL (3.5-5.4) L 04/03/22 04:34 Hgb 7.8 g/dL (12.0-16.0) L D 04/03/22 04:34 Hct 23.3 % (36.0-47.0) L 04/03/22 04:34 MCV 79.9 fL (80.0-100.0) L 04/03/22 04:34 MCH 26.8 pg (27.0-34.0) L 04/03/22 04:34 MCHC 33.6 g/dL (33.0-35.0) 04/03/22 04:34 RDW 19.3 % (11.6-16.5) H 04/03/22 04:34 Plt Count 347 X10^3/uL (150.0-450.0) 04/03/22 04:34 Plt Count Comment Adequate (ADEQUATE) 04/02/22 02:00 MPV 7.6 fL (7.4-11.0) 04/03/22 04:34 Neut % (Auto) 75.0 % (42.0-75.0) 04/03/22 04:34 Lymph % (Auto) 14.4 % (21.0-51.0) L 04/03/22 04:34 [place] % (Auto) 7.7 % (0.0-13.0) 04/03/22 04:34 Eos % (Auto) 2.3 % (0.9-2.9) 04/03/22 04:34 Baso % (Auto) 0.6 % (0.2-1.0) 04/03/22 04:34 Neut # (Auto) 10.9 x10^3/uL (2.2-4.8) H 04/03/22 04:34 Lymph # (Auto) 2.1 X10^3/uL (1.3-2.9) 04/03/22 04:34 [place] # (Auto) 1.1 x10^3/uL (0.3-0.8) H 04/03/22 04:34 Eos # (Auto) 0.3 x10^3/uL (0.0-0.2) H 04/03/22 04:34 Baso # (Auto) 0.1 X10^3/uL (0.0-0.1) 04/03/22 04:34 Absolute Nucleated RBC 0.0 /100WBC 04/03/22 04:34 Total Counted 100 04/02/22 02:00 Neutrophils % (Manual) 80 % (39-76) H 04/02/22 02:00 Band Neutrophils % 1 % (0-10) 04/02/22 02:00 Lymphocytes % (Manual) 13 % (13-43) 04/02/22 02:00 Monocytes % (Manual) 3 % (4-9) L 04/02/22 02:00 Eosinophils % (Manual) 3 % (0-6) 04/02/22 02:00 Plt Morphology Comment Normal (NORMAL) 04/02/22 02:00 RBC Morphology Abnormal (NORMAL) A 04/02/22 02:00 Hypochromasia Slight A 04/02/22 02:00 Poikilocytosis Slight A 04/01/22 17:30 Anisocytosis 1+ A 04/02/22 02:00 Target Cells Present 04/02/22 02:00 D-Dimer 3.02 ug/ml (0.0-0.57) H 04/02/22 02:00 Sodium 142 mmol/L (136-145) 04/03/22 04:34 Corrected Sodium TNP 04/03/22 04:34 Potassium 4.6 mmol/L (3.5-5.1) 04/03/22 04:34 Chloride 107 mmol/L (98-107) 04/03/22 04:34 Carbon Dioxide 27.0 mmol/L (21-32) 04/03/22 04:34 BUN 25 mg/dL (7-18) H 04/03/22 04:34 Creatinine 0.90 mg/dL (0.55-1.02) 04/03/22 04:34 Est GFR (MDRD) Af Amer > 60 (>60) 04/03/22 04:34 Est GFR (MDRD) Non-Af > 60 (>60) 04/03/22 04:34 Glucose 83 mg/dL (65-99) 04/03/22 04:34 POC Glucose (mg/dL) 94 mg/dL (65-99) 04/03/22 20:23 Lactic Acid 0.5 mmol/L (0.4-2.0) 04/03/22 04:34 Calcium 8.1 mg/dL (8.5-10.1) L 04/03/22 04:34 Corrected Calcium 9.9 mg/dL (8.5-10.1) 04/03/22 04:34 Total Bilirubin 0.40 mg/dL (0.2-1.0) 04/03/22 04:34 AST 9 Units/L (15-37) L 04/03/22 04:34 ALT 13 Units/L (12-78) 04/03/22 04:34 Alkaline Phosphatase 106 Units/L (46-116) 04/03/22 04:34 Creatine Kinase 31 Units/L (26-192) 04/02/22 02:00 Troponin I High Sens 11.3 ng/L (4.0-60.0) 04/02/22 19:44 B-Natriuretic Peptide 16.2 pg/mL (0-79) 04/03/22 04:34 Total Protein 5.6 g/dL (6.4-8.2) L 04/03/22 04:34 Albumin 1.8 g/dL (3.4-5.0) L 04/03/22 04:34 Globulin 3.8 g/dL (2.5-4.5) 04/03/22 04:34 Albumin/Globulin Ratio 0.5 Ratio (1.1-2.1) L 04/03/22 04:34 Specimen Type Catherized urine 04/01/22 21:20 Urine Color Brown (YELLOW) 04/01/22 21:20 Urine Appearance Turbid (CLEAR) 04/01/22 21:20 Urine pH 8.0 (5.0 - 8.0) 04/01/22 21:20 Ur Specific [place] 1.015 (1.000-1.030) 04/01/22 21:20 Urine Protein 3+ (NEGATIVE) 04/01/22 21:20 Urine Glucose (UA) Negative (NEGATIVE) 04/01/22 21:20 Urine Ketones 1+ (NEGATIVE) 04/01/22 21:20 Urine Blood 5+ (NEGATIVE) 04/01/22 21:20 Urine Nitrite Positive (NEGATIVE) 04/01/22 21:20 Urine Bilirubin 1+ (NEGATIVE) 04/01/22 21:20 Urine Urobilinogen 3+ (NORMAL) 04/01/22 21:20 Ur Leukocyte Esterase 3+ (NEGATIVE) 04/01/22 21:20 Urine RBC 3-5 /HPF (0-3) A 04/01/22 21:20 Urine WBC 10-20 /HPF (0-5) A 04/01/22 21:20 Ur Squamous Epith Cells Rare /HPF (NEGATIVE) 04/01/22 21:20 Calcium Oxalate Crystal Few /HPF (NEGATIVE) 04/01/22 21:20 Triple Phos Crystals Few /HPF (NEGATIVE) 04/01/22 21:20 Amorphous Sediment 3+ /HPF (NEGATIVE) 04/01/22 21:20 Urine Bacteria 4+ /HPF (NEGATIVE) 04/01/22 21:20 Granular Casts Few /LPF (NEGATIVE) 04/01/22 21:20 Other Casts Few /LPF (NEGATIVE) 04/01/22 21:20 Ur Culture Indicated? Yes/culture set up 04/01/22 21:20 SARS-CoV-2 (PCR) Negative (NEGATIVE) 04/01/22 18:17 Influenza Type A (PCR) Negative (NEGATIVE) 12/17/22 18:17 Influenza Type B (PCR) Negative (NEGATIVE) 04/01/22 18:17 RSV (PCR) Negative (NEGATIVE) 04/01/22 18:17 - Plan (1) Acute UTI Status: Acute Plan: SUPPLEMENTAL OXYGEN, NORMAL SALINE AT 50 ML/HR, FORTAZ 2G IV Q12H, LEVAQUI N 750MG IV DAILY, DUONBS QID, PULMICORT NEBS BID, HUMULIN R SLIDING SCALE, OTBS ACHS, AND HER HOME MEDICATIONS WERE RESUMED. (2) COPD with acute bronchitis Status: Acute (3) Leucocytosis Status: Acute Qualifiers: Leukocytosis type: unspecified Qualified Code(s): D72.829 - Elevated white blood cell count, unspecified (4) Shortness of breath Status: Acute (5) Generalized weakness Status: Acute (6) CAD (coronary artery disease) Status: Chronic Qualifiers: Coronary Disease-Associated Artery/Lesion type: [place] artery [place] vs. transplanted heart: [place] heart Associated angina: unspecified whether angina present Qualified Code(s): I25.10 - Atherosclerotic heart disease of [place] coronary artery without angina pectoris (7) Hypertension Status: Chronic Qualifiers: Hypertension type: primary hypertension (8) Hypothyroidism Status: Chronic Qualifiers: Hypothyroidism type: acquired Qualified Code(s): E03.9 - Hypothyroidism, unspecified (9) Anxiety Status: Chronic (10) Degenerative disc disease Status: Chronic Qualifiers: Mid-cervical spinal level: unspecified
[2022-04-04] MEDS: ALBUMIN HUMAN 25%- 100 ML 100 ML IV SCH ×2 (00:35→21:54)
[2022-04-04] MEDS: NS 1,000 ML IV 1,000 ML IV SCH ×2 (04:19→18:15)
[2022-04-04 05:05] LABS: BASOPHILS # (AUTO) 0.1 X10^3/uL (0.0-0.1); BASOPHILS % (AUTO) 1.4 % (0.2-1.0); EOSINOPHILS # (AUTO) 0.4 x10^3/uL (0.0-0.2); EOSINOPHILS % (AUTO) 4.3 % (0.9-2.9); HEMATOCRIT 21.7 % (36.0-47.0); HEMOGLOBIN 7.3 g/dL (12.0-16.0); LYMPHOCYTES # (AUTO) 2.2 X10^3/uL (1.3-2.9); LYMPHOCYTES % (AUTO) 25.6 % (21.0-51.0); MEAN CORPUSCULAR HEMOGLOBIN 26.7 pg (27.0-34.0); MEAN CORPUSCULAR HGB CONC 33.6 g/dL (33.0-35.0); MEAN CORPUSCULAR VOLUME 79.5 fL (80.0-100.0); MEAN PLATELET VOLUME 7.3 fL (7.4-11.0); MONOCYTES # (AUTO) 0.9 x10^3/uL (0.3-0.8); NEUTROPHILS % (AUTO) 58.7 % (42.0-75.0); RED BLOOD COUNT 2.73 X10^6/uL (3.5-5.4); RED CELL DISTRIBUTION WIDTH 19.1 % (11.6-16.5); WHITE BLOOD COUNT 8.5 X10^3/uL (3.6-10.0)
[2022-04-04 05:10] LABS: ALANINE AMINOTRANSFERASE 14 Units/L (12-78); ALBUMIN 2.3 g/dL (3.4-5.0); ALKALINE PHOSPHATASE 54 Units/L (46-116); ASPARTATE AMINO TRANSFERASE 10 Units/L (15-37); BLOOD UREA NITROGEN 15 mg/dL (7-18); CARBON DIOXIDE 26.1 mmol/L (21-32); CHLORIDE 108 mmol/L (98-107); COR CA(FOR HYPOALB) 9.4 mg/dL (8.5-10.1); CREATININE 0.82 mg/dL (0.55-1.02); SODIUM 142 mmol/L (136-145); TOTAL PROTEIN 5.8 g/dL (6.4-8.2); eGFR NON BLACK RACES > 60 (>60)
[2022-04-04 05:40] LABS: ANISOCYTOSIS SLIGHT; HYPOCHROMASIA SLIGHT; PLATELET MORPHOLOGY COMMENT NORMAL (NORMAL); TARGET CELLS PRESENT
[2022-04-04] MEDS: PERCOCET TAB 5/325 MG PO PRN ×2 (05:43→20:29)
--- NOTE | 2022-04-04 08:08 | RAD ---
HISTORYShortness of breathSTUDYChest AP [id number]/19/2022FINDINGSTher e is a port present on the left. Heart size is normal. Katey are normal. Diffuse interstitial lung changes are present and not significantly different from the prior examination. There are new patchy alveolar infiltrates throughout the left lung suspicious for bronchopneumonia. No pleural effusions are identified. Bony thorax is unremarkable.IMPRESSIONNo change diffuse interstitial lung changesNew patchy alveolar filling throughout the left lung predominantly in the left upper lobe suggestive of bronchopneumonia.Electronically signed by: CAMILA CAMPOS (Apr 04, 2022 08:06:22)
[2022-04-04] MEDS ORDERED: TOPROL XL PO ONE (08:37)
[2022-04-04] MEDS: DUONEB 0.5 MG/3 MG (3 mL) NEB SCH ×4 (08:52→20:00)
[2022-04-04] MEDS: PULMICORT NEB TX 0.5 MG NEB SCH ×2 (08:52→20:00)
[2022-04-04] MEDS: FORTAZ or TAZICEF VIAL INJ 2 G in NS 100 ML IV 100 ML IV SCH ×2 (08:58→20:33)
[2022-04-04] MEDS: BENICAR TAB 40 MG PO SCH (08:59)
[2022-04-04] MEDS: MEGACE PO SCH ×2 (08:59→20:27)
[2022-04-04] MEDS: CARDIZEM CD 360 MG 24-HR PO SCH (08:59)
[2022-04-04] MEDS: TOPROL XL PO SCH (08:59)
[2022-04-04] MEDS: FLEXERIL TAB 10 MG PO SCH ×2 (08:59→20:27)
[2022-04-04] MEDS: NEURONTIN CAP 100 MG PO SCH (08:59)
[2022-04-04] MEDS: MAGIC MOUTHWASH (Orig. Formula) PO SCH (09:00)
[2022-04-04] MEDS: LEVAQUIN PREMIX IV 750 MG 750 MG/150 ML BAG IV SCH (09:58)
[2022-04-04] MEDS: ULTRAM PO PRN (17:23)
[2022-04-04] MEDS: AMBIEN PO SCH (20:27)
[2022-04-04] MEDS: LIPITOR TAB 10 MG PO SCH (20:28)
[2022-04-04] MEDS: SNACK - Diabetic Appropriate PO SCH (20:34)
[2022-04-05] MEDS: NS 1,000 ML IV 1,000 ML IV SCH ×3 (02:05→22:26)
[2022-04-05 05:23] LABS: BASOPHILS % (AUTO) 0.3 % (0.2-1.0); EOSINOPHILS # (AUTO) 0.3 x10^3/uL (0.0-0.2); EOSINOPHILS % (AUTO) 3.6 % (0.9-2.9); HEMOGLOBIN 7.3 g/dL (12.0-16.0); LYMPHOCYTES # (AUTO) 2.2 X10^3/uL (1.3-2.9); LYMPHOCYTES % (AUTO) 30.2 % (21.0-51.0); MEAN CORPUSCULAR HEMOGLOBIN 26.5 pg (27.0-34.0); MEAN CORPUSCULAR HGB CONC 33.3 g/dL (33.0-35.0); MEAN CORPUSCULAR VOLUME 79.5 fL (80.0-100.0); MEAN PLATELET VOLUME 7.4 fL (7.4-11.0); MONOCYTES # (AUTO) 0.8 x10^3/uL (0.3-0.8); MONOCYTES % (AUTO) 11.5 % (0.0-13.0); NEUTROPHILS # (AUTO) 3.9 x10^3/uL (2.2-4.8); NEUTROPHILS % (AUTO) 54.4 % (42.0-75.0); RED BLOOD COUNT 2.76 X10^6/uL (3.5-5.4); RED CELL DISTRIBUTION WIDTH 19.6 % (11.6-16.5); WHITE BLOOD COUNT 7.2 X10^3/uL (3.6-10.0)
[2022-04-05 05:31] LABS: ALANINE AMINOTRANSFERASE 17 Units/L (12-78); ALBUMIN 2.8 g/dL (3.4-5.0); ALKALINE PHOSPHATASE 52 Units/L (46-116); ASPARTATE AMINO TRANSFERASE 14 Units/L (15-37); BLOOD UREA NITROGEN 12 mg/dL (7-18); CALCIUM 8.2 mg/dL (8.5-10.1); CARBON DIOXIDE 26.3 mmol/L (21-32); CHLORIDE 106 mmol/L (98-107); COR CA(FOR HYPOALB) 9.2 mg/dL (8.5-10.1); CREATININE 0.73 mg/dL (0.55-1.02); SODIUM 139 mmol/L (136-145); TOTAL PROTEIN 6.4 g/dL (6.4-8.2); eGFR NON BLACK RACES > 60 (>60)
[2022-04-05] MEDS: PERCOCET TAB 5/325 MG PO PRN ×2 (05:31→12:46)
[2022-04-05] MEDS ORDERED: MILK OF MAGNESIA PO PRN (05:34)
[2022-04-05] MEDS ORDERED: COLACE CAP 100 MG PO PRN (05:34)
[2022-04-05] MEDS: PULMICORT NEB TX 0.5 MG NEB SCH ×2 (08:20→20:08)
[2022-04-05] MEDS: DUONEB 0.5 MG/3 MG (3 mL) NEB SCH ×4 (08:20→20:08)
[2022-04-05] MEDS ORDERED: TOPROL XL PO ONE (08:46)
[2022-04-05] MEDS: NEURONTIN CAP 100 MG PO SCH (08:54)
[2022-04-05] MEDS: FLEXERIL TAB 10 MG PO SCH ×2 (08:54→20:48)
[2022-04-05] MEDS: TOPROL XL PO SCH (08:54)
[2022-04-05] MEDS: BENICAR TAB 40 MG PO SCH (08:54)
[2022-04-05] MEDS: CARDIZEM CD 360 MG 24-HR PO SCH (08:54)
[2022-04-05] MEDS: FORTAZ or TAZICEF VIAL INJ 2 G in NS 100 ML IV 100 ML IV SCH ×2 (08:55→21:54)
[2022-04-05] MEDS: MAGIC MOUTHWASH (Orig. Formula) PO SCH (08:55)
[2022-04-05] MEDS: MEGACE PO SCH ×2 (08:55→20:48)
--- NOTE | 2022-04-05 09:06 | RAD ---
HISTORYCOPD EXAC SOB Relevant Clinical InformationSTUDYCHEST, 1 [id number]/2022FINDINGSTrachea is midline, normal heart size. There is a left-sided Port-A-Cath with the tip in the SVC unchanged since prior study. There is no evidence of pleural effusion or pneumothorax. There is again mild diffuse areas of increase of the interstitial markings with emphysema in the upper lobes, there is also unchanged is increase of the interstitial markings in the left base. No dominant alveolar radiopacities. Right shoulder prosthesis.IMPRESSIONEmphysema with interstitial lung disease overall stable since prior studies. Chronic peribronchial thickeningElectronically signed by: Linda Saleh (Apr 05, 2022 09:04:09)
--- NOTE | 2022-04-05 10:32 | PCM.PROG ---
Progress Note - Progress Note for Day of Date of Exam: 04/04/22 - Subjective Subjective: IS CURRENTLY INPATIENT STATUS FOR TREATMENT OF ACUTE UTI, COPD WITH ACUTE BRONCHITIS, LEUKOCYTOSIS, SHORTNESS OF BREATH, AND GENERALIZED WEAKNESS. TODAY, SHE IS LYING IN BED WITH EYES CLOSED ON MORNING ROUNDS. SHE AWAKENS TO VERBAL STIMULI. SHE CONTINUES WITH COMPLAINTS OF COUGH, SHORNESS OF BREATH, AND LOWER ABDOMINAL PAIN. ON EXAMINATION, HEART IS REGULAR IN RATE AND RHYTHM. BILATERAL LUNGS ARE NOTED WITH DIMINISHED LUNG SOUNDS THROUGHOUT. ABDOMEN IS ROUND, SOFT, AND NOTED WITH NORMAL BOWEL SOUNDS NOTED IN ALL QUADRANTS. WAGNER CATHETER NOTED TO BEDSIDE DRAINAGE. NO UPPER OR LOWER EXTREMITY EDEMA NOTED. HER VITALS THIS MORNING ARE: 98.9-86-20-96%-118/56. LABS WERE OBTAINED. WBC 8.5, RBC 2.73, HGB 7.3, HCT 21.7, PLT COUNT 305, SODIUM 142, POTASSIUM 4.4, CHLORIDE 108, BUN 15, CREATININE 0.82, GLUCOSE 81, CALCIUM 8.0, AST 10, ALT 14, ALK PHOS 54, TOTAL PROTEIN 5.8, ALBUMIN 2.3. SPUTUM CULTURE IS POSITIVE FOR GROWTH OF PROTEUS MIRABILIS. URINE CULTURE IS POSITIVE FOR GROWTH OF E.COLI AND PROTEUS MIRABILIS. A CHEST XRAY WAS OBTAINED AND REVEALED: No change diffuse interstitial lung changes. New patchy alveolar filling throughout the left lung predominantly in the left upper lobe suggestive of bronchopneumonia. SHE IS CURRENTLY RECEIVING NORMAL SALINE AT 50 ML/HR, FORTAZ 2G IV Q12H, LEVAQUIN 750MG IV DAILY, DUONBS QID, PULMICORT NEBS BID, HUMULIN R SLIDING SCALE, OTBS ACHS, AND HER HOME MEDICATIONS WERE RESUMED. WE WILL DISCONTINUE THE LEVAQUIN TODAY. OTHERWISE, WE WILL CONTINUE WITH CURRENT PLAN OF CARE. WE WILL FOLLOW-UP WITH AM LABS AND CONTINUE TO MONITOR. TIME SPENT ON CLINICAL ASSESSMENT, REVIEWING LABS AND IMAGING, DECISION MAKING, AND DOCUMENTATION GREATER THAN 45 MINUTES. - Past Medical Family Social History Past Med/Fam/Surg Hx: No changes since H&P Allergies: Allergies morphine Allergy (Verified 08/06/20 13:53) rofecoxib [From Vioxx] Allergy (Verified 08/06/20 13:53) - Review of Systems ROS: No change since H&P - Vital Signs and I&O's Vital Signs: Temperature 98.2 F Pulse Rate [Left] 89 Pulse Rate 102 Respiratory Rate 19 Blood Pressure [Right Arm] 143/67 Blood Pressure [Left Arm] 126/61 Blood Pressure 103/60 O2 Sat by Pulse Oximetry 98 Intake and Output: Intake & Output 04/02/22 04/03/22 04/04/22 04/05/22 11:59 11:59 11:59 11:59 Intake Total 0 / 0 2207 / 2207 2110 / 2110 2162 / 2162 Output Total 1220 / 1220 1425 / 1425 1700 / 1700 1100 / 1100 Balance -1220 / -1220 782 / 782 410 / 410 1062 / 1062 - Physical Exam Oriented: Normal Eyes: Normal Ear: Normal Nose: Normal Throat: Normal Respiratory: Generalized, Diminished Cardiovascular: Normal : Normal, Other (WAGNER CATHETER ) Auscultation: Bowel Sounds: Normal Palpation: Normal Tenderness: Normal Skin: Normal Musculoskeletal: Normal Psychiatric: Normal Mood Description: Calm Affect: Normal Speech Pattern: Clear, Appropriate - Laboratory and Diagnostics Result Diagrams: 04/05/22 04:33 04/05/22 04:33 Labs: 04/02/22 00:45 Blood Blood Culture - Preliminary 04/02/22 00:40 Blood Blood Culture - Preliminary 04/01/22 21:20 Urine,Catheterized Urine Culture - Final Escherichia Coli Proteus Mirabilis 04/02/22 09:30 Sputum - Expectorated Sputum Sputum Culture - Final Proteus Mirabilis 04/02/22 09:30 Sputum - Expectorated Sputum - Final Laboratory WBC 7.2 X10^3/uL (3.6-10.0) 04/05/22 04:33 RBC 2.76 X10^6/uL (3.5-5.4) L 04/05/22 04:33 Hgb 7.3 g/dL (12.0-16.0) L 04/05/22 04:33 Hct 22.0 % (36.0-47.0) L 04/05/22 04:33 MCV 79.5 fL (80.0-100.0) L 04/05/22 04:33 MCH 26.5 pg (27.0-34.0) L 04/05/22 04:33 MCHC 33.3 g/dL (33.0-35.0) 04/05/22 04:33 RDW 19.6 % (11.6-16.5) H 04/05/22 04:33 Plt Count 331 X10^3/uL (150.0-450.0) 04/05/22 04:33 Plt Count Comment Adequate (ADEQUATE) 04/04/22 04:29 MPV 7.4 fL (7.4-11.0) 04/05/22 04:33 Neut % (Auto) 54.4 % (42.0-75.0) 04/05/22 04:33 Lymph % (Auto) 30.2 % (21.0-51.0) 04/05/22 04:33 Quay % (Auto) 11.5 % (0.0-13.0) 04/05/22 04:33 Eos % (Auto) 3.6 % (0.9-2.9) H 04/05/22 04:33 Baso % (Auto) 0.3 % (0.2-1.0) 04/05/22 04:33 Neut # (Auto) 3.9 x10^3/uL (2.2-4.8) 04/05/22 04:33 Lymph # (Auto) 2.2 X10^3/uL (1.3-2.9) 04/05/22 04:33 Quay # (Auto) 0.8 x10^3/uL (0.3-0.8) 04/05/22 04:33 Eos # (Auto) 0.3 x10^3/uL (0.0-0.2) H 04/05/22 04:33 Baso # (Auto) 0.0 X10^3/uL (0.0-0.1) 04/05/22 04:33 Absolute Nucleated RBC 0.0 /100WBC 04/05/22 04:33 Total Counted 100 04/02/22 02:00 Neutrophils % (Manual) 80 % (39-76) H 04/02/22 02:00 Band Neutrophils % 1 % (0-10) 04/02/22 02:00 Lymphocytes % (Manual) 13 % (13-43) 04/02/22 02:00 Monocytes % (Manual) 3 % (4-9) L 04/02/22 02:00 Eosinophils % (Manual) 3 % (0-6) 04/02/22 02:00 Plt Morphology Comment Normal (NORMAL) 04/04/22 04:29 RBC Morphology Abnormal (NORMAL) A 04/04/22 04:29 Hypochromasia Slight A 04/04/22 04:29 Poikilocytosis Slight A 04/01/22 17:30 Anisocytosis Slight A 04/04/22 04:29 Target Cells Present 04/04/22 04:29 D-Dimer 3.02 ug/ml (0.0-0.57) H 04/02/22 02:00 Sodium 139 mmol/L (136-145) 04/05/22 04:33 Corrected Sodium TNP 04/05/22 04:33 Potassium 4.3 mmol/L (3.5-5.1) 04/05/22 04:33 Chloride 106 mmol/L (98-107) 04/05/22 04:33 Carbon Dioxide 26.3 mmol/L (21-32) 04/05/22 04:33 BUN 12 mg/dL (7-18) 04/05/22 04:33 Creatinine 0.73 mg/dL (0.55-1.02) 04/05/22 04:33 Est GFR (MDRD) Af Amer > 60 (>60) 04/05/22 04:33 Est GFR (MDRD) Non-Af > 60 (>60) 04/05/22 04:33 Glucose 91 mg/dL (65-99) 04/05/22 04:33 POC Glucose (mg/dL) 133 mg/dL (65-99) H 04/05/22 05:38 Lactic Acid 0.5 mmol/L (0.4-2.0) 04/03/22 04:34 Calcium 8.2 mg/dL (8.5-10.1) L 04/05/22 04:33 Corrected Calcium 9.2 mg/dL (8.5-10.1) 04/05/22 04:33 Total Bilirubin 0.20 mg/dL (0.2-1.0) 04/05/22 04:33 AST 14 Units/L (15-37) L 04/05/22 04:33 ALT 17 Units/L (12-78) 04/05/22 04:33 Alkaline Phosphatase 52 Units/L (46-116) 04/05/22 04:33 Creatine Kinase 31 Units/L (26-192) 04/02/22 02:00 Troponin I High Sens 11.3 ng/L (4.0-60.0) 04/02/22 19:44 B-Natriuretic Peptide 107 pg/mL (0-79) H 04/05/22 04:33 Total Protein 6.4 g/dL (6.4-8.2) 04/05/22 04:33 Albumin 2.8 g/dL (3.4-5.0) L 04/05/22 04:33 Globulin 3.6 g/dL (2.5-4.5) 04/05/22 04:33 Albumin/Globulin Ratio 0.8 Ratio (1.1-2.1) L 04/05/22 04:33 Specimen Type Catherized urine 04/01/22 21:20 Urine Color Brown (YELLOW) 04/01/22 21:20 Urine Appearance Turbid (CLEAR) 04/01/22 21:20 Urine pH 8.0 (5.0 - 8.0) 04/01/22 21:20 Ur Specific [place] 1.015 (1.000-1.030) 04/01/22 21:20 Urine Protein 3+ (NEGATIVE) 04/01/22 21:20 Urine Glucose (UA) Negative (NEGATIVE) 04/01/22 21:20 Urine Ketones 1+ (NEGATIVE) 04/01/22 21:20 Urine Blood 5+ (NEGATIVE) 04/01/22 21:20 Urine Nitrite Positive (NEGATIVE) 04/01/22 21:20 Urine Bilirubin 1+ (NEGATIVE) 04/01/22 21:20 Urine Urobilinogen 3+ (NORMAL) 04/01/22 21:20 Ur Leukocyte Esterase 3+ (NEGATIVE) 04/01/22 21:20 Urine RBC 3-5 /HPF (0-3) A 04/01/22 21:20 Urine WBC 10-20 /HPF (0-5) A 04/01/22 21:20 Ur Squamous Epith Cells Rare /HPF (NEGATIVE) 04/01/22 21:20 Calcium Oxalate Crystal Few /HPF (NEGATIVE) 04/01/22 21:20 Triple Phos Crystals Few /HPF (NEGATIVE) 04/01/22 21:20 Amorphous Sediment 3+ /HPF (NEGATIVE) 04/01/22 21:20 Urine Bacteria 4+ /HPF (NEGATIVE) 04/01/22 21:20 Granular Casts Few /LPF (NEGATIVE) 04/01/22 21:20 Other Casts Few /LPF (NEGATIVE) 04/01/22 21:20 Ur Culture Indicated? Yes/culture set up 04/01/22 21:20 SARS-CoV-2 (PCR) Negative (NEGATIVE) 04/01/22 18:17 Influenza Type A (PCR) Negative (NEGATIVE) 04/01/22 18:17 Influenza Type B (PCR) Negative (NEGATIVE) 04/01/22 18:17 RSV (PCR) Negative (NEGATIVE) 04/01/22 18:17 - Plan (1) Acute UTI Status: Acute Plan: SUPPLEMENTAL OXYGEN, NORMAL SALINE AT 50 ML/HR, FORTAZ 2G IV Q12H, DUONBS QID, PULMICORT NEBS BID, HUMULIN R SLIDING SCALE, OTBS ACHS, AND HER HOME MEDICATIONS WERE RESUMED. (2) COPD with acute bronchitis Status: Acute (3) Leucocytosis Status: Acute Qualifiers: Leukocytosis type: unspecified Qualified Code(s): D72.829 - Elevated white blood cell count, unspecified (4) Shortness of breath Status: Acute (5) Generalized weakness Status: Acute (6) CAD (coronary artery disease) Status: Chronic Qualifiers: Coronary Disease-Associated Artery/Lesion type: [place] artery [place] vs. transplanted heart: [place] heart Associated angina: unspecified whether angina present Qualified Code(s): I25.10 - Atherosclerotic heart disease of [place] coronary artery without angina pectoris (7) Hypertension Status: Chronic Qualifiers: Hypertension type: primary hypertension (8) Hypothyroidism Status: Chronic Qualifiers: Hypothyroidism type: acquired Qualified Code(s): E03.9 - Hypothyroidism, unspecified (9) Anxiety Status: Chronic (10) Degenerative disc disease Status: Chronic Qualifiers: Mid-cervical spinal level: unspecified
[2022-04-05] MEDS: SNACK - Diabetic Appropriate PO SCH (20:00)
[2022-04-05] MEDS: ALBUMIN HUMAN 25%- 100 ML 100 ML IV SCH (20:46)
[2022-04-05] MEDS: AMBIEN PO SCH (20:48)
[2022-04-05] MEDS: LIPITOR TAB 10 MG PO SCH (20:48)
[2022-04-06 07:16] LABS: BASOPHILS # (AUTO) 0.1 X10^3/uL (0.0-0.1); BASOPHILS % (AUTO) 0.9 % (0.2-1.0); EOSINOPHILS # (AUTO) 0.3 x10^3/uL (0.0-0.2); EOSINOPHILS % (AUTO) 2.9 % (0.9-2.9); HEMATOCRIT 29.7 % (36.0-47.0); HEMOGLOBIN 9.5 g/dL (12.0-16.0); LYMPHOCYTES # (AUTO) 2.7 X10^3/uL (1.3-2.9); LYMPHOCYTES % (AUTO) 27.2 % (21.0-51.0); MEAN CORPUSCULAR HEMOGLOBIN 25.9 pg (27.0-34.0); MEAN CORPUSCULAR HGB CONC 32.2 g/dL (33.0-35.0); MEAN CORPUSCULAR VOLUME 80.5 fL (80.0-100.0); MEAN PLATELET VOLUME 7.3 fL (7.4-11.0); MONOCYTES # (AUTO) 0.9 x10^3/uL (0.3-0.8); MONOCYTES % (AUTO) 8.8 % (0.0-13.0); NEUTROPHILS % (AUTO) 60.2 % (42.0-75.0); RED BLOOD COUNT 3.69 X10^6/uL (3.5-5.4); RED CELL DISTRIBUTION WIDTH 19.4 % (11.6-16.5); WHITE BLOOD COUNT 9.9 X10^3/uL (3.6-10.0)
[2022-04-06] MEDS: PERCOCET TAB 5/325 MG PO PRN ×3 (07:26→20:48)
[2022-04-06 07:30] LABS: ALANINE AMINOTRANSFERASE 32 Units/L (12-78); ALBUMIN 3.6 g/dL (3.4-5.0); ALKALINE PHOSPHATASE 65 Units/L (46-116); ASPARTATE AMINO TRANSFERASE 24 Units/L (15-37); BLOOD UREA NITROGEN 12 mg/dL (7-18); CALCIUM 9.3 mg/dL (8.5-10.1); CARBON DIOXIDE 25.7 mmol/L (21-32); CHLORIDE 104 mmol/L (98-107); CREATININE 0.78 mg/dL (0.55-1.02); SODIUM 139 mmol/L (136-145); TOTAL PROTEIN 7.8 g/dL (6.4-8.2); eGFR NON BLACK RACES > 60 (>60)
[2022-04-06] MEDS: DUONEB 0.5 MG/3 MG (3 mL) NEB SCH ×4 (08:20→21:00)
[2022-04-06] MEDS: PULMICORT NEB TX 0.5 MG NEB SCH ×2 (08:20→21:00)
[2022-04-06] MEDS ORDERED: TOPROL XL PO ONE (08:42)
--- NOTE | 2022-04-06 08:46 | RAD ---
HISTORYCOPD EXACERBATION, SOB Relevant Clinical InformationSTUDYCHEST, 1 [id number]/21/2022FINDINGSTrachea is midline, normal heart size there is a left-sided Port-A-Cath with the tip in the SVC. There are chronic changes with increase of the interstitial markings in the upper lobes. The apices are partially obscured by soft tissues unchanged since prior. No dominant alveolar radiopacities, no pleural effusions. There is diffuse emphysemaIMPRESSIONEmphysema with interstitial lung disease. No dominant alveolar radiopacities.Electronically signed by: Linda Saleh (Apr 06, 2022 08:45:03)
[2022-04-06] MEDS: FORTAZ or TAZICEF VIAL INJ 2 G in NS 100 ML IV 100 ML IV SCH ×2 (09:16→20:50)
[2022-04-06] MEDS: FLEXERIL TAB 10 MG PO SCH ×2 (09:16→20:48)
[2022-04-06] MEDS: TOPROL XL PO SCH ×2 (09:16→09:19)
[2022-04-06] MEDS: NEURONTIN CAP 100 MG PO SCH (09:17)
[2022-04-06] MEDS: CARDIZEM CD 360 MG 24-HR PO SCH (09:17)
[2022-04-06] MEDS: BENICAR TAB 40 MG PO SCH (09:17)
[2022-04-06] MEDS: MEGACE PO SCH ×2 (09:17→20:46)
[2022-04-06] MEDS: MAGIC MOUTHWASH (Orig. Formula) PO SCH (09:18)
[2022-04-06] MEDS: LASIX PO SCH ×2 (09:23→20:47)
[2022-04-06] MEDS: NS 1,000 ML IV 1,000 ML IV SCH (12:06)
--- NOTE | 2022-04-06 20:18 | PCM.PROG ---
Progress Note - Progress Note for Day of Date of Exam: 04/05/22 - Subjective Subjective: IS CURRENTLY INPATIENT STATUS FOR TREATMENT OF ACUTE UTI, COPD WITH ACUTE BRONCHITIS, LEUKOCYTOSIS, SHORTNESS OF BREATH, AND GENERALIZED WEAKNESS. TODAY, SHE IS LYING IN BED WITH EYES CLOSED ON MORNING ROUNDS. SHE AWAKENS TO VERBAL STIMULI. SHE CONTINUES WITH COMPLAINTS OF COUGH, SHORNESS OF BREATH, AND LOWER ABDOMINAL PAIN. ON EXAMINATION, HEART IS REGULAR IN RATE AND RHYTHM. BILATERAL LUNGS ARE NOTED WITH DIMINISHED LUNG SOUNDS THROUGHOUT. ABDOMEN IS ROUND, SOFT, AND NOTED WITH NORMAL BOWEL SOUNDS NOTED IN ALL QUADRANTS. WAGNER CATHETER NOTED TO BEDSIDE DRAINAGE. NO UPPER OR LOWER EXTREMITY EDEMA NOTED. HER VITALS THIS MORNING ARE: 99.3-100-18-97%-140/78. SHE IS CURRENTLY UTILIZING OXYGEN VIA NASAL CANNULA AT 2-3 LPM. LABS WERE OBTAINED. WBC 7.2, RBC 2.76, HGB 7.3, HCT 22.0, PLT COUNT 331, SODIUM 139, POTASSIUM 4.3, CHLORIDE 106, BUN 12, CREATININE 0.73, GLUCOSE 91, CALCIUM 8.2, AST 14, ALT 17, ALK PHOS 52, TOTAL PROTEIN 6.4, ALBUMIN 2.8. SPUTUM CULTURE IS POSITIVE FOR GROWTH OF PROTEUS MIRABILIS. URINE CULTURE IS POSITIVE FOR GROWTH OF E.COLI AND PROTEUS MIRABILIS. A CHEST XRAY WAS OBTAINED AND REVEALED: Emphysema with interstitial lung disease overall stable since prior studies. Chronic peribronchial thickening. SHE IS CURRENTLY RECEIVING NORMAL SALINE AT 50 ML/HR, FORTAZ 2G IV Q12H, DUONBS QID, PULMICORT NEBS BID, HUMULIN R SLIDING SCALE, OTBS ACHS, AND HER HOME MEDICATIONS WERE RESUMED. PHYSICAL THERAPY IS WORKING WITH PATIENT DAILY. WE WILL CONTINUE WITH CURRENT PLAN OF CARE TODAY. OTHERWISE, WE WILL FOLLOW-UP WITH AM LABS AND CONTINUE TO MONITOR. TIME SPENT ON CLINICAL ASSESSMENT, REVIEWING LABS AND IMAGING, DECISION MAKING, AND DOCUMENTATION GREAT ER THAN 45 MINUTES. - Past Medical Family Social History Past Med/Fam/Surg Hx: No changes since H&P Allergies: Allergies morphine Allergy (Verified 08/06/20 13:53) rofecoxib [From Vioxx] Allergy (Verified 08/06/20 13:53) - Review of Systems ROS: No change since H&P - Vital Signs and I&O's Vital Signs: Temperature 97.6 F Pulse Rate [Left] 83 Pulse Rate 113 Respiratory Rate 20 Blood Pressure [Right Arm] 121/79 Blood Pressure [Left Arm] 126/61 Blood Pressure 103/60 O2 Sat by Pulse Oximetry 98 Intake and Output: Intake & Output 04/04/22 04/05/22 04/06/22 04/07/22 11:59 11:59 11:59 11:59 Intake Total 2110 / 2110 2162 / 2162 1430 / 1430 2740 / 2740 Output Total 1700 / 1700 1100 / 1100 100 / 100 Balance 410 / 410 1062 / 1062 1330 / 1330 2740 / 2740 - Physical Exam Oriented: Normal Eyes: Normal Ear: Normal Nose: Normal Throat: Normal Respiratory: Generalized, Diminished Cardiovascular: Normal : Normal, Other (WAGNER CATHETER ) Auscultation: Bowel Sounds: Normal Tenderness: Normal Skin: Normal Musculoskeletal: Normal Psychiatric: Normal Mood Description: Calm Affect: Normal Speech Pattern: Clear, Appropriate - Laboratory and Diagnostics Result Diagrams: 04/06/22 06:50 04/06/22 06:50 Labs: 04/02/22 00:45 Blood Blood Culture - Preliminary 04/02/22 00:40 Blood Blood Culture - Preliminary 04/01/22 21:20 Urine,Catheterized Urine Culture - Final Escherichia Coli Proteus Mirabilis 04/02/22 09:30 Sputum - Expectorated Sputum Sputum Culture - Final Proteus Mirabilis 04/02/22 09:30 Sputum - Expectorated Sputum - Final Laboratory WBC 9.9 X10^3/uL (3.6-10.0) 04/06/22 06:50 RBC 3.69 X10^6/uL (3.5-5.4) 04/06/22 06:50 Hgb 9.5 g/dL (12.0-16.0) L D 04/06/22 06:50 Hct 29.7 % (36.0-47.0) L 04/06/22 06:50 MCV 80.5 fL (80.0-100.0) 04/06/22 06:50 MCH 25.9 pg (27.0-34.0) L 04/06/22 06:50 MCHC 32.2 g/dL (33.0-35.0) L 04/06/22 06:50 RDW 19.4 % (11.6-16.5) H 04/06/22 06:50 Plt Count 409 X10^3/uL (150.0-450.0) 04/06/22 06:50 Plt Count Comment Adequate (ADEQUATE) 04/04/22 04:29 MPV 7.3 fL (7.4-11.0) L 04/06/22 06:50 Neut % (Auto) 60.2 % (42.0-75.0) 04/06/22 06:50 Lymph % (Auto) 27.2 % (21.0-51.0) 04/06/22 06:50 [place] % (Auto) 8.8 % (0.0-13.0) 04/06/22 06:50 Eos % (Auto) 2.9 % (0.9-2.9) 04/06/22 06:50 Baso % (Auto) 0.9 % (0.2-1.0) 04/06/22 06:50 Neut # (Auto) 6.0 x10^3/uL (2.2-4.8) H 04/06/22 06:50 Lymph # (Auto) 2.7 X10^3/uL (1.3-2.9) 04/06/22 06:50 Payne # (Auto) 0.9 x10^3/uL (0.3-0.8) H 04/06/22 06:50 Eos # (Auto) 0.3 x10^3/uL (0.0-0.2) H 04/06/22 06:50 Baso # (Auto) 0.1 X10^3/uL (0.0-0.1) 04/06/22 06:50 Absolute Nucleated RBC 0.0 /100WBC 04/06/22 06:50 Total Counted 100 04/02/22 02:00 Neutrophils % (Manual) 80 % (39-76) H 04/02/22 02:00 Band Neutrophils % 1 % (0-10) 04/02/22 02:00 Lymphocytes % (Manual) 13 % (13-43) 04/02/22 02:00 Monocytes % (Manual) 3 % (4-9) L 04/02/22 02:00 Eosinophils % (Manual) 3 % (0-6) 04/02/22 02:00 Plt Morphology Comment Normal (NORMAL) 04/04/22 04:29 RBC Morphology Abnormal (NORMAL) A 04/04/22 04:29 Hypochromasia Slight A 04/04/22 04:29 Poikilocytosis Slight A 04/01/22 17:30 Anisocytosis Slight A 04/04/22 04:29 Target Cells Present 04/04/22 04:29 D-Dimer 3.02 ug/ml (0.0-0.57) H 04/02/22 02:00 Sodium 139 mmol/L (136-145) 04/06/22 06:50 Corrected Sodium TNP 04/06/22 06:50 Potassium 4.5 mmol/L (3.5-5.1) 04/06/22 06:50 Chloride 104 mmol/L (98-107) 04/06/22 06:50 Carbon Dioxide 25.7 mmol/L (21-32) 04/06/22 06:50 BUN 12 mg/dL (7-18) 04/06/22 06:50 Creatinine 0.78 mg/dL (0.55-1.02) 04/06/22 06:50 Est GFR (MDRD) Af Amer > 60 (>60) 04/06/22 06:50 Est GFR (MDRD) Non-Af > 60 (>60) 04/06/22 06:50 Glucose 73 mg/dL (65-99) 04/06/22 06:50 POC Glucose (mg/dL) 78 mg/dL (65-99) 04/06/22 16:28 Lactic Acid 0.5 mmol/L (0.4-2.0) 04/03/22 04:34 Calcium 9.3 mg/dL (8.5-10.1) 04/06/22 06:50 Corrected Calcium TNP 04/06/22 06:50 Total Bilirubin 0.20 mg/dL (0.2-1.0) 04/06/22 06:50 AST 24 Units/L (15-37) 04/06/22 06:50 ALT 32 Units/L (12-78) 04/06/22 06:50 Alkaline Phosphatase 65 Units/L (46-116) 04/06/22 06:50 Creatine Kinase 31 Units/L (26-192) 04/02/22 02:00 Troponin I High Sens 11.3 ng/L (4.0-60.0) 04/02/22 19:44 B-Natriuretic Peptide 289 pg/mL (0-79) H 04/06/22 06:50 Total Protein 7.8 g/dL (6.4-8.2) 04/06/22 06:50 Albumin 3.6 g/dL (3.4-5.0) 04/06/22 06:50 Globulin 4.2 g/dL (2.5-4.5) 04/06/22 06:50 Albumin/Globulin Ratio 0.9 Ratio (1.1-2.1) L 04/06/22 06:50 Specimen Type Catherized urine 04/01/22 21:20 Urine Color Brown (YELLOW) 04/01/22 21:20 Urine Appearance Turbid (CLEAR) 04/01/22 21:20 Urine pH 8.0 (5.0 - 8.0) 04/01/22 21:20 Ur Specific [place] 1.015 (1.000-1.030) 04/01/22 21:20 Urine Protein 3+ (NEGATIVE) 04/01/22 21:20 Urine Glucose (UA) Negative (NEGATIVE) 04/01/22 21:20 Urine Ketones 1+ (NEGATIVE) 04/01/22 21:20 Urine Blood 5+ (NEGATIVE) 04/01/22 21:20 Urine Nitrite Positive (NEGATIVE) 04/01/22 21:20 Urine Bilirubin 1+ (NEGATIVE) 04/01/22 21:20 Urine Urobilinogen 3+ (NORMAL) 04/01/22 21:20 Ur Leukocyte Esterase 3+ (NEGATIVE) 04/01/22 21:20 Urine RBC 3-5 /HPF (0-3) A 04/01/22 21:20 Urine WBC 10-20 /HPF (0-5) A 04/01/22 21:20 Ur Squamous Epith Cells Rare /HPF (NEGATIVE) 04/01/22 21:20 Calcium Oxalate Crystal Few /HPF (NEGATIVE) 04/01/22 21:20 Triple Phos Crystals Few /HPF (NEGATIVE) 04/01/22 21:20 Amorphous Sediment 3+ /HPF (NEGATIVE) 04/01/22 21:20 Urine Bacteria 4+ /HPF (NEGATIVE) 04/01/22 21:20 Granular Casts Few /LPF (NEGATIVE) 12/17/22 21:20 Other Casts Few /LPF (NEGATIVE) 04/01/22 21:20 Ur Culture Indicated? Yes/culture set up 04/01/22 21:20 SARS-CoV-2 (PCR) Negative (NEGATIVE) 04/01/22 18:17 Influenza Type A (PCR) Negative (NEGATIVE) 04/01/22 18:17 Influenza Type B (PCR) Negative (NEGATIVE) 04/01/22 18:17 RSV (PCR) Negative (NEGATIVE) 04/01/22 18:17 - Plan (1) Acute UTI Status: Acute Plan: SUPPLEMENTAL OXYGEN, NORMAL SALINE AT 50 ML/HR, FORTAZ 2G IV Q12H, DUONBS QID, PULMICORT NEBS BID, HUMULIN R SLIDING SCALE, OTBS ACHS, AND HER HOME MEDICATIONS WERE RESUMED. (2) COPD with acute bronchitis Status: Acute (3) Leucocytosis Status: Acute Qualifiers: Leukocytosis type: unspecified Qualified Code(s): D72.829 - Elevated white blood cell count, unspecified (4) Shortness of breath Status: Acute (5) Generalized weakness Status: Acute (6) CAD (coronary artery disease) Status: Chronic Qualifiers: Coronary Disease-Associated Artery/Lesion type: [place] artery [place] vs. transplanted heart: [place] heart Associated angina: unspecified whether angina present Qualified Code(s): I25.10 - Atherosclerotic heart disease of [place] coronary artery without angina pectoris (7) Hypertension Status: Chronic Qualifiers: Hypertension type: primary hypertension (8) Hypothyroidism Status: Chronic Qualifiers: Hypothyroidism type: acquired Qualified Code(s): E03.9 - Hypothyroidism, unspecified (9) Anxiety Status: Chronic (10) Degenerative disc disease Status: Chronic Qualifiers: Mid-cervical spinal level: unspecified
--- NOTE | 2022-04-06 20:23 | PCM.PROG ---
Progress Note - Progress Note for Day of Date of Exam: 04/06/22 - Subjective Subjective: IS CURRENTLY INPATIENT STATUS FOR TREATMENT OF ACUTE UTI, COPD WITH ACUTE BRONCHITIS, LEUKOCYTOSIS, SHORTNESS OF BREATH, AND GENERALIZED WEAKNESS. TODAY, SHE IS ALERT AND ORIENTED, LYING IN BED ON MORNING ROUNDS. SHE CONTINUES WITH COMPLAINTS OF COUGH, SHORNESS OF BREATH, AND GENERALIZED WEAKNESS. ON EXAMINATION, SHE IS TACHYCARDIC WITH HR 110-115. BILATERAL LUNGS ARE NOTED WITH DIMINISHED LUNG SOUNDS THROUGHOUT. ABDOMEN IS ROUND, SOFT, AND NOTED WITH NORMAL BOWEL SOUNDS NOTED IN ALL QUADRANTS. WAGNER CATHETER NOTED TO BEDSIDE DRAINAGE. NO UPPER OR LOWER EXTREMITY EDEMA NOTED. HER VITALS THIS MORNING ARE: 98.5-608-21-100%-180/94. SHE IS CURRENTLY UTILIZING OXYGEN VIA NASAL CANNULA AT 2-3 LPM. LABS WERE OBTAINED. WBC 9.9, RBC 3.69, HGB 9.5, HCT 29.7, PLT COUNT 409, SODIUM 149, POTASSIUM 4.5, CHLORIDE 104, BUN 12, CREATININE 0.78, GLUCOSE 73, CALCIUM 9.3, AST 24, ALT 32, ALK PHOS 65, BNP 289, TOTAL PROTEIN 7.8, ALBUMIN 3.6. SPUTUM CULTURE IS POSITIVE FOR GROWTH OF PROTEUS MIRABILIS. URINE CULTURE IS POSITIVE FOR GROWTH OF E.COLI AND PROTEUS MIRABILIS. A CHEST XRAY WAS OBTAINED AND REVEALED: Emphysema with interstitial lung disease. No dominant alveolar radiopacities. SHE IS CURRENTLY RECEIVING NORMAL SALINE AT 50 ML/HR, FORTAZ 2G IV Q12H, DUONBS QID, PULMICORT NEBS BID, HUMULIN R SLIDING SCALE, OTBS ACHS, AND HER HOME MEDICATIONS WERE RESUMED. PHYSICAL THERAPY IS WORKING WITH PATIENT DAILY. WE WILL CONTINUE WITH CURRENT PLAN OF CARE TODAY. OTHERWISE, WE WILL FOLLOW-UP WITH AM LABS AND CONTINUE TO MONITOR. TIME SPENT ON CLINICAL ASSESSMENT, REVIEWING LABS AND IMAGING, DECISION MAKING, AND DOCUMENTATION GREATER THAN 45 MINUTES. - Past Medical Family Social History Past Med/Fam/Surg Hx: No changes since H&P Allergies: Allergies morphine Allergy (Verified 08/06/20 13:53) rofecoxib [From Vioxx] Allergy (Verified 08/06/20 13:53) - Review of Systems ROS: No change since H&P - Vital Signs and I&O's Vital Signs: Temperature 97.6 F Pulse Rate [Left] 83 Pulse Rate 113 Respiratory Rate 20 Blood Pressure [Right Arm] 121/79 Blood Pressure [Left Arm] 126/61 Blood Pressure 103/60 O2 Sat by Pulse Oximetry 98 Intake and Output: Intake & Output 04/04/22 04/05/22 04/06/22 04/07/22 11:59 11:59 11:59 11:59 Intake Total 2110 / 2110 2162 / 2162 1430 / 1430 2740 / 2740 Output Total 1700 / 1700 1100 / 1100 100 / 100 Balance 410 / 410 1062 / 1062 1330 / 1330 2740 / 2740 - Physical Exam Oriented: Normal Eyes: Normal Ear: Normal Nose: Normal Throat: Normal Respiratory: Generalized, Diminished Cardiovascular: Normal : Normal, Other (WAGNER CATHETER ) Auscultation: Bowel Sounds: Normal Palpation: Normal Tenderness: Normal Skin: Normal Musculoskeletal: Normal Psychiatric: Normal Mood Description: Calm Affect: Normal Speech Pattern: Clear, Appropriate - Laboratory and Diagnostics Result Diagrams: 04/06/22 06:50 04/06/22 06:50 Labs: 04/02/22 00:45 Blood Blood Culture - Preliminary 04/02/22 00:40 Blood Blood Culture - Preliminary 04/01/22 21:20 Urine,Catheterized Urine Culture - Final Escherichia Coli Proteus Mirabilis 04/02/22 09:30 Sputum - Expectorated Sputum Sputum Culture - Final Proteus Mirabilis 04/02/22 09:30 Sputum - Expectorated Sputum - Final Laboratory WBC 9.9 X10^3/uL (3.6-10.0) 04/06/22 06:50 RBC 3.69 X10^6/uL (3.5-5.4) 04/06/22 06:50 Hgb 9.5 g/dL (12.0-16.0) L D 04/06/22 06:50 Hct 29.7 % (36.0-47.0) L 04/06/22 06:50 MCV 80.5 fL (80.0-100.0) 04/06/22 06:50 MCH 25.9 pg (27.0-34.0) L 04/06/22 06:50 MCHC 32.2 g/dL (33.0-35.0) L 04/06/22 06:50 RDW 19.4 % (11.6-16.5) H 04/06/22 06:50 Plt Count 409 X10^3/uL (150.0-450.0) 04/06/22 06:50 Plt Count Comment Adequate (ADEQUATE) 04/04/22 04:29 MPV 7.3 fL (7.4-11.0) L 04/06/22 06:50 Neut % (Auto) 60.2 % (42.0-75.0) 04/06/22 06:50 Lymph % (Auto) 27.2 % (21.0-51.0) 04/06/22 06:50 [place] % (Auto) 8.8 % (0.0-13.0) 04/06/22 06:50 Eos % (Auto) 2.9 % (0.9-2.9) 04/06/22 06:50 Baso % (Auto) 0.9 % (0.2-1.0) 04/06/22 06:50 Neut # (Auto) 6.0 x10^3/uL (2.2-4.8) H 04/06/22 06:50 Lymph # (Auto) 2.7 X10^3/uL (1.3-2.9) 04/06/22 06:50 [place] # (Auto) 0.9 x10^3/uL (0.3-0.8) H 04/06/22 06:50 Eos # (Auto) 0.3 x10^3/uL (0.0-0.2) H 04/06/22 06:50 Baso # (Auto) 0.1 X10^3/uL (0.0-0.1) 04/06/22 06:50 Absolute Nucleated RBC 0.0 /100WBC 04/06/22 06:50 Total Counted 100 04/02/22 02:00 Neutrophils % (Manual) 80 % (39-76) H 04/02/22 02:00 Band Neutrophils % 1 % (0-10) 04/02/22 02:00 Lymphocytes % (Manual) 13 % (13-43) 04/02/22 02:00 Monocytes % (Manual) 3 % (4-9) L 04/02/22 02:00 Eosinophils % (Manual) 3 % (0-6) 04/02/22 02:00 Plt Morphology Comment Normal (NORMAL) 04/04/22 04:29 RBC Morphology Abnormal (NORMAL) A 04/04/22 04:29 Hypochromasia Slight A 04/04/22 04:29 Poikilocytosis Slight A 04/01/22 17:30 Anisocytosis Slight A 04/04/22 04:29 Target Cells Present 04/04/22 04:29 D-Dimer 3.02 ug/ml (0.0-0.57) H 04/02/22 02:00 Sodium 139 mmol/L (136-145) 04/06/22 06:50 Corrected Sodium TNP 04/06/22 06:50 Potassium 4.5 mmol/L (3.5-5.1) 04/06/22 06:50 Chloride 104 mmol/L (98-107) 04/06/22 06:50 Carbon Dioxide 25.7 mmol/L (21-32) 04/06/22 06:50 BUN 12 mg/dL (7-18) 04/06/22 06:50 Creatinine 0.78 mg/dL (0.55-1.02) 04/06/22 06:50 Est GFR (MDRD) Af Amer > 60 (>60) 04/06/22 06:50 Est GFR (MDRD) Non-Af > 60 (>60) 04/06/22 06:50 Glucose 73 mg/dL (65-99) 04/06/22 06:50 POC Glucose (mg/dL) 78 mg/dL (65-99) 04/06/22 16:28 Lactic Acid 0.5 mmol/L (0.4-2.0) 04/03/22 04:34 Calcium 9.3 mg/dL (8.5-10.1) 04/06/22 06:50 Corrected Calcium TNP 04/06/22 06:50 Total Bilirubin 0.20 mg/dL (0.2-1.0) 04/06/22 06:50 AST 24 Units/L (15-37) 04/06/22 06:50 ALT 32 Units/L (12-78) 04/06/22 06:50 Alkaline Phosphatase 65 Units/L (46-116) 04/06/22 06:50 Creatine Kinase 31 Units/L (26-192) 04/02/22 02:00 Troponin I High Sens 11.3 ng/L (4.0-60.0) 04/02/22 19:44 B-Natriuretic Peptide 289 pg/mL (0-79) H 04/06/22 06:50 Total Protein 7.8 g/dL (6.4-8.2) 04/06/22 06:50 Albumin 3.6 g/dL (3.4-5.0) 04/06/22 06:50 Globulin 4.2 g/dL (2.5-4.5) 04/06/22 06:50 Albumin/Globulin Ratio 0.9 Ratio (1.1-2.1) L 04/06/22 06:50 Specimen Type Catherized urine 04/01/22 21:20 Urine Color Brown (YELLOW) 04/01/22 21:20 Urine Appearance Turbid (CLEAR) 04/01/22 21:20 Urine pH 8.0 (5.0 - 8.0) 04/01/22 21:20 Ur Specific [place] 1.015 (1.000-1.030) 04/01/22 21:20 Urine Protein 3+ (NEGATIVE) 04/01/22 21:20 Urine Glucose (UA) Negative (NEGATIVE) 04/01/22 21:20 Urine Ketones 1+ (NEGATIVE) 04/01/22 21:20 Urine Blood 5+ (NEGATIVE) 04/01/22 21:20 Urine Nitrite Positive (NEGATIVE) 04/01/22 21:20 Urine Bilirubin 1+ (NEGATIVE) 04/01/22 21:20 Urine Urobilinogen 3+ (NORMAL) 04/01/22 21:20 Ur Leukocyte Esterase 3+ (NEGATIVE) 04/01/22 21:20 Urine RBC 3-5 /HPF (0-3) A 04/01/22 21:20 Urine WBC 10-20 /HPF (0-5) A 04/01/22 21:20 Ur Squamous Epith Cells Rare /HPF (NEGATIVE) 04/01/22 21:20 Calcium Oxalate Crystal Few /HPF (NEGATIVE) 04/01/22 21:20 Triple Phos Crystals Few /HPF (NEGATIVE) 04/01/22 21:20 Amorphous Sediment 3+ /HPF (NEGATIVE) 04/01/22 21:20 Urine Bacteria 4+ /HPF (NEGATIVE) 04/01/22 21:20 Granular Casts Few /LPF (NEGATIVE) 12/17/22 21:20 Other Casts Few /LPF (NEGATIVE) 04/01/22 21:20 Ur Culture Indicated? Yes/culture set up 04/01/22 21:20 SARS-CoV-2 (PCR) Negative (NEGATIVE) 04/01/22 18:17 Influenza Type A (PCR) Negative (NEGATIVE) 04/01/22 18:17 Influenza Type B (PCR) Negative (NEGATIVE) 04/01/22 18:17 RSV (PCR) Negative (NEGATIVE) 04/01/22 18:17 - Plan (1) Acute UTI Status: Acute Plan: SUPPLEMENTAL OXYGEN, NORMAL SALINE AT 50 ML/HR, FORTAZ 2G IV Q12H, DUONBS QID, PULMICORT NEBS BID, HUMULIN R SLIDING SCALE, OTBS ACHS, AND HER HOME MEDICATIONS WERE RESUMED. (2) COPD with acute bronchitis Status: Acute (3) Leucocytosis Status: Acute Qualifiers: Leukocytosis type: unspecified Qualified Code(s): D72.829 - Elevated white blood cell count, unspecified (4) Shortness of breath Status: Acute (5) Generalized weakness Status: Acute (6) CAD (coronary artery disease) Status: Chronic Qualifiers: Coronary Disease-Associated Artery/Lesion type: [place] artery [place] vs. transplanted heart: [place] heart Associated angina: unspecified whether angina present Qualified Code(s): I25.10 - Atherosclerotic heart disease of [place] coronary artery without angina pectoris (7) Hypertension Status: Chronic Qualifiers: Hypertension type: primary hypertension (8) Hypothyroidism Status: Chronic Qualifiers: Hypothyroidism type: acquired Qualified Code(s): E03.9 - Hypothyroidism, unspecified (9) Anxiety Status: Chronic (10) Degenerative disc disease Status: Chronic Qualifiers: Mid-cervical spinal level: unspecified
[2022-04-06] MEDS: AMBIEN PO SCH (20:46)
[2022-04-06] MEDS: LIPITOR TAB 10 MG PO SCH (20:47)
[2022-04-06] MEDS: SNACK - Diabetic Appropriate PO SCH (20:57)
[2022-04-06] MEDS: ALBUMIN HUMAN 25%- 100 ML 100 ML IV SCH (21:09)
[2022-04-07] MEDS: NS 1,000 ML IV 1,000 ML IV SCH ×2 (03:36→04:24)
[2022-04-07] MEDS: PERCOCET TAB 5/325 MG PO PRN (04:22)
--- NOTE | 2022-04-07 06:16 | RAD ---
HISTORYSOB HX: CVA, CAD, CHF, HTN, ASTHMA, COPD, DM SX: GB, PORTSTUDYCHEST, 1 [id number] trachea is midline. Left Port-A-Cath tip within the right atrium. The cardiac silhouette is unremarkable. The lungs are clear without focal infiltrate or effusion. The bony thorax is unremarkable.IMPRESSIONNo acute cardiopulmonary findings .Electronically signed by: Luis A Mayers (Apr 07, 2022 06:13:34)
[2022-04-07 06:21] LABS: BASOPHILS # (AUTO) 0.1 X10^3/uL (0.0-0.1); BASOPHILS % (AUTO) 0.8 % (0.2-1.0); EOSINOPHILS # (AUTO) 0.3 x10^3/uL (0.0-0.2); EOSINOPHILS % (AUTO) 3.5 % (0.9-2.9); HEMATOCRIT 28.2 % (36.0-47.0); HEMOGLOBIN 9.2 g/dL (12.0-16.0); LYMPHOCYTES # (AUTO) 2.3 X10^3/uL (1.3-2.9); LYMPHOCYTES % (AUTO) 25.1 % (21.0-51.0); MEAN CORPUSCULAR HGB CONC 32.5 g/dL (33.0-35.0); MEAN CORPUSCULAR VOLUME 80.2 fL (80.0-100.0); MEAN PLATELET VOLUME 7.4 fL (7.4-11.0); MONOCYTES # (AUTO) 0.8 x10^3/uL (0.3-0.8); MONOCYTES % (AUTO) 8.7 % (0.0-13.0); NEUTROPHILS # (AUTO) 5.7 x10^3/uL (2.2-4.8); NEUTROPHILS % (AUTO) 61.9 % (42.0-75.0); RED BLOOD COUNT 3.52 X10^6/uL (3.5-5.4); RED CELL DISTRIBUTION WIDTH 19.5 % (11.6-16.5); WHITE BLOOD COUNT 9.3 X10^3/uL (3.6-10.0)
[2022-04-07 06:29] LABS: ALANINE AMINOTRANSFERASE 28 Units/L (12-78); ALBUMIN 3.7 g/dL (3.4-5.0); ALKALINE PHOSPHATASE 58 Units/L (46-116); ASPARTATE AMINO TRANSFERASE 20 Units/L (15-37); BLOOD UREA NITROGEN 13 mg/dL (7-18); CALCIUM 8.8 mg/dL (8.5-10.1); CARBON DIOXIDE 25.3 mmol/L (21-32); CHLORIDE 105 mmol/L (98-107); CREATININE 0.81 mg/dL (0.55-1.02); SODIUM 140 mmol/L (136-145); TOTAL PROTEIN 7.4 g/dL (6.4-8.2); eGFR NON BLACK RACES > 60 (>60)
[2022-04-07] MEDS: PULMICORT NEB TX 0.5 MG NEB SCH (08:05)
[2022-04-07] MEDS: DUONEB 0.5 MG/3 MG (3 mL) NEB SCH (08:05)
[2022-04-07] MEDS ORDERED: TOPROL XL PO ONE (08:07)
[2022-04-07 08:29] VITALS: BP 188/92
[2022-04-07] MEDS: LASIX PO SCH (08:34)
[2022-04-07] MEDS: MEGACE PO SCH (08:34)
[2022-04-07] MEDS: BENICAR TAB 40 MG PO SCH (08:34)
[2022-04-07] MEDS: ULTRAM PO PRN (08:34)
[2022-04-07] MEDS: CARDIZEM CD 360 MG 24-HR PO SCH (08:35)
[2022-04-07] MEDS: TOPROL XL PO SCH (08:35)
[2022-04-07] MEDS: NEURONTIN CAP 100 MG PO SCH (08:35)
[2022-04-07] MEDS: FLEXERIL TAB 10 MG PO SCH (08:35)
[2022-04-07] MEDS: MAGIC MOUTHWASH (Orig. Formula) PO SCH (08:36)
[2022-04-07] MEDS: FORTAZ or TAZICEF VIAL INJ 2 G in NS 100 ML IV 100 ML IV SCH (08:36)
[2022-04-07] MEDS ORDERED: HYDROCHLOROTHIAZIDE 12.5 MG CAP PO SCH (09:00)
--- NOTE | 2022-04-07 10:03 | PCM.DCPLAN ---
DISCHARGE SUMMARY Admission Date Date of Admission: 04/02/22 Discharge Date Discharge Date: 04/07/22 Admission Diagnoses (1) Acute UTI: Status: Acute (2) COPD with acute bronchitis: Status: Acute (3) Leucocytosis: Status: Acute (4) Shortness of breath: Status: Acute (5) Generalized weakness: Status: Acute (6) CAD (coronary artery disease): Status: Chronic (7) Hypertension: Status: Chronic (8) Hypothyroidism: Status: Chronic (9) Anxiety: Status: Chronic (10) Degenerative disc disease: Status: Chronic Discharge Diagnoses Discharge Diagnosis: 1. UTI secondary to E. coli and Proteus mirabilis 2. Bronchopneumonia/COPD exacerbation secondary to Proteus mirabilis 3. Hypertension stable 4. Hypothyroidism 5. Generalized weakness resolved 6. Anxiety 7. Degenerative disc disease 8. Leukocytosis resolved Discharge Medications Discharge Medications: Home Medication List albuterol sulfate 90 mcg/actuation aerosol inhaler (Ventolin HFA) 2 inh inhalation Q4H PRN 04/01/22 [History] alprazolam 0.5 mg tablet 1 tab PO TID PRN 04/01/22 [History] atorvastatin 10 mg tablet 1 tab PO QDAY 04/01/22 [History] clonidine 0.2 mg/24 hr weekly transdermal patch 1 patch transdermal QWEEK 04/01/22 [History] cyclobenzaprine 10 mg tablet 1 tab PO BID 04/01/22 [History] diltiazem HCl 360 mg capsule,extended release 24 hr 1 cap PO QDAY 04/01/22 [History] furosemide 20 mg tablet 1 tab PO BID 04/01/22 [History] gabapentin 100 mg capsule 1 cap PO QDAY 04/01/22 [History] hydrochlorothiazide 12.5 mg capsule 1 cap PO QDAY 04/01/22 [History] lidocaine HCl 2 % mucosal solution (Lidocaine Viscous) 1 applic PO DAILY 04/01/22 [History] megestrol 40 mg tablet 1 tab PO BID 04/01/22 [History] metoprolol succinate 200 mg tablet,extended release 24 hr 1 tab PO QDAY 04/01/22 [History] olmesartan 40 mg tablet 1 tab PO QDAY 04/01/22 [History] oxycodone-acetaminophen 7.5 mg-325 mg tablet 1 tab PO QID PRN 04/01/22 [History] tramadol 50 mg tablet 1 tab PO Q6H PRN 04/01/22 [History] zolpidem 10 mg tablet 1 tab PO QPM 04/01/22 [History] amoxicillin 875 mg-potassium clavulanate 125 mg tablet 1 tab PO Q12H #14 tabs 04/07/22 [Rx] Prescriptions: amoxicillin-pot clavulanate DESTINEY SUBRAMANIAN Hospital Course Vital Signs: Temperature 98.1 F Pulse Rate [Left] 117 Pulse Rate 91 Respiratory Rate 18 Blood Pressure [Right Arm] 188/92 Blood Pressure [Left Arm] 126/61 Blood Pressure 103/60 O2 Sat by Pulse Oximetry 97 Latest Lab Results: Laboratory Last Values WBC 9.3 X10^3/uL (3.6-10.0) 04/07/22 05:47 RBC 3.52 X10^6/uL (3.5-5.4) 04/07/22 05:47 Hgb 9.2 g/dL (12.0-16.0) L 04/07/22 05:47 Hct 28.2 % (36.0-47.0) L 04/07/22 05:47 MCV 80.2 fL (80.0-100.0) 04/07/22 05:47 MCH 26.0 pg (27.0-34.0) L 04/07/22 05:47 MCHC 32.5 g/dL (33.0-35.0) L 04/07/22 05:47 RDW 19.5 % (11.6-16.5) H 04/07/22 05:47 Plt Count 413 X10^3/uL (150.0-450.0) 04/07/22 05:47 Plt Count Comment Adequate (ADEQUATE) 04/04/22 04:29 MPV 7.4 fL (7.4-11.0) 04/07/22 05:47 Neut % (Auto) 61.9 % (42.0-75.0) 04/07/22 05:47 Lymph % (Auto) 25.1 % (21.0-51.0) 04/07/22 05:47 [place] % (Auto) 8.7 % (0.0-13.0) 04/07/22 05:47 Eos % (Auto) 3.5 % (0.9-2.9) H 04/07/22 05:47 Baso % (Auto) 0.8 % (0.2-1.0) 04/07/22 05:47 Neut # (Auto) 5.7 x10^3/uL (2.2-4.8) H 04/07/22 05:47 Lymph # (Auto) 2.3 X10^3/uL (1.3-2.9) 04/07/22 05:47 [place] # (Auto) 0.8 x10^3/uL (0.3-0.8) 04/07/22 05:47 Eos # (Auto) 0.3 x10^3/uL (0.0-0.2) H 04/07/22 05:47 Baso # (Auto) 0.1 X10^3/uL (0.0-0.1) 04/07/22 05:47 Absolute Nucleated RBC 0.0 /100WBC 04/07/22 05:47 Total Counted 100 04/02/22 02:00 Neutrophils % (Manual) 80 % (39-76) H 04/02/22 02:00 Band Neutrophils % 1 % (0-10) 04/02/22 02:00 Lymphocytes % (Manual) 13 % (13-43) 04/02/22 02:00 Monocytes % (Manual) 3 % (4-9) L 04/02/22 02:00 Eosinophils % (Manual) 3 % (0-6) 04/02/22 02:00 Plt Morphology Comment Normal (NORMAL) 04/04/22 04:29 RBC Morphology Abnormal (NORMAL) A 04/04/22 04:29 Hypochromasia Slight A 04/04/22 04:29 Poikilocytosis Slight A 04/01/22 17:30 Anisocytosis Slight A 04/04/22 04:29 Target Cells Present 04/04/22 04:29 D-Dimer 3.02 ug/ml (0.0-0.57) H 04/02/22 02:00 Sodium 140 mmol/L (136-145) 04/07/22 05:47 Corrected Sodium TNP 04/07/22 05:47 Potassium 3.9 mmol/L (3.5-5.1) 04/07/22 05:47 Chloride 105 mmol/L (98-107) 04/07/22 05:47 Carbon Dioxide 25.3 mmol/L (21-32) 04/07/22 05:47 BUN 13 mg/dL (7-18) 04/07/22 05:47 Creatinine 0.81 mg/dL (0.55-1.02) 04/07/22 05:47 Est GFR (MDRD) Af Amer > 60 (>60) 04/07/22 05:47 Est GFR (MDRD) Non-Af > 60 (>60) 04/07/22 05:47 Glucose 89 mg/dL (65-99) 04/07/22 05:47 POC Glucose (mg/dL) 98 mg/dL (65-99) 04/07/22 05:37 Lactic Acid 0.5 mmol/L (0.4-2.0) 04/03/22 04:34 Calcium 8.8 mg/dL (8.5-10.1) 04/07/22 05:47 Corrected Calcium TNP 04/07/22 05:47 Total Bilirubin 0.20 mg/dL (0.2-1.0) 04/07/22 05:47 AST 20 Units/L (15-37) 04/07/22 05:47 ALT 28 Units/L (12-78) 04/07/22 05:47 Alkaline Phosphatase 58 Units/L (46-116) 04/07/22 05:47 Creatine Kinase 31 Units/L (26-192) 04/02/22 02:00 Troponin I High Sens 11.3 ng/L (4.0-60.0) 04/02/22 19:44 B-Natriuretic Peptide 416 pg/mL (0-79) H 04/07/22 05:47 Total Protein 7.4 g/dL (6.4-8.2) 04/07/22 05:47 Albumin 3.7 g/dL (3.4-5.0) 04/07/22 05:47 Globulin 3.7 g/dL (2.5-4.5) 04/07/22 05:47 Albumin/Globulin Ratio 1.0 Ratio (1.1-2.1) L 04/07/22 05:47 Specimen Type Catherized urine 04/01/22 21:20 Urine Color Brown (YELLOW) 04/01/22 21:20 Urine Appearance Turbid (CLEAR) 04/01/22 21:20 Urine pH 8.0 (5.0 - 8.0) 04/01/22 21:20 Ur Specific [place] 1.015 (1.000-1.030) 04/01/22 21:20 Urine Protein 3+ (NEGATIVE) 04/01/22 21:20 Urine Glucose (UA) Negative (NEGATIVE) 04/01/22 21:20 Urine Ketones 1+ (NEGATIVE) 04/01/22 21:20 Urine Blood 5+ (NEGATIVE) 04/01/22 21:20 Urine Nitrite Positive (NEGATIVE) 04/01/22 21:20 Urine Bilirubin 1+ (NEGATIVE) 04/01/22 21:20 Urine Urobilinogen 3+ (NORMAL) 04/01/22 21:20 Ur Leukocyte Esterase 3+ (NEGATIVE) 04/01/22 21:20 Urine RBC 3-5 /HPF (0-3) A 04/01/22 21:20 Urine WBC 10-20 /HPF (0-5) A 04/01/22 21:20 Ur Squamous Epith Cells Rare /HPF (NEGATIVE) 04/01/22 21:20 Calcium Oxalate Crystal Few /HPF (NEGATIVE) 04/01/22 21:20 Triple Phos Crystals Few /HPF (NEGATIVE) 04/01/22 21:20 Amorphous Sediment 3+ /HPF (NEGATIVE) 04/01/22 21:20 Urine Bacteria 4+ /HPF (NEGATIVE) 04/01/22 21:20 Granular Casts Few /LPF (NEGATIVE) 04/01/22 21:20 Other Casts Few /LPF (NEGATIVE) 04/01/22 21:20 Ur Culture Indicated? Yes/culture set up 04/01/22 21:20 SARS-CoV-2 (PCR) Negative (NEGATIVE) 04/01/22 18:17 Influenza Type A (PCR) Negative (NEGATIVE) 04/01/22 18:17 Influenza Type B (PCR) Negative (NEGATIVE) 04/01/22 18:17 RSV (PCR) Negative (NEGATIVE) 04/01/22 18:17 Hospital Course: IS A 71 YEAR OLD PATIENT OF OURS. SHE PRESENTED TO THE ER WITH COMPLAINTS OF SEVERE WEAKNESS, SHORTNESS OF BREATH, PRODUCTIVE COUGH, CHEST CONGESTION, AND DIFFUSE ABDOMINAL PAIN. PATIENT REPORTS THAT SPUTUM IS THICK IN CONSISTENCY AND YELLOW IN COLOR. SHE ALSO REPORTS CHEST CONGESTION AND DISCOMFORT. SHE REPORTS RECENTLY BEING TREATED WITH LEVAQUIN AND PREDNISONE. SHE DENIES IMPROVEMENT IN SYMPTOMS DESPITE COMPLIANCE WITH MEDICATIONS. HER PMH INCLUDES: CAD, HI, HYPERTENSION, COPD, GERD, UTIs, DM II, ANXIETY, DEPRESSION, CHOLECYSTECTOMY, HYSTERECTOMY, RIGHT HIP REPLACEMENT, RIGHT SHOULDER REPLACEMENT. ON ARRIVAL TO THE ER, HER VITALS WERE 98.3-75-24-94%-104/60. HER LABS WERE OBTAINED. WBC 30.2, RBC 3.93, HGB 10.0, HCT 31.8, PLT COUNT 411, D- DIMER 3.02, SODIUM 141, POTASSIUM 4.2, CHLORIDE 104, BUN 54, CREATININE 1.94, GLUCOSE 120, CALCIUM 8.5, TOTAL BILI 0.40, AST 12, ALT 18, ALK PHOS 87, TOTAL PROTEIN 6.9, ALBUMIN 2.7. COVID, INFLUENZA, AND RSV NEGATIVE. A URINALYSIS WAS OBTAINED AND REVEALED: WBC 10-20, RBC 3-5, LEUKOCYTES 3+, BACTERIA 4+, NITRITES POSITIVE. BLOOD AND SPUTUM CULTURES WERE ALSO SET UP. A CHEST XRAY WAS OBTAINED AND REVEALED: 1. Mild diffuse prominence of the interstitial markings (new findings); DDX includes mild noncardiogenic pulmonary congestion, interstitial fibrosis, bronchitis, and mild interstitial pneumonia in the appropriate clinical setting. AN ABDOMEN/PELVIS CT WITHOUT CONTRAST WAS OBTAINED AND REVEALED: Unremarkable CT of the abdomen and pelvis. IN THE ER, SHE WAS LASIX 40MG IV X 1 DOSE, DUONEB X 1, DILAUDID 1MG IV 1, ZOFRAN 4MG IV X 1, ZOSYN 3.375G IV X 1. SHE WAS ADMITTED TO THE HOSPITAL FOR FURTHER EVALUATION AND TREATMENT OF ACUTE UTI, COPD EXACERBATION WITH ACUTE BRONCHITIS, SHORTNESS OF BREATH, LEUKOCYTOSIS. SHE WAS STARTED ON NORMAL SALINE AT 50 ML/HR, FORTAZ 2G IV Q12H, LEVAQUIN 750MG IV DAILY, DUONBS QID, PULMICORT NEBS BID, HUMULIN R SLIDING SCALE, OTBS ACHS, AND HER HOME MEDICATIONS WERE RESUMED. OTHERWISE, WE WILL FOLLOW-UP WITH AM LABS AND CONTINUE TO MONITOR. Patient was continued on duo nebs and she received IV Fortaz and Levaquin for her UTI and bronchopneumonia with COPD exacerbation. We did this for several days and she improved slowly every day. She also had treatment for her chronic medical problems follow-up with her routine medicine. Time of discharge she is feeling much better and reports no new problems. We will be discharging her home today in stable condition. She will be following up with Dr. Souza in the next 7 to 10 days fo hospital follow-up. Discharge medications we will give her Augmentin 875 mg 1 p.o. twice daily for 1 week and she can resume her regular home medicines as before.
== END 2022-04-07 10:55 | disposition home health service (06) | DRG 690 ==
LOC: ER 13:31 → MED/SURG 04-02 02:38
PROVIDERS: ADMIT Internal Medicine; ATTEND Internal Medicine
DX: E11.9 Type 2 diabetes mellitus without complications; J45.998 Other asthma; R10.31 Right lower quadrant pain; B96.4 Proteus (mirabilis) (morganii) as the cause of diseases classified elsewhere; R26.89 Other abnormalities of gait and mobility; B96.29 Other Escherichia coli [E. coli] as the cause of diseases classified elsewhere; I25.2 Old myocardial infarction; Z87.440 Personal history of urinary (tract) infections; R10.32 Left lower quadrant pain; Z99.81 Dependence on supplemental oxygen; Z96.611 Presence of right artificial shoulder joint; J44.0 Chronic obstructive pulmonary disease with (acute) lower respiratory infection; R53.1 Weakness; I10 Essential (primary) hypertension; K21.9 Gastro-esophageal reflux disease without esophagitis; F41.9 Anxiety disorder, unspecified; Z20.822 Contact with and (suspected) exposure to COVID-19; I25.10 Atherosclerotic heart disease of native coronary artery without angina pectoris; M50.320 Other cervical disc degeneration, mid-cervical region, unspecified level; Z96.641 Presence of right artificial hip joint; E03.9 Hypothyroidism, unspecified; J20.9 Acute bronchitis, unspecified; N39.0 Urinary tract infection, site not specified